=== PATIENT | female | born 1995 | race African-American/Black ===

== ENCOUNTER 2021-08-20 11:41 | Emergency (ER) | payer SELFPAY ==
--- NOTE | 2021-08-20 11:58 | PC.NURSE ---
1143 pt ambulated out of ed with steady gait with friend as soon as she was received.
--- NOTE | 2021-08-20 12:07 | PC.NURSE ---
1207 pt returned to ed,
[2021-08-20 12:12] VITALS: BP 137/68; PULSE 95; RESP 17; TEMP 36.2; O2SAT 100
--- NOTE | 2021-08-20 13:53 | PC.NURSE ---
1310 pt again ambulated out of ed with steady gait. has not returned at 1355
== END 2021-08-20 13:10 | disposition left against medical advice (07) ==
LOC: ANHED 14:18
DX: Z53.21 Procedure and treatment not carried out due to patient leaving prior to being seen by health care provider (principal)
CPT/HCPCS: 99199

== ENCOUNTER 2021-11-13 10:21 | Emergency (ER) | payer OTHER, SELFPAY ==
[2021-11-13 10:25] VITALS: BP 120/92; PULSE 95; RESP 18; TEMP 36.6; O2SAT 100
[2021-11-13 11:24] VITALS: PULSE 85; RESP 15
[2021-11-13 11:30] VITALS: PULSE 78; RESP 11
[2021-11-13 11:30] LABS: Beta HCG Quantitative < 2.39 mIU/ML
[2021-11-13 11:31] VITALS: BP 113/69; PULSE 77; RESP 17
--- NOTE | 2021-11-13 11:33 | ED.GENADULT ---
HPI - General Adult General Chief complaint: Recheck/Abnormal Lab/Rx Stated complaint: Lab Work - Possible Time Seen by Provider: 11/13/21 10:24 Source: RN notes reviewed History of Present Illness HPI narrative: Patient presents emergency department from home for possible . 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 Related Data Allergies Allergy/AdvReac Type Severity Reaction Status Date / Time No Known Allergies Allergy Verified 11/13/21 10:33 Review of Systems Review of Systems: Gen.: Denies fevers or chills ENT: Denies congestion Respiratory: Denies shortness of breath or cough CV: Denies chest pain GI: Denies abdominal pain nausea, emesis d see HPI Musculoskeletal: Denies back pain or muscle pain Neuro: Denies numbness, tingling, weakness or focal weakness Skin: Denies rash Except as documented, all other systems reviewed and negative PMF Past Medical History Medical History (Updated 11/13/21 @ 11:35 by Chente Velásquez DO) Ectopic Social History Social History (Updated 11/13/21 @ 11:34 by Chente Velásquez DO) Smoking status: Never smoker Exam Narrative: APPEARANCE: No acute distress, nontoxic, resting in bed EYES: EOMI HEENT: Normocephalic, atraumatic, OMM RESPIRATORY: No respiratory distress Clear to auscultation bilaterally with no rhonchi wheezing or rales. CARDIOVASCULAR: Regular rate and rhythm without murmurs rubs or gallops. ABDOMINAL: Soft, nontender, nondistended, no rebound or guarding MUSCULOSKELETAl: Moves all extremities. No clubbing, cyanosis or edema. NEURO: Awake and alert. Following commands, speech normal, no focal deficits SKIN:: Warm, dry. No rashes lesions or abrasions PSYCHIATRIC: Normal affect/mood, Course Course Emergency Course: Discussed with patient results of workup and diagnosis. Discussed need for follow-up with primary care, proper use of medication, and reasons to return to the emergency department. Patient understands and agrees to current treatment plan Vital Signs Vital signs: Vital Signs Temperature 97.9 F 11/13/21 10:25 Pulse Rate 95 11/13/21 10:25 Respiratory Rate 18 11/13/21 10:25 Blood Pressure 120/92 H 11/13/21 10:25 Pulse Oximetry 100 11/13/21 10:25 Temperature 97.9 F 11/13/21 10:25 Pulse Rate 77 11/13/21 11:31 Respiratory Rate 17 11/13/21 11:31 Blood Pressure 113/69 11/13/21 11:31 Pulse Oximetry 100 11/13/21 10:25 Medical Decision Making Vital Signs Vital Signs: Vital Signs Temperature 97.9 F 11/13/21 10:25 Pulse Rate 95 11/13/21 10:25 Respiratory Rate 18 11/13/21 10:25 Blood Pressure 120/92 H 11/13/21 10:25 Pulse Oximetry 100 11/13/21 10:25 Temperature 97.9 F 11/13/21 10:25 Pulse Rate 77 11/13/21 11:31 Respiratory Rate 17 11/13/21 11:31 Blood Pressure 113/69 11/13/21 11:31 Pulse Oximetry 100 11/13/21 10:25 Lab Data Labs: Lab Results 11/13/21 Range/Units 10:54 Beta HCG, Quant < 2.39 mIU/ML UCG Bedside Result Negative Reference Range: Negative Discharge Plan Discharge Clinical Impression: DUB (dysfunctional uterine bleeding) Patient Disposition: Home, Self-Care Condition: Stable Instructions: Antibiotic Form Follow-up/Referrals: Chandler Arreola MD [Physician] - (Follow-up in 2 to 3 days for further TRUANT OFFICER treatment and evaluation) PHYSICIAN NOT ON STAFF,NONSTAFF [Primary Care Provider] - T
[2021-11-13 11:44] VITALS: TEMP 36.3
== END 2021-11-13 11:45 | disposition home or self-care (01) ==
PROVIDERS: Emergency Provider Emergency Medicine
DX: N93.8 Other specified abnormal uterine and vaginal bleeding (principal)
CPT/HCPCS: 36415; 81025; 84702; 99283

== ENCOUNTER 2023-08-27 13:12 | Outpatient (CLI) | payer OTHER, SELFPAY ==
[2023-08-27 14:08] LABS: Beta HCG Quantitative < 2.39 mIU/ML
[2023-08-31 16:17] LABS: Progesterone 13.2 ng/mL (***)
== END 2023-08-27 13:13 | disposition home or self-care (01) ==
LOC: ANHLAB 13:15
PROVIDERS: Visit Provider Obstetrics & Gynecology
DX: Z32.01 Encounter for pregnancy test, result positive (principal)
CPT/HCPCS: 36415; 84144; 84702

== ENCOUNTER 2023-08-29 12:20 | Outpatient (CLI) | payer OTHER, SELFPAY ==
[2023-08-29 13:19] LABS: Beta HCG Quantitative 11.96 mIU/ML
[2023-09-02 07:22] LABS: Progesterone 9.3 ng/mL (***)
== END 2023-08-29 13:05 | disposition home or self-care (01) ==
LOC: ANHOBOP 12:28 → ANHLDR 12:29
PROVIDERS: Visit Provider Obstetrics & Gynecology
DX: Z34.90 Encounter for supervision of normal pregnancy, unspecified, unspecified trimester (principal); Z3A.00 Weeks of gestation of pregnancy not specified
CPT/HCPCS: 36415; 84144; 84702; 99199

== ENCOUNTER 2023-08-31 13:14 | Outpatient (CLI) | payer OTHER, SELFPAY ==
[2023-08-31 14:02] LABS: Beta HCG Quantitative 18.75 mIU/ML
== END 2023-08-31 13:15 | disposition home or self-care (01) ==
PROVIDERS: Visit Provider Obstetrics & Gynecology
DX: N91.2 Amenorrhea, unspecified (principal); Z32.01 Encounter for pregnancy test, result positive
CPT/HCPCS: 36415; 84702

== ENCOUNTER 2023-09-02 12:54 | Outpatient (CLI) | payer OTHER, SELFPAY | END 2023-09-02 12:55 | disposition home or self-care (01) | LOC: ANHLAB 12:56 | PROVIDERS: Visit Provider Obstetrics & Gynecology | DX: N91.2 Amenorrhea, unspecified (principal) | CPT/HCPCS: 36415; 84702 ==

== ENCOUNTER 2023-10-22 08:29 | Day surgery (SDC) | payer OTHER, SELFPAY ==
[2023-10-22] VITALS (18 sets, daily range): BP systolic 95–132; BP diastolic 41–79; PULSE 79–142; RESP 9–24; TEMP 36.6–36.9; O2SAT 98–100
--- NOTE | ~2023-10-22 | US_ITS ---
Pelvic ultrasound. Clinical History: Miscarriage, first trimester Technique: Realtime transabdominal and transvaginal scanning of the pelvis was performed. Color flow Doppler and Doppler spectral analysis were performed. Findings: The uterus is anteverted. No well-formed gestational sac seen. Endometrial contents are martín ewhat heterogeneous and thickened. There are focal areas of vascular flow in the endometrial contents on delayed imaging.. The right ovary measures 3.2 x 2.1 x 2.5 cm. No significant right ovarian or adnexal mass is seen. The left ovary measures 2.6 x 2.4 cm. No significant left ovarian or adnexal mass is seen. There is no evidence of free fluid in the cul de sac. Impression: Heterogeneous thickened endometrial stripe with areas of color flow suggests spontaneous wit h retained products of conception. No well-formed gestational sac identified. Reviewed, dictated and finalized at [facility]. EL DRAINER Impression: Heterogeneous thickened endometrial stripe with areas of color flow suggests sp ontaneous with retained products of conception. No well-formed gestati onal sac identified.
[2023-10-22] MEDS: SODIUM CHLORIDE 0.9% IV 2,000 ML 999 ML (08:50)
--- NOTE | 2023-10-22 09:00 | ED.FEMALEGU ---
HPI - Female Genitourinary General Chief complaint: Vaginal Bleeding Stated complaint: abd pain, heavy vag bleed Time Seen by Provider: 10/22/23 08:48 Source: patient and EMS Mode of arrival: EMS History of Present Illness HPI Narrative: 27 YEARS OLD FEMALE, 11 WEEKS , 5, PARA 1, 4 CAME TO THE EMERGENCY ROOM BY AMBULANCE FROM HOME WITH EXCESSIVE VAGINAL BLEEDING, BLOOD CLOTS, SEVERE LOWER ABDOMINAL CRAMPS RADIATING TO LOWER BACK. PATIENT IS TELLING ME THAT SHE HAVE HISTORY OF 2 ECTOPIC . Related Data Allergies Allergy/AdvReac Type Severity Reaction Status Date / Time No Known Allergies Allergy Verified 11/13/21 10:33 Review of Systems Review of Systems: All systems reviewed & are unremarkable except as noted in HPI and below PMFSH Past Medical History Medical History Ectopic Social History Social History Smoking status: Never smoker Exam Narrative: GENERAL APPEARANCE: WELL-DEVELOPED, WELL-NOURISHED, IN PAIN SKIN: NORMAL COLOR HEAD: NORMOCEPHALIC, NONTRAUMATIC EYES: CLEAR CONJUNCTIVA ENT: OROPHARYNX NORMAL, EARS NORMAL, NOSE NORMAL NECK: SUPPLE, NONTENDER CHEST AND RESPIRATORY: AIRWAY PATENT, NO RESPIRATORY DISTRESS, NO ACCESSORY MUSCLE USE HEART: REGULAR RATE/RHYTHM ABDOMEN: SOFT, DIFFUSE LOWER ABDOMINAL TENDERNESS, NO GUARDING OR REBOUND NO ORGANOMEGALY, QUIET BOWEL SOUNDS VASCULAR: NORMAL PERIPHERAL PULSES, NORMAL CAPILLARY REFILL. NEUROLOGIC: ALERT AND ORIENTED ?3, COOK 3 PASTRY IS NORMAL TESTED, NO GROSS MOTOR DEFICIT : Speculum Exam - Vagina: vaginal bleeding (ACTIVE VAGINAL BLEEDING, FRESH RED BRIGHT BLOOD WITH A LOT OF BLOOD CLOTS) Speculum Exam - Cervix: Cervical os closed (OPEN CERVIX) Other: VAGINAL PACKING WAS DONE IN THE ED BECAUSE OF THE SEVERITY OF THE BADGE BLEED Course Consultations Consultation #1: DR. KUO GOING TO THE OR FOR D AND C Date: 10/22/23 Time: 10:50 Vital Signs Vital signs: Vital Signs Temperature 36.9 C 10/22/23 08:29 Pulse Rate 142 H 10/22/23 08:29 Respiratory Rate 24 H 10/22/23 08:29 Blood Pressure 123/79 10/22/23 08:29 Pulse Oximetry 100 10/22/23 08:29 Oxygen Delivery Room Air 10/22/23 08:29 Temperature 36.9 C 10/22/23 08:29 Pulse Rate 104 H 10/22/23 10:31 Respiratory Rate 12 10/22/23 10:31 Blood Pressure 114/79 10/22/23 10:31 Pulse Oximetry 100 10/22/23 10:31 Oxygen Delivery Room Air 10/22/23 08:29 MDM - Female Genitourinary MDM Narrative Medical decision making narrative: PATIENT PRESENTS WITH VAGINAL BLEED AND BLOOD CLOTS, PELVIC EXAM SHOWED MODERATE ACTIVE BLEEDING WITH A LOT OF BLOOD CLOTS, VAGINAL PACKING WAS DONE, HEMOGLOBIN IS 9.6 Lab Data 10/22/23 08:57 Labs: Lab Results 10/22/23 Range/Units 08:57 WBC 6.9 (4.5-10.0) K/mm3 RBC 3.53 L (4.2-5.4) M/mm3 Hgb 9.6 L (12.0-15.0) g/dL Hct 30.1 L (37.0-47.0) % MCV 85.3 (80-100) fl MCH 27.2 (26-34) pg MCHC 31.9 L (32-36) g/dl RDW 15.1 H (11.5-14.5) % Plt Count 324 (150-375) k/mm3 MPV 11.3 H (7.4-10.4) fl Immature Gran % (Auto) 0.4 (0-0.5) % Neut % (Auto) 57.5 (45.5-73.1) % Lymph % (Auto) 33.6 (18.3-44.2) % [place] % (Auto) 7.2 (2.6-8.5) % Eos % (Auto) 0.9 (0-4.4) % Baso % (Auto) 0.4 (0.2-1.2) % Lymph # (Auto) 2.32 (0.9-3.2) K/mm3 [place] # (Auto) 0.5 (0.1-0.6) K/mm3 Eos # (Auto) 0.1 (0-0.3) K/mm3 Baso # (Auto) 0.0 (0.0-0.1) K/mm3 Abs Immat Gran (auto) 0.03 (0.00-0.031) K/mm3 Absolute Neuts (auto) 4.0 (1.3-6.7) K/mm3 Absolute Nucle
[2023-10-22 09:05] LABS: Basophils Percent Auto 0.4 % (0.2-1.2); Eosinophils Absolute Auto 0.1 K/mm3 (0-0.3); Eosinophils Percent Auto 0.9 % (0-4.4); Hematocrit 30.1 % (37.0-47.0); Hemoglobin 9.6 g/dL (12.0-15.0); Immature Granulocyte Absolute 0.03 K/mm3 (0.00-0.031); Immature Granulocyte Percent A 0.4 % (0-0.5); Lymphocytes Absolute Auto 2.32 K/mm3 (0.9-3.2); Lymphocytes Percent Auto 33.6 % (18.3-44.2); Mean Corpuscular HGB Conc 31.9 g/dl (32-36); Mean Corpuscular Hemoglobin 27.2 pg (26-34); Mean Corpuscular Volume 85.3 fl (80-100); Mean Platelet Volume 11.3 fl (7.4-10.4); Monocytes Absolute Auto 0.5 K/mm3 (0.1-0.6); Monocytes Percent Auto 7.2 % (2.6-8.5); Neutrophils Percent Auto 57.5 % (45.5-73.1); Platelet Count Result 324 k/mm3 (150-375); Red Blood Count 3.53 M/mm3 (4.2-5.4); Red Cell Distribution Width 15.1 % (11.5-14.5); White Blood Count 6.9 K/mm3 (4.5-10.0)
[2023-10-22] MEDS: ONDANSETRON INJ 4 MG/2 ML VIAL IV PUSH ×2 (09:23→14:08)
[2023-10-22] MEDS: HYDROmorphone HCL INJ (*CRX) 1 MG/ML SYR 0.5 MG IV PUSH (09:24)
[2023-10-22 09:55] LABS: INR 1.1
[2023-10-22 09:56] LABS: Partial Thromboplastin Time 25.1 SECONDS (22.3-36.8)
--- NOTE | 2023-10-22 11:46 | WPDANESEPPF ---
Anes - Initial Pre Proc Eval Procedure: Operation Date: 10/22/23 11:00 Proposed Procedures p Suction Dilation and Curettage - Joseph Leslie MD Date/Time: 10/22/23 11:46 Surgeon: Joseph Leslie MD Pre Op Diagnosis: abd pain, heavy vag bleed Patient Data Age: 27 Gender: F Height: 1.55 m Weight: 81 kg Last Vital Signs Temp 36.6 C 10/22/23 11:37 Pulse 109 H 10/22/23 11:37 Resp 16 10/22/23 11:10 BP 118/53 L 10/22/23 11:37 Pulse Ox 100 10/22/23 11:37 O2 Del Method Room Air 10/22/23 08:29 Allergies Allergy/AdvReac Type Severity Reaction Status Date / Time No Known Allergies Allergy Verified 11/13/21 10:33 Laboratory Tests 10/22/23 08:57 WBC 6.9 K/mm3 (4.5-10.0) RBC 3.53 L M/mm3 (4.2-5.4) Hgb 9.6 L g/dL (12.0-15.0) Hct 30.1 L % (37.0-47.0) MCV 85.3 fl (80-100) MCH 27.2 pg (26-34) MCHC 31.9 L g/dl (32-36) RDW 15.1 H % (11.5-14.5) Plt Count 324 k/mm3 (150-375) MPV 11.3 H fl (7.4-10.4) Immature Gran % (Auto) 0.4 % (0-0.5) Neut % (Auto) 57.5 % (45.5-73.1) Lymph % (Auto) 33.6 % (18.3-44.2) [place] % (Auto) 7.2 % (2.6-8.5) Eos % (Auto) 0.9 % (0-4.4) Baso % (Auto) 0.4 % (0.2-1.2) Lymph # (Auto) 2.32 K/mm3 (0.9-3.2) [place] # (Auto) 0.5 K/mm3 (0.1-0.6) Eos # (Auto) 0.1 K/mm3 (0-0.3) Baso # (Auto) 0.0 K/mm3 (0.0-0.1) Abs Immat Gran (auto) 0.03 K/mm3 (0.00-0.031) Absolute Neuts (auto) 4.0 K/mm3 (1.3-6.7) Absolute Nucleated RBC 0.0 K/mm3 (0.0-0.012) Nucleated RBC % 0.0 % (0.0-0.2) PT 15.0 H Seconds (11.1-14.7) INR 1.1 APTT 25.1 SECONDS (22.3-36.8) Beta HCG, Quant 9230.60 mIU/ML Blood Type A Positive Antibody Screen Negative Screen Not Reportable Baby's Blood Type Not Reportable Baby's ROGER Not Reportable Doses of RhIg Required 0 Patient hx anesthesia problems: none Family hx anesthesia problems: none Results Review: All pre-operative results and documents have been reviewed as part of the pre-operative evaluation. [facility] Past Medical History Medical History Ectopic Social History Social History Smoking status: Never smoker Anes - Eval Final PreProcedure Day of Procedure 10/22/23 11:46 Patient weight: obese Heart: tachycardia Lungs: clear to auscultation Airway: Mallampati scale class II Neurological: alert and oriented Last oral intake: >/= 8 hours ASA classification: III Emergent: no Anesthetic plan: proceed Anesthesia type and monitoring: general GIVS and standard monitoring Results Review: All pre-operative results and documents have been reviewed as part of the pre-operative evaluation. Informed Consent: The patient's anesthetic plan and its attendant risks and benefits were discussed with the patient/family/POA. Questions were solicited and answers provided to the satisfaction of the patient/family/POA.
[2023-10-22] MEDS: LACTATED RINGERS 1,000 ML 30 ML IV CONT ×2 (11:50→13:45)
--- NOTE | 2023-10-22 12:16 | PM.IMHP ---
H&P: HPI History of Present Illness Date/Time: 10/22/23 12:16 Chief Complaint: vaginal bleeding, incomplete miscarriage Narrative: Patient presents for vaginal bleeding since midnight. Was diagnosed on 10/08 with missed miscarriage; was deciding management options when she started having worsening bleeding. Also reports dizziness and lightheadedness. Abdominal cramping. Denies fevers or chills. Was seen in the ER, had Hgb 9.6 and tachycardic. Review of Systems Review of Systems: All systems reviewed & are unremarkable except as noted in HPI and below PMFSH Past Medical History Medical History Ectopic Social History Social History Smoking status: Never smoker Meds Home Medications and Allergies Allergies Allergy/AdvReac Type Severity Reaction Status Date / Time No Known Allergies Allergy Verified 11/13/21 10:33 Vital Signs Vital Signs - 24 hr 10/22/23 08:29 10/22/23 08:36 10/22/23 08:51 Temperature 98.4 F Pulse Rate 142 H 141 H 120 H Respiratory Rate 24 H 15 16 Blood Pressure 123/79 123/79 123/57 L Pulse Oximetry 100 100 100 Oxygen Delivery Room Air 10/22/23 09:25 10/22/23 09:31 10/22/23 09:46 Temperature Pulse Rate 104 H 112 H 101 H Respiratory Rate 16 9 L 14 Blood Pressure 102/66 114/75 124/70 Pulse Oximetry 100 100 100 Oxygen Delivery 10/22/23 10:01 10/22/23 10:16 10/22/23 10:21 Temperature Pulse Rate 121 H 121 H 96 Respiratory Rate 11 L 12 20 Blood Pressure 132/72 95/69 L 114/58 L Pulse Oximetry 100 100 100 Oxygen Delivery 10/22/23 10:31 10/22/23 11:10 10/22/23 10:46 Temperature Pulse Rate 104 H 96 101 H Respiratory Rate 12 16 9 L Blood Pressure 114/79 108/58 L 110/53 L Pulse Oximetry 100 100 100 Oxygen Delivery 10/22/23 11:37 10/22/23 11:21 Temperature 97.9 F 97.9 F Pulse Rate 109 H 109 H Respiratory Rate Blood Pressure 118/53 L 118/53 L Pulse Oximetry 100 100 Oxygen Delivery Room Air Exam Const: General: comfortable and no acute distress Eyes: General: appearance normal, both eyes and all related structures Resp: Effort & Inspection: normal respiratory effort Cardio: Rate: tachycardic Rhythm: regular rhythm Skin: General skin exam: normal color Extrem: General: normal to inspection Psych: Mental Status: mental status grossly normal H&P: Results Labs Labs: Short CBC 10/22/23 Range/Units 08:57 WBC 6.9 (4.5-10.0) K/mm3 Hgb 9.6 L (12.0-15.0) g/dL Hct 30.1 L (37.0-47.0) % Plt Count 324 (150-375) k/mm3 Assessment and Plan Assessment and plan (1) Incomplete : Code(s): O03.4 - Incomplete spontaneous without complication Status: Acute Assessment and Plan: Vaginal bleeding starting at midnight Tachycardic in ER Pelvic US in ER demonstrates heterogenous contents, no gestational sac or embryo c/w incomplete Ab R/b/a of the procedure discussed with the patient, who agrees to suction D&C Will proceed with suction D&C
--- NOTE | 2023-10-22 12:24 | WPDHPUPDATE1 ---
History and Physical Update Update Date/Time: 10/22/23 12:24 History and Physical has been reviewed, including an updated exam of the patient. There are NO changes in the patient's condition. Risks, benefits, and alternatives have been discussed and questions answered. Patient agrees to proceed with procedure.
[2023-10-22] MEDS: LIDOCAINE HCL 1% LOCAL INJ 10 ML VIAL INFILTRATE (12:46)
[2023-10-22] MEDS: fentaNYL CITRATE INJ (*CRX) 100 MCG/2 ML VIAL 25 MCG IV PUSH ×3 (13:09→13:25)
--- NOTE | 2023-10-22 13:37 | SUR.PHASEII ---
DR. CAMPBELL CALLED RE: PATIENT'S REQUEST FOR PAIN MED PRESCRIPTION.
[2023-10-22] MEDS: oxyCODONE HCL (*CRX) 5 MG TAB IR PO (14:26)
--- NOTE | 2023-10-22 15:04 | W.PM.PROC2 ---
Procedure Note - Detailed Date of Procedure 10/22/23 Pre-op Diagnosis abd pain, heavy vag bleed Post-op Diagnosis Same Procedure Performed suction D&C Surgeon Cleveland Bass MD Anesthesia MAC Findings large amount of blood and clots in vaginal vault, large piece of tissue at external os, uterus well contracted and bleeding minimal at end of procedure Description of Procedure The patient was then taken to the operating room with IVFs running. She was placed in the dorsal supine position where she received MAC anesthesia without any difficulty.?? The patient was placed in the dorsal lithotomy position using selena stirrups. EUA revealed the above findings. She was then prepped and draped in a normal sterile fashion. A time-out procedure was performed and all members of the OR team agreed on the patient and plan. A bivalved speculum was then inserted into the patient's vagina.? The anterior lip of the cervix was grasped with a ring forceps.The suction curette was tested outside the patient and found to be working properly.? The curette was then advanced into the intrauterine cavity and circumferentially removed.? All products of conception were removed until little tissue was seen passing through the tubing.? A sharp curettage was then performed until a gritty texture was noted.? The specimen was sent to pathology.? The ring forceps was removed from the anterior lip of the cervix.? The bivalve speculum was removed.? The patient tolerated the procedure well.? Sponge, lap, needle, and instrument counts were correct X3.? The patient was awakened from anesthesia and taken to the recovery room in stable condition. ? Estimated Blood Loss 50 Pathology Yes (products of conception for genetic testing) Condition Stable Disposition Same day
== END 2023-10-22 14:30 | disposition home or self-care (01) ==
LOC: ANHED 10:52 → ANHSURGERY 11:05
PROVIDERS: Obstetrics & Gynecology; Emergency Provider Emergency Medicine; Visit Provider Obstetrics & Gynecology
PROC: (CPT 59812; principal; 2023-10-22 11:00)
DX: O03.4 Incomplete spontaneous abortion without complication (principal)
CPT/HCPCS: 59812; 36415; 76801; 84702; 85025; 85461; 85610; 85730; 86850; 86900; 86901; 88264; 88305; 96360; 99285; A9270; J1170; J2250; J2405; J2704; J3010; J7030; J7120

== ENCOUNTER 2023-10-27 01:43 | Emergency (ER) | payer OTHER, SELFPAY ==
[2023-10-27 01:49] VITALS: BP 130/66; PULSE 97; RESP 16; TEMP 36.4; O2SAT 100
--- NOTE | 2023-10-27 03:26 | PC.NURSE ---
Patient walked out before being brought back to room.
== END 2023-10-27 03:39 | disposition left against medical advice (07) ==
LOC: ANHED 03:32
DX: R42 Dizziness and giddiness (principal)
CPT/HCPCS: 99199

== ENCOUNTER 2023-10-29 16:08 | Observation (INO) | payer OTHER, SELFPAY ==
[2023-10-29] VITALS (9 sets, daily range): BP systolic 114–148; BP diastolic 65–77; PULSE 83–120; RESP 12–18; TEMP 36.2–37.1; O2SAT 100; BMI 32.8
--- NOTE | 2023-10-29 14:20 | ADMGEN ---
This patient, Marnie Jones, was admitted to 3 Med Surg Room 319-01 @ 1420. Patient/family oriented to hospital policies and general routines including ID bracelet, bed and alarms, visiting hours, pain management, procedures, bathroom and other care routines, personal items, smoking policy, room service/diet, and visiting hours. Information on how to activate the Rapid Response Team has been discussed. Patient/Family are encouraged to report perceived risks to care and to ask questions if they do not understand what they are told or what they should do.
--- NOTE | 2023-10-29 16:10 | PM.IMHP ---
H&P: HPI History of Present Illness Date/Time: 10/29/23 16:15 Chief Complaint: Symptomatic anemia. 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 Bass. [facility] [place] Past Medical History Medical History Ectopic Social History Social History Years smoked: 15 Smoking status: Current every day smoker Tobacco type: cigarettes Alcohol intake: current Drinks per week: 1 Substance use: never Do You Feel Safe in your Home?: Yes Lack of Transportation: No Lack of Food: Never True Current Housing: I Have Housing Concerned About Future Housing: No Difficulty Paying Gas/Electric Bills: No Difficulty Paying for Meds: No Currently Unemployed: No Education: Decline to Answer Difficulty w/ Childcare or Family Care: No Spiritual care concerns: No Meds Home Medications and Allergies Home Medications Medication Instructions Recorded Confirmed Type diphenhydramine HCl 25 mg capsule 25 mg PO DAILY 10/29/23 10/29/23 History (Banophen) metoclopramide HCl 10 mg tablet 10 mg PO DAILY 10/29/23 10/29/23 History sumatriptan succinate 50 mg tablet 50 mg PO BID 10/29/23 10/29/23 History Allergies Allergy/AdvReac Type Severity Reaction Status Date / Time No Known Allergies Allergy Verified 11/13/21 10:33 Vital Signs Vital Signs - 24 hr 10/29/23 14:51 Temperature 97.6 F Pulse Rate 120 H Respiratory Rate 17 Blood Pressure 124/72 Pulse Oximetry 100
[2023-10-29 16:38] LABS: Mean Corpuscular Hemoglobin 26.6 pg (26-34); Mean Corpuscular Volume 88.8 fl (80-100); Mean Platelet Volume 9.8 fl (7.4-10.4); Platelet Count Result 445 k/mm3 (150-375); Red Blood Count 2.33 M/mm3 (4.2-5.4); Red Cell Distribution Width 15.9 % (11.5-14.5); White Blood Count 10.8 K/mm3 (4.5-10.0)
[2023-10-29 16:41] LABS: Hematocrit 20.7 % (37.0-47.0); Hemoglobin 6.2 g/dL (12.0-15.0)
[2023-10-29 16:46] LABS: Iron 24 ug/dL (37-170)
[2023-10-29 16:48] LABS: Anion Gap 6 mmol/L (8-16); Blood Urea Nitrogen 6 mg/dL (7-17); Calcium 8.4 mg/dL (8.4-10.2); Carbon Dioxide 24 mmol/L (22-30); Chloride 108 mmol/L (98-107); Estimated CRCL calculation 99 ml/min; Estimated Glomerular Filt Rate > 60; Glucose 104 mg/dL (65-110); Potassium 3.8 mmol/L (3.4-5.0); Sodium 138 mmol/L (137-145)
[2023-10-29 16:55] LABS: Percent Iron Saturation 6 % (20-50)
[2023-10-29 17:19] LABS: Thyroid Stimulating Hormone Reflex 0.531 uIU/mL (0.465-4.68)
[2023-10-29 17:23] LABS: Ferritin 7.51 ng/mL (6.24-137)
--- NOTE | 2023-10-29 17:35 | PC.NURSE ---
The pt disclosed to this RN that she is very anxious about receiving a blood transfusion and that she has never had one before. This RN attempted to educate pt on blood transfusions and quell pt's anxiety. The pt seemed very distraught and asked this RN if she could step outside 'for some fresh air' and to 'smoke a cigarette to calm her nerves.' This RN explained hospital policies and risk factors/safety precautions about leaving the floor, and told the pt that this RN would reach out to the MD to see if there was anything that could be done to reassure the pt. The pt agreed with this plan of action and expressed understanding of the hospital policies. Not even 10-15 minutes after this conversation, other hospital staff witnessed the pt and pt's go into the elevator. plisse machine operator helper was alerted and charge accounts audit clerk was able to confront the pt and pt's before they exited the building. plisse machine operator helper walked pt and pt's back to their room and re-educated on hospital policy. Pt expressed that she wanted to leave against medical advice due to family obligations. This RN notified .
[2023-10-29 17:53] LABS: Folic Acid 7.4 ng/mL (2.76->20)
[2023-10-29] MEDS: TUBING, BLOOD PLUM PUMP TUBING 1 EACH XX (18:49)
[2023-10-29] MEDS: SODIUM CHLORIDE 0.9% IV 250 ML 30 ML IV CONT (18:49)
[2023-10-29] MEDS: ALPRAZolam (*CRX) 0.25 MG TABLET PO (19:04)
--- NOTE | 2023-10-29 23:06 | PM.SD2 ---
Same Day Admit/Disch: HPI History of Present Illness Chief complaint: Symptomatic Anemia Narrative: This is a pleasant 27-year-old female who was directly admitted at the request of her TRANSFER AND LINE UP WORKER specialist, Dr. Cleveland Bass, for blood transfusion due to symptomatic anemia. She was diagnosed on 10/18/2023 with missed miscarriage and was deciding management options when she started to have significant bleeding with large amounts of clots. She was seen in the emergency department for evaluation on 10/22/2023 at which time she was tachycardic with a hemoglobin of 9.6. She was taken to the OR for suction D&C and she was stable to be discharged home for close follow-up thereafter. Since that time she has noticed progressive fatigue, shortness of breath with exertion, sensations of racing heart, and she has been having headaches. She saw Dr. Bass in follow-up yesterday and lab work done at that time showed that her hemoglobin was below 7 g and she is being directly admitted for blood transfusion. Hemoglobin and hematocrit are currently 6.2 and 20.7% respectively. She has mild spotting but denies significant vaginal bleeding. [facility] Past Medical History Medical History Ectopic Surgical History Surgical History History of dilation and curettage History of surgery on upper extremity Family History Family History Other Family history non-contributory Social History Social History Years smoked: 15 Smoking status: Current every day smoker Tobacco type: cigarettes Alcohol intake: current Drinks per week: 1 Substance use: never Do You Feel Safe in your Home?: Yes Lack of Transportation: No Lack of Food: Never True Current Housing: I Have Housing Concerned About Future Housing: No Difficulty Paying Gas/Electric Bills: No Difficulty Paying for Meds: No Currently Unemployed: No Education: Decline to Answer Difficulty w/ Childcare or Family Care: No Spiritual care concerns: No Same Day Admit/Disch: Med Pre-admit Medications Home Medications Medication Instructions Recorded Confirmed Type ferrous sulfate 325 mg (65 mg 325 mg PO DAILY #30 tabs 10/29/23 Rx iron) tablet sumatriptan succinate 50 mg tablet 50 mg PO BID 10/29/23 10/29/23 History Review of Systems Review of Systems Twelve systems were reviewed. No syncope or near sycope. No fever, chills, or sweats. She denies cold and flu symptoms. No chest or pleuritic pain. No lower extremity edema. No abdomen or pelvic pain. Except as documented, all other systems were reviewed and are negative. Exam Narrative: General: Well-developed, nontoxic-appearing female sitting up in bed in no acute distress. Weight: 78.8 kg. BMI: 32.8. HEENT: PERRL, EOMI. Sclera anicteric. Pale conjunctiva. Moist mucous membranes. Neck: Supple. Respiratory: Lungs are clear to auscultation bilaterally. Cardiovascular: Regular rate and rhythm with S1-S2. Gastrointestinal: Abdomen is soft, nontender, and nondistended with positive bowel sounds. Skin: Warm and dry. Palms are pale. Extremities: No cyanosis, clubbing, or edema. Radial and pedal pulses intact. Neurological: Alert. Cranial nerves 2-12 are grossly intact. No gross focal deficits to casual conversation. Psychiatric: Pleasant and cooperative with normal mood and affect. Judgment and insight intact. DS: Data Data Completed and Pending Labs on day of discharge: Labs from last 24 hours 10/29/23 16:27 WBC 10.8 H RBC 2.33 L Hgb 6.2 L* D Hct 20.7 L* MCV 88.8 MCH 26.6 MCHC 30.0 L RDW 15.9 H Plt Count 445 H MPV 9.8 Sodium 138 Potassium 3.8 Chloride 108 H Carbon Dioxide 24 Anion Gap 6 L BUN 6 L Creatinine 0.70 Estim Creat Clear Kvng
== END 2023-10-29 23:45 | disposition home or self-care (01) ==
PROVIDERS: Physician Assistant; Admitting Provider Internal Medicine; Visit Provider Internal Medicine
DX: D50.9 Iron deficiency anemia, unspecified (principal); Z98.890 Other specified postprocedural states; F17.210 Nicotine dependence, cigarettes, uncomplicated; F10.90 Alcohol use, unspecified, uncomplicated; Z79.899 Other long term (current) drug therapy
CPT/HCPCS: 36415; 36430; 80048; 82607; 82728; 82746; 83540; 83550; 84443; 85027; 86850; 86900; 86901; 86923; 96360; 96361; A9270; G0378; G0379; J7050; P9016

== ENCOUNTER 2023-10-30 12:01 | Outpatient (CLI) | payer OTHER, SELFPAY ==
[2023-10-30 13:14] LABS: Hematocrit 31.4 % (37.0-47.0); Hemoglobin 10.2 g/dL (12.0-15.0); Mean Corpuscular HGB Conc 32.5 g/dl (32-36); Mean Corpuscular Hemoglobin 28.5 pg (26-34); Mean Corpuscular Volume 87.7 fl (80-100); Mean Platelet Volume 9.7 fl (7.4-10.4); Platelet Count Result 490 k/mm3 (150-375); Red Blood Count 3.58 M/mm3 (4.2-5.4); Red Cell Distribution Width 14.9 % (11.5-14.5); White Blood Count 11.6 K/mm3 (4.5-10.0)
== END 2023-10-30 12:02 | disposition home or self-care (01) ==
LOC: ANHLAB 12:02
PROVIDERS: Visit Provider Physician Assistant
DX: E61.1 Iron deficiency (principal); D64.9 Anemia, unspecified
CPT/HCPCS: 36415; 85027

== ENCOUNTER 2024-03-11 13:37 | Outpatient (CLI) | payer OTHER, SELFPAY ==
[2024-03-11 14:41] LABS: Beta HCG Quantitative 33.72 mIU/ML
== END 2024-03-11 13:38 | disposition home or self-care (01) ==
PROVIDERS: Visit Provider Obstetrics & Gynecology
DX: Z32.01 Encounter for pregnancy test, result positive (principal); N91.2 Amenorrhea, unspecified
CPT/HCPCS: 36415; 84702

== ENCOUNTER 2024-03-19 10:35 | Outpatient (RCR) | payer OTHER, SELFPAY ==
--- NOTE | ~2024-03-19 | US_ITS ---
EXAMINATION: US OB <=14 wk fetus w TV DATE: 03/19/2024 11:31 INDICATION: Right-sided cramping during first trimester TECHNIQUE: Real-time pelvic ultrasound utilizing both a transvaginal and transabdominal probe was pe rformed. The interpreting radiologist was not present for the study. COMPARISON: None. FINDINGS: The uterus measures 8.5 x 5.5 x 5.4 cm. There is a possible intrauterine gestational sac with sugges tion of a double decidual sign on the cine imaging and with mean sac diameter of 3.5 mm. No evident y olk sac or pole identified. The right ovary measures 3.6 x 2.3 x 2.5 cm. The left ovary measures 2.6 x 2.0 x 1.8 cm. Vascular eula w identified on color Doppler at both ovaries. There is and minimal amount of anechoic free fluid in the deep pelvis. IMPRESSION: 1. 3.5 mm likely but not definitively intrauterine gestational sac which is without evident yolk sac or pole likely due to early stage of . Differential would include early, failed or les s likely ectopic . 2. Gestational age by ultrasound based upon mean sac diameter of 5 weeks 1 day(s) +/- 3 day(s) with ultrasound estimated date of delivery ([facility]IE) of 11/18/24. Reviewed, dictated and finalized at location A. IMPRESSION: 1. 3.5 mm likely but not definitively intrauterine gestational sac which is wit hout evident yolk sac or pole likely due to early stage of . Dif ferential would include early, failed or less likely ectopic . 2. Gestational age by ultrasound based upon mean sac diameter of 5 weeks 1 day (s) +/- 3 day(s) with ultrasound estimated date of delivery ([facility]ILLIE) of 11/18/24.
--- NOTE | 2024-03-19 11:55 | PC.NURSE ---
Dr. Leslie on unit. Informed of ultrasound report and beta-HCG level. Instruct pt to return in 2 days for repeat beta-HCG and follow up in office this week.
[2024-03-20 21:33] LABS: Progesterone 8.6 ng/mL
== END 2024-06-17 23:59 | disposition home or self-care (01) ==
LOC: ANHOBOP 10:35
PROVIDERS: Obstetrics & Gynecology; Visit Provider Obstetrics & Gynecology
DX: N91.2 Amenorrhea, unspecified (principal)
CPT/HCPCS: 36415; 76801; 76817; 84144; 84702

== ENCOUNTER 2024-04-30 14:21 | Emergency (ER) | payer OTHER, SELFPAY ==
--- NOTE | 2024-04-30 15:10 | PC.NURSE ---
pt ambulated out of ED with sig other, did not want to eait any longer
== END 2024-04-30 15:10 | disposition left against medical advice (07) ==
LOC: ANHED 16:36
DX: O26.851 Spotting complicating pregnancy, first trimester (principal); Z3A.11 11 weeks gestation of pregnancy
CPT/HCPCS: 99199

== ENCOUNTER 2024-09-11 02:13 | Emergency (ER) | payer OTHER, SELFPAY ==
--- NOTE | 2024-09-11 02:05 | ECG_ITS ---
Test Date: 2024-09-11 02:12:26 Measurements Intervals [place] Rate: 89 P: 53 ID: [id number] QRS: 18 QRSD: 89 T: 9 QT: 339 QTc: 414 Interpretive Statements SINUS RHYTHM WITH OCCASIONAL VENTRICULAR PREMATURE COMPLEXES No previous ECG available for comparison Electronically Signed On 09-12-2024 14:50:41 [facility] by Buddy Horner M.D.
[2024-09-11 02:10] VITALS: BP 114/71; PULSE 94; RESP 16; TEMP 36.6; O2SAT 100
[2024-09-11 02:26] LABS: Basophils Percent Auto 0.3 % (0.2-1.2); Eosinophils Absolute Auto 0.2 K/mm3 (0-0.3); Eosinophils Percent Auto 1.5 % (0-4.4); Hematocrit 31.4 % (37.0-47.0); Hemoglobin 10.5 g/dL (12.0-15.0); Immature Granulocyte Absolute 0.09 K/mm3 (0.00-0.031); Immature Granulocyte Percent A 0.9 % (0-0.5); Lymphocytes Absolute Auto 2.15 K/mm3 (0.9-3.2); Lymphocytes Percent Auto 21.5 % (18.3-44.2); Mean Corpuscular HGB Conc 33.4 g/dl (32-36); Mean Corpuscular Volume 83.7 fl (80-100); Mean Platelet Volume 10.4 fl (7.4-10.4); Monocytes Absolute Auto 0.7 K/mm3 (0.1-0.6); Monocytes Percent Auto 6.9 % (2.6-8.5); Neutrophils Absolute Auto 6.9 K/mm3 (1.3-6.7); Neutrophils Percent Auto 68.9 % (45.5-73.1); Platelet Count Result 282 k/mm3 (150-375); Red Blood Count 3.75 M/mm3 (4.2-5.4); Red Cell Distribution Width 13.6 % (11.5-14.5)
[2024-09-11 02:37] LABS: Prothrombin Time 13.6 Seconds (11.1-14.7)
[2024-09-11 02:38] LABS: Alanine Aminotransferase 13 U/L (6-35); Albumin Level 3.6 g/dL (3.5-5.1); Alkaline Phosphatase 100 U/L (38-126); Anion Gap 7 mmol/L (4-12); Aspartate Amino Transferase 16 U/L (14-36); Bilirubin,Total 0.3 mg/dL (0.2-1.3); Blood Urea Nitrogen 4 mg/dL (7-17); Calcium 8.8 mg/dL (8.4-10.2); Carbon Dioxide 17 mmol/L (22-30); Chloride 109 mmol/L (98-107); Estimated CRCL calculation 162 ml/min; Estimated Glomerular Filt Rate > 60; Glucose 94 mg/dL (65-110); Lipase 77 U/L (23-300); Magnesium 1.5 mg/dL (1.6-2.3); Potassium 3.2 mmol/L (3.4-5.0); Sodium 133 mmol/L (137-145)
[2024-09-11] MEDS: SODIUM CHLORIDE 0.9% IV 1,000 ML 999 ML IV CONT (02:43)
--- NOTE | 2024-09-11 03:18 | ED_ITS ---
HPI - Arrhythmia/Palpitations General Chief Complaint: Arrhythmia/Palpitations Stated Complaint: rapid heart rate History of Present Illness HPI narrative: Patient is a 28-year-old female who presents to the emergency department this evening via EMS due to palpitations. Patient admits that she does have a history of SVT and today when her heart started racing she called EMS due to concern for this. Per EMS report, upon their arrival, they did attempt vagal maneuver twice with improvement of patient's symptoms. Patient's initial heart rate was over 150. Upon arrival to the emergency department, patient is back in sinus rhythm. Patient admits that she does have a history of SVT and that this is not her 1st time. Denies any chest pain or shortness of breath, denies any abdominal pain. Patient is approximately 28 weeks . Denies any vaginal bleeding or spotting. No additional symptoms or concerns at this time. Related Data Home Medications ?Medication ?Instructions ?Recorded ?Confirmed ?Last Taken ?Type sumatriptan succinate 50 mg tablet 50 mg PO BID 10/29/23 10/29/23 10/28/23 09:00 History Allergies Allergy/AdvReac Type Severity Reaction Status Date / Time No Known Allergies Allergy Verified 11/13/21 10:33 Review of Systems 2 Review of Systems: All systems are reviewed and are negative unless stated otherwise in the HPI. [facility] Past Medical History Medical History Ectopic Surgical History Surgical History History of surgery on upper extremity History of dilation and curettage Family History Family History Other Family history non-contributory Social History Social History Years smoked: 15 Smoking status: Current every day smoker Tobacco type: cigarettes Alcohol intake: current Drinks per week: 1 Substance use: never Do You Feel Safe in your Home?: Yes Lack of Transportation: No Lack of Food: Never True Current Housing: I Have Housing Concerned About Future Housing: No Difficulty Paying Gas/Electric Bills: No Difficulty Paying for Meds: No Currently Unemployed: No Education: Decline to Answer Difficulty w/ Childcare or Family Care: No Spiritual care concerns: No Exam 2 Narrative: General: Alert, awake, afebrile, in no acute distress. HEENT: PERRL, no rhinorrhea, no post nasal drip, oropharynx clear. Neck: Trachea midline, no JVD, no lymphadenopathy. Cardiovascular: Regular rate and rhythm, no murmurs, rubs or gallops, no peripheral edema. Respiratory: Clear to auscultation bilaterally, no tachypnea, no wheezing, no rhonchi, no rubs, no respiratory distress. Abdomen: Gravid, nontender, no rebound, no guarding, no peritoneal signs. Musculoskeletal: No joint swelling or deformity, normal muscle tone. Skin: No rashes or petechia, no signs of infection. Psychiatric: Alert and oriented, normal behavior and judgment for situation. Neurological: Alert and oriented to person, place, and time. Follows all commands. No focal deficits, speech is clear and fluent. Course Vital Signs Vital signs: Vital Signs Temperature 97.8 F 09/11/24 02:10 Pulse Rate 94 09/11/24 02:10 Respiratory Rate 16 09/11/24 02:10 Blood Pressure 114/71 09/11/24 02:10 Pulse Oximetry 100 09/11/24 02:10 Oxygen Delivery Room Air 09/11/24 02:10 Temperature 97.8 F 09/11/24 02:10 Pulse Rate 76 09/11/24 04:43 Respiratory Rate 15 09/11/24 04:43 Blood Pressure 118/72 09/11/24 04:43 Pulse Oximetry 100 09/11/24 04:43 Oxygen Delivery Room Air 09/11/24 02:10 MDM - Arrhythmia/Palpitations MDM Narrative Medical decision making narrative: The patient was evaluated by myself in the emergency department. History is obtained from patient who is an independent historian and physical exam was performed. External medical records were reviewed at this time. IV was established and pertinent tests were ordered. heart tones 150 bpm. Patient was administered 1 L IV fluid bolus with normal saline. EKG was obtained which revealed sinus rhythm at a rate of 89 beats per minute . No ST changes, T wave inversions or evidence of acute ischemia. EKG was independently interpreted by me and is currently pending official cardiology read. Laboratory results obtained revealing a potassium level of 3.2 and a Mag of 1.5. At this time patient was administered 1 g of IV magnesium sulfate and 20 mEq of oral potassium chloride. Differential diagnosis considerations include dehydration, arrhythmia, electrolyte derangements, infectious process. Comorbidities impacting this visit include history of SVT. I have evaluated and discussed social determinants of health with the patient that could potentially impact subsequent diagnosis and treatment plans. On repeat assessment of the patient, reevaluation revealed that the patient is doing well and is in no acute distress. Patient symptoms have improved since she arrived to our emergency department. Repeat vital signs were all reviewed and noted to be stable. Differential diagnosis and treatment plan were discussed with the patient at bedside. Patient agrees with discussion and after shared medical decision making agrees with discharge. All questions were answered to the patient's satisfaction. Patient will follow up with her OBGYN in 3-5 days. Patient was provided with strict return precautions and instructed to return to the emergency department if any new or worsening symptoms develop. The patient was discharged in stable condition. Lab Data 09/11/24 02:17 09/11/24 02:17 Labs: Lab Results 09/11/24 09/11/24 Range/Units 02:17 02:17 WBC 10.0 (4.5-10.0) K/mm3 RBC 3.75 L (4.2-5.4) M/mm3 Hgb 10.5 L (12.0-15.0) g/dL Hct 31.4 L (37.0-47.0) % MCV 83.7 (80-100) fl MCH 28.0 (26-34) pg MCHC 33.4 (32-36) g/dl RDW 13.6 (11.5-14.5) % Plt Count 282 (150-375) k/mm3 MPV 10.4 (7.4-10.4) fl Immature Gran % (Auto) 0.9 H (0-0.5) % Neut % (Auto) 68.9 (45.5-73.1) % Lymph % (Auto) 21.5 (18.3-44.2) % [place] % (Auto) 6.9 (2.6-8.5) % Eos % (Auto) 1.5 (0-4.4) % Baso % (Auto) 0.3 (0.2-1.2) % Lymph # (Auto) 2.15 (0.9-3.2) K/mm3 [place] # (Auto) 0.7 H (0.1-0.6) K/mm3 Eos # (Auto) 0.2 (0-0.3) K/mm3 Baso # (Auto) 0.0 (0.0-0.1) K/mm3 Abs Immat Gran (auto) 0.09 H (0.00-0.031) K/mm3 Absolute Neuts (auto) 6.9 H (1.3-6.7) K/mm3 Absolute Nucleated RBC 0.000 (0.0-0.012) K/mm3 Nucleated RBC % 0.0 (0.0-0.2) % PT 13.6 (11.1-14.7) Seconds INR 1.0 APTT 28.0 (22.3-36.8) Seconds Sodium 133 L (137-145) mmol/L Potassium 3.2 L (3.4-5.0) mmol/L Chloride 109 H (98-107) mmol/L Carbon Dioxide 17 L (22-30) mmol/L Anion Gap 7 (4-12) mmol/L BUN 4 L (7-17) mg/dL Creatinine 0.40 L (0.7-1.0) mg/dL Estim Creat Clear Calc 162 ml/min Estimated GFR > 60 (59 - ) Glucose 94 (65-110) mg/dL Calcium 8.8 (8.4-10.2) mg/dL Magnesium 1.5 L Cancelled (1.6-2.3) mg/dL Total Bilirubin 0.3 (0.2-1.3) mg/dL AST 16 (14-36) U/L ALT 13 (6-35) U/L Alkaline Phosphatase 100 (38-126) U/L Total Protein 7.0 (6.3-8.2) g/dL Albumin 3.6 (3.5-5.1) g/dL Lipase 77 (23-300) U/L Discharge Plan Discharge Clinical Impression: SVT (supraventricular tachycardia), Acute hypokalemia, Hypomagnesemia Patient Disposition: Home, Self-Care Condition: Improved Instructions: Antibiotic Form, Supraventricular Tachycardia (ED) Patient Language: Belgian Prescriptions: No Action sumatriptan succinate 50 mg tablet 50 mg PO BID ferrous sulfate 325 mg (65 mg iron) tablet 325 mg PO DAILY Qty: 30 0RF Follow-up/Referrals: Cleveland Bass MD [Physician] - 3 Days UNKNOWN,DOCTOR [Primary Care Provider] - Time of Disposition: 03:23
[2024-09-11] MEDS: MAGNESIUM SULF 1 GM/D5W 100 ML 1 GM/100 ML BAG IVPB (03:23)
[2024-09-11] MEDS: POTASSIUM CHLORIDE 20 MEQ PACKET (FOR LIQUID) PO (03:24)
[2024-09-11 04:43] VITALS: BP 118/72; PULSE 76; RESP 15; O2SAT 100
--- OUTSIDE RECORDS SUMMARY | 2024-09-18 05:12 | XMS_ITS | Data Portability ---
Author Organization [facility] Address [address] [place] [address] [place] [address] Care Team Providers Care Orthodontic Technician Assistant Name Role Phone DWIGHT WILKINS Primary Care Provider Assessment No assessment recorded. Plan of Treatment Reminders Order Date Submit Date Provider Last Modified By Organization Details Last Modified Time Details Appointments None recorded. Lab iron + TIBC + ferritin, serum 2023 [facility] (Lab), [address], [place], [address], 11:33:26 Referral None recorded. Procedures None recorded. Surgeries None recorded. Imaging US, obstetric, 2nd or 3rd trimester 2023 024 [address], [address], [place], [address], 14:28:08 US, obstetric, follow-up [address]23 [email or web address], [address], [place], [address], 21:16:39 US, doppler, umbilical artery velocimetry [address]23 [email or web address], [address], [place], [address], 21:16:39 Medication Orders None recorded. Patient TargetsNo targets recorded. Patient InstructionsNo instructions recorded. Reason for Referral None Reported. Results Created Date Observation Date Name Description Value Unit Range Abnormal Flag Note LastModifiedBy Organization Detail LastModifiedTime 08/30/20 24 08/30/2024 HEMOG LOBIN (HGB) HGB 10.0 g/dL (based on docume nted legal sex) 11.6-1 5.4 low Not Available [facility] (Lab) [address] [place], [address], 08/31/2024 11:33:25 08/30/20 24 08/30/2024 HEMAT OCRIT (HCT) HCT 31.7 % (based on docume nted legal sex) 34.0-4 5.0 low Not Available [facility] (Lab) [address] [facility], [place], [address], 08/31/2024 11:33:25 08/30/20 24 08/30/2024 GTT - GESTA AUGUSTINEACE Matthews, ACOG OB glucose, 1 hour screen 90 mg/dL 70-135 Not Available [facility] (Lab) [address] [place], [address], 08/31/2024 11:33:25 08/30/20 24 08/30/2024 LIBIA TIN / IRON / TRANS LIBIA N / TIBC iron 45 ug/dL 40-170 Not Available [facility] (Lab) [address] [place], [address], 08/31/2024 11:33:26 08/30/20 24 08/30/2024 LIBIA TIN / IRON / TRANS LIBIA N / TIBC transferrin 394 mg/dL 200-36 0 high Not Available [facility] (Lab) [address] [place], [address], 08/31/2024 11:33:26 08/30/20 24 08/30/2024 LIBIA TIN / IRON / TRANS LIBIA N / TIBC ferritin 7.9 NG/mL 8.0-25 2.0 low Not Available [facility] (Lab) [address] [place], [address], 08/31/2024 11:33:26 08/30/20 24 08/30/2024 LIBIA TIN / IRON / TRANS LIBIA N / TIBC TIBC 552 ug/dL 250-45 0 high Not Available [facility] (Lab) [address] [facility], [place], [address], 08/31/2024 11:33:26 08/30/20 24 08/30/2024 LIBIA TIN / IRON / TRANS LIBIA N / TIBC iron saturation 8 % 20-55 low Not Available [facility] (Lab) [address] [facility], [place], [address], 08/31/2024 11:33:26 08/30/20 24 08/30/2024 HIV 1/2 ANTIG EN/AN TIBOD Y, REFLE X CONFI RMATI ON HIV antigen/anti body Nonrea ctive nonrea ctive HIV-1 antig en and HIV-1 /HIV- 2 antib odies were not detec roxane. No labor atory evide nce of HIV infec tion. Not Available [facility] (Lab) [address] [facility], [place], [address], 08/31/2024 11:33:26 08/30/20 24 08/30/2024 RPR SCREE N, REFLE X TITER /CONF IRMAT ION RPR screen Nonrea ctive nonrea ctive Not Available [facility] (Lab) [address] [facility], [place], [address], 08/31/2024 11:33:27 07/10/20 24 07/10/2024 US, obste tric, 2nd or 3rd trime ster No observ ation record ed. [facility] [address], [place], [address], 07/10/2024 18:08:14 07/10/20 24 07/10/2024 US, obste tric, follo w-up No observ ation record ed. [email or web address], [place], [address], 07/10/2024 14:30:51 08/09/20 24 08/09/2024 US, obste tric, follo w-up No observ ation record ed. [email or web address] [place] [address], [place], [address], 08/09/2024 18:07:39 08/09/20 24 08/09/2024 US, doppl er, umbil ical arter y veloc imetr y No observ ation record ed. [email or web address] [place] [address], [place], [address], 08/09/2024 18:07:49 08/09/20 24 08/09/2024 US, obste tric, follo w-up No observ ation record ed. [email or web address] [address], [place], [address], 08/10/2024 09:26:35 08/16/20 24 08/16/2024 US, obste tric, follo w-up No observ ation record ed. [address], [address], 08/21/2024 14:35:01 08/16/20 24 08/16/2024 US, obste tric, follo w-up No observ ation record ed. [email or web address] [address], [address], 08/21/2024 18:44:08 08/16/20 24 08/16/2024 US, obste tric, follo w-up No observ ation record ed. [address], [address], 08/21/2024 14:35:41 08/23/20 24 08/23/2024 US, obste tric, follo w-up No observ ation record ed. [email or web address] [facility] [address] [facility], [place], [address], 08/24/2024 12:17:03 08/30/20 24 08/30/2024 US, obste tric, follo w-up No observ ation record ed. [email or web address] [facility] [address], [place], [address], 09/07/2024 15:05:47 08/30/20 24 08/30/2024 US, obste tric, follo w-up No observ ation record ed. [email or web address] [facility] [address], [place], [address], 09/07/2024 14:59:51 Result Notes None recorded. Problems Name Problem SNOMED Code Status Onset Date Resolution Date Notes Provider Name and Address Organization Details Recorded Time Prediabete s 046987146 Active 2023 MARY CAMPBELL MD [address], [place], [address], [facility] 4 17:19:44 05871088 Active 2023 Cyndee Coleman [facility], [facility] 4 19:05:42 Herpes simplex 02137707 Active valtrex at 36wks Lulú Yo nieves, [facility] 4 14:38:56 Herpes simplex 49226396 Active valtrex at 36wks Lulú Ram lizbeth, [facility] 4 14:38:56 Past history of premature delivery 724156790 Active 36wks 3# Lulú Yo nieves, [facility] 4 14:41:25 Past history of premature delivery 727586633 Active 36wks 3# Lulú Yo nieves, [facility] 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 4 14:30:07 Placenta circumvall tereza 8132244 Active 32 week growth us Lulú Ram null, [facility] 4 14:30:07 Problem Notes None recorded. Procedures Surgical History Date Name Laterality Status Provider Name and Address Organization Details Recorded Time 02/22/20 24 SIS completed MARY CAMPBELL MD [address], [place], [address], [place] [facility] 02/22/2024 14:59:37 10/22/19 24 Dilation and Curettage completed Mary Anne Foley [facility] 04/11/2024 16:28:40 06/04/20 23 Date of Last Pap Smear completed Jennifer Gaspar [facility] 01/26/2024 09:35:03 06/20/20 20 arm destructive procedure completed Mary Anne Foley [facility] 04/11/2024 16:29:31 Imaging Results Imaging Date Name Status LastModified by Organiz ation Details LastModified Time 07/10/2024 US, obstetric, 2nd or 3rd trimester completed blanca Hoff [address], [place], [address], 07/10/2024 18:08:14 07/10/2024 US, obstetric, follow-up completed bailee [address], [place], [address], 07/10/2024 14:30:51 08/09/2024 US, obstetric, follow-up completed [email or web address] [place] [address] [address], [place], [address], 08/09/2024 18:07:39 08/09/2024 US, doppler, umbilical artery velocimetry completed melisa [place] [address], [place], [address], 08/09/2024 18:07:49 08/09/2024 US, obstetric, follow-up completed [email or web address], [place], [address], 08/10/2024 09:26:35 08/16/2024 US, obstetric, follow-up completed [address], [address], 08/21/2024 14:35:01 08/16/2024 US, obstetric, follow-up completed [address], [address], 08/21/2024 18:44:08 08/16/2024 US, obstetric, follow-up completed [address], [address], 08/21/2024 14:35:41 08/23/2024 US, obstetric, follow-up completed [address] [facility] [address] [place], [address], 08/24/2024 12:17:03 08/30/2024 US, obstetric, follow-up completed [facility] [address], [place], [address], 09/07/2024 15:05:47 08/30/2024 US, obstetric, follow-up completed [email or web address] [facility] [address] [place], [address], 09/07/2024 14:59:51 Procedure Notes None recorded. Medical Equipment None Reported. Allergies No known drug allergies Medications Name Sig Start Date Stop Date Status Note LastModified by Organization Details LastModified Time azithromyci n 250 mg tablet TAKE 2 TABLETS BY MOUTH FOR 1 DAY THEN TAKE 1 TABLET BY MOUTH DAILY FOR 4 DAYS 07/24 completed Not Available Not Available Not Available fluconazole 200 mg tablet TAKE 1 TABLET BY MOUTH EVERY OTHER DAY FOR 3 DOSES 08/31 completed Not Available Not Available Not Available meloxicam 15 mg tablet TAKE 1/2 TABLET BY MOUTH TWICE DAILY 08/31 completed Not Available Not Available Not Available prednisone 20 mg tablet 07/24 completed Not Available Not Available Not Available clonazepam 0.5 mg tablet TAKE 1 TABLET BY MOUTH EVERY 12 HOURS NEEDED 08/31 completed Not Available Not Available Not Available sumatriptan 50 mg tablet TAKE 1 TABLET BY MOUTH EVERY DAY NEEDED FOR TENSION TYPE HEADACHE 01/25 completed Not Available Not Available Not Available metronidazo le 500 mg tablet TAKE 1 TABLET BY MOUTH TWICE DAILY WITH MEALS FOR 7 DAYS 08/31 completed Not Available Not Available Not Available lidocaine HCl 2 % mucosal jelly APPLY TOPICALLY NEEDED FOR FOR PAIN OR DISCOMFOR T 08/31 completed Not Available Not Available Not Available acetaminoph en 500 mg tablet TAKE 2 TABLETS BY MOUTH EVERY 6 HOURS 08/31 completed Not Available Not Available Not Available famotidine 20 mg tablet Take 1 tablet twice a day by oral route for 30 days. active Not Available Not Available No t Available benzonatate 100 mg capsule TAKE 1 CAPSULE BY MOUTH EVERY 8 HOURS NEEDED 08/31 completed Not Available Not Available Not Available cephalexin 500 mg capsule 07/24 completed Not Available Not Available Not Available progesteron e micronized 200 mg capsule TAKE 1 CAPSULE BY MOUTH EVERY DAY 06/07 completed Not Available Not Available Not Available Valtrex 1 gram tablet Take 1 tablet every day by oral route with meals for 5 days. 06/04 completed Not Available Not Available Not Available gabapentin 300 mg capsule 08/31 completed Not Available Not Available Not Available Banophen 25 mg capsule TAKE ONE CAPSULE BY MOUTH EVERY 4 HOURS FOR HEADACHE 01/25 completed Not Available Not Available Not Available ibuprofen 600 mg tablet 08/31 completed Not Available Not Available Not Available ondansetron 4 mg disintegrat ing tablet TAKE 1 TABLET BY MOUTH EVERY 8 HOURS NEEDED FOR NAUSEA OR VOMITING 06/04 completed Not Available Not Available Not Available metformin ER 500 mg tablet,exte nded release 24 hr TAKE 1 TABLET BY MOUTH EVERY DAY active Not Available Not Available No t Available metoclopram bao 10 mg tablet TAKE 1 TABLET BY MOUTH FOUR TIMES DAILY FOR HEADACHE 01/25 completed Not Available Not Available Not Available hydroxyzine pamoate 25 mg capsule TAKE ONE CAPSULE BY MOUTH THREE TIMES DAILY 08/31 completed Not Available Not Available Not Available active Not Available Not Avai lable Not Available Vitamin 01/25 completed Not Available Not Available Not Available FeroSul 325 mg (65 mg iron) tablet TAKE 1 TABLET BY MOUTH EVERY DAY 01/25 completed Not Available Not Available Not Available Estarylla 0.25 mg-35 mcg tablet TAKE 1 TABLET BY MOUTH DAILY 08/31 completed Not Available Not Available Not Available Slynd 4 mg (28) tablet Take 1 tablet every day by oral route. 10/05 completed Not Available Not Available Not Available Vitals Date Recorded Body height Body mass index (BMI) Body weight Systolic blood pressure Diastolic blood pressure Provider Name and Address Organization Details Last Updated DateTime 07/10/2024 156.21 cm 31.8 kg/m2 08843.29 527 g 114 mm[Hg] 81 mm[Hg] [facility] 4 11:38:54 Date Recorded Body height Body mass index (BMI) Body weight Systolic blood pressure Diastolic blood pressure Provider Name and Address Organization Details Last Updated DateTime 08/09/2024 156.21 cm 32.3 kg/m2 53163.07 238 g 116 mm[Hg] 77 mm[Hg] [facility] 4 14:50:01 Date Recorded Body height Body mass index (BMI) Body weight Systolic blood pressure Diastolic blood pressure Provider Name and Address Organization Details Last Updated DateTime 08/30/2024 156.21 cm 32.5 kg/m2 99210.66 475 g 119 mm[Hg] 82 mm[Hg] [facility] 4 14:10:09 Social History Question Answer Notes LastModified by Organizat ion Details LastModified Time Tobacco Smoking Status Current Every Day Smoker Mary Anne Foley [facility], [facility] 04/11/2024 16:28:24 Do You Have An Advance Directive? No Information not available 07/24/2022 What Is Your Level Of Alcohol Consumption? None [email or web address] Information not available 04/11/2024 If You Are , What Was Your Level Of Alcohol Consumption Prior To ? Occasional [email or web address] Information not available 04/11/2024 How Many Years Have You Consumed Alcohol? 5 Information not available 07/24/2022 Are You Blind Or Do You Have Difficulty Seeing? No Information not available 07/24/2022 What Is Your Level Of Caffeine Consumption? Occasional Information not available 07/24/2022 How Much Tobacco Do You Chew? None Information not available 07/24/2022 In The 14 Days Before Symptom Onset, Have You Had Close Contact With A Laboratory-confir med COVID-19 While That Case Was Ill? No Information not available 07/24/2022 In The 14 Days Before Symptom Onset, Have You Had Close Contact With A Person Who Is Under Investigation For COVID-19 While That Person Was Ill? No Information not available 07/24/2022 Have You Been To An Area Known To Be High Risk For COVID-19? No Information not available 07/24/2022 Are You Deaf Or Do You Have Serious Difficulty Hearing? No Information not available 07/24/2022 What Type Of Diet Are You Following? REGULAR [email or web address] Information not available 08/31/2022 What Is The Highest Grade Or Level Of School You Have Completed Or The Highest Degree You Have Received? [id number] Information not available 07/24/2022 Are There Any Guns Present In Your Home? Yes Information not available 07/24/2022 Do You Use Protection During Sex? No Information not available 07/24/2022 Do You Use Your Seat Belt Or Car Seat Routinely? Yes Information not available 07/24/2022 Do You Have Smoke And Carbon Monoxide Detectors In Your Home? Yes Information not available 07/24/2022 At What Age Did You Start Smoking Tobacco? 21 Information not available 07/24/2022 How Much Tobacco Do You Smoke? No Information not available 07/24/2022 Do You Feel Stressed (tense, Restless, Nervous, Or Anxious, Or Unable To Sleep At Night)? [id number] Information not available 07/24/2022 Do You Use Any Illicit Or Recreational Drugs? No Information not available 07/24/2022 Do You Use Sunscreen Routinely? No Information not available 07/24/2022 How Many Years Have You Smoked Tobacco? 5 Information not available 07/24/2022 Have You Used IV Drugs? No Information not available 07/24/2022 Sex: Unknown Functional Status Question Answer Note LastModified by Organizat ion Details LastModified Time Do you have difficulty walking or climbing stairs? No [email or web address] Information not available 10/05/2023 Are you able to walk? [email or web address] Information not available 07/24/2022 Are you able to care for yourself? Yes [email or web address] Information not available 10/05/2023 Do you have difficulty dressing or bathing? No [email or web address] Information not available 10/05/2023 What is your exercise level? Occasional Information not available 07/24/2022 Mental Status None recorded. Family History Relationship Description Onset Age of this Age Resolved Age Notes LastModified by Organization Details LastModified Time Unspecified Relation Family history unknown Not available 2021 14:35:16 Medical History Condition Response Allergies (Food, seasonal, environmental ) N Other Y Blood Transfusion N Drug/Latex Allergies/Reactions N Breast Cancer N Dermatologic Disorders N Lung Disease N Defects or Inherited Disease N Breast Problem N Gestational Diabetes N Hematologic disorders N Anesthesia Complications N History of STI Y Deep Vein Thrombosis N Polycystic ovary syndrome N Anxiety Disorder Y Autoimmune disease N Arthritis N Infertility N Polyps N Acid Reflux (GERD) N History of abnormal pap N Cancer N Stroke N Varicosities N Neurologic/Epilepsy N Endometriosis N High Cholesterol N Headaches Y Fibromyalgia N Kidney Disease N Heart Problems N Kidney or Bladder Problems N Thyroid Problems N GI Problems N Eating Disorder N Anemia Y Art (IVF or FET) N Psychiatric Illness N Ovarian Cancer N Diabetes Y Pulmonary (TB, Asthma) N Hepatitis/Liver Disease N No Past Medical History Y Eczema N Urinary Tract Infection N Abuse/Domestic Violence N Asthma N Trauma/Violence N Depression/ depression N Heart Disease N Pre-Eclampsia N Hypertension N Osteoporosis N Thrombophilias N Gynecological History Statement/Question Response Abnormal Pap N Date of Last Mammogram Date of LMP 02/16/2024 On BCP's at Conception? N N Was last menstrual period normal Y STIs/STDs Y HPV Vaccine N Duration of Flow (days) 7 Current Control Method Are cycles usually normal Y Frequency of Cycle (Q days) 29 Sexually Active? Y Menses Monthly Y Date of DEXA bone scan Age of first menstrual cycle 10 Date of Last Pap Smear 06/04/2023 Sexual Problems? N LMP Approximate N Obstetrics History GPAL:G 6 P 1 0 4 1 Type Value Full Term 1 Spontaneous 2 Living 1 Ectopics 2 Total 6 Past Encounters Encounter ID Performer Location Encounter Start Date Encounter Closed Date Diagnosis/Indication Diagnosis SNOMED-CT Code Diagnosis ICD10 Code [id number] Karen Queen [facility] [address] [place] [address] 07/24/2022 14:19:51 07/24/2022 14:55:54 Sexually transmitted infectious disease 5444134 A64 Vaginitis 78100513 N76.0 [id number] Karen Queen [facility] [address] [place] [address] 08/31/2022 12:26:39 08/31/2022 13:01:57 Labial cyst 291533509 N90.7 [id number] MARY CAMPBELL MD [place] [address] [place] [address] 06/04/2023 15:59:50 06/07/2023 16:18:19 Gynecologic examination 54989352 Z01.419 Contracept ion care management 269228215 Z30.9 [id number] MARY CAMPBELL MD [place] [address] [place] [address] 07/05/2023 16:24:45 07/06/2023 08:55:12 Pain in pelvis 04224652 R10.2 [id number] Shavonne Downey [place] [address] [place] [address] 09/10/2023 16:26:51 09/12/2023 09:20:20 Past history of ectopic 849210684 Z87.59 Z3A.01 [id number] [facility] [address] [address] 09/21/2023 16:58:04 09/22/2023 09:47:42 Past history of ectopic 053032979 Z87.59 Z3A.01 [id number] MARY CAMPBELL MD [place] [address] [address] 10/05/2023 15:35:25 10/12/2023 08:56:05 Missed miscarriage 46261547 O02.1 Z3A.01 [id number] [facility] [address] [address] 10/05/2023 15:36:12 10/05/2023 16:16:08 Missed miscarriage 21691103 O02.1 Z3A.01 [id number] MARY CAMPBELL MD [place] [address] [address] 01/26/2024 09:28:55 01/27/2024 03:54:53 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 [id number] MARY CAMPBELL MD [place] [address] [address] 02/22/2024 13:56:25 02/22/2024 15:09:28 Recurrent miscarriage 154527101 N96 [id number] [facility] [address] [address] 02/22/2024 13:56:49 02/22/2024 14:57:12 Recurrent miscarriage 347224912 N96 [id number] [facility] [address] [address] 03/24/2024 12:26:47 03/24/2024 13:32:00 History of poor outcome 8600809645 14589 Z87.59 Z3A.01 [id number] [facility] [address] [address] 04/11/2024 15:24:38 04/11/2024 16:03:18 [id number] MARY ACMPBELL MD [place] [address] [address] 04/11/2024 15:25:02 04/11/2024 17:19:15 Amenorrhea 66475673 N91.2 Z32.01 Venereal d isease screening 382137827 Z11.3 screening 2437 18163 Z36.0 Genetic in vestigation procedure 30262101 Z31.430 [id number] Emily Tran [place] [address] [address] 05/09/2024 14:29:23 05/09/2024 15:19:46 screening 153258333 Z36.82 Z3A.11 [id number] MARY CAMPBELL MD [place] [address] [address] 05/09/2024 14:29:45 05/10/2024 09:35:04 Routine care 279131987 Z34.90 Prediabetes 697424894 R7 3.03 Gestation period, 11 weeks 39741913 Z3A.11 [id number] Shakila Maria [facility] [address] [address] 05/17/2024 15:33:20 05/18/2024 09:03:43 [id number] Z33.1 [id number] MARY CAMPBELL MD [place] [address] [address] 06/07/2024 16:27:21 06/07/2024 17:09:26 Routine care 876047778 Z34.90 [id number] [facility] [address] [address] 07/10/2024 10:34:36 07/10/2024 11:41:39 screening for malformation 877839079 Z36.3 Z3A.20 [id number] MARY CAMPBELL MD [place] [address] [address] 07/10/2024 10:34:58 07/10/2024 12:34:00 Placenta circumvallata 9389200 O43.119 Gestation period, 20 weeks 63173324 Z3A.20 [id number] Emily Tran [place] [address] [address] 08/09/2024 14:03:15 08/09/2024 14:50:15 screening 929370021 Z36.2 O43.112 Z3A.25 [id number] MARY CAMPBELL MD [place] [address] [address] 08/09/2024 14:03:37 08/09/2024 15:28:03 growth restriction 05683178 O36.5999 Past pregn karan history of premature delivery 130475347 Z87.51 Placenta circumvallata 5174744 O43.119 Gestation period, 25 weeks 56945926 Z3A.25 [id number] MARY CAMPBELL MD [place] [address],[facility] [address] 08/30/2024 14:01:59 08/30/2024 14:38:08 Gestation period, 28 weeks 91971864 Z3A.28 Past pregn karan history of premature delivery 455250035 Z87.51 Placenta circumvallata 1470540 O43.119 Health Concerns Section Related Observation LastModified by Organization Detai ls LastModified Time None Recorded Concern Status LastModified by Organization Details LastModified Time None Recorded Advance Directives Directive N: Payers Encounter Date Sequence Insurance Name Policy Number Policy Barba Covered Member ID Barba Member ID Guarantor Name 07/10/2024 1 [facility] ON OR AFTER 03/20/21 (MEDICAID REPLACEMENT - HMO) Marnie Jones [id number] Marnie Jones 07/10/2024 1 [facility] ON OR AFTER 03/20/21 (MEDICAID REPLACEMENT - HMO) Marnie Jones [id number] Marnie Jones 08/09/2024 1 [facility] ON OR AFTER 03/20/21 (MEDICAID REPLACEMENT - HMO) Marnie Jones [id number] Marnie Jones 08/09/2024 1 [facility] ON OR AFTER 03/20/21 (MEDICAID REPLACEMENT - HMO) Marnie Jones [id number] Marnie Jones 08/30/2024 1 [facility] - DOS ON OR AFTER 21 (MEDICAID REPLACEMENT - HMO) Marnie Jones [id number] Marnie Jones OBGyn Episode Ob Episode Information Episode Created Date Number of Fetuses Patient Bloodtype Patient rh Status Prepregnancy Weight lbs Domestic Partner Domestic Partner Phone Father Name Hospital Account Liaison Status 07/24/20 22 1 CLOSED Fetus Data First Name Last Name Admitted to NICU Weight (g) Sex Living Outcome Pediatric Complications Fetus ID Race Codes Race Delivery Type 1360.77 6 F Prematur e [id number] Vaginal Delivery Willie Calculation WILLIE Calculation Method Initial Willie Date Initial Exam Date Initial Exam Provider Initial Ultrasound Date Last Menstrual Period Date Ultra Sound Weeks Gestation Conception by IVF Embryo Age at Transfer Date of Transfer 0 Eighteen To Twenty Week Wilile Update Ultra Sound Date Fundal Height At Umbil Quickening Date Ultra Sound Latest Weeks Gestation Final Willie Confirmed By Final Willie Confirmed Date Final Willie Date Ultra Sound Latest Days Gestation 0 0 Menstrual History Last Menstrual Date Menses Monthly On Bcp Conception Prior Menses Frequency Hcg Plus Date Menarche Onset Age Delivery Information Delivery Date Delivery Type Labor Anesthesia Weeks Gestation Incision Type Labor Labor Length Hrs Delivered By Post Complications Tubal Sterilization Discharge Date Comments 7 36 Discharge Information Feeding Method Contraceptive Method Maternal HG B and HCT Levels Ob Episode Information Episode Created Date Number of Fetuses Patient Bloodtype Patient rh Status Prepregnancy Weight lbs Domestic Partner Domestic Partner Phone Father Name Hospital Account Liaison Status 01/26/20 24 1 CLOSED Fetus Data First Name Last Name Admitted to NICU Weight (g) Sex Living Outcome Pediatric Complications Fetus ID Race Codes Race Delivery Type , Spontane ous [id number] Willie Calculation WILLIE Calculation Method Initial Willie Date Initial Exam Date Initial Exam Provider Initial Ultrasound Date Last Menstrual Period Date Ultra Sound Weeks Gestation Conception by IVF Embryo Age at Transfer Date of Transfer 0 Eighteen To Twenty Week Willie Update Ultra Sound Date Fundal Height At Umbil Quickening Date Ultra Sound Latest Weeks Gestation Final Willie Confirmed By Final Willie Confirmed Date Final Willie Date Ultra Sound Latest Days Gestation 0 0 Menstrual History Last Menstrual Date Menses Monthly On Bcp Conception Prior Menses Frequency Hcg Plus Date Menarche Onset Age Delivery Information Delivery Date Delivery Type Labor Anesthesia Weeks Gestation Incision Type Labor Labor Length Hrs Delivered By Post Complications Tubal Sterilization Discharge Date Comments 1 4 Discharge Information Feeding Method Contraceptive Method Maternal HG B and HCT Levels Ob Episode Information Episode Created Date Number of Fetuses Patient Bloodtype Patient rh Status Prepregnancy Weight lbs Domestic Partner Domestic Partner Phone Father Name Hospital Account Liaison Status 05/09/20 24 1 A Positive OPEN Fetus Data First Name Last Name Admitted to NICU Weight (g) Sex Living Outcome Pediatric Complications Fetus ID Race Codes Race Delivery Type [id number] Problems Problem Notes -AC 9% S/D Ratio midly eleva roxane for GA - MFM referral faxed to [facility] 08/09 - pt request to see [facility] referral sent 08/23 & 08/30 US & OV 1030 09/19 0815 NST & US Problem Name Start Date End Date Resolution Snomed Code Not e Placenta circumvallata 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 32 week growth us Past history of premature delivery 091255028 36wks 3# Herpes simplex 17115614 valtr ex at 36wks Willie Calculation WILLIE Calculation Method Initial Willie Date Initial Exam Date Initial Exam Provider Initial Ultrasound Date Last Menstrual Period Date Ultra Sound Weeks Gestation Conception by IVF Embryo Age at Transfer Date of Transfer 11/23/19 25 05/09/20 24 04/11/2024 02/16/2024 7 Eighteen To Twenty Week Willie Update Ultra Sound Date Fundal Height At Umbil Quickening Date Ultra Sound Latest Weeks Gestation Final Willie Confirmed By Final Willie Confirmed Date Final Willie Date Ultra Sound Latest Days Gestation 0 [email or web address] 05/09/2024 11/23/19 25 0 Pre-rosa Flowsheet Flowsheet Date 05/09/2024 Zamora Score Blood Edema Fundus Height Fundus Units Glucose Ketones Leukocytes Nitrite Labor Signs Protein Cervic Dilation Cervic Effacement Cervic Station Type Weight in lbs Pre/Post Dialysis Refused Weight 174.437996981676 BP Diastolic BP Location Tested BP Systolic BP Type 80 127 Fetus Heart Rate Present A 160 Fetus Movement A Yes Comments Patient presents to [facility] care. Doing well, nausea minimal. No cramping or bleeding. Feeling baby move already. NT/NB wnl today. Low risk NIPT, finding gender out soon! Other OB labs wnl. Discussed routine care. RTC 4 weeks. Flowsheet Date 05/17/2024 Zamora Score Blood Edema Fundus Height Fundus Units Glucose Ketones Leukocytes Nitrite Labor Signs Protein Cervic Dilation Cervic Effacement Cervic Station Type Weight in lbs Pre/Post Dialysis Refused BP Diastolic BP Location Tested BP Systolic BP Type 82 116 Fetus Heart Rate Present Fetus Movement Comments Pt here to doppler hea rt tones due to decreased movement. Pt informed irregular movement is normal at 13 weeks gestation but pt reports regular, normal movement and is concerned. heart tones could not be found with doppler due to position. heart tones 155 with U/S and movement noted. Pt reassured. Shakila Heck RN Flowsheet Date 06/07/2024 Zamora Score Blood Edema Fundus Height Fundus Units Glucose Ketones Leukocytes Nitrite Labor Signs Protein Cervic Dilation Cervic Effacement Cervic Station neg 16 cm none trace Type Weight in lbs Pre/Post Dialysis Refused 168.231843972322 BP Diastolic BP Location Tested BP Systolic BP Type 75 L arm 113 sitting Fetus Heart Rate Present A 150 Fetus Movement A No Comments Patient has been experiencin g lower abdomen pain and cramping, tightens up. No bleeding. No nausea. Some fatigue. Discussed anatomy US for next visit. RTC 4 weeks. Flowsheet Date 07/10/2024 Zamora Score Blood Edema Fundus Height Fundus Units Glucose Ketones Leukocytes Nitrite Labor Signs Protein Cervic Dilation Cervic Effacement Cervic Station Type Weight in lbs Pre/Post Dialysis Refused BP Diastolic BP Location Tested BP Systolic BP Type Fetus Heart Rate Present Fetus Movement Comments Flowsheet Date 07/10/2024 Zamora Score Blood Edema Fundus Height Fundus Units Glucose Ketones Leukocytes Nitrite Labor Signs Protein Cervic Dilation Cervic Effacement Cervic Station none Type Weight in lbs Pre/Post Dialysis Refused 171.184488495631 BP Diastolic BP Location Tested BP Systolic BP Type 81 L arm 114 sitting Fetus Heart Rate Present A 138 Fetus Movement A Yes Comments Doing well, good movem ent. No heavy cramping or bleeding. Anatomy US today, EFW 36%, need RVOT and ductal arch views. Repeat in 4 weeks. Circumvallate placenta, repeat growth at 32 weeks. RTC 4 weeks. Flowsheet Date 08/09/2024 Zamora Score Blood Edema Fundus Height Fundus Units Glucose Ketones Leukocytes Nitrite Labor Signs Protein Cervic Dilation Cervic Effacement Cervic Station Type Weight in lbs Pre/Post Dialysis Refused BP Diastolic BP Location Tested BP Systolic BP Type Fetus Heart Rate Present Fetus Movement Comments Flowsheet Date 08/09/2024 Zamora Score Blood Edema Fundus Height Fundus Units Glucose Ketones Leukocytes Nitrite Labor Signs Protein Cervic Dilation Cervic Effacement Cervic Station neg none none neg Type Weight in lbs Pre/Post Dialysis Refused 174.58906143969 BP Diastolic BP Location Tested BP Systolic BP Type 77 L arm 116 sitting Fetus Heart Rate Present A Present Fetus Movement A Yes Comments Patient c/o heartburn, will try tums and pepcid. Anatomy complete and normal today, however AC 9% with mildly elevated SD ratio on UADs. Will send MFM referral for further evaluation. Otherwise, doing well. RTC 3 weeks for GCT and labs. Flowsheet Date 08/30/2024 Zamora Score Blood Edema Fundus Height Fundus Units Glucose Ketones Leukocytes Nitrite Labor Signs Protein Cervic Dilation Cervic Effacement Cervic Station neg none Type Weight in lbs Pre/Post Dialysis Refused 175.076245255199 BP Diastolic BP Location Tested BP Systolic BP Type 82 L arm 119 sitting Fetus Heart Rate Present A Present Fetus Movement A Yes Comments Doing well, good movem ent. No cramping or bleeding. US wnl at [facility] today, AC and EFW 16%. UADs slightly elevated, repeat scan scheduled for 2 weeks. GCT and labs today, added ferritin and Fe panel as well. Discussed tdap vaccine. RTC 2 weeks. Menstrual History Last Menstrual Date Menses Monthly On Bcp Conception Prior Menses Frequency Hcg Plus Date Menarche Onset Age 0502/16/2024 Delivery Information Delivery Date Delivery Type Labor Anesthesia Weeks Gestation Incision Type Labor Labor Length Hrs Delivered By Post Complications Tubal Sterilization Discharge Date Comments Discharge Information Feeding Method Contraceptive Method Maternal HG B and HCT Levels Ob Episode Information Episode Created Date Number of Fetuses Patient Bloodtype Patient rh Status Prepregnancy Weight lbs Domestic Partner Domestic Partner Phone Father Name Hospital Account Liaison Status 01/26/20 24 1 CLOSED Fetus Data First Name Last Name Admitted to NICU Weight (g) Sex Living Outcome Pediatric Complications Fetus ID Race Codes Race Delivery Type , Spontane ous [id number] Willie Calculation WILLIE Calculation Method Initial Willie Date Initial Exam Date Initial Exam Provider Initial Ultrasound Date Last Menstrual Period Date Ultra Sound Weeks Gestation Conception by IVF Embryo Age at Transfer Date of Transfer 0 Eighteen To Twenty Week Willie Update Ultra Sound Date Fundal Height At Umbil Quickening Date Ultra Sound Latest Weeks Gestation Final Willie Confirmed By Final Willie Confirmed Date Final Willie Date Ultra Sound Latest Days Gestation 0 0 Menstrual History Last Menstrual Date Menses Monthly On Bcp Conception Prior Menses Frequency Hcg Plus Date Menarche Onset Age Delivery Information Delivery Date Delivery Type Labor Anesthesia Weeks Gestation Incision Type Labor Labor Length Hrs Delivered By Post Complications Tubal Sterilization Discharge Date Comments 4 Discharge Information Feeding Method Contraceptive Method Maternal HG B and HCT Levels Ob Episode Information Episode Created Date Number of Fetuses Patient Bloodtype Patient rh Status Prepregnancy Weight lbs Domestic Partner Domestic Partner Phone Father Name Hospital Account Liaison Status 10/05/19 24 1 CLOSED Fetus Data First Name Last Name Admitted to NICU Weight (g) Sex Living Outcome Pediatric Complications Fetus ID Race Codes Race Delivery Type Ectopic [id number] Willie Calculation WILLIE Calculation Method Initial Willie Date Initial Exam Date Initial Exam Provider Initial Ultrasound Date Last Menstrual Period Date Ultra Sound Weeks Gestation Conception by IVF Embryo Age at Transfer Date of Transfer 0 Eighteen To Twenty Week Willie Update Ultra Sound Date Fundal Height At Umbil Quickening Date Ultra Sound Latest Weeks Gestation Final Willie Confirmed By Final Willie Confirmed Date Final Willie Date Ultra Sound Latest Days Gestation 0 0 Menstrual History Last Menstrual Date Menses Monthly On Bcp Conception Prior Menses Frequency Hcg Plus Date Menarche Onset Age Delivery Information Delivery Date Delivery Type Labor Anesthesia Weeks Gestation Incision Type Labor Labor Length Hrs Delivered By Post Complications Tubal Sterilization Discharge Date Comments 3 Discharge Information Feeding Method Contraceptive Method Maternal HG B and HCT Levels Ob Episode Information Episode Created Date Number of Fetuses Patient Bloodtype Patient rh Status Prepregnancy Weight lbs Domestic Partner Domestic Partner Phone Father Name Hospital Account Liaison Status 10/05/19 24 1 CLOSED Fetus Data First Name Last Name Admitted to NICU Weight (g) Sex Living Outcome Pediatric Complications Fetus ID Race Codes Race Delivery Type Ectopic [id number] Willie Calculation WILLIE Calculation Method Initial Willie Date Initial Exam Date Initial Exam Provider Initial Ultrasound Date Last Menstrual Period Date Ultra Sound Weeks Gestation Conception by IVF Embryo Age at Transfer Date of Transfer 0 Eighteen To Twenty Week Willie Update Ultra Sound Date Fundal Height At Umbil Quickening Date Ultra Sound Latest Weeks Gestation Final Willie Confirmed By Final Willie Confirmed Date Final Willie Date Ultra Sound Latest Days Gestation 0 0 Menstrual History Last Menstrual Date Menses Monthly On Bcp Conception Prior Menses Frequency Hcg Plus Date Menarche Onset Age Delivery Information Delivery Date Delivery Type Labor Anesthesia Weeks Gestation Incision Type Labor Labor Length Hrs Delivered By Post Complications Tubal Sterilization Discharge Date Comments 2 Discharge Information Feeding Method Contraceptive Method Maternal HG B and HCT Levels
--- OUTSIDE RECORDS SUMMARY | 2024-09-18 05:13 | XMS_ITS | Continuity of Care Document ---
Author Organization [facility] Address [address] [place] [address] Care Team Providers Care Supervisor Travel Information Center Name Role Phone DWIGHT WILKINS Primary Care Provider Assessment No assessment recorded. Plan of Treatment Reminders Order Date Submit Date Provider Last Modified By Organization Details Last Modified Time Details Appointments None record ed. Lab None record ed. Referral None record ed. Procedures None record ed. Surgeries None record ed. Imaging None record ed. Medication Orders None record ed. Patient TargetsNo targets recorded. Patient InstructionsNo instructions recorded. Reason for Referral None Reported. Results Created Date Observation Date Name Description Value Unit Range Abnormal Flag Note LastModifiedBy Organization Detail LastModifiedTime 05/09/20 24 05/09/2024 US, obste tric, nucha l trans lucen cy No observ ation record ed. [email or web address] [place] [address], [place], [address], 05/09/2024 17:41:51 05/09/20 24 05/09/2024 US, obste tric, follo w-up No observ ation record ed. [email or web address] [place] [address], [place], [address], 05/10/2024 15:33:26 07/10/20 24 07/10/2024 US, obste tric, 2nd or 3rd trime ster No observ ation record ed. [email or web address] [address], [place], [address], 07/10/2024 18:08:14 07/10/20 24 07/10/2024 US, obste tric, follo w-up No observ ation record ed. [email or web address] [address] [address], [place], [address], 07/10/2024 14:30:51 08/09/20 24 08/09/2024 US, obste tric, follo w-up No observ ation record ed. [email or web address] [place] [address], [place], [address], 08/09/2024 18:07:39 08/09/20 24 08/09/2024 US, doppl er, umbil ical arter y veloc imetr y No observ ation record ed. [email or web address] [place] [address], [place], [address], 08/09/2024 18:07:49 08/09/20 24 08/09/2024 US, obste tric, follo w-up No observ ation record ed. [email or web address] [address] [address], [place], [address], 08/10/2024 09:26:35 08/16/20 24 08/16/2024 US, obste tric, follo w-up No observ ation record ed. [address], [address], 08/21/2024 14:35:01 08/16/20 24 08/16/2024 US, obste tric, follo w-up No observ ation record ed. [email or web address], [address], 08/21/2024 18:44:08 08/16/20 24 08/16/2024 US, obste tric, follo w-up No observ ation record ed. [address] [place], [address], 08/21/2024 14:35:41 08/23/20 24 08/23/2024 US, obste tric, follo w-up No observ ation record ed. [email or web address] [facility] [address], [place], [address], 08/24/2024 12:17:03 08/30/20 24 08/30/2024 US, obste tric, follo w-up No observ ation record ed. [email or web address] [facility] [address], [place], [address], 09/07/2024 15:05:47 08/30/20 24 08/30/2024 US, obste tric, follo w-up No observ ation record ed. [email or web address] [facility] [address], [place], [address], 09/07/2024 14:59:51 Result Notes None recorded. Problems Name Problem SNOMED Code Status Onset Date Resolution Date Notes Provider Name and Address Organization Details Recorded Time Prediabete s 761736886 Active 2023 MARY CAMPBELL MD [address], [place], [address], [facility] 4 17:19:44 72314234 Active 2023 Cyndee Coleman [facility], [facility] 4 19:05:42 Herpes simplex 92464844 Active valtrex at 36wks Lulú Yo [facility], [facility] 4 14:38:56 Herpes simplex 50957093 Active valtrex at 36wks Lulú Yo nieves, [facility] 4 14:38:56 Past history of premature delivery 992884924 Active 36wks 3# Lulú Yo nieves, [facility] 4 14:41:25 Past history of premature delivery 893464793 Active 36wks 3# Lulú Ram null, [facility] 4 14:41:25 Placenta circumvall tereza 0389339 Active 32 week growth Lulú nieves, [facility] 4 14:30:07 Placenta circumvall tereza 5629556 Active 32 week growth Lulú nieves, [facility] 4 14:30:07 Problem Notes None recorded. Procedures Surgical History Date Name Laterality Status Provider Name and Address Organization Details Recorded Time 02/22/20 24 SIS completed MARY CAMPBELL MD [address], [place], [address], [facility] 02/22/2024 14:59:37 10/22/19 24 Dilation and Curettage completed Mary Anne Foley [facility] 04/11/2024 16:28:40 06/04/20 23 Date of Last Pap Smear completed Jennifer Gaspar [facility] 01/26/2024 09:35:03 06/20/20 20 arm destructive procedure completed Mary Annejasmin Foley [facility] 04/11/2024 16:29:31 Imaging Results None recorded. Procedure Notes None recorded. Medical Equipment None [...] Updated DateTime 08/09/2024 156.21 cm 32.3 kg/m2 02725.07 238 g 116 mm[Hg] 77 mm[Hg] Jennifer Gaspar [facility] 14:50:01 Social History Question Answer Notes LastModified by Organizat ion Details LastModified Time Tobacco Smoking Status Current Every Day Smoker Mary Anne nieves, [facility] 04/11/2024 16:28:24 Do You Have An Advance Directive? No Information not available 07/24/2022 What Is Your Level Of Alcohol Consumption? None [email or web address] Information not available 04/11/2024 If You Are , What Was Your Level Of Alcohol Consumption Prior To ? Occasional Information not available 04/11/2024 How Many Years [...] Or The Highest Degree You Have Received? [id number] Information not available 07/24/2022 Are There Any [...] Anxious, Or Unable To Sleep At Night)? [id number] Information not available 07/24/2022 Do You Use [...] have difficulty walking or climbing stairs? No [email or web address] Information not available 10/05/2023 Are you able to walk? [email or web address] Information not available 07/24/2022 Are you able to care for yourself? Yes [email or web address] Information not available 10/05/2023 Do you have difficulty dressing or bathing? No [email or web address] Information not available 10/05/2023 What is your exercise level? Occasional Information not available 07/24/2022 Mental Status None recorded. Family History Relationship Description Onset Age of this Age Resolved Age Notes LastModified by Organization Details LastModified Time Unspecified Relation Family history unknown Not available 2021 14:35:16 Medical History Condition Response Allergies (Food, seasonal, environmental ) N Other Y Breast Cancer N Drug/Latex Allergies/Reactions N Blood Transfusion N Dermatologic Disorders N Lung Disease N [...] Diagnosis/Indication Diagnosis SNOMED-CT Code Diagnosis ICD10 Code [id number] Shavonne Downey [place] [address] [address] 07/10/2024 10:34:36 07/10/2024 11:41:39 screening for malformation 650878488 Z36.3 Z3A.20 [id number] MARY CAMPBELL MD [place] [address] [address] 07/10/2024 10:34:58 07/10/2024 12:34:00 Placenta circumvallata 3511886 O43.119 Gestation period, 20 weeks 72237391 Z3A.20 [id number] Emily Tran [place] [address] [address] 08/09/2024 14:03:15 08/09/2024 14:50:15 screening 650109847 Z36.2 O43.112 Z3A.25 [id number] MARY CAMPBELL MD [place] [address] [address] 08/09/2024 14:03:37 08/09/2024 15:28:03 growth restriction 40639180 O36.5999 Past pregn karan history of premature delivery 426632075 Z87.51 Placenta circumvallata 9410405 O43.119 Gestation period, 25 weeks 50859105 Z3A.25 Health Concerns Section Related Observation LastModified by Organization Detai ls LastModified Time None Recorded Concern Status LastModified by Organization Details LastModified Time None Recorded Payers Encounter Date Sequence Insurance Name Policy Number Policy Barba Covered Member ID Barba Member ID Guarantor Name 08/09/2024 1 [facility] ON OR AFTER 03/20/21 (MEDICAID REPLACEMENT - HMO) Marnie Jones [id number] Marnie Jones OBGyn Episode Ob Episode Information Episode Created Date Number of Fetuses Patient Bloodtype Patient rh Status Prepregnancy Weight lbs Domestic Partner Domestic Partner Phone Father Name Clutch Rebuilder Status 05/09/20 24 1 A Positive OPEN Fetus Data First Name Last Name Admitted to NICU Weight (g) Sex Living Outcome Pediatric Complications Fetus ID Race Codes Race Delivery Type [id number] Problems Problem Notes -AC 9% S/D Ratio midly eleva roxane for GA - MFM referral faxed to [facility] 08/09 - pt request to see [facility] referral sent 08/23 & 08/30 US & OV 1030 09/19 0815 NST & US Problem Name Start Date End Date Resolution Snomed Code Not e Placenta circumvallata 5527473 32 week growth us Past history of premature delivery 421067836 36wks 3# Herpes simplex 55113996 valtr ex at 36wks Willie Calculation WILLIE [...] Weight in lbs Pre/Post Dialysis Refused Weight 174.899664079163 BP Diastolic BP Location Tested BP Systolic BP Type 80 127 Fetus Heart Rate Present A 160 Fetus Movement A Yes Comments Patient presents to [facility] care. Doing well, nausea minimal. [...] Type Weight in lbs Pre/Post Dialysis Refused 168.835490197667 BP Diastolic BP Location Tested BP Systolic [...] Type Weight in lbs Pre/Post Dialysis Refused 171.275534146059 BP Diastolic BP Location Tested BP Systolic [...] Type Weight in lbs Pre/Post Dialysis Refused 174.45806331541 BP Diastolic BP Location Tested BP Systolic BP Type 77 L arm 116 sitting Fetus Heart Rate Present A Present Fetus Movement A Yes Comments Patient c/o heartburn, will try tums and pepcid. Anatomy complete and normal today, however AC 9% with mildly elevated SD ratio on UADs. Will send M referral for further evaluation. Otherwise, doing well. RTC 3 weeks for GCT and labs. Flowsheet Date 08/30/2024 Zamora Score Blood Edema Fundus Height Fundus Units Glucose Ketones Leukocytes Nitrite Labor Signs Protein Cervic Dilation Cervic Effacement Cervic Station neg none Type Weight in lbs Pre/Post Dialysis Refused 175.964568504427 BP Diastolic BP Location Tested BP Systolic [...]
--- OUTSIDE RECORDS SUMMARY | 2024-09-18 05:13 | XMS_ITS | Continuity of Care Document ---
Author Organization [facility] Address [address] [place] [address] Care Team Providers Care Food Service Steward Name Role Phone DWIGHT WILKINS Primary Care Provider Assessment No assessment recorded. Plan of Treatment Reminders Order Date Submit Date Provider Last Modified By Organization Details Last Modified Time Details Appointments None recorde d. Lab iron + TIBC + ferriti n, serum 024 08/30/20 24 [facility] (Lab), [address], [place], [address], 11:33:26 Referral None recorde d. Procedures None recorde d. Surgeries None recorde d. Imaging None recorde d. Medication Orders None recorde d. Patient TargetsNo targets recorded. Patient InstructionsNo instructions recorded. Reason for Referral None Reported. Results Created Date Observation Date Name Description Value Unit Range Abnormal Flag Note LastModifiedBy Organization Detail LastModifiedTime 05/09/20 24 05/09/2024 US, obste tric, nucha l trans lucen cy No observ ation record ed. [email or web address] [place] [address], [place], [address], 05/09/2024 17:41:51 05/09/2005/09/2024 US, obste tric, follo w-up No observ ation record ed. [email or web address] [address], [place], [address], 05/10/2024 15:33:26 07/10/20 24 07/10/2024 US, obste tric, 2nd or 3rd trime ster No observ ation record ed. [email or web address] [place] [address], [place], [address], 07/10/2024 18:08:14 07/10/20 24 07/10/2024 US, obste tric, follo w-up No observ ation record ed. [email or web address] [address], [place], [address], 07/10/2024 14:30:51 08/09/20 24 08/09/2024 US, obste tric, follo w-up No observ ation record ed. [email or web address] [place] [address], [place], [address], 08/09/2024 18:07:39 08/09/20 24 08/09/2024 US, doppl er, umbil ical arter y veloc imetr y No observ ation record ed. [email or web address] [place] [address], [place], [address], 08/09/2024 18:07:49 08/09/20 24 08/09/2024 US, obste tric, follo w-up No observ ation record ed. [email or web address] [address], [place], [address], 08/10/2024 09:26:35 08/16/20 24 08/16/2024 US, obste tric, follo w-up No observ ation record ed. [email or web address] [place], [address], 08/21/2024 14:35:01 08/16/20 24 08/16/2024 US, obste tric, follo w-up No observ ation record ed. [email or web address] [address] [place], [address], 08/21/2024 18:44:08 08/16/20 24 08/16/2024 US, obste tric, follo w-up No observ ation record ed. [address] [facility], [place], [address], 08/21/2024 14:35:41 08/23/20 24 08/23/2024 US, obste tric, follo w-up No observ ation record ed. [address] [facility] [address] [facility], [place], [address], 08/24/2024 12:17:03 08/30/20 24 08/30/2024 US, obste tric, follo w-up No observ ation record ed. [email or web address] [facility] [address], [place], [address], 09/07/2024 15:05:47 08/30/20 24 08/30/2024 US, obste tric, follo w-up No observ ation record ed. [email or web address] [facility] [address] [place], [address], 09/07/2024 14:59:51 Result Notes None recorded. Problems Name Problem SNOMED Code Status Onset Date Resolution Date Notes Provider Name and Address Organization Details Recorded Time Prediabete s 258464284 Active 2023 MARY CAMPBELL MD [address], [place], [address], [facility] 4 17:19:44 83714715 Active 2023 Cyndee nieves, [facility] 4 19:05:42 Herpes simplex 26770727 Active valtrex at 36wks Lulú Ram [facility], [facility] 14:38:56 Herpes simplex 93616791 Active valtrex at 36wks Lulú nieves, [facility] 4 14:38:56 Past history of premature delivery 940534509 Active 36wks 3Katelin nieves, [facility] 4 14:41:25 Past history of premature delivery 602204325 Active 36wks 3# Lulú nieves, [facility] 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 4 14:30:07 Placenta circumvall tereza 8526356 Active 32 week growth Lulú nieves, [facility] 4 14:30:07 Problem Notes None recorded. Procedures Surgical History Date Name Laterality Status Provider Name and Address Organization Details Recorded Time 02/22/20 24 SIS completed MARY CAMPBELL MD [address], [place], [address], [facility] 02/22/2024 14:59:37 10/22/19 24 Dilation and Curettage completed Mary Anne Foley [facility] 04/11/2024 16:28:40 06/04/20 23 Date of Last Pap Smear completed Jennifer Gaspar [facility] 01/26/2024 09:35:03 06/20/20 20 arm destructive procedure completed Mary Annejasmin Foley [facility] 04/11/2024 16:29:31 Imaging Results None [...] Updated DateTime 08/30/2024 156.21 cm 32.5 kg/m2 38588.66 475 g 119 mm[Hg] 82 mm[Hg] Jennifer Gaspar [facility] 14:10:09 Social History Question Answer Notes LastModified by Organizat ion Details LastModified Time Tobacco Smoking Status Current Every Day Smoker Mary Anne nieves, [facility] 04/11/2024 16:28:24 Do You Have An Advance Directive? No Information not available 07/24/2022 What Is Your Level Of Alcohol Consumption? None [email or web address] Information not available 04/11/2024 If You Are , What Was Your Level Of Alcohol Consumption Prior To ? Occasional [email or web address] Information not available 04/11/2024 How Many Years [...] You Had Close [facility] While [facility] Was Ill? No Information [...] Or The Highest Degree You Have Received? [id number] Information not available 07/24/2022 Are There Any [...] Anxious, Or Unable To Sleep At Night)? [id number] Information not available 07/24/2022 Do You Use [...] have difficulty walking or climbing stairs? No [email or web address] Information not available 10/05/2023 Are you able to walk? YESWOREST Information not available 07/24/2022 Are you able to care for yourself? Yes [email or web address] Information not available 10/05/2023 Do you have difficulty dressing or bathing? No [email or web address] Information not available 10/05/2023 What is your exercise level? Occasional Information not available 07/24/2022 Mental Status None recorded. Family History Relationship Description Onset Age of this Age Resolved Age Notes LastModified by Organization Details LastModified Time Unspecified Relation Family history unknown Not available 2021 14:35:16 Medical History Condition Response Allergies (Food, seasonal, environmental ) N Other Y Drug/Latex Allergies/Reactions N Breast Cancer N Blood Transfusion N Lung Disease N Dermatologic Disorders N Defects or Inherited Disease N Breast Problem N Gestational Diabetes N Hematologic disorders N Anesthesia Complications N History of STI Y Deep Vein Thrombosis N Polycystic ovary syndrome N Anxiety Disorder Y Autoimmune disease N Arthritis N Polyps N Infertility N History of abnormal pap N Acid Reflux (GERD) N Cancer N Varicosities N Stroke N Neurologic/Epilepsy N Endometriosis N High Cholesterol N Headaches Y Fibromyalgia N Kidney Disease N Heart Problems N Thyroid Problems N Kidney or Bladder Problems N GI Problems N Eating Disorder [...] Diagnosis/Indication Diagnosis SNOMED-CT Code Diagnosis ICD10 Code [id number] Emily Tran [place] [address] [address] 08/09/2024 14:03:15 08/09/2024 14:50:15 screening 943392458 Z36.2 O43.112 Z3A.25 [id number] MARY CAMPBELL MD [place] [address] [address] 08/09/2024 14:03:37 08/09/2024 15:28:03 growth restriction 15580081 O36.5999 Past pregn karan history of premature delivery 958560402 Z87.51 Placenta circumvallata 6170444 O43.119 Gestation period, 25 weeks 55211136 Z3A.25 [id number] MARY CAMPBELL MD [place] [address] [address] 08/30/2024 14:01:59 08/30/2024 14:38:08 Gestation period, 28 weeks 75856683 Z3A.28 Past pregn karan history of premature delivery 731761746 Z87.51 Placenta circumvallata 5056319 O43.119 Health Concerns Section Related Observation LastModified by Organization Detai ls LastModified Time None Recorded Concern Status LastModified by Organization Details LastModified Time None Recorded Payers Encounter Date Sequence Insurance Name Policy Number Policy Barba Covered Member ID Barba Member ID Guarantor Name 08/30/2024 1 [facility] ON OR AFTER 03/20/21 (MEDICAID REPLACEMENT - HMO) Marnie Jones [id number] Marnie Jones OBGyn Episode Ob Episode Information Episode Created Date Number of Fetuses Patient Bloodtype Patient rh Status Prepregnancy Weight lbs Domestic Partner Domestic Partner Phone Father Name Hair Stylist Status 05/09/20 24 1 A Positive OPEN Fetus Data First Name Last Name Admitted to NICU Weight (g) Sex Living Outcome Pediatric Complications Fetus ID Race Codes Race Delivery Type [id number] Problems Problem Notes -AC 9% S/D Ratio midly eleva roxane for GA - MFM referral faxed to [facility] 08/09 - pt request to see [facility] STL referral sent 08/23 & 08/30 US & OV 1030 09/19 0815 NST & US Problem Name Start Date End Date Resolution Snomed Code Not e Placenta circumvallata 6900562 32 week growth us Past history of premature delivery 347527321 36wks 3# Herpes simplex 38040621 valtr ex at 36wks Willie Calculation WILLIE [...] Gestation 0 [email or web address] 05/09/2024 11/23/19 25 0 Pre- Flowsheet Flowsheet Date 05/09/2024 Zamora Score Blood Edema Fundus Height Fundus Units Glucose Ketones Leukocytes Nitrite Labor Signs Protein Cervic Dilation Cervic Effacement Cervic Station Type Weight in lbs Pre/Post Dialysis Refused Weight 174.459582755330 BP Diastolic BP Location Tested BP Systolic [...] Type Weight in lbs Pre/Post Dialysis Refused 168.276165373370 BP Diastolic BP Location Tested BP Systolic [...] Type Weight in lbs Pre/Post Dialysis Refused 171.226546947912 BP Diastolic BP Location Tested BP Systolic [...] Type Weight in lbs Pre/Post Dialysis Refused 174.36641531877 BP Diastolic BP Location Tested BP Systolic [...] Type Weight in lbs Pre/Post Dialysis Refused 175.689039451392 BP Diastolic BP Location Tested BP Systolic [...]
--- OUTSIDE RECORDS SUMMARY | 2024-09-18 05:13 | XMS_ITS | Continuity of Care Document ---
Author Organization [facility] Address [address] [place] [address] Care Team Providers Care Porcelain Enameler Name Role Phone DWIGHT WILKINS Primary Care Provider [phone] Assessment No assessment recorded. Plan of Treatment Reminders Order Date Submit Date Provider Last Modified By Organization Details Last Modified Time Details Appointments None recorded. Lab None recorded. Referral None recorded. Procedures None recorded. Surgeries None recorded. Imaging US, obstetric, 2nd or 3rd trimester 2023 024 [email or web address] [address], [place], [address], 14:28:08 Medication Orders None recorded. Patient TargetsNo targets recorded. Patient InstructionsNo instructions recorded. Reason for Referral None Reported. Results Created Date Observation Date Name Description Value Unit Range Abnormal Flag Note LastModifiedBy Organization Detail LastModifiedTime 05/09/20 24 05/09/2024 US, obste tric, nucha l trans lucen cy No observ ation record ed. [email or web address] [place] [address], [place], [address], 05/09/2024 17:41:51 05/09/20 24 05/09/2024 US, obste tric, follo w-up No observ ation record ed. [email or web address] [address], [place], [address], 05/10/2024 15:33:26 07/10/20 24 07/10/2024 US, obste tric, 2nd or 3rd trime ster No observ ation record ed. [email or web address] [place] [address], [place], [address], 07/10/2024 18:08:14 07/10/20 24 07/10/2024 US, obste tric, follo w-up No observ ation record ed. [email or web address] [address], [place], [address], 07/10/2024 14:30:51 08/09/20 24 08/09/2024 US, obste tric, follo w-up No observ ation record ed. [email or web address] [place] [address], [place], [address], 08/09/2024 18:07:39 08/09/20 24 08/09/2024 US, doppl er, umbil ical arter y veloc imetr y No observ ation record ed. [email or web address] [place] [address], [place], [address], 08/09/2024 18:07:49 08/09/20 24 08/09/2024 US, obste tric, follo w-up No observ ation record ed. [address], [place], [address], 08/10/2024 09:26:35 08/16/20 24 08/16/2024 US, obste tric, follo w-up No observ ation record ed. [facility] [address] [place], [address], 08/21/2024 14:35:01 08/16/20 24 08/16/2024 US, obste tric, follo w-up No observ ation record ed. [email or web address] [facility] [address] [place], [address], 08/21/2024 18:44:08 08/16/20 24 08/16/2024 US, obste tric, follo w-up No observ ation record ed. [address] [facility], [place], [address], 08/21/2024 14:35:41 08/23/20 24 08/23/2024 US, obste tric, follo w-up No observ ation record ed. [address] [facility] [address] [facility], [place], [address], 08/24/2024 12:17:03 08/30/20 24 08/30/2024 US, obste tric, follo w-up No observ ation record ed. [email or web address] [facility] [address], [place], [address], 09/07/2024 15:05:47 08/30/20 24 08/30/2024 US, obste tric, follo w-up No observ ation record ed. [email or web address] [facility] [address], [place], [address], 09/07/2024 14:59:51 Result Notes None recorded. Problems Name Problem SNOMED Code Status Onset Date Resolution Date Notes Provider Name and Address Organization Details Recorded Time Prediabete s 056743138 Active 2023 MARY CAMPBELL MD [address], [place], [address], [place] [facility] 4 17:19:44 56313697 Active 2023 Cyndee nieves, [facility] 4 19:05:42 Herpes simplex 05718400 Active valtrex at 36wks Lulú Ram [facility], [facility] 14:38:56 Herpes simplex 06814916 Active valtrex at 36wks Lulú Ram [facility], [facility] 4 14:38:56 Past history of premature delivery 266776616 Active 36wks 3# Lulú nieves, [facility] 4 14:41:25 Past history of premature delivery 837722223 Active 36wks 3# Lulú nieves, [facility] 4 14:41:25 Placenta circumvall tereza 1732203 Active 32 week growth us Lulú nieves, [facility] 4 14:30:07 Placenta circumvall tereza 1835610 Active 32 week growth Lulú nieves, [facility] 4 14:30:07 Problem Notes None recorded. Procedures Surgical History Date Name Laterality Status Provider Name and Address Organization Details Recorded Time 02/22/20 24 SIS completed MARY CAMPBELL MD [address], [place], [address], [facility] 02/22/2024 14:59:37 10/22/19 24 Dilation and Curettage completed Mary Anne Foley [facility] 04/11/2024 16:28:40 06/04/20 23 Date of Last Pap Smear completed Jennifer Gaspar [facility] 01/26/2024 09:35:03 06/20/20 20 arm destructive procedure completed Mary Anne Foley [facility] 04/11/2024 16:29:31 Imaging Results Imaging Date Name Status LastModified by Organiz ation Details LastModified Time 07/10/2024 US, obstetric, 2nd or 3rd trimester completed [email or web address] [address], [place], [address], 07/10/2024 18:08:14 07/10/2024 US, obstetric, follow-up completed [email or web address] [address], [place], [address], 07/10/2024 14:30:51 Procedure Notes None recorded. Medical Equipment None [...] Updated DateTime 07/10/2024 156.21 cm 31.8 kg/m2 53374.29 527 g 114 mm[Hg] 81 mm[Hg] Jennifer Gaspar [facility] 11:38:54 Social History Question Answer Notes LastModified by Organizat ion Details LastModified Time Tobacco Smoking Status Current Every Day Smoker Mary Anne nieves, [facility] 04/11/2024 16:28:24 Do You Have An Advance Directive? No Information not available 07/24/2022 What Is Your Level Of Alcohol Consumption? None [email or web address] Information not available 04/11/2024 If You Are , What Was Your Level Of Alcohol Consumption Prior To ? Occasional [email or web address] Information not available 04/11/2024 How Many Years [...] Or The Highest Degree You Have Received? [id number] Information not available 07/24/2022 Are There Any [...] Anxious, Or Unable To Sleep At Night)? [id number] Information not available 07/24/2022 Do You Use [...] have difficulty walking or climbing stairs? No [email or web address] Information not available 10/05/2023 Are you able to walk? YESWOREST Information not available 07/24/2022 Are you able to care for yourself? Yes [email or web address] Information not available 10/05/2023 Do you have difficulty dressing or bathing? No [email or web address] Information not available 10/05/2023 What is your [...] Diagnosis/Indication Diagnosis SNOMED-CT Code Diagnosis ICD10 Code [id number] Shavonne Downey [place] [address] [address] 07/10/2024 10:34:36 07/10/2024 11:41:39 screening for malformation 426073330 Z36.3 Z3A.20 [id number] MARY CAMPBELL MD [place] [address] [address] 07/10/2024 10:34:58 07/10/2024 12:34:00 Placenta circumvallata 2598681 O43.119 Gestation period, 20 weeks 33300584 Z3A.20 Health Concerns Section Related Observation LastModified by Organization Detai ls LastModified Time None Recorded Concern Status LastModified by Organization Details LastModified Time None Recorded Payers Encounter Date Sequence Insurance Name Policy Number Policy Barba Covered Member ID Barba Member ID Guarantor Name 07/10/2024 1 [facility] ON OR AFTER 03/20/21 (MEDICAID REPLACEMENT - HMO) Marnie Jones [id number] Marnie Jones OBGyn Episode Ob Episode Information Episode Created Date Number of Fetuses Patient Bloodtype Patient rh Status Prepregnancy Weight lbs Domestic Partner Domestic Partner Phone Father Name Any Commodity Buyer Status 05/09/20 24 1 A Positive OPEN Fetus Data First Name Last Name Admitted to NICU Weight (g) Sex Living Outcome Pediatric Complications Fetus ID Race Codes Race Delivery Type [id number] Problems Problem Notes -AC 9% S/D Ratio midly eleva roxane for [place] - MFM referral faxed to [facility] 08/09 - pt request to see [facility] STL referral sent 08/23 & 08/30 US & OV 1030 09/19 0815 NST & US Problem Name Start Date End Date Resolution Snomed Code Not e Placenta circumvallata 7833391 32 week growth us Past history of premature delivery 643398916 36wks 3# Herpes simplex 63122506 valtr ex at 36wks Willie Calculation WILLIE [...] Weight in lbs Pre/Post Dialysis Refused Weight 174.743341235456 BP Diastolic BP Location Tested BP Systolic BP Type 80 127 Fetus Heart Rate Present A 160 Fetus Movement A Yes Comments Patient presents to [facility] care. Doing well, nausea minimal. No cramping or bleeding. Feeling baby move already. NT/NB wnl today. Low risk NIPT, finding gender out soon! Other OB labs wnl. Discussed routine care. RTC 4 weeks. Flowsheet Date 05/17/2024 Zamoar Score Blood Edema Fundus Height Fundus Units [...] Type Weight in lbs Pre/Post Dialysis Refused 168.793413505782 BP Diastolic BP Location Tested BP Systolic [...] Type Weight in lbs Pre/Post Dialysis Refused 171.084733983500 BP Diastolic BP Location Tested BP Systolic [...] Type Weight in lbs Pre/Post Dialysis Refused 174.39924018794 BP Diastolic BP Location Tested BP Systolic [...] Type Weight in lbs Pre/Post Dialysis Refused 175.558968462888 BP Diastolic BP Location Tested BP Systolic [...]
--- OUTSIDE RECORDS SUMMARY | 2024-09-18 05:13 | XMS_ITS | Continuity of Care Document ---
Author Organization [facility] [place] Address [address] [place] [place] [address] Care Team Providers Care Blade Filer Name Role Phone DWIGHT WILKINS Primary Care Provider [phone] Assessment No assessment recorded. Plan of Treatment Reminders Order Date Submit Date Provider Last Modified By Organization Details Last Modified Time Details Appointments None recorded. Lab None recorded. Referral None recorded. Procedures None recorded. Surgeries None recorded. Imaging US, obstetric, follow-up [address], [address], [place], [address], 21:16:39 US, doppler, umbilical artery velocimetry [address] [facility] [address], [place], [address], 21:16:39 Medication Orders None recorded. Patient TargetsNo targets recorded. Patient InstructionsNo instructions recorded. Reason for Referral None Reported. Results Created Date Observation Date Name Description Value Unit Range Abnormal Flag Note LastModifiedBy Organization Detail LastModifiedTime 05/09/20 24 05/09/2024 US, obste tric, nucha l trans lucen cy No observ ation record ed. [email or web address] [place] [address], [place], [address], 05/09/2024 17:41:51 05/09/20 24 05/09/2024 US, obste tric, follo w-up No observ ation record ed. [email or web address] [address] [address], [place], [address], 05/10/2024 15:33:26 07/10/20 24 07/10/2024 US, obste tric, 2nd or 3rd trime ster No observ ation record ed. [facility] [address], [place], [address], 07/10/2024 18:08:14 07/10/20 24 07/10/2024 US, obste tric, follo w-up No observ ation record ed. [email or web address] [address], [place], [address], 07/10/2024 14:30:51 08/09/20 24 08/09/2024 US, obste tric, follo w-up No observ ation record ed. [email or web address] [place] [address], [place], [address], 08/09/2024 18:07:39 08/09/20 24 08/09/2024 US, doppl er, umbil ical arter y veloc imetr y No observ ation record ed. [email or web address] [place] [address], [place], [address], 08/09/2024 18:07:49 08/09/20 24 08/09/2024 US, obste tric, follo w-up No observ ation record ed. [address], [place], [address], 08/10/2024 09:26:35 08/16/20 24 08/16/2024 US, obste tric, follo w-up No observ ation record ed. [facility] [address] [facility], [place], [address], 08/21/2024 14:35:01 08/16/20 08/16/2024 US, obste tric, follo w-up No observ ation record ed. [email or web address] [place], [address], 08/21/2024 18:44:08 08/16/20 24 08/16/2024 US, obste tric, follo w-up No observ ation record ed. [address], [place], [address], 08/21/2024 14:35:41 08/23/20 24 08/23/2024 US, obste tric, follo w-up No observ ation record ed. [address] [facility] [address] [place], [address], 08/24/2024 12:17:03 08/30/20 24 08/30/2024 US, obste tric, follo w-up No observ ation record ed. [facility] [address], [place], [address], 09/07/2024 15:05:47 08/30/20 24 08/30/2024 US, obste tric, follo w-up No observ ation record ed. [email or web address] [facility] [address] [place], [address], 09/07/2024 14:59:51 Result Notes None recorded. Problems Name Problem SNOMED Code Status Onset Date Resolution Date Notes Provider Name and Address Organization Details Recorded Time Prediabete s 196624090 Active 2023 MARY CAMPBELL MD [address], [place], [address], , P.C. 17:19:44 23994813 Active 2023 Cyndee nieves, [facility] 19:05:42 Herpes simplex 28834984 Active valtrex at 36wks Lulú nieves, [facility] 4 14:38:56 Herpes simplex 41440068 Active valtrex at 36wks Lulú nieves, [facility] 4 14:38:56 Past history of premature delivery 192858298 Active 36wks 3# Lulú nieves, [facility] 4 14:41:25 Past history of premature delivery 298387258 Active 36wks 3# Lulú nieves, [facility] 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 4 14:30:07 Placenta circumvall tereza 2839058 Active 32 week growth Lulú nieves, [facility] 4 14:30:07 Problem Notes None recorded. Procedures Surgical History Date Name Laterality Status Provider Name and Address Organization Details Recorded Time 02/22/20 24 SIS completed MARY CAMPBELL MD [address], [place], [address], , P[facility] 02/22/2024 14:59:37 10/22/19 24 Dilation and Curettage completed Mary Anne Foley [facility] 04/11/2024 16:28:40 06/04/20 23 Date of Last Pap Smear completed Jennifer Gaspar [facility] 01/26/2024 09:35:03 06/20/20 20 arm destructive procedure completed Mary Anne Foley [facility] 04/11/2024 16:29:31 Imaging Results Imaging Date Name Status LastModified by Organiz ation Details LastModified Time 08/09/2024 US, obstetric, follow-up completed [email or web address] [place] [address], [place], [address], 08/09/2024 18:07:39 08/09/2024 US, doppler, umbilical artery velocimetry completed [email or web address] [place] [address], [place], [address], 08/09/2024 18:07:49 08/09/2024 US, obstetric, follow-up completed [email or web address] [address], [place], [address], 08/10/2024 09:26:35 Procedure Notes None recorded. Medical Equipment None [...] CAPSULE BY MOUTH EVERY 8 HOURS NEEDED 12/12 /2022 completed Not Available Not Available Not Available [...] Updated DateTime 08/09/2024 156.21 cm 32.3 kg/m2 18851.07 238 g 116 mm[Hg] 77 mm[Hg] Jennifer Gaspar [facility] 14:50:01 Social History Question Answer Notes LastModified by Organizat ion Details LastModified Time Tobacco Smoking Status Current Every Day Smoker Mary Anne Foley [facility] 04/11/2024 16:28:24 Do You Have An Advance Directive? No Information not available 07/24/2022 What Is Your Level Of Alcohol Consumption? None [email or web address] Information not available 04/11/2024 If You Are , What Was Your Level Of Alcohol Consumption Prior To ? Occasional [email or web address] Information not available 04/11/2024 How Many Years [...] Or The Highest Degree You Have Received? [id number] Information not available 07/24/2022 Are There Any [...] Anxious, Or Unable To Sleep At Night)? [id number] Information not available 07/24/2022 Do You Use [...] have difficulty walking or climbing stairs? No [email or web address] Information not available 10/05/2023 Are you able to walk? [email or web address] Information not available 07/24/2022 Are you able to care for yourself? Yes [email or web address] Information not available 10/05/2023 Do you have difficulty dressing or bathing? No [email or web address] Information not available 10/05/2023 What is your [...] Diagnosis/Indication Diagnosis SNOMED-CT Code Diagnosis ICD10 Code [id number] [facility] [address] [address] 07/10/2024 10:34:36 07/10/2024 11:41:39 screening for malformation 636681498 Z36.3 Z3A.20 [id number] MARY CAMPBELL MD [place] [address] [address] 07/10/2024 10:34:58 07/10/2024 12:34:00 Placenta circumvallata 2328880 O43.119 Gestation period, 20 weeks 74533034 Z3A.20 [id number] [facility] [address],[place] [address] 08/09/2024 14:03:15 08/09/2024 14:50:15 screening 702742016 Z36.2 O43.112 Z3A.25 [id number] MARY CAMPBELL MD [place] [address] [address] 08/09/2024 14:03:37 08/09/2024 15:28:03 growth restriction 44912286 O36.5999 Past pregn karan history of premature delivery 458893457 Z87.51 Placenta circumvallata 0579085 O43.119 Gestation period, 25 weeks 98030733 Z3A.25 Health Concerns Section Related Observation LastModified by Organization Detai ls LastModified Time None Recorded Concern Status LastModified by Organization Details LastModified Time None Recorded Payers Encounter Date Sequence Insurance Name Policy Number Policy Barba Covered Member ID Barba Member ID Guarantor Name 08/09/2024 1 [facility] ON OR AFTER 03/20/21 (MEDICAID REPLACEMENT - HMO) Marnie Jones [id number] Marnie Jones OBGyn Episode Ob Episode Information Episode Created Date Number of Fetuses Patient Bloodtype Patient rh Status Prepregnancy Weight lbs Domestic Partner Domestic Partner Phone Father Name Section 8 Property Manager Status 05/09/20 24 1 A Positive OPEN Fetus Data First Name Last Name Admitted to NICU Weight (g) Sex Living Outcome Pediatric Complications Fetus ID Race Codes Race Delivery Type [id number] Problems Problem Notes -AC 9% S/D Ratio midly eleva roxane for GA - MFM referral faxed to Marlene 08/09 - pt request to see [facility] referral sent 08/23 & 08/30 US & OV 1030 09/19 0815 NST & US Problem Name Start Date End Date Resolution Snomed Code Not e Placenta circumvallata 4384193 32 week growth us Past history of premature delivery 432223161 36wks 3# Herpes simplex 73313971 valtr ex at 36wks Willie Calculation WILLIE [...] Weight in lbs Pre/Post Dialysis Refused Weight 174.819486593299 BP Diastolic BP Location Tested BP Systolic BP Type 80 127 Fetus Heart Rate Present A 160 Fetus Movement A Yes Comments Patient presents to [facility] care. Doing well, nausea minimal. No [...] Type Weight in lbs Pre/Post Dialysis Refused 168.090188193967 BP Diastolic BP Location Tested BP Systolic [...] Type Weight in lbs Pre/Post Dialysis Refused 171.906607596363 BP Diastolic BP Location Tested BP Systolic [...] Type Weight in lbs Pre/Post Dialysis Refused 174.60059840347 BP Diastolic BP Location Tested BP Systolic BP Type 77 L arm 116 sitting Fetus Heart Rate Present A Present Fetus Movement A Yes Comments Patient c/o heartburn, will try tums and pepcid. Anatomy complete and normal today, however AC 9% with mildly elevated SD ratio on UADs. Will send [facility] referral for further evaluation. Otherwise, doing well. RTC 3 weeks for GCT and labs. Flowsheet Date 08/30/2024 Zamora Score Blood Edema Fundus Height Fundus Units Glucose Ketones Leukocytes Nitrite Labor Signs Protein Cervic Dilation Cervic Effacement Cervic Station neg none Type Weight in lbs Pre/Post Dialysis Refused 175.273196339147 BP Diastolic BP Location Tested BP Systolic BP Type 82 L arm 119 sitting Fetus Heart Rate Present A Present Fetus Movement A Yes Comments Doing well, good movem ent. No cramping or bleeding. US wnl at [facility] today, AC and EFW 16%. UADs slightly [...]
--- OUTSIDE RECORDS SUMMARY | 2024-09-18 05:13 | XMS_ITS | Continuity of Care Document ---
Author Organization [facility] Address [address] [place] [address] Care Team Providers Care Drawer Upfitter Name Role Phone DWIGHT WILKINS Primary Care [...] cy No observ ation record ed. [email or web address] [place] [address], [place], [address], 05/09/2024 17:41:51 05/09/20 24 05/09/2024 US, obste tric, follo w-up No observ ation record ed. [email or web address] [address], [place], [address], 05/10/2024 15:33:26 07/10/20 24 07/10/2024 US, obste tric, 2nd or 3rd trime ster No observ ation record ed. [facility] [address], [place], [address], 07/10/2024 18:08:14 07/10/20 24 07/10/2024 US, obste tric, follo w-up No observ ation record ed. [email or web address] [address], [place], [address], 07/10/2024 14:30:51 08/09/20 24 08/09/2024 US, obste tric, follo w-up No observ ation record ed. [email or web address] [place] [address], [place], [address], 08/09/2024 18:07:39 08/09/20 24 08/09/2024 US, doppl er, umbil ical arter y veloc imetr y No observ ation record ed. [email or web address] [place] [address], [place], [address], 08/09/2024 18:07:49 08/09/20 24 08/09/2024 US, obste tric, follo w-up No observ ation record ed. [email or web address] [address], [place], [address], 08/10/2024 09:26:35 08/16/20 24 08/16/2024 US, obste tric, follo w-up No observ ation record ed. [address], [address], 08/21/2024 14:35:01 08/16/20 24 08/16/2024 US, obste tric, follo w-up No observ ation record ed. [email or web address], [address], 08/21/2024 18:44:08 08/16/20 24 08/16/2024 US, obste tric, follo w-up No observ ation record ed. [id number] [place], [address], 08/21/2024 14:35:41 08/23/20 24 08/23/2024 US, obste tric, follo w-up No observ ation record ed. [facility] [address], [place], [address], 08/24/2024 12:17:03 08/30/20 24 08/30/2024 US, obste tric, follo w-up No observ ation record ed. [email or web address] [facility] [address], [place], [address], 09/07/2024 15:05:47 08/30/20 24 08/30/2024 US, obste tric, follo w-up No observ ation record ed. [email or web address] [facility] [place] [address], [place], [address], 09/07/2024 14:59:51 Result Notes None recorded. Problems Name Problem SNOMED Code Status Onset Date Resolution Date Notes Provider Name and Address Organization Details Recorded Time Prediabete s 720004315 Active 2023 MARY CAMPBELL MD [address], [place], [address], [facility] 4 17:19:44 36318558 Active 2023 Cyndee [facility], [facility] 4 19:05:42 Herpes simplex 52065044 Active valtrex at 36wks Lulú Yo [facility], [facility] 4 14:38:56 Herpes simplex 30108083 Active valtrex at 36wks Lulú Yo nieves, [facility] 4 14:38:56 Past history of premature delivery 340121926 Active 36wks 3# Lulú Yo nieves, [facility] 4 14:41:25 Past history of premature delivery 750361405 Active 36wks 3# Lulú Ram null, [facility] 4 14:41:25 Placenta circumvall tereza 2787616 Active 32 week growth Lulú nieves, [facility] 4 14:30:07 Placenta circumvall tereza 1779036 Active 32 week growth Lulú nieves, [facility] 4 14:30:07 Problem Notes None recorded. Procedures Surgical History Date Name Laterality Status Provider Name and Address Organization Details Recorded Time 02/22/20 24 SIS completed MARY CAMPBELL MD [address], [place], [address], [facility] 02/22/2024 14:59:37 10/22/19 24 Dilation and Curettage completed Mary Anne Foley [facility] 04/11/2024 16:28:40 06/04/20 23 Date of Last Pap Smear completed Jennifer Gaspar [facility] 01/26/2024 09:35:03 06/20/20 20 arm destructive procedure completed Mary Annejasmin Foley [facility] 04/11/2024 16:29:31 Imaging Results None recorded. [...] Updated DateTime 07/10/2024 156.21 cm 31.8 kg/m2 80587.29 527 g 114 mm[Hg] 81 mm[Hg] Jennifer Gaspar [facility] 11:38:54 Social History Question Answer Notes LastModified by Organizat ion Details LastModified Time Tobacco Smoking Status Current Every Day Smoker Mary Anne nieves, [facility] 04/11/2024 16:28:24 Do You Have An Advance Directive? No Information not available 07/24/2022 What Is Your Level Of Alcohol Consumption? None [email or web address] Information not available 04/11/2024 If You Are , What Was Your Level Of Alcohol Consumption Prior To ? Occasional [email or web address] Information not available 04/11/2024 How Many Years [...] Or The Highest Degree You Have Received? [id number] Information not available 07/24/2022 Are There Any [...] Anxious, Or Unable To Sleep At Night)? [id number] Information not available 07/24/2022 Do You Use [...] have difficulty walking or climbing stairs? No [email or web address] Information not available 10/05/2023 Are you able to walk? [email or web address] Information not available 07/24/2022 Are you able to care for yourself? Yes [email or web address] Information not available 10/05/2023 Do you have difficulty dressing or bathing? No [email or web address] Information not available 10/05/2023 What is your exercise level? Occasional Information not available 07/24/2022 Mental Status None recorded. Family History Relationship Description Onset Age of this Age Resolved Age Notes LastModified by Organization Details LastModified Time Unspecified Relation Family history unknown Not available 2021 14:35:16 Medical History Condition Response Allergies (Food, seasonal, environmental ) N Other Y Drug/Latex Allergies/Reactions N Blood Transfusion N Breast Cancer N Dermatologic Disorders N Lung Disease N Defects or Inherited Disease N Breast Problem N Gestational Diabetes N Hematologic disorders N Anesthesia Complications N History of STI Y Deep Vein Thrombosis N Polycystic ovary syndrome N Anxiety Disorder Y Autoimmune disease N Arthritis N Polyps N Infertility N Acid Reflux (GERD) N History of abnormal pap N Cancer N Varicosities N Stroke N Neurologic/Epilepsy N Endometriosis N High Cholesterol N Fibromyalgia N Headaches Y Kidney Disease N Heart Problems N Thyroid [...] Diagnosis/Indication Diagnosis SNOMED-CT Code Diagnosis ICD10 Code [id number] Shavonne Downey [place] [address] [address] 07/10/2024 10:34:36 07/10/2024 11:41:39 screening for malformation 448369879 Z36.3 Z3A.20 [id number] MAYR CAMPBELL MD [place] [address] [address] 07/10/2024 10:34:58 07/10/2024 12:34:00 Placenta circumvallata 4358026 O43.119 Gestation period, 20 weeks 65751722 Z3A.20 Health Concerns Section Related Observation LastModified by Organization Detai ls LastModified Time None Recorded Concern Status LastModified by Organization Details LastModified Time None Recorded Payers Encounter Date Sequence Insurance Name Policy Number Policy Barba Covered Member ID Barba Member ID Guarantor Name 07/10/2024 1 [facility] ON OR AFTER 03/20/21 (MEDICAID REPLACEMENT - HMO) Marnie Jones [id number] Marnie Jones OBGyn Episode Ob Episode Information Episode Created Date Number of Fetuses Patient Bloodtype Patient rh Status Prepregnancy Weight lbs Domestic Partner Domestic Partner Phone Father Name 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 Riveter Status 05/09/20 24 1 A Positive OPEN Fetus Data First Name Last Name Admitted to NICU Weight (g) Sex Living Outcome Pediatric Complications Fetus ID Race Codes Race Delivery Type [id number] Problems Problem Notes -AC 9% S/D Ratio midly eleva roxane for [place] - MFM referral faxed to Marlene 08/09 - pt request to see [facility] referral sent 08/23 & 08/30 US & OV 1030 09/19 0815 NST & US Problem Name Start Date End Date Resolution Snomed Code Not e Placenta circumvallata 1723577 32 week growth us Past history of premature delivery 705738101 36wks 3# Herpes simplex 59721295 valtr ex at 36wks Willie Calculation WILLIE [...] Weight in lbs Pre/Post Dialysis Refused Weight 174.725102233603 BP Diastolic BP Location Tested BP Systolic BP Type 80 127 Fetus Heart Rate Present A 160 Fetus Movement A Yes Comments Patient presents to [facility] care. Doing well, nausea minimal. No cramping [...] Type Weight in lbs Pre/Post Dialysis Refused 168.068218117696 BP Diastolic BP Location Tested BP Systolic [...] Type Weight in lbs Pre/Post Dialysis Refused 171.658132200880 BP Diastolic BP Location Tested BP Systolic [...] Type Weight in lbs Pre/Post Dialysis Refused 174.97969327844 BP Diastolic BP Location Tested BP Systolic BP Type 77 L arm 116 sitting Fetus Heart Rate Present A Present Fetus Movement A Yes Comments Patient c/o heartburn, will try tums and pepcid. Anatomy complete and normal today, however AC 9% with mildly elevated SD ratio on UADs. Will send [facility] referral for further evaluation. Otherwise, doing well. RTC 3 weeks for GCT and labs. Flowsheet Date 08/30/2024 Zamora Score Blood Edema Fundus Height Fundus Units Glucose Ketones Leukocytes Nitrite Labor Signs Protein Cervic Dilation Cervic Effacement Cervic Station neg none Type Weight in lbs Pre/Post Dialysis Refused 175.755166213531 BP Diastolic BP Location Tested BP Systolic BP Type 82 L arm 119 sitting Fetus Heart Rate Present A Present Fetus Movement A Yes Comments Doing well, good movem ent. No cramping or bleeding. US wnl at [facility] today, AC and EFW 16%. UADs slightly [...]
--- OUTSIDE RECORDS SUMMARY | 2024-09-18 05:14 | XMS_ITS | Encounter Summary ---
Author Organization [facility] Healthcare Address [address] [place] [address] Care Team Providers Care Clam Grader Name Role Phone Brian Velarde Primary Care Provider + Reason for Visit * Auth/Cert Specialty Diagnoses / Procedures Referred By Christina diana Referred To Contact Referral ID Status Reason Start Date Expiration Date Visits Re quested Visits Authorized [id number] 1 1 Encounter Details Date Type Department Care Team (Latest Contact Info) Description 03/17/2024 10:27 AM CDT - 03/17/2024 10:40 AM CDT Hospital Encounter [address] [phone] Luisa Linder MD [address] [address] Discharge Disposition: Discharge to home or self care Social History Tobacco Use Types Packs/Day Years Used Date Smoking Tobacco: Every Day Cigarettes 0.2 17 Started: 2007 Smokeless Tobacco: Never Comments:Pt denies previousl y charted tobacco use-chiku Alcohol Use Standard Drinks/Week Comments Yes 3 (1 standard drink = 0.6 oz pur e alcohol) occasional AUDIT-C Answer Date Recorded Q1: How often do you have a drink containing alcohol? Never 09/30/2022 Q2: How many drinks containi ng alcohol do you have on a typical day when you are drinking? Patient does not drink Q3: How often do you have si x or more drinks on one occasion? Never 09/30/2022 PHQ-2 Answer Date Recorded PHQ-2 Score 2 05/12/2019 Personal Safety Answer Date Recorded Have you ever been in or are you currently in a harmful physical or emotional relationship or is someone making you feel afraid or unsafe? 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 Not on file Not on file Not on file documented as of this encounter Last Filed Vital Signs Vital Sign Reading Time Taken Comments Blood Pressure 126/78 03/17/2024 10:35 AM CDT Pulse 78 03/17/2024 10:35 AM CDT Temperature 37 ??C (98.6 ??F) 03/17/2024 10:35 AM CDT Respiratory Rate 16 03/17/2024 10:35 AM CDT Oxygen Saturation 100% 03/17/2024 10:35 AM CDT Inhaled Oxygen Concentration - - Weight - - Height - - Body Mass Index - - documented in this encounter Medications at Time of Discharge acetaminophen (TYLENOL) 500 mg tablet Take 1 tablet (500 mg total) by mouth every 6 (six) hours as needed for pain 30 tablet 09/24/2022 polyethylene glycol (MIRALAX) 17 gram/dose bulk powder Take 17 g by mouth daily 200 g 3 03/20/2024 lidocaine (GLYDO) 2 % jelly in applicator 09/20/2022 4 ondansetron ODT (ZOFRAN-ODT) 4 mg disintegrating tablet Take 1 tablet (4 mg total) by mouth every 8 (eight) hours as needed for nausea or vomiting 20 tablet 09/09/2022 4 documented as of this encounter Discharge Disposition Disposition Code Departure Means Destination Discharge to home or self care documented in this encounter Progress Notes * Joanne Bautista RN - 03/17/2024 10:35 AM CDT Marnie presented to [facility] for repeat hcg level, no further complaints, some cramping yesterday but none today. 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 VSS, labs drawn and sent to lab, [facility] and will call with follow up info. Stable for d/c home. Parking pass given. documented in this encounter Plan of Treatment Upcoming Encounters Date Type Department Care Team (Late st Contact Info) Description 11/19/2024 Hospital Encounter [facility] [address] [place] [address] Gal Bass MD [address] [phone] [place] [address] documented as of this encounter Procedures Procedure Name Priority Date/Time Associated Diagnosis Comments HCG, BLOOD, QUANTITATIVE Timed 03/17/2024 10:34 AM CDT documented in this encounter Results * (ABNORMAL) hCG, blood, quantitative (03/17/2024 10:34 AM CDT) hCG, quant 470.0(H) 0.0 - 5.0 IUnits/L Comment: Interpretive Data Male: < 5 IU/L Non- premenopausal Female: <5 IU/L The Kirill hCG Beta Quant assay procedure was used. Results from different manufacturers or methods may not be comparable. ??Serial testing should be performed using the same method. Interpretive Data was last revised on 2023 Blood 03/17/2024 10:3 4 AM CDT 03/17/2024 10:51 AM CDT us Luisa Linder MD LAB BLOOD ORDERABLES Final Result [facility] Department [place] [address] documented in this encounter Visit Diagnoses Not on filedocumented in this encounter Care Teams Clam Grader Relationship Specialty Start Date End Date Brian Velarde DO [address] [place] [address] PCP - General Family Practice 07/25/20 documented as of this encounter
--- OUTSIDE RECORDS SUMMARY | 2024-09-18 05:14 | XMS_ITS | Encounter Summary ---
Author Organization [facility] Healthcare Address [address] [place] [address] Care Team Providers Care Glass Laminating Operator Name Role Phone Brian Velarde DO Primary Care Provider + Encounter Details Date Type Department Care Team (Late st Contact Info) Description 09/16/2023 Telephone [facility] [address] [facility] 3rd Floor [address] [place] [address] Ni Bonilla RN Social History Tobacco Use Types Packs/Day Years [...] you feel afraid or unsafe? 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 No answer by pt, generic message left. [employer] documented in this encounter Plan of Treatment Upcoming Encounters Date Type Department Care Team (Late st Contact Info) Description 11/19/2024 Hospital Encounter [facility] 1 [place] [address] Gal Bass MD [address] [phone] [place] [address] documented as of this encounter Visit Diagnoses Not on filedocumented in this encounter Care Teams Glass Laminating Operator Relationship Specialty Start Date End Date Brian Velarde DO [address] [place] [address] PCP - General Family Practice 07/25/20 documented as of this encounter
--- OUTSIDE RECORDS SUMMARY | 2024-09-18 05:14 | XMS_ITS | Encounter Summary ---
Author Organization [facility] Healthcare Address [address] [place] [address] Care Team Providers Care Vehicle Technician Name Role Phone Brian Velarde Primary Care Provider + Encounter Details Date Type Department Care Team (Late st Contact Info) Description 03/30/2024 Telephone [facility] 1 [place] [address] Danielle Manuel MD [address] [facility] [place] [address] [facility] [address] [place], [place] [id number] Social History Tobacco Use Types Packs/Day Years [...] making you feel afraid or unsafe? 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 female with PUL Plan: Problem of Unknown Anatomic Location Telephone Number Shorty Murphy [phone] (home) Home Yes [phone] Self Yes [] PUL Card Given Working Diagnosis: PUL Date presented: 03/27/24 Brief HPI: 28 y.o. at approximately 6w2d presented with abdominal pain on 03/15 and was found to have a PUL. H/o 2 prior medically managed R ectopics. Ultrasound: No GS seen, no IUP on TVUS 03/15: 178.0 03/17: 470; called pt with results left VM 03/20: Called pt to get repeat beta edmund, left VM. 03/21: 1907, 75% increase 03/24: called pt, will present to [facility] edmund 03/27: Left VM 03/30: Left VM Rh Status: A Positive [] Rhogam Given Beta Trend: Lab Results Component Value Date HCG 1,907.0 (H) 03/20/2024 HCG 470.0 (H) 03/17/2024 HCG 178.0 (H) 03/15/2024 HCG 4,558.0 (H) 09/15/2023 HCG 1,426.0 (H) 10/16/2022 HCG 3,308.0 (H) 10/03/2022 HCG 6,661.0 (H) 09/30/2022 HCG 8,468.0 (H) 09/27/2022 HCG 8,401.0 (H) 09/26/2022 HCG 9,609.0 (H) 09/24/2022 HCG 6,961.0 (H) 09/20/2022 HCG 2,554.0 (H) 09/13/2022 HCG 1,649.0 (H) 09/11/2022 HCG 455.1 (H) 09/08/2022 HCG 251.9 (H) 09/05/2021 HCG 1,472.1 (H) 08/31/2021 HCG 5,483.7 (H) 08/28/2021 HCG 6,942.1 (H) 08/27/2021 HCG 7,623.8 (H) 08/24/2021 HCG 5,304.9 (H) 08/21/2021 HCG 3,218.4 (H) 08/19/2021 HCG 6.0 (H) 12/04/2020 HCG 38.0 (H) 11/29/2020 HCG 683497.0 (H) 08/28/2016 PLAN Next beta due: 03/24 overdue, US scheduled for 04/05 Contraception: NA [] Signed out with attending and okay to remove from beta book. Attending Name: documented in this encounter Plan of Treatment Upcoming Encounters Date Type Department Care Team (Late st Contact Info) Description 11/19/2024 Hospital Encounter [facility] 1 [place] [address] Gal Bass MD [address] [facility] [phone] [place] [address] documented as of this encounter Visit Diagnoses Not on filedocumented in this encounter Care Teams Vehicle Technician Relationship Specialty Start Date End Date Brian Velarde DO [address] [place] [address] PCP - General Family Practice 07/25/20 documented as of this encounter
--- OUTSIDE RECORDS SUMMARY | 2024-09-18 05:14 | XMS_ITS | Encounter Summary ---
Author Organization [facility] Address [address] [place] [address] Care Team Providers Care Sales Lead Name Role Phone Brian Velarde Primary Care Provider + Reason for Referral * Diagnostic Imaging (Routine) - Pending Review Specialty Diagnoses / Procedures Referred By Contac t Referred To Contact Diagnoses with inconclusive viability, single or unspecified fetus Procedures US Ob Limited Susana Briceño MD Phone: tel: fax: [facility] (All Locations) Referral ID Status Reason Start Date Expiration Date V isits Requested Visits Authorized [id number] Pending Review 09/30/2023 10/29/2024 1 1 ER DIVER NET * Diagnostic Imaging (Routine) - Closed Specialty Diagnoses / Procedures Referred By Contac t Referred To Contact Diagnoses with inconclusive viability, single or unspecified fetus Procedures US Ob Limited Susana Briceño MD Phone: tel: fax: [address] [phone] Referral ID Status Reason Start Date Expiration Date Visits Re quested Visits Authorized [id number] Closed 09/15/2023 10/14/2024 1 1 ER DIVER NET Reason for Visit * Diagnostic Imaging (Routine) - Closed Specialty Diagnoses / Procedures Referred By Contac t Referred To Contact Diagnoses with inconclusive viability, single or unspecified fetus Procedures US Ob Limited Susana Briceño MD Phone: tel: fax: [address] [phone] Referral ID Status Reason Start Date Expiration Date Visits Re quested Visits Authorized [id number] Closed 09/15/2023 10/14/2024 1 1 Encounter Details Date Type Department Care Team (Latest Contact Info) Description 09/30/2023 1:26 PM FISHER DIVER NET - 09/30/2023 11:59 PM FISHER DIVER NET Hospital Encounter [facility] [address] [facility], 7th Floor, [address] [place] [address] with inconclusive viability, single or unspecified fetus Discharge Disposition: Discharge to home or self [...] on file 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 Gender Identity Not on file Sexual Orientation Not on file 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 Not on file Not on file Not on file documented as of this encounter Medications at Time of Discharge acetaminophen (TYLENOL) 500 mg tablet Take 1 tablet (500 mg total) by mouth every 6 (six) hours as needed for pain 30 tablet 09/24/2022 gabapentin (NEURONTIN) 300 mg capsule Take 1 capsule (300 mg total) by mouth 3 (three) times a day 90 capsule 2 04/01/2022 4 lidocaine (GLYDO) 2 % jelly in applicator 09/20/2022 4 ondansetron ODT (ZOFRAN-ODT) 4 mg disintegrating tablet Take 1 tablet (4 mg total) by mouth every 8 (eight) hours as needed for nausea or vomiting 20 tablet 09/09/2022 4 valACYclovir (VALTREX) 1 gram tablet 08/31/2022 4 documented as of this encounter Discharge Disposition Disposition Code Departure Means Destination Discharge to home or self care documented in this encounter Plan of Treatment Upcoming Encounters Date Type Department Care Team (Late st Contact Info) Description 11/19/2024 Hospital Encounter [facility] 1 [place] [address] Gal Bass MD [address] [facility] [phone] [place] [address] Scheduled Orders Name Type Priority Associated Diagnoses Orde r Schedule US Ob Limited Imaging Schedule Routine , Read Routine (OP Routine) with inconclusive viability, single or unspecified fetus Expected: 10/14/2023, Expires: 09/30/2024 documented as of this encounter Procedures Procedure Name Priority Date/Time Associated Diagnosis Comments US OB LIMITED Schedule Routine, Read Routine (OP Routine) 09/30/2023 1:26 PM FISHER DIVER NET with inconclusive viability, single or unspecified fetus documented in this encounter Results * US Ob Limited (09/30/2023 1:26 PM FISHER DIVER NET) Anatomical Region Laterality Modality Abdomen N/A Ultrasound 09/30/2023 1:26 PM FISHER DIVER NET Impressions 09/30/2023 2:14 PM FISHER DIVER NET Intrauterine gestational sac with embryo with cardiac activity which is 48 bpm today. ??Yolk sac appears enlarged. ??We discussed the scan in detail today and the inconsistency with prior dating. ??There is progression today. however, so we will look again in 10-14 days to assess viability. ?? Narrative Procedure Note Lisa Smith MD - 09/30/2023 IMPRESSION: Intrauterine gestational sac with embryo with cardiac activity which is 48bpm today. Yolk sac appears enlarged. We discussed the scan in detailtoday and the inconsistency with prior dating. There is progressiontoday. however, so we will look again in 10-14 days to assess viability. us Susana Briceño MD IMG OB US PROCEDURES Final Re sult documented in this encounter Visit Diagnoses Diagnosis with inconclusive viability, single or unspecified fetus documented in this encounter Care Teams Sales Lead Relationship Specialty Start Date End Date Brian Velarde DO [address] [place] [address] PCP - General Family Practice 07/25/20 documented as of this encounter
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
--- OUTSIDE RECORDS SUMMARY | 2024-09-18 05:14 | XMS_ITS | Referral Summary ---
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 PM CDT from Last 3 Months Results * (ABNORMAL) POCT urinalysis (Clinitek) (07/05/2024 7:33 PM CDT) Color, ur, POC Yellow Yellow Clarity, UA, POC Cloudy(A) Clear [facility] Glucose, ur, POC Negative Negative [facility] Bilirubin, ur, POC Negative Negative [facility] Ketones, ur, POC Negative Negative [facility] Specific gravity, ur, POC 1.025 1.010 - 1.025 [facility] Blood, ur, POC Negative Negative [facility] BJ pH, ur, POC 7.5 [facility] Comment: Interpretive Data Urine pH is affected by diet, medications, systemic acid-base disturbances, and renal tubular function. pH may affect urinary stone formation. For example, urine pH below 6.0 may help reduce the tendency for calcium phosphate stones and pH greater than 6.0 may reduce the tendency for uric acid stone formation. Source: [employer]. Last Revised Date: 09-30-2017 Protein, ur, POC Negative Negative [facility] Urobilinogen, ur, POC 1.0 mg/dL mg/dL [facility] Nitrites, ur, POC Negative Negative [facility] Leukocyte esterase, ur, POC Negative Negative [facility] Urine 07/05/2024 7:33 PM CDT 07/05/2024 7:33 PM CDT us Nedra Vázquez MD LAB POCT ORDERABLES - DE VICE Final Result [facility] Department [place] [address] from Last 3 Months Insurance [facility] WORKERS COMPENSATION GENERIC Advance Directives For more information, please contact: [phone] * Full Code (Latest Code Status on File) Date Activated Date Inactivated Comments 06/25/2020 8:18 PM 06/26/2020 8:16 PM * Full Code Date Activated Date Inactivated Comments 06/25/2020 8:18 PM 06/25/2020 8:18 PM * Full Code Date Activated Date Inactivated Comments 12/01/2018 6:36 PM 12/02/2018 5:01 PM Care Teams Commodity Industry Analyst Relationship Specialty Start Date End Date Brian Velarde DO [address] [place] [address] PCP - General Family Practice 07/25/20
--- OUTSIDE RECORDS SUMMARY | 2024-09-18 05:14 | XMS_ITS | Encounter Summary ---
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 (DM) 10/21: LM to Schedule.. (DM) SPINNER SPINNER documented in this encounter Plan of Treatment Upcoming Encounters Date Type Department Care Team (Late st Contact Info) Description 11/19/2024 Hospital Encounter [facility] 1 [place] [address] Gal Bass MD [address] [facility] [phone] [place] [address] documented as of this encounter Visit Diagnoses Not on filedocumented in this encounter Care Teams Fisher Diving Relationship Specialty Start Date End Date Brian Velarde DO [address] [place] [address] PCP - General Family Practice 07/25/20 documented as of this encounter
--- OUTSIDE RECORDS SUMMARY | 2024-09-18 05:14 | XMS_ITS | Encounter Summary ---
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 female with PUL. Quant with appropriate rise, will repeat in 1 week. Plan: Problem of Unknown Anatomic Location Telephone Number Relationship maeverton Murphy [phone] (home) Home Yes [phone] Self Yes [] PUL Card Given Working Diagnosis: PUL Date presented: 03/16/24 Brief HPI: 28 y.o. at approximately 6w2d presented with abdominal pain on 03/15 and was found to have a PUL. H/o 2 prior medically managed R ectopics. Ultrasound: No GS seen, no IUP on TVUS 03/15: 178.0 03/17: 470; called pt with results left VM Rh Status: A Positive [] Rhogam Given Beta Trend: Lab Results Component Value Date HCG 178.0 (H) 03/15/2024 HCG 4,558.0 (H) [...] (H) 12/04/2020 HCG 38.0 (H) 11/29/2020 HCG 909520.0 (H) 08/28/2016 PLAN Next beta due: 03/17 Contraception: NA [] Signed out with attending and okay to remove from beta book. Attending Name: documented in this encounter Plan of Treatment Upcoming Encounters Date Type Department Care Team (Late st Contact Info) Description 11/19/2024 Hospital Encounter [address] [address] Gal Bass MD [address] [facility] [phone] [place] [address] documented as of this encounter Visit Diagnoses Not on filedocumented in this encounter Care Teams Career Development Manager Relationship Specialty Start Date End Date Brian Velarde DO [address] [place] [address] PCP - General Family Practice 07/25/20 documented as of this encounter
--- OUTSIDE RECORDS SUMMARY | 2024-09-18 05:14 | XMS_ITS | Encounter Summary ---
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 female with IUP Plan: Problem of Unknown Anatomic Location Telephone Number Shorty Murphy [phone] (home) Home Yes [phone] Self Yes [] PUL Card Given Working [...] increase 03/24: called pt, will present to [facility] 03/27: Left VM 03/30: 22,093, [...] (H) 12/04/2020 HCG 38.0 (H) 11/29/2020 HCG 526844.0 (H) 08/28/2016 PLAN Next beta due: IOB visit taked Contraception: NA [x] Signed out with attending and okay to remove from beta book. Attending Name: Sowmya documented in this encounter Plan of Treatment Upcoming Encounters Date Type Department Care Team (Late st Contact Info) Description 11/19/2024 Hospital Encounter [address] [phone] Gal Bass MD [address] [facility] [phone] [place] [address] documented as of this encounter Visit Diagnoses Not on filedocumented in this encounter Care Teams Ballistics Teacher Relationship Specialty Start Date End Date Brian Velarde DO [address] [place] [address] PCP - General Family Practice 07/25/20 documented as of this encounter
--- OUTSIDE RECORDS SUMMARY | 2024-09-18 05:14 | XMS_ITS | Encounter Summary ---
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 Gender Identity Not on file Sexual Orientation Not on file 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 Not on file Not on file Not on file documented as of this encounter Plan of Treatment Upcoming Encounters Date Type Department Care Team (Late st Contact Info) Description 11/19/2024 Hospital Encounter [facility] 1 [place] [address] Gal Bass MD [address] [facility] [phone] [place] [address] documented as of this encounter Visit Diagnoses Not on filedocumented in this encounter Care Teams Production Internship Relationship Specialty Start Date End Date Brian Velarde DO [address] [place] [address] PCP - General Family Practice 07/25/20 documented as of this encounter
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
--- OUTSIDE RECORDS SUMMARY | 2024-09-18 05:14 | XMS_ITS | Encounter Summary ---
Author Organization [facility] Healthcare Address [address] [place] [address] Care Team Providers Care Timber Trimmer Name Role Phone Brian Velarde Primary Care Provider + Encounter Details Date Type Department Care Team (Late st Contact Info) Description 03/24/2024 Telephone [facility] 1 [place] [address] Danielle Manuel MD [address] 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 female with PUL. Plan: Problem of Unknown Anatomic Location Telephone Number Shorty Murphy [phone] (home) Home Yes [phone] Self Yes [] PUL Card Given Working Diagnosis: PUL Date presented: 03/24/24 Brief HPI: 28 y.o. at approximately 6w2d [...] increase 03/24: called pt, will present to [facility] Rh Status: A Positive [] Rhogam Given [...] (H) 12/04/2020 HCG 38.0 (H) 11/29/2020 HCG 369926.0 (H) 08/28/2016 PLAN Next beta due: 03/24 Contraception: NA [] Signed out with attending and okay to remove from beta book. Attending Name: documented in this encounter Plan of Treatment Upcoming Encounters Date Type Department Care Team (Late st Contact Info) Description 11/19/2024 Hospital Encounter [address] [address] Gal Bass MD [address] [facility] [place] [place] [phone] [place] [address] documented as of this encounter Visit Diagnoses Not on filedocumented in this encounter Care Teams Timber Trimmer Relationship Specialty Start Date End Date Brian Velarde DO [address] [place] [address] PCP - General Family Practice 07/25/20 documented as of this encounter
--- OUTSIDE RECORDS SUMMARY | 2024-09-18 05:14 | XMS_ITS | Encounter Summary ---
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 presented abdominal pain on 03/15 and was found to have a PUL. H/o 2 prior medically managed R ectopics. Plan: Problem of Unknown Anatomic Location Telephone Number Relationship Voicemail Katherine [phone] (home) Home Yes [phone] Self Yes [] PUL Card Given Working Diagnosis: PUL Date presented: 03/20/24 Brief HPI: 28 y.o. at approximately 6w2d presented with abdominal pain on 03/15 and was found to have a PUL. H/o 2 prior medically managed R ectopics. Ultrasound: No GS seen, no IUP on TVUS 03/15: 178.0 03/17: 470; called pt with results left VM 03/20: Called pt to get repeat beta edmund, left VM. Rh Status: A Positive [] Rhogam Given Beta Trend: Lab Results Component Value Date HCG 470.0 (H) 03/17/2024 HCG 178.0 (H) [...] (H) 12/04/2020 HCG 38.0 (H) 11/29/2020 HCG 275423.0 (H) 08/28/2016 PLAN Next beta due: beta edmund Contraception: NA [] Signed out with attending and okay to remove from beta book. Attending Name: documented in this encounter Plan of Treatment Upcoming Encounters Date Type Department Care Team (Late st Contact Info) Description 11/19/2024 Hospital Encounter [facility] 1 [place] [address] Gal Bass MD [address] [facility] [place] [phone] [place] [address] documented as of this encounter Visit Diagnoses Not on filedocumented in this encounter Care Teams Branch General Manager Relationship Specialty Start Date End Date Brian Velarde DO [address] [place] [address] PCP - General Family Practice 07/25/20 documented as of this encounter
--- OUTSIDE RECORDS SUMMARY | 2024-09-18 05:14 | XMS_ITS | Encounter Summary ---
Author Organization [facility] Address [address] [place] [address] Phone Care Team Providers Care Supervisory Air Intercept Controller Name Role Phone Brian Velarde DO Primary Care Provider + Encounter Details Date Type Department Care Team (Late st Contact Info) Description 11/02[facility]20[facility] [address] [facility] Outpatient Health 7th Floor [address] [place] [address] Vivian Joshua, BS Social History Tobacco Use Types Packs/Day Years [...] on file 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 Fragoso that we are unable to contact patient.....cag 10/27: 2nd attempt...LM to schedule.. (DM) 10/21: LM to Schedule.. (DM) with inconclusive viability, single or unspecified fetus LMP: 08/04/2023 WILLIE: 05/10/2024 Time Frame 7-13wks (Limited)(09/22-11/03/2023) PRESSROOM WORKER documented in this encounter Plan of Treatment Upcoming Encounters Date Type Department Care Team (Late st Contact Info) Description 11/19/2024 Hospital Encounter [facility] 1 [place] [address] Gal Bass MD [address] [facility] [phone] [place] [address] documented as of this encounter Visit Diagnoses Not on filedocumented in this encounter Care Teams Supervisory Air Intercept Controller Relationship Specialty Start Date End Date Brian Velarde DO [address] [place] [address] PCP - General Family Practice 07/25/20 documented as of this encounter
--- OUTSIDE RECORDS SUMMARY | 2024-09-18 05:14 | XMS_ITS | Encounter Summary ---
Author Organization [facility] Healthcare Address [address] [place] [address] Care Team Providers Care Senior Inspector Name Role Phone Brian Velarde Primary Care Provider + Encounter Details Date Type Department Care Team (Late st Contact Info) Description 04/03/2024 Telephone [facility] [address] 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 US appointment cancelled per Dr. Gonzalez after pt seen in [facility] confirmed. RN attempted to schedule RN IOB while talking with pt, call was disconnect. RN attempted to call pt back, call went to voicemail and message left. documented in this encounter Plan of Treatment Upcoming Encounters Date Type Department Care Team (Late st Contact Info) Description 11/19/2024 Hospital Encounter [address] [address] Gal Bass MD [address] [facility] [phone] [place] [address] documented as of this encounter Visit Diagnoses Not on filedocumented in this encounter Care Teams Senior Inspector Relationship Specialty Start Date End Date Brian Velarde DO [address] [place] [address] PCP - General Family Practice 07/25/20 documented as of this encounter
--- OUTSIDE RECORDS SUMMARY | 2024-09-18 05:14 | XMS_ITS | Encounter Summary ---
Author Organization [facility] Healthcare Address [address] [place] [address] Care Team Providers Care Executive Community Planning Name Role Phone Brian Velarde DO Primary Care Provider + Encounter Details Date Type Department Care Team (Late st Contact Info) Description 03/21/2024 Telephone [facility] [address] [facility] Health 3rd Floor [address] [place] [address] Ni Bonilla RN Social History [...] Telephone Encounter - Ni Bonilla RN - 03/21/2024 12:53 PM CDT RN attempted to call pt for IOB after seen in [facility]. No answer by pt, generic message left. documented in this encounter Plan of Treatment Upcoming Encounters Date Type Department Care Team (Late st Contact Info) Description 11/19/2024 Hospital Encounter [facility] 1 [place] [address] Gal Bass MD [address] [facility] [phone] [place] [address] documented as of this encounter Visit Diagnoses Not on filedocumented in this encounter Care Teams Executive Community Planning Relationship Specialty Start Date End Date Brian Velarde DO [address] [place] [address] PCP - General Family Practice 07/25/20 documented as of this encounter
--- OUTSIDE RECORDS SUMMARY | 2024-09-18 05:14 | XMS_ITS | Encounter Summary ---
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 No answer by pt, generic message left. ITAL ATTENDANT documented in this encounter Plan of Treatment Upcoming Encounters Date Type Department Care Team (Late st Contact Info) Description 11/19/2024 Hospital Encounter [facility] 1 [place] [address] Gal Bass MD [address] [facility] [phone] [place] [address] documented as of this encounter Visit Diagnoses Not on filedocumented in this encounter Care Teams Cloth Winder Relationship Specialty Start Date End Date Brian Velarde DO [address] [place] [address] PCP - General Family Practice 07/25/20 documented as of this encounter
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
--- OUTSIDE RECORDS SUMMARY | 2024-09-18 05:14 | XMS_ITS | Encounter Summary ---
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 female with PUL Plan: Problem of Unknown Anatomic Location Telephone Number Shorty Murphy [phone] (home) Home Yes [phone] Self Yes [] PUL Card Given Working [...] increase 03/24: called pt, will present to [facility] [place] 03/27: Left VM Rh Status: A Positive [] [...] (H) 12/04/2020 HCG 38.0 (H) 11/29/2020 HCG 997505.0 (H) 08/28/2016 PLAN Next beta due: 03/24 Contraception: NA [] Signed out with attending and okay to remove from beta book. Attending Name: documented in this encounter Plan of Treatment Upcoming Encounters Date Type Department Care Team (Late st Contact Info) Description 11/19/2024 Hospital Encounter [facility] 1 [place] [address] Gal Bass MD [address] [facility] [phone] [place] [address] documented as of this encounter Visit Diagnoses Not on filedocumented in this encounter Care Teams Director Professional Services Relationship Specialty Start Date End Date Brian Velarde DO [address] [place] [address] PCP - General Family Practice 07/25/20 documented as of this encounter
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
--- OUTSIDE RECORDS SUMMARY | 2024-09-18 05:15 | XMS_ITS | Encounter Summary ---
Author Organization [facility] Healthcare Address [address] [place] [address] Care Team Providers Care Track Manager Name Role Phone Brian Velarde Primary Care Provider + Encounter Details Date Type Department Care Team (Late st Contact Info) Description 09/25/2022 Telephone [facility] 1 [place] [phone] Reyna Carlos MD [address] [facility] [address] [facility] [address] [place], [place] [id number] Social History Tobacco Use Types Packs/Day Years Used Date Smoking Tobacco: Every Day Cigarettes 0.2 17 Started: 2007 Smokeless Tobacco: Never Alcohol Use Standard Drinks/Week Comments Yes 3 (1 standard drink = 0.6 oz pur e alcohol) occasional AUDIT-C Answer Date Recorded Q1: How often do you have a drink containing alcohol? 2-4 times a month 09/26/2022 Q2: How many drinks containi ng alcohol do you have on a typical day when you are drinking? Patient does not drink Q3: How often do you have si x or more drinks on one occasion? 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 LVM. Reyna Carlos MD F CREATIVE OFFICER documented in this encounter Plan of Treatment Upcoming Encounters Date Type Department Care Team (Late st Contact Info) Description 11/19/2024 Hospital Encounter 1 [place] [address] Gal Bass MD [address] [facility] [phone] [place] [address] documented as of this encounter Visit Diagnoses Not on filedocumented in this encounter Care Teams Track Manager Relationship Specialty Start Date End Date Brian Velarde DO [address] [place] [address] PCP - General Family Practice 07/25/20 documented as of this encounter
--- OUTSIDE RECORDS SUMMARY | 2024-09-18 05:15 | XMS_ITS | Encounter Summary ---
Author Organization [facility] Healthcare Address [address] [place] [address] Care Team Providers Care Surveyor Mine Name Role Phone Brian Velarde DO Primary Care Provider + Encounter Details Date Type Department Care Team (Late st Contact Info) Description 10/13/2022 Telephone [facility] 1 [place] [address] Izabela Ortiz MD [address] [facility] [address] [address] Social History Tobacco Use Types Packs/Day Years [...] on file Legal Sex Female 11:21 AM PRECISION ASSEMBLY INSPECTOR Gender Identity Not on file Sexual Orientation Not on file 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 Patient reports she will present later tonight for labs.No questions or concerns at this time. Izabela Gonzalez MD ISION ASSEMBLY INSPECTOR documented in this encounter Plan of Treatment Upcoming Encounters Date Type Department Care Team (Late st Contact Info) Description 11/19/[address] [facility] 1 [place] [address] Gal Bass MD [address] [phone] [place] [address] documented as of this encounter Visit Diagnoses Not on filedocumented in this encounter Care Teams Surveyor Mine Relationship Specialty Start Date End Date Brian Velarde DO [address] [place] [address] PCP - General Family Practice 07/25/20 documented as of this encounter
--- OUTSIDE RECORDS SUMMARY | 2024-09-18 05:15 | XMS_ITS | Encounter Summary ---
Author Organization [facility] Healthcare Address [address] [place] [address] Care Team Providers Care Registry Np Name Role Phone Brian Velarde DO Primary Care Provider + Encounter Details Date Type Department Care Team (Late st Contact Info) Description 11/02/2022 Telephone [facility] 1 [place] [address] Izabela Ortiz MD [address] 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 Left voicemail. Izabela Gonzalez MD H LOOM WEAVER documented in this encounter Plan of Treatment Upcoming Encounters Date Type Department Care Team (Late st Contact Info) Description 11/19/2024 Hospital Encounter [facility] 1 [place] [address] Gal Bass MD [address] [facility] [phone] [place] [address] documented as of this encounter Visit Diagnoses Not on filedocumented in this encounter Care Teams Registry Np Relationship Specialty Start Date End Date Brian Velarde DO [address] [place] [address] PCP - General Family Practice 07/25/20 documented as of this encounter
--- OUTSIDE RECORDS SUMMARY | 2024-09-18 05:15 | XMS_ITS | Encounter Summary ---
Author Organization [facility] Medical Group Address [address] [place] [address] Care Team Providers Care Laborer Orchard Name Role Phone Brian Velarde Primary Care Provider + Encounter Details Date Type Department Care Team (Late st Contact Info) Description 04/02/2023 Orders Only [facility] [address] 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 Not on file Not on file Not on file documented as of this encounter Plan of Treatment Upcoming Encounters Date Type Department Care Team (Late st Contact Info) Description 11/19/2024 Hospital Encounter [facility] 1 [place] [address] Gal Bass MD [address] [phone] [place] [address] documented as of this encounter Visit Diagnoses Not on filedocumented in this encounter Care Teams Laborer Orchard Relationship Specialty Start Date End Date Brian Velarde DO [address] [place] [address] PCP - General Family Practice 07/25/20 documented as of this encounter
--- OUTSIDE RECORDS SUMMARY | 2024-09-18 05:15 | XMS_ITS | Encounter Summary ---
Author Organization 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 Not on file Not on file Not on file documented as of this encounter Last Filed Vital Signs Vital Sign Reading Time Taken Comments Blood Pressure 119/64 09/30/2022 8:17 PM SERVICE DEVELOPER Pulse 100 09/30/2022 8:17 PM SERVICE DEVELOPER Temperature 37.4 ??C (99.3 ??F) 09/30/2022 8:17 PM CS T Respiratory Rate 18 09/30/2022 8:17 PM SERVICE DEVELOPER Oxygen Saturation 100% 09/30/2022 8:17 PM SERVICE DEVELOPER Inhaled Oxygen Concentration - - Weight - - Height - - Body Mass Index - - documented in this encounter Medications at Time of Discharge acetaminophen (TYLENOL) 500 mg tablet Take 1 tablet (500 mg total) by mouth every 6 (six) hours as needed for pain 30 tablet 09/24/2022 ibuprofen (ADVIL,MOTRIN) 600 mg tablet Take 1 tablet (600 mg total) by mouth 4 (four) times a day as needed for pain (pain) 90 tablet 09/24/2022 3 lidocaine jelly (XYLOCAINE) 2 % Apply topically as needed for pain (discomfort) Please use prescriber name Gal Bass MD given Tahmina Bergeron cannot prescribe for [place] Medicaid 45 mL 1 09/21/2022 3 21-iron fu-folic acid ( Complete) 14 mg [...] documented in this encounter H&P Notes * Shakila Soot MD - 09/30/2022 9:23 PM CST R3 EVS ATTENDANT Brief Note 26 y.o at 7w0d by LMP with history of prior R sided ectopic , currently being followed in beta book for right sided possibly cornual ectopic who presents for D#11 b-hCG. S/p 2-dose MTX regimen on 09/20 & 09/24. b-hCG trend 9606 (Day4, 09/24) > 8401 (09/26, Day 6) > 8468 (Day 7, 09/27). Received 3rd dose of MTX on 09/27 after plateau in b- hCG drom Day 6 yo 7 and inappropriate decrease b/w day 4 & 7. B-hCG downtrending to 6,661, appropriate decrease (21%). Plan to repeat next b- hCG on day 14 (10/03). Dr. Felix updated and aware Shakila Soto MD PGY-3, Obstetrics & Gynecology ICE DEVELOPER documented in this encounter Nursing Notes * Tammy Davis RN - 09/30/2022 9:25 PM CST Patient presented to [facility] for lab draw. Patient had results given to her. Patient was told to returnS for repeat lab draw around the same time as today. Patient understands AVS and was dc'd home. ICE DEVELOPER documented in this encounter Plan of Treatment Upcoming Encounters Date Type Department Care Team (Late st Contact Info) Description 11/19/2024 Hospital Encounter [facility] 1 [place] [address] Gal Bass MD [address] [facility] [phone] [place] [address] documented as of this encounter Procedures Procedure Name Priority Date/Time Associated Diagnosis Comments HCG, BLOOD, QUANTITATIVE STAT 09/30/2022 8:12 PM SERVICE DEVELOPER documented in this encounter Results * (ABNORMAL) hCG, blood, quantitative (09/30/2022 8:12 PM SERVICE DEVELOPER) hCG, quant 6,661.0(H ) 0.0 - 5.0 IUnits/L [facility] Comment: Interpretive Data: Male: ??<5.0 IUnits/L Non- Female: <5.0 IUnits/L Female: ??3 weeks: ??5.8 - 71.2 ??4 weeks: ??9.5 - 750 ??5 weeks: ??217 - 7138 ??6 weeks: ??158 - 69841 ??7 weeks: ??7777 - 400609 ??8 weeks: ??87272 - 622172 ??9 weeks: ??39504 - 415620 ??10 weeks: 21851 - 248868 ??12 weeks: 74372 - 131626 ??14 weeks: [address] - [address] ??15 weeks: [address]1544 - [address]27[address] ??16 weeks: 0640 - 81994 ??17 weeks: 4765 - 71645 ??18 weeks: 6822 - 88387 All results should be interpreted in context of clinical presentations as rare causes of falsely positive and falsely negative results are known to exist. The Kirill hCG Beta Quant assay procedure was used. Results from different manufacturers or methods may not be comparable. Serial testing should be performed using the same method. Current interpretive data was last revised 22. Blood 09/30/2022 8:12 PM SERVICE DEVELOPER 09/30/2022 8:29 PM SERVICE DEVELOPER us Daysi Felix MD LAB BLOOD ORDERABLES Fi nal Result [facility] Department [place] [address] documented in this encounter Visit Diagnoses Not on filedocumented in this encounter Orders Discharge Count Last Ordered Date First Orde red Date DISCHARGE PATIENT 1 09/30/2022 documented in this encounter Care Teams Sprayer Hand Relationship Specialty Start Date End Date Brian Velarde DO [address] [place] [address] PCP - General Family Practice 07/25/20 documented as of this encounter
--- OUTSIDE RECORDS SUMMARY | 2024-09-18 05:15 | XMS_ITS | Encounter Summary ---
Author Organization [facility] Medical Group Address [address] [place] [address] Care Team Providers Care Intrusion Analyst Name Role Phone Brian Velarde Primary Care Provider + Encounter Details Date Type Department Care Team (Late st Contact Info) Description 03/31/2023 Telephone [facility] [address] [place] [address] Claudio Castano DO [address] [place], [place] [id number] Social History Tobacco Use Types Packs/Day Years [...] you feel afraid or unsafe? 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 Not on file Not on file Not on file documented as of this encounter Plan of Treatment Upcoming Encounters Date Type Department Care Team (Late st Contact Info) Description 11/19/2024 Hospital Encounter [facility] 1 [place] [address] Gal Bass MD [address] [facility] [phone] [place] [address] documented as of this encounter Visit Diagnoses Not on filedocumented in this encounter Care Teams Intrusion Analyst Relationship Specialty Start Date End Date Brian Velarde DO [address] [place] [address] PCP - General Family Practice 07/25/20 documented as of this encounter
--- OUTSIDE RECORDS SUMMARY | 2024-09-18 05:15 | XMS_ITS | Encounter Summary ---
Author Organization [facility] Healthcare Address [address] [place] [address] Care Team Providers Care Court Liaison Name Role Phone Brian Velarde DO Primary Care Provider + Encounter Details Date Type Department Care Team (Latest Contact Info) Description 10/16/2022 3:46 PM SHELL PLATER - 10/16/2022 4:55 PM SHELL PLATER Hospital Encounter [address] [phone] Gal Bass MD [address] [facility] [place] [phone] [place] [address] Discharge Disposition: Discharge to home or self [...] on file Legal Sex Female 11:21 AM SHELL PLATER Gender Identity Not on file Sexual Orientation [...] prescriber name Gal Bass MD given Tahmina Elyssa cannot prescribe for [place] Medicaid 45 mL 1 09/21/2022 3 21-iron [...] or self care documented in this encounter Nursing Notes * Jane Coreas, RN - 10/16/2022 4:48 PM CST Pt came in for beta HCG lab draw, vss, 116/78, 90, 36.9, 100% on RA MD will call her with results. Pt denies pain or bleeding. Pt did express a concern that she thought she may have a UTI. POCT urinedone, results all within normal range. L PLATER documented in this encounter Plan of Treatment Upcoming Encounters Date Type Department Care Team (Late st Contact Info) Description 11/19/2024 Hospital Encounter [facility] [address] [place] [address] Gal Bass MD [address] [phone] [place] [address] documented as of this encounter Procedures Procedure Name Priority Date/Time Associated Diagnosis Comments POCT URINALYSIS DIPSTICK Routine 10/16/2022 4:53 PM SHELL PLATER HCG, BLOOD, QUANTITATIVE STAT 10/16/2022 4:42 PM SHELL PLATER documented in this encounter Results * POCT urinalysis dipstick (10/16/2022 4:53 PM SHELL PLATER) Color, Urine, POC Yellow Clarity, ur, POC Clear Clear Glucose, ur, POC Negative Negative MG/DL Bilirubin, ur, POC Negative Negative, Small, Moderate, Large Ketones, ur, POC Negative Negative Specific [place], POC 1.010 1.005 - 1.030 Blood, ur, POC Negative Negative pH, ur, POC 7.0 5.0 - 8.0 Protein, ur, POC Negative Negative Urobilinogen, urine, POC 0.2 0.2 - 1.0 mg/dL Nitrite, ur, POC Negative Negative Leukocytes, ur, POC Negative Negative Lot Number [id number] Urine 10/16/2022 4:53 PM SHELL PLATER Candida Javier MD POINT OF CARE TEST O JEN Final Result * (ABNORMAL) hCG, blood, quantitative (10/16/2022 4:42 PM SHELL PLATER) hCG, quant 1,426.0(H ) 0.0 - 5.0 IUnits/L JANNY JERONIMO Comment: Interpretive Data: Male: ??<5.0 IUnits/L Non- Female: <5.0 IUnits/L Female: ??3 weeks: ??5.8 - 71.2 ??4 weeks: ??9.5 - 750 ??5 weeks: ??217 - 7138 ??6 weeks: ??158 - 59855 ??7 weeks: ??4027 - 465490 ??8 weeks: ??46376 - 403291 ??9 weeks: ??04974 - 456040 ??10 weeks: 13332 - 842055 ??12 weeks: 41935 - 938342 ??14 weeks: 40390 - 18108 ??15 weeks: 20355 - 66307 ??16 weeks: 9840 - 57872 ??17 weeks: 1652 - 53678 ??18 weeks: 2799 - 10059 All results should be interpreted in context of clinical presentations as rare causes of falsely positive and falsely negative results are known to exist. The Kirill hCG Beta Quant assay procedure was used. Results from different manufacturers or methods may not be comparable. Serial testing should be performed using the same method. Current interpretive data was last revised 22. Blood 10/16/2022 4:42 PM SHELL PLATER 10/16/2022 4:58 PM SHELL PLATER us Hilda Rayo RN DIGESTIVE LAB BLOOD ORDERABLES Fin al Result [facility] Department [place] [address] documented in this encounter Visit Diagnoses Not on filedocumented in this encounter Care Teams Court Liaison Relationship Specialty Start Date End Date Brian Velarde DO [address] [place] [address] PCP - General Family Practice 07/25/20 documented as of this encounter
--- OUTSIDE RECORDS SUMMARY | 2024-09-18 05:15 | XMS_ITS | Encounter Summary ---
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 LVM Reyna Carlos MD H OBSERVATIONS CHIEF SCIENTIST documented in this encounter Plan of Treatment Upcoming Encounters Date Type Department Care Team (Late st Contact Info) Description 11/19/2024 Hospital Encounter [facility] 1 [place] [address] Gal Bass MD [address] [facility] [phone] [place] [address] documented as of this encounter Visit Diagnoses Not on filedocumented in this encounter Care Teams Turkey Cleaner Relationship Specialty Start Date End Date Brian Velarde DO [address] [place] [address] PCP - General Family Practice 07/25/20 documented as of this encounter
--- OUTSIDE RECORDS SUMMARY | 2024-09-18 05:15 | XMS_ITS | Encounter Summary ---
Author Organization [facility] Address [address] [facility] [address] [place] [address] Care Team Providers Care Crusher Foreman Name Role Phone Brian Velarde Primary Care Provider + Encounter Details Date Type Department Care Team (Late st Contact Info) Description 02/03/2023 Telephone [facility] [address] 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 Not on file Not on file Not on file documented as of this encounter Miscellaneous Notes * Telephone Encounter - Claudio Castano DO - 02/04/2023 8:03 AM CDT I sent you a communication * Telephone Encounter - Mallorie Salazar - 02/03/2023 10:39 AM CDT Please see email from [employer] documented in this encounter Plan of Treatment Upcoming Encounters Date Type Department Care Team (Late st Contact Info) Description 11/19/2024 Hospital Encounter [facility] 1 [place] [address] Gal Bass MD [address] [facility] [phone] [place] [address] documented as of this encounter Visit Diagnoses Not on filedocumented in this encounter Care Teams Crusher Foreman Relationship Specialty Start Date End Date Brian Velarde DO [address] [place] [address] PCP - General Family Practice 07/25/20 documented as of this encounter
--- OUTSIDE RECORDS SUMMARY | 2024-09-18 05:15 | XMS_ITS | Encounter Summary ---
Author Organization [facility] Healthcare Address [address] [place] [address] Care Team Providers Care Electronic Development Technician Name Role Phone Brian Velarde DO Primary Care Provider + Encounter Details Date Type Department Care Team (Late Contact Info) Description 09/24/2022 12:30 PM CIGARETTE ROLLER Ancillary Procedure [address] [place] [address] Social History Tobacco Use Types Packs/Day Years Used Date Smoking Tobacco: Every Day Cigarettes 0.2 17 Started: 2007 Smokeless Tobacco: Never Alcohol Use Standard Drinks/Week Comments Yes 3 (1 standard drink = 0.6 oz pur e alcohol) occasional AUDIT-C Answer Date Recorded Q1: How often do you have a drink containing alc ohol? 2-4 times a month 09/24/2022 Q2: How many drinks containi ng alcohol do you have on a typical day when you are drinking? 3 or 4 09/24/2022 Q3: How often do you have si x or more drinks on one occasion? 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 Not on file Not on file Not on file documented as of this encounter Plan of Treatment Upcoming Encounters Date Type Department Care Team (Late st Contact Info) Description 11/19/2024 Hospital Encounter [address] [phone] Gal Bass MD [address] [phone] [place] [address] documented as of this encounter Procedures Procedure Name Priority Date/Time Associated Diagnosis Comments US PELVIS COMPLETE IP Routine 09/24/2022 12 :38 PM CIGARETTE ROLLER documented in this encounter Results * US Pelvis Complete (09/24/2022 12:38 PM CIGARETTE ROLLER) Endometrial Thickness 6.0 mm&millime ters VIEWPOINT Anatomical Region Laterality Modality Pelvis N/A Ultrasound 09/24/2022 12:3 9 PM CIGARETTE ROLLER Impressions 09/24/2022 3:21 PM CIGARETTE ROLLER The uterus is anteverted and normal in size and morphology. ??An intrauterine is not visualized, but there is concern for an ectopic in the right interstitial area. ??Normal sized, and morphologically normal appearing ovaries were found in each adnexa with a corpus luteum cyst noted in the right ovary. There was no evidence of other pelvic masses. ??There is a small amount of free fluid in the posterior cul-de-sac. ??Sonographic findings discussed with Dr. Vance. Narrative Procedure Note Tala Vernon MD - 09/24/2022 IMPRESSION: The uterus is anteverted and normal in size and morphology. Anintrauterine is not visualized, but there is concern for anectopic in the right interstitial area. Normal sized, andmorphologically normal appearing ovaries were found in each adnexa with acorpus luteum cyst noted in the right ovary. There was no evidence ofother pelvic masses. There is a small amount of free fluid in theposterior cul-de-sac. Sonographic findings discussed with Dr. Vance. us Hilda Rayo MICROSOFT DYNAMICS DEVELOPER IMG US PROCEDURES Final Result documented in this encounter Visit Diagnoses Not on filedocumented in this encounter Care Teams Electronic Development Technician Relationship Specialty Start Date End Date Brian Velarde DO [address] [place] [address] PCP - General Family Practice 07/25/20 documented as of this encounter
--- OUTSIDE RECORDS SUMMARY | 2024-09-18 05:15 | XMS_ITS | Encounter Summary ---
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 No pain, bleeding and changing pad around every 6hours. Reyna Carlos MD ER TECH documented in this encounter Plan of Treatment Upcoming Encounters Date Type Department Care Team (Late st Contact Info) Description 11/19/2024 Hospital Encounter [facility] 1 [place] [address] Gal Bass MD [address] [facility] [phone] [place] [address] documented as of this encounter Visit Diagnoses Not on filedocumented in this encounter Care Teams Supply Technician Relationship Specialty Start Date End Date Brian Velarde DO [address] [place] [address] PCP - General Family Practice 07/25/20 documented as of this encounter
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
--- OUTSIDE RECORDS SUMMARY | 2024-09-18 05:15 | XMS_ITS | Encounter Summary ---
Author Organization [facility] Address [address] [place] [address] Phone Care Team Providers Care Naturopathic Oncology Provider Name Role Phone Brian Velarde DO Primary Care Provider + Encounter Details Date Type Department Care Team (Late st Contact Info) Description 11/24/2022 Telephone [facility] Orthopaedic Surgery [address] [place] [address] Mookie Frank MD [address] [place] [address] Social History Tobacco Use Types Packs/Day Years [...] on file 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 Frank is recommending for the patient to return back to work with the following restrictions. No lifting no more than 5 pounds with left hand and no typing with left hand. Recommending assistive device for typing, dication (speech to text). 11/24/22- I left a message for the patient to call to discuss. 11/25/22- I left the patient another message to discuss 11/26/22- I sent a portal message to the patient with the recommendations. ELECTRONICS ENGINEER ELECTRONICS ENGINEER documented in this encounter Plan of Treatment Upcoming Encounters Date Type Department Care Team (Late st Contact Info) Description 11/19/2024 Hospital Encounter [facility] [address] [place] [address] Gal Bass MD [address] [facility] [phone] [place] [address] documented as of this encounter Visit Diagnoses Not on filedocumented in this encounter Care Teams Naturopathic Oncology Provider Relationship Specialty Start Date End Date Brina Velarde DO [address] [place] [address] PCP - General Family Practice 07/25/20 documented as of this encounter
--- OUTSIDE RECORDS SUMMARY | 2024-09-18 05:15 | XMS_ITS | Encounter Summary ---
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 Patient did not pick you, unable to leave voicemail. Patient was sent a certified letter and removed from beta book. Discussed with Dr. Saravanan Gonzalez MD UNTING DIRECTOR documented in this encounter Plan of Treatment Upcoming Encounters Date Type Department Care Team (Late st Contact Info) Description 11/19/2024 Hospital Encounter [facility] 1 [place] [address] Gal Bass MD [address] [facility] [phone] [place] [address] documented as of this encounter Visit Diagnoses Not on filedocumented in this encounter Care Teams Parts Sales Manager Relationship Specialty Start Date End Date Brian Velarde DO [address] [place] [address] PCP - General Family Practice 07/25/20 documented as of this encounter
--- OUTSIDE RECORDS SUMMARY | 2024-09-18 05:15 | XMS_ITS | Encounter Summary ---
Author Organization [facility] Address [address] [place] [address] Care Team Providers Care Dairy Inspector Name Role Phone Brian Velarde Primary Care Provider + Encounter Details Date Type Department Care Team (Late st Contact Info) Description 02/04/2023 Orders Only [facility] [address] [place] [address] Claudio Castano DO [address] [place], [place] [id number] Social History Tobacco Use Types Packs/Day Years [...] on file 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 Gender Identity Not on file Sexual Orientation Not on file 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 Not on file Not on file Not on file documented as of this encounter Plan of Treatment Upcoming Encounters Date Type Department Care Team (Late st Contact Info) Description 11/19/2024 Hospital Encounter [facility] [address] [place] [address] Gal Bass MD [address] [phone] [place] [address] documented as of this encounter Visit Diagnoses Not on filedocumented in this encounter Care Teams Dairy Inspector Relationship Specialty Start Date End Date Brian Velarde DO [address] [place] [address] PCP - General Family Practice 07/25/20 documented as of this encounter
--- OUTSIDE RECORDS SUMMARY | 2024-09-18 05:15 | XMS_ITS | Encounter Summary ---
Author Organization [facility] Healthcare Address [address] [place] [address] Care Team Providers Care Tour Escort Name Role Phone Maggiedeejay Brian Eldridge Primary Care Provider + Reason for Referral * Diagnostic Imaging (Routine) - Closed Specialty Diagnoses / Procedures Referred By Christina diana Referred To Contact Diagnoses with inconclusive viability, single or unspecified fetus Procedures US Ob Limited Susana Briceño MD Phone: tel: fax: [address] [phone] Referral ID Status Reason Start Date Expiration Date Visits Re quested Visits Authorized [id number] Closed 09/15/2023 10/14/2024 1 1 S PROMOTION DIRECTOR Encounter Details Date Type Department Care Team (Latest Contact Info) Description 09/15/2023 3:26 PM SALES PROMOTION DIRECTOR - 09/15/2023 6:17 PM SALES PROMOTION DIRECTOR Hospital Encounter [address] [phone] Daily Rodas MD [address] [facility] [phone] [place] [address] Acute hypokalemia (Primary Dx); with inconclusive viability, single or unspecified fetus [...] on file Legal Sex Female 11:21 AM SALES PROMOTION DIRECTOR Gender Identity Not on file Sexual Orientation Not on file 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 Not on file Not on file Not on file documented as of this encounter Last Filed Vital Signs Vital Sign Reading Time Taken Comments Blood Pressure 119/67 09/15/2023 3:34 PM SALES PROMOTION DIRECTOR Pulse 91 09/15/2023 3:34 PM SALES PROMOTION DIRECTOR Temperature 36.9 ??C (98.4 ??F) 09/15/2023 3:34 PM CS T Respiratory Rate 18 09/15/2023 3:34 PM SALES PROMOTION DIRECTOR Oxygen Saturation 100% 09/15/2023 3:33 PM SALES PROMOTION DIRECTOR Inhaled Oxygen Concentration - - Weight 83.5 kg (184 lb) 09/15/2023 3:34 PM SALES PROMOTION DIRECTOR Height 154.9 cm (5' 1 ) 09/15/2023 3:34 PM SALES PROMOTION DIRECTOR Body Mass Index 34.77 09/15/2023 3:34 PM SALES PROMOTION DIRECTOR documented in this encounter Medications at Time [...] documented in this encounter H&P Notes * Susana Briceño MD - 09/15/2023 5:23 PM CST Images from the original note were not included. Gynecology Consult Note [id number] HPI: 27 y.o. with PMH significant for two prior R ectopic pregnancies treated with methotrexate , nicotine use presents with abdominal cramping. Patient notes the onset of cramping two days ago, has been having more crampiness/sharp pains on the right. No vaginal bleeding. Denies nausea/vomiting. Has an unsure LMP as bleeding has been irregular since her last ectopic (10/2022, interstitial ectopic) but her last bleeding was in July. Her first positive test was last week. This is a desired . Past Medical History: Diagnosis Date Anxiety Depression Past Surgical History: Procedure Laterality Date ARM SURGERY Left 06/2020 [facility] HOME MEDICATIONS : acetaminophen (TYLENOL) 500 mg tablet gabapentin (NEURONTIN) 300 mg capsule lidocaine (GLYDO) 2 % jelly in applicator ondansetron ODT (ZOFRAN-ODT) 4 mg disintegrating tablet valACYclovir (VALTREX) 1 gram tablet OB History Para Term AB Living 6 1 1 0 3 1 SAB IAB Ectopic Multiple Live Births 2 0 1 0 1 SET UP WORKER History: No LMP recorded. Patient is . Menses: irregular since last ectopic Pap History: Normal pap smear STD History: No Contraception: Attempting conception Family History Problem Relation Age of Onset Depression Mother Schizophrenia Neg Hx Bipolar disorder Neg Hx Addiction problem Neg Hx Suicide Attempts Neg Hx Anesthesia problems Neg Hx Stroke Neg Hx Social History Tobacco Use Smoking status: Every Day Packs/day: .15 Types: Cigarettes Start date: 2007 Smokeless tobacco: Never Tobacco comments: Pt denies previously charted tobacco use-chiku Substance and Sexual Activity Drug use: Not Currently Types: Marijuana Comment: edible thc Sexual activity: Yes Alcohol Use: Not At Risk (09/30/2022) AUDIT-C Frequency of Alcohol Consumption: Never Average Number of Drinks: Patient does not drink Frequency of Binge Drinking: Never Recent Concern: Alcohol Use - Alcohol Misuse (09/26/2022) AUDIT-C Frequency of Alcohol Consumption: 2-4 times a month Average Number of Drinks: Patient does not drink Frequency of Binge Drinking: Less than monthly Physical Exam: Temp: [36.9 ??C (98.4 ??F)] 36.9 ??C (98.4 ??F) Pulse: [89-91] 91 Resp: [18] 18 BP: (119)/(67) 119/67 General: NAD, mood appropriate Pulmonary: non-labored Cardiovascular: Regular rate and rhythm Abdomen: soft, non-tender, non-distended, without rebound or guarding Extremities: Warm and well perfused GENITAL EXAM: Deferred Recent Labs Lab Units 09/15/23 1601 WBC K/cumm 7.5 HEMOGLOBIN g/dL 11.2* HEMATOCRIT % 34.6* PLATELETS K/cumm 328 Imaging: BSUS 09/15: Normal uterus with IUP (GS+YS) Left adnexa: Normal L ovary Right adnexa: R ovary with 2cm hemorrhagic cyst versus CL Fluid in Cul-de-sac: none Assessment and Plan 27 y.o. presents with IUP #Early IUP -GS, YS visualized inside the uterus. US otherwise notable for R ovary with 2cm hemorrhagic cyst versus CL -This is a desired -Would recommend starting PNV -Patient plans to received care at [facility], tasked for viability scan and IOB -Gave patient ED precautions and miscarriage precautions. Would recommend patient return if she develops significant vaginal bleeding or abdominal pain. Patient phone number for follow up: [phone] D/w Dr. Macias. Please call SET UP WORKER phone with any questions or concerns, . Susana Briceño MD Motor Vehicle Dispatcher PGY-4 Cosigned by Pennie Macias MD at 09/15/2023 10:20 PM SALES PROMOTION DIRECTOR S PROMOTION DIRECTOR S PROMOTION DIRECTOR Associated attestation - Pennie Macias MD - 09/15/2023 10:20 PM SALES PROMOTION DIRECTOR Resident physician Dr. Briceño saw and examined the patient, we discussed her findings, and I am inagreement with the plan based on our discussion. The patient presented with +UPT given her history of ectopic . She was asymptomatic. BSUS was performed and images were reviewed together. The patient has an early IUP, so the decision was made to discharge her home with follow up in clinic to establish care and have formal US performed. I did not personally examine the patient. Pennie Macias MD documented in this encounter Nursing Notes * Allie Harris RN - 09/15/2023 6:15 PM CST Patient seen in the [facility] with concerns for ectopic . The patient states she recently had HCG quant with unknown results and is now experiencing cramping similar to the pain she had in the past with her ectopic pregnancies. The patient denies VB or LOF. The patient assessed by Green team. Patient with IUP and discharged home with return precautions and instructions to keep OB appointments. The patient reminded of safe medications in . Patient discharged home. Allie Harris RN S PROMOTION DIRECTOR documented in this encounter Plan of Treatment Upcoming Encounters Date Type Department Care Team (Late st Contact Info) Description 11/19/2024 Hospital Encounter [facility] 1 [place] [address] Gal Bass MD [address] [facility] [phone] [place] [address] documented as of this encounter Procedures Procedure Name Priority Date/Time Associated Diagnosis Comments EGFR STAT 09/15/2023 4:01 PM SALES PROMOTION DIRECTOR CBC WITHOUT DIFFERENTIAL STAT 09/15/2023 4:01 PM SALES PROMOTION DIRECTOR TYPE AND SCREEN STAT 09/15/2023 4:01 PM SALES PROMOTION DIRECTOR HCG, BLOOD, QUANTITATIVE STAT 09/15/2023 4:01 PM SALES PROMOTION DIRECTOR COMPREHENSIVE METABOLIC PANEL STAT 09/15/2023 4:01 PM SALES PROMOTION DIRECTOR POCT HCG, URINE Routine 09/15/2023 3:48 PM SALES PROMOTION DIRECTOR documented in this encounter Results * US Ob Limited (09/30/2023 1:26 PM SALES PROMOTION DIRECTOR) Anatomical Region Laterality Modality Abdomen N/A Ultrasound 09/30/2023 1:26 PM SALES PROMOTION DIRECTOR Impressions 09/30/2023 2:14 PM SALES PROMOTION DIRECTOR Intrauterine gestational sac with embryo with cardiac [...] IMG OB US PROCEDURES Final Re sult * eGFR (09/15/2023 4:01 PM SALES PROMOTION DIRECTOR) eGFR >90 >=60 mL/min/1. 73 m2 JANNY JERONIMO Comment: Interpretive Data Reference Interval Normal ?>/= [...] interpretive data was last reviewed 2021. Blood 09/15/2023 4:01 PM SALES PROMOTION DIRECTOR 09/15/2023 4:09 PM SALES PROMOTION DIRECTOR us Daily Rodas MD LAB BLOOD ORDERABLES Final Result [facility] One [facility] Department of Laboratories [place], [place] [id number] * (ABNORMAL) hCG, blood, quantitative (09/15/2023 4:01 PM SALES PROMOTION DIRECTOR) hCG, quant 4,558.0(H ) 0.0 - 5.0 IUnits/L JANNY JERONIMO Comment: Interpretive Data: Male: ??<5.0 IUnits/L Non- Female: <5.0 IUnits/L Female: ??3 weeks: ??5.8 - 71.2 ??4 weeks: ??9.5 - 750 ??5 weeks: ??916 - 4347 ??6 weeks: ??875 - 64668 ??7 weeks: ??0885 - 162537 ??8 weeks: ??20654 - 559441 ??9 weeks: ??22186 - 985460 ??10 weeks: 22076 - 114532 ??12 weeks: 56666 - 085141 ??14 weeks: 06558 - 32926 ??15 weeks: 50913 - 15690 ??16 weeks: 6740 - 95626 ??17 weeks: 5275 - 16268 ??18 weeks: 0623 - 15564 All results should be interpreted in context of clinical presentations as rare causes of falsely positive and falsely negative results are known to exist. The Kirill hCG Beta Quant assay procedure was used. Results from different manufacturers or methods may not be comparable. Serial testing should be performed using the same method. Current interpretive data was last revised 22. Blood 09/15/2023 4:01 PM SALES PROMOTION DIRECTOR 09/15/2023 4:09 PM SALES PROMOTION DIRECTOR Daily Rodas MD LAB BLOOD ORDERABLES Final Result [facility] One [facility] Department [place] [address] * Comprehensive metabolic panel (09/15/2023 4:01 PM SALES PROMOTION DIRECTOR) [facility] Sodium 137 135 - 145 mmol/L [facility] Potassium, pl 3.8 3.3 - 4.9 mmol/L [facility] Chloride 104 97 - 110 mmol/L [facility] CO2 22 22 - 32 mmol/L [facility] Anion gap 11 2 - 15 mmol/L [facility] BUN 8 6 - 25 mg/dL [facility] Creatinine 0.73 0.60 - 1.10 mg/dL [facility] Glucose 96 70 - 199 mg/dL [facility] Comment: Interpretive Data Fasting glucose >/= [...] interpretive data was last revised 2022. Calcium 8.9 8.5 - 10.3 mg/dL [facility] Bilirubin, total 0.2 0.1 - 1.2 mg/dL [facility] Protein, pl 7.2 6.5 - 8.5 g/dL [facility] Albumin 3.9 3.5 - 5.0 g/dL [facility] Alk phos 53 40 - 130 Units/L [facility] ALT 12 7 - 45 Units/L [facility] AST 16 10 - 45 Units/L [facility] Blood 09/15/2023 4:01 PM SALES PROMOTION DIRECTOR 09/15/2023 4:09 PM SALES PROMOTION DIRECTOR Daily Rodas MD LAB BLOOD ORDERABLES Final Result Performing Organization Address City/[facility] [address]/[facility] Co de Phone Number [facility] Department [place] [place] [address] * Type and screen (09/15/2023 4:01 PM SALES PROMOTION DIRECTOR) Pathologist [facility] Ha, indirect Negative ABO Rh A Positive [facility] Blood 09/15/2023 4:01 PM SALES PROMOTION DIRECTOR 09/15/2023 4:09 PM SALES PROMOTION DIRECTOR Daily Rodas MD LAB BLOOD BANK TEST ORDERABLES Final Result [facility] [place] [employer] [address] * (ABNORMAL) CBC without differential (09/15/2023 4:01 PM SALES PROMOTION DIRECTOR) WBC 7.5 3.8 - 9.9 K/cumm [facility] Hgb 11.2(L) 11.9 - 15.5 g/dL [facility] Hct 34.6(L) 35.6 - 45.5 % [facility] Plt 328 150 - 400 K/cumm [facility] MPV 11.0 9.1 - 12.3 fL [facility] RBC 4.20 3.90 - 5.20 M/cumm [facility] MCV 82.4 81.3 - 96.4 fL [facility] MCH 26.7(L) 27.1 - 33.3 pg [facility] MCHC 32.4 32.3 - 35.7 g/dL [facility] RDW CV 15.0(H) 11.1 - 14.9 % [facility] RDW SD 45.1 35.7 - 48.1 fL [facility] NRBC abs 0.00 0.00 - 0.01 K/cumm [facility] Blood 09/15/2023 4:01 PM SALES PROMOTION DIRECTOR 09/15/2023 4:09 PM SALES PROMOTION DIRECTOR Daily Rodas MD LAB BLOOD ORDERABLES Final Result [facility] Department [place] [address] * (ABNORMAL) POCT hCG, urine (09/15/2023 3:48 PM SALES PROMOTION DIRECTOR) HCG, ur, POC Positive(A) Negative Lot Number [id number] QC Backgroud Clear Acceptable QC Control Line Acceptable Urine 09/15/2023 3:48 PM SALES PROMOTION DIRECTOR Daily Rodas MD POINT OF CARE TEST O RDERABLES Final Result documented in this encounter Visit Diagnoses Diagnosis Acute hypokalemia- Primary Hypopotassemia with inconclusive viability, single or unspecified fetus with inconclusive viability, single or unspecified fetus documented in this encounter Orders Nursing Count Last Ordered Date First Orde red Date VITAL SIGNS 1 09/15/2023 Discharge Count Last Ordered Date First Orde red Date DISCHARGE PATIENT 1 09/15/2023 documented in this encounter Care Teams Tour Escort Relationship Specialty Start Date End Date Brian Velarde DO [address] [place] [address] PCP - General Family Practice 07/25/20 documented as of this encounter
--- OUTSIDE RECORDS SUMMARY | 2024-09-18 05:15 | XMS_ITS | Encounter Summary ---
Author Organization [facility] Healthcare Address [address] [place] [address] Care Team Providers Care Surveillance Operator Name Role Phone Brian Velarde Primary Care Provider + Encounter Details Date Type Department Care Team (Late st Contact Info) Description 09/23/2022 Telephone [facility] 1 [place] [phone] Reyna Carlos MD [address] [facility] 3 [facility] [address] [place], [place] [phone] Social History Tobacco Use Types Packs/Day Years [...] on file Legal Sex Female 11:21 AM ARCHIVES SPECIALIST Gender Identity Not on file Sexual Orientation Not on file 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 [facility] Reyna Carlos MD IVES SPECIALIST documented in this encounter Plan of Treatment Upcoming Encounters Date Type Department Care Team (Late st Contact Info) Description 11/19/2024 Hospital Encounter [facility] 1 [place] [address] Gal Bass MD [address] [facility] [phone] [place] [address] documented as of this encounter Visit Diagnoses Not on filedocumented in this encounter Care Teams Surveillance Operator Relationship Specialty Start Date End Date Brian Velarde DO [address] [place] [address] PCP - General Family Practice 07/25/20 documented as of this encounter
--- OUTSIDE RECORDS SUMMARY | 2024-09-18 05:15 | XMS_ITS | Encounter Summary ---
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 female with R cornual ectopic vs interstitial tubal ectopics/p dose #2 methotrexate 09/24. Called patient to check in and assess symptoms. Patient states that overall cramping pain is stable, intermittant 8/10 cramping pain that is worse at night. However, she reports new R sided pelvic pressure when taking deep breaths or with movement. States that it's not overly painful but that sheis worried in light of counseling she received on 09/24 regarding risk of ectopic rupture. States vaginal bleeding is small in volume, not saturating a pad and stable from prior. Denies lightheadedness/dizziness. Also reports persistent nausea and low appetite since receiving methotrexate but has notvomited and is tolerating PO intake. Patient is worried about risk of ectopic rupture and desires inpatient admission for observation. Plan: Problem of Unknown Anatomic Location Telephone Number Relationship maeverton Murphy [phone] (home) Home Yes [phone] [place] Yes [x] PUL Card Given Working Diagnosis: PUL Date presented: 09/21/22 Brief HPI: 26 y.o. at approx 4w5d hx ectopic presents with cramping found to havePUL. 09/20: Presented to [facility] with light vaginal bleeding/continued R-sided cramping. [facility]. Empty uterus on US, possible R-sided adnexal mass. Given 1st dose MTX on 09/21. Plan to give 2nd/ dose 09/24. 09/24: Formal US: Ectopic seen in interstitial area of R adnexa, c/f cornual ectopic versus interstitial tubal ectopic. D#4 [facility] [phone] from 6961. Patient strongly counseled on recommendation for dx lsc and possible wedge resection, patient declined. Dose #2 of methotrexate administered. 09/26: Called to check in. Patient overall feels stable but reporting new R sided pelvic pressure with deep breaths/movement. Ultrasound: 09/11: Normal appearing anteverted uterus with trilaminar stripe, empty Left ovary normal, no masses, normal flow Right adnexa with concerning mass with mixed echogenicity and peripheral flow, unable to definitively separate from adjacent ovary and in some view appears to be contiguous with ovary. Concerning butnot definitive for R ectopic Small amount of [...] R interstitial area. Small amount of free fluidin posterior cul-de-sac. Normal sized, morphologically normal appearing ovaries bilaterally with corpus luteum cyst noted in R ovary. Rh Status: A Positive [] Rhogam Given Beta Trend: Lab Results Component Value Date HCG 6,961.0 (H) 09/20/2022 HCG 2,554.0 (H) 09/13/2022 HCG 1,649.0 (H) 09/11/2022 HCG 455.1 (H) 09/08/2022 HCG 251.9 (H) 09/05/2021 HCG 1,472.1 (H) 08/31/2021 HCG 5,483.7 (H) 08/28/2021 HCG 6,942.1 (H) 08/27/2021 HCG 7,623.8 (H) 08/24/2021 HCG 5,304.9 (H) 08/21/2021 HCG 3,218.4 (H) 08/19/2021 HCG 6.0 (H) 12/04/2020 HCG 38.0 (H) 11/29/2020 HCG 627261.0 (H) 08/28/2016 PLAN Next beta due: 09/27 for D#7 s/p 2 doses of methotrexate Contraception: attempting conception Recommended patient present to [facility] for evaluation given new R sided pelvic pressure. Patient strongly desiring inpatient admission for observation due to risk of ectopic rupture. Will evaluate patient in [facility] and determine plan pending evaluation. [] Signed out with attending and okay to remove from beta book. Attending Name: OLOGY CT TECHNOLOGIST documented in this encounter Plan of Treatment Upcoming Encounters Date Type Department Care Team (Late st Contact Info) Description 11/19/2024 Hospital Encounter [facility] 1 [place] [address] Gal Bass MD [address] [facility] [phone] [place] [address] documented as of this encounter Visit Diagnoses Not on filedocumented in this encounter Care Teams Software Solutions Architect Relationship Specialty Start Date End Date Brain Velarde DO [address] [place] [address] PCP - General Family Practice 07/25/20 documented as of this encounter
--- OUTSIDE RECORDS SUMMARY | 2024-09-18 05:15 | XMS_ITS | Encounter Summary ---
Author Organization [facility] Healthcare Address [address] [place] [address] Care Team Providers Care Sas Administrator Name Role Phone Brian Velarde DO Primary Care Provider + Encounter Details Date Type Department Care Team (Late st Contact Info) Description 10/01/[address] [facility] 1 [place] [address] Reyna Carlos MD [address] 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 LVM. Reyna Carlos MD DRAWING MACHINE OPERATOR documented in this encounter Plan of Treatment Upcoming Encounters Date Type Department Care Team (Late st Contact Info) Description 11/19/2024 Hospital Encounter [facility] 1 [place] [address] Gal Bass MD [address] [facility] [phone] [place] [address] documented as of this encounter Visit Diagnoses Not on filedocumented in this encounter Care Teams Sas Administrator Relationship Specialty Start Date End Date Brian Velarde DO [address] [place] [address] PCP - General Family Practice 07/25/20 documented as of this encounter
--- OUTSIDE RECORDS SUMMARY | 2024-09-18 05:15 | XMS_ITS | Encounter Summary ---
Author Organization [facility] Healthcare Address [address] [place] [address] Care Team Providers Care Geographical Historian Name Role Phone Brian Velarde DO Primary Care Provider + Encounter Details Date Type Department Care Team (Late st Contact Info) Description 10/16/2022 Telephone [facility] 1 [place] [address] Izabela Ortiz MD [address] [facility] [address] [address] Social History Tobacco Use Types Packs/Day Years [...] on file Legal Sex Female 11:21 AM MUSIC EDUCATOR Gender Identity Not on file Sexual Orientation Not on file 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 Izabela Gonzalez MD C EDUCATOR documented in this encounter Plan of Treatment Upcoming Encounters Date Type Department Care Team (Late st Contact Info) Description 11/19/2024 Hospital Encounter [facility] 1 [place] [address] Gal Bass MD [address] [facility] [phone] [place] [address] documented as of this encounter Visit Diagnoses Not on filedocumented in this encounter Care Teams Geographical Historian Relationship Specialty Start Date End Date Brian Velarde DO [address] [place] [address] PCP - General Family Practice 07/25/20 documented as of this encounter
--- OUTSIDE RECORDS SUMMARY | 2024-09-18 05:15 | XMS_ITS | Encounter Summary ---
Author Organization [facility] Medical [facility] Address [address] [place] [address] Care Team Providers Care Lace Roller Name Role Phone Brian Velarde Primary Care Provider + Encounter Details Date Type Department Care Team (Late st Contact Info) Description 03/31/2023 Orders Only [facility] [address] [place] [address] Claudio Castano DO [address] [place], [place] [id number] Social History Tobacco Use Types Packs/Day Years [...] on file Legal Sex Female 11:21 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 Gender Identity Not on file Sexual Orientation Not on file 

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
--- OUTSIDE RECORDS SUMMARY | 2024-09-18 05:15 | XMS_ITS | Encounter Summary ---
Author Organization [facility] Healthcare Address [address] [place] [address] Care Team Providers Care Undertaker Helper Name Role Phone Brian Velarde Primary Care Provider + Reason for Visit * Reason Onset Date Comments Telehealth 09/18/2022 Encounter Details Date Type Department Care Team (Late st Contact Info) Description 09/18/2022 Documentation [facility] 1 [place] [address] Hina Goodson MD [address] [address] Telehealth Social History Tobacco Use Types Packs/Day Years [...] on file Legal Sex Female 11:21 AM E BUSINESS PROJECT MANAGER Gender Identity Not on file Sexual Orientation Not on file 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 Carlos's call. Reports she is doing well today. Denies abdominal pain or vaginal bleeding. Reports vomiting and diarrhea x1 day that has now resolved. Discussed warning signs for ectopic , instructed to presents to ED or WAC if symptoms appear. Confirmed formal US scheduled 09/30. All questions answered. Hina Goodson MD E BUSINESS PROJECT MANAGER documented in this encounter Plan of Treatment Upcoming Encounters Date Type Department Care Team (Late st Contact Info) Description 11/19/2024 Hospital Encounter [facility] 1 [place] [address] Gal Bass MD [address] [facility] [phone] [place] [address] documented as of this encounter Visit Diagnoses Not on filedocumented in this encounter Care Teams Undertaker Helper Relationship Specialty Start Date End Date Brian Velarde DO [address] [place] [address] PCP - General Family Practice 07/25/20 documented as of this encounter
--- OUTSIDE RECORDS SUMMARY | 2024-09-18 05:15 | XMS_ITS | Encounter Summary ---
Author Organization [facility] Healthcare Address [address] [place] [address] Care Team Providers Care Production Lapping Machine Operator Name Role Phone Brian Velarde DO Primary Care Provider + Encounter Details Date Type Department Care Team (Late st Contact Info) Description 10/19/2022 Telephone [facility] 1 [place] [address] Izabela Ortiz MD [address] [facility] [address] [address] Social History Tobacco Use Types Packs/Day Years [...] on file Legal Sex Female 11:21 AM TRANSPORTATION DESIGN ENGINEER Gender Identity Not on file Sexual Orientation Not on file 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 Patient to present for next lab draw on 10/23. No questions or concerns. Izabela Gonzalez MD SPORTATION DESIGN ENGINEER documented in this encounter Plan of Treatment Upcoming Encounters Date Type Department Care Team (Late st Contact Info) Description 11/19/2024 Hospital Encounter [facility] 1 [place] [address] Gal Bass MD [address] [facility] [phone] [place] [address] documented as of this encounter Visit Diagnoses Not on filedocumented in this encounter Care Teams Production Lapping Machine Operator Relationship Specialty Start Date End Date Brian Velarde DO [address] [place] [address] PCP - General Family Practice 07/25/20 documented as of this encounter
--- OUTSIDE RECORDS SUMMARY | 2024-09-18 05:15 | XMS_ITS | Encounter Summary ---
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 Last beta was 1426 on 10/16. Pt answered phone but after introducing myself she hung up before we could discuss lab draw. Will attempt again later. Ana Cristina Fernandez MD PHONE ORDER DISPATCHER documented in this encounter Plan of Treatment Upcoming Encounters Date Type Department Care Team (Late st Contact Info) Description 11/19/2024 Hospital Encounter [facility] 1 [place] [address] Gal Bass MD [address] [facility] [phone] [place] [address] documented as of this encounter Visit Diagnoses Not on filedocumented in this encounter Care Teams Ticket Marker Relationship Specialty Start Date End Date Brian Velarde DO [address] [place] [address] PCP - General Family Practice 07/25/20 documented as of this encounter
--- OUTSIDE RECORDS SUMMARY | 2024-09-18 05:15 | XMS_ITS | Encounter Summary ---
Author Organization [facility] Healthcare Address [address] [place] [address] Care Team Providers Care Merchandise Appraiser Name Role Phone Brian Velarde DO Primary Care Provider + Encounter Details Date Type Department Care Team (Late st Contact Info) Description 10/12/2022 Telephone [facility] 1 [place] [address] Izabela Ortiz MD [address] 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 Patient reports she did not have a ride on Wednesday but will be coming [facility] the [facility] this afternoon. Izabela Gonzalez MD S FLOOR TEAM MEMBER documented in this encounter Plan of Treatment Upcoming Encounters Date Type Department Care Team (Late st Contact Info) Description 11/19/2024 Hospital Encounter [facility] 1 [place] [address] Gal Bass MD [address] [facility] [phone] [place] [address] documented as of this encounter Visit Diagnoses Not on filedocumented in this encounter Care Teams Merchandise Appraiser Relationship Specialty Start Date End Date Brian Velarde DO [address] [place] [address] PCP - General Family Practice 07/25/20 documented as of this encounter
--- OUTSIDE RECORDS SUMMARY | 2024-09-18 05:15 | XMS_ITS | Encounter Summary ---
Author Organization [facility] Medical Group Address [address] [facility] [address] [facility] [address] [place] [address] Care Team Providers Care Knitted Garment Finisher Name Role Phone Brian Velarde Primary Care Provider + Encounter Details Date Type Department Care Team (Late st Contact Info) Description 02/09/2023 Orders Only [facility] [address] [place] [address] Claudio Castano DO [address] [place] [address] Social History Tobacco Use Types Packs/Day Years [...] file Legal Sex Female 11:21 AM HOSPITAL STAFF PHARMACIST Gender Identity Not on file Sexual Orientation Not on file 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 Not on file Not on file Not on file documented as of this encounter Plan of Treatment Upcoming Encounters Date Type Department Care Team (Late st Contact Info) Description 11/19/2024 Hospital Encounter [facility] 1 [place] [address] Gal Bass MD [address] [phone] [place] [address] documented as of this encounter Visit Diagnoses Not on filedocumented in this encounter Care Teams Knitted Garment Finisher Relationship Specialty Start Date End Date Brian Velarde DO [address] [place] [address] PCP - General Family Practice 07/25/20 documented as of this encounter
--- OUTSIDE RECORDS SUMMARY | 2024-09-18 05:15 | XMS_ITS | Encounter Summary ---
Author Organization [facility] Healthcare Address [address] [place] [address] Care Team Providers Care Procurement Cost Coordinator Name Role Phone Brian Velarde DO Primary Care Provider + Encounter Details Date Type Department Care Team (Late st Contact Info) Description 09/13/2022 Orders Only Obstetrics and Gynecology Clinic [address] [facility][1] 3rd Floor [address] [place] [address] Brittany Canales MD [address] [facility] [address] [place] [address] of unknown anatomic location (Primary Dx) Social History Tobacco Use Types Packs/Day Years [...] on file Legal Sex Female 11:21 AM LITHOGRAPHIC PLATE MAKER Gender Identity Not on file Sexual Orientation Not on file 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 Not on file Not on file Not on file documented as of this encounter Plan of Treatment Upcoming Encounters Date Type Department Care Team (Late st Contact Info) Description 11/19/2024 Hospital Encounter [facility] 1 [place] [address] Gal Bass MD [address] [facility] [phone] [place] [address] documented as of this encounter Visit Diagnoses Diagnosis of unknown anatomic location- Primary documented in this encounter Care Teams Procurement Cost Coordinator Relationship Specialty Start Date End Date Brian Velarde DO [address] [place] [address] PCP - General Family Practice 07/25/20 documented as of this encounter
--- OUTSIDE RECORDS SUMMARY | 2024-09-18 05:15 | XMS_ITS | Encounter Summary ---
Author Organization [facility] Healthcare Address [address] [place] [address] Care Team Providers Care Special Delivery Worker Name Role Phone Brian Velarde DO Primary Care Provider + Encounter Details Date Type Department Care Team (Late st Contact Info) Description 10/09/2022 Telephone [facility] 1 [place] [address] Izabela Ortiz MD [address] [facility] [address] [id number] Social History Tobacco Use Types Packs/Day Years [...] on file Legal Sex Female 11:21 AM MANAGER AIR Gender Identity Not on file Sexual Orientation Not on file 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 Patient reports she will present. Izabela Gonzalez MD GER [employer] documented in this encounter Plan of Treatment Upcoming Encounters Date Type Department Care Team (Late st Contact Info) Description 11/19/2024 Hospital Encounter [facility] 1 [place] [address] Gal Bass MD [address] [facility] [phone] [place] [address] documented as of this encounter Visit Diagnoses Not on filedocumented in this encounter Care Teams Special Delivery Worker Relationship Specialty Start Date End Date Brian Velarde DO [address] [place] [address] PCP - General Family Practice 07/25/20 documented as of this encounter
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
--- OUTSIDE RECORDS SUMMARY | 2024-09-18 05:15 | XMS_ITS | Encounter Summary ---
Author Organization [facility] Healthcare Address [address] [place] [address] Care Team Providers Care Credit Verification Clerk Name Role Phone Brian Velarde Primary Care Provider + Encounter Details Date Type Department Care Team (Late st Contact Info) Description 10/03/2022 3:32 PM HEATING AND REFRIGERATION INSPECTOR - 10/03/2022 4:08 PM HEATING AND REFRIGERATION INSPECTOR Hospital Encounter [address] [phone] Nedra Vázquez MD [address] [place] [id number] Discharge Disposition: Discharge to home or self [...] on file Legal Sex Female 11:21 AM HEATING AND REFRIGERATION INSPECTOR Gender Identity Not on file Sexual Orientation Not on file 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 Not on file Not on file Not on file documented as of this encounter Last Filed Vital Signs Vital Sign Reading Time Taken Comments Blood Pressure 115/70 10/03/2022 3:51 PM HEATING AND REFRIGERATION INSPECTOR Pulse 81 10/03/2022 3:51 PM HEATING AND REFRIGERATION INSPECTOR Temperature 36.9 ??C (98.4 ??F) 10/03/2022 3:51 PM CS T Respiratory Rate 16 10/03/2022 3:51 PM HEATING AND REFRIGERATION INSPECTOR Oxygen Saturation 99% 10/03/2022 3:51 PM HEATING AND REFRIGERATION INSPECTOR Inhaled Oxygen Concentration - - Weight - [...] documented in this encounter Progress Notes * Hina Goodson MD - 10/03/2022 4:08 PM CST Update Note 26 y.o at 7w0d by LMP with R sided interstitial ectopic currently being managed with multidose MTX, most recently s/p 3rd dose MTX on 09/27. She presents today for D#14 b-hCG. Doing well today without complaints. She is unable to stay for lab result due to her husbands birthday. Most recent bHCG downtrending from 8,468>6,661. Understanding that pending her bHCG she may need to return. Verbalized understanding. ADDENDUM bHCG downtrending 6,661>3,308 (decrease by 50.3%). Communicated results with patient. For repeatbHCG 10/10. Hina Goodson MD ING AND REFRIGERATION INSPECTOR documented in this encounter Nursing Notes * Jane Coreas, RN - 10/03/2022 3:55 PM CST Pt came into [facility] for beta HCG blood draw. VSS and pt denies any pain. Dr. Kurt Carbajal at the bedsideto assess pt. Labs sent and pt stated she would like to leave, pt and her spouse have birthday plans. Pt would like to be called for results. Dr. Carbajal aware and in agreement. ING AND REFRIGERATION INSPECTOR documented in this encounter Plan of Treatment Upcoming Encounters Date Type Department Care Team (Late st Contact Info) Description 11/19/2024 Hospital Encounter [facility] [address] [place] [address] Gal Bass MD [address] [facility] [phone] [place] [address] documented as of this encounter Procedures Procedure Name Priority Date/Time Associated Diagnosis Comments HCG, BLOOD, QUANTITATIVE Routine 10/03/2022 3:54 PM HEATING AND REFRIGERATION INSPECTOR documented in this encounter Results * (ABNORMAL) hCG, blood, quantitative (10/03/2022 3:54 PM HEATING AND REFRIGERATION INSPECTOR) hCG, quant 3,308.0(H ) 0.0 - 5.0 IUnits/L JANNY AZAR Comment: Interpretive Data: Male: ??<5.0 IUnits/L Non- Female: <5.0 IUnits/L Female: ??3 weeks: ??5.8 - 71.2 ??4 weeks: ??9.5 - 750 ??5 weeks: ??217 - 7138 ??6 weeks: ??158 - 60234 ??7 weeks: ??8437 - 696009 ??8 weeks: ??34776 - 388483 ??9 weeks: ??36315 - 344487 ??10 weeks: 36504 - 161833 ??12 weeks: 47526 - 946574 ??14 weeks: 86000 - 61355 ??15 weeks: 68436 - 32396 ??16 weeks: 7140 - 90060 ??17 weeks: 1937 - 32298 ??18 weeks: 2769 - 06787 All results should be interpreted in context of clinical presentations as rare causes of falsely positive and falsely negative results are known to exist. The Kirill hCG Beta Quant assay procedure was used. Results from different manufacturers or methods may not be comparable. Serial testing should be performed using the same method. Current interpretive data was last revised 22. Blood 10/03/2022 3:54 PM HEATING AND REFRIGERATION INSPECTOR 10/03/2022 4:01 PM HEATING AND REFRIGERATION INSPECTOR us Mona Joseph THERMOMETER MAKER LAB BLOOD ORDERABLES Final R esult JANNY JERONIMO [facility] Department [place] [address] documented in this encounter Visit Diagnoses Not on filedocumented in this encounter Care Teams Credit Verification Clerk Relationship Specialty Start Date End Date Brian Velarde DO [address] [place] [address] PCP - General Family Practice 07/25/20 documented as of this encounter
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
--- OUTSIDE RECORDS SUMMARY | 2024-09-18 05:15 | XMS_ITS | Encounter Summary ---
Author Organization [facility] Healthcare Address [address] [place] [address] Care Team Providers Care Metal Framer Name Role Phone Brian Velarde DO Primary Care Provider + Encounter Details Date Type Department Care Team (Late st Contact Info) Description 09/27/[address] 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 M Reyna Carlos MD 09/27/2022 RVISOR GARMENT MANUFACTURING documented in this encounter Plan of Treatment Upcoming Encounters Date Type Department Care Team (Late st Contact Info) Description 11/19/2024 Hospital Encounter [facility] [address] [place] [address] Gal Bass MD [address] [facility] [phone] [place] [address] documented as of this encounter Visit Diagnoses Not on filedocumented in this encounter Care Teams Metal Framer Relationship Specialty Start Date End Date Brian Velarde DO [address] [place] [address] PCP - General Family Practice 07/25/20 documented as of this encounter
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
--- OUTSIDE RECORDS SUMMARY | 2024-09-18 05:15 | XMS_ITS | Encounter Summary ---
Author Organization [facility] Address [address] [place] [address] Phone Care Team Providers Care Customer Relations Coordinator Name Role Phone Brian Velarde DO Primary Care Provider + Reason for Visit * Reason Comments Follow-up Encounter Details Date Type Department Care Team (Late st Contact Info) Description 11/23/2022 12:30 PM ASSISTANT PROSECUTING ATTORNEY Office Visit [facility] Orthopaedic Surgery [address] [place] [address] Mookie Frank MD [address] 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 She is still struggling to get into hand therapy due to insurance issues. She continues to have stiffness in her ring and small fingers due to clawing and then subsequent contracture. PHYSICAL EXAMINATION GENERAL: This is a well- developed, well nourished age appropriate patient in no acute distress. The patient is alert and oriented x3. Pleasant and cooperative. PSYCHIATRIC: Mood is euthymic. Affect appears appropriate. EYES: Anicteric sclera. Extraocular movements appear intact. EAR, NOSE, THROAT: Hearing is intact to the spoken word. Nares are patent with no drainage. RESPIRATORY: There is equal chest rise on inspection. Breathing is non-labored with no audible wheezing. CARDIOVASCULAR: Radial pulses are 2+ and symmetrical. There is no upper extremity lymphedema. SKIN: No obvious skin lesions or rashes are noted. Skin is warm to touch. NEUROLOGIC: No ataxia. UPPER EXTREMITIES: Left upper extremity: Skin is intact. Surgical scar is well healed, hypertrophic. Dense numbness in the ulnar nerve distribution distal to the distal 3rd of the forearm. 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 fromfull extension but can passively be extended to near extension. Fires FDP to ring finger (5/5), and FDP to small finger (4-5) Atrophy of the 1st dorsal interosseous muscle, 0/5 ADM 2/5 Intact motor and sensory median, radial distributions Warm and well perfused REVIEW OF X-RAYS/STUDIES None today IMPRESSION/DIAGNOSIS/ PLAN She is not had any return of meaningful intrinsic function after the ulnar nerve reconstruction. 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 We discussed the importance of continuing with therapy, and if she plateaus after consistent therapy we would consider capsular releases and subsequent anti claw transfers. Mookie Frank M.D. Mobile Development Manager Hand and Upper Extremity [facility] Orthopedics Dr. Frank is dictating using speech recognition software. Cleaning Attendant variances may occur. STANT PROSECUTING ATTORNEY documented in this encounter Plan of Treatment Upcoming Encounters Date Type Department Care Team (Late st Contact Info) Description 11/19/2024 Hospital Encounter [facility] 1 [place] [address] Gal Bass MD [address] [facility] [phone] [place] [address] documented as of this encounter Visit Diagnoses Diagnosis Injury of ulnar nerve at forearm level, left arm, sequela- Primary documented in this encounter Historical Medications * This list may reflect changes made after this encounter. Medication Sig Dispense Quantity Refills Last Filled Start D ate End Date valACYclovir (VALTREX) 1 gram tablet 08/31/2022 03/15/2024 lidocaine (GLYDO) 2 % jelly in applicator 09/20/202204/30 added in this encounter Care Teams Customer Relations Coordinator Relationship Specialty Start Date End Date Brian Velarde DO [address] [place] [address] PCP - General Family Practice 07/25/20 documented as of this encounter
--- OUTSIDE RECORDS SUMMARY | 2024-09-18 05:15 | XMS_ITS | Encounter Summary ---
Author Organization [facility] Healthcare Address [address] [place] [address] Care Team Providers Care Inspector And Hand Packager Name Role Phone Brian Velarde Primary Care Provider + Reason for Visit * Reason Onset Date Comments Incoming Call 09/12/2022 Ultrasoun d Question Encounter Details Date Type Department Care Team (Late st Contact Info) Description 09/12/2022 Nurse Triage [address] [phone] Sonia Blunt RN Social History Tobacco Use Types Packs/Day [...] on file Legal Sex Female 11:21 AM GRAIN UNLOADER MACHINE Gender Identity Not on file Sexual Orientation Not on file 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 General information question, no triage required and triager able to answer question Answer Assessment - Initial Assessment Questions 1. REASON FOR CALL or QUESTION: What question do you have that I can help answer? Pt states was seen in the [facility] where she had an ultrasound. Pt wanted to know if what was seen on the ultrasound could be a corpus luteum cyst. Explained to patient that the possibility of a cyst was not documented but what was documented in her note was the physicians were concerned for a possible ectopic . This RN recommended pt to return as scheduled for repeat blood work. Encouraged pt to ask about possibility of there being a cyst vs. Ectopic at that time and to discuss with physician plan of care for follow-up. Pt verbalizes understanding and denies any other needs or concerns at this time. Protocols used: Information Only Call - No [id number] N UNLOADER MACHINE * Telephone Encounter - Sonia Blunt RN - 09/12/2022 1:26 AM GRAIN UNLOADER MACHINE ----- Message from Amy Marcos sent at 09/12/2022 1:25 AM GRAIN UNLOADER MACHINE ----- Questions regarding ultrasound that were taken at [facility] yesterday N UNLOADER MACHINE documented in this encounter Plan of Treatment Upcoming Encounters Date Type Department Care Team (Late st Contact Info) Description 11/19/2024 Hospital Encounter [facility] 1 [place] [address] Gal Bass MD [address] [phone] [place] [address] documented as of this encounter Visit Diagnoses Not on filedocumented in this encounter Care Teams Inspector And Hand Packager Relationship Specialty Start Date End Date Brian Velarde DO [address] [place] [address] PCP - General Family Practice 07/25/20 documented as of this encounter
--- OUTSIDE RECORDS SUMMARY | 2024-09-18 05:15 | XMS_ITS | Encounter Summary ---
Author Organization [facility] Healthcare Address [address] [place] [address] Care Team Providers Care Medical Transcription Name Role Phone Brian Velarde DO Primary Care Provider + Encounter Details Date Type Department Care Team (Late st Contact Info) Description 10/19/2022 Orders Only [facility] 1 [place] [address] Izabela Ortiz MD [address] [facility] [address] [address] of unknown anatomic location (Primary Dx) Social [...] on file Legal Sex Female 11:21 AM SEARCH ENGINE OPTIMIZATION MANAGER Gender Identity Not on file Sexual Orientation Not on file 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 1 [place] [address] Gal Bass MD [address] [facility] [phone] [place] [address] documented as of this encounter Visit Diagnoses Diagnosis of unknown anatomic location- Primary documented in this encounter Care Teams Medical Transcription Relationship Specialty Start Date End Date Brian Velarde DO [address] [place] [address] PCP - General Family Practice 07/25/20 documented as of this encounter
--- OUTSIDE RECORDS SUMMARY | 2024-09-18 05:15 | XMS_ITS | Encounter Summary ---
Author Organization [facility] Healthcare Address [address] [place] [address] Care Team Providers Care Manager Field Services Name Role Phone Brian Velarde DO Primary Care Provider + Encounter Details Date Type Department Care Team (Late st Contact Info) Description 10/15/2022 Telephone [facility] 1 [place] [address] Izabela Ortiz MD [address] [facility] [address] [address] Social History Tobacco Use Types Packs/Day Years [...] on file Legal Sex Female 11:21 AM FERRYBOAT TICKET TAKER Gender Identity Not on file Sexual Orientation Not on file 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 Patient reports she is feeling well, denies vaginal bleeding or abdominal pain. Reports she will present today for labs. Izabela Gonzalez MD YBOAT TICKET TAKER documented in this encounter Plan of Treatment Upcoming Encounters Date Type Department Care Team (Late st Contact Info) Description 11/19/2024 Hospital Encounter [facility] 1 [place] [address] Gal Bass MD [address] [facility] [phone] [place] [address] documented as of this encounter Visit Diagnoses Not on filedocumented in this encounter Care Teams Manager Field Services Relationship Specialty Start Date End Date Brian Velarde DO [address] [place] [address] PCP - General Family Practice 07/25/20 documented as of this encounter
--- OUTSIDE RECORDS SUMMARY | 2024-09-18 05:15 | XMS_ITS | Encounter Summary ---
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 Left voicemail. Izabela Gonzalez MD CAL MIXER documented in this encounter Plan of Treatment Upcoming Encounters Date Type Department Care Team (Late st Contact Info) Description 11/19/2024 Hospital Encounter [facility] 1 [place] [address] Gal Bass MD [address] [facility] [phone] [place] [address] documented as of this encounter Visit Diagnoses Not on filedocumented in this encounter Care Teams Hog Cutter Relationship Specialty Start Date End Date Brian Velarde DO [address] [place] [address] PCP - General Family Practice 07/25/20 documented as of this encounter
--- OUTSIDE RECORDS SUMMARY | 2024-09-18 05:15 | XMS_ITS | Encounter Summary ---
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 Not on file Not on file Not on file documented as of this encounter Last Filed Vital Signs Vital Sign Reading Time Taken Comments Blood Pressure 117/75 09/27/2022 6:20 PM GAUGER CHIEF Pulse 96 09/27/2022 6:21 PM GAUGER CHIEF Temperature 36.7 ??C (98 ??F) 09/27/2022 6:20 PM GAUGER CHIEF Respiratory Rate 18 09/27/2022 6:20 PM GAUGER CHIEF Oxygen Saturation 100% 09/27/2022 6:20 PM GAUGER CHIEF Inhaled Oxygen Concentration - - Weight - - Height 154.9 cm (5' 1 ) 09/27/2022 6:20 PM GAUGER CHIEF Body Mass Index - - documented in this encounter Discharge Instructions * Discharge Instructions* Azucena Newell RN - 09/27/2022 8:37 PM GAUGER CHIEF Please arrived to [facility] on Wednesday for a repeat Beta HCG lab draw. ER CHIEF documented in this encounter Medications at Time [...] MD given Tahmina Bergeron cannot prescribe for [place] Medicaid 45 mL 1 09/21/2022 3 21-iron [...] documented in this encounter Progress Notes * Shakila Soto MD - 09/27/2022 8:12 PM CST R3 PASSENGER BARGE MASTER Brief Note 26 y.o at 7w0d by LMP with history of prior R sided ectopic , currently being followed in beta book for right sided possibly cornual ectopic who presents for D#7 b-hCG. Waspreviously evaluated in [facility] yesterday for abd pain. Today, she reports she's doing well. Reports some mild nausea from MTX and light vaginal bleeding. Denies abd pain, vomiting, fever, chills, dizziness, lightheadedness. B-hCG trend 455 (09/08) > 1649 (09/11) > 09/13 2554 > 09/20 6961. fUS on 09/24 notable for concern for ectopic seen in right interstitial c/f cornual ectopic versus interstitial tubal ectopic with small amount of free fluid in posterior cul-de-sac. Had opted for medical management with 2-dose methotrexate regimen. Received MTX on 09/20 and 2nd dose on 09/24 Since 2nd dose, b-hCG trend 9606 (Day4, 09/24) > 8401 (09/26, Day 6) > 8468 (Day 7, 09/27). Percentdecrease ~12% (11.8%) Given plateau in b-hCG and inappropriate decrease in b-hCG as well as right cornual ectopic and patient's continued desire to proceed with medical management, plan to administer another IM MTX dose (50mg/m2). Repeat CBC/CMP wnl. IM MTX given. Reviewed strict return precautions. Plan to repeat b-hCG on Day 11 (due on 09/30). Dr. Coe updated and aware Shakila Soto MD PGY-3, Obstetrics & Gynecology ER CHIEF documented in this encounter Nursing Notes * Azucena Newell RN - 09/27/2022 9:17 PM CST Care assumed at 1900. Labs resulted. Methotrexate given IM. Patient given return precautions and verbalized understanding. Patient to return Wednesday09/30/2022 for repeat bHCG. Azucena Newell RN 09/27/2022 ER CHIEF documented in this encounter Plan of Treatment Upcoming Encounters Date Type Department Care Team (Late st Contact Info) Description 11/19/2024 Hospital Encounter [facility] [address] [place] [address] Gal Bass MD [address] [facility] [phone] [place] [address] documented as of this encounter Procedures Procedure Name Priority Date/Time Associated Diagnosis Comments CBC WITHOUT DIFFERENTIAL STAT 09/27/2022 7:45 PM GAUGER CHIEF EGFR STAT 09/27/2022 6:20 PM GAUGER CHIEF HCG, BLOOD, QUANTITATIVE STAT 09/27/2022 6:20 PM GAUGER CHIEF COMPREHENSIVE METABOLIC PANEL STAT 09/27/2022 6:20 PM GAUGER CHIEF documented in this encounter Results * (ABNORMAL) CBC without differential (09/27/2022 7:45 PM GAUGER CHIEF) WBC 6.7 3.8 - 9.9 K/cumm [facility] Hgb 11.5(L) 11.9 - 15.5 g/dL [facility] Hct 37.2 35.6 - 45.5 % [facility] Plt 307 150 - 400 K/cumm [facility] MPV 11.3 9.1 - 12.3 fL [facility] RBC 4.48 3.90 - 5.20 M/cumm [facility] MCV 83.0 81.3 - 96.4 fL [facility] MCH 25.7(L) 27.1 - 33.3 pg [facility] MCHC 30.9(L) 32.3 - 35.7 g/dL [facility] RDW CV 15.3(H) 11.1 - 14.9 % [facility] RDW SD 46.3 35.7 - 48.1 fL [facility] NRBC abs 0.00 0.00 - 0.01 K/cumm [facility] Blood 09/27/2022 7:45 PM GAUGER CHIEF 09/27/2022 8:01 PM GAUGER CHIEF us Farideh Waite MD LAB BLOOD ORDERABLES Final R esult [facility] Department [place] [address] * eGFR (09/27/2022 6:20 PM GAUGER CHIEF) eGFR >90 90 - 130 mL/min/1. 73 m2 [facility] Comment: Interpretive Data Reference Interval Normal ?>/= [...] interpretive data was last reviewed 2021. Blood 09/27/2022 6:20 PM GAUGER CHIEF 09/27/2022 6:46 PM GAUGER CHIEF us Farideh Waite MD LAB BLOOD ORDERABLES Final R esult [facility] Department [place] [address] * Comprehensive metabolic panel (09/27/2022 6:20 PM GAUGER CHIEF) Sodium 140 135 - 145 mmol/L [facility] Potassium, pl 4.4 3.3 - 4.9 mmol/L [facility] Chloride 106 97 - 110 mmol/L [facility] CO2 25 22 - 32 mmol/L [facility] Anion gap 9 2 - 15 mmol/L [facility] BUN 8 8 - 25 mg/dL [facility] Creatinine 0.70 0.60 - 1.10 mg/dL [facility] Glucose 89 70 - 199 mg/dL [facility] Comment: Interpretive Data Fasting glucose >/= 126 [...] interpretive data was last revised 2017. Calcium 9.4 8.5 - 10.3 mg/dL [facility] Bilirubin, total 0.2 0.1 - 1.2 mg/dL [facility] Protein, pl 7.6 6.5 - 8.5 g/dL [facility] Albumin 4.0 3.5 - 5.0 g/dL [facility] Alk phos 56 40 - 130 Units/L [facility] ALT 29 7 - 45 Units/L [facility] AST 20 10 - 45 Units/L [facility] Blood 09/27/2022 6:20 PM GAUGER CHIEF 09/27/2022 6:46 PM GAUGER CHIEF us Farideh Waite MD LAB BLOOD ORDERABLES Final R esult [facility] Department [place] [address] * (ABNORMAL) hCG, blood, quantitative (09/27/2022 6:20 PM GAUGER CHIEF) hCG, quant 8,468.0(H ) 0.0 - 5.0 IUnits/L [facility] Comment: Interpretive Data: Male: ??<5.0 IUnits/L Non- Female: <5.0 IUnits/L Female: ??3 weeks: ??5.8 - 71.2 ??4 weeks: ??9.5 - 750 ??5 weeks: ??217 - 7138 ??6 weeks: ??158 - 49435 ??7 weeks: ??3757 - 633930 ??8 weeks: ??22630 - 533056 ??9 weeks: ??63276 - 176440 ??10 weeks: 67125 - 561830 ??12 weeks: 25240 - 740773 ??14 weeks: 11064 - 48870 ??15 weeks: 95793 - 06927 ??16 weeks: 9369 - 16072 ??17 weeks: 3566 - 22570 ??18 weeks: 1605 - 29369 All results should be interpreted in context of clinical presentations as rare causes of falsely positive and falsely negative results are known to exist. The Kirill hCG Beta Quant assay procedure was used. Results from different manufacturers or methods may not be comparable. Serial testing should be performed using the same method. Current interpretive data was last revised 22. Blood 09/27/2022 6:20 PM GAUGER CHIEF 09/27/2022 6:34 PM GAUGER CHIEF us Joanne Pedro MD LAB BLOOD ORDERABLES Final Result [facility] Department [place] [address] documented in this encounter Visit Diagnoses Not on filedocumented in this encounter Administered Medications Inactive Administered Medications - up to 3 most recent administrations Medication Order MAR Action Action Date Dose Rate Site lidocaine (GLYDO) 2 % jelly 100 mg 100 mg (5 mL), topical, Once, On 09/27/22 at 2030, For 1 dose Given 09/27/2022 9:12 PM GAUGER CHIEF 100 mg methotrexate intramuscular injection 95 mg 95 mg (50 mg/m2 ? 1.9 m2), intramuscular, Once, On 09/27/22 at 2030, For 1 dose, Indications: Ectopic PregnancyIndications:Ectop ic Given 09/27/2022 9:07 PM GAUGER CHIEF 95 mg Right Dorsogluteal/Butt ock documented in this encounter Active and Recently Administered Medications Times are shown in GAUGER CHIEF. Scheduled Medication Order 09/25/2022 09/26/2022 09/27/2022 lidocaine (GLYDO) 2 % jelly 100 mg (COMPLETED) 100 mg (5 mL), topical, Once, On 09/27/22 at 2030, For 1 dose 2111 (Given - Provid er: Azucena Newell RN) methotrexate intramuscular injection 95 mg (COMPLETED) 95 mg (50 mg/m2 ? 1.9 m2), intramuscular, Once, On 09/27/22 at 2030, For 1 dose, Indications: Ectopic 2106 (Given - Provid er: Azucena Newell, CL - Comment: second injection in left gluteal muscle) documented in this encounter Orders Lab Orders Without Results Count Last Ordered D ate First Ordered Date COMPREHENSIVE METABOLIC PANEL 1 09/27/2022 Discharge Count Last Ordered Date First Orde red Date DISCHARGE PATIENT 1 09/27/2022 documented in this encounter Care Teams Supportability Engineer Relationship Specialty Start Date End Date Brian Velarde DO [address] [place] [address] PCP - General Family Practice 07/25/20 documented as of this encounter
--- OUTSIDE RECORDS SUMMARY | 2024-09-18 05:15 | XMS_ITS | Encounter Summary ---
Author Organization [facility] Healthcare Address [address] [place] [address] Care Team Providers Care Diesel Locomotive Firer/Fireman Name Role Phone Brian Velarde DO Primary Care Provider + Encounter Details Date Type Department Care Team (Late st Contact Info) Description 09/29/2022 Telephone [facility] [address] [place] [address] Reyna Carlos MD [address] [facility] [address] [place], [place] [id number] Social History Tobacco Use Types Packs/Day Years [...] on file Legal Sex Female 11:21 AM CORDUROY CUTTING SUPERVISOR Gender Identity Not on file Sexual Orientation Not on file 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 [facility] Reyna Carlos MD UROY CUTTING SUPERVISOR documented in this encounter Plan of Treatment Upcoming Encounters Date Type Department Care Team (Late st Contact Info) Description 11/19/2024 Hospital Encounter [facility] [address] [place] [address] Gal Bass MD [address] [facility] [phone] [place] [address] documented as of this encounter Visit Diagnoses Not on filedocumented in this encounter Care Teams Diesel Locomotive Firer/Fireman Relationship Specialty Start Date End Date Brian Velarde DO [address] [place] [address] PCP - General Family Practice 07/25/20 documented as of this encounter
--- OUTSIDE RECORDS SUMMARY | 2024-09-18 05:15 | XMS_ITS | Encounter Summary ---
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 Notes from previous visit reviewed and told patient to come back on 10/10/22. Patient verbalized understanding. R ASSEMBLER documented in this encounter Plan of Treatment Upcoming Encounters Date Type Department Care Team (Late st Contact Info) Description 11/19/2024 Hospital Encounter [facility] [address] [place] [address] Gal Bass MD [address] [place] [facility] [phone] [place] [address] documented as of this encounter Visit Diagnoses Not on filedocumented in this encounter Care Teams Licensed Physical Therapist Assistant Relationship Specialty Start Date End Date Brian Velarde DO [address] [place] [address] PCP - General Family Practice 07/25/20 documented as of this encounter
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
--- OUTSIDE RECORDS SUMMARY | 2024-09-18 05:16 | XMS_ITS | Encounter Summary ---
Author Organization [facility] Healthcare Address [address] [place] [address] Care Team Providers Care Endocrinologist Name Role Phone Brian Velarde DO Primary Care Provider + Reason for Visit * Reason Comments Abdominal Cramping Encounter Details Date Type Department Care Team (Latest Contact Info) Description 08/31/2021 12:58 AM DIRECTOR TRANSPORTATION - 08/31/2021 2:58 AM DIRECTOR TRANSPORTATION Hospital Encounter [address] [phone] Ella Strange MD [address] [facility] [phone] [place] [address] Discharge Disposition: Discharge to home or self care Social History Tobacco Use Types Packs/Day Years Used Date Smoking Tobacco: Former Cigarettes 0.2 17 S tarted: 2008 Smokeless Tobacco: Never Alcohol Use Standard Drinks/Week Comments Yes 3 (1 standard drink = 0.6 oz pur e alcohol) occasional AUDIT-C Answer Date Recorded Q1: How often do you have a drink containing alc ohol? Never 08/31/2021 Q2: How many drinks containi ng alcohol do you have on a typical day when you are drinking? 1 or 2 08/31/2021 Q3: How often do you have six or more drinks on one occasion? 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 Not on file Not on file Not on file documented as of this encounter Last Filed Vital Signs Vital Sign Reading Time Taken Comments Blood Pressure 126/60 08/31/2021 12:54 AM DIRECTOR TRANSPORTATION Pulse 99 08/31/2021 12:54 AM DIRECTOR TRANSPORTATION Temperature 37.1 ??C (98.8 ??F) 08/31/2021 12:[address] Respiratory Rate 16 08/31/2021 12:54 AM DIRECTOR TRANSPORTATION Oxygen Saturation 100% 08/31/2021 12:54 AM DIRECTOR TRANSPORTATION Inhaled Oxygen Concentration - - Weight - - Height - - Body Mass Index - - documented in this encounter Discharge Diagnoses Diagnosis Right tubal without intrauterine - RIGHT TUBAL WITHOUT INTRAUTERINE Less than 8 weeks gestation of - LESS THAN 8 WEEKS GESTATION OF Personal history of nicotine dependence - PERSONAL HISTORY OF NICOTINE DEPENDENCE documented in this encounter Discharge Instructions * Discharge Instructions* Calos Hall RN - 08/31/2021 2:55 AM DIRECTOR TRANSPORTATION Make sure to follow up with your blood draw. CTOR TRANSPORTATION documented in this encounter Medications at Time of Discharge acetaminophen (TYLENOL) 500 mg tablet Take 2 tablets (1,000 mg total) by mouth every 6 (six) hours 240 tablet 08/31/2021 09/30/2021 ibuprofen (ADVIL,MOTRIN) 600 mg tablet Take 1 tablet (600 mg total) by mouth every 6 (six) hours 120 tablet 08/31/2021 09/30/2021 documented as of this encounter Ordered Prescriptions Prescription Sig Dispense Quantity Refills Last Filled Start Date End Date ibuprofen (ADVIL,MOTRIN) 600 mg tablet Take 1 tablet (600 mg total) by mouth every 6 (six) hours 120 tablet 08/31/2021 2 acetaminophen (TYLENOL) 500 mg tablet Take 2 tablets (1,000 mg total) by mouth every 6 (six) hours 240 tablet 08/31/2021 2 documented in this encounter Discharge Disposition Disposition Code Departure Means Destination Discharge to home or self care documented in this encounter H&P Notes * Yolie Krause MD - 08/31/2021 2:11 AM CST Images from the original note were not included. [facility] H&P [id number] Pelvic bed: Yes CC: abdominal pain HPI: 25 y.o. pre-menopausal presents with abdominal pain in setting of known ectopic s/p 2 doses of MTX. Patient has known R tubal ectopic s/p MTX x2 on 08/21 and 08/24 with insufficient decrease in beta between D4 and D7 (9%) and D8 decrease by 28% (compared to day 4). Patient was last seen in [facility] on 08/29 with D8 downtrend in quant. No c/f rupture based on exam, vitals or labs. Tonight, patient reports that she was having some cramping and fluttering pain on her right side. Comes and goes and rates a 6/10. No presyncope, vaginal bleeding, LH/dizziness, nausea/vomiting, or vaginal discharge. No CP or SOB. Patient anxious about how her ectopic is doing. Patient isnot taking anything for her pain. Past Medical History: Diagnosis Date Anxiety Depression Past Surgical History: Procedure Laterality Date ARM SURGERY Left 06/2020 [facility] OB History 4 Para 1 Term 1 AB 2 Living SAB 2 IAB Ectopic Multiple Live Births RECOVERY ROOM NURSE History: Patient's last menstrual period was 07/16/2021. LMP unsure Menses: regular, every month, lasting 7 days, painful, heavy Pap History: Last at 21yo, normal . No history of abnormal pap. STD History: none Contraception: Nothing HOME MEDICATIONS : acetaminophen (TYLENOL) 500 mg tablet lidocaine jelly (XYLOCAINE) 2 % miconazole 200 mg suppository norgestimate-ethinyl estradioL (Sprintec, 28,) 0.25-35 mg-mcg per tablet Allergies as of 08/31/2021 (No Known Allergies) Social History Tobacco Use Smoking status: Former Smoker Packs/day: 0.15 Types: Cigarettes Start date: 2007 Smokeless tobacco: Never Used Substance Use Topics Alcohol use: Yes Alcohol/week: 3.0 standard drinks Types: 3 Glasses of wine per week Comment: occasional Physical Exam: Temp: [37.1 ??C (98.8 ??F)] 37.1 ??C (98.8 ??F) Pulse: [99] 99 Resp: [16] 16 BP: (126)/(60) 126/60 General: NAD, mood appropriate Pulmonary: non-labored and clear to ausculation bilaterally Cardiovascular: Regular rate and rhythm Abdomen: soft, non-tender, non-distended, without rebound or guarding Extremities: Warm and well perfused GENITAL EXAM: Deferred Recent Labs Lab Units 08/31/21 0127 08/28/21 1351 WBC K/cumm 8.1 6.2 HEMOGLOBIN g/dL 10.7* 10.9* HEMATOCRIT % 34.4* 35.3* PLATELETS K/cumm 341 346 Lab Results Component Value Date ABORH A Positive 08/19/2021 Laboratory review: Lab results in the last 24 hours: Recent Results (from the past 24 hour(s)) CBC without differential Collection Time: 08/31/21 1:27 AM Result Value Ref Range WBC 8.1 3.8 - 9.9 K/cumm Hgb 10.7 (L) 11.9 - 15.5 g/dL Hct 34.4 (L) 35.6 - 45.5 % Plt 341 150 - 400 K/cumm MPV 10.9 9.1 - 12.3 fL RBC 4.32 3.90 - 5.20 M/cumm MCV 79.6 (L) 81.3 - 96.4 fL MCH 24.8 (L) 27.1 - 33.3 pg MCHC 31.1 (L) 32.3 - 35.7 g/dL RDW CV 17.1 (H) 11.1 - 14.9 % RDW SD 47.3 35.7 - 48.1 fL NRBC abs 0.00 0.00 - 0.01 K/cumm hCG, blood, quantitative Collection Time: 08/31/21 1:27 AM Result Value Ref Range hCG, quant 1,472.1 (H) 0.0 - 5.0 IUnits/L Hgb 10.9 -> 10.7 HCG 5484 -> 1472 Imaging: BSUS: Uterus normal in appearance without free fluid present. Left and right ovary 2 and 3cm respectively. No ectopic seen. No evidence of ectopic rupture Fluid in Cul-de-sac: none PLAN: 25 y.o. presents with ectopic w/ down-trending beta hcg. # Ectopic s/p MTX with downtrending - Ultrasound findings from 08/21 consistent w/ ectopic . Repeat US tonight, w/o free fluid or redemonstration of ectopic - S/p MTX x2 doses, last given on 08/24 - Inappropriate down-trend between D4 and D7, D8 with 28% decrease from initial value, likely consistent with adequate tx - repeat quant 08/31 with significant decrease to 1472. Hgb lateral from 10.9 to 10.7 - No current concern for rupture based on exam, vitals, labs, or US w/o e/o free fluid - Reiterated return precautions, follow up bHCG in 1 week per beta book team To be discussed with Dr. Krause in AM Tre Rivas MD Department of Obstetrics and Gynecology, PGY-3 ATTENDING ATTESTATION I personally reviewed the laboratory/imaging findings and discussed the findings and plan with the resident. I agree with the findings and plan of care as documented above. Yolie Krause MD CTOR TRANSPORTATION CTOR TRANSPORTATION documented in this encounter Nursing Notes * Calos Hall RN - 08/31/2021 2:58 AM CST Patient to [facility] with right lower abdominal cramping 03/29. VSS, IV started and labs drawn. Patient seen by Alix Rivas MD and BSUS completed. Patient given discharge instructions and verbalized understanding. Patient discharged in stable condition. CTOR TRANSPORTATION documented in this encounter Plan of Treatment Upcoming Encounters Date Type Department Care Team (Late st Contact Info) Description 11/19/2024 Hospital Encounter [facility] [address] [place] [address] Gal Bass MD [address] [phone] [place] [address] documented as of this encounter Procedures Procedure Name Priority Date/Time Associated Diagnosis Comments CBC WITHOUT DIFFERENTIAL STAT 08/31/2021 1:27 AM DIRECTOR TRANSPORTATION TYPE AND SCREEN STAT 08/31/2021 1:27 AM DIRECTOR TRANSPORTATION HCG, BLOOD, QUANTITATIVE STAT 08/31/2021 1:27 AM DIRECTOR TRANSPORTATION documented in this encounter Results * (ABNORMAL) hCG, blood, quantitative (08/31/2021 1:27 AM DIRECTOR TRANSPORTATION) hCG, quant 1,472.1(H ) 0.0 - 5.0 IUnits/L JANNY JERONIMO Comment: Interpretive Data Male: <5.0 IUnits/L Non- Female: <5.0 IUnits/L Weeks Post LMP ?Reference Interval ?1-10 ?202-231,000 IUnits/L ?? 11-15 ? 22,536-234,990 IUnits/L ?? 16-22 ?8,007- 50,064 IUnits/L ?? 23-40 ?1,600- 49,413 IUnits/L All results should be interpreted in context of clinical presentations as rare causes of falsely positive and falsely negative results are known to exist. Current interpretive data last revised on 2018. Blood 08/31/2021 1:27 AM DIRECTOR TRANSPORTATION 08/31/2021 1:56 AM DIRECTOR TRANSPORTATION us Dorothy Cordoba [facility] LAB BLOOD ORDERABLES Fi nal Result JANNY JERONIMO [facility] Department [place] [address] * Type and screen (08/31/2021 1:27 AM DIRECTOR TRANSPORTATION) ABO Rh A Positive JANNY JERONIMO Ha, indirect Negative [facility] Blood 08/31/2021 1:27 AM DIRECTOR TRANSPORTATION 08/31/2021 1:42 AM DIRECTOR TRANSPORTATION Narrative [facility] - 08/31/2021 3:35 AM DIRECTOR TRANSPORTATION Has the patient had Daratumumab or Isatuximab in the past 6 months?->Unknown Dorothy Cordoba NP LAB BLOOD BANK TEST ORD ERABLES Final Result Performing Organization Address City/[facility]/ZIP Co de Phone Number [facility] [place] [address] * (ABNORMAL) CBC without differential (08/31/2021 1:27 AM DIRECTOR TRANSPORTATION) Pathologist [facility] WBC 8.1 3.8 - 9.9 K/cumm [facility] Hgb 10.7(L) 11.9 - 15.5 g/dL [facility] Hct 34.4(L) 35.6 - 45.5 % [facility] Plt 341 150 - 400 K/cumm [facility] MPV 10.9 9.1 - 12.3 fL [facility] RBC 4.32 3.90 - 5.20 M/cumm [facility] MCV 79.6(L) 81.3 - 96.4 fL [facility] MCH 24.8(L) 27.1 - 33.3 pg [facility] MCHC 31.1(L) 32.3 - 35.7 g/dL [facility] RDW CV 17.1(H) 11.1 - 14.9 % [facility] RDW SD 47.3 35.7 - 48.1 fL [facility] NRBC abs 0.00 0.00 - 0.01 K/cumm [facility] Blood 08/31/2021 1:27 AM DIRECTOR TRANSPORTATION 08/31/2021 1:56 AM DIRECTOR TRANSPORTATION Dorothy Cordoba NP LAB BLOOD ORDERABLES Fi nal Result Performing Organization Address City/[facility]/ZIP Co de Phone Number [facility] Department [place] [address] documented in this encounter Visit Diagnoses Not on filedocumented in this encounter Administered Medications Inactive Administered Medications - up to 3 most recent administrations Medication Order MAR Action Action Date Dose Rate Site sodium chloride 0.9% flush 0.5-20 mL 0.5-20 mL, intra-catheter, Every 8 hours scheduled, First dose on 08/31/21 at 0145, Flush volume based on line type and size. sodium chloride 0.9% flush 0.5-20 mL 0.5-20 mL, intra-catheter, As needed, line care, Starting on 08/31/21 at 0105, Flush volume based on line type and size. Flush before and after each use. documented in this encounter Discontinued Medications Medication Sig Discontinue Reason Start Date End Da te acetaminophen (TYLENOL) 500 mg tablet Take 1,000 mg by mouth every 6 (six) hours as needed for pain Reorder 08/31/2021 norgestimate-ethinyl estradioL (Sprintec, 28,) 0.25-35 mg-mcg per tablet Take 1 tablet by mouth daily Stop Taking at Discharge 08/21/2021 08/31/2021 miconazole 200 mg suppositoryIndication s:Vulvovaginal Candidiasis Insert 1 suppository (200 mg total) into the vagina daily Stop Taking at Discharge 08/25/2021 08/31/2021 lidocaine jelly (XYLOCAINE) 2 % Apply topically as needed for pain (discomfort) Stop Taking at Discharge 08/28/2021 08/31/2021 documented as of this encounter Active and Recently Administered Medications Times are shown in DIRECTOR TRANSPORTATION. Scheduled Medication Order 08/29/2021 08/30/2021 08/31/2021 sodium chloride 0.9% flush 0.5-20 mL 0.5-20 mL, intra-catheter, Every 8 hours scheduled, First dose on 08/31/21 at 0145, Flush volume based on line type and size. 0145 (Due) PRN Medication Order 08/29/2021 08/30/2021 08/31/2021 sodium chloride 0.9% flush 0.5-20 mL 0.5-20 mL, intra-catheter, As needed, line care, Starting on 08/31/21 at 0105, Flush volume based on line type and size. Flush before and after each use. documented in this encounter Orders Medications Ordered That Dmitry ht Not Have Been Administered Count Last Ordered Date First Ordered Date sodium chloride 0.9% flush 0.5-20 mL 2 08/20 documented in this encounter Care Teams Endocrinologist Relationship Specialty Start Date End Date Brian Velarde DO [address] [place] [address] PCP - General Family Practice 07/25/20 documented as of this encounter
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
--- OUTSIDE RECORDS SUMMARY | 2024-09-18 05:16 | XMS_ITS | Encounter Summary ---
Author Organization [facility] Healthcare Address [address] [place] [address] Care Team Providers Care Payroll Human Resources Assistant Name Role Phone Brian Velarde DO Primary Care Provider + Reason for Visit * Reason Onset Date Comments Outgoing Call 08/31/2021 ectopic Encounter Details Date Type Department Care Team (Late st Contact Info) Description 08/31/2021 Nurse Triage [address] [phone] Maria Antonia Rivas, RN Social History Tobacco Use Types Packs/Day Years Used Date Smoking Tobacco: Former Cigarettes 0.2 17 S tarted: 2007 Smokeless Tobacco: Never Alcohol Use Standard [...] on file Legal Sex 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 She has a confirmed right tubal pregnance which she received MTX for on 08/28. She will be coming to [facility] for evaluation. 'S LEATHER DRESS BELT MAKER * Telephone Encounter - Maria Antonia Rivas RN - 08/31/2021 12:09 AM MEN'S LEATHER DRESS BELT MAKER Regarding: No Dr. Moise has been seen in [place] [facility] for Etopic . Starting to have painful cramps. ----- Message from Dasia Doan sent at 08/31/2021 12:07 AM MEN'S LEATHER DRESS BELT MAKER ----- Phone number: Number verified. 'S LEATHER DRESS BELT MAKER documented in this encounter Plan of Treatment Upcoming Encounters Date Type Department Care Team (Late st Contact Info) Description 11/19/2024 Hospital Encounter [facility] 1 [place] [address] Gal Bass MD [address] [phone] [place] [address] documented as of this encounter Visit Diagnoses Not on filedocumented in this encounter Care Teams Payroll Human Resources Assistant Relationship Specialty Start Date End Date Brian Velarde DO [address] [place] [address] PCP - General Family Practice 07/25/20 documented as of this encounter
--- OUTSIDE RECORDS SUMMARY | 2024-09-18 05:16 | XMS_ITS | Encounter Summary ---
Author Organization [facility] Address [address] [place] [address] Phone Care Team Providers Care Playground Monitor Name Role Phone Brian Velarde DO Primary Care Provider + Encounter Details Date Type Department Care Team (Late st Contact Info) Description 04/01/2022 Telephone [facility] Orthopaedic Surgery [address] [place] [address] Mookie Frank MD [address] [facility] [address] [address] [place] [address] Social History Tobacco Use Types Packs/Day Years [...] file 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 Dr. Frank is recommending Meloxicam 15 mg 1/2 tablet by mouth twice daily and Gabapentin 300 mg three times a day. I spoke with the patient. She is willing to try both medications to see if it will help with her symptoms. She is aware the medications have been sent into her pharmacy. documented in this encounter Plan of Treatment Upcoming Encounters Date Type Department Care Team (Late st Contact Info) Description 11/19/2024 Hospital Encounter [facility] 1 [place] [address] Gal Bass MD [address] [facility] [phone] [place] [address] documented as of this encounter Visit Diagnoses Not on filedocumented in this encounter Care Teams Playground Monitor Relationship Specialty Start Date End Date Brian Velarde DO [address] [place] [address] PCP - General Family Practice 07/25/20 documented as of this encounter
--- OUTSIDE RECORDS SUMMARY | 2024-09-18 05:16 | XMS_ITS | Encounter Summary ---
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 MOTIVE PROFESSIONAL documented in this encounter Plan of Treatment Upcoming Encounters Date Type Department Care Team (Late st Contact Info) Description 11/19/2024 Hospital Encounter [facility] 1 [place] [address] Gal Bass MD [address] [facility] [phone] [place] [address] documented as of this encounter Visit Diagnoses Not on filedocumented in this encounter Care Teams Breast Surgeon Relationship Specialty Start Date End Date Brian Velarde DO [address] [place] [address] PCP - General Family Practice 07/25/20 documented as of this encounter
--- OUTSIDE RECORDS SUMMARY | 2024-09-18 05:16 | XMS_ITS | Encounter Summary ---
Author Organization [facility] Address [address] [place] [address] Phone Care Team Providers Care Cost Manager Name Role Phone Brian Velarde Primary Care Provider + Reason for Visit * Neurology (Routine) - Closed Specialty Diagnoses / Procedures Referred By Christina diana Referred To Contact Diagnoses Injury of ulnar nerve at forearm level, left arm, sequela Procedures EMG/NCV WITH ULTRASOUND -Please select the performing region: [facility] (All Locations); Procedure performed at: [facility] Ortho Physiatry DyMookie MD Phone: tel: fax: [facility] (All Locations) Referral ID Status Reason Start Date Expiration Date Visits Re quested Visits Authorized [id number] Closed 03/25/2022 04/24/2023 1 1 Encounter Details Date Type Department Care Team (Late st Contact Info) Description 05/11/2022 11:00 AM CDT Diagnostic [facility] Orthopaedic Surgery [address] [place] [address] Chidi Crowell MD [address] [facility] [address] [place] [address] 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 Please see EMG and Nerve Conduction report for details. (Located under Procedure and/or Media tab). Chidi Crowell M.D. Book Cleaner Division of Physical Medicine and Rehabilitation Department of Orthopaedic Surgery [facility] Chidi Crowell M.D. dictating using M Modal. Conche Loader And Unloader variances may occur. documented in this encounter Plan of Treatment Upcoming Encounters Date Type Department Care Team (Late st Contact Info) Description 11/19/2024 Hospital Encounter [address] [address] Gal Bass MD [address] [phone] [place] [address] documented as of this encounter Procedures Procedure Name Priority Date/Time Associated Diagnosis Comments EMG/NCV Routine 05/13/2022 11:28 AM CDT Injury of ulnar nerve at forearm level, left arm, sequela documented in this encounter Results * EMG/NCV WITH ULTRASOUND -Please select the performing region: [facility] (All Locations); Procedure performed at: [facility] Physiatry (05/13/2022 11:28 AM CDT) Anatomical Region Laterality Modality Other us Mookie Frank MD NEUROLOGY ORDERABLES Sandy l Result documented in this encounter Visit Diagnoses Diagnosis Injury of ulnar nerve at forearm level, left arm, sequela documented in this encounter Care Teams Cost Manager Relationship Specialty Start Date End Date Brian Velarde DO [address] [place] [address] PCP - General Family Practice 07/25/20 documented as of this encounter
--- OUTSIDE RECORDS SUMMARY | 2024-09-18 05:16 | XMS_ITS | Encounter Summary ---
Author Organization [facility] Healthcare Address [address] [place] [address] Care Team Providers Care Manager Of Software Name Role Phone Brian Velarde Primary Care Provider + Encounter Details Date Type Department Care Team (Late st Contact Info) Description 08/25/2021 Telephone [facility] 1 [place] [address] Shannan Alberto MD [address] [facility] [address] 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 Patient with vaginal burning, itching, and white discharge with vaginafeeling raw. Thinks she has a yeast infection, symptoms are similar but worse than symptoms she hashad with yeast infections in the past. She denies abodominal pain, pelvic pain, cramping, vaginal bleeding. Rx for miconazole suppository sent to pt pharmacy. Reminded to present 08/27 for quant, or sooner if she has abdominal pain, symptoms, or other changes. Ximena Alberto MD ING MACHINE OPERATOR documented in this encounter Plan of Treatment Upcoming Encounters Date Type Department Care Team (Late st Contact Info) Description 11/19/2024 Hospital Encounter [facility] 1 [place] [address] Gal Bass MD [address] [facility] [phone] [place] [address] documented as of this encounter Visit Diagnoses Not on filedocumented in this encounter Care Teams Manager Of Software Relationship Specialty Start Date End Date Brian Velarde DO [address] [place] [address] PCP - General Family Practice 07/25/20 documented as of this encounter
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
--- OUTSIDE RECORDS SUMMARY | 2024-09-18 05:16 | XMS_ITS | Encounter Summary ---
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 Gender Identity Not on file Sexual Orientation Not on file 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 Not on file Not on file Not on file documented as of this encounter Plan of Treatment Upcoming Encounters Date Type Department Care Team (Late st Contact Info) Description 11/19/2024 Hospital Encounter [address] [phone] Gal Bass MD [address] [phone] [place] [address] documented as of this encounter Procedures Procedure Name Priority Date/Time Associated Diagnosis Comments SCAN - RADIOLOGY/IMAGING 09/01/2021 documented in this encounter Results * SCAN - RADIOLOGY/IMAGING (09/01/2021) Anatomical Region Laterality Modality Other us Provider Scanning Final Result documented in this encounter Visit Diagnoses Not on filedocumented in this encounter Care Teams Chemical Plant Manager Relationship Specialty Start Date End Date Brian Velarde DO [address] [place] [address] PCP - General Family Practice 07/25/20 documented as of this encounter
--- OUTSIDE RECORDS SUMMARY | 2024-09-18 05:16 | XMS_ITS | Encounter Summary ---
Author Organization [facility] Healthcare Address [address] [place] [address] Care Team Providers Care Mortgage Banker Name Role Phone Brian Velarde DO Primary Care Provider + Encounter Details Date Type Department Care Team (Late st Contact Info) Description 09/01/2021 Telephone [facility] 1 [place] [phone] Shannan Alberto MD [address] [facility] 3 [facility] [address] [place], [place] [id number] Social History Tobacco Use Types Packs/Day Years [...] on file Legal Sex Female 11:21 AM VISITOR SERVICES INFORMATION ASSISTANT Gender Identity Not on file Sexual Orientation Not on file 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 Not on file Not on file Not on file documented as of this encounter Miscellaneous Notes * Telephone Encounter - Shannan Alberto MD - 09/01/2021 8:25 AM CST Problem Tubal Without Intrauterine Telephone Number Shorty Murphy [phone] (home) Home Yes [x] PUL Card Given [...] 2152 Lab Results Component Value Date HCG 1,472.1 (H) 08/31/2021 HCG 5,483.7 (H) 08/28/2021 HCG 6,942.1 (H) 08/27/2021 HCG 7,623.8 (H) 08/24/2021 HCG 5,304.9 (H) 08/21/2021 HCG 3,218.4 (H) 08/19/2021 HCG 6.0 (H) 12/04/2020 HCG 38.0 (H) 11/29/2020 HCG 068952.0 (H) 08/28/201608/20: Called and left VM about plan for repeat beta tomorrow in [facility] and to wait for result and proceed with management pending result including possible repeat US vs medical vs surgical treatment depending on beta value/imaging. Gave [facility] location information and clinic phone number to call about time pt plans to present tomorrow to [facility]. Reviewed return precautions and s/s ectopic . Lab ordered confirmed. Subsequently spoke to pt who denies abd pain or VB and is agreeable to plan, plansto presents to [facility] at 3pm tomorrow. Reviewed s/s ectopic and return precautions, pt vocalizes understanding. Consult resident updated. 08/21: Pt seen in [facility], R ectopic confirmed on ultrasound. Counseled regarding options, elected for MTX. Will give 2 dose regimen / bHCG >5K. Plans to present to [facility] 08/24 for day 4 beta HCG [...] surgery after counseling on R/B. Came to [facility] for repeat beta and evaluation: Beta 5484, exam benign. Declines OR s/p extensive counseling. Will return for beta 09/04, return precautions reviewed. 08/31: Patient seen in [facility] for cramping. US w/o e/o rupture. Beta 1472. 09/01: Called patient to follow up, feeling well and plans to present 09/04 for repeat Beta PLAN Next beta due: 09/04 Contraception: Attempting conception [] Signed out with attending and okay to remove from beta book. Attending Name: TOR SERVICES INFORMATION ASSISTANT documented in this encounter Plan of Treatment Upcoming Encounters Date Type Department Care Team (Late st Contact Info) Description 11/19/2024 Hospital Encounter [address] [address] Gal Bass MD [address] [phone] [place] [address] documented as of this encounter Visit Diagnoses Not on filedocumented in this encounter Care Teams Mortgage Banker Relationship Specialty Start Date End Date Brian Velarde DO [address] [place] [address] PCP - General Family Practice 07/25/20 documented as of this encounter
--- OUTSIDE RECORDS SUMMARY | 2024-09-18 05:16 | XMS_ITS | Encounter Summary ---
Author Organization [facility] Healthcare Address [address] [place] [address] Care Team Providers Care Supervisor Mails Name Role Phone Brian Velarde DO Primary Care Provider + Encounter Details Date Type Department Care Team (Late st Contact Info) Description 08/27/2021 Documentation [facility] 1 [place] [address] Ana Cristina Fernandez MD [address] [id number] Social History Tobacco Use Types Packs/Day Years Used Date Smoking Tobacco: Former Cigarettes 0.2 17 S tarted: 2008 Smokeless Tobacco: Never Alcohol Use Standard Drinks/Week Comments Yes 3 (1 standard drink = 0.6 oz pur e alcohol) occasional AUDIT-C Answer Date Recorded Q1: How often do you have a drink containing alc ohol? Never 08/28/2021 Q2: How many drinks containi ng alcohol do you have on a typical day when you are drinking? 1 or 2 08/28/2021 Q3: How often do you have six or more drinks on one occasion? 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 female with confirmed R ectopic tubal s/p MTX 2 dose regimen with insufficient decrease in bHCG. Called patient to readdress treatment options and discuss definitive surgical management after discussing with Dr. Coe. Patient did not answer and voice mailbox full. Will call again tomorrow AM 08/28. Plan: Problem Tubal Without Intrauterine Telephone Number Relationship Voicemaeverton Murphy [phone] (home) Home Yes [x] PUL Card Given Working Diagnosis: ectopic Date presented: 08/27/21 Brief HPI: 25 y.o. at unknown gestational [...] 2152 Lab Results Component Value Date HCG 6,942.1 (H) 08/27/2021 HCG 7,623.8 (H) 08/24/2021 HCG 5,304.9 (H) 08/21/2021 HCG 3,218.4 (H) 08/19/2021 HCG 6.0 (H) 12/04/2020 HCG 38.0 (H) 11/29/2020 HCG 106604.0 (H) 08/28/201608/20: Called and left VM about plan for repeat beta tomorrow in [facility] and to wait for result and proceed with management pending result including possible repeat US vs medical vs surgical treatment depending on beta value/imaging. Gave [facility] location information and clinic phone number to call about time pt plans to present tomorrow to [facility]. Reviewed return precautions and s/s ectopic . Lab ordered confirmed. Subsequently spoke to pt who denies abd pain or VB and is agreeable to plan, plansto presents to [facility] at 3pm tomorrow. Reviewed s/s ectopic and return precautions, pt vocalizes understanding. Consult resident updated. 08/21: Pt seen in [facility], R ectopic confirmed on ultrasound. Counseled regarding options, elected for MTX. Will give 2 dose regimen 10/22 bHCG >5K. Plans to present to [facility] 08/24 for day 4 beta HCG draw [...] box is full. Will call again tomorrow. PLAN Next beta due: Contraception: Attempting conception [] Signed out with attending and okay to remove from beta book. Attending Name: GER PRIMARY CARE documented in this encounter Plan of Treatment Upcoming Encounters Date Type Department Care Team (Late st Contact Info) Description 11/19/2024 Hospital Encounter [facility] 1 [place] [address] Gal Bass MD [address] [phone] [place] [address] documented as of this encounter Visit Diagnoses Not on filedocumented in this encounter Care Teams Supervisor Mails Relationship Specialty Start Date End Date Brian Velarde DO [address] [place] [address] PCP - General Family Practice 07/25/20 documented as of this encounter
--- OUTSIDE RECORDS SUMMARY | 2024-09-18 05:16 | XMS_ITS | Encounter Summary ---
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 Patient did not answer, No voicemail left for return phone call. MANAGER * Telephone Encounter - Sonia Blunt RN - 08/21/2021 7:22 PM MRI MANAGER Regarding: missed called and calling back was just seen, is ----- Message from Noreen De Oliveira sent at 08/21/2021 7:15 PM MRI MANAGER ----- Phone number: Number verified. MANAGER documented in this encounter Plan of Treatment Upcoming Encounters Date Type Department Care Team (Late st Contact Info) Description 11/19/2024 Hospital Encounter [facility] 1 [place] [address] Gal Bass MD [address] [facility] [phone] [place] [address] documented as of this encounter Visit Diagnoses Not on filedocumented in this encounter Care Teams Sales Representative Advertising Relationship Specialty Start Date End Date Brian Velarde DO [address] [place] [address] PCP - General Family Practice 07/25/20 documented as of this encounter
--- OUTSIDE RECORDS SUMMARY | 2024-09-18 05:16 | XMS_ITS | Encounter Summary ---
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 female with R tubal ectopic s/p MTX x2 on 08/21 and 08/24 with insufficient decrease in beta between D4 and D7. On the phone we discussed her beta trend, that appropriate decrease would be > 15% and hers was 9%, reviewed that she was at higher risk for failure of MTX given beta > 5k, and her vulvar lesions are concerning for mucositis secondary to MTX. She feels the lesions are stable from yesterday. At this time she denies abdominal pain, N/V, vaginal bleeding, and feels overall well. She strongly de sires to avoid surgery and asks about receiving a third dose of MTX and trending beta. She was counseled on R/B of scheduled surgical management, and that conservative management could result in ruptured tube, hemorrhage, emergent surgery, and possible . She verbalizes understanding of this and reiterates she does not desire surgery, but would be amenable to discussing surgery if a 3rd dose of MTX does not appropriately decrease beta. She agrees to come to [facility] today for repeat beta and evaluation. She last ate at 0200 and was instructed to not eat or drink anything until evaluation. Plan discussed with Dr. Coe. [facility] aware of patient coming in for evaluation. Plan: Problem Tubal Without Intrauterine Telephone Number Shorty Murphy [phone] (home) Home Yes [x] PUL Card Given [...] (H) 12/04/2020 HCG 38.0 (H) 11/29/2020 HCG 025380.0 (H) 08/28/201608/20: Called and left VM about plan for repeat beta tomorrow in [facility] and to wait for result and proceed with management pending result including possible repeat US vs medical vs surgical treatment depending on beta value/imaging. Gave [facility] location information and clinic phone number to call about time pt plans to present tomorrow to [facility]. Reviewed return precautions and s/s ectopic . Lab ordered confirmed. Subsequently spoke to pt who denies abd pain or VB and is agreeable to plan, plansto presents to [facility] at 3pm tomorrow. Reviewed s/s ectopic and return precautions, pt vocalizes understanding. Consult resident updated. 08/21: Pt seen in [facility], R ectopic confirmed on ultrasound. Counseled regarding options, elected for MTX. Will give 2 dose regimen /2 bHCG >5K. Plans to present to [facility] 08/24 for day 4 beta HCG draw [...] desires avoiding surgery after counseling on R/B. Agrees to come to [facility] for repeat beta and evaluation. PLAN Next beta due: Contraception: Attempting conception [] Signed out with attending and okay to remove from beta book. Attending Name: SIE documented in this encounter Plan of Treatment Upcoming Encounters Date Type Department Care Team (Late st Contact Info) Description 11/19/2024 Hospital Encounter [facility] 1 [place] [address] Gal Bass MD [address] [phone] [place] [address] documented as of this encounter Visit Diagnoses Not on filedocumented in this encounter Care Teams Director Nurses' Registry Relationship Specialty Start Date End Date Brian Velarde DO [address] [place] [address] PCP - General Family Practice 07/25/20 documented as of this encounter
--- OUTSIDE RECORDS SUMMARY | 2024-09-18 05:16 | XMS_ITS | Encounter Summary ---
Author Organization [facility] Address [address] [place] [address] Phone Care Team Providers Care Microbiology Soil Scientist Name Role Phone Brian Velarde DO Primary Care Provider + Reason for Visit * Reason Comments Follow-up Encounter Details Date Type Department Care Team (Late st Contact Info) Description 01/09/2022 12:50 PM CDT Office Visit [facility] Orthopaedic Surgery [address] [place] [address] Mookie Frank MD [address] [facility] [address] [place] [address] Injury of ulnar nerve at forearm level, [...] on file Legal Sex Female 11:21 AM PRESS OPERATOR Gender Identity Not on file Sexual Orientation Not on file 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 At the last visit, distribution. We sent her to work on therapy for passive stretching and nighttime splints. In addition, she got an EMGand NCS on September 01. This showed no response of the left ulnar sensory nerve to the 5th digit, and increased latency and decreased amplitude with normal velocity of the left ulnar motor, increasedinsertional and spontaneous activity, decreased motor unit amplitude, and increased motor unit duration of the 1st dorsal interosseous and ADQ. Since that time, she has had less dysesthesia is in theforearm, and actually feels pain relief with palpation and some parts of the forearm. Her hand dysesthesias are unchanged. PHYSICAL EXAMINATION GENERAL: This is a well- [...] to touch. NEUROLOGIC: No ataxia. UPPER EXTREMITIES: On the left side, there is a well-healed surgical incision on the medial arm and forearm spanning from above the elbow until the distal forearm. Median nerve function is intact. DPC 0 all digits. Thehand is held in an ulnar clawing position. There is flexion of the IP joints. The 5th MCP joint is hyperextended by several degrees. Fifth digit held in an abducted position. Positive Wartenberg sign. Eugene test does not demonstrate active PIP extension. Contracture at PIP joint for small finger.There is atrophy of the left 1st dorsal interosseous. REVIEW OF X-RAYS/STUDIES No new radiographs obtained today IMPRESSION/DIAGNOSIS/ PLAN 26-year-old female now 17 months out from the above procedure. Her nerve conduction studies and clinical exam are indicative that there are some nerve fibers that are working. However, these are obviously slow to recover, as she has continued clawing and dysesthesias in the hand. Unfortunately her small finger PIP joint is becoming quite stiff. We had a long discussion about future management. The patient does prefer to wait and see what nerve function returns, which is reasonable given the apparent continuity and function of the nerve on nerve conduction study. We did discuss that if her nerve would stop regenerating, there are tendon transfers that could be performed. We can discuss that at a later point. She wants to continue to monitor her progress. We will see her back in 2 months. Priority is getting her SF PIP joint to be supple. Vasile Bah M.D. Orthopaedic Surgery PGY-2 Please use [email or web address] to find phone number TEACHING ATTESTATION: Please note that I personally saw and examined the patient today and activelyparticipated in the history, physical examination, review of studies, and medical decision making. I agree with the documentation initially composed by Vasile Bah MD and any documentation edits have been included above. Mookie Frank M.D. Rvda Master Certified Rv Technician Hand and Upper Extremity [facility] Orthopedics Dr. Frank is dictating using speech recognition software. Financial Services Specialist variances may occur. 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
--- OUTSIDE RECORDS SUMMARY | 2024-09-18 05:16 | XMS_ITS | Encounter Summary ---
Author Organization [facility] Healthcare Address [address] [place] [address] Care Team Providers Care Facility Manager Name Role Phone Brian Velarde Primary Care Provider + Encounter Details Date Type Department Care Team (Late st Contact Info) Description 09/11/2021 Telephone [facility] 1 [place] [phone] Katie Morse MD [address] [address] Social History Tobacco Use Types Packs/Day Years [...] on file Legal Sex Female 11:21 AM INTELLIGENCE CONSULTANT Gender Identity Not on file Sexual Orientation Not on file 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 Unable to leave voicemail, as number temporarily out of service. Will continue to follow up as clinically appropriate. Katie Morse MD Obstetrics and Gynecology, PGY-2 [email or web address] LLIGENCE CONSULTANT documented in this encounter Plan of Treatment Upcoming Encounters Date Type Department Care Team (Late st Contact Info) Description 11/19/2024 Hospital Encounter [facility] 1 [place] [phone] Gal Bass MD [address] [phone] [place] [address] documented as of this encounter Visit Diagnoses Not on filedocumented in this encounter Care Teams Facility Manager Relationship Specialty Start Date End Date Brian Velarde DO [address] [place] [address] PCP - General Family Practice 07/25/20 documented as of this encounter
--- OUTSIDE RECORDS SUMMARY | 2024-09-18 05:16 | XMS_ITS | Encounter Summary ---
Author Organization [facility] Healthcare Address [address] [place] [address] Care Team Providers Care Wastewater Project Engineer Name Role Phone Brian Velarde DO Primary Care Provider + Reason for Visit * Reason Onset Date Comments Follow-up 08/28/2021 Encounter Details Date Type Department Care Team (Late st Contact Info) Description 08/28/2021 Telephone [facility] [address] 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 Informed pt that her provider will be calling her shortly to discuss the lab values and treatment options. Advised pt to keep her phone near her so she will not miss the call. Pt verbalized understanding ofplan. Called Jim ANSARI to inform her that pt is available now. NT ACQUISITION ASSOCIATE * Telephone Encounter - Vidhi Reyes - 08/28/2021 8:38 AM CST Patient called in today returning call and would like a call back Please and Thanks! NT ACQUISITION ASSOCIATE documented in this encounter Plan of Treatment Upcoming Encounters Date Type Department Care Team (Late st Contact Info) Description 11/19/2024 Hospital Encounter [facility] 1 [place] [address] Gal Bass MD [address] [phone] [place] [address] documented as of this encounter Visit Diagnoses Not on filedocumented in this encounter Care Teams Wastewater Project Engineer Relationship Specialty Start Date End Date Brain Velarde DO [address] [place] [address] PCP - General Family Practice 07/25/20 documented as of this encounter
--- OUTSIDE RECORDS SUMMARY | 2024-09-18 05:16 | XMS_ITS | Encounter Summary ---
Author Organization [facility] Healthcare Address [address] [place] [address] Care Team Providers Care Coal Or Ore Controller Name Role Phone Brian Velarde Primary Care Provider + Encounter Details Date Type Department Care Team (Latest Contact Info) Description 09/05/2021 11:42 AM PASTEURIZER HELPER - 09/05/2021 12:51 PM PASTEURIZER HELPER Hospital Encounter [address] [phone] Daily Rodas MD [address] [facility] [phone] [place] [address] Discharge Disposition: Discharge to home or self [...] Sign Reading Time Taken Comments Blood Pressure 111/59 09/05/2021 11:47 AM PASTEURIZER HELPER Pulse 95 09/05/2021 11:47 AM PASTEURIZER HELPER Temperature 37.1 ??C (98.8 ??F) 09/05/2021 11:[address] Respiratory Rate 18 09/05/2021 11:47 AM PASTEURIZER HELPER Oxygen Saturation 100% 09/05/2021 11:47 AM PASTEURIZER HELPER Inhaled Oxygen Concentration - - Weight - - Height - - Body Mass Index - - documented in this encounter Discharge Diagnoses Diagnosis Personal history of other complications of , childbirth and the puerperium - PERSONAL HISTORY OF OTHER COMPLICATIONS OF , CHILDBIRTH AND THE PUERPERIUM documented in this encounter Medications at Time of Discharge acetaminophen (TYLENOL) 500 mg tablet Take 2 tablets (1,000 mg total) by mouth every 6 (six) hours 240 tablet 08/31/2021 09/30/2021 ibuprofen (ADVIL,MOTRIN) 600 mg tablet Take 1 tablet (600 mg total) by mouth every 6 (six) hours 120 tablet 08/31/2021 09/30/2021 documented as of this encounter Discharge Disposition Disposition Code Departure Means Destination Discharge to home or self care documented in this encounter Progress Notes * Cristela Quintana NP - 09/05/2021 12:03 PM CST Patient is here for follow-up quantitative HCG following 2 rounds of Methotrexate. States that she is still having some bleeding, but it has lightened up significantly. She is not having any pain or discomfort with the bleeding. Quantitative HCG 1,472 previously and is now down to 251.9 today. She is to return in 1 week for another beta HCG. Cristela Quintana ROXI- Cosigned by Daily Rodas MD at 09/05/2021 1:55 PM PASTEURIZER HELPER EURIZER HELPER EURIZER HELPER EURIZER HELPER documented in this encounter Nursing Notes * Hanny David, CL - 09/05/2021 12:51 PM CST The pt is being seen for repeat lab work due to a recent SAB. VSS. She does report vaginal bleedingthat has improved however, she does deny any pain @ this time. A blood specimen was sent to the laband the pt was asked to wait for the results of that testing. The results were WNL's and the pt wasdischarged to home in stable condition. EURIZER HELPER * Dorothy Padilla RN - 09/05/2021 12:50 PM CST Pt given discharge instructions. Ectopic precautions given. Pt instructed to return in 1 week for repeat labs. Pt verbalizes understanding and denies further needs. EURIZER HELPER documented in this encounter Plan of Treatment Upcoming Encounters Date Type Department Care Team (Late st Contact Info) Description 11/19/2024 Hospital Encounter [facility] [address] [place] [address] Gal Bass MD [address] [facility] [phone] [place] [address] documented as of this encounter Procedures Procedure Name Priority Date/Time Associated Diagnosis Comments HCG, BLOOD, QUANTITATIVE STAT 09/05/2021 11:56 AM PASTEURIZER HELPER documented in this encounter Results * (ABNORMAL) hCG, blood, quantitative (09/05/2021 11:56 AM PASTEURIZER HELPER) hCG, quant 251.9(H) 0.0 - 5.0 IUnits/L [facility] Comment: Interpretive Data Male: <5.0 IUnits/L Non- [...] interpretive data last revised on 2018. Blood 09/05/2021 11:5 6 AM PASTEURIZER HELPER 09/05/2021 12:09 PM PASTEURIZER HELPER us Cristela Quintana POWER TRANSMISSION ENGINEER LAB BLOOD ORD ERABLES Final Result Performing Organization Address City/State/[facility] Co de Phone Number [facility] Department [place] [address] documented in this encounter Visit Diagnoses Not on filedocumented in this encounter Care Teams Coal Or Ore Controller Relationship Specialty Start Date End Date Brian Velarde DO [address] [place] [address] PCP - General Family Practice 07/25/20 documented as of this encounter
--- OUTSIDE RECORDS SUMMARY | 2024-09-18 05:16 | XMS_ITS | Encounter Summary ---
Author Organization [facility] Address [address] [place] [address] Phone Care Team Providers Care Assistant Center Director Name Role Phone Brian Velarde DO Primary Care Provider + Encounter Details Date Type Department Care Team (Late st Contact Info) Description 04/01/2022 Orders Only [facility] Orthopaedic Surgery [address] [place] [address] Mookie Frank MD [address] [facility] [address] [place] [address] Social History Tobacco Use Types Packs/Day Years [...] on file Legal Sex Female 11:21 AM MOUNTAIN OR GLACIER GUIDE Gender Identity Not on file Sexual Orientation Not on file 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 Not on file Not on file Not on file documented as of this encounter Ordered Prescriptions Prescription Sig Dispense Quantity Refills Last Filled Start Date End Date gabapentin (NEURONTIN) 300 mg capsule Take 1 capsule (300 mg total) by mouth 3 (three) times a day 90 capsule 2 04/01/2022 4 meloxicam (MOBIC) 15 mg tablet TAKE 1/2 TABLET PO TWICE DAILY 30 tablet 2 04/01/2022 2 documented in this encounter Plan of Treatment Upcoming Encounters Date Type Department Care Team (Late st Contact Info) Description 11/19/2024 Hospital Encounter [facility] 1 [place] [address] Gal Bass MD [address] [facility] [phone] [place] [address] documented as of this encounter Visit Diagnoses Not on filedocumented in this encounter Care Teams Assistant Center Director Relationship Specialty Start Date End Date Brian Velarde DO [address] [place] [address] PCP - General Family Practice 07/25/20 documented as of this encounter
--- OUTSIDE RECORDS SUMMARY | 2024-09-18 05:16 | XMS_ITS | Encounter Summary ---
Author Organization [facility] Address [address] [place] [address] Phone Care Team Providers Care Chrome Cleaner Name Role Phone Brian Velarde DO Primary Care Provider + Encounter Details Date Type Department Care Team (Late st Contact Info) Description 09/09/2021 Telephone [facility] Orthopaedic Surgery [address] [place] [address] Mookie Frank MD [address] [facility] [address] [place] [address] Social History Tobacco Use Types Packs/Day Years [...] on file Legal Sex Female 11:21 AM RADAR TECHNICIAN Gender Identity Not on file Sexual Orientation Not on file 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 Dr. Frank spoke with the patient on 09/08/21 regarding her EMG that was completed on 09/01/21. Nothingto do at this point, should follow-up in 3-4 months for RPV (no studies) R TECHNICIAN R TECHNICIAN documented in this encounter Plan of Treatment Upcoming Encounters Date Type Department Care Team (Late st Contact Info) Description 11/19/2024 Hospital Encounter [facility] 1 [place] [address] Gal Bass MD [address] [facility] [phone] [place] [address] documented as of this encounter Visit Diagnoses Not on filedocumented in this encounter Care Teams Chrome Cleaner Relationship Specialty Start Date End Date Brian Velarde DO [address] [place] [address] PCP - General Family Practice 07/25/20 documented as of this encounter
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
--- OUTSIDE RECORDS SUMMARY | 2024-09-18 05:16 | XMS_ITS | Encounter Summary ---
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 MD notified pt left [facility] without notifying anyone. MD team had stepped out after counseling to sign out patient and then RNs called to notify MDs. MD went to bedside and pt not in room. Per Rns, pt not seen leaving and unsure when she departed. MD team (Thien and Julio César) called patient multiple times (Thien x 3 and Julio César x 1 on phone #s in [employer]) and this MD left for patient encouraging her to return and emphasizing the risk of life threatening bleeding. MD Neumann sent a [employer] message to patient reviewing risk of ectopic including threat to life and potential that she will not be eligible for MTX at follow up. When MD team had left to sign patient out, she expressed uncertainty about proceeding with MTX and she wasn't sure about the location of the in the tube andstrongly desired to avoid surgery and thus MD team had made the following plan: 1 re-address MTX with patient, and if she did not accept, then 2 offer admission for obs overnight and then have formalUS In AM and then re- address management. Approximately 20-30 min after patient left and attempts had been made to call her, she called into the [facility] stating that she was available for return call by this MD. MD called patient and shestated that she thought that she had been told she could go. She didn't think the MD team was coming back. MD reviewed the importance of treatment for ectopic and the risk of intraabdominalbleeding, and threat to life. MD reviewed that is noted in the tube and NOT in the uterus. D/w pt needs treatment for ectopic and that we would recommend MTX especially if she desires to preserve her tube. D/w pt no indication for MVA at this time given we see an ectopic in her tube. Reviewed importance of close follow up due to need to trend Bhcg. Pt expresses understanding and desiresto proceed with MTX. She is able to reiterate to MD the need to see that Bhcg is dropping and that if it is not dropping or is lateral then she might need a second dose or potentially surgery. Pt states she will be able to follow up. Pt states she is turning around and will come back to [facility] for treatment. States she agrees to management of her ectopic . MD notified Dr. Cottrell of the above events and the [facility] was notified the patient is returning for MTX. Sign out given to MD Armstrong. Fabienne Neumann MD ET ANALYSIS DIRECTOR ET ANALYSIS DIRECTOR documented in this encounter Plan of Treatment Upcoming Encounters Date Type Department Care Team (Late st Contact Info) Description 11/19/2024 Hospital Encounter [facility] 1 [place] [address] Gal Bass MD [address] [facility] [place] [phone] [place] [address] documented as of this encounter Visit Diagnoses Not on filedocumented in this encounter Care Teams Internet Architect Relationship Specialty Start Date End Date Brian Velarde DO [address] [place] [address] PCP - General Family Practice 07/25/20 documented as of this encounter
--- OUTSIDE RECORDS SUMMARY | 2024-09-18 05:16 | XMS_ITS | Encounter Summary ---
Author Organization [facility] Address [address] [place] [address] Care Team Providers Care Historic Sites Registrar Name Role Phone EzequielmayeladeejayrBian Chente Primary Care Provider + Reason for Referral * Diagnostic Imaging (Routine) - Closed Specialty Diagnoses / Procedures Referred By Contac t Referred To Contact Diagnoses Abdominal pain Procedures US Ob Transvaginal Marychuy Mckinnon MD [address] [place] [address] [place] [address] Phone: tel: fax: [address] [phone] Referral ID Status Reason Start Date Expiration Date Visits Re quested Visits Authorized [id number] Closed 09/09/2022 10/09/2023 1 1 OWS ARCHITECT Reason for Visit * Diagnostic Imaging (Routine) - Closed Specialty Diagnoses / Procedures Referred By Contac t Referred To Contact Diagnoses Abdominal pain Procedures US Ob Transvaginal Marychuy Mckinnon MD [address] [place] [address] [place] [address] Phone: tel: fax: [address] [phone] Referral ID Status Reason Start Date Expiration Date Visits Re quested Visits Authorized [id number] Closed 09/09/2022 10/09/2023 1 1 Encounter Details Date Type Department Care Team (Latest Contact Info) Description 09/09/2022 3:10 PM WINDOWS ARCHITECT - 09/09/2022 11:59 PM WINDOWS ARCHITECT Hospital Encounter [facility] Ultrasound [address] [place] [address] Abdominal pain Discharge Disposition: Discharge to home or self [...] Date Recorded PHQ-2 Score 2 05/12/2019 Comments No Sex and Gender Information Value Date Recorded Sex Assigned at Not on file Legal Sex Female 11:21 AM WINDOWS ARCHITECT Gender Identity Not on file Sexual Orientation [...] Encounter [facility] 1 [place] [address] Gal Bass MD [address] [facility] [phone] [place] [address] documented as of this encounter Procedures Procedure Name Priority Date/Time Associated Diagnosis Comments US OB TRANSVAGINAL Schedule Routine, Read Routine (OP Routine) 09/09/2022 4:01 PM WINDOWS ARCHITECT Abdominal pain documented in this encounter Results * US Ob Transvaginal (09/09/2022 4:01 PM WINDOWS ARCHITECT) Anatomical Region Laterality Modality Abdomen N/A Ultrasound 09/10/2022 10:0 2 AM WINDOWS ARCHITECT Narrative 09/10/2022 10:04 AM WINDOWS ARCHITECT EXAM DESCRIPTION: ?? US OB TRANSVAGINAL REASON FOR STUDY: ?? Abdominal pain for 3 days. ??History of ectopic . ?? Evaluate for ectopic . Beta-hCG: ?455 TECHNIQUE: Grayscale ultrasound of the pelvic contents was performed with ?? transvaginal ??transducer. ?? COMPARISON: ?? None FINDINGS: UTERUS: ?? The uterus is anteverted. ??The uterus is ?? homogenous ??in echotexture and measures ?? 8.1 x 5.6 x 4.5 ??cm. ENDOMETRIUM: The endometrium measures ?? 1 ??in thickness. RIGHT OVARY: The right ovary measures ?? 4.3 x 1.9 x 2.6 ??cm. ?? There is documentation of color Doppler flow in the right ovary. The right ovary appears unremarkable. ?? 2.1 cm likely corpus luteal cyst. LEFT OVARY: The left ovary measures ?? 3.8 x 2.1 x 2.2 ??cm. ?? There is documentation of color Doppler flow in the left ovary. ??The left ovary appears unremarkable. PELVIC FLUID: ?? There is no evidence of free fluid in the pelvis. OTHER: ?? No other significant findings. Clinical gestational age: ?8.1 x 5.6 x 4.5 IMPRESSION: ?? No acute abnormality. THIS IS AN ELECTRONICALLY VERIFIED FINAL REPORT 09/10/2022 10:04 AM - Electronically signed by ??Brian Jay M.D. JA: IKER D: ??09/10/2022 10:04 AM T: ??09/10/2022 10:04 AM Report ID: [id number] Reading Location: ??[id number] Procedure Note Brian Jay MD - 09/10/2022 EXAM DESCRIPTION: US OB TRANSVAGINAL REASON FOR STUDY: Abdominal pain for 3 days. History of ectopicpregnancy. Evaluate for ectopic . Beta-hC TECHNIQUE: Grayscale ultrasound of the pelvic contents was performed with transvaginal transducer. COMPARISON: None FINDINGS: UTERUS: The uterus is anteverted. The uterus is homogenousin echotexture and measures 8.1 x 5.6 x 4.5 cm. ENDOMETRIUM: The endometrium measures 1 in thickness. RIGHT OVARY: The right ovary measures 4.3 x 1.9 x 2.6 cm. There is documentation of color Doppler flow in the right ovary. The right ovary appears unremarkable. 2.1 cm likely corpus luteal cyst. LEFT OVARY: The left ovary measures 3.8 x 2.1 x 2.2 cm. There is documentation of color Doppler flow in the left ovary. The left ovaryappears unremarkable. PELVIC FLUID: There is no evidence of free fluid in the pelvis. OTHER: No other significant findings. Clinical gestational age: 8.1 x 5.6 x 4.5 IMPRESSION: No acute abnormality. THIS IS AN ELECTRONICALLY VERIFIED FINAL REPORT 09/10/2022 10:04 AM - Electronically signed by Brian Jay M.D. JA: IKER Report ID: [id number] Reading Location: [id number] us Marychuy Mckinnon MD IMG OB US PROCEDURES Sandy l Result documented in this encounter Visit Diagnoses Diagnosis Abdominal pain Abdominal pain, unspecified site documented in this encounter Care Teams Historic Sites Registrar Relationship Specialty Start Date End Date Brian Velarde DO [address] [place] [address] PCP - General Family Practice 07/25/20 documented as of this encounter
--- OUTSIDE RECORDS SUMMARY | 2024-09-18 05:16 | XMS_ITS | Encounter Summary ---
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, left arm, sequela Procedures EMG/NCV WITH ULTRASOUND - Mookie Frank MD Phone: tel: fax: [facility] (All Locations) Referral ID Status Reason Start Date Expiration Date Visits Re quested Visits Authorized [id number] Closed 03/03/2021 04/02/2022 1 1 Encounter Details Date Type Department Care Team (Late st Contact Info) Description 09/01/2021 8:45 AM INSTANT POWDER SUPERVISOR Diagnostic [facility] Orthopaedic Surgery [address] [place] [address] Chidi Crowell MD [address] [facility] [address] [place] [address] Injury of ulnar nerve at forearm level, [...] on file Legal Sex Female 11:21 AM INSTANT POWDER SUPERVISOR Gender Identity Not on file Sexual Orientation Not on file 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 Please see EMG and Nerve Conduction report for details. (Located under Procedure and/or Media tab). Chidi Crowell M.D. Diesel Retrofit Installer Division of Physical Medicine and Rehabilitation Department of Orthopaedic Surgery [facility] Chiid Crowell M.D. dictating using M Modal. Heat Sealing Machine Operator variances may occur. 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
--- OUTSIDE RECORDS SUMMARY | 2024-09-18 05:16 | XMS_ITS | Encounter Summary ---
Author Organization [facility] Healthcare Address [address] [place] [address] Care Team Providers Care Telegraph Installer Name Role Phone Brian Velarde DO Primary Care Provider + Encounter Details Date Type Department Care Team (Late st Contact Info) Description 09/16/2021 Documentation 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 Signed out of beta book at this time. Problem Tubal Without Intrauterine Telephone Number Shorty Murphy [phone] (home) Home Yes [x] PUL Card Given [...] (H) 12/04/2020 HCG 38.0 (H) 11/29/2020 HCG 991396.0 (H) 08/28/201608/20: Called and left VM about plan for repeat beta tomorrow in [facility] and to wait for result and proceed with management pending result including possible repeat US vs medical vs surgical treatment depending on beta value/imaging. Gave [facility] location information and clinic phone number to call about time pt plans to present tomorrow to [facility]. Reviewed return precautions and s/s ectopic . Lab ordered confirmed. Subsequently spoke to pt who denies abd pain or VB and is agreeable to plan, plansto presents to [facility] at 3pm tomorrow. Reviewed s/s ectopic and return precautions, pt vocalizes understanding. Consult resident updated. 08/21: Pt seen in [facility], R ectopic confirmed on ultrasound. Counseled regarding options, elected for MTX. Will give 2 dose regimen 2/2 bHCG >5K. Plans to present to [facility] 08/24 for day 4 beta [...] surgery after counseling on R/B. Came to [facility] for repeat beta and evaluation: Beta 5484, exam benign. Declines OR s/p extensive counseling. Will return for beta 09/04, return precautions reviewed. 08/31: Patient seen in [facility] for cramping. US w/o e/o rupture. Beta 1472. 09/01: Called patient to follow up, feeling well and plans to present 09/04 for repeat Beta 09/04: Called patient to remind about labs, no answer and VM full 09/05: Beta 251 09/11: called, unable to leave VM 09/15: called all numbers listed on [facility], none are in service. checked care everywhere. certified letter sent. PLAN Next beta due: 09/12 (missed, unable to contact) Contraception: Attempting conception [x] Signed out with attending and okay to remove from beta book. Attending Name: Dr. Deng PPER SOFT PLASTIC documented in this encounter Plan of Treatment Upcoming Encounters Date Type Department Care Team (Late st Contact Info) Description 11/19/[address] [facility] 1 [place] [address] Gal Bass MD [address] [phone] [place] [address] documented as of this encounter Visit Diagnoses Not on filedocumented in this encounter Care Teams Telegraph Installer Relationship Specialty Start Date End Date Brian Velarde DO [address] [place] [address] PCP - General Family Practice 07/25/20 documented as of this encounter
--- OUTSIDE RECORDS SUMMARY | 2024-09-18 05:16 | XMS_ITS | Encounter Summary ---
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 SEWER documented in this encounter Plan of Treatment Upcoming Encounters Date Type Department Care Team (Late st Contact Info) Description 11/19/2024 Hospital Encounter [facility] 1 [place] [address] Gal Bass MD [address] [facility] [phone] [place] [address] documented as of this encounter Visit Diagnoses Not on filedocumented in this encounter Care Teams Molder Closed Molds Relationship Specialty Start Date End Date Brian Velarde DO [address] [place] [address] PCP - General Family Practice 07/25/20 documented as of this encounter
--- OUTSIDE RECORDS SUMMARY | 2024-09-18 05:16 | XMS_ITS | Encounter Summary ---
Author Organization [facility] Healthcare Address [address] [place] [address] Care Team Providers Care Echo Vascular Technologist Name Role Phone Brian Velarde DO Primary Care Provider + Reason for Visit * Reason Onset Date Comments ADMINISTRATIVE PROCESSOR Problem 09/01/2021 Follow-up teleph one call to [facility] admit on 08/31/2021 Encounter Details Date Type Department Care Team (Late st Contact Info) Description 09/01/[address] [phone] Susana Martinez LOAN REVIEW OFFICER Problem (Follow-up telephone call to [facility] admit on 08/31/2021) Social History Tobacco Use Types Packs/Day Years [...] on file Legal Sex Female 11:21 AM AIR TRAFFIC SYSTEMS TECHNICIAN Gender Identity Not on file Sexual Orientation Not on file 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 Patient states she is still having the abdominal pain - rating it 6/10. Reports she is taking Ibuprofen and it is helping. Reports vaginal bleeding that is like her normal period. She is eating and drinking fluids without difficulty. Reports she is having more lab work on 09/05/2021 at about 1200. She received her discharge instructions and does not have any questions about them. She received prescriptions for Tylenol and Ibuprofen, and did not have any difficulty getting them filled. TRAFFIC SYSTEMS TECHNICIAN documented in this encounter Plan of Treatment Upcoming Encounters Date Type Department Care Team (Late st Contact Info) Description 11/19/2024 Hospital Encounter [facility] 1 [place] [address] Gal Bass MD [address] [phone] [place] [address] documented as of this encounter Visit Diagnoses Not on filedocumented in this encounter Care Teams Echo Vascular Technologist Relationship Specialty Start Date End Date Brian Velarde DO [address] [place] [address] PCP - General Family Practice 07/25/20 documented as of this encounter
--- OUTSIDE RECORDS SUMMARY | 2024-09-18 05:16 | XMS_ITS | Encounter Summary ---
Author Organization [facility] Address [address] [place] [address] Phone Care Team Providers Care Juvenile Probation Officer Name Role Phone Brian Velarde DO Primary Care Provider + Encounter Details Date Type Department Care Team (Late st Contact Info) Description 03/25/2022 Telephone [facility] Orthopaedic Surgery [address] [place] [address] Mookie Frank MD [address] [facility] [address] [place] [address] Social History Tobacco Use Types Packs/Day Years [...] on file Legal Sex Female 11:21 AM INTEL RECRUITER Gender Identity Not on file Sexual Orientation Not on file 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 Frank afterwards. Did check with Dr. Frank and he was ok to reschedule the test. Dr. Frank wanted the same test as previously ordered. The NCS/EMG was scheduled with the patient at [facility] and then a follow up appt was made for thepatient also to see Dr. Frank right after the test. documented in this encounter Plan of Treatment Upcoming Encounters Date Type Department Care Team (Late st Contact Info) Description 11/19/[address] [facility] 1 [place] [address] Gal Bass MD [address] [facility] [phone] [place] [address] documented as of this encounter Visit Diagnoses Not on filedocumented in this encounter Care Teams Juvenile Probation Officer Relationship Specialty Start Date End Date Brian Velarde DO [address] [place] [address] PCP - General Family Practice 07/25/20 documented as of this encounter
--- OUTSIDE RECORDS SUMMARY | 2024-09-18 05:16 | XMS_ITS | Encounter Summary ---
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 I did set her Up for an EMG on 05/11/22 with a follow up appointment with Dr. Frank. I also sent a message to Dr. Frank to see what he recommends. documented in this encounter Plan of Treatment Upcoming Encounters Date Type Department Care Team (Late st Contact Info) Description 11/19/2024 Hospital Encounter [facility] 1 [place] [address] Gal Bass MD [address] [phone] [place] [address] documented as of this encounter Visit Diagnoses Not on filedocumented in this encounter Care Teams Manager Community Relationship Specialty Start Date End Date Brian Velarde DO [address] [place] [address] PCP - General Family Practice 07/25/20 documented as of this encounter
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
--- OUTSIDE RECORDS SUMMARY | 2024-09-18 05:16 | XMS_ITS | Encounter Summary ---
Author Organization [facility] Healthcare Address [address] [place] [address] Care Team Providers Care Carnival Worker Name Role Phone Brian Velarde DO Primary Care Provider + Encounter Details Date Type Department Care Team (Latest Contact Info) Description 08/21/2021 3:00 PM DESIGN COORDINATOR - 08/21/2021 3:41 PM DESIGN COORDINATOR Hospital Encounter [address] [phone] Daily Rodas MD [address] [facility] [phone] [place] [address] Discharge Disposition: Discharge to home or self [...] file Legal Sex Female 11:21 AM DESIGN COORDINATOR Gender Identity Not on file Sexual Orientation [...] st Contact Info) Description 11/19/2024 Hospital Encounter [facility] 1 [place] [address] Gal Bass MD [address] [phone] [place] [address] documented as of this encounter Visit Diagnoses Not on filedocumented in this encounter Care Teams Carnival Worker Relationship Specialty Start Date End Date Brian Velarde DO [address] [place] [address] PCP - General Family Practice 07/25/20 documented as of this encounter
--- OUTSIDE RECORDS SUMMARY | 2024-09-18 05:16 | XMS_ITS | Encounter Summary ---
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 Not on file Not on file Not on file documented as of this encounter Plan of Treatment Upcoming Encounters Date Type Department Care Team (Late st Contact Info) Description 11/19/2024 Hospital Encounter [address] [phone] Gal Bass MD [address] [phone] [place] [address] documented as of this encounter Procedures Procedure Name Priority Date/Time Associated Diagnosis Comments SCAN - RADIOLOGY/IMAGING 05/11/2022 documented in this encounter Results * SCAN - RADIOLOGY/IMAGING (05/11/2022) Anatomical Region Laterality Modality Other us Provider Scanning Final Result documented in this encounter Visit Diagnoses Not on filedocumented in this encounter Care Teams Low Pressure Boiler Tender Relationship Specialty Start Date End Date Brian Velarde DO [address] [place] [address] PCP - General Family Practice 07/25/20 documented as of this encounter
--- OUTSIDE RECORDS SUMMARY | 2024-09-18 05:16 | XMS_ITS | Encounter Summary ---
Author Organization [facility] Healthcare Address [address] [place] [address] Care Team Providers Care Grinder Set Up Operator Centerless Name Role Phone Brian Velarde DO Primary Care Provider + Encounter Details Date Type Department Care Team (Latest Contact Info) Description 08/24/2021 11:39 AM NETWORK APPLICATIONS SPECIALIST - 08/24/2021 1:37 PM NETWORK APPLICATIONS SPECIALIST Hospital Encounter [address] [phone] Jennifer Bailon MD [address] [facility] [phone] [place] [address] of unknown anatomic location (Primary Dx) Discharge [...] on file Legal Sex Female 11:21 AM NETWORK APPLICATIONS SPECIALIST Gender Identity Not on file Sexual Orientation Not on file 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 Not on file Not on file Not on file documented as of this encounter Last Filed Vital Signs Vital Sign Reading Time Taken Comments Blood Pressure 135/81 08/24/2021 11:49 AM NETWORK APPLICATIONS SPECIALIST Pulse 98 08/24/2021 11:49 AM NETWORK APPLICATIONS SPECIALIST Temperature 37.1 ??C (98.7 ??F) 08/24/2021 1 1:49 AM NETWORK APPLICATIONS SPECIALIST Respiratory Rate 16 08/24/2021 11:4 9 AM NETWORK APPLICATIONS SPECIALIST Oxygen Saturation 100% 08/24/2021 11: 49 AM NETWORK APPLICATIONS SPECIALIST Inhaled Oxygen Concentration - - Weight 81.1 kg (178 lb 14.4 oz) 021 11:49 AM NETWORK APPLICATIONS SPECIALIST Height 154.9 cm (5' 1 ) 08/24/2021 11:4 9 AM NETWORK APPLICATIONS SPECIALIST Body Mass Index 33.8 08/24/2021 11:49 AM NETWORK APPLICATIONS SPECIALIST documented in this encounter Discharge Diagnoses Diagnosis Unspecified ectopic without intrauterine - UNSPECIFIED ECTOPIC WITHOUT INTRAUTERINE Weeks of gestation of not specified - WEEKS OF GESTATION OF NOT SPECIFIED documented in this encounter Discharge Instructions * Discharge Instructions* Dorothy Padilla RN - 08/24/2021 12:13 PM NETWORK APPLICATIONS SPECIALIST Return to [facility] on 08/27/2021 for repeat lab draw. Return to [facility] if having any abdominal pain on one side or the other, or heavy vaginal bleeding that is soaking through a pad in an hour or less. ORK APPLICATIONS SPECIALIST documented in this encounter Medications at Time of Discharge acetaminophen (TYLENOL) 500 mg tablet Take 1,000 mg by mouth every 6 (six) hours as needed for pain 08/31/2021 norgestimate-ethi nyl estradioL (Sprintec, 28,) 0.25-35 mg-mcg per tablet Take 1 tablet by mouth daily 28 tablet 12 08/21/2021 08/31/2021 documented as of this encounter Discharge Disposition Disposition Code Departure Means Destination Discharge to home or self care documented in this encounter Progress Notes * Tre Rivas MD - 08/24/2021 1:27 PM CST Manufacturing Supervisor 2Nd Shift R3 Update Note Patient stable and presenting for planned D4 quant and 2nd dose of MTX. Asx. Received MTX dose. Hcguptrending to 7600 from 5300 possibly c/w treatment response. Reviewed ectopic precautions and ordered for D7 quant on 08/27. Patient will represent for draw at that time. Tre Rivas MD Department of Obstetrics and Gynecology, PGY-3 ORK APPLICATIONS SPECIALIST documented in this encounter Nursing Notes * Dorothy Padilla RN - 08/24/2021 1:37 PM CST Pt presented to [facility] for repeat bHCG and methotrexate injection. Lab obtained and sent. Pt given MTX injection. Lab results reviewed with Alix Rivas MD--verbal orders to dc home. Pt dc home in stable condition. ORK APPLICATIONS SPECIALIST documented in this encounter Plan of Treatment Upcoming Encounters Date Type Department Care Team (Late st Contact Info) Description 11/19/2024 Hospital Encounter [facility] 1 [place] [phone] Gal Bass MD [address] [facility] [phone] [place] [address] documented as of this encounter Procedures Procedure Name Priority Date/Time Associated Diagnosis Comments HCG, BLOOD, QUANTITATIVE STAT 08/24/2021 12:01 PM NETWORK APPLICATIONS SPECIALIST documented in this encounter Results * (ABNORMAL) hCG, blood, quantitative (08/24/2021 12:01 PM NETWORK APPLICATIONS SPECIALIST) hCG, quant 7,623.8(H ) 0.0 - 5.0 IUnits/L [facility] Comment: Interpretive Data Male: <5.0 IUnits/L Non- [...] interpretive data last revised on 2018. Blood 08/24/2021 12:0 1 PM NETWORK APPLICATIONS SPECIALIST 08/24/2021 12:05 PM NETWORK APPLICATIONS SPECIALIST us Jennifer Balion MD LAB BLOOD ORDE JOSE G Final Result [facility] One [facility] Department [place] [address] documented in this encounter Visit Diagnoses Diagnosis of unknown anatomic location- Primary documented in this encounter Administered Medications Inactive Administered Medications - up to 3 most recent administrations Medication Order MAR Action Action Date Dose Rate Site methotrexate intramuscular injection 92.5 mg 92.5 mg (rounded from 93.5 mg = 50 mg/m2 ? 1.87 m2), intramuscular, Once, On 08/24/21 at 1230, For 1 dose, Indications: Ectopic PregnancyIndications:Ectop ic Given 08/24/2021 1:33 PM NETWORK APPLICATIONS SPECIALIST 92.5 mg Left Dorsogluteal/But tock documented in this encounter Active and Recently Administered Medications Times are shown in NETWORK APPLICATIONS SPECIALIST. Scheduled Medication Order 08/22/2021 08/23/2021 08/24/2021 methotrexate intramuscular injection 92.5 mg (COMPLETED) 92.5 mg (rounded from 93.5 mg = 50 mg/m2 ? 1.87 m2), intramuscular, Once, On 08/24/21 at 1230, For 1 dose, Indications: Ectopic 1333 (Given - Provid er: Dorothy Padilla RN) documented in this encounter Orders Medications Ordered That Dmitry ht Not Have Been Administered Count Last Ordered Date First Ordered Date methotrexate intramuscular i njection 92.5 mg 1 08/24/2021 documented in this encounter Care Teams Grinder Set Up Operator Centerless Relationship Specialty Start Date End Date Brian Velarde DO [address] [place] [address] PCP - General Family Practice 07/25/20 documented as of this encounter
--- OUTSIDE RECORDS SUMMARY | 2024-09-18 05:16 | XMS_ITS | Encounter Summary ---
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 Gender Identity Not on file Sexual Orientation Not on file 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 Gave [facility] location information and clinic phone number to call about time pt plans to present tomorrow to [facility]. Reviewed return precautions and s/s ectopic . Lab ordered confirmed. Subsequently spoke to pt who denies abd pain or VB and is agreeable to plan, plansto presents to [facility] at 3pm tomorrow. Reviewed s/s ectopic and return precautions, pt vocalizes understanding. Consult resident updated. 08/21: Pt seen in [facility], R ectopic confirmed on ultrasound. Counseled regarding options, elected for MTX. Will give 2 dose regimen 10/22 bHCG >5K. Plans to present to [facility] 08/24 for day 4 beta [...] surgery after counseling on R/B. Came to [facility] for repeat beta and evaluation: Beta 5484, exam benign. Declines OR s/p extensive counseling. Will return for beta 09/04, return precautions reviewed. 08/31: Patient seen in [facility] for cramping. US w/o e/o rupture. Beta 1472. 09/01: Called patient to follow up, feeling well and plans to present 09/04 for repeat Beta 09/04: Called patient to remind about labs, no answer and VM full PLAN Next beta due: 09/04 Contraception: Attempting conception [] Signed out with attending and okay to remove from beta book. Attending Name: INE SILVER STRIPPER documented in this encounter Plan of Treatment Upcoming Encounters Date Type Department Care Team (Late st Contact Info) Description 11/19/2024 Hospital Encounter [facility] 1 [place] [address] Gal Bass MD [address] [facility] [phone] [place] [address] documented as of this encounter Visit Diagnoses Diagnosis Tubal without intrauterine , unspecified laterality- Primary documented in this encounter Care Teams Chronic Condition Nurse Relationship Specialty Start Date End Date Brian Velarde DO [address] [place] [address] PCP - General Family Practice 07/25/20 documented as of this encounter
--- OUTSIDE RECORDS SUMMARY | 2024-09-18 05:16 | XMS_ITS | Encounter Summary ---
Author Organization [facility] Address [address] [place] [address] Phone Care Team Providers Care Curbstone Setter Name Role Phone Brian Velarde DO Primary Care Provider + Encounter Details Date Type Department Care Team (Late st Contact Info) Description 08/21/2021 Documentation [facility] Obstetrics and Gynecology [address] [facility] 7th Floor [address] [place] [address] Janet Cottrell MD [address] [place] [address] Social History Tobacco Use Types Packs/Day Years [...] on file Legal Sex Female 11:21 AM COOK ROAST Gender Identity Not on file Sexual Orientation Not on file 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 Since then, hcg has risen consistently to 5304. Today, ultrasound with resident physician Dr. Neumann revealed no intrauterine and right ectopic . The patient was offered methotrexate vs surgical management with salpingectomy. The patient reportedly was initially hesitant to proceed with treatment, given highly desired . Dr. Neumann reviewed the patient course and ultrasound images with with me. Together, we developed a plan to offer methotrexate or surgical management today; if patient wished to defer treatment until formal ultrasound could be obtained, recommend inpatient observation given rising hcg. After our discussion, Dr. Neumann was informed by [facility] staff that the patient had left the facility without informing staff. I called the patient and encouraged her to represent for methotrexate or surgical management of ectopic . Patient stated she is on her way back to [facility] Janet Cottrell MD ROAST documented in this encounter Plan of Treatment Upcoming Encounters Date Type Department Care Team (Late st Contact Info) Description 11/19/2024 Hospital Encounter [facility] 1 [place] [address] Gal Bass MD [address] [phone] [place] [address] documented as of this encounter Visit Diagnoses Not on filedocumented in this encounter Care Teams Curbstone Setter Relationship Specialty Start Date End Date Brian Velarde DO [address] [place] [address] PCP - General Family Practice 07/25/20 documented as of this encounter
--- OUTSIDE RECORDS SUMMARY | 2024-09-18 05:16 | XMS_ITS | Encounter Summary ---
Author Organization [facility] Healthcare Address [address] [place] [address] Care Team Providers Care Oil Spot Washer Name Role Phone Brian Velarde Primary Care Provider + Encounter Details Date Type Department Care Team (Late st Contact Info) Description 08/25/2021 Telephone [facility] [address] [facility] [address] Floor [address] [place] [address] Crystal Odonnell Social History Tobacco Use Types Packs/Day Years [...] on file Legal Sex Female 11:21 AM SQL SERVER ARCHITECT Gender Identity Not on file Sexual Orientation Not on file 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 SERVER ARCHITECT documented in this encounter Plan of Treatment Upcoming Encounters Date Type Department Care Team (Late st Contact Info) Description 11/19/2024 Hospital Encounter [facility] [address] [place] [address] Gal Bass MD [address] [place] [facility] [phone] [place] [address] documented as of this encounter Visit Diagnoses Not on filedocumented in this encounter Care Teams Oil Spot Washer Relationship Specialty Start Date End Date Brian Velarde DO [address] [place] [address] PCP - General Family Practice 07/25/20 documented as of this encounter
--- OUTSIDE RECORDS SUMMARY | 2024-09-18 05:16 | XMS_ITS | Encounter Summary ---
Author Organization [facility] Healthcare Address [address] [place] [address] Care Team Providers Care Patient Liaison Name Role Phone Brian Velarde Primary Care Provider + Reason for Visit * Reason Comments Abdominal Pain Encounter Details Date Type Department Care Team (Late st Contact Info) Description 09/08/2022 11:07 PM BLACKING MACHINE OPERATOR - 09/09/2022 12:14 AM [facility] Emergency [facility] Emergency Department [address] [place] [id number] Marychuy Mckinnon MD [facility] [place] [address] Abdominal pain during in first trimester (Primary Dx) Discharge Disposition: Discharge to home [...] on file Legal Sex Female 11:21 AM BLACKING MACHINE OPERATOR Gender Identity Not on file Sexual Orientation Not on file 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 Not on file Not on file Not on file documented as of this encounter Last Filed Vital Signs Vital Sign Reading Time Taken Comments Blood Pressure 124/76 09/08/2022 10:41 PM BLACKING MACHINE OPERATOR Pulse 96 09/08/2022 10:41 PM BLACKING MACHINE OPERATOR Temperature 36.7 ??C (98 ??F) 09/08/2022 10:41 PM BLACKING MACHINE OPERATOR Respiratory Rate 18 09/08/2022 10:41 PM BLACKING MACHINE OPERATOR Oxygen Saturation 100% 09/08/2022 10:41 PM BLACKING MACHINE OPERATOR Inhaled Oxygen Concentration - - Weight 83.7 kg (184 lb 8.4 oz) 09/08/2022 10:41 PM BLACKING MACHINE OPERATOR Height - - Body Mass Index 34.87 08/24/2021 11:49 AM BLACKING MACHINE OPERATOR documented in this encounter Discharge Instructions * Discharge Instructions* Marychuy Mckinnon MD - 09/09/2022 12:00 AM BLACKING MACHINE OPERATOR You will get a call tomorrow to schedule your ultrasound. Call the number listed if he did not hearfrom them. Also call Dr. Galvez's number to schedule an outpatient appointment Return to the emergency department for worsening abdominal pain KING MACHINE OPERATOR documented in this encounter Medications at Time [...] Refills Last Filled Start Date End Date 21-iron fu-folic acid ( Complete) 14 mg iron- 400 mcg tablet Take 1 tablet by mouth daily 60 tablet 09/09/2022 3 ondansetron ODT (ZOFRAN-ODT) 4 mg disintegrating tablet Take 1 tablet (4 mg total) by mouth every 8 (eight) hours as needed for nausea or vomiting 20 tablet 09/09/2022 4 documented in this encounter Discharge Disposition Disposition Code Departure Means Destination Discharge to home or self care documented in this encounter ED Notes * Bri Castellanos RN - 09/09/2022 12:13 AM CST Pt given order for ultrasound to be scheduled tomorrow. Patient aware to call the scheduling department herself if she does not receive a call by noon. Saline lock removed without difficulty and intact. No redness or swelling noted at site. Discharge instructions given to patient and reviewed at bedside. 2 paper prescriptions were given to patient. Patient verbalized understanding of instructions and plan for follow up care. Patient ambulated to ED exit with steady gait. Bri Castellanos RN 09/09/22 0014 KING MACHINE OPERATOR * Power Schuler NP - 09/08/2022 10:42 PM CST HPI Chief Complaint Patient presents with Abdominal Pain HPI 3:47 PM Marnie Jones is a 26 y.o. female presenting to the ED c/o abdominal pain. She states that she is approximately 5 weeks , from last 2 days she is having lower abdominal pain thatradiates to her lower back that is progressively getting worse. She is a history of ectopic early this year and was advised by her OBGYN to come here to rule out ectopic . She denies any vaginal bleeding or spotting. Denies any vomiting or fever or chill, does have some nausea consistent with morning sickness. Denies any UTI like symptoms. Denies any other complaint. Patient History: Past Medical History: Diagnosis Date Anxiety Depression Past Surgical History: Procedure Laterality Date ARM SURGERY Left 06/2020 [facility] Family History Problem Relation Age of Onset Depression Mother Schizophrenia Neg Hx Bipolar disorder Neg Hx Addiction problem Neg Hx Suicide Attempts Neg Hx Anesthesia problems Neg Hx Stroke Neg Hx Social History Tobacco Use Smoking status: Former Packs/day: 0.15 Types: Cigarettes Start date: 2007 Smokeless tobacco: Never Substance and Sexual Activity Drug use: Not Currently Types: Marijuana Comment: edible thc Sexual activity: Yes Alcohol Use: Not on file No current facility-administered medications for this encounter. Current Outpatient Medications: gabapentin (NEURONTIN) 300 mg capsule meloxicam (MOBIC) 15 mg tablet ondansetron ODT (ZOFRAN-ODT) 4 mg disintegrating tablet 21-iron fu-folic acid ( Complete) 14 mg iron- 400 mcg tablet Review of Systems Review of Systems Constitutional: Negative for chills and fever. HENT: Negative for ear pain and sore throat. Eyes: Negative for pain and visual disturbance. Respiratory: Negative for cough and shortness of breath. Cardiovascular: Negative for chest pain and palpitations. Gastrointestinal: Positive for abdominal pain. Negative for vomiting. Genitourinary: Negative for dysuria and hematuria. Musculoskeletal: Positive for back pain. Negative for arthralgias. Skin: Negative for color change and rash. Neurological: Negative for seizures and syncope. All other systems reviewed and are negative. Physical Exam ED Triage Vitals [09/08/22 2241] Temp Pulse Resp BP SpO2 36.7 ??C (98 ??F) 96 18 124/76 100 % Temp src Heart Rate Source Patient Position BP Location FiO2 (%) Oral -- -- -- -- Height Height Method Weight Weight Method -- -- 83.7 kg (184 lb 8.4 oz) Standing scale Physical Exam Vitals and nursing note reviewed. Constitutional: General: She is not in acute distress. Appearance: Normal appearance. She is well-developed. She is not ill-appearing, toxic-appearing or diaphoretic. HENT: Head: Normocephalic and atraumatic. Jaw: There is normal jaw occlusion. Right Ear: Hearing and external ear normal. Left Ear: Hearing and external ear normal. Nose: Nose normal. Eyes: General: Lids are normal. Vision grossly intact. Extraocular Movements: Extraocular movements intact. Conjunctiva/sclera: Conjunctivae normal. Neck: Trachea: Trachea and phonation normal. Cardiovascular: Rate and Rhythm: Normal rate and regular rhythm. Pulses: Normal pulses. Radial pulses are 2+ on the right side and 2+ on the left side. Heart sounds: Normal heart sounds. No murmur heard. Pulmonary: Effort: Pulmonary effort is normal. No respiratory distress. Breath sounds: Normal breath sounds and air entry. Abdominal: General: Bowel sounds are normal. There is no distension. Palpations: Abdomen is soft. Tenderness: There is abdominal tenderness in the right lower quadrant, suprapubic area and left lower quadrant. There is no guarding. Musculoskeletal: Cervical back: Full passive range of motion without pain, normal range of motion and neck supple. Right lower leg: No edema. Left lower leg: No edema. Skin: General: Skin is warm and dry. Capillary Refill: Capillary refill takes less than 2 seconds. Neurological: General: No focal deficit present. Mental Status: She is alert and oriented to person, place, and time. GCS: GCS eye subscore is 4. GCS verbal subscore is 5. GCS motor subscore is 6. Sensory: Sensation is intact. Motor: Motor function is intact. Coordination: Coordination is intact. Gait: Gait is intact. Psychiatric: Attention and Perception: Attention and perception normal. Mood and Affect: Mood and affect normal. Speech: Speech normal. Behavior: Behavior normal. Behavior is cooperative. Procedures [facility] Labs Reviewed URINALYSIS AND REFLEX TO MICROSCOPIC AND CULTURE - Abnormal Result Value Color, ur Yellow Clarity, ur Clear Specific gravity, ur >=1.030 (*) pH, urine 6.0 Protein, ur ql Negative Glucose, ur ql Negative Ketones, ur Negative Bilirubin, ur Negative Blood, ur Negative Urobilinogen, ur 0.2 Nitrite, ur Negative Leukocyte esterase, ur Negative UA reflex comment Value: Reflex conditions for microscopic UA and culture not met. Narrative: Urine pH is affected by diet, medications, systemic acid-base disturbances, and renal tubular function. pH may affect urinary stone formation. For example, urine pH below 6.0 may help reduce the tendency for calcium phosphate stones and pH greater than 6.0 may reduce the tendency for uric acid stone formation. Source: [place] [employer].Last revised 09-30-2017 CBC WITH AUTO DIFFERENTIAL - Abnormal WBC 9.3 Hgb 12.1 Hct 38.3 Plt 347 MPV 10.5 RBC 4.58 MCV 83.6 MCH 26.4 (*) MCHC 31.6 (*) RDW CV 15.9 (*) RDW SD 47.5 NRBC abs 0.00 HCG, BLOOD, QUANTITATIVE - Abnormal hCG, quant 455.1 (*) POCT HCG, URINE - Normal HCG, ur, POC Positive Lot Number [id number] QC Backgroud Clear Acceptable QC Control Line Acceptable COMPREHENSIVE METABOLIC PANEL Sodium 138 Potassium, pl 4.3 Chloride 103 CO2 23 Anion gap 12 BUN 10 Creatinine 0.70 Glucose 94 Calcium 9.6 Bilirubin, total <0.2 Protein, pl 7.6 Albumin 4.2 Alk phos 63 ALT 12 AST 14 DIFFERENTIAL AUTO Neutrophil abs 5.9 Imm gran abs 0.0 Lymphocyte abs 2.5 Monocyte abs 0.8 Eosinophil abs 0.1 Basophil abs 0.0 Neutrophil pct 63.1 Imm gran pct 0.4 Lymphocyte pct 26.7 Monocyte pct 8.1 Eosinophil pct 1.4 Basophil pct 0.3 MANUAL DIFFERENTIAL Differential Auto RBC morphology Consistent with RBC Indicies Platelet estimate Automated Count Confirmed EGFR eGFR 122 No orders to display BP 124/76 Pulse 96 Temp 36.7 ??C (98 ??F) (Oral) Resp 18 Wt 83.7 kg (184 lb 8.4 oz) SpO2 100% BMI 34.87 kg/m?? ED Course: Disposition: This examination was transcribed using the [employer] voice recognition system without human securities attorney. In an effort to expedite patient care, this report has not been adjusted for typographical, grammatical, and syntax by a trained medical technologist blood bank. Clinical Impression: Abdominal pain during in first trimester Power Schuler NP 09/09/22 1547 Cosigned by Marychuy Mckinnon MD at 09/15/2022 6:14 PM BLACKING MACHINE OPERATOR KING MACHINE OPERATOR KING MACHINE OPERATOR * Chaparrita Fleming RN - 09/08/2022 10:40 PM CST Pt arrives with c/o pelvic pain/lower back pain. Pt is approx. 5 weeks with hx of an ectopic. KING MACHINE OPERATOR documented in this encounter Plan of Treatment Upcoming Encounters Date Type Department Care Team (Late st Contact Info) Description 11/19/2024 Hospital Encounter [facility] [address] [place] [address] Gal Bass MD [address] [phone] [place] [address] documented as of this encounter Procedures Procedure Name Priority Date/Time Associated Diagnosis Comments POCT HCG, URINE Routine 09/08/2022 11:02 PM BLACKING MACHINE OPERATOR URINALYSIS AND REFLEX TO MICROSCOPIC AND CULTURE STAT 09/08/2022 10:56 PM BLACKING MACHINE OPERATOR EGFR STAT 09/08/2022 10:45 PM BLACKING MACHINE OPERATOR DIFFERENTIAL AUTO STAT 09/08/2022 10: 45 PM BLACKING MACHINE OPERATOR CBC WITH AUTO DIFFERENTIAL STAT 09/08/2022 10:45 PM BLACKING MACHINE OPERATOR MANUAL DIFFERENTIAL STAT 09/08/2022 1 0:45 PM BLACKING MACHINE OPERATOR HCG, BLOOD, QUANTITATIVE STAT 09/08/2022 10:45 PM BLACKING MACHINE OPERATOR COMPREHENSIVE METABOLIC PANEL STAT 09/08/2022 10:45 PM BLACKING MACHINE OPERATOR documented in this encounter Results * POCT hCG, urine (09/08/2022 11:02 PM BLACKING MACHINE OPERATOR) HCG, ur, POC Positive Lot Number [id number] QC Backgroud Clear Acceptable QC Control Line Acceptable Urine 09/08/2022 11:0 2 PM BLACKING MACHINE OPERATOR Marychuy Mckinnon MD POINT OF CARE TEST ORDERA BLES Final Result * (ABNORMAL) Urinalysis reflex to microscopic and culture Urine, clean voided (09/08/2022 10:56 PM BLACKING MACHINE OPERATOR) Color, ur Yellow Yellow JANNY Comment:Testing performed by : [facility], [address] [place] [address], [place]., [address] Clarity, ur Clear Clear JANNY Comment:Testing performed by : [address], [place]., [address] Specific gravity, ur >=1.030(A) 1.003 - 1.030 JANNY Comment:Testing performed by : [address], [place]., [address] pH, urine 6.0 JANNY Comment:Testing performed by : [address], [place]., [address] Protein, ur ql Negative Negative JANYN Comment:Testing performed by : [address], [place]., [address] Glucose, ur ql Negative Negative JANNY Comment:Testing performed by : [address], [place]., [address] Ketones, ur Negative Negative JANNY Comment:Testing performed by : [address] [address] Bilirubin, ur Negative Negative JANNY Comment:Testing performed by : [address], [place]., [address] Blood, ur Negative Negative JANNY Comment:Testing performed by : [address] [address] Urobilinogen, ur 0.2 <2.0 mg/dL JANNY Comment:Testing performed by : [address] [address] Nitrite, ur Negative Negative JANNY Comment:Testing performed by : [address] [address] Leukocyte esterase, ur Negative Negative JANNY Comment:Testing performed by : [address] [address] UA reflex comment Reflex conditions for microscopic UA and culture not met. JANNY Comment:Testing performed by : [address], [place]., [address] Urine, clean voided 09/08/2022 10:56 PM BLACKING MACHINE OPERATOR 09/08/2022 10:58 PM BLACKING MACHINE OPERATOR Narrative JANNY - 09/08/2022 11:06 PM BLACKING MACHINE OPERATOR ?? Urine pH is affected by diet, medications, systemic acid-base disturbances, and renal tubular function. ??pH may affect urinary stone formation. ??For example, urine pH below 6.0 may help reduce the tendency for calcium phosphate stones and pH greater than 6.0 may reduce the tendency for uric acid stone formation. Source: [facility] [employer]. Last revised 09-30-2017 us Marychuy Mckinnon MD LAB MICROBIOLOGY - GENERA L ORDERABLES Final Result JANNY [address] [facility] [place] [address] * eGFR (09/08/2022 10:45 PM BLACKING MACHINE OPERATOR) eGFR 122 mL/min/1. 73 m2 JANNY Comment: Interpretive Data Reference Interval Normal ?>/= [...] Current interpretive data was last reviewed 2021. Testing performed by: [facility], [address] [place] [address]., [address] Blood 09/08/2022 10:4 5 PM BLACKING MACHINE OPERATOR 09/08/2022 10:52 PM BLACKING MACHINE OPERATOR Marychuy Mckinnon MD LAB BLOOD ORDERABLES Sandy l Result Performing Organization Address [facility] de Phone Number [address] [place] [address] * Manual Differential (09/08/2022 10:45 PM BLACKING MACHINE OPERATOR) Differential Auto JANNY Comment:Testing performed by : [address] [address] RBC morphology Consistent with RBC Indicies JANNY Comment:Testing performed by : [address] [address] Platelet estimate Automated Count Confirmed JANNY Comment:Testing performed by : [address] [address] Blood 09/08/2022 10:4 5 PM BLACKING MACHINE OPERATOR 09/08/2022 10:52 PM BLACKING MACHINE OPERATOR Marychuy Mckinnon MD LAB BLOOD ORDERABLES Sandy l Result Performing Organization Address [facility] de Phone Number [address] [place] [address] * Differential, auto (09/08/2022 10:45 PM BLACKING MACHINE OPERATOR) Neutrophil abs 5.9 1.7 - 6.5 K/cumm JANNY Comment:Testing performed by : [address] [address] Imm gran abs 0.0 0.0 - 0.1 K/cumm JANNY Comment:Testing performed by : [address] [address] Lymphocyte abs 2.5 0.8 - 3.3 K/cumm JANNY Comment:Testing performed by : [address] [address] Monocyte abs 0.8 0.2 - 0.8 K/cumm [facility] Comment:Testing performed by : [address] [address] Eosinophil abs 0.1 0.0 - 0.5 K/cumm [facility] Comment:Testing performed by : [address], [place]., [address] Basophil abs 0.0 0.0 - 0.1 K/cumm [facility] Comment:Testing performed by : [address] [address] Neutrophil pct 63.1 % [facility] Comment: Interpretive Data Percent cell count reference ranges are not reported, since discordance with absolute values may lead to misinterpretation of CBC data. Current Interpretive Data was last revised on 2017. Testing performed by: [address] [address] Imm gran pct 0.4 % [facility] Comment: Interpretive Data Percent cell count reference ranges are not reported, since discordance with absolute values may lead to misinterpretation of CBC data. Current Interpretive Data was last revised on 2017. Testing performed by: [address] [address] Lymphocyte pct 26.7 % [facility] Comment: Interpretive Data Percent cell count reference ranges are not reported, since discordance with absolute values may lead to misinterpretation of CBC data. Current Interpretive Data was last revised on 2017. Testing performed by: [address] [address] Monocyte pct 8.1 % [facility] Comment: Interpretive Data Percent cell count reference ranges are not reported, since discordance with absolute values may lead to misinterpretation of CBC data. Current Interpretive Data was last revised on 2017. Testing performed by: [address] [address] Eosinophil pct 1.4 % [facility] Comment: Interpretive Data Percent cell count reference ranges are not reported, since discordance with absolute values may lead to misinterpretation of CBC data. Current Interpretive Data was last revised on 2017. Testing performed by: [address] [address] Basophil pct 0.3 % JANNY MCKEON Comment: Interpretive Data Percent cell count reference ranges are not reported, since discordance with absolute values may lead to misinterpretation of CBC data. Current Interpretive Data was last revised on 2017. Testing performed by: [facility], [address] [place] [address]., [address] Blood 09/08/2022 10:4 5 PM BLACKING MACHINE OPERATOR 09/08/2022 10:52 PM BLACKING MACHINE OPERATOR us Marychuy Mckinnon MD LAB BLOOD ORDERABLES Sandy l Result JANNY [address] [facility] [place] [address] * (ABNORMAL) hCG, blood, quantitative (09/08/2022 10:45 PM BLACKING MACHINE OPERATOR) hCG, quant 455.1(H) 0.0 - 5.0 IUnits/L JANNY MCKEON Comment: Ref Range High Interpretive Data Non- Female premenopausal: < or = 5.0 IUnits/L Men: < 5.0 IUnits/L Weeks of Gestation ? Reference Interval ?? 3 to 6 ? 5.8-31,795 IUnits/L ?? 7 to 10 ? 3,697-186,977 IUnits/L ??12 to 15 ?27,832- 70,791 IUnits/L ??16 to 18 ? 9,040- 58,179 IUnits/L The Kirill hCG Beta Quant assay procedure was used. Results from different manufacturers or methods may not be comparable. Serial testing should be performed using the same method. Current Interpretive Data was last revised on 2022. Testing performed by: [facility], [address] [place] [address]., [address] Blood 09/08/2022 10:4 5 PM BLACKING MACHINE OPERATOR 09/08/2022 10:52 PM BLACKING MACHINE OPERATOR us Marychuy Mckinnon MD LAB BLOOD ORDERABLES Sandy jose Result JANNY [address] [facility] [place] [address] * Comprehensive metabolic panel (09/08/2022 10:45 PM BLACKING MACHINE OPERATOR) Sodium 138 135 - 145 mmol/L JANNY Comment:Testing performed by : [address] [address] Potassium, pl 4.3 3.3 - 4.9 mmol/L JANNY Comment:Testing performed by : [address] [address] Chloride 103 97 - 110 mmol/L JANNY Comment:Testing performed by : [address] [address] CO2 23 22 - 32 mmol/L JANNY Comment:Testing performed by : [address] [address] Anion gap 12 2 - 15 mmol/L JANNY Comment:Testing performed by : [address] [address] BUN 10 8 - 25 mg/dL JANNY Comment:Testing performed by : [address] [address] Creatinine 0.70 0.60 - 1.10 mg/dL JANNY Comment:Testing performed by : [address] [address] Glucose 94 70 - 199 mg/dL JANNY Comment: Interpretive Data Fasting glucose >/= 126 [...] Current interpretive data was last revised 2017. Testing performed by: [address] [address] Calcium 9.6 8.5 - 10.3 mg/dL JANNY Comment:Testing performed by : [address] [address] Bilirubin, total <0.2 0.1 - 1.2 mg/dL JANNY Comment:Testing performed by : [address] [address] Protein, pl 7.6 6.5 - 8.5 g/dL JANNY Comment:Testing performed by : [address], [address] Albumin 4.2 3.5 - 5.0 g/dL JANNY Comment:Testing performed by : [address], [address] Alk phos 63 40 - 130 Units/L JANNY Comment:Testing performed by : [address], [address] ALT 12 7 - 45 Units/L JANNY Comment:Testing performed by : [address] [address] AST 14 10 - 45 Units/L JANNY Comment:Testing performed by : [address] [address] Blood 09/08/2022 10:4 5 PM BLACKING MACHINE OPERATOR 09/08/2022 10:52 PM BLACKING MACHINE OPERATOR us Marychuy Mckinnon MD LAB BLOOD ORDERABLES Sandy jose Result [facility] [address] [facility] [place] [address] * (ABNORMAL) CBC with auto differential (09/08/2022 10:45 PM BLACKING MACHINE OPERATOR) Pathologist [facility] WBC 9.3 3.8 - 9.9 K/cumm JANNY Comment:Testing performed by : [address] [address] Hgb 12.1 11.9 - 15.5 g/dL CERNER Comment:Testing performed by : [address], [address] Hct 38.3 35.6 - 45.5 % JANNY Comment:Testing performed by : [address] [address] Plt 347 150 - 400 K/cumm JANNY Comment:Testing performed by : [address] [address] MPV 10.5 9.1 - 12.3 fL JANNY Comment:Testing performed by : [address], [address] RBC 4.58 3.90 - 5.20 M/cumm JANNY Comment:Testing performed by : [address], [address] MCV 83.6 81.3 - 96.4 fL JANNY Comment:Testing performed by : [address] [address] MCH 26.4(L) 27.1 - 33.3 pg JANNY Comment:Testing performed by : [address] [address] MCHC 31.6(L) 32.3 - 35.7 g/dL JANNY Comment:Testing performed by : [address], [address] RDW CV 15.9(H) 11.1 - 14.9 % JANNY Comment:Testing performed by : [address], [address] RDW SD 47.5 35.7 - 48.1 fL JANNY Comment:Testing performed by : [address] [address] NRBC abs 0.00 0.00 - 0.01 K/cumm JANNY Comment:Testing performed by : [address] [address] Blood 09/08/2022 10:4 5 PM BLACKING MACHINE OPERATOR 09/08/2022 10:52 PM BLACKING MACHINE OPERATOR Marychuy Mckinnon MD LAB BLOOD ORDERABLES Edit ed Result - Final JANNY [address] [facility] [place] [address] documented in this encounter Visit Diagnoses Diagnosis Abdominal pain during in first trimester- Primary documented in this encounter Care Teams Patient Liaison Relationship Specialty Start Date End Date Brian Velarde DO [address] [place] [address] PCP - General Family Practice 07/25/20 documented as of this encounter
--- OUTSIDE RECORDS SUMMARY | 2024-09-18 05:16 | XMS_ITS | Encounter Summary ---
Author Organization [facility] Address [address] [place] [address] Phone Care Team Providers Care Printed Circuit Boards Router Name Role Phone Brian Velarde Primary Care Provider + Reason for Referral * Neurology (Routine) - Closed Specialty Diagnoses / Procedures Referred By Christina diana Referred To Contact Diagnoses Injury of ulnar nerve at forearm level, left arm, sequela Procedures EMG/NCV WITH ULTRASOUND -Please select the performing region: [facility] (All Locations); Procedure performed at: [facility] Ortho Physiatry Mookie Frank MD Phone: tel: fax: [facility] (All Locations) Referral ID Status Reason Start Date Expiration Date Visits Re quested Visits Authorized [id number] Closed 03/25/2022 04/24/2023 1 1 Encounter Details Date Type Department Care Team (Late st Contact Info) Description 03/25/2022 Orders Only [facility] Orthopaedic Surgery [address] [place] [address] Mookie Frank MD [address] [facility] [address] [place] [address] Injury of ulnar nerve at forearm level, [...] on file Legal Sex Female 11:21 AM CANDY COUNTER CLERK Gender Identity Not on file Sexual Orientation Not on file 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 Not on file Not on file Not on file documented as of this encounter Plan of Treatment Upcoming Encounters Date Type Department Care Team (Late st Contact Info) Description 11/19/2024 Hospital Encounter [facility] 1 [place] [address] Gal Bass MD [address] [phone] [place] [address] documented as of this encounter Results * EMG/NCV WITH ULTRASOUND -Please select the performing region: [facility] (All Locations); Procedure performed at: [facility] Physiatry (05/13/2022 11:28 AM CDT) Anatomical Region Laterality Modality Other Mookie Frank MD NEUROLOGY ORDERABLES Sandy l Result documented in this encounter Visit Diagnoses Diagnosis Injury of ulnar nerve at forearm level, left arm, sequela- Primary documented in this encounter Care Teams Printed Circuit Boards Router Relationship Specialty Start Date End Date Brian Velarde DO [address] [place] [address] PCP - General Family Practice 07/25/20 documented as of this encounter
--- OUTSIDE RECORDS SUMMARY | 2024-09-18 05:16 | XMS_ITS | Encounter Summary ---
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 Pt states that she is currently admitted and unable to make her appointment today at 3. LA OPERATOR * Telephone Encounter - Amy Vidhi - 08/21/2021 3:45 PM CST Patient called in today regarding problems that she is having and would like a call back Please and Thanks! LA OPERATOR documented in this encounter Plan of Treatment Upcoming Encounters Date Type Department Care Team (Late st Contact Info) Description 11/19/2024 Hospital Encounter [facility] 1 [place] [address] Gal Bass MD [address] [facility] [phone] [place] [address] documented as of this encounter Visit Diagnoses Not on filedocumented in this encounter Care Teams Air Bag Curer Relationship Specialty Start Date End Date Brian Velarde DO [address] [place] [address] PCP - General Family Practice 07/25/20 documented as of this encounter
--- OUTSIDE RECORDS SUMMARY | 2024-09-18 05:16 | XMS_ITS | Encounter Summary ---
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 [...] CL cyst noted Fluid in Cul-de-sac: none Rh Status: A Positive Beta Trend: Bhcg 08/18 @PP: 2152 Lab Results Component Value Date HCG 3,218.4 (H) 08/19/2021 HCG 6.0 (H) 12/04/2020 HCG 38.0 (H) 11/29/2020 HCG 638193.0 (H) 08/28/2016 12/2: Called and left VM about plan for repeat beta tomorrow in [facility] and to wait for result and proceed with management pending result including possible repeat US vs medical vs surgical treatment depending on beta value/imaging. Gave [facility] location information and clinic phone number to call about time pt plans to present tomorrow to [facility]. Reviewed return precautions and s/s ectopic . Lab ordered confirmed. Subsequently spoke to pt who denies abd pain or VB and is agreeable to plan, plansto presents to [facility] at 3pm tomorrow. Reviewed s/s ectopic and return precautions, pt vocalizes understanding. Consult resident updated. PLAN Next beta due: 08/21 in [facility] Contraception: Attempting conception [] Signed out with attending and abiola to remove from beta book. Attending Name: E CARE MANAGER documented in this encounter Plan of Treatment Upcoming Encounters Date Type Department Care Team (Late st Contact Info) Description 11/19/2024 Hospital Encounter [address] [address] Gal Bass MD [address] [phone] [place] [address] documented as of this encounter Visit Diagnoses Not on filedocumented in this encounter Care Teams Air Support Operations Operator Relationship Specialty Start Date End Date Brian Velarde DO [address] [place] [address] PCP - General Family Practice 07/25/20 documented as of this encounter
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
--- OUTSIDE RECORDS SUMMARY | 2024-09-18 05:16 | XMS_ITS | Encounter Summary ---
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 Gender Identity Not on file Sexual Orientation Not on file 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 Not on file Not on file Not on file documented as of this encounter Miscellaneous Notes * Telephone Encounter - David Gutierrez MD - 08/20/2021 1:04 PM DIRECTOR OF PEOPLE Problem of Unknown Anatomic Location Telephone Number Relationship maeverton Murphy [phone] (home) Home Yes [x] PUL Card Given [...] (H) 12/04/2020 HCG 38.0 (H) 11/29/2020 HCG 023102.0 (H) 08/28/201608/21: Called and left VM about plan for repeat beta tomorrow in [facility] and to wait for result and proceed with management pending result including possible repeat US vs medical vs surgical treatment depending on beta value/imaging. Gave [facility] location information and clinic phone number to call about time pt plans to present tomorrow to [facility]. Reviewed return precautions and s/s ectopic . Lab ordered confirmed. PLAN Next beta due: 08/21 in [facility] Contraception: Attempting conception [] Signed out with attending and abiola to remove from beta book. Attending Name: CTOR OF PEOPLE documented in this encounter Plan of Treatment Upcoming Encounters Date Type Department Care Team (Late st Contact Info) Description 11/19/2024 Hospital Encounter [address] [address] Gal Bass MD [address] [facility] [phone] [place] [address] documented as of this encounter Visit Diagnoses Not on filedocumented in this encounter Care Teams Wildlife Biology Internship Relationship Specialty Start Date End Date Brian Velarde DO [address] [place] [address] PCP - General Family Practice 07/25/20 documented as of this encounter
--- OUTSIDE RECORDS SUMMARY | 2024-09-18 05:17 | XMS_ITS | Encounter Summary ---
Author Organization [facility] Address [address] [place] [address] Phone Care Team Providers Care Wireworker Supervisor Name Role Phone Brian Velarde Primary Care Provider + Reason for Referral * Neurology (Routine) - Closed Specialty Diagnoses / Procedures Referred By Contlance t Referred To Contact Diagnoses Injury of ulnar nerve at forearm level, left arm, sequela Procedures EMG/NCV WITH ULTRASOUND - Mookie Frank MD Phone: tel: fax: [facility] (All Locations) Referral ID Status Reason Start Date Expiration Date Visits Re quested Visits Authorized [id number] Closed 03/03/2021 04/02/2022 1 1 * Consultation (Routine) - Closed Specialty Diagnoses / Procedures Referred By Contlance diana Referred To Contact Occupational Therapy Diagnoses Injury of ulnar nerve at forearm level, left arm, sequela Mookie Frank MD Phone: tel: fax: [facility] [address] [facility] [place] [address] [place] [address] Phone: tel: fax: Referral ID Status Reason Start Date Expiration Date V isits Requested Visits Authorized [id number] Closed Specialty Services Required 03/03/2021 04/02/2022 20 20 Question Answer PTRFR OT Evaluate and Treat Reason for Visit L ulnar nerve grafting in forearm Therapy options discussed with patient? Yes Location provided for therapy services is: Patient requested/Patient preferred Please select the performing region: External Order [171] To loc/pos [facility] [[id number]] Comments Hand Therapy ?? Evaluate and Treat Frequency/Duration: 2-3x/wk x 4-6 weeks ?? ROM: elbow/fingers no limits - emphasize passive finger ROM and edema control; forearm no limits wrist motion no limits Anti-claw stretching (please emphasize importance) Strengthening: as tolerated Restrictions: as above Orthosis: anti-claw orthosis (please emphasize importance of use) Scar massage Reason for Visit * Reason Comments Follow-up Encounter Details Date Type Department Care Team (Late st Contact Info) Description 03/03/2021 11:10 AM CDT Office Visit [facility] Orthopaedic Surgery [address] [facility] 1st [address] [place] [address] Mookie Frank MD [address] [facility] [address] [place] [address] Injury of ulnar nerve at forearm level, left arm, sequela (Primary Dx) Social History Tobacco Use Types Packs/Day Years Used Date Smoking Tobacco: Every Day Cigarettes 0.2 17 Started: 2007 Smokeless Tobacco: Never Alcohol Use Standard Drinks/Week Comments Yes 3 (1 standard drink = 0.6 oz pur e alcohol) occasional PHQ-2 Answer Date Recorded PHQ-2 Score 2 05/12/2019 Comments Unknown Sex and Gender Information Value Date Recorded Sex Assigned at Not on file Legal Sex Female 11:21 AM DERIVATIVES TRADER Gender Identity Not on file Sexual Orientation Not on file 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 CHIEF COMPLAINT: Follow-up left ulnar nerve reconstruction in the forearm ?? INTERIM HISTORY The patient returns for follow-up after left ulnar nerve reconstruction in the forearm (4.5cm suralcabled autograft + distal SETS), date of surgery August 14, 2020. ?? Nearly 7 months out from surgery. Had a nerve study done today. Does not have her anti claw splint with her, says she has been wearing it, has been working with therapy on her anti claw stretches. . ?? PHYSICAL EXAMINATION GENERAL: This is a well- [...] is warm to touch. NEUROLOGIC: No ataxia. ?? UPPER EXTREMITIES: ?? On the left side, elbow, forearm, wrist and hand motion are full and painless. Incisions are well healed. She has a keloid just proximal to her wrist crease, but this does not affect wrist extension.DPC is 0 for all digits. Ring and small finger have clawing posture, particularly PIP flexion that is a bit difficult to fully passively extend. MPs are not in extension. ?? REVIEW OF X-RAYS/STUDIES Today's nerve study final report is pending. Per Dr. Crowell, no motor units ADM or FDI. No signs of coaptation disruption on ultrasound. ?? IMPRESSION/DIAGNOSIS/ PLAN Nerve study did not show any signs of recovery at, but she is still relatively early from autograftreconstruction in the forearm. We will have her continue with therapy, work on stretching and usingher anti claw splint. Importance of this emphasized. Follow-up in 3 months with a repeat nerve study, discuss results on same day. ?? Mookie Frank M.D. [employer] Supervisor Hand and Upper Extremity [facility] Orthopedics Dr. Frank is dictating using speech recognition software. Tire Fixer variances may occur. documented in this encounter Miscellaneous Notes * Addendum Note - Fátima Brewer CMA - 03/03/2021 11:10 AM CDTAddended by: FÁTIMA BREWER on: 03/03/2021 11:46 AM Modules accepted: Orders documented in this encounter Plan of Treatment Upcoming Encounters Date Type Department Care Team (Late st Contact Info) Description 11/19/2024 Hospital Encounter [facility] 1 [place] [address] Gal Bass MD [address] [phone] [place] [address] Scheduled Referrals Name Type Priority Associated Diagnoses Order Schedule Ambulatory referral order to Occupational Therapy - Outpatient Referral Routine Injury of ulnar nerve at forearm level, left arm, sequela Ordered: 03/03/2021 documented as of this encounter Results * EMG/NCV WITH ULTRASOUND - (09/01/2021 9:08 AM DERIVATIVES TRADER) Anatomical Region Laterality Modality Other us Mookie Frank MD NEUROLOGY ORDERABLES Sandy l Result documented in this encounter Visit Diagnoses Diagnosis Injury of ulnar nerve at forearm level, left arm, sequela- Primary documented in this encounter Care Teams Wireworker Supervisor Relationship Specialty Start Date End Date Brian Velarde DO [address] [place] [address] PCP - General Family Practice 07/25/20 documented as of this encounter
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
--- OUTSIDE RECORDS SUMMARY | 2024-09-18 05:17 | XMS_ITS | Encounter Summary ---
Author Organization [facility] Address [address] [place] [address] Care Team Providers Care Dental Assistant Instructor Name Role Phone Syd Brian Eldridge Primary Care Provider + Encounter Details Date Type Department Care Team (Late st Contact Info) Description 08/07/2020 Telephone [facility] Testing Site - [facility]. 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 Diagnosis: ?? Department: ?? Sched Instruct: ?? Comment: ?? Order Specific Questions Question Answer Comment Testing types: Pre-procedure ?? Date of Px/chemo/treatment/placement/transfer 08/14/2020 ?? Testing site patient will be sent to: [facility], [place] ?? Date testing requested: 08/12/2020 ?? Testing: COVID-RNA ?? Does the patient currently work in a healthcare facility with direct patient contact? No ?? Is the patient a resident of a congregate care or living setting? No ?? Is the patient ? No ?? Please select the performing region: [facility] MOTIVE WARRANTY ADMINISTRATOR documented in this encounter Plan of Treatment Upcoming Encounters Date Type Department Care Team (Late st Contact Info) Description 11/19/2024 Hospital Encounter [facility] [address] [place] [address] Gal Bass MD [address] [facility] [phone] [place] [address] documented as of this encounter Results * COVID-19 Coronavirus RNA Nasopharyngeal (08/12/2020 1:08 PM AUTOMOTIVE WARRANTY ADMINISTRATOR) COVID-19 RNA Not Detected PEEWEE PARIS ([place]) Comment: Testing performed as a component of ??a specimen pool. ??Negative results should be treated as presumptive and, if inconsistent with clinical signs and symptoms or necessary for patient management, pooled samples should be tested individually. Negative results do not preclude SARS-CoV-2 infection and must not be used as the sole basis for patient management decisions. Negative results must be considered in the context of a patient? s recent exposures, history, presence of clinical signs and symptoms consistent with COVID-19. Interpretive Data Testing performed at [facility]. The Novel Coronavirus Assay (COVID-19) Real Time RT-PCR assay is for in vitro diagnostic use under FDA emergency use authorization only. A negative RT-PCR result does not preclude infection with COVID-19 and should not be used as the sole basis for treatment or other patient management decisions. Additional sample types have been validated according to CLIA regulations. ?? Current Interpretive Data was last revised on 2019. First COVID-19 test? No JANNY PARIS ([place]) Comment:Testing performed by : [facility], [address] [place] [address], [phone] Employeed in healthcare? No [facility] ([place]) Comment:Testing performed by : [facility], [address] [place] [address], [id number] status? No CE REBEKAH PARIS ([place]) Comment:Testing performed by : [facility], [address] [facility], [address] Group care resident? No THEODORANER [place] ([place]) Comment:Testing performed by : [facility], [address] [place] [address], [id number] Hospitalized? No [facility] ([place]) Comment:Testing performed by : [facility], [address] [facility], [address] Is patient in ICU? No THEODORANER [place] ([place]) Comment:Testing performed by : [facility], [address] [place] [address], [id number] Symptomatic as defined by CDC? No THEODORANER [place] ([place]) Comment:Testing performed by : [facility], [address] [place] [address], [id number] Nasopharyngeal 08/12/2020 1: 08 PM AUTOMOTIVE WARRANTY ADMINISTRATOR 08/12/2020 9:34 PM AUTOMOTIVE WARRANTY ADMINISTRATOR Narrative JANNY PARIS ([place]) - 08/13/2020 5:19 AM AUTOMOTIVE WARRANTY ADMINISTRATOR What is the reason for testing?->Screening prior to scheduled procedure or surgery us Ailyn Frank MD LAB MICROBIOLOGY - GENERA L ORDERABLES Final Result JANNY PARIS ([place]) [address] [facility] [place] [address] documented in this encounter Visit Diagnoses Diagnosis Pre-procedure lab exam- Primary Pre-procedural laboratory examination Pre-procedure lab exam Pre-procedural laboratory examination documented in this encounter Care Teams Dental Assistant Instructor Relationship Specialty Start Date End Date Brian Velarde DO [address] [place] [address] PCP - General Family Practice 07/25/20 documented as of this encounter
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
--- OUTSIDE RECORDS SUMMARY | 2024-09-18 05:17 | XMS_ITS | Encounter Summary ---
Author Organization [facility] Address [address] [place] [address] Phone Care Team Providers Care Paper Box Maker Name Role Phone Brian Velarde DO Primary Care Provider + Reason for Visit * Reason Comments Follow-up Encounter Details Date Type Department Care Team (Late st Contact Info) Description 08/18/2021 2:00 PM MONUMENT CARVER Office Visit [facility] Orthopaedic Surgery [address]st [address] [place] [address] Mookie Frank MD [address] [facility] [facility] [address] [place] [address] Injury of ulnar nerve at forearm level, [...] on file Legal Sex Female 11:21 AM MONUMENT CARVER Gender Identity Not on file Sexual Orientation Not on file 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 Not on file Not on file Not on file documented as of this encounter Progress Notes * Mookie Frank MD - 08/18/2021 2:00 PM CST RETURN PATIENT VISIT ?? CHIEF COMPLAINT:?Follow-up left ulnar nerve reconstruction in the forearm ?? INTERIM HISTORY The patient returns for??follow-up after left ulnar nerve reconstruction in the forearm??(4.5cm sural cabled autograft + distal SETS), date of surgery August 14, 2020. One year out from surgery. Wewas scheduled to have a nerve study today but had to reschedule it, currently rescheduled for 2 weeks from now. She has noticed some hypersensitivity in the dorsal cutaneous ulnar distribution. She is currently moving and has had a break in her therapy because of this.. ? PHYSICAL EXAMINATION GENERAL: This is a well- [...] side, elbow, forearm, wrist and hand motion are??full and painless. ??Incisions are well healed. ??She has a keloid just proximal to her wrist crease, but this does not affect wrist extension. ?? DPC is??0??for all digits. ??Ring and small finger have clawing posture, particularly PIP flexion that has become more difficult to fully passively extend. MPs are not in extension. Her FDP ring and smaller firing ?? REVIEW OF X-RAYS/STUDIES None today ?? IMPRESSION/DIAGNOSIS/ PLAN Her symptoms of dorsal cutaneous hypersensitivity suggest that there is some reinnervation occurring. I recommended she work diligently with our therapy team on passive stretches and night splinting to improve her extension, as well as a claw splint during the day. They will also instruct her on desensitization. I will call her with the results of the nerve study that is scheduled for 2 weeks from now, and I will see her back in 2 months for repeat clinical assessment.. ?? Mookie Frank M.D. Chemotherapist Hand and Upper Extremity [facility] Orthopedics ?? Dr. Frank is dictating using speech recognition software. Electronic Engineering Draftsperson variances may occur. MENT CARVER documented in this encounter Plan of Treatment Upcoming Encounters Date Type Department Care Team (Late st Contact Info) Description 11/19/2024 Hospital Encounter [facility] 1 [place] [address] Gal Bass MD [address] [facility] [phone] [place] [address] documented as of this encounter Visit Diagnoses Diagnosis Injury of ulnar nerve at forearm level, left arm, sequela- Primary documented in this encounter Care Teams Paper Box Maker Relationship Specialty Start Date End Date Brian Velarde DO [address] [place] [address] PCP - General Family Practice 07/25/20 documented as of this encounter
--- OUTSIDE RECORDS SUMMARY | 2024-09-18 05:17 | XMS_ITS | Encounter Summary ---
Author Organization [facility] Address [address] [place] [address] Phone Care Team Providers Care Circuit Breaker Assembler Name Role Phone Brian Velarde DO Primary Care Provider + Encounter Details Date Type Department Care Team (Late st Contact Info) Description 09/10/[address] [facility] Orthopaedic Surgery [facility] 6th [place] [address] [place] [address] Nedra Cuevas RMA Social History Tobacco Use Types Packs/Day Years [...] on file Legal Sex Female 11:21 AM VETERINARY DENTIST Gender Identity Not on file Sexual Orientation Not on file 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 Not on file Not on file Not on file documented as of this encounter Miscellaneous Notes * Telephone Encounter - Nedra Cuevas RMA - 09/10/2020 9:48 AM VETERINARY DENTIST Disability paperwork completed and sent to rosanna @ [phone] RINARY DENTIST documented in this encounter Plan of Treatment Upcoming Encounters Date Type Department Care Team (Late st Contact Info) Description 11/19/2024 Hospital Encounter [facility] 1 [place] [address] Gal Bass MD [address] [facility] [phone] [place] [address] documented as of this encounter Visit Diagnoses Not on filedocumented in this encounter Care Teams Circuit Breaker Assembler Relationship Specialty Start Date End Date Brian Velarde DO [address] [place] [address] PCP - General Family Practice 07/25/20 documented as of this encounter
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
--- OUTSIDE RECORDS SUMMARY | 2024-09-18 05:17 | XMS_ITS | Encounter Summary ---
Author Organization [facility] Healthcare Address [address] [place] [address] Care Team Providers Care Clinical Trial Data Manager Name Role Phone Brian Velarde Primary Care Provider + Reason for Visit * Reason Comments OT Treatment Encounter Details Date Type Department Care Team (Late st Contact Info) Description 11/25/2020 11:00 AM SQUAD BOSS Therapy [facility] Occupational Therapy [address] [place] [address] Luisa Gil OT Injury of ulnar nerve [...] on file Legal Sex Female 11:21 AM SQUAD BOSS Gender Identity Not on file Sexual Orientation Not on file 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 Pain: 0/10 Objective: No objective measures this session. Treatment Provided: MHP x's 10 minutes to increase tissue extensibility. Passive stretching for left MF, RF, SF digit extension 10 x each Scar massage, using dycem Wrist PRE's- flex/ext with 1# x 20 reps each Flex bar roll on table to facilitate digit extension placing other hand on top to help increase extension. Hammer twist x 20 reps (1/2#) 10x 1# mid shaft x 10 reps Reverse blocking for PIP extension X 20 each RF and SF. Assessment: Marnie demonstrates improved extensibility of MF, RF and SF FDP tendons with increased ease of achieving passive digit extension and also increased ability to perform reverse blocking for PIP extension. This is indicative of improving innervation, activation and strength of intrinsic hand muscles. Patient will Plan: Plan to fabricate forearm based digit extension next session to immobilize wrist during stretching of FDP's. Start Time: 11:00am End Time: 11:45am MURALI Vegas/L, CHT D BOSS documented in this encounter Plan of Treatment Upcoming Encounters Date Type Department Care Team (Late st Contact Info) Description 11/19/2024 Hospital Encounter [facility] 1 [place] [address] Gal Bass MD [address] [facility] [phone] [place] [address] documented as of this encounter Visit Diagnoses Diagnosis Injury of ulnar nerve at forearm level, left arm, sequela- Primary Contracture of finger joint, left documented in this encounter Care Teams Clinical Trial Data Manager Relationship Specialty Start Date End Date Brian Velarde DO [address] [place] [address] PCP - General Family Practice 07/25/20 documented as of this encounter
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
--- OUTSIDE RECORDS SUMMARY | 2024-09-18 05:17 | XMS_ITS | Encounter Summary ---
Author Organization 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 She states it comes out of no where. Patient continues to have a lot of tightness in her left RF/SF and ulnar hand that is uncomfortable. She also reports increased inching sensation. She continues to report a comfortable orthosis fit andfeels it is really helping her hand, she states it makes it easier to sleep. Objective: No objective measurements were taken this date. Treatment Provided: MHP x's 10 minutes to increase tissue extensibility. Passive stretching for left MF, RF, SF digit extension 10 x each Scar massage WB in to pink theraputty for digit extension Flex bar roll on table to facilitate digit extension placing other hand on top to help increase extension. Ball exercise for increased WE/WF 1 set x's 10 reps Hammer twist x 20 reps (1/2#) Reverse blocking for PIP extension X 10 each RF and SF. Assessment: Patient continues to present with decreased ROM of left RF, SF, wrist, and forearm. She has increased tingling in her left RF. She also continues to have increased scar tissue. She continues to report a comfortable orthosis fit. She verbalized understanding of continuation of HEP. She would benefitfrom continued OT services. ST)??10/28/20??Fabrication of PIP/DIP extension orthosis completed to facilitate buddhism full PROM to left digits by 1 [...] of left hand for typing by 12 weeks.?? Plan: Patient to return to therapy to continue plan of care. Will progress as able. She will return to [facility] next therapy visit. Start Time: 11:15 AM End Time: 12:00 PM Steffanie Whiting OTR/L documented in this encounter Plan of Treatment Upcoming Encounters Date Type Department Care Team (Late st Contact Info) Description 11/19/2024 Hospital Encounter [facility] 1 [place] [address] Gal Bass MD [address] [facility] [phone] [place] [address] documented as of this encounter Visit Diagnoses Diagnosis Injury of ulnar nerve at forearm level, left arm, sequela- Primary Contracture of finger joint, left documented in this encounter Care Teams Self Pay Representative Relationship Specialty Start Date End Date Brian Velarde DO [address] [place] [address] PCP - General Family Practice 07/25/20 documented as of this encounter
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
--- OUTSIDE RECORDS SUMMARY | 2024-09-18 05:17 | XMS_ITS | Encounter Summary ---
Author Organization [facility] Address [address] [place] [address] Phone Care Team Providers Care Music Sound Light Technician Name Role Phone Brian Velarde Primary Care Provider + Encounter Details Date Type Department Care Team (Late st Contact Info) Description 02/14/2021 Telephone [facility] Orthopaedic Surgery [address] [place] [address] Mookie Frank MD [address] [facility] [address] [address] [place] [address] Social History Tobacco Use Types Packs/Day Years [...] on file 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 Phone number is [phone]. Ext. [phone]. I left a message informing the disability office that she is unable to type with her left hand and is unable to lift with her left hand. documented in this encounter Plan of Treatment Upcoming Encounters Date Type Department Care Team (Late st Contact Info) Description 11/19/2024 Hospital Encounter [facility] 1 [place] [address] Gal Bass MD [address] [phone] [place] [address] documented as of this encounter Visit Diagnoses Not on filedocumented in this encounter Care Teams Music Sound Light Technician Relationship Specialty Start Date End Date Brian Velarde DO [address] [place] [address] PCP - General Family Practice 07/25/20 documented as of this encounter
--- OUTSIDE RECORDS SUMMARY | 2024-09-18 05:17 | XMS_ITS | Encounter Summary ---
Author Organization [facility] Address [address] [place] [address] Phone Care Team Providers Care Head Scorer Name Role Phone Brian Velarde Primary Care Provider + Reason for Visit * Neurology (Routine) - Closed Specialty Diagnoses / Procedures Referred By Christina diana Referred To Contact Diagnoses Injury of ulnar nerve at forearm level, left arm, sequela Injury of median nerve at left forearm level, subsequent encounter Procedures EMG/NCV -Please select the performing region: [facility] (All Locations); Procedure performed at: [facility] Ortho Physiatry Dy, Mookie Ascencio MD Phone: tel: fax: [facility] (All Locations) Referral ID Status Reason Start Date Expiration Date Visits Re quested Visits Authorized [id number] Closed 08/01/2020 08/31/2021 1 1 Encounter Details Date Type Department Care Team (Late st Contact Info) Description 08/12/2020 4:00 PM TAXI PROPRIETOR Diagnostic [facility] Orthopaedic Surgery [address] [place] [address] Chidi Crowell MD [address] [facility] [address] [place] [address] Injury of ulnar nerve at forearm level, left arm, sequela; Injury of median nerve at left forearm [...] on file Legal Sex Female 11:21 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 Please see EMG and Nerve Conduction report for details. (Located under Procedure and/or Media tab). Chidi Crowell M.D. Convex Grinder Operator Division of Physical Medicine and Rehabilitation Department of Orthopaedic Surgery [facility] [employer] [facility] Chidi Crowell M.D. dictating using M Modal. Telecommunication Equipment Repairer variances may occur. PROPRIETOR documented in this encounter Plan of Treatment Upcoming Encounters Date Type Department Care Team (Late st Contact Info) Description 11/19/2024 Hospital Encounter [facility] 1 [place] [address] Gal Bass MD [address] [facility] [phone] [place] [address] documented as of this encounter Procedures Procedure Name Priority Date/Time Associated Diagnosis Comments EMG/NCV Routine 08/12/2020 Injury of ulnar nerve at forearm level, left arm, sequela Injury of median nerve at left forearm level, subsequent encounter documented in this encounter Results * EMG/NCV -Please select the performing region: [facility] (All Locations); Procedure performed at: [facility] Physiatry (08/12/2020) Anatomical Region Laterality Modality Other us Mookie Frank MD NEUROLOGY ORDERABLES Sandy l Result documented in this encounter Visit Diagnoses Diagnosis Injury of ulnar nerve at forearm level, left arm, sequela Injury of median nerve at left forearm level, subsequent encounter documented in this encounter Care Teams Head Scorer Relationship Specialty Start Date End Date Brian Velarde DO [address] [place] [address] PCP - General Family Practice 07/25/20 documented as of this encounter
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
--- OUTSIDE RECORDS SUMMARY | 2024-09-18 05:17 | XMS_ITS | Encounter Summary ---
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 Yes Location provided for therapy services is: Patient requested/Patient preferred Please select the performing region: External Order [[id number]] To loc/pos Vivienne Alvarenga [[id number]] Comments Ulnar nerve transposition postop protocol Evaluate/treat as needed, include edema control and scar massage MOTION: Phase 1: out of splint for elbow, forearm, and wrist ROM; A/AA/PROM Finger ROM PRECAUTIONS: Nerve transfer precautions (no wrist extension beyond 30', no combination wrist extension/supination ) STRENGTHENING: Phase 1: None ORTHOSIS: Phase 1: long-arm splint (elbow at 70' flexion, wrist and forearm at neutral FREQUENCY/DURATION: 2-3/wk x 4-6 weeks NUE STAMP CLERK Reason for Visit * Reason Comments Post-op Encounter Details Date Type Department Care Team (Late st Contact Info) Description 08/23/2020 8:20 AM REVENUE STAMP CLERK Office Visit 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 Overall doing well, although she has some substantial pain when she tries to move her fingers. She has some stinging sensations at the bottom of her foot when she tries to step on her left side, where we took the sural nerve. PHYSICAL EXAMINATION Wounds are healing well, sutures left in place. No signs of infection. No warmth or drainage. Drain removed. Passive finger motion is limited due to pain. FDP ring and small intact. No change in intrinsic function, as expected. Left lower extremity wound is healing well, subcuticular closure was used. REVIEW OF X-RAYS/STUDIES None today IMPRESSION/DIAGNOSIS/PLAN Progressing as expected. We will have her go to therapy, particularly to work on unrestricted finger range of motion. We will also have her go into a long-arm splint, but she can come out for elbow forearm and wrist motion. Follow-up in 1 week for suture removal. TEACHING ATTESTATION: Please note that I personally saw and examined the patient today and activelyparticipated in the history, physical examination, review of studies, and medical decision making. I agree with the documentation initially composed by Annabella Darling MD and any documentation editshave been included above. Mookie Frank M.D. Public Health Nurse Hand and Upper Extremity [facility] Orthopedics Dr. Frank is dictating using speech recognition software. Emergency Medical Service Manager variances may occur. 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
--- OUTSIDE RECORDS SUMMARY | 2024-09-18 05:17 | XMS_ITS | Encounter Summary ---
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 to be cared for in the hospital overnight. Instructions For Your Medications: Pre-Surgery Instructions: Medication Instructions ??? acetaminophen (TYLENOL) 500 mg tablet Take on day of surgery if needed ??? acetaminophen-codeine (TYLENOL with CODEINE #3) 300-30 mg per tablet Take on day of surgery if needed General Instructions For Medications: ?? For medications that you are instructed to take on the morning of surgery, take the medications with a few sips of water. ?? Stop all of these medications 7-14 days prior to your surgery: Vitamin E, Herbal medicines, DietPills ?? If you have pain, you may take tylenol (acetaminophen). Do not take more than 6 tablets or 3000 mg (3 g) within a 24 period. Call your surgeon and the CPAP clinic if any of the following happens before surgery: ?? Any changes in your health ?? You have a fever ?? You have any signs of an infection (chest, urinary tract or tooth) ?? You have been to the Emergency Room or were in the hospital ?? You have started taking any new medications ?? You have questions about a bowel prep or special diet before surgery [facility] * Perioperative Nursing Note - Elma Whitmore RN - 08/07/2020 3:13 PM [facility] Perioperative Nursing Note Telephone Preoperative Evaluation ([facility]) - TELEPHONE ONLY, NO PHYSICAL EXAM Date: 08/07/20 Vitals: 08/07/20 1505 Weight: 86.2 kg (190 lb) Height: 177.8 cm (5' 10 ) CHEST CIRCUMFERENCE: Social History Tobacco Use Smoking Status Current Every Day Smoker ??? Packs/day: 0.15 ??? Types: Cigarettes ??? Start date: 2007 Smokeless Tobacco Never Used Substance and Sexual Activity Alcohol Use Yes ??? Alcohol/week: 3.0 standard drinks ??? Types: 3 Glasses of wine per week Comment: occasional Substance and Sexual Activity Drug Use Not Currently ??? Types: Marijuana Comment: edible thc Outpatient Medications Marked as Taking for the 08/14/20 encounter (Hospital Encounter) Medication Sig Dispense Refill ??? acetaminophen (TYLENOL) 500 mg tablet Take 1,000 mg by mouth every 6 (six) hours as needed for pain ??? acetaminophen-codeine (TYLENOL with CODEINE #3) 300-30 mg per tablet Take 1 tablet by mouth every 6 (six) hours as needed for pain (Patient taking differently: Take 1 tablet by mouth every 6 (six) hours as needed for pain ) 28 tablet 0 Implants Implant [employer] [id number] Evos Mini 121mm 20 Hole Flex Low Profile Variable Angle Small - [id number] - Implanted (Left) Ulna Inventory item: [employer] [id number] EVOS MINI 121MM 20 HOLE FLEX LOW PROFILE VARIABLE ANGLE SMALL Model/Cat number: [id number] Customer Program Manager: [employer] As of 06/25/2020 Status: Implanted [employer] [id number] Evos Mini 2.4mm 3.8mm 12mm Self Tap Accredited Pharmacy Technician Long Bone SmallBone - [id number] - Implanted (Left) Ulna Inventory item: [employer] [id number] Evos Mini 2.4mm 3.8mm 12mm Self Tap DriverLong Bone Small Bone Model/Cat number: [id number] Customer Program Manager: [employer] As of 06/25/2020 Status: Implanted [employer] [id number] Evos Mini 2.4mm 3.8mm 11mm Self Tap Accredited Pharmacy Technician Long Bone SmallBone - [id number] - Implanted (Left) Ulna Inventory item: [employer] [id number] Evos Mini 2.4mm 3.8mm 11mm Self Tap DriverLong Bone Small Bone Model/Cat number: [id number] Customer Program Manager: [employer] As of 06/25/2020 Status: Implanted [employer] [id number] 2.4mm 3.8mm 15mm Self Retaining Screwdriver Self Tap Flat Head - [id number] - Implanted (Left) Ulna Inventory item: [employer] [id number] 2.4mm 3.8mm 15mm Self Retaining Screwdriver Self Tap Flat Head Model/Cat number: [id number] Customer Program Manager: [employer] As of 06/25/2020 Status: Implanted [employer] [id number] Evos 2.4mm 14mm Self Tap Self Retaining Drive Small Bone Long - [id number] - Implanted (Left) Ulna Inventory item: [employer] [id number] Evos 2.4mm 14mm Self Tap Self Retaining Drive Small Bone Long Model/Cat number: [id number] Customer Program Manager: [employer] As of 06/25/2020 Status: Implanted [employer] [id number] Evos Mini 2.4mm 3.8mm 18mm Self Tap Accredited Pharmacy Technician Long Bone SmallBone - [id number] - Implanted (Left) Ulna Inventory item: [employer] [id number] EVOS MINI 2.4MM 3.8MM 18MM SELF TAP DRIVERLONG BONE SMALL BONE Model/Cat number: [id number] Customer Program Manager: [employer] As of 06/25/2020 Status: Implanted [employer] [id number] Evos 3.5mm 12mm Self Tap Cortex Screw Bone Sterile - [id number] - Implanted (Left) Ulna Inventory item: [employer] [id number] Evos 3.5mm 12mm Self Tap Cortex Screw Bone Sterile Model/Cat number: [id number] Customer Program Manager: [employer] As of 06/25/2020 Status: Implanted [employer] [id number] Evos 3.5mm 18mm Self Tap Cortex Screw Bone Sterile - [id number] - Implanted (Left) Ulna Inventory item: [employer] [id number] Evos 3.5mm 18mm Self Tap Cortex Screw Bone Sterile Model/Cat number: [id number] Customer Program Manager: [employer] As of 06/25/2020 Status: Implanted [employer] [id number] Evos 3.5mm 14mm Self Tap Lock Screw Bone Sterile - [id number] - Implanted (Left) Ulna Inventory item: [employer] [id number] Evos 3.5mm 14mm Self Tap Lock Screw Bone Sterile Model/Cat number: [id number] Customer Program Manager: [employer] As of 06/25/2020 Status: Implanted Plate [employer] [id number] Evos 208mm 18 Hole Lock Compression Plate Bone Sterile 3.5mm- [id number] - Implanted (Left) Ulna Inventory item: [employer] [id number] Evos 208mm 18 Hole Lock Compression Plate Bone Sterile 3.5mm Model/Cat number: [id number] Customer Program Manager: [employer] Lot number: [id number] Size: 3.5 mm,18 holes As of 06/25/2020 Status: Implanted SKIN Piercings Remaining: Yes SCREENINGS Elmer index score: 95 NUTRITION PATIENT CARE PLANNING Advance Directives (For Healthcare) Advance Directive: Patient does not have advance directive Communication/Dietitian Teacher Needs Communication Needs: None Patient's Preferred Language: Peruvian Is an loading unit operator powder charging needed? : No Assistive Devices/DME: None Discharge Planning Type of Residence: Apartment Living Arrangements: Spouse/significant other Support Systems: Spouse/significant other Patient expects to be discharged to:: Private residence COVID Screening Covid-19 Screening In the last 10 days have you had any new or worsening cough, SOB, fever (>=100F), body aches, loss of taste or smell, diarrhea or vomiting, or sore throat?: No Have you had close contact with anyone with confirmed or suspected COVID-19 in the past 3 weeks?: No Do you live in or work in a congregate living facility (ex. assisted living/[place] [facility] facility, fdc, long term)?: No Have you tested positive for COVID-19 within the last 14 days?: No Have you previously tested positive for COVID-19? No Have you had a COVID -19 exposure within the past 14 days? No Were both or all people exposed wearing masks (cloth, isolation, surgical or N95)? N/A TESTING PLAN-See Instructions for plan We recommend you Self-Isolate after COVID Testing: Stay at home, if possible until your surgery date. Maintain a 6 foot distance from other people (social distancing). Avoid touching your eyes, nose and mouth with unwashed hands. Wash your hands often with soap and water for at least 20 seconds. Use an alcohol- based hand head track coach that contains at least 60% alcohol if soap and water are not available. ADDITIONAL COMMENTS/ FOLLOW UP [facility] * Pre-Procedure Instructions - Elma Whitmore RN - 08/07/2020 3:07 PM [facility] [employer] PRE-SURGICAL INSTRUCTIONS ??? General Information ?? Surgery location provided to patient. ?? Arrival time and surgical time will be provided by your surgeon. ?? Wear something clean, loose, comfortable and easy to get in and out of. ?? Leave your valuables and any jewelry at home (No metal or piercings are allowed in the operatingroom) ?? Bring your insurance card, a photo ID (like a Accredited Pharmacy Technician's license) and a method of payment for any insurance copay, deductible, or copay for discharge medications. ?? Bring a complete, up to date list of all of your medications including any over the counter medications or supplements you may take. ? How To Prepare Your Skin For Surgery Antiseptic/antibacterial soap will decrease the amount of germs on your skin. It is important to minimize the risk of getting an infection by doing the following: ?? Change all the linens on the bed the night before surgery so you are sleeping on clean fresh sheets and pillowcases. ?? Shower the evening before and the morning of surgery with an antibacterial soap such as Dial or a surgical soap known as chlorhexidine (Hibiclens). You can purchase this soap at any pharmacy or department store or come by our CPAP clinic and we will give it to you free of charge. Do not use thissoap on your face or hair. ?? Wash your hair and face with your regular shampoo (no conditioners) and facial cleanser. ?? Take a shower using ?? cup (2 oz.) of antiseptic soap applied to a clean fresh washcloth. Scrub your entire body from the neck down. If you can't reach the surgical site, such as your back, have someone help you with your shower. Step out of the water and leave soap on your skin for 2 minutes prior to rinsing off. Rinse thoroughly and dry yourself off with a clean fresh dry towel. ?? Wear clean clothes or pajamas to sleep in and on morning of surgery. ?? Nothing extra on the skin or hair such as deodorant, makeup, hair products, lotions, powders, Vaseline, creams, or perfumes the evening before and the morning of surgery. ?? The morning of the surgery repeat the shower process with the remaining ?? cup (2 oz.) of surgical scrub using another fresh wash cloth and towel. ?? Do not shave the morning of surgery. ?? REMEMBER no deodorant, make-up, lotions, powders, creams, Vaseline, oils, conditioners or hair products the morning of the surgery. . COVID TESTING PLAN COVID Test Request Placed in Epic to [facility]. Test to be performed on 08/12/20 If you have COVID testing or should have COVID testing for your surgery/procedure, please read below section: If you need to reschedule your COVID test to a different location or if your surgery gets rescheduled, you MUST call [phone] Wednesday-Wednesday 8am-4:30pm to get your COVID testing rescheduled or your lab order will not be available at Testing Sites. COVID Testing is only valid for up to 96 hours prior to surgery date, unless otherwise specified. If you are unable to reach staff at the above phone number, please call the CPAP Staff at [phone]. This number cannot order a lab test, but can attempt to contact the above number/staff to assist you. We are available Wednesday-Wednesday 8am-4:30pm . We recommend you Self-Isolate after COVID Testing: Stay at home, if possible until your surgery date. Maintain a 6 foot distance from other people (social distancing). Avoid touching your eyes, nose and mouth with unwashed hands. Wash your hands often with soap and water for at least 20 seconds. Use an alcohol- based hand head track coach that contains at least 60% alcohol if soap and water are not available. ALL Patients should read below section: All visitors/patients are being asked to wear a clean mask when entering the hospital. COVID 19 Updates & Visitor Policy: Please access [email or web address] for the most updated information. Surgery Times: ??? For patients having surgery @ [facility], [facility], if your surgeon's office has not notified you of your surgery time by NOON THE BUSINESS DAY BEFORE your surgery, please call [phone] and ask for your surgeon's office [facility] [employer] documented in this encounter Plan of Treatment Upcoming Encounters Date Type Department Care Team (Late st Contact Info) Description 11/19/2024 Hospital Encounter [facility] [address] [place] [address] Gal Bass MD [address] [facility] [phone] [place] [address] documented as of this encounter Procedures Procedure Name Priority Date/Time Associated Diagnosis Comments NERVE GRAFT 08/14/2020 12:59 PM [facility] [employer] Injury of left ulnar nerve, unspecified injury location, initial encounter Injury of left median nerve, unspecified injury location, initial encounter Special Needs MICROSCOPE, PREP LEFT LEG NEUROLYSIS PERIPHERAL NERVE 08/14/2020 12:59 PM [employer] [employer] Injury of left ulnar nerve, unspecified injury location, initial encounter Injury of left median nerve, unspecified injury location, initial encounter Special Needs MICROSCOPE, PREP LEFT LEG EXPLORATION NERVE - ARM 08/14/2020 12:59 PM SUPER[employer] PROCESSING Injury of left ulnar nerve, unspecified injury location, initial encounter Injury of left median nerve, unspecified injury location, initial encounter Special Needs MICROSCOPE, PREP LEFT LEG documented in this encounter Visit Diagnoses Diagnosis Injury of left ulnar nerve Injury of left median nerve Injury of left ulnar nerve, unspecified injury location, initial encounter Injury of left median nerve, unspecified injury location, initial encounter documented in this encounter Admitting Diagnoses Diagnosis Injury of left ulnar nerve Injury of left median nerve documented in this encounter Administered Medications Inactive Administered Medications - up to 3 most recent administrations Medication Order MAR Action Action Date Dose Rate Site bupivacaine (MARCAINE) 0.25 % (2.5 mg/mL) preservative free injection As needed, Starting on Wed08/14/20 at 1605, Intra-Op Given 08/14/2020 4:09 PM [employer] 10 mL Surgical Site Given 08/14/2020 4:06 PM SUPER[employer]ESSING 20 mL Alvarado rgical Site Given 08/14/2020 4:05 PM SUPER[employer]ESSING 15 mL Alvarado rgical Site HYDROcodone-acetaminophen (NORCO) 5-325 mg per tablet 1 tablet 1 tablet, oral, Once, On Wed08/14/20 at 1845, For 1 dose, Phase I, Indications: PainIndications:Pain Given 08/14/2020 6:11 PM [employer] 1 tablet HYDROmorphone (DILAUDID) injection 0.2 mg 0.2 mg, intravenous, Administer over 2 Minutes, Every 10 min PRN, 1st line for pain, Starting on Wed08/14/20 at 1646, Phase I, Notify Anesthesiologist if total PACU dose reaches 2 mg and pain score 5/10 or more., Indications: PainIndications:Pain Given 08/14/2020 6:[address] 0.2 mg Given 08/14/2020 5:42 PM [employer] 0.2 mg Given 08/14/2020 5:29 PM [employer]PER[employer]ESSING 0.2 mg Lactated Ringer's (LR) infusion 30 mL/hr, intravenous, Continuous, Starting on Wed08/14/20 at 1145, Pre-Op New Bag 08/14/2020 4:37 PM [employer] New Bag 08/14/2020 2:34 PM SUPER[employer]ESSING New Bag 08/14/2020 12:38 PM SUPER[employer] PROCESSING sodium chloride 0.9 % irrigation As needed, Starting on Wed08/14/20 at 1329, Intra-Op Given 08/14/2020 1:29 PM [employer]ESSING 2,000 mL thrombin-recombinant 5,000 unit solution As needed, Starting on Wed08/14/20 at 1452, Intra-Op Given 08/14/2020 2:52 PM [employer]PER[employer]ESS[employer] 5,000 Units documented in this encounter Discontinued Medications Medication Sig Discontinue Reason Start Date End Da te ARIPiprazole (ABILIFY) 5 mg tabletIndications:Bipola r Disorder in Remission Take 5 mg by mouth nightly Error 08/11/2019 08/07/2020 clonazePAM (KlonoPIN) 2 mg tablet Take 2 mg by mouth 3 times daily as needed Error 07/11/2019 08/07/2020 escitalopram (LEXAPRO) 20 mg tabletIndications:Anxiet y with Depression Take 20 mg by mouth every morning Error 05/30/2019 08/07/2020 metoprolol tartrate (LOPRESSOR) 50 mg immediate release tablet Take 50 mg by mouth 2 times daily Error 04/14/2019 08/07/2020 norgestimate-ethinyl estradioL (Estarylla) 0.25-35 mg-mcg per tablet TK 1 T PO D Error 04/14/2019 08/07/2020 senna-docusate (PERICOLACE) 8.6-50 mgIndications:constipati on Take 2 tablets by mouth 2 (two) times a day Error 06/26/2020 08/07/2020 sertraline (ZOLOFT) 50 mg tabletIndications:anxiet y Take 50 mg by mouth daily Error 11/28/2018 08/07/2020 documented as of this encounter Historical Medications * This list may reflect changes made after this encounter. acetaminophen (TYLENOL) 500 mg tablet Take 1,000 mg by mouth every 6 (six) hours as needed for pain 08/31/2021 added in this encounter Active and Recently Administered Medications Times are shown in [facility] [employer]. Scheduled Medication Order 08/12/2020 08/13/2020 08/14/2020 HYDROcodone-acetaminophen (NORCO) 5-325 mg per tablet 1 tablet (COMPLETED) 1 tablet, oral, Once, On Wed08/14/20 at 1845, For 1 dose, Phase I, Indications: Pain 1810 (Given - Provid er: Danitza Pandey RN) Continuous Medication Order 08/12/2020 08/13/2020 08/14/2020 Lactated Ringer's (LR) infusion 30 mL/hr, intravenous, Continuous, Starting on Wed08/14/20 at 1145, Pre-Op 1238 (New Bag - Prov ider: Cristina Everett CRNA)1434 (New Bag - Provider: Cristina Everett CRNA)1637 (New Bag - Provider: Binh De La Fuente CRNA)1653 (Stopped - Provider: Binh De La Fuente CRNA) Lactated Ringer's (LR) infusion 125 mL/hr, intravenous, Continuous, Starting on Wed08/14/20 at 1730, Phase I 1730 (Due) PRN Medication Order 08/12/2020 08/13/2020 08/14/2020 bupivacaine (MARCAINE) 0.25 % (2.5 mg/mL) preservative free injection (CANCELED) As needed, Starting on Wed08/14/20 at 1605, Intra-Op 1605 (Given - Provid er: Mookie Frank MD)1606 (Given - Provider: Mookie Frank MD)1609 (Given - Provider: Mookie Frank MD) diphenhydrAMINE (BENADRYL) injection 12.5 mg 12.5 mg, intravenous, Every 15 min PRN, itching, Starting on Wed08/14/20 at 1646, For 2 doses, Phase I, Max cumulative dose 50 mg., Indications: Itching fentaNYL (SUBLIMAZE) preservative free injection 50 mcg 50 mcg, intravenous, Once as needed, uncontrolled pain on PACU admission, Starting on Wed08/14/20 at 1646, For 1 dose, Phase I, Then proceed to PACU 1st line analgesic., Indications: Pain HYDROmorphone (DILAUDID) injection 0.2 mg 0.2 mg, intravenous, Administer over 2 Minutes, Every 10 min PRN, 1st line for pain, Starting on Wed08/14/20 at 1646, Phase I, Notify Anesthesiologist if total PACU dose reaches 2 mg and pain score 5/10 or more., Indications: Pain 1729 (Given - Provid er: Danitza Pandey RN)1742 (Given - Provider: Danitza Pandey RN)1818 (Given - Provider: Danitza Pandey RN) meperidine (DEMEROL) preservative free injection 12.5 mg 12.5 mg, intravenous, Every 10 min PRN, shivering, Starting on Wed08/14/20 at 1646, For 2 doses, Phase I, Max cumulative dose 25 mg., Indications: Shivering naloxone (NARCAN) 0.4 mg/mL injection 0.04-0.4 mg 0.04-0.4 mg, intravenous, Once as needed, other, excessive sedation/respiratory depression, Starting on Wed08/14/20 at 1646, For 1 dose, Phase I, Dilute 0.4 mg with 9 mL NS (final concentration 0.04 mg/mL). For respiratory depression (respiratory rate less than 6), administer 0.4 mg IVP over 30 seconds. For excessive sedation administer 0.04 mg (1 mL) every 1 minute until desired level of alertness. For IV, administer over 30 seconds., Indications: Opioid Toxicity ondansetron (ZOFRAN) injection 4 mg 4 mg, intravenous, Administer over 2 Minutes, Once as needed, nausea, vomiting, Starting on Wed08/14/20 at 1646, For 1 dose, Phase I, Proceed to prochlorperazine if ondansetron has been given within the last 6 hours. prochlorperazine (COMPAZINE) injection 10 mg 10 mg, intravenous, Administer over 2 Minutes, Once as needed, nausea, vomiting, Starting on Wed08/14/20 at 1646, For 1 dose, Phase I, If nausea/vomiting not relieved by ondansetron within 30 minutes or if ondansetron has been given within the last 6 hours. sodium chloride 0.9 % irrigation (CANCELED) As needed, Starting on Wed08/14/20 at 1329, Intra-Op 1329 (Given - Provid er: Mookie Frank MD) thrombin-recombinant 5,000 unit solution (CANCELED) As needed, Starting on Wed08/14/20 at 1452, Intra-Op 1452 (Given - Provid er: Mookie Frank MD - Comment: gelfoam soaked in thrombin) documented in this encounter Orders Medications Ordered That Dmitry ht Not Have Been Administered Count Last Ordered Date First Ordered Date bupivacaine (MARCAINE) 0.5 % (5 mg/mL) preservative free injection 1 08/14/2020 diphenhydrAMINE (BENADRYL) i njection 12.5 mg 1 08/14/2020 fentaNYL (SUBLIMAZE) preserv ative free injection 50 mcg 1 08/14/2020 Lactated Ringer's (LR) infusion 2 0 lidocaine (XYLOCAINE) 10 mg/ mL (1 %) injection 2-10 mg 1 08/14/2020 meperidine (DEMEROL) preserv ative free injection 12.5 mg 1 08/14/2020 naloxone (NARCAN) 0.4 mg/mL injection 0.04-0.4 mg 1 08/14/2020 ondansetron (ZOFRAN) injection 4 mg 1 08/14 prochlorperazine (COMPAZINE) injection 10 mg 1 08/14/2020 sodium chloride 0.9% flush 0.5-20 mL 1 07/22 documented in this encounter Care Teams Senior Executive Compensation Analyst Relationship Specialty Start Date End Date Brian Velarde DO [address] [place] [address] PCP - General Family Practice 07/25/20 documented as of this encounter
--- OUTSIDE RECORDS SUMMARY | 2024-09-18 05:17 | XMS_ITS | Encounter Summary ---
Author Organization [facility] Healthcare Address [address] [place] [address] Care Team Providers Care Grain Oilseed Or Pasture Farm Worker Name Role Phone Brian Velarde DO Primary Care Provider + Encounter Details Date Type Department Care Team (Late st Contact Info) Description 08/12/2020 1:05 PM CANNON CREWMEMBER Lab [address] [phone] Mookie Frank MD [address] [facility] [address] [place] [address] Pre-procedure lab exam Discharge Disposition: Discharge to home or self [...] on file Legal Sex Female 11:21 AM CANNON CREWMEMBER Gender Identity Not on file Sexual Orientation Not on file 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 Not on file Not on file Not on file documented as of this encounter Discharge Disposition Disposition Code Departure Means Destination Discharge to home or self care documented in this encounter Plan of Treatment Upcoming Encounters Date Type Department Care Team (Late st Contact Info) Description 11/19/2024 Hospital Encounter [address] [address] Gal Bass MD [address] [facility] [phone] [place] [address] documented as of this encounter Procedures Procedure Name Priority Date/Time Associated Diagnosis Comments COVID-19 CORONAVIRUS RNA Routine 08/12/2020 1:08 PM CANNON CREWMEMBER Pre-procedure lab exam documented in this encounter Results * COVID-19 Coronavirus RNA Nasopharyngeal (08/12/2020 1:08 PM CANNON CREWMEMBER) COVID-19 RNA Not Detected PEEWEE PARIS (YUNIER) Comment: Testing performed as a component of [...] with COVID-19. Interpretive Data Testing performed at [facility] Molecular Infectious Disease Laboratory. The 2019-Novel Coronavirus Assay (COVID-19) Real Time RT-PCR assay [...] revised on 2019. First COVID-19 test? No [facility] (YUNIER) Comment:Testing performed by : [facility], [address] [place] [address], [place] [address] Employeed in healthcare? No [facility] (YUNIER) Comment:Testing performed by : [facility], [address] [place] [address]., [address] status? No CE REBEKAH [facility] (YUNIER) Comment:Testing performed by : [facility], [address] [place] [address]., [address] Group care resident? No [facility] (YUNIER) Comment:Testing performed by : [facility], [address] [place]., [address] Hospitalized? No JANNY PARIS (YUNIER) Comment:Testing performed by : [facility], [address] [place]., [address] Is patient in ICU? No JANNY PARIS (YUNIER) Comment:Testing performed by : [facility], [address] [place]., [address] Symptomatic as defined by CDC? No JANNY PARIS (YUNIER) Comment:Testing performed by : [facility], [address] [place]., [address] Nasopharyngeal 08/12/2020 1: 08 PM CANNON CREWMEMBER 08/12/2020 9:34 PM CANNON CREWMEMBER Narrative JANNY PARIS (YUNIER) - 08/13/2020 5:19 AM CANNON CREWMEMBER What is the reason for testing?->Screening prior to scheduled procedure or surgery Mookie Frank MD LAB MICROBIOLOGY - GENERA L ORDERABLES Final Result JANNY PARIS (YUNIER) 1 [facility] Department [place] [address] documented in this encounter Visit Diagnoses Diagnosis Pre-procedure lab exam Pre-procedural laboratory examination documented in this encounter Care Teams Grain Oilseed Or Pasture Farm Worker Relationship Specialty Start Date End Date Brian Velarde DO [address] [place] [address] PCP - General Family Practice 07/25/20 documented as of this encounter
--- OUTSIDE RECORDS SUMMARY | 2024-09-18 05:17 | XMS_ITS | Encounter Summary ---
Author Organization [facility] Address [address] [place] [address] Phone Care Team Providers Care Student Success Advisor Name Role Phone Brian Velarde DO Primary Care Provider + Reason for Visit * Reason Onset Date Comments Med Refill 08/02/2020 Encounter Details Date Type Department Care Team (Late st Contact Info) Description 08/02/2020 Telephone [facility]opaedic Surgery [address] [facility] [address] [place] [address] Mookie Frank MD [address] 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 I attempted to contact the patient to let her know that she would need to reach out to Dr. Waddell group for pain meds prior to her surgery with Dr. Frank. None of the numbers listed for the patient are in service. NCIAL PLANNER documented in this encounter Plan of Treatment Upcoming Encounters Date Type Department Care Team (Late st Contact Info) Description 11/19/2024 Hospital Encounter [facility] [address] [place] [address] Gal Bass MD [address] [facility] [phone] [place] [address] documented as of this encounter Visit Diagnoses Not on filedocumented in this encounter Care Teams Student Success Advisor Relationship Specialty Start Date End Date Brian Velarde DO [address] [place] [address] PCP - General Family Practice 07/25/20 documented as of this encounter
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
--- OUTSIDE RECORDS SUMMARY | 2024-09-18 05:17 | XMS_ITS | Encounter Summary ---
Author Organization [facility] Address [address] [place] [address] Phone Care Team Providers Care Inspector Insulation Name Role Phone Miscellaneous, Not In File Primary Care Provider Unavailable Encounter Details Date Type Department Care Team (Late st Contact Info) Description 07/16/2020 Telephone [facility] Orthopaedic Surgery [address] [facility] Advanced Medicine 6th [place] [address] [place] [phone] Nedra Cuevas RMA Social History Tobacco Use [...] on file Legal Sex Female 11:21 AM SWITCH ADJUSTER Gender Identity Not on file Sexual Orientation Not on file documented as of this encounter Miscellaneous Notes * Telephone Encounter - Nedra Cuevas RMA - 07/16/2020 11:51 AM CDT Andreia paperwork completed and faxed with OP note. Sent to [phone] documented in this encounter Plan of Treatment Upcoming Encounters Date Type Department Care Team (Late st Contact Info) Description 11/19/2024 Hospital Encounter [facility] [address] [place] [address] Gal Bass MD [address] [facility] [phone] [place] [address] documented as of this encounter Visit Diagnoses Not on filedocumented in this encounter Care Teams Inspector Insulation Relationship Specialty Start Date End Date Miscellaneous, Not In File PCP - General 06/26/20 documented as of this encounter
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
--- OUTSIDE RECORDS SUMMARY | 2024-09-18 05:17 | XMS_ITS | Encounter Summary ---
Author Organization [facility] Address [address] [facility] [address] [place] [address] Phone Care Team Providers Care Professor Of Historical Theology Name Role Phone Brian Velarde DO Primary Care Provider + Encounter Details Date Type Department Care Team (Late st Contact Info) Description 08/12/2020 Orders Only [facility] [phone] Scanning, Provider Social History Tobacco Use Types [...] on file Legal Sex Female 11:21 AM FACILITIES SUPERVISOR Gender Identity Not on file Sexual Orientation Not on file 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 Not on file Not on file Not on file documented as of this encounter Plan of Treatment Upcoming Encounters Date Type Department Care Team (Late st Contact Info) Description 11/19/2024 Hospital Encounter [facility] [address] [place] [address] Gal Bass MD [address] [facility] [place] [phone] [place] [address] documented as of this encounter Procedures Procedure Name Priority Date/Time Associated Diagnosis Comments SCAN - RADIOLOGY/IMAGING 08/12/2020 documented in this encounter Results * SCAN - RADIOLOGY/IMAGING (08/12/2020) Anatomical Region Laterality Modality Other us Provider Scanning Final Result documented in this encounter Visit Diagnoses Not on filedocumented in this encounter Care Teams Professor Of Historical Theology Relationship Specialty Start Date End Date Brian Velarde DO [address] [place] [address] PCP - General Family Practice 07/25/20 documented as of this encounter
--- OUTSIDE RECORDS SUMMARY | 2024-09-18 05:17 | XMS_ITS | Encounter Summary ---
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 Gender Identity Not on file Sexual Orientation Not on file 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 Not on file Not on file Not on file documented as of this encounter Plan of Treatment Upcoming Encounters Date Type Department Care Team (Late st Contact Info) Description 11/19/2024 Hospital Encounter [facility] 1 [place] [address] Gal Bass MD [address] [facility] [place] [phone] [place] [id number] documented as of this encounter Procedures Procedure Name Priority Date/Time Associated Diagnosis Comments SCAN - RADIOLOGY/IMAGING 03/03/2021 documented in this encounter Results * SCAN - RADIOLOGY/IMAGING (03/03/2021) Anatomical Region Laterality Modality Other us Provider Scanning Final Result documented in this encounter Visit Diagnoses Not on filedocumented in this encounter Care Teams Proposal Development Manager Relationship Specialty Start Date End Date Brian Velarde DO [address] [place] [address] PCP - General Family Practice 07/25/20 documented as of this encounter
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
--- OUTSIDE RECORDS SUMMARY | 2024-09-18 05:17 | XMS_ITS | Encounter Summary ---
Author Organization [facility] Address [address] [place] [address] Phone Care Team Providers Care Extrusion Manager Name Role Phone Brian Velarde Primary Care Provider + Reason for Visit * Neurology (Routine) - Closed Specialty Diagnoses / Procedures Referred By Christina diana Referred To Contact Diagnoses Injury of ulnar nerve at forearm level, left arm, sequela Injury of median nerve at left forearm level, subsequent encounter Procedures EMG/NCV WITH ULTRASOUND -Please select the performing region: [facility] (All Locations); Procedure performed at: [facility] Ortho Physiatry Dy, Mookie Ascencio MD Phone: tel: fax: [facility] (All Locations) Referral ID Status Reason Start Date Expiration Date Visits Re quested Visits Authorized [id number] Closed 12/16/2020 01/15/2022 1 1 Encounter Details Date Type Department Care Team (Late st Contact Info) Description 03/03/2021 10:15 AM CDT Diagnostic [facility] Orthopaedic Surgery [address] [place] [address] Chidi Crowell MD [address] 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 Please see EMG and Nerve Conduction report for details. (Located under Procedure and/or Media tab). Chidi Crowell M.D. Polygraph Operator Division of Physical Medicine and Rehabilitation Department of Orthopaedic Surgery [facility] Chidi Crowell M.D. dictating using M Modal. Export Coordinator variances may occur. documented in this encounter Plan of Treatment Upcoming Encounters Date Type Department Care Team (Late st Contact Info) Description 11/19/2024 Hospital Encounter [address] [phone] Gal Bass MD [address] [facility] [place] [phone] [place] [address] documented as of this encounter Procedures Procedure Name Priority Date/Time Associated Diagnosis Comments EMG/NCV Routine 03/06/2021 8:52 AM CDT Injury of ulnar nerve at forearm level, left arm, sequela Injury of median nerve at left forearm level, subsequent encounter documented in this encounter Results * EMG/NCV WITH ULTRASOUND -Please select the performing region: [facility] (All Locations); Procedure performed at: [facility] Physiatry (03/06/2021 8:52 AM CDT) Anatomical Region Laterality Modality Other us Mookie Frank MD NEUROLOGY ORDERABLES Sandy l Result documented in this encounter Visit Diagnoses Diagnosis Injury of ulnar nerve at forearm level, left arm, sequela Injury of median nerve at left forearm level, subsequent encounter documented in this encounter Care Teams Extrusion Manager Relationship Specialty Start Date End Date Brian Velarde DO [address] [place] [address] PCP - General Family Practice 07/25/20 documented as of this encounter
--- OUTSIDE RECORDS SUMMARY | 2024-09-18 05:17 | XMS_ITS | Encounter Summary ---
Author Organization [facility] Address [address] [place] [address] Phone Care Team Providers Care Steel Layout Worker Name Role Phone Brian Velarde Primary Care Provider + Reason for Referral * Neurology (Routine) - Closed Specialty Diagnoses / Procedures Referred By Christina diana Referred To Contact Diagnoses Injury of ulnar nerve at forearm level, left arm, sequela Injury of median nerve at left forearm level, subsequent encounter Procedures EMG/NCV -Please select the performing region: [facility] (All Locations); Procedure performed at: [facility] Ortho Physiatry Mookie Frank MD Phone: tel: fax: [facility] (All Locations) Referral ID Status Reason Start Date Expiration Date Visits Re quested Visits Authorized [id number] Closed 08/01/2020 08/31/2021 1 1 Encounter Details Date Type Department Care Team (Late st Contact Info) Description 08/01/[address] 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 [phone] [place] [address] documented as of this encounter Results * EMG/NCV -Please select the performing region: [facility] (All Locations); Procedure performed at: [facility] Physiatry (08/12/2020) Anatomical Region Laterality Modality Other Mookie Frank MD NEUROLOGY ORDERABLES Sandy l Result documented in this encounter Visit Diagnoses Diagnosis Injury of ulnar nerve at forearm level, left arm, sequela- Primary Injury of median nerve at left forearm level, subsequent encounter documented in this encounter Care Teams Steel Layout Worker Relationship Specialty Start Date End Date Brian Velarde DO [address] [place] [address] PCP - General Family Practice 07/25/20 documented as of this encounter
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
--- OUTSIDE RECORDS SUMMARY | 2024-09-18 05:17 | XMS_ITS | Encounter Summary ---
Author Organization [facility] Address [address] [place] [address] Phone Care Team Providers Care Mammal Keeper Name Role Phone Brian Velarde Primary Care Provider + Reason for Referral * Consultation (Routine) - Closed Specialty Diagnoses / Procedures Referred By Christina diana Referred To Contact Occupational Therapy Diagnoses Injury of ulnar nerve at forearm level, left arm, sequela Dy, Mookie Ascencio MD Phone: tel: fax: Vivienne Alvarenga [address] [place] [address] [place] [address] Phone: tel: fax: Referral ID Status Reason Start Date Expiration Date V isits Requested Visits Authorized [id number] Closed Specialty Services Required 08/30/2020 09/29/2021 20 20 Question Answer PTRFR OT Evaluate and Treat Reason for Visit L ulnar nerve grafting in forearm, UNT, SETS performed on 08/14/2020. Therapy options discussed with patient? Yes Location provided for therapy services is: Patient requested/Patient preferred Please select the performing region: External Order [171] To loc/pos Vivienne Alvarenga [[id number]] Comments Hand Therapy Evaluate and Treat Frequency/Duration: 2-3x/wk x 4-6 weeks ROM: elbow/fingers no limits - emphasize passive finger ROM and edema control; forearm no limits except avoid combined end range pronation and wrist extension; wrist motion no limits except no extension beyond 50 Strengthening: as tolerated Restrictions: as above Orthosis: cock-up wrist brace vs custom volar resting (whichever is more comfortable) Scar massage EMIC PROGRAM SPECIALIST Reason for Visit * Reason Comments Post-op Encounter Details Date Type Department Care Team (Late st Contact Info) Description 08/30/2020 8:30 AM ACADEMIC PROGRAM SPECIALIST Office Visit [facility] Orthopaedic Surgery [address] [place] [address] Mookie Frank MD [address] [facility] [address] [place] [address] Injury of ulnar nerve at forearm level, [...] on file Legal Sex Female 11:21 AM ACADEMIC PROGRAM SPECIALIST Gender Identity Not on file Sexual Orientation Not on file 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 Left ulnar nerve exploration and [...] forearm 9. Use of floor mounted microscope POSTOPERATIVE VISIT INTERIM HISTORY The patient is now status post the above procedure performed on 08/14/2020. She has been doing well overall without any fevers or chills. She is still quite painful and has quite a bit of pain to the touch. She is very sensitive. No other issues. PHYSICAL EXAMINATION Wounds are healing well, sutures removed. No signs of infection. No warmth or drainage. No drainage. Range of motion of the elbow is excellent. She continues to have numbness subjectivelyin the ulnar nerve distribution. There is some ulnar nerve clawing. The fingers are somewhat stiff today. REVIEW OF X-RAYS/STUDIES None today IMPRESSION/DIAGNOSIS/PLAN 24-year-old woman who returns for her postoperative visit status post the above procedure on 08/14/2020. She is quite painful today and sensitive to touch. She otherwise is doing quite well. We encouraged her to work on scar massage as well as desensitization of the entire extremity. She may begin to work on gentle range of motion of the fingers. We will plan to see her back in 4-6 weeks for a repeat examination. TEACHING ATTESTATION: Please note that I personally saw and examined the patient today and activelyparticipated in the history, physical examination, review of studies, and medical decision making. I agree with the documentation initially composed by Annabella Darling MD and any documentation editshave been included above. Mookie Frank M.D. Manager Telemetry Hand and Upper Extremity [facility] Orthopedics Dr. Frank is dictating using speech recognition software. Director Perioperative variances may occur. EMIC PROGRAM SPECIALIST documented in this encounter Plan of Treatment Upcoming Encounters Date Type Department Care Team (Late st Contact Info) Description 11/19/2024 Hospital Encounter [facility] [address] [place] [address] Gal Bass MD [phone] [place] [address] Scheduled Referrals Name Type Priority Associated Diagnoses Order Schedule Ambulatory referral order to Occupational Therapy - Outpatient Referral Routine Injury of ulnar nerve at forearm level, left arm, sequela Ordered: 08/30/2020 documented as of this encounter Visit Diagnoses Diagnosis Injury of ulnar nerve at forearm level, left arm, sequela- Primary documented in this encounter Care Teams Mammal Keeper Relationship Specialty Start Date End Date Brian Velarde DO [address] [place] [address] PCP - General Family Practice 07/25/20 documented as of this encounter
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
--- OUTSIDE RECORDS SUMMARY | 2024-09-18 05:18 | XMS_ITS | Encounter Summary ---
Author Organization [facility] Address [address] [facility] [facility] [address] [place] [id number] Care Team Providers Care Front Of House Manager Name Role Phone No, Physician Unavailable Miscellaneous, Not In File Primary Care Provider Unavailable Encounter Details Date Type Department Care Team (Late st Contact Info) Description 04/22/2020 Orders Only [facility] [address] [facility] [address] [place] [place] [address] [place] [phone] Ursula Sands, ROXI [address] [place] [address] Bacterial vaginosis (Primary Dx) Social History Tobacco Use Types Packs/Day Years Used Date Smoking Tobacco: Every Day Cigarettes Smokeless Tobacco: Never Alcohol Use Standard Drinks/Week Comments Yes 3 (1 standard drink = 0.6 oz pur e alcohol) PHQ-2 Answer Date Recorded PHQ-2 Score 2 05/12/2019 Comments No Sex and Gender Information Value Date Recorded Sex Assigned at Not on file 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 14 tablet 04/22/2020 0 documented in this encounter Plan of Treatment Upcoming Encounters Date Type Department Care Team (Late st Contact Info) Description 11/19/2024 Hospital Encounter [facility] 1 [place] [address] Gal Bass MD [address] [facility] [phone] [place] [address] documented as of this encounter Visit Diagnoses Diagnosis Bacterial vaginosis- Primary Unspecified vaginitis and vulvovaginitis documented in this encounter Care Teams Front Of House Manager Relationship Specialty Start Date End Date Miscellaneous, Not In File PCP - General 09/04/19 No, Physician 11/28/18 06/25/20 documented as of this encounter
--- OUTSIDE RECORDS SUMMARY | 2024-09-18 05:18 | XMS_ITS | Encounter Summary ---
Author Organization [facility] Healthcare Address [address] [place] [address] Care Team Providers Care Superintendent Transportation Name Role Phone No, Physician Unavailable Miscellaneous, Not In File Primary Care Provider Unavailable Encounter Details Date Type Department Care Team (Late st Contact Info) Description 04/20/2020 6:45 PM CDT Lab [address] [address] Social History Tobacco Use Types Packs/Day Years Used Date Smoking Tobacco: Every Day Cigarettes Smokeless Tobacco: Never Alcohol Use Standard Drinks/Week Comments Yes 3 (1 standard drink = 0.6 oz pur e alcohol) PHQ-2 Answer Date Recorded PHQ-2 Score 2 05/12/2019 Comments No Sex and Gender Information Value Date Recorded Sex Assigned at Not on file 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 documented in this encounter Plan of Treatment Upcoming Encounters Date Type Department Care Team (Late st Contact Info) Description 11/19/2024 Hospital Encounter [facility] 1 [place] [address] Gal Bass MD [address] [facility] [phone] [place] [address] documented as of this encounter Procedures Procedure Name Priority Date/Time Associated Diagnosis Comments TRICHOMONAS VAGINALIS RNA (FEMALE) Routine 04/20/2020 5:59 PM CDT documented in this encounter Results * Trichomonas vaginalis RNA (female) Urine (04/20/2020 5:59 PM CDT) Trichomonas vaginalis Negative Negative [facility] Comment: Test Performed by: [place] [address] Chemical Worker: Andres Barboza M.D. Ph.D.; CLIA# [id number] Urine 04/20/2020 5:59 PM CDT 04/22/2020 7:12 AM CDT Asmita Briones NP LAB MICROBIOLOGY - NERAL ORDERABLES Final Result [facility] [address] Department [place] [address] documented in this encounter Visit Diagnoses Not on filedocumented in this encounter Care Teams Superintendent Transportation Relationship Specialty Start Date End Date Miscellaneous, Not In File PCP - General 09/04/19 No, Physician 11/28/18 06/25/20 documented as of this encounter
--- OUTSIDE RECORDS SUMMARY | 2024-09-18 05:18 | XMS_ITS | Encounter Summary ---
Author Organization [facility] Care Team Providers Care Samples And Repairs Preparer Name Role Phone No, Physician Unavailable Miscellaneous, Not In File Primary Care Provider Unavailable Encounter Details Date Type Department Care Team (Latest Contact Info) Description 09/04/2019 Travel Social History Tobacco Use Types Packs/Day Years Used Date Smoking Tobacco: Every Day Cigarettes Smokeless Tobacco: Never Alcohol Use Standard Drinks/Week Comments Yes 3 (1 standard drink = 0.6 oz pur e alcohol) PHQ-2 Answer Date Recorded PHQ-2 Score 2 05/12/2019 Comments Unknown Sex and Gender Information Value Date Recorded Sex Assigned at Not on file 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 Gender Identity Not on file Sexual Orientation Not on file documented as of this encounter Plan of Treatment Upcoming Encounters Date Type Department Care Team (Late st Contact Info) Description 11/19/2024 Hospital Encounter [address] [address] Gal Bass MD [address] [facility] [phone] [place] [address] documented as of this encounter Visit Diagnoses Not on filedocumented in this encounter Care Teams Samples And Repairs Preparer Relationship Specialty Start Date End Date Miscellaneous, Not In File PCP - General 09/04/19 No, Physician 11/28/18 06/25/20 documented as of this encounter
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
--- OUTSIDE RECORDS SUMMARY | 2024-09-18 05:18 | XMS_ITS | Encounter Summary ---
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 Gender Identity Not on file Sexual Orientation Not on file documented as of this encounter Miscellaneous Notes * Telephone Encounter - Nedra Cuevas RMA - 07/11/2020 3:57 PM CDT Error documented in this encounter Plan of Treatment Upcoming Encounters Date Type Department Care Team (Late st Contact Info) Description 11/19/2024 Hospital Encounter [facility] 1 [place] [id number] Gal Bass MD [address] [facility] [phone] [place] [address] documented as of this encounter Visit Diagnoses Not on filedocumented in this encounter Care Teams Vice President Of Human Resources Relationship Specialty Start Date End Date Miscellaneous, Not In File PCP - General 06/26/20 documented as of this encounter
--- OUTSIDE RECORDS SUMMARY | 2024-09-18 05:18 | XMS_ITS | Encounter Summary ---
Author Organization [facility] Healthcare Address [address] [place] [address] Care Team Providers Care Pathology Collector Name Role Phone No, Physician Unavailable Miscellaneous, Not In File Primary Care Provider Unavailable Encounter Details Date Type Department Care Team (Late st Contact Info) Description 04/20/2020 6:30 PM CDT Lab [address] [address] Social History Tobacco Use Types Packs/Day Years Used Date Smoking Tobacco: Every Day Cigarettes Smokeless Tobacco: Never Alcohol Use Standard Drinks/Week Comments Yes 3 (1 standard drink = 0.6 oz pur e alcohol) PHQ-2 Answer Date Recorded PHQ-2 Score 2 05/12/2019 Comments No Sex and Gender Information Value Date Recorded Sex Assigned at Not on file 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 Gender Identity Not on file Sexual Orientation Not on file documented as of this encounter Plan of Treatment Upcoming Encounters Date Type Department Care Team (Late Contact Info) Description 11/19/2024 Hospital Encounter [facility] [address] [place] [address] Gal Bass MD [address] [facility] [phone] [place] [address] documented as of this encounter Visit Diagnoses Not on filedocumented in this encounter Care Teams Pathology Collector Relationship Specialty Start Date End Date Miscellaneous, Not In File PCP - General 09/04/19 No, Physician 11/28/18 06/25/20 documented as of this encounter
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
--- OUTSIDE RECORDS SUMMARY | 2024-09-18 05:18 | XMS_ITS | Encounter Summary ---
Author Organization [facility] Address [address] [facility] [address] [place] [id number] Care Team Providers Care Interventional Tech Name Role Phone No, Physician Unavailable Miscellaneous, Not In File Primary Care Provider Unavailable Reason for Visit * Reason Comments STI Screening Pt c/o having a enco unter and wants to check if she got anything Onset last week Encounter Details Date Type Department Care Team (Late st Contact Info) Description 04/20/2020 12:15 PM CDT Office Visit [facility] [address] [place] [address] Asmita Briones, ROXI [address] [place] [address] Screening examination for STD (sexually transmitted disease) (Primary Dx); Foul smelling urine Social History Tobacco Use Types Packs/Day Years Used Date Smoking Tobacco: Every Day Cigarettes Smokeless Tobacco: Never Alcohol Use Standard Drinks/Week Comments Yes 3 (1 standard drink = 0.6 oz pur e alcohol) PHQ-2 Answer Date Recorded PHQ-2 Score 2 05/12/2019 Comments No Sex and Gender Information Value Date Recorded Sex Assigned at Not on file Legal Sex Female 11:21 AM [employer] Gender Identity Not on file Sexual Orientation Not on file documented as of this encounter Last Filed Vital Signs Vital Sign Reading Time Taken Comments Blood Pressure 126/84 04/20/2020 12:19 PM CDT Pulse 96 04/20/2020 12:19 PM CDT Temperature 37.1 ??C (98.7 ??F) 04/20/2020 12:19 PM C DT Respiratory Rate 18 04/20/2020 12:19 PM CDT Oxygen Saturation 99% 04/20/2020 12:19 PM CDT Inhaled Oxygen Concentration - - Weight 83.9 kg (185 lb) 04/20/2020 12:19 PM CDT Height 154.9 cm (5' 1 ) 04/20/2020 12:19 PM CDT Body Mass Index 34.96 04/20/2020 12:19 PM CDT documented in this encounter Patient Instructions * Patient Instructions* Asmita Briones NP - 04/20/2020 12:15 PM CDT Screened for certain sexually transmitted infections Complete any medications prescribed Instructed they will be called with the test results Instructed NOT to have sex for one week following treatment Instructed to have sexual partners checked and treated before engaging in sexual activity, so that the infection is not passed back and forth Discussed safe sex practices including properly using condoms or abstaining from sex Any further STI testing ie: HIV/AIDS, HEP B or C, Syph[facility] or with your PCP Complete antibiotic Wipe front to back Drink plenty of water If symptoms persist or worsen- call PCP or go to ER Will treat for UTI today documented in this encounter Ordered Prescriptions Prescription Sig Dispense Quantity Refills Last Filled Start Date End Date nitrofurantoin monohydrate (Macrobid) 100 mg capsuleIndications :Foul smelling urine Take 1 capsule (100 mg total) by mouth 2 (two) times a day for 5 days 10 capsule 04/20/2020 0 documented in this encounter Progress Notes * Asmita Briones NP - 04/20/2020 12:15 PM CDT Images from the original note were not included. Subjective/Objective Patient ID: Marnie Jones is a 24 y.o. female. Chief Complaint STI Screening (Pt c/o having a encounter and wants to check if she got anything Onset last week) Presents to clinic for foul smelling urine, itchiness for the past few days. She slept with someoneabout a week ago & would like to be sure she does not have an STD. Exposure to STD The patient's primary symptoms include dysuria and genital itching. The patient's pertinent negatives include no discharge. This is a new problem. The current episode started in the past 7 days. The problem has been unchanged. The vaginal discharge was normal. Pertinent negatives include no fever, genital odor, rectal pain, sore throat or urinary frequency. Associated symptoms comments: Urine odor. She has tried nothing for the symptoms. The treatment provided no relief. Risk factors: unprotected sex. Review of Systems Constitutional: Negative for chills and fever. HENT: Negative for sore throat. Respiratory: Negative for cough and shortness of breath. Gastrointestinal: Negative for nausea, rectal pain and vomiting. Genitourinary: Positive for dysuria and vaginal discharge. Negative for flank pain and frequency. Physical Exam Vitals signs reviewed. Constitutional: Appearance: She is well-developed. HENT: Head: Normocephalic. Neck: Musculoskeletal: Normal range of motion. Cardiovascular: Rate and Rhythm: Normal rate and regular rhythm. Pulmonary: Effort: Pulmonary effort is normal. Breath sounds: Normal breath sounds. Musculoskeletal: Normal range of motion. Skin: General: Skin is warm and dry. Neurological: Mental Status: She is alert and oriented to person, place, and time. GCS: GCS eye subscore is 4. GCS verbal subscore is 5. GCS motor subscore is 6. Psychiatric: Speech: Speech normal. Behavior: Behavior normal. Vitals: 04/20/20 1219 BP: 126/84 Pulse: 96 Resp: 18 Temp: 37.1 ??C (98.7 ??F) SpO2: 99% Weight: 83.9 kg (185 lb) Height: 154.9 cm (5' 1 ) Assessment/Plan Screened for certain sexually transmitted infections Complete any medications prescribed Instructed they will be called with the test results Instructed NOT to have sex for one week following treatment Instructed to have sexual partners checked and treated before engaging in sexual activity, so that the infection is not passed back and forth Discussed safe sex practices including properly using condoms or abstaining from sex Any further STI testing ie: HIV/AIDS, HEP B or C, Syphilis [facility] or with your PCP Complete antibiotic Wipe front to back Drink plenty of water If symptoms persist or worsen- call PCP or go to ER Will treat for UTI today Diagnoses and all orders for this visit: Screening examination for STD (sexually transmitted disease) (Primary) - N. gonorrhoeae/C. trachomatis Amplification Urine; Future - TRICHOMANS - Miscellaneous Test; Future Foul smelling urine - POCT urinalysis dipstick - Urine culture Urine, bladder; Future - nitrofurantoin monohydrate (Macrobid) 100 mg capsule; Take 1 capsule (100 mg total) by mouth 2 (two) times a day for 5 days - Bacterial vaginitis panel; Future Results for orders placed or performed in visit on 04/20/20 POCT urinalysis dipstick Result Value Ref Range Glucose, ur, POC Negative Negative mg/dL Bilirubin, ur, POC Small Negative, Small, Moderate, Large Ketones, ur, POC Trace (A) Negative Specific [place], POC 1.030 1.005 - 1.030 Blood, ur, POC Negative Negative pH, ur, POC 6.5 5.0 - 8.0 Protein, ur, POC 3+ (A) Negative Urobilinogen, urine, POC 0.2 0.2 - 1.0 mg/dL Nitrite, ur, POC Negative Negative Leukocytes, ur, POC Negative Negative Lot Number [id number] Disposition- Discussed medications dosages, usage & potential side effects. Risks and interactions reviewed with patient. Indications for testing reviewed. Patient has been instructed to follow up w PCP or go to ER for any signs or symptoms that are of concern or worsening. Patient verbalizes understanding. The patient was given the opportunity to ask all questions and to have all questions answered. Patient is in agreement with the plan of care Asmita Briones NP documented in this encounter Plan of Treatment Upcoming Encounters Date Type Department Care Team (Late st Contact Info) Description 11/19/2024 Hospital Encounter [address] [id number] Gal Bass MD [address] [facility] [phone] [place] [address] documented as of this encounter Procedures Procedure Name Priority Date/Time Associated Diagnosis Comments POCT URINALYSIS DIPSTICK Routine 04/20/2020 12:43 PM CDT Foul smelling urine documented in this encounter Results * (ABNORMAL) Bacterial vaginitis panel (04/20/2020 6:15 PM CDT) Yeimi albicans IgE Not Detected Not Detected JANNY CARRERA Comment:Testing performed by : [facility], [address] [place] [address]., [id number] Gardnerella DNA probe Detected(A) Not Detected JANNY CARRERA Comment:Testing performed by : [facility], [address] [place] [address]., [id number] Trichomonas Parasite Not Detected Not Detected JANNY CARRERA Comment:Testing performed by : [facility], [address] [place] [address]., [id number] Vaginal 04/20/2020 6:15 PM CDT 04/22/2020 12:51 PM CDT Asmita Briones NP LAB MICROBIOLOGY - GE NERAL ORDERABLES Final Result JANNY [address] [facility] [place] [address] * Urine culture Urine, bladder (04/20/2020 6:15 PM CDT) Report Final Report: Less than 100,000 colonies/mL (clinically insignificant growth based on current clinical standards) JANNY CARRERA Comment:Testing performed by : [facility], [address] [place]., [address] Organism (CLINICALLY INSIGNIFICANT GROWTH JANNY Urine, bladder 04/20/2020 6: 15 PM CDT 04/20/2020 10:41 PM CDT Narrative JANNY CARRERA - 04/22/2020 7:21 AM CDT Testing performed by [facility] Microbiology Laboratory ([phone]) Asmita Briones NP LAB MICROBIOLOGY - GE NERAL ORDERABLES Final Result Performing Organization Address [facility] [place] [address] [address] [facility] [place] [address] * N. gonorrhoeae/C. trachomatis Amplification Urine (04/20/2020 6:15 PM CDT) C. trachomatis Not detected Not detected [facility] N. gonorrhoeae Not detected Not detected JANNY Comment: Testing performed by the [facility]. This assay detects Chlamydia trachomatis and Neisseria gonorrhoeae by nucleic acid amplification testing (NAAT). This test is approved by the [facility] Food and Drug Administration and the performance characteristics have been verified by the laboratory. The performance characteristics of this test have not been evaluated in women or individuals less than 16 years of age. Urine (None) 04/20/2020 6:15 PM CDT 04/20/2020 6:15 PM CDT Asmita Briones NP LAB MICROBIOLOGY - GE NERAL ORDERABLES Final Result Performing Organization Address [facility] de Phone Number JANNY CARRERA [address] [place] [address] * (ABNORMAL) POCT urinalysis dipstick (04/20/2020 12:43 PM CDT) Glucose, ur, POC Negative Negative mg/dL Bilirubin, ur, POC Small Negative, Small, Moderate, Large Ketones, ur, POC Trace(A) Negative Specific [place], POC 1.030 1.005 - 1.030 Blood, ur, POC Negative Negative pH, ur, POC 6.5 5.0 - 8.0 Protein, ur, POC 3+(A) Negative Urobilinogen, urine, POC 0.2 0.2 - 1.0 mg/dL Nitrite, ur, POC Negative Negative Leukocytes, ur, POC Negative Negative Lot Number [id number] Urine 04/20/2020 12:4 3 PM CDT Asmita Briones NP POINT OF CARE TEST OR DERABLES Final Result documented in this encounter Visit Diagnoses Diagnosis Screening examination for STD (sexually transmitted disease)- Primary Foul smelling urine Foul smelling urine Screening examination for STD (sexually transmitted disease) documented in this encounter Historical Medications * This list may reflect changes made after this encounter. baclofen (LIORESAL) 10 mg tablet Take 10 mg by mouth 3 times daily as needed 08/11/2019 06/26/2020 clonazePAM (KlonoPIN) 2 mg tablet Take [...] TK 1 T PO D 04/14/2019 08/07/2020 ARIPiprazole (ABILIFY) 5 mg tabletIndications :Bipolar Disorder in Remission Take 5 mg by mouth nightly 08/11/2019 08/07/2020 added in this encounter Care Teams Interventional Tech Relationship Specialty Start Date End Date Miscellaneous, Not In File PCP - General 09/04/19 No, Physician 11/28/18 06/25/20 documented as of this encounter
--- OUTSIDE RECORDS SUMMARY | 2024-09-18 05:18 | XMS_ITS | Encounter Summary ---
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 Prophylaxis, Surgical 2224 (New Bag - Provider: Corey Diana RN) 0610 (New Bag - Provider: Corey Dinaa RN) cyclobenzaprine (FLEXERIL) tablet 10 mg 10 mg, oral, 3 times daily, First dose on Wed06/25/20 at 2345 2356 (Given - Provider: Corey Diana RN) 0851 (Given - Provider: Roxanne Amin, CL)1552 (Given - Provider: Roxanne Amin RN) fentaNYL (SUBLIMAZE) preservative free injection 50 mcg (COMPLETED) 50 mcg, intravenous, Once, On Wed06/24/20 at 2355, For 1 dose 2345 (Given - Provider: Dolores Smith RN) ketorolac (TORADOL) injection 30 mg (COMPLETED) 30 mg, intravenous, Once, On Wed06/26/20 at 1015, For 1 dose, For Adult IV push, administer over 15 seconds 1018 (Given - Provider: Roxanne Amin RN) morphine injection 4 mg (COMPLETED) 4 mg, intravenous, Administer over 4 Minutes, Once, On Wed06/25/20 at 0330, For 1 dose 0410 (Given - Provider: Janet Gill NP) morphine injection 4 mg (COMPLETED) 4 mg, intravenous, Administer over 4 Minutes, Once, On Wed06/25/20 at 0825, For 1 dose 0848 (Given - Provider: Marychuy Phillips, CL) ondansetron (ZOFRAN) injection 4 mg (COMPLETED) 4 mg, intravenous, Administer over 2 Minutes, Once, On Wed06/25/20 at 0825, For 1 dose, Indications: Nausea and Vomiting 0847 (Given - Provider: Marychuy Phillips, CL) senna-docusate (PERICOLACE) 8.6-50 mg per tablet 2 tablet 2 tablet, oral, 2 times daily, First dose on Wed06/25/20 at 2100, Hold for diarrhea., Indications: constipation 2054 (Given - Provider: Corey Diana RN) 0900 (Not Given - Provider: Roxanne Amin, CL - Reason: Patient/family refused) sodium chloride 0.9% flush 0.5-20 mL 0.5-20 mL, intra-catheter, Every 8 hours scheduled, First dose on Wed06/25/20 at 2200, Flush volume based on line type and size. 2225 (Given - Provider: Corey Diana RN) 0610 (Given - Provider: Corey Diana RN)1455 (Not Given - Provider: Roxanne Amin RN - Reason: Loss of IV access - Comment: discharge) Continuous Medication Order 06/24/2020 06/25/2020 06/26/2020 dextrose 5% and sodium chloride 0.9% infusion (premix) 75 mL/hr, intravenous, Continuous, Starting on Wed06/25/20 at 1915, Phase I & Post-op Floor 1848 (New Bag - Provider: Mary Anne Olmedo RN) Lactated Ringer's (LR) infusion (CANCELED) 30 mL/hr, intravenous, Continuous, Starting on Wed06/25/20 at 1015 1033 (New Bag - Provider: Bronson Navarro CRNA)1229 (New Bag - Provider: Cece Navarro CRNA)1308 (Anesthesia Volume Adjustment - Provider: Cece Navarro CRNA) sodium chloride 0.9% infusion 100 mL/hr, intravenous, Continuous, Starting on Wed06/25/20 at 2100 2225 (New Bag - Provider: Corey Diana RN)2357 (Canceled Entry - Provider: Corey Diana RN) PRN Medication Order 06/24/2020 06/25/2020 06/26/2020 HYDROcodone-acetaminophen (NORCO) 5-325 mg per tablet 1 tablet (CANCELED) 1 tablet, oral, Every 4 hours PRN, 1st line for pain, Starting on Wed06/25/20 at 1836, Phase I & Post-op Floor, May repeat in 1 hour if pain is uncontrolled or increasing. Max 2 doses within 1 dosing interval., Indications: Pain 1849 (Given - Provider: Mary Anne Olmedo RN)2224 (Given - Provider: Corey Diana RN)2315 (Given - Provider: Corey Diana RN) 0213 (Given - Provider: Corey Diana RN)0606 (Given - Provider: Corey Diana RN) HYDROcodone-acetaminophen (NORCO) 5-325 mg per tablet 2 tablet 2 tablet, oral, Every 4 hours PRN, 1st line for pain, Starting on Wed06/26/20 at 0941, Phase I & Post-op Floor, Indications: Pain 1017 (Given - Provider: Roxanne Amin, CL)1454 (Given - Provider: Roxanne Amin RN) HYDROmorphone (DILAUDID) injection 0.2 mg (CANCELED) 0.2 mg, intravenous, Administer over 2 Minutes, Every 4 hours PRN, 2nd line for pain, Starting on Wed06/25/20 at 2018, May administer 1 hour after second dose of 1st line analgesic agent for uncontrolled or increasing pain., Indications: Pain 2054 (Given - Provider: Corey Diana RN) HYDROmorphone (DILAUDID) injection 0.2 mg (CANCELED) 0.2 mg, intravenous, Administer over 2 Minutes, Every 10 min PRN, 1st line for pain, Starting on Wed06/25/20 at 1312, Phase I, Notify PACU Anesthesiologist or Resident if total PACU dose reaches 2 mg and pain score 5/10 or more., Indications: Pain 1355 (Given - Provider: Mary Anne Olmedo, CL)1544 (Given - Provider: Linda Sousa RN)1858 (Given - Provider: Mary Anne Olmedo RN) morphine injection 6 mg (COMPLETED) 6 mg, intravenous, Administer over 4 Minutes, Every 2 hours PRN, 1st line for pain, Starting on Wed06/24/20 at 2354, For 3 doses 0005 (Given - Provider: Janet Juliette Bridget, INVESTMENT BANKING ANALYST)0142 (Given - Provider: Janet Gill NP)0530 (Given - Provider: Dolores Smith RN) ondansetron (ZOFRAN) injection 4 mg(Linked Group 1) 4 mg, intravenous, Administer over 2 Minutes, Every 6 hours PRN, nausea, vomiting, if not tolerating PO, Starting on Wed06/25/20 at 2017, Indications: nausea and vomiting 2237 (Given - Provider: Corey Diana RN) ondansetron ODT (ZOFRAN-ODT) disintegrating tablet 4 mg(Linked Group 1) 4 mg, oral, Every 6 hours PRN, nausea, vomiting, Starting on Wed06/25/20 at 2017, Indications: nausea and vomiting 2237 (See Alternative - Provider: Corey Diana RN) oxyCODONE (ROXICODONE) tablet 5 mg (COMPLETED) 5 mg, oral, Once as needed, pain when tolerating po, Starting on Wed06/25/20 at 1335, For 1 dose, Phase I, Indications: Pain 1638 (Given - Provider: Mary Anne Olmedo RN) polyethylene glycol (MIRALAX) packet 17 g 17 g, oral, Daily PRN, constipation, Starting on Wed06/25/20 at 2017, Indications: constipation sodium chloride 0.9 % irrigation (CANCELED) As needed, Starting on Wed06/25/20 at 1129, Intra-Op 1129 (Given - Provider: Jorge Waddell MD) sodium chloride 0.9 % irrigation (CANCELED) As needed, Starting on Wed06/25/20 at 1129, Intra-Op 1129 (Given - Provider: Jorge Waddell MD - Comment: giving on the field) sodium chloride 0.9% flush 0.5-20 mL 0.5-20 mL, intra-catheter, As needed, line care, Starting on Wed06/25/20 at 2017, Flush volume based on line type and size. Flush before and after each use. 2055 (Given - Provider: Corey Diana RN) Linked Groups Order Group 1: ondansetron ODT (ZOFRAN-ODT) disintegrating tablet 4 mgJump to med 4 mg, oral, Every 6 hours PRN, nausea, vomiting, Starting on Wed06/25/20 at 2018, Indications: nausea and vomiting Or ondansetron (ZOFRAN) injection 4 mgJump to med 4 mg, intravenous, Administer over 2 Minutes, Every 6 hours PRN, nausea, vomiting, if not tolerating PO, Starting on Wed06/25/20 at 2018, Indications: nausea and vomiting documented in this encounter Orders Medications Ordered That Dmitry ht Not Have Been Administered Count Last Ordered Date First Ordered Date HYDROcodone-acetaminophen (N ORCO) 5-325 mg per tablet 2 tablet 1 06/26/2020 ketorolac (TORADOL) injection 30 mg 1 06/26 acetaminophen (TYLENOL) tablet 1,000 mg 1 1 ceFAZolin (ANCEF) 2,000 mg/2 0 mL in sterile water (premix) 2,000 mg 3 06/25/2020 06/24/20 20 cyclobenzaprine (FLEXERIL) tablet 10 mg 1 1 dextrose 5% and sodium chlor bao 0.9% infusion (premix) 1 06/25/2020 HYDROcodone-acetaminophen (N ORCO) 5-325 mg per tablet 1 tablet 1 06/25/2020 HYDROmorphone (DILAUDID) injection 0.2 mg 2 06/25/2020 Lactated Ringer's (LR) infusion 2 0 morphine injection 4 mg 2 06/25/2020 naloxone (NARCAN) 0.4 mg/mL injection 0.04-0.4 mg 1 06/25/2020 ondansetron (ZOFRAN) injection 4 mg 3 06/25 ondansetron ODT (ZOFRAN-ODT) disintegrating tablet 4 mg 1 06/25/2020 oxyCODONE (ROXICODONE) tablet 5 mg 1 2019 polyethylene glycol (MIRALAX) packet 17 g 1 06/25/2020 senna-docusate (PERICOLACE) 8.6-50 mg per tablet 2 tablet 1 06/25/2020 sodium chloride 0.9% flush 0.5-20 mL 2 02/2020 sodium chloride 0.9% infusion 1 06/25/2020 fentaNYL (SUBLIMAZE) preserv ative free injection 50 mcg 1 06/24/2020 morphine injection 6 mg 1 06/24/2020 Diet Count Last Ordered Date First Orde red Date ADULT DISCHARGE DIET 1 06/26/2020 Nursing Count Last Ordered Date First Orde red Date DISCHARGE ACTIVITY 1 06/26/2020 DISCHARGE CALL PROVIDER 8 06/26/2020 DISCHARGE DRESSING 2 06/26/2020 DISCHARGE INSTRUCTIONS 9 06/26/2020 WEIGHT BEARING STATUS 1 06/26/2020 Consult Count Last Ordered Date First Orde red Date CONSULT TO ORTHO-HAND 1 06/25/2020 IP CONSULT TO ORTHOPEDIC SURGERY 1 06/25/20 20 CORE MEASURES Count Last Ordered Date First Ord ered Date REASON FOR NO VTE PROPHYLAXI S - HOSPITAL ADMISSION - MEDICATIONS 1 06/25/2020 REASON FOR NO VTE PROPHYLAXIS AT ADMISSION 1 06/25/2020 Case Request Count Last Ordered Date First Orde red Date CASE REQUEST OPERATING ROOM 1 06/25/2020 ADT Patient Update Count Last Ordered Date Firs t Ordered Date ED IP DECISION TO ADMIT 1 06/25/2020 documented in this encounter Care Teams It Application Architect Relationship Specialty Start Date End Date Miscellaneous, Not In File PCP - General 06/25/20 No, Physician 11/28/18 06/25/20 documented as of this encounter
--- OUTSIDE RECORDS SUMMARY | 2024-09-18 05:18 | XMS_ITS | Encounter Summary ---
Author Organization [facility] Address [address] [place] [address] Phone Care Team Providers Care Heat Treat Operator Name Role Phone Miscellaneous, Not In File Primary Care Provider Unavailable Encounter Details Date Type Department Care Team (Late st Contact Info) Description 07/02/2020 Orders Only [facility] [address] [facility] 6[address] [place] [address] [place] [address] Jorge Waddell MD [address] [facility] 6A[address]6B[address]A [place] [address] Social History Tobacco Use Types Packs/Day Years Used Date Smoking Tobacco: Every Day Cigarettes Smokeless Tobacco: Never Alcohol Use Standard Drinks/Week Comments Yes 3 (1 standard drink = 0.6 oz pur e alcohol) PHQ-2 Answer Date Recorded PHQ-2 Score 2 05/12/2019 Comments No Sex and Gender Information Value Date Recorded Sex Assigned at Not on file 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 Gender Identity Not on file Sexual Orientation Not on file documented as of this encounter Progress Notes * Yovani Koroma CMA - 07/02/2020 3:37 PM CDT Completed Ameren form fax to [phone] documented in this encounter Plan of Treatment Upcoming Encounters Date Type Department Care Team (Late st Contact Info) Description 11/19/2024 Hospital Encounter [facility] 1 [place] [address] Gal Bass MD [address] [facility] [phone] [place] [address] documented as of this encounter Visit Diagnoses Not on filedocumented in this encounter Care Teams Heat Treat Operator Relationship Specialty Start Date End Date Miscellaneous, Not In File PCP - General 06/26/20 documented as of this encounter
--- OUTSIDE RECORDS SUMMARY | 2024-09-18 05:18 | XMS_ITS | Encounter Summary ---
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 Gender Identity Not on file Sexual [...] for muscle spasms 20 tablet 09/04/2019 06/26/2020 cyclobenzaprine (FLEXERIL) 10 mg [...] to 42 doses 42 tablet 06/25/2020 07/04/2020 ibuprofen (ADVIL,MOTRIN) 600 mg tablet Take 1 tablet (600 mg total) by mouth every 6 (six) hours as needed for pain 30 tablet 09/04/2019 06/26/2020 metoprolol tartrate (LOPRESSOR) 50 mg immediate release [...] Encounter [facility] 1 [place] [address] Gal Bass MD [address] [facility] [phone] [place] [address] documented as of this encounter Visit Diagnoses Not on filedocumented in this encounter Care Teams Kindergarten Teacher Assistant Relationship Specialty Start Date End Date Miscellaneous, Not In File PCP - General 09/04/19 No, Physician 11/28/18 06/25/20 documented as of this encounter
--- OUTSIDE RECORDS SUMMARY | 2024-09-18 05:18 | XMS_ITS | Encounter Summary ---
Author Organization [facility] Address [address] [place] [address] Phone Care Team Providers Care Towerman Name Role Phone Miscellaneous, Not In File Primary Care Provider Unavailable Brian Velarde DO Primary Care Provider + Encounter Details Date Type Department Care Team (Late st Contact Info) Description 07/04/2020 Orders Only [facility] Orthopaedic Surgery [address] [facility] 6th [place] [address] Jorge Waddell MD [address] [facility] 6A[address]6B[address] [place] [address] Social History Tobacco Use Types Packs/Day Years Used Date Smoking Tobacco: Every Day Cigarettes Smokeless Tobacco: Never Alcohol Use Standard Drinks/Week Comments Yes 3 (1 standard drink = 0.6 oz pur e alcohol) AUDIT-C Answer Date Recorded Q1: How often [...] on file 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 Gender Identity Not on file Sexual Orientation Not on file documented as of this encounter Plan of Treatment Upcoming Encounters Date Type Department Care Team (Late st Contact Info) Description 11/19/2024 Hospital Encounter [facility] 1 [place] [address] Gal Bass MD [address] [facility] [phone] [place] [address] documented as of this encounter Visit Diagnoses Not on filedocumented in this encounter Care Teams Towerman Relationship Specialty Start Date End Date Miscellaneous, Not In File PCP - General 06/26/20 Brian Velarde DO [address] [place] [address] PCP - General Family Practice 07/25/20 documented as of this encounter
--- OUTSIDE RECORDS SUMMARY | 2024-09-18 05:18 | XMS_ITS | Encounter Summary ---
Author Organization [facility] Healthcare Address [address] [place] [address] Care Team Providers Care House Steward/Stewardess Name Role Phone No, Physician Unavailable Miscellaneous, Not In File Primary Care Provider Unavailable Encounter Details Date Type Department Care Team (Late st Contact Info) Description 04/20/2020 6:00 PM CDT Lab [address] [address] Foul smelling urine; Screening examination for STD (sexually transmitted disease) Social History Tobacco Use Types Packs/Day Years Used Date Smoking Tobacco: Every Day Cigarettes Smokeless Tobacco: Never Alcohol Use Standard Drinks/Week Comments Yes 3 (1 standard drink = 0.6 oz pur e alcohol) PHQ-2 Answer Date Recorded PHQ-2 Score 2 05/12/2019 Comments No Sex and Gender Information Value Date Recorded Sex Assigned at Not on file 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 * Result Encounter Note - Ursula Sands NP - 04/22/2020 2:30 PM CDT Please call the patient regarding her abnormal result. yl has been submitted to pharmacy on file. She should not drink alcohol while taking medication and for 7 days after medication course has completed. * Result Encounter Note - Ursula Sands NP - 04/22/2020 8:37 AM CDT Please alert patient that urine culture was negative. If s/s persist, she should follow up with PCP. documented in this encounter Plan of Treatment Upcoming Encounters Date Type Department Care Team (Late st Contact Info) Description 11/19/2024 Hospital Encounter [facility] 1 [place] [address] Gal Bass MD [address] [facility] [phone] [place] [address] documented as of this encounter Procedures Procedure Name Priority Date/Time Associated Diagnosis Comments N. GONORRHOEAE/C. TRACHOMATIS AMPLIFICATION Routine 04/20/2020 6:15 PM CDT Screening examination for STD (sexually transmitted disease) VAGINITIS PANEL Routine 04/20/2020 6:15 PM CDT Foul smelling urine URINE CULTURE Routine 04/20/2020 6:15 PM CDT Foul smelling urine documented in this encounter Results * N. gonorrhoeae/C. trachomatis Amplification Urine (04/20/2020 6:15 PM CDT) C. trachomatis Not detected Not detected JANNY CH N. gonorrhoeae Not detected Not detected JANNY CARRERA Comment: Testing performed by the [facility]. This assay detects Chlamydia trachomatis and Neisseria gonorrhoeae by nucleic acid amplification testing (NAAT). This test is approved by the [place] Food and Drug Administration and the performance characteristics have been verified by the laboratory. The performance characteristics of this test have not been evaluated in women or individuals less than 16 years of age. Urine (None) 04/20/2020 6:15 PM CDT 04/20/2020 6:15 PM CDT Asmita Briones CMM OPERATOR LAB MICROBIOLOGY - GE NERAL ORDERABLES Final Result Performing Organization Address [facility] Co de Phone Number JANNY CARRERA [phone] Department [place] [address] * Urine culture Urine, bladder (04/20/2020 6:15 PM CDT) Report Final Report: Less than 100,000 colonies/mL (clinically insignificant growth based on current clinical standards) JANNY CARRERA Comment:Testing performed by : [facility], [address] [place] [address]., [id number] Organism (CLINICALLY INSIGNIFICANT GROWTH JANNY Urine, bladder 04/20/2020 6: 15 PM CDT 04/20/2020 10:41 PM CDT Narrative JANNY - 04/22/2020 7:21 AM CDT Testing performed by [facility] ([phone]) Asmita Briones CMM OPERATOR LAB MICROBIOLOGY - GE NERAL ORDERABLES Final Result Performing Organization Address [facility] Co de Phone Number THEODORAMUSA CARRERA [address] [place] [address] * (ABNORMAL) Bacterial vaginitis panel (04/20/2020 6:15 PM CDT) Yeimi albicans IgE Not Detected Not Detected JANNY Comment:Testing performed by : [facility], [address] [place] [address]., [id number] Gardnerella DNA probe Detected(A) Not Detected JANNY Comment:Testing performed by : [facility], [address] [place] [address]., [id number] Trichomonas Parasite Not Detected Not Detected JANNY Comment:Testing performed by : [facility], [address] [place] [address]., [id number] Vaginal 04/20/2020 6:15 PM CDT 04/22/2020 12:51 PM CDT Asmita Briones NP LAB MICROBIOLOGY - MUS[place] ORDERABLES Final Result JANNY CARRERA [address] Department [place] [address] documented in this encounter Visit Diagnoses Diagnosis Foul smelling urine Screening examination for STD (sexually transmitted disease) documented in this encounter Care Teams House Steward/Stewardess Relationship Specialty Start Date End Date Miscellaneous, Not In File PCP - General 09/04/19 No, Physician 11/28/18 06/25/20 documented as of this encounter
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
--- OUTSIDE RECORDS SUMMARY | 2024-09-18 05:18 | XMS_ITS | Encounter Summary ---
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 for you?? -Similarities: Patient stated that a watch and ruler are alike in that they: ???numbers?? Insight - fair in that she recognizes benefits of work and therapy Judgment - fair in that she plans on getting a counselor and following up with her PCP RISK ASSESSMENT: The patient: -Has the following suicide risk factors: access to firearms, recent loss and recent use of addictive medication (prescribed by a physician) -Lacks the following suicide risk factors: male sex, living alone, hopelessness, communication of suicidal intent, family history of suicide and psychosis -Has the following suicide protective factors: future planning (to take care of her child, to go towork, to follow up with PCP, to find a therapist), accessible and good relationship with outpatientP, employment and housing -Has the following violence risk factors: weapons (access to guns, training, history of use, preparation) -Lacks the following violence risk factors: homicidal ideation, male sex, recently laid off and noncompliant -Overall, the patient presents a moderate risk of harm. LABORATORY/DIAGNOSTIC DATA REVIEW: Laboratory review: Lab results in the last 24 hours: No results found for this or any previous visit (from the past 24 hour(s)). PRIMARY DIAGNOSIS/ REASON FOR INPATIENT ADMISSION: Benzodiazepine withdrawal with delirium (CMS/HCC) * Plan of Care - Anitha Banks RN - 12/02/2018 9:12 AM CDT Goals: Summary: * Plan of Care - Estevan Gates RN - 12/01/2018 10:46 PM CDT Goals: Summary: new admission * Plan of Care - Nunu Wiseman RN - 12/01/2018 6:07 PM CDT Goals: no goals stated; patient states this was all a misunderstanding Problem: Activity: Goal: Interest or engagement in leisure activities will improve Outcome: Not Progressing Goal: Sleeping patterns will improve Outcome: Not Progressing Problem: Cognitive: Goal: Mental status will improve Outcome: Not Progressing Problem: Lack of Knowledge: Goal: Verbalization of understanding the information provided will improve Outcome: Not Progressing Problem: Coping: Goal: Ability to verbalize frustrations and anger appropriately will improve Outcome: Not Progressing Goal: Ability to demonstrate self-control will improve Outcome: Not Progressing Problem: Health Behavior: Goal: Identification of resources available to assist in meeting health care needs will improve Outcome: Not Progressing Goal: Compliance with treatment plan for underlying cause of condition will improve Outcome: Not Progressing Problem: Physical Regulation: Goal: Ability to maintain clinical measurements within normal limits will improve Outcome: Not Progressing Problem: Safety: Goal: Ability to contract for his/her safety will improve Outcome: Not Progressing Goal: Periods of time without injury will increase Outcome: Not Progressing Problem: Self-Concept: Goal: Verbalizations of decreased anxiety will increase Outcome: Not Progressing Summary: care plan initiated at this time. documented in this encounter Plan of Treatment Upcoming Encounters Date Type Department Care Team (Late st Contact Info) Description 11/19/2024 Hospital Encounter [address] [phone] Gal Bass MD [address] [facility] [phone] [place] [address] documented as of this encounter Visit Diagnoses Not on filedocumented in this encounter Administered Medications Inactive Administered Medications - up to 3 most recent administrations Medication Order MAR Action Action Date Dose Rate Site acetaminophen (TYLENOL) tablet 650 mg 650 mg, oral, Every 4 hours PRN, 1st line for pain, Starting on Ruby 12/01/18 at 1829, Indications: PainIndications:Pain chlordiazePOXIDE (LIBRIUM) capsule 25 mg 25 mg, oral, Every 4 hours PRN, other, Score between 3 and 5 on Alcohol Withdrawl Assessment, Starting on Wed12/02/18 at 1015, For 6 days, HOLD for any status indicating over sedation including the following: drifts off to sleep during conversation, minimal or no response to verbal or physical stimulation, or respiratory rate less than 10 breaths per minute. Re-assess in 4 hours., Indications: Alcohol Withdrawal SyndromeIndications:Alcohol Withdrawal Syndrome chlordiazePOXIDE (LIBRIUM) capsule 25 mg 25 mg, oral, Every 2 hours PRN, other, Score between 6 and 12 on Alcohol Withdrawl Assessment, Starting on Wed12/02/18 at 1015, For 6 days, HOLD for any status indicating over sedation including the following: drifts off to sleep during conversation, minimal or no response to verbal or physical stimulation, or respiratory rate less than 10 breaths per minute. Re-assess in 2 hours., Indications: Alcohol Withdrawal SyndromeIndications:Alcohol Withdrawal Syndrome haloperidol (HALDOL) 2 mg/mL CONCENTRATED oral solution 5 mg 5 mg, oral, Every 6 hours PRN, agitation, Starting on Ruby 12/01/18 at 1829, Indications: AgitationIndications:Agitation haloperidol (HALDOL) injection 5 mg 5 mg, intramuscular, Administer over 5 Minutes, Every 6 hours PRN, other, clinically emergent severe agitation, Starting on Ruby 12/01/18 at 1836, Indications: AgitationIndications:Agitation hydrOXYzine (ATARAX) tablet 10 mg 10 mg, oral, Every 4 hours PRN, anxiety, Starting on Ruby 12/01/18 at 1834 LORazepam (ATIVAN) injection 1 mg 1 mg, intravenous, Every 1 hour PRN, other, Score between 13 and 18 on Alcohol Withdrawl Assessment, Starting on Wed12/02/18 at 1015, For 6 days, HOLD for any status indicating over sedation including the following: drifts off to sleep during conversation, minimal or no response to verbal or physical stimulation, or respiratory rate less than 10 breaths per minute. For IV administration, do not exceed a rate of 2 mg/minute, Indications: Alcohol Withdrawal SyndromeIndications:Alcohol Withdrawal Syndrome LORazepam (ATIVAN) injection 1 mg 1 mg, intramuscular, Every 1 hour PRN, other, Score between 13 and 18 on Alcohol Withdrawl Assessment, Starting on Wed12/02/18 at 1015, For 6 days, Administer IM if unable to provide IV Push. HOLD for any status indicating over sedation including the following: drifts off to sleep during conversation, minimal or no response to verbal or physical stimulation, or respiratory rate less than 10 breaths per minute. For IV administration, do not exceed a rate of 2 mg/minute, Indications: Alcohol Withdrawal SyndromeIndications:Alcohol Withdrawal Syndrome LORazepam (ATIVAN) injection 2 mg 2 mg, intramuscular, Every 6 hours PRN, other, clinically emergent severe agitation, Starting on Ruby 12/01/18 at 1836, For IV administration, do not exceed a rate of 2 mg/minute, Indications: AgitationIndications:Agitation LORazepam (ATIVAN) injection 2 mg 2 mg, intravenous, Every 1 hour PRN, other, Score greater than 18 on Alcohol Withdrawl Assessment, Starting on Wed12/02/18 at 1015, For 6 days, HOLD for any status indicating over sedation including the following: drifts off to sleep during conversation, minimal or no response to verbal or physical stimulation, or respiratory rate less than 10 breaths per minute. For IV administration, do not exceed a rate of 2 mg/minute, Indications: Alcohol Withdrawal SyndromeIndications:Alcohol Withdrawal Syndrome LORazepam (ATIVAN) injection 2 mg 2 mg, intramuscular, Every 1 hour PRN, other, Score greater than 18 on Alcohol Withdrawl Assessment, Starting on Wed12/02/18 at 1015, For 6 days, Administer IM if unable to provide IV Push. HOLD for any status indicating over sedation including the following: drifts off to sleep during conversation, minimal or no response to verbal or physical stimulation, or respiratory rate less than 10 breaths per minute. For IV administration, do not exceed a rate of 2 mg/minute, Indications: Alcohol Withdrawal SyndromeIndications:Alcohol Withdrawal Syndrome traZODone (DESYREL) tablet 100 mg 100 mg, oral, Nightly PRN, sleep, Starting on Ruby 12/01/18 at 1834 documented in this encounter Discontinued Medications Medication Sig Discontinue Reason Start Date End Da te clonazePAM (KlonoPIN) 2 mg tablet Take 2 mg by mouth 2 (two) times a day Stop Taking at Discharge 11/28/2018 12/02/2018 documented as of this encounter Historical Medications * This list may reflect changes made after this encounter. sertraline (ZOLOFT) 50 mg tabletIndications :anxiety Take 50 mg by mouth daily 0 11/28/2018 08/07/2020 clonazePAM (KlonoPIN) 2 mg tablet Take 2 mg by mouth 2 (two) times a day 0 11/28/2018 12/02/2018 added in this encounter Active and Recently Administered Medications Times are shown in CDT. PRN Medication Order 11/30/2018 12/01/2018 12/02/2018 acetaminophen (TYLENOL) tablet 650 mg 650 mg, oral, Every 4 hours PRN, 1st line for pain, Starting on Ruby 12/01/18 at 1829, Indications: Pain chlordiazePOXIDE (LIBRIUM) capsule 25 mg(Linked Group 1) 25 mg, oral, Every 4 hours PRN, other, Score between 3 and 5 on Alcohol Withdrawl Assessment, Starting on Wed12/02/18 at 1015, For 6 days, HOLD for any status indicating over sedation including the following: drifts off to sleep during conversation, minimal or no response to verbal or physical stimulation, or respiratory rate less than 10 breaths per minute. Re-assess in 4 hours., Indications: Alcohol Withdrawal Syndrome chlordiazePOXIDE (LIBRIUM) capsule 25 mg(Linked Group 1) 25 mg, oral, Every 2 hours PRN, other, Score between 6 and 12 on Alcohol Withdrawl Assessment, Starting on Wed12/02/18 at 1015, For 6 days, HOLD for any status indicating over sedation including the following: drifts off to sleep during conversation, minimal or no response to verbal or physical stimulation, or respiratory rate less than 10 breaths per minute. Re-assess in 2 hours., Indications: Alcohol Withdrawal Syndrome haloperidol (HALDOL) 2 mg/mL CONCENTRATED oral solution 5 mg 5 mg, oral, Every 6 hours PRN, agitation, Starting on Ruby 12/01/18 at 1829, Indications: Agitation haloperidol (HALDOL) injection 5 mg(Linked Group 2) 5 mg, intramuscular, Administer over 5 Minutes, Every 6 hours PRN, other, clinically emergent severe agitation, Starting on Ruby 12/01/18 at 1836, Indications: Agitation hydrOXYzine (ATARAX) tablet 10 mg 10 mg, oral, Every 4 hours PRN, anxiety, Starting on Ruby 12/01/18 at 1834 LORazepam (ATIVAN) injection 1 mg(Linked Group 1) 1 mg, intravenous, Every 1 hour PRN, other, Score between 13 and 18 on Alcohol Withdrawl Assessment, Starting on Wed12/02/18 at 1015, For 6 days, HOLD for any status indicating over sedation including the following: drifts off to sleep during conversation, minimal or no response to verbal or physical stimulation, or respiratory rate less than 10 breaths per minute. For IV administration, do not exceed a rate of 2 mg/minute, Indications: Alcohol Withdrawal Syndrome LORazepam (ATIVAN) injection 1 mg(Linked Group 1) 1 mg, intramuscular, Every 1 hour PRN, other, Score between 13 and 18 on Alcohol Withdrawl Assessment, Starting on Wed12/02/18 at 1015, For 6 days, Administer IM if unable to provide IV Push. HOLD for any status indicating over sedation including the following: drifts off to sleep during conversation, minimal or no response to verbal or physical stimulation, or respiratory rate less than 10 breaths per minute. For IV administration, do not exceed a rate of 2 mg/minute, Indications: Alcohol Withdrawal Syndrome LORazepam (ATIVAN) injection 2 mg(Linked Group 2) 2 mg, intramuscular, Every 6 hours PRN, other, clinically emergent severe agitation, Starting on Ruby 12/01/18 at 1836, For IV administration, do not exceed a rate of 2 mg/minute, Indications: Agitation LORazepam (ATIVAN) injection 2 mg(Linked Group 1) 2 mg, intravenous, Every 1 hour PRN, other, Score greater than 18 on Alcohol Withdrawl Assessment, Starting on Wed12/02/18 at 1015, For 6 days, HOLD for any status indicating over sedation including the following: drifts off to sleep during conversation, minimal or no response to verbal or physical stimulation, or respiratory rate less than 10 breaths per minute. For IV administration, do not exceed a rate of 2 mg/minute, Indications: Alcohol Withdrawal Syndrome LORazepam (ATIVAN) injection 2 mg(Linked Group 1) 2 mg, intramuscular, Every 1 hour PRN, other, Score greater than 18 on Alcohol Withdrawl Assessment, Starting on Wed12/02/18 at 1015, For 6 days, Administer IM if unable to provide IV Push. HOLD for any status indicating over sedation including the following: drifts off to sleep during conversation, minimal or no response to verbal or physical stimulation, or respiratory rate less than 10 breaths per minute. For IV administration, do not exceed a rate of 2 mg/minute, Indications: Alcohol Withdrawal Syndrome traZODone (DESYREL) tablet 100 mg 100 mg, oral, Nightly PRN, sleep, Starting on Wed12/01/18 at 1834 Linked Groups Order Group 1: chlordiazePOXIDE (LIBRIUM) capsule 25 mgJump to med 25 mg, oral, Every 4 hours PRN, other, Score between 3 and 5 on Alcohol Withdrawl Assessment, Starting on Wed12/02/18 at 1015, For 6 days, HOLD for any status indicating over sedation including the following: drifts off to sleep during conversation, minimal or no response to verbal or physical stimulation, or respiratory rate less than 10 breaths per minute. Re-assess in 4 hours., Indications: Alcohol Withdrawal Syndrome Or chlordiazePOXIDE (LIBRIUM) capsule 25 mgJump to med 25 mg, oral, Every 2 hours PRN, other, Score between 6 and 12 on Alcohol Withdrawl Assessment, Starting on Wed12/02/18 at 1015, For 6 days, HOLD for any status indicating over sedation including the following: drifts off to sleep during conversation, minimal or no response to verbal or physical stimulation, or respiratory rate less than 10 breaths per minute. Re-assess in 2 hours., Indications: Alcohol Withdrawal Syndrome Or LORazepam (ATIVAN) injection 1 mgJump to med 1 mg, intravenous, Every 1 hour PRN, other, Score between 13 and 18 on Alcohol Withdrawl Assessment, Starting on Wed12/02/18 at 1015, For 6 days, HOLD for any status indicating over sedation including the following: drifts off to sleep during conversation, minimal or no response to verbal or physical stimulation, or respiratory rate less than 10 breaths per minute. For IV administration, do not exceed a rate of 2 mg/minute, Indications: Alcohol Withdrawal Syndrome Or LORazepam (ATIVAN) injection 1 mgJump to med 1 mg, intramuscular, Every 1 hour PRN, other, Score between 13 and 18 on Alcohol Withdrawl Assessment, Starting on Wed12/02/18 at 1015, For 6 days, Administer IM if unable to provide IV Push. HOLD for any status indicating over sedation including the following: drifts off to sleep during conversation, minimal or no response to verbal or physical stimulation, or respiratory rate less than 10 breaths per minute. For IV administration, do not exceed a rate of 2 mg/minute, Indications: Alcohol Withdrawal Syndrome Or LORazepam (ATIVAN) injection 2 mgJump to med 2 mg, intravenous, Every 1 hour PRN, other, Score greater than 18 on Alcohol Withdrawl Assessment, Starting on Wed12/02/18 at 1015, For 6 days, HOLD for any status indicating over sedation including the following: drifts off to sleep during conversation, minimal or no response to verbal or physical stimulation, or respiratory rate less than 10 breaths per minute. For IV administration, do not exceed a rate of 2 mg/minute, Indications: Alcohol Withdrawal Syndrome Or LORazepam (ATIVAN) injection 2 mgJump to med 2 mg, intramuscular, Every 1 hour PRN, other, Score greater than 18 on Alcohol Withdrawl Assessment, Starting on Wed12/02/18 at 1015, For 6 days, Administer IM if unable to provide IV Push. HOLD for any status indicating over sedation including the following: drifts off to sleep during conversation, minimal or no response to verbal or physical stimulation, or respiratory rate less than 10 breaths per minute. For IV administration, do not exceed a rate of 2 mg/minute, Indications: Alcohol Withdrawal Syndrome Group 2: haloperidol (HALDOL) injection 5 mgJump to med 5 mg, intramuscular, Administer over 5 Minutes, Every 6 hours PRN, other, clinically emergent severe agitation, Starting on Ruby 12/01/18 at 1836, Indications: Agitation And LORazepam (ATIVAN) injection 2 mgJump to med 2 mg, intramuscular, Every 6 hours PRN, other, clinically emergent severe agitation, Starting on Ruby 12/01/18 at 1836, For IV administration, do not exceed a rate of 2 mg/minute, Indications: Agitation documented in this encounter Orders Medications Ordered That Dmitry ht Not Have Been Administered Count Last Ordered Date First Ordered Date chlordiazePOXIDE (LIBRIUM) capsule 25 mg 2 12/02/2018 LORazepam (ATIVAN) injection 1 mg 2 019 LORazepam (ATIVAN) injection 2 mg 3 019 12/01/2018 acetaminophen (TYLENOL) tablet 650 mg 1 haloperidol (HALDOL) 2 mg/mL CONCENTRATED oral solution 5 mg 1 12/01/2018 haloperidol (HALDOL) injection 5 mg 1 12/01 hydrOXYzine (ATARAX) tablet 10 mg 1 019 traZODone (DESYREL) tablet 100 mg 1 019 Admission Count Last Ordered Date First Orde red Date ASSIGN PATIENT STATUS 2 12/02/2018 CORE MEASURES Count Last Ordered Date First Ord ered Date REASON FOR NO VTE PROPHYLAXIS AT ADMISSION 1 12/01/2018 documented in this encounter Care Teams Farm Assistant Relationship Specialty Start Date End Date Radha High MD [address] [place] [address] PCP - General 12/01/18 09/03/19 No, Physician 11/28/18 06/25/20 documented as of this encounter
--- OUTSIDE RECORDS SUMMARY | 2024-09-18 05:19 | XMS_ITS | Encounter Summary ---
Author Organization [facility] Facility Care Team Providers Care Oil Well Perforator Operator Name Role Phone Radha High MD Primary Care Provi zhen No, Physician Unavailable Encounter Details Date Type Department Care Team (Latest Contact Info) Description 12/01/2018 Travel Social History Tobacco Use Types Packs/Day Years Used Date Smoking Tobacco: Every Day Smokeless Tobacco: Never Alcohol Use Standard Drinks/Week Comments Yes 3 (1 standard drink = 0.6 oz pur e alcohol) Comments Unknown Sex and Gender Information Value Date Recorded Sex Assigned at Not on file 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 [address] [place] [address] Gal Bass MD [address] [facility] [phone] [place] [address] documented as of this encounter Visit Diagnoses Not on filedocumented in this encounter Care Teams Oil Well Perforator Operator Relationship Specialty Start Date End Date Radha High MD [address] [place] [address] PCP - General 12/01/18 09/03/19 No, Physician 11/28/18 06/25/20 documented as of this encounter
--- OUTSIDE RECORDS SUMMARY | 2024-09-18 05:19 | XMS_ITS | Encounter Summary ---
Author Organization [facility] Healthcare Address [address] [place] [address] Care Team Providers Care Appeals Analyst Name Role Phone Radha High MD Primary Care Provi zhen No, Physician Unavailable Encounter Details Date Type Department Care Team (Latest Contact Info) Description 12/01/2018 3:47 PM CDT - 12/01/2018 4:59 PM CDT Hospital Encounter [facility] [address] [place] [address] Discharge Disposition: Discharge to home or self care Social History Tobacco Use Types Packs/Day Years Used Date Smoking Tobacco: Every Day Smokeless Tobacco: Never Alcohol Use Standard Drinks/Week Comments Yes 3 (1 standard drink = 0.6 oz pur e alcohol) Comments Unknown Sex and Gender Information Value Date Recorded Sex Assigned at Not on file 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 Gender Identity Not on file Sexual [...] (two) times a day 0 11/28/2018 12/02/2018 sertraline (ZOLOFT) 50 mg tabletIndications :anxiety Take 50 mg by mouth daily 0 11/28/2018 08/07/2020 documented as of this encounter Discharge Disposition Disposition Code Departure Means Destination Discharge to home or self care documented in this encounter Plan of Treatment Upcoming Encounters Date Type Department Care Team (Late st Contact Info) Description 11/19/2024 Hospital Encounter [facility] [address] [place] [address] Gal Bass MD [address] [facility] [phone] [place] [address] documented as of this encounter Visit Diagnoses Not on filedocumented in this encounter Care Teams Appeals Analyst Relationship Specialty Start Date End Date Radha High MD [address] [place] [address] PCP - General 12/01/18 09/03/19 No, Physician 11/28/18 06/25/20 documented as of this encounter
--- OUTSIDE RECORDS SUMMARY | 2024-09-18 05:19 | XMS_ITS | Encounter Summary ---
Author Organization [facility] Healthcare Address [address] [place] [address] Care Team Providers Care Senior Java Software Engineer Name Role Phone Unavailable Primary Care Provider Unavailabl e Encounter Details Date Type Department Care Team (Latest Contact Info) Description 10/29/2016 4:57 PM STEEL LOADER - 10/29/2016 8:50 PM STEEL LOADER Hospital Encounter Gail Heller MD [address] [place], [place] [id number] Other specified related conditions, second trimester; Abdominal pain; 17 weeks gestation of ; Nicotine dependence, uncomplicated Social History Tobacco Use Types Packs/Day Years Used Date Smoking Tobacco: Never Assessed Comments Unknown Sex and Gender Information Value Date Recorded Sex Assigned at Not on file 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 Gender Identity Not on file Sexual Orientation Not on file documented as of this encounter Plan of Treatment Upcoming Encounters Date Type Department Care Team (Late st Contact Info) Description 11/19/2024 Hospital Encounter [facility] [address] [place] [address] Gal Bass MD [address] [facility] [phone] [place] [address] documented as of this encounter Procedures Procedure Name Priority Date/Time Associated Diagnosis Comments URINALYSIS Routine 10/29/2016 7:50 PM STEEL LOADER DISCHARGE LABORATORY CUMULATIVE REPORT 10/29/2016 documented in this encounter Results * (ABNORMAL) Urinalysis (10/29/2016 7:50 PM STEEL LOADER) Color, ur Yellow CDR HISTOR ICAL RESULTS Comment:Testing performed by : [facility], [address] [place] [address] Clarity, ur Clear CDR HIST ORICAL RESULTS Comment:Testing performed by : [facility], [address], [place] [address] Specific gravity, ur 1.017 1.001 - 1.033 CDR HISTORICAL RESULTS Comment:Testing performed by : [facility], [address], [place] [address] pH, ur 6.0 5.0 - 8.0 CDR HISTOR ICAL RESULTS Comment:Testing performed by : [facility], [address], [place] [address] Protein, ur Negative Negative CDR HIST ORICAL RESULTS Comment:Testing performed by : [facility], [address] [place] [address] Glucose, ur Negative Negative CDR HIST ORICAL RESULTS Comment:Testing performed by : [facility], [address] [place] [address] Ketones, ur 2+(A) Negative CDR HIST ORICAL RESULTS Comment:Testing performed by : [facility], [address], [place] [address] Bilirubin, ur Negative Negative CDR HI STORICAL RESULTS Comment:Testing performed by : [facility], [address], [place] [address] U Blood Negative Negative CDR HISTOR ICAL RESULTS Comment:Testing performed by : [facility], [address], [place] [address] Urobilinogen, quant, ur Normal CDR HISTORICAL RESULTS Comment:Testing performed by : [facility], [address] [place] [address] Nitrites, ur Negative Negative CDR HIS TORICAL RESULTS Comment:Testing performed by : [facility], [address], [place] [address] Leukocyte esterase, ur Negative Negative CDR HISTORICAL RESULTS Comment:Testing performed by : [facility], [address] [place] [address] Urine 10/29/2016 7:50 PM STEEL LOADER Gail Brush MD LAB BLOOD ORDERABLES Fi nal Result CDR HISTORICAL RESULTS * DISCHARGE LABORATORY CUMULATIVE REPORT (10/29/2016) Narrative 10/29/2016 Ordered by an unspecified provider. Historical Provider LAB BLOOD ORDERABLES Sandy l Result documented in this encounter Visit Diagnoses Diagnosis Other specified related conditions, second trimester Abdominal pain Abdominal pain, unspecified site 17 weeks gestation of Nicotine dependence, uncomplicated documented in this encounter
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
--- OUTSIDE RECORDS SUMMARY | 2024-09-18 05:19 | XMS_ITS | Encounter Summary ---
Author Organization [facility] Healthcare Address [address] [place] [address] Care Team Providers Care Optical Instrument Assembly Supervisor Name Role Phone Unavailable Primary Care Provider Unavailabl e Encounter Details Date Type Department Care Team (Late st Contact Info) Description 07/24/2016 5:19 PM CDT - 07/24/2016 8:17 PM CDT Hospital [place] [address] [facility] [address] [place] [address] Other specified related conditions, first trimester; Weeks of gestation of not specified; Nausea Social History Tobacco Use Types Packs/Day Years Used Date Smoking Tobacco: Never Assessed Comments Unknown Sex and Gender Information Value Date Recorded Sex Assigned at Not on file Legal Sex Female 11:21 AM TOWER ERECTOR Gender Identity Not on file Sexual Orientation Not on file documented as of this encounter Plan of Treatment Upcoming Encounters Date Type Department Care Team (Late st Contact Info) Description 11/19/2024 Hospital Encounter [facility] [address] [place] [address] Gal Bass MD [address] [facility] [place] [phone] [place] [address] documented as of this encounter Visit Diagnoses Diagnosis Other specified related conditions, first trimester Weeks of gestation of not specified Nausea Nausea alone documented in this encounter
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
--- OUTSIDE RECORDS SUMMARY | 2024-09-18 05:19 | XMS_ITS | Encounter Summary ---
Author Organization [facility] Healthcare Address [address] [place] [address] Care Team Providers Care Tour Consultant Name Role Phone Radha High MD Primary Care Provi zhen No, Physician Unavailable Encounter Details Date Type Department Care Team (Latest Contact Info) Description 11/30/2018 9:55 PM CDT - 11/30/2018 10:31 PM CDT Hospital Encounter [facility] [address] [place] [address] Discharge Disposition: Discharge to home or self care Social History Tobacco Use Types Packs/Day Years Used Date Smoking Tobacco: Never Assessed Comments Unknown Sex and Gender Information Value Date Recorded Sex Assigned at Not on file Legal Sex Female 11:21 AM TOURS CAPTAIN Gender Identity Not on file Sexual Orientation Not on file documented as of this encounter Medications at Time of Discharge clonazePAM (KlonoPIN) 2 mg tablet Take 2 [...] st Contact Info) Description 11/19/2024 Hospital Encounter [address] [phone] Gal Bass MD [address] [facility] [phone] [place] [address] documented as of this encounter Visit Diagnoses Not on filedocumented in this encounter Care Teams Tour Consultant Relationship Specialty Start Date End Date Radha High MD [address] [place] [address] PCP - General 11/30/18 11/30/18 No, Physician 11/28/18 06/25/20 documented as of this encounter
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
--- OUTSIDE RECORDS SUMMARY | 2024-09-18 05:19 | XMS_ITS | Encounter Summary ---
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 Gender Identity Not on file Sexual Orientation Not on file documented as of this encounter Plan of Treatment Upcoming Encounters Date Type Department Care Team (Late st Contact Info) Description 11/19/2024 Hospital Encounter [address] [phone] Gal Bass MD [address] [facility] [phone] [place] [address] documented as of this encounter Visit Diagnoses Not on filedocumented in this encounter Care Teams Bakelite Molder Relationship Specialty Start Date End Date Radha High MD [address] [place] [address] PCP - General 12/01/18 09/03/19 No, Physician 11/28/18 06/25/20 documented as of this encounter
--- OUTSIDE RECORDS SUMMARY | 2024-09-18 05:19 | XMS_ITS | Encounter Summary ---
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 Gender Identity Not on file Sexual Orientation Not on file documented as of this encounter Plan of Treatment Upcoming Encounters Date Type Department Care Team (Late st Contact Info) Description 11/19/2024 Hospital Encounter [address] [phone] Gal Bass MD [address] [facility] [phone] [place] [address] documented as of this encounter Procedures Procedure Name Priority Date/Time Associated Diagnosis Comments PLASMA CHORIONIC GONADOTROPIN (HCG), QUANTITATIVE Routine 08/28/2016 1:25 PM MANAGER LINUX PLASMA BASIC METABOLIC PANEL Routine 08/28/2016 1:25 PM MANAGER LINUX BLOOD CELL COUNT (CBC), MORPHOLOGIC EXAM Routine 08/28/2016 1:25 PM MANAGER LINUX DISCHARGE LABORATORY CUMULATIVE REPORT 08/28/2016 documented in this encounter Results * (ABNORMAL) Blood cell count (CBC), morphologic exam (08/28/2016 1:25 PM MANAGER LINUX) WBC 11.5(H) 3.8 - 9.8 K/cumm CDR HISTORICAL RESULTS RBC 4.90 4.20 - 5.20 M/cumm CDR HISTORICAL RESULTS Hgb 13.1 12.0 - 15.0 g/dl CDR HISTORICAL RESULTS Hct 39.8 37.0 - 47.0 % CDR HISTORICAL RESULTS MCV 81.2(L) 82.0 - 96.0 fl CDR HISTORICAL RESULTS MCH 26.7(L) 27.0 - 32.0 pg CDR HISTORICAL RESULTS MCHC 32.9 29.0 - 35.0 g/dl CDR HISTORICAL RESULTS Platelets 281 150 - 450 K/cumm CDR HISTORICAL RESULTS RDW 46.3 36.4 - 46.3 fl CDR HISTORICAL RESULTS Rdw 15.7(H) 11.5 - 14.5 % CDR HISTORICAL RESULTS MPV 11.0 8.6 - 12.6 fl CDR HISTORICAL RESULTS Neutrophils 91.4(H) 42.0 - 85.0 % CDR HISTORICAL RESULTS Neutrophils, abs 10.5(H) 2.1 - 8.5 K/cumm CDR HISTORICAL RESULTS Lymphocytes 3.7(L) 16.0 - 52.0 % CDR HISTORICAL RESULTS Lymphocytes, abs 0.4(L) 0.8 - 5.2 K/cumm CDR HISTORICAL RESULTS Monos 4.4 1.0 - 13.0 % CDR HISTORICAL RESULTS Monocytes, absolute 0.5 0.0 - 1.3 K/cumm CDR HISTORICAL RESULTS Eosinophils 0.1 0.0 - 7.0 % CDR HISTORICAL RESULTS Eosinophils, abs 0.0 0.0 - 0.7 K/cumm CDR HISTORICAL RESULTS Basophils 0.1 0.0 - 4.0 % CDR HISTORICAL RESULTS Basophils, abs 0.0 0.0 - 0.4 K/cumm CDR HISTORICAL RESULTS Young granulocytes, % 0.3 0.0 - 1.0 % CDR HISTORICAL RESULTS Young granulocyte 0.03 0.00 - 0.10 K/cumm CDR HISTORICAL RESULTS NRBC 0.0 0.0 - 0.2 #/100 WBC CDR HISTORICAL RESULTS NRBC, abs 0.00 0.00 - 0.01 K/cumm CDR HISTORICAL RESULTS Blood specimen (specimen) 08/28/2016 1:25 PM MANAGER LINUX Chandler Lomas MD LAB BLOOD ORDERABLES Final [facility] Performing Organization Address [facility] de Phone Number [facility] HISTORICAL RESULTS * (ABNORMAL) Plasma chorionic gonadotropin (HCG), quantitative (08/28/2016 1:25 PM MANAGER LINUX) HCG, quant [id number]( H) 0.0 - 5.0 IUnits/L CDR HISTORICAL RESULTS Comment: HCG, Quantitative Reference Ranges: Negative: ?<6 IU/L Indeterminate: 6-20 IU/L Positive: ? >20 IU/L HCG levels in should double every 3 days for the first 6 weeks. Laine- and postmenopausal women may have higher hCG concentrations (6-15 IU/L) due to pituitary production of hCG. Plasma 08/28/2016 1:25 PM MANAGER LINUX Chandler Lomas MD LAB BLOOD ORDERABLES Final [facility] Performing Organization Address [facility] de Phone Number [facility] HISTORICAL RESULTS * (ABNORMAL) Plasma basic metabolic panel (08/28/2016 1:25 PM MANAGER LINUX) Sodium 133(L) 135 - 145 mmol/L CDR HISTORICAL RESULTS K, pl 4.1 3.5 - 5.1 mmol/L CDR HISTORICAL RESULTS Chloride 103 100 - 114 mmol/L CDR HISTORICAL RESULTS CO2 22 22 - 32 mmol/L CDR HISTORICAL RESULTS BUN 11 10 - 26 mg/dl CDR HISTORICAL RESULTS Glucose 111 70 - 199 mg/dl CDR HISTORICAL RESULTS A. gap 12 8 - 16 mmol/L CDR HISTORICAL RESULTS Creatinine 0.61 0.60 - 1.30 mg/dl CDR HISTORICAL RESULTS Calcium 9.0 8.4 - 10.5 mg/dl CDR HISTORICAL RESULTS eGFR >90 90 - 200 ml/min/1.7 3 m2 CDR HISTORICAL RESULTS Comment: If this individual is -[place], multiply result by 1.21 Repeated results of less than 60 is indicative of chronic kidney disease. MDRD formula has not been validated on individuals greater than 70 years old. Plasma 08/28/2016 1:25 PM MANAGER LINUX us Chandler Lomas MD LAB BLOOD ORDERABLES Final Re sult CDR HISTORICAL RESULTS * DISCHARGE LABORATORY CUMULATIVE REPORT (08/28/2016) Narrative 08/28/2016 Ordered by an unspecified provider. Historical Provider LAB BLOOD ORDERABLES Sandy l Result documented in this encounter Visit Diagnoses Not on filedocumented in this encounter
--- OUTSIDE RECORDS SUMMARY | 2024-09-18 05:19 | XMS_ITS | Encounter Summary ---
Author Organization [facility] Healthcare Address [address] [place] [address] Care Team Providers Care Rotary Veneer Machine Operator Name Role Phone Unavailable Primary Care Provider Unavailabl e Encounter Details Date Type Department Care Team (Late st Contact Info) Description 11/14/2015 6:44 PM MIDDLEWARE ENGINEER - 11/14/2015 10:26 PM MIDDLEWARE ENGINEER [place] [address] [place] [address] Encounter for test with result negative; Amenorrhea Social History Tobacco Use Types Packs/Day Years Used Date Smoking Tobacco: Never Assessed Comments Unknown Sex and Gender Information Value Date Recorded Sex Assigned at Not on file 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 Gender Identity Not on file Sexual Orientation Not on file documented as of this encounter Plan of Treatment Upcoming Encounters Date Type Department Care Team (Late st Contact Info) Description 11/19/2024 Hospital Encounter [address] [phone] Gal Bass MD [address] [facility] [phone] [place] [address] documented as of this encounter Procedures Procedure Name Priority Date/Time Associated Diagnosis Comments DISCHARGE LABORATORY CUMULATIVE REPORT 11/14/2015 documented in this encounter Results * DISCHARGE LABORATORY CUMULATIVE REPORT (11/14/2015) Narrative 11/14/2015 Ordered by an unspecified provider. us Historical Provider LAB BLOOD ORDERABLES Sandy l Result documented in this encounter Visit Diagnoses Diagnosis Encounter for test with result negative Amenorrhea Absence of menstruation documented in this encounter
--- OUTSIDE RECORDS SUMMARY | 2024-09-18 05:19 | XMS_ITS | Encounter Summary ---
Author Organization [facility] Healthcare Address [address] [place] [address] Care Team Providers Care Functional Architect Name Role Phone No, Physician Primary Care Provider [phone] Encounter Details Date Type Department Care Team (Late st Contact Info) Description 01/31/2017 1:01 AM CDT - 01/31/2017 11:59 PM CDT Emergency [facility] Emergency Department [address] [place] [address] Discharge Disposition: Discharge to home or self care Social History Tobacco Use Types Packs/Day Years Used Date Smoking Tobacco: Never Assessed Comments Unknown Sex and Gender Information Value Date Recorded Sex Assigned at Not on file 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 Gender Identity Not on file Sexual Orientation Not on file documented as of this encounter Discharge Disposition Disposition Code Departure Means Destination Discharge to home or self care documented in this encounter Plan of Treatment Upcoming Encounters Date Type Department Care Team (Late st Contact Info) Description 11/19/2024 Hospital Encounter [facility] [address] [place] [address] Gal Bass MD [address] [facility] [phone] [place] [address] documented as of this encounter Visit Diagnoses Not on filedocumented in this encounter Care Teams Functional Architect Relationship Specialty Start Date End Date Joy Physician PCP - General 01/31/17 11/27/18 documented as of this encounter
--- OUTSIDE RECORDS SUMMARY | 2024-09-18 05:19 | XMS_ITS | Encounter Summary ---
Author Organization [facility] Healthcare Address [address] [place] [address] Care Team Providers Care Java Manager Name Role Phone Unavailable Primary Care Provider Unavailabl e Encounter Details Date Type Department Care Team (Late st Contact Info) Description 08/24/2016 11:51 PM AIR ANTISUBMARINE OFFICER - 08/25/2016 2:22 AM AIR ANTISUBMARINE OFFICER Hospital Encounter [facility] Chente Landon MD [address] [facility] [address] [place] [address] Constipation; Procedure and treatment not carried out due to patient leaving prior to being seen by health care provider Social History Tobacco Use Types Packs/Day Years Used Date Smoking Tobacco: Never Assessed Comments Unknown Sex and Gender Information Value Date Recorded Sex Assigned at Not on file Legal Sex Female 11:21 AM AIR ANTISUBMARINE OFFICER Gender Identity Not on file Sexual Orientation Not on file documented as of this encounter Plan of Treatment Upcoming Encounters Date Type Department Care Team (Late st Contact Info) Description 11/19/2024 Hospital Encounter [facility] [address] [place] [address] Gal Bass MD [address] [facility] [phone] [place] [address] documented as of this encounter Visit Diagnoses Diagnosis Constipation Unspecified constipation Procedure and treatment not carried out due to patient leaving prior to being seen by health care provider documented in this encounter
--- OUTSIDE RECORDS SUMMARY | 2024-09-18 05:19 | XMS_ITS | Encounter Summary ---
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 [address] Department [place] [address] * (ABNORMAL) Drug Screen, Urine (11/30/2018 10:55 PM CDT) Amphetamine, ur Not Detected CutOff 500ng/mL [facility] Barbiturates, ur Not Detected CutOff 200ng/mL [facility] Benzodiazepines, ur Not Detected CutOff 100ng/mL [facility] Cannabinoids, ur Detected-Con firmation not performed(A) CutOff 50 ng/mL [facility] Comment: Interpretive Data - Cannabinoids: ??Samples containing greater than 50 ng/mL delta-9 THC -COOH or other cross-reacting compounds are reported as positive. ??False positive and false negative results are possible. ??Presumptive positive specimens will not be subject to confirmatory analysis by mass spectrometry. ??Current Interpretive Data was last reviewed 2018. Cocaine, ur Not Detected CutOff 150ng/mL [facility] Methadone, ur Not Detected CutOff 300ng/mL [facility] Opiates, ur Not Detected CutOff 300ng/mL [facility] Oxycodone, ur Not Detected CutOff 100ng/mL [facility] Phencyclidine, ur Not Detected CutOff 25 ng/mL [facility] Concentration, urine Normal [facility] Urine 11/30/2018 10:5 5 PM CDT 11/30/2018 11:06 PM CDT Narrative [facility] - 11/30/2018 11:45 PM CDT Drug of Abuse screening is performed by immunoassay for medical purposes only. ??This is not to be used for Pain Management purposes. ??Drug of Abuse screening is performed by immunoassay for medical purposes only. ??This is not to be used for Pain Management purposes. Anirudh Ortiz MD LAB URINE ORDERABLES F inal Result [facility] [address] [place] [address] * (ABNORMAL) Urinalysis reflex to microscopic and culture Urine, clean voided (11/30/2018 10:55 PM CDT) Color, ur Straw Yellow [facility] Clarity, ur Clear Clear [facility] Specific gravity, ur 1.006(L) 1.010 - 1.025 [facility] pH, urine 6.0 [facility] Protein, ur ql Negative Negative [facility] Glucose, ur ql Negative Negative [facility] Ketones, ur Negative Negative [facility] Bilirubin, ur Negative Negative [facility] Blood, ur 2+(A) Negative [facility] Urobilinogen, ur <2.0 <2.0 mg/dL [facility] Nitrite, ur Negative Negative [facility] Leukocyte esterase, ur Negative Negative [facility] Urine, clean voided 11/30/2018 10:55 PM CDT 11/30/2018 11:06 PM CDT Narrative [facility] - 11/30/2018 11:21 PM CDT ?? Urine pH is affected by diet, medications, systemic acid-base disturbances, and renal tubular function. ??pH may affect urinary stone formation. ??For example, urine pH below 6.0 may help reduce the tendency for calcium phosphate stones and pH greater than 6.0 may reduce the tendency for uric acid stone formation. Source: [facility]. Last revised 09-30-2017 Anirudh Ortiz MD LAB MICROBIOLOGY - GEN ERAL ORDERABLES Final Result [facility] [address] [place] [address] * eGFR (11/30/2018 10:52 PM CDT) eGFR 127 mL/min/1.7 3 m2 [facility] Comment: Interpretive Data Reference Interval Normal ?>/= 90 mL/min/1.73m2 Mildly decreased* ? 60 - 89 mL/min/1.73m2 Mildly to moderately decreased ?45 - 59 mL/min/1.73m2 Moderately to severely decreased ??30 - 44 mL/min/1.73m2 Severely decreased ?15 - 29 mL/min/1.73m2 Kidney Failure ?< 15 ??mL/min/1.73m2 *Relative to young adult level If -[place] multiply value by 1.16. Estimated glomerular filtration rate is determined by [...] 70. Current interpretive data was last reviewed 2016. Blood specimen (specimen) 11/30/2018 10:52 PM CDT 11/30/2018 10:58 PM CDT Narrative [facility] - 11/30/2018 11:18 PM CDT us Anirudh Ortiz MD LAB BLOOD ORDERABLES F inal Result [facility] [address] Department [place] [address] * Differential, auto (11/30/2018 10:52 PM CDT) Neutrophil abs 5.8 1.7 - 6.5 K/cumm [facility] Imm gran abs 0.0 0.0 - 0.1 K/cumm [facility] Lymphocyte abs 3.3 0.8 - 3.3 K/cumm [facility] Monocyte abs 0.7 0.2 - 0.8 K/cumm [facility] Eosinophil abs 0.2 0.0 - 0.5 K/cumm [facility] Basophil abs 0.0 0.0 - 0.1 K/cumm [facility] Neutrophil pct 57.2 % [facility] Comment: Interpretive Data Percent cell count reference ranges are not reported, since discordance with absolute values may lead to misinterpretation of CBC data. Current Interpretive Data was last revised on 2017. Imm gran pct 0.4 % [facility] Comment: Interpretive Data Percent cell count reference ranges are not reported, since discordance with absolute values may lead to misinterpretation of CBC data. Current Interpretive Data was last revised on 2017. Lymphocyte pct 33.2 % [facility] Comment: Interpretive Data Percent cell count reference ranges are not reported, since discordance with absolute values may lead to misinterpretation of CBC data. Current Interpretive Data was last revised on 2017. Monocyte pct 7.0 % [facility] Comment: Interpretive Data Percent cell count reference ranges are not reported, since discordance with absolute values may lead to misinterpretation of CBC data. Current Interpretive Data was last revised on 2017. Eosinophil pct 1.8 % [facility] Comment: Interpretive Data Percent cell count reference ranges are not reported, since discordance with absolute values may lead to misinterpretation of CBC data. Current Interpretive Data was last revised on 2017. Basophil pct 0.4 % [facility] Comment: Interpretive Data Percent cell count reference ranges are not reported, since discordance with absolute values may lead to misinterpretation of CBC data. Current Interpretive Data was last revised on 2017. Blood specimen (specimen) 11/30/2018 10:52 PM CDT 11/30/2018 10:58 PM CDT Narrative [facility] - 11/30/2018 11:01 PM CDT Anirudh Ortiz MD LAB BLOOD ORDERABLES F inal Result Performing Organization Address [facility] Co de Phone Number JAN[facility] [address] [place] [address] * (ABNORMAL) Acetaminophen level (11/30/2018 10:52 PM CDT) Acetaminophen <5.0(L) 10.0 - 20.0 mcg/mL [facility] Blood specimen (specimen) 11/30/2018 10:52 PM CDT 11/30/2018 10:58 PM CDT Narrative [facility] - 11/30/2018 11:18 PM CDT Anirudh Ortiz MD LAB BLOOD ORDERABLES F inal Result [facility] [address] Department of [employer] [place], [place] [id number] * (ABNORMAL) Ethanol (11/30/2018 10:52 PM CDT) Ethanol 43(H) <=10 mg/dL [facility] Comment: Interpretive Data Legal limit of intoxication > or = 80 mg/dL Levels > or = 400 mg/dL are potentially TOXIC. Current interpretive data was last revised on 2018. Blood specimen (specimen) 11/30/2018 10:52 PM CDT 11/30/2018 10:58 PM CDT Narrative [facility] - 11/30/2018 11:18 PM CDT Anirudh Ortiz MD LAB BLOOD ORDERABLES F inal Result [facility] [address] [place] [address] * (ABNORMAL) CBC with auto differential (11/30/2018 10:52 PM CDT) WBC 10.1(H) 3.8 - 9.9 K/cumm [facility] Hgb 12.2 11.9 - 15.5 g/dL [facility] Hct 40.6 35.6 - 45.5 % [facility] Plt 373 150 - 400 K/cumm [facility] MPV 11.1 9.1 - 12.3 fL [facility] RBC 4.74 3.90 - 5.20 M/cumm [facility] MCV 85.7 81.3 - 96.4 fL [facility] MCH 25.7(L) 27.1 - 33.3 pg [facility] MCHC 30.0(L) 32.3 - 35.7 g/dL [facility] RDW CV 14.7 11.1 - 14.9 % [facility] RDW SD 46.0 35.7 - 48.1 fL [facility] NRBC abs 0.00 0.00 - 0.01 K/cumm [facility] Blood specimen (specimen) 11/30/2018 10:52 PM CDT 11/30/2018 10:58 PM CDT Narrative [facility] - 11/30/2018 11:01 PM CDT us Anirudh Ortiz MD LAB BLOOD ORDERABLES F inal Result [facility] [address] [place] [address] * (ABNORMAL) Comprehensive metabolic panel (11/30/2018 10:52 PM CDT) Sodium 141 135 - 145 mmol/L [facility] Potassium, pl 3.8 3.3 - 4.9 mmol/L [facility] Chloride 103 97 - 110 mmol/L [facility] CO2 22 22 - 32 mmol/L [facility] Anion gap 16(H) 2 - 15 mmol/L [facility] BUN 9 8 - 25 mg/dL [facility] Creatinine 0.64 0.60 - 1.10 mg/dL [facility] Glucose 84 70 - 199 mg/dL [facility] Comment: Interpretive Data Fasting glucose >/= 126 [...] 2017. Calcium 9.1 8.5 - 10.3 mg/dL [facility] Bilirubin, total <0.2 0.1 - 1.2 mg/dL [facility] Protein, pl 7.9 6.5 - 8.5 g/dL [facility] Albumin 4.1 3.5 - 5.0 g/dL [facility] Alk phos 78 40 - 130 Units/L [facility] ALT 23 7 - 45 Units/L [facility] AST 23 10 - 45 Units/L [facility] Blood specimen (specimen) 11/30/2018 10:52 PM CDT 11/30/2018 10:58 PM CDT Narrative [facility] - 11/30/2018 11:18 PM CDT us Anirudh Ortiz MD LAB BLOOD ORDERABLES F inal Result [facility] [address] [facility] [place] [address] documented in this encounter Visit Diagnoses Diagnosis Depression, unspecified depression type- Primary Suicidal ideation documented in this encounter Administered Medications Inactive Administered Medications - up to 3 most recent administrations Medication Order MAR Action Action Date Dose Rate Site haloperidol (HALDOL) injection 5 mg 5 mg, intramuscular, Administer over 5 Minutes, Once, On Ruby 12/01/18 at 0834, For 1 dose Given 12/01/2018 8:40 AM CDT 5 mg Right Deltoid LORazepam (ATIVAN) injection 2 mg 2 mg, intramuscular, Once, On Ruby 12/01/18 at 0820, For 1 dose, For IV administration, do not exceed a rate of 2 mg/minute Given 12/01/2018 8:40 AM CDT 2 mg Left Deltoid nicotine (NICODERM CQ) 21 mg patch 24 hour 1 patch 1 patch, transdermal, Administer over 24 Hours, Daily, First dose on Ruby 12/01/18 at 0900 Medication Applied 12/01/2018 3:05 AM CDT 1 patch Left Shoulder documented in this encounter Active and Recently Administered Medications Times are shown in CDT. Scheduled Medication Order 11/29/2018 11/30/2018 12/01/2018 haloperidol (HALDOL) injection 5 mg (COMPLETED) 5 mg, intramuscular, Administer over 5 Minutes, Once, On Ruby 12/01/18 at 0834, For 1 dose 0840 (Given - Provid er: Jeovanny Pyle RN) LORazepam (ATIVAN) injection 2 mg (COMPLETED) 2 mg, intramuscular, Once, On Ruby 12/01/18 at 0820, For 1 dose, For IV administration, do not exceed a rate of 2 mg/minute 0840 (Given - Provid er: Jeovanny Pyle RN) nicotine (NICODERM CQ) 21 mg patch 24 hour 1 patch 1 patch, transdermal, Administer over 24 Hours, Daily, First dose on Ruby 12/01/18 at 0900 0305 (Medication Sylvia lied - Provider: Marnie Landrum RN)1559 (Due: Medication Removed - Provider: Automatic Discharge Provider - Comment: Time automatically adjusted from order being discontinued) sodium chloride 0.9% bolus 1,000 mL 1,000 mL, intravenous, at 1,000 mL/hr, Administer over 1 Hours, Once, On Ruby 12/01/18 at 0309, For 1 dose 0309 (Due) documented in this encounter Orders Medications Ordered That Dmitry ht Not Have Been Administered Count Last Ordered Date First Ordered Date haloperidol (HALDOL) injection 5 mg 2 12/01 LORazepam (ATIVAN) injection 2 mg 2 019 sodium chloride 0.9% bolus 1,000 mL 1 12/01 documented in this encounter Care Teams Supervisor Erection Shop Relationship Specialty Start Date End Date Radha High MD [address] [place] [address] PCP - General 11/30/18 11/30/18 Radha High MD [address] [place] [address] PCP - General 12/01/18 09/03/19 No, Physician 11/28/18 06/25/20 documented as of this encounter
--- OUTSIDE RECORDS SUMMARY | 2024-09-18 05:29 | XMS_ITS | Encounter Summary ---
Author Organization [facility] Address [address] [facility] [place] [address] Care Team Providers Care Marketing Sales Consultant Name Role Phone Brian Velarde DO Primary Care Provider [phone] Andres Angela MD Unavailable [phone] Brian Velarde DO Unavailable [phone] Reason for Visit * Reason Onset Date Comments Forms 08/25/2019 Encounter Details Date Type Department Care Team (Late st Contact Info) Description 08/25/2019 Telephone [facility] Medical [facility] - Family Medicine [address] [place] [address] Brian Velarde, DO [address] [place] [phone] Forms Social History Tobacco Use Types Packs/Day Years Used Date Smoking Tobacco: Some Days Cigarettes 0.3 2 Smokeless Tobacco: Never Alcohol Use Standard Drinks/Week Comments No 0 (1 standard drink = 0.6 oz pur e alcohol) Sex and Gender Information Value Date Recorded Sex Assigned at Not on file Gender Identity Not on file Sexual Orientation Not on file documented as of this encounter Functional Status Functional Status Response Date of Assess ment Is person deaf or have serious hearing difficult y? No 03/09/2019 Is person blind or have serious difficulty seein g? No 03/09/2019 Does person have serious dif ficulty walking/climbing stairs? No 03/09/2019 Does person have difficulty dressing/bathing? No 03/09/2019 Does person have difficulty doing errands alone? No 03/09/2019 Cognitive Status Response Date of Assessm ent Does person have difficulty concentrating/remembering/making decisions? No 03/09/2019 documented as of this encounter Miscellaneous Notes * Telephone Encounter - Yamilex Kaur - 08/28/2019 11:55 AM CST Provider Recommendation for Medical Accommodation form has been completed and signed by the doctor.Patient is aware of same. 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 Patient also needs to pay the $20 fee for the FMLA form as well. Scanned document into the patient's chart. TENDER * Telephone Encounter - Yamilex Kaur - 08/25/2019 12:52 PM CST Filled out Provider Recommendation for Medical Accommodation form and placed in doctors pod to be signed. TENDER * Telephone Encounter - Yamilex Kaur - 08/25/2019 11:14 AM CST Patient faxed over a Provider Recommendation for Medical Accommodation form and was calling to [facility] that we received it. Told patient that I have received the form. 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 Told patient that I would fill the form out and then call her once it is completed. Patient is aware of the $20 fee. Will fill the form out. TENDER documented in this encounter Plan of Treatment Upcoming Encounters Date Type Department Care Team (Late st Contact Info) Description 09/19/2024 8:15 AM CAGE TENDER Hospital Encounter [facility] M[facility] & Care [address] [place], [place] [id number] documented as of this encounter Visit Diagnoses Not on filedocumented in this encounter Care Teams Marketing Sales Consultant Relationship Specialty Start Date End Date Brian Velarde DO PCP - General Family Medicine 11/28/18 04/15/23 Brian Velarde DO [address] [place] [facility] [place] [phone] PCP - Attributed-[facility] Commercial 07/21/19 03/07/20 Andres Angela MD Psychiatry 12/16/18 documented as of this encounter
--- OUTSIDE RECORDS SUMMARY | 2024-09-18 05:29 | XMS_ITS | Encounter Summary ---
Author Organization [facility] Address [address] [facility] [place] [address] Care Team Providers Care Log Hauler Name Role Phone Brian Velarde DO Primary Care Provider Andres Angela MD Unavailable [phone] Brian Velarde DO Unavailable [phone] Reason for Visit * Reason Onset Date Comments Erroneous encounter-disregard 09/06/2019 Encounter Details Date Type Department Care Team (Late st Contact Info) Description 09/06/2019 Telephone [facility] - Family Medicine [address] [place] [address] Brian Velarde, DO [address] [facility] [phone] Erroneous encounter-disregard Social History Tobacco Use Types Packs/Day Years [...] No 03/09/2019 documented as of this encounter Plan of Treatment Upcoming Encounters Date Type Department Care Team (Late st Contact Info) Description 09/19/2024 8:15 AM VICE PRESIDENT DIGITAL STRATEGIST Hospital Encounter [facility] Maternal & Care [address] [place] [address] documented as of this encounter Visit Diagnoses Not on filedocumented in this encounter Care Teams Log Hauler Relationship Specialty Start Date End Date Brian Velarde DO PCP - General Family Medicine 11/28/18 04/15/23 Brian Velarde DO [address] [place] [phone] PCP - Attributed-[facility] Commercial 07/21/19 03/07/20 Andres Angela MD Psychiatry 12/16/18 documented as of this encounter
--- OUTSIDE RECORDS SUMMARY | 2024-09-18 05:29 | XMS_ITS | Encounter Summary ---
Author Organization [facility] Address [address] [facility] [place] [address] Care Team Providers Care Slot Host Name Role Phone Brian Velarde DO Primary Care Provider [phone] Andres Angela MD Unavailable [phone] EzequielBrian tapia DO Unavailable [phone] Andres Angela MD Unavailable [phone] Encounter Details Date Type Department Care Team (Latest Contact Info) Description 12/11/2019 Travel Social History Tobacco Use Types Packs/Day [...] st Contact Info) Description 09/19/2024 8:15 AM PARAPROFESSIONAL INTERPRETER Hospital Encounter [facility] Maternal & Care [facility] [place] [address] documented as of this encounter Visit Diagnoses Not on filedocumented in this encounter Care Teams Slot Host Relationship Specialty Start Date End Date Brian Velarde DO PCP - General Family Medicine 11/28/18 04/15/23 Brian Velarde DO [address] [place] [place] [phone] PCP - Attributed-[facility] Commercial 07/21/19 03/07/20 Andres Angela MD Psychiatry 12/16/18 Andres Angela MD Psychiatry 11/16/19 documented as of this encounter
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
--- OUTSIDE RECORDS SUMMARY | 2024-09-18 05:29 | XMS_ITS | Encounter Summary ---
Author Organization [facility] Address [address] [place] [address] Care Team Providers Care Six Sigma Project Manager Name Role Phone Brian Velarde DO Primary Care Provider [phone] Andres Angela MD Unavailable [phone] Brian Velarde DO Unavailable [phone] Andres Angela MD Unavailable [phone] Encounter Details Date Type Department Care Team (Latest Contact Info) Description 01/05/2020 Travel Social History Tobacco Use Types Packs/Day [...] have Coronavirus / COVID-19? No / Unsure 01/05/2020 8:57 AM CDT documented as of this encounter [...] st Contact Info) Description 09/19/2024 8:15 AM MARKING STITCHER Hospital Encounter [facility] Maternal & Care [address] [place], [place] [phone] documented as of this encounter Visit Diagnoses Not on filedocumented in this encounter Care Teams Six Sigma Project Manager Relationship Specialty Start Date End Date Brian Velarde DO PCP - General Family Medicine 11/28/18 04/15/23 Brian Velarde DO [address] [place] [phone] PCP - [facility] Commercial 07/21/19 03/07/20 Andres Angela MD Psychiatry 12/16/18 Andres Angela MD Psychiatry 11/16/19 documented as of this encounter
--- OUTSIDE RECORDS SUMMARY | 2024-09-18 05:29 | XMS_ITS | Encounter Summary ---
Author Organization [facility] Address [address] [place] [address] Care Team Providers Care Detail Assembler Name Role Phone Brian Velarde DO Primary Care Provider [phone] Andres Angela MD Unavailable [phone] Brian Velarde DO Unavailable [phone] Reason for Visit * Reason Onset Date Comments MEDICATION REFILL 11/09/2019 Encounter Details Date Type Department Care Team (Late st Contact Info) Description 11/09/2019 Refill [facility] - Family Medicine [address] [place] [address] Brian Velarde, DO [address] [place] [phone] MEDICATION REFILL Social History Tobacco Use Types [...] encounter Miscellaneous Notes * Telephone Encounter - Jonathan Bailey - 11/14/2019 8:14 AM CST Unable to leave message - mailbox full NT SERVICES ANALYST * Telephone Encounter - Brian Velarde DO - 11/14/2019 7:32 AM CST Overdue for f/u NT SERVICES ANALYST * Telephone Encounter - Jonathan Bailey - 11/09/2019 2:00 PM CST Marnie Jones Requested Prescriptions Pending Prescriptions Disp Refills ??? ARIPiprazole (ABILIFY) 5 MG tablet 30 tablet Sig: Take 1 tablet by mouth at bedtime ??? baclofen (LIORESAL) 10 MG tablet 30 tablet Sig: Take 1 tablet by mouth 3 times daily as needed for Muscle Spasms May cause drowsiness. ??? clonazePAM (KLONOPIN) 2 MG tablet 90 tablet Sig: Take 1 tablet by mouth 3 times daily as needed ??? dicyclomine (BENTYL) 10 MG capsule 120 capsule Sig: Take 1 capsule by mouth 4 times daily ??? escitalopram (LEXAPRO) 20 MG tablet 90 tablet Sig: Take 1 tablet by mouth once daily No Known Allergies Last refill- Aripiprazole = 08/11/19 Baclofen = 08/11/19 Clonazepam = 09/15/19 Dicyclomine = 07/11/19 Escitalopram = 05/30/19 Last OV-08/11/19 Future OV none NT SERVICES ANALYST documented in this encounter Plan of Treatment Upcoming Encounters Date Type Department Care Team (Late st Contact Info) Description 09/19/2024 8:15 AM CLIENT SERVICES ANALYST Hospital Encounter [facility]'s [facility] [address] [place] [id number] documented as of this encounter Visit Diagnoses Not on filedocumented in this encounter Care Teams Detail Assembler Relationship Specialty Start Date End Date [place], Brian R, DO PCP - General Family Medicine 11/28/18 04/15/23 Brian Velarde DO [address] [place] [phone] PCP - Attributed-[facility] Commercial 07/21/19 03/07/20 Andres Angela MD Psychiatry 12/16/18 documented as of this encounter
--- OUTSIDE RECORDS SUMMARY | 2024-09-18 05:29 | XMS_ITS | Encounter Summary ---
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 Hospital Encounter [facility]'s Health Maternal & Care [facility] [place] [address] documented as of this encounter Visit Diagnoses Not on filedocumented in this encounter Care Teams Web Consultant Relationship Specialty Start Date End Date Brian Velarde DO PCP - General Family Medicine 11/28/18 04/15/23 Brian Velarde DO [address] [place] [place] [phone] PCP - Attributed-[facility] Commercial 07/21/19 03/07/20 Andres Angela MD Psychiatry 12/16/18 Andres Angela MD Psychiatry 11/16/19 documented as of this encounter
--- OUTSIDE RECORDS SUMMARY | 2024-09-18 05:29 | XMS_ITS | Encounter Summary ---
Author Organization [facility] Address [facility] [facility] [place] [address] Care Team Providers Care Tool Or Die Drawing Checker Name Role Phone Brian Velarde DO Primary Care Provider [phone] Andres Angela MD Unavailable [phone] Brian Velarde DO Unavailable [phone] Andres Angela MD Unavailable [phone] Reason for Visit * Reason Onset Date Comments Medication Prior Auth Request 11/21/2019 Encounter Details Date Type Department Care Team (Late st Contact Info) Description 11/21/2019 Telephone [facility] - Family Medicine [address] [place] [address] Brian Velarde, DO [address] [place] [phone] Medication Prior Auth Request Social History Tobacco Use Types Packs/Day Years [...] * Telephone Encounter - Yamilex Kaur - 11/21/2019 4:30 PM CST Received a letter from [employer] stating that there is already a prior authorization request on file for Aripiprazole 5 mg until 08/16/20. Informed Adina at the pharmacy of [facility] and she was able to successfully submit the request. MANAGER RN * Telephone Encounter - Vincent Yamilex L - 11/21/2019 3:39 PM CST Received prior authorization request from the pharmacy for Aripiprazole 5 mg. Filled out form electronically and sent to the plan via Covermymeds. Waiting on determination. MANAGER RN documented in this encounter Plan of Treatment Upcoming Encounters Date Type Department Care Team (Late st Contact Info) Description 09/19/2024 8:15 AM UNIT MANAGER RN Hospital Encounter [facility] Maternal & Care [address] [place] [address] documented as of this encounter Visit Diagnoses Not on filedocumented in this encounter Care Teams Tool Or Die Drawing Checker Relationship Specialty Start Date End Date Brian Velarde DO PCP - General Family Medicine 11/28/18 04/15/23 Brian Velarde DO [address] [place] [facility] [place] [facility] [place] [phone] PCP - [facility] Commercial 07/21/19 03/07/20 Andres Angela MD Psychiatry 12/16/18 Andres Angela MD Psychiatry 11/16/19 documented as of this encounter
--- OUTSIDE RECORDS SUMMARY | 2024-09-18 05:29 | XMS_ITS | Encounter Summary ---
Author Organization [facility] Address [address] [facility] [place] [address] Care Team Providers Care Windows Consultant Name Role Phone Brian Velarde DO Primary Care Provider [phone] Andres Angela MD Unavailable [phone] Brian Velarde DO Unavailable [phone] Reason for Visit * Reason Onset Date Comments Forms 09/06/2019 FMLA Encounter Details Date Type Department Care Team (Late st Contact Info) Description 09/06/2019 Telephone [facility] Medical [facility] - Family Medicine [address] [place] [address] Brian Velarde, DO [address] [place] [phone] Forms (FMLA) Social History Tobacco Use Types Packs/Day Years [...] * Telephone Encounter - Yamilex Kaur - 09/21/2019 9:02 AM CST Updated FMLA form and faxed it to along with a cover sheet. Scanned updated form into the patient's chart. Informed patient of same. L STENOGRAPHER * Telephone Encounter - Brian Velarde DO - 09/21/2019 7:25 AM CST Yes can update forms L STENOGRAPHER * Telephone Encounter - Yamilex Kaur - 09/19/2019 9:55 AM CST The patient needs these dates added to her FMLA form and not her Accommodation form. States that her working from home doesn't start until 10/16/18. Patient states that she missed work on the daybecause of her anxiety and ptsd as well as not having her medication. Can we update the form with the dates from the previous message? Please advise. L STENOGRAPHER * Telephone Encounter - Brian Velarde DO - 09/15/2019 5:55 PM CST Yamilex I'm confused why she needs FMLA for a snow day? I understand that driving envokes her anxiety but was she supposed to go and couldn't because of the snow and that was somehow different than anormal day she misses? 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 L STENOGRAPHER * Telephone Encounter - Yamilex Kaur - 09/06/2019 3:35 PM CST Patient called stating that she needs more days added to her FMLA form that was only for the days she missed in July. Claims that she missed work on 08/28/19, 08/30/19 and 09/05/19. States that she missed work yesterday 09/05/19 due to the snow, the fact that she doesn't have her Clonazepam, heranxiety and PTSD. Patient also needs a refill on her Clonazepam. Can you send a new script and alsodo you want me to add those dates to the FMLA form? Or would you like her to come in for an appointment? Please advise. L STENOGRAPHER documented in this encounter Plan of Treatment Upcoming Encounters Date Type Department Care Team (Late st Contact Info) Description 09/19/2024 8:15 AM LEGAL STENOGRAPHER Hospital Encounter [facility] Maternal & Care [address] [place] [address] documented as of this encounter Visit Diagnoses Not on filedocumented in this encounter Care Teams Windows Consultant Relationship Specialty Start Date End Date Brian Velarde DO PCP - General Family Medicine 11/28/18 04/15/23 Brian Velarde DO [address] [place] [phone] PCP - Attributed-[facility] Commercial 07/21/19 03/07/20 Andres Angela MD Psychiatry 12/16/18 documented as of this encounter
--- OUTSIDE RECORDS SUMMARY | 2024-09-18 05:29 | XMS_ITS | Encounter Summary ---
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 Hospital Encounter [facility]'s Health Maternal & Care [facility] [place] [address] documented as of this encounter Visit Diagnoses Not on filedocumented in this encounter Care Teams Environmental Advisor Relationship Specialty Start Date End Date Brian Velarde DO PCP - General Family Medicine 11/28/18 04/15/23 Brian Velarde DO [address] [place] [phone] PCP - Attributed-[facility] Commercial 07/21/19 03/07/20 Andres Angela MD Psychiatry 12/16/18 Andres Angela MD Psychiatry 11/16/19 documented as of this encounter
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
--- OUTSIDE RECORDS SUMMARY | 2024-09-18 05:29 | XMS_ITS | Encounter Summary ---
Author Organization [facility] Address [facility] [place] [address] Care Team Providers Care Director Of Spa And Guest Experience Name Role Phone Brian Velarde DO Primary Care Provider [phone] Andres Angela MD Unavailable [phone] Brian Velarde DO Unavailable [phone] Andres Anegla MD Unavailable [phone] Reason for Visit * Reason Onset Date Comments MEDICATION REFILL 02/20/2020 Encounter Details Date Type Department Care Team (Late st Contact Info) Description 02/20/2020 Refill [facility] - Family Medicine [address] [place] [address] Brian Velarde, DO [address] [place] [id number] MEDICATION REFILL Social History Tobacco Use Types [...] encounter Miscellaneous Notes * Telephone Encounter - Talat Rodriguez - 02/20/2020 9:59 AM CDT Requested Prescriptions Pending Prescriptions Disp Refills ??? clonazePAM (KLONOPIN) 2 MG tablet 90 tablet Sig: Take 1 tablet by mouth 3 times daily as needed Last refill- 11/14/19 Last OV-08/11/19 Future OV-none documented in this encounter Plan of Treatment Upcoming Encounters Date Type Department Care Team (Late st Contact Info) Description 09/19/2024 8:15 AM [facility] Hospital Encounter [facility] [address] [place], [place] [id number] documented as of this encounter Visit Diagnoses Not on filedocumented in this encounter Care Teams Director Of Spa And Guest Experience Relationship Specialty Start Date End Date Brian Velarde DO PCP - General Family Medicine 11/28/18 04/15/23 Brian Velarde DO [address] [place] [address] PCP - Attributed-[facility] Commercial 07/21/19 03/07/20 Andres Angela MD Psychiatry 12/16/18 Andres Angela MD Psychiatry 11/16/19 documented as of this encounter
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
--- OUTSIDE RECORDS SUMMARY | 2024-09-18 05:29 | XMS_ITS | Encounter Summary ---
Author Organization [facility] Address [address] [facility] [place] [address] Care Team Providers Care Client Services Manager Name Role Phone Brian Velarde DO Primary Care Provider [phone] Andres Angela MD Unavailable [phone] Brian Velarde DO Unavailable Andres Angela MD Unavailable [phone] Encounter Details Date Type Department Care Team (Latest Contact Info) Description 12/27/2019 Travel Social History Tobacco Use Types Packs/Day [...] have Coronavirus / COVID-19? No / Unsure 12/27/2019 9:04 AM CDT documented as of this encounter [...] st Contact Info) Description 09/19/2024 8:15 AM EMBEDDED FIRMWARE DEVELOPER Hospital Encounter [facility] Maternal & Care [address] [place], [place] [id number] documented as of this encounter Visit Diagnoses Not on filedocumented in this encounter Care Teams Client Services Manager Relationship Specialty Start Date End Date Brian Velarde DO PCP - General Family Medicine 11/28/18 04/15/23 Brian Velarde DO [address] [place] [address] PCP - [facility] Commercial 07/21/19 03/07/20 Andrse Angela MD Psychiatry 12/16/18 Andres Angela MD Psychiatry 11/16/19 documented as of this encounter
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
--- OUTSIDE RECORDS SUMMARY | 2024-09-18 05:29 | XMS_ITS | Encounter Summary ---
Author Organization [facility] Address [address] [place] [address] Care Team Providers Care Allied Health Professional Name Role Phone MaggiedeejayBrian DO Primary Care Provider [phone] Andres Angela MD Unavailable [phone] Andres Angela MD Unavailable [phone] Reason for Visit * Reason Comments Test pt just seen at [facility], pt wants a 2nd opinion on recent dx of ectopic Encounter Details Date Type Department Care Team (Late st Contact Info) Description 08/21/2021 7:21 PM MUFFLE OPERATOR - 08/21/2021 7:36 PM MUFFLE OPERATOR Emergency ER at [address] [id number] Discharge Disposition: Left Against Medical Advice/Discontinued Care Social History Tobacco Use Types Packs/Day Years Used Date Smoking Tobacco: Some Days Cigarettes 0.3 2 Smokeless Tobacco: Never Alcohol Use Standard Drinks/Week Comments No 0 (1 standard drink = 0.6 oz pur e alcohol) Comments Yes Sex and Gender Information Value [...] No 03/09/2019 documented as of this encounter Medications at Time of Discharge Medication Sig Dispensed Refills Start Date End Date baclofen (LIORESAL) 10 MG tablet Take 1 tablet by mouth 3 times daily as needed for Muscle Spasms May cause drowsiness. 30 tablet 11/14/2019 09/11/2021 clonazePAM (KLONOPIN) 2 MG tablet Take 1 tablet by mouth 3 times daily as needed 90 tablet 11/14/2019 09/11/2021 dicyclomine (BENTYL) 10 MG capsule Take 1 capsule by mouth 4 times daily 120 capsule 11/14/2019 09/11/2021 escitalopram (LEXAPRO) 20 MG tablet Take 1 tablet by mouth once daily 90 tablet 11/14/2019 09/11/2021 ESTARYLLA 0.25-35 MG-MCG tablet TK 1 T PO D 1 packet 11 04/14/2019 09/11/2021 metoprolol tartrate (LOPRESSOR) 50 MG tablet Take 1 tablet by mouth 2 times daily 60 tablet 1 04/14/2019 09/11/2021 QUEtiapine (SEROQUEL) 300 MG tabletIndications:Mood Disorder Take 1 tablet by mouth at bedtime Reasons: Mood Disorder 30 tablet 1 01/18/2020 09/11/2021 documented as of this encounter Plan of Treatment Upcoming Encounters Date Type Department Care Team (Late st Contact Info) Description 09/19/2024 8:15 AM [facility] Hospital Encounter [facility] Maternal & Care [address] [place], [place] [id number] documented as of this encounter Visit Diagnoses Not on filedocumented in this encounter Care Teams Allied Health Professional Relationship Specialty Start Date End Date Brian Velarde DO PCP - General Family Medicine 11/28/18 04/15/23 Andres Angela MD Psychiatry 12/16/18 Andres Angela MD Psychiatry 11/16/19 documented as of this encounter
--- OUTSIDE RECORDS SUMMARY | 2024-09-18 05:29 | XMS_ITS | Encounter Summary ---
Author Organization [facility] Address [address] [place] [address] Care Team Providers Care Colorer Hides And Skins Name Role Phone Brian Velarde DO Primary Care Provider [phone] Andres Angela MD Unavailable [phone] EzequielBrian tapia DO Unavailable [phone] Andres Angela MD Unavailable [phone] Encounter Details Date Type Department Care Team (Latest Contact Info) Description 11/27/2019 Travel Social History Tobacco Use Types Packs/Day [...] st Contact Info) Description 09/19/2024 8:15 AM FLYER REPAIRER Hospital Encounter [facility] Maternal & Care [facility] [place] [address] documented as of this encounter Visit Diagnoses Not on filedocumented in this encounter Care Teams Colorer Hides And Skins Relationship Specialty Start Date End Date Brian Velarde DO PCP - General Family Medicine 11/28/18 04/15/23 Brian Velarde DO [address] [place] [phone] PCP - Attributed-[facility] Commercial 07/21/19 03/07/20 Andres Angela MD Psychiatry 12/16/18 Andres Angela MD Psychiatry 11/16/19 documented as of this encounter
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
--- OUTSIDE RECORDS SUMMARY | 2024-09-18 05:29 | XMS_ITS | Encounter Summary ---
Author Organization [facility] Address [address] [place] [address] Care Team Providers Care Hand Cutter Name Role Phone Brian Velarde DO Primary Care Provider [phone] Andres Angela MD Unavailable [phone] Reason for Visit * Reason Onset Date Comments Referral 06/09/2019 Encounter Details Date Type Department Care Team (Late st Contact Info) Description 06/09/2019 Telephone [facility] Medical [facility] - Family Medicine [address] [place] [address] Brian Velarde DO [address] [place] [address] Referral Social History Tobacco Use Types Packs/Day Years [...] Miscellaneous Notes * Telephone Encounter - Danielle Cardoso - 06/12/2019 11:20 AM CDT Attempted to contact pt, mailbox is full. * Telephone Encounter - Brian Velarde DO - 06/12/2019 10:49 AM CDT Ref placed. * Telephone Encounter - Talat Rodriguez - 06/09/2019 10:10 AM CDT Pt requesting referral for a psychiatrist, pt states her anxiety is up and she feels scared. Pt wascrying during the call, she denied having any thoughts of harming herself or others. documented in this encounter Plan of Treatment Upcoming Encounters Date Type Department Care Team (Late st Contact Info) Description 09/19/2024 8:15 AM [facility] Hospital Encounter [facility] Maternal & Care [address] [place] [address] documented as of this encounter Visit Diagnoses Diagnosis VANDANA (generalized anxiety disorder)- Primary Generalized anxiety disorder Encounter for maternal care for suspected poor growth in roman in third trimester (HCC)- Primary Aversion to food: limiting protein intake Feeding difficulties and mismanagement Abnormal ultrasound: dopplers elevated S/d ratio Abnormal findings on screening High-risk in third trimester (HCC) Previous baby with growth restriction Encounter for screening (HCC) documented in this encounter Care Teams Hand Cutter Relationship Specialty Start Date End Date Brian Velarde DO PCP - General Family Medicine 11/28/18 04/15/23 Andres Angela MD Psychiatry 12/16/18 documented as of this encounter
--- OUTSIDE RECORDS SUMMARY | 2024-09-18 05:29 | XMS_ITS | Encounter Summary ---
Author Organization [facility] Address [address] [facility] [place] [address] Care Team Providers Care Labor Employment Associate Name Role Phone Brian Velarde DO Primary Care Provider [phone] Andres Angela MD Unavailable [phone] Brian Velarde DO Unavailable Reason for Visit * Reason Onset Date Comments Question 09/15/2019 Encounter Details Date Type Department Care Team (Late st Contact Info) Description 09/15/2019 Telephone [facility] Medical [facility] - Family Medicine [address] [place] [address] Brian Velarde, DO [address] [place] [address] Question Social History Tobacco Use Types Packs/Day Years [...] encounter Miscellaneous Notes * Telephone Encounter - Vincent Yamilex Melton - 09/19/2019 9:54 AM CST Duplicate encounter. Spoke to the patient. MACY PICKING TECH * Telephone Encounter - Vincent Yamilex Melton - 09/15/2019 4:26 PM CST Per Danielle the patient called requesting to speak with me and would like for me to call her back. MACY PICKING TECH documented in this encounter Plan of Treatment Upcoming Encounters Date Type Department Care Team (Late st Contact Info) Description 09/19/2024 8:15 AM PHARMACY PICKING TECH Hospital Encounter [facility] Maternal & Care [address] [place] [address] documented as of this encounter Visit Diagnoses Not on filedocumented in this encounter Care Teams Labor Employment Associate Relationship Specialty Start Date End Date Brian Velarde DO PCP - General Family Medicine 11/28/18 04/15/23 Brian Velarde DO [address] [place] [address] PCP - Attributed-[facility] Commercial 07/21/19 03/07/20 Andres Angela MD Psychiatry 12/16/18 documented as of this encounter
--- OUTSIDE RECORDS SUMMARY | 2024-09-18 05:29 | XMS_ITS | Encounter Summary ---
Author Organization [facility] Address [address] [place] [address] Care Team Providers Care Gritting Machine Operator Name Role Phone Brian Velarde DO Primary Care Provider [phone] Andres Angela MD Unavailable [phone] Brian Velarde DO Unavailable [phone] Reason for Visit * Reason Onset Date Comments Patient Requested Call 08/24/2019 Encounter Details Date Type Department Care Team (Late st Contact Info) Description 08/24/2019 Telephone [facility] - Family Medicine [address] [place] [address] Brian Velarde, DO [address] [place] [address] Patient Requested Call Social History Tobacco Use Types Packs/Day Years [...] * Telephone Encounter - Talat Rodriguez - 08/24/2019 12:37 PM CST Pt requesting to speak with Dr. 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 Velarde SORTER documented in this encounter Plan of Treatment Upcoming Encounters Date Type Department Care Team (Late st Contact Info) Description 09/19/2024 8:15 AM PLUG SORTER Hospital Encounter [facility] Maternal & Care [address] [place] [address] documented as of this encounter Visit Diagnoses Not on filedocumented in this encounter Care Teams Gritting Machine Operator Relationship Specialty Start Date End Date Brian Velarde DO PCP - General Family Medicine 11/28/18 04/15/23 Brian Velarde DO [address] [place] [facility] [place] [place] [phone] PCP - Attributed-[facility] Commercial 07/21/19 03/07/20 Andres Angela MD Psychiatry 12/16/18 documented as of this encounter
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
--- OUTSIDE RECORDS SUMMARY | 2024-09-18 05:29 | XMS_ITS | Encounter Summary ---
Author Organization [facility] Address [address] [place] [address] Care Team Providers Care Customer Service Operator Name Role Phone Brian Velarde Primary Care Provider [phone] Andres Angela MD Unavailable [phone] Andres Angela MD Unavailable [phone] Reason for Visit * Reason Comments PROBLEM Client reports being pregnanat, LMP Sep? 2020 reports having lower back and abdominal pain since yesterday Vaginal Bleeding Vaginal bleeding wit h clots since ysterday. Encounter Details Date Type Department Care Team (Late st Contact Info) Description 12/04/2020 10:20 AM CDT - 12/04/2020 2:06 PM CDT Emergency ER at [address] [address] Threatened miscarriage (HCC) (Primary Dx); Vaginal bleeding in , first trimester (HCC) Discharge Disposition: Left Against Medical Advice/Discontinued Care [...] have Coronavirus / COVID-19? No / Unsure 11/22/2020 12:58 PM HVAC DESIGN MECHANICAL ENGINEER documented as of this encounter Last Filed Vital Signs Vital Sign Reading Time Taken Comments Blood Pressure 120/77 12/04/2020 10:16 AM CDT Pulse 94 12/04/2020 10:16 AM CDT Temperature 37 ??C (98.6 ??F) 12/04/2020 10:16 AM CDT Respiratory Rate 18 12/04/2020 10:16 AM CDT Oxygen Saturation 100% 12/04/2020 10:16 AM CDT Inhaled Oxygen Concentration - - Weight 86.2 kg (190 lb) 12/04/2020 10:16 AM CDT Height 154.9 cm (5' 1 ) 12/04/2020 10:16 AM CDT Body Mass Index 35.9 12/04/2020 10:16 AM CDT documented in this encounter Functional Status Functional [...] No 03/09/2019 documented as of this encounter Discharge Instructions * Attachments The following attachments cannot be sent through Care Everywhere. * Threatened Miscarriage (AfterCare(R) Instructions(ER/ED)) (Fijian) documented in this encounter Medications at Time [...] 01/18/2020 09/11/2021 documented as of this encounter ED Notes * Madison Charles, XIOMY-SCANNING CLERK - 12/04/2020 10:33 AM CDT CC: PROBLEM (Client reports being pregnanat, LMP Sep? 2020 reports having lower back and abdominal pain since yesterday) and Vaginal Bleeding (Vaginal bleeding with clots since ysterday.) Provider in Triage HPI: Marnie Jones is a 24 year old female who presents with vaginal spotting that started yesterday along with increased bleeding with clots present today and suprapubic discomfort. Patient reports she knows that she is due to home test but is still in process of waiting for an appointment at [facility]. Reports history of irregular periods but last menstrual cycle is estimated to be of mid September. This would be 2nd with 1 living child. Denies any other associated symptoms. Review of Systems: Primary System Noted in HPI Constitutional: No fevers or chills Psychiatric: No mood changes Limited Chart History: Past Medical History: Diagnosis Date ??? Anxiety ??? Chlamydia contact, treated 07/29/2013 reports repeat infection 2014 ??? History of asthma as a child Past Surgical History: Procedure Laterality Date ??? NEGATIVE SURGICAL HISTORY No current facility-administered medications for this encounter. Current Outpatient Medications Medication Sig Dispense Refill ??? baclofen (LIORESAL) 10 MG tablet Take 1 tablet by mouth 3 times daily as needed for Muscle Spasms May cause drowsiness. (Patient not taking: Reported on 11/16/2019) 30 tablet 0 ??? clonazePAM (KLONOPIN) 2 MG tablet Take 1 tablet by mouth 3 times daily as needed 90 tablet 0 ??? dicyclomine (BENTYL) 10 MG capsule Take 1 capsule by mouth 4 times daily 120 capsule 0 ??? escitalopram (LEXAPRO) 20 MG tablet Take 1 tablet by mouth once daily 90 tablet 0 ??? ESTARYLLA 0.25-35 MG-MCG tablet TK 1 T PO D (Patient not taking: Reported on 11/16/2019) 1 packet 11 ??? metoprolol tartrate (LOPRESSOR) 50 MG tablet Take 1 tablet by mouth 2 times daily 60 tablet 1 ??? QUEtiapine (SEROQUEL) 300 MG tablet Take 1 tablet by mouth at bedtime Reasons: Mood Disorder 30tablet 1 No Known Allergies PCP: Brian Velarde, (Above may be pending completion) VS: BP 120/77 Pulse 94 Temp 98.6 ??F (37 ??C) (Oral) Resp 18 Ht 1.549 m (5' 1 ) Wt 86.2 kg (190 lb) SpO2 100% BMI 35.9 kg/m2 Pertinent Physical Findings: Constitutional: vitals wnl, WDWN Head: Head normocephalic, atraumatic Eyes: conjunctiva clear ENT: no rhinorrhea Neck: neck supple, no nuchal rigidity Resp: respirations even and unlabored, lungs clear bilaterally CV: Heart RRR, no m/c/r/g Abd: nondistended Skin: warm, dry; no obvious rash Psych: Pt is alert and oriented x3 w good recall and normal affect MDM: I have reviewed all lab and imaging resulted ordered during this visit and available at the time ofthis note. Triage notes and available nursing notes reviewed. Previous medical record reviewed whenavailable. Management options include but not limited to: physical exam, laboratory testing, discussion with other providers. Plan: labs done for quant HCG prior to US order 11:50 - called patient to room to discuss that ultrasound will now be ordered since her hCG quantitative level is back. Patient not answering call several times. RN reports patient did state she was leaving since she was not getting quicker care. Patient left AMA 12:06 - patient now came back into the ER asking if she was called yet. Chart reestablished Ultrasound does not show any evidence of intrauterine and states it appears to be a spontaneous . Referral to OBGYN given for follow-up Diagnosis: Threatened miscarriage; vaginal bleeding in , 1st trimester Pt is medically stable for discharge at this time. ?? I have given the patient instructions regarding her diagnosis, expectations, follow up, and return precautions. I explained to the patient that emergent conditions may arise and to return to the ER for new, worsening, or any persistent conditions. I've explained the importance of following up with her Primary Care Physician-(or the referral physician listed below) as instructed. The patient verbalized understanding of the discharge instructions. documented in this encounter Plan of Treatment Upcoming Encounters Date Type Department Care Team (Late st Contact Info) Description 09/19/2024 8:15 AM HVAC DESIGN MECHANICAL ENGINEER Hospital Encounter [facility] [address] [place] [id number] documented as of this encounter Procedures Procedure Name Priority Date/Time Associated Diagnosis Comments US OB LESS 14 WKS W TRANSV W DOPP STAT 12/04/2020 1:17 PM CDT Threatened miscarriage (HCC) Vaginal bleeding in , first trimester (HCC) URINE MICROSCOPIC ONLY REFLEX TO CULTURE STAT 12/04/2020 11:00 AM CDT URINALYSIS REFLEX MICROSCOPIC REFLEX CULTURE STAT 12/04/2020 11:00 AM CDT TYPE + SCREEN PANEL STAT 12/04/2020 1 1:00 AM CDT CBC W AUTO DIFFERENTIAL STAT 12/04/2020 11:00 AM CDT COMPREHENSIVE METABOLIC PANEL STAT 12/04/2020 11:00 AM CDT HCG BETA BLOOD QUANTITATIVE STAT 12/04/2020 11:00 AM CDT documented in this encounter Results * US OB LESS14 WK TRANS/TRNSAB/DOP (12/04/2020 1:17 PM CDT) Anatomical Region Laterality Modality Pelvis Ultrasound 12/04/2020 1:37 PM CDT Impressions 12/04/2020 1:41 PM CDT No intrauterine evident. Given history, this spontaneous is preferred. Mild endometrial hyperplasia with trace amount of fluid in the endometrial canal. No dominant soft tissue residual process to support a large volume of retained products of conception. *Reading Radiologist: Sonu Whitley on 12/04/2020 at 1:41 PM Narrative 12/04/2020 1:41 PM CDT OB ultrasound less than 14 weeks HISTORY: Threatened , vaginal bleeding, TECHNIQUE: Transabdominal transvaginal sonography was performed. Grayscale color and postoperative sonography performed. FINDINGS: Beta-hCG 6.56 Last measure. October 04, 2020. Gestational age by last measure. A weeks 5 days. The uterus measures 8.3 x 4.0 x 4.6 cm. The right ovary measures 3.5 x 1.8 x 1.6 cm. Left ovary measures 3.6 x 1.7 x 2.0 cm. No endometrial canal fluid pocket to denote gestational sac. The endometrial stripe measures about 5 mm with trace amount of fluid in the endometrial canal. No hyperemia contents of the endometrial canal. Tiny right follicular cysts. Normal low resistance flow right ovary. The left ovary also shows tiny follicular cysts also with normal low resistance flow. No adnexal mass lesion evident. Procedure Note Sonu Wihtley MD - 12/04/2020 OB ultrasound less than 14 weeks HISTORY: Threatened , vaginal bleeding, TECHNIQUE: Transabdominal transvaginal sonography was performed. Grayscale color and postoperative sonography performed. FINDINGS: Beta-hCG 6.56 Last measure. October 04, 2020. Gestational age by last measure. A weeks 5 days. The uterus measures 8.3 x 4.0 x 4.6 cm. The right ovary measures 3.5 x 1.8 x 1.6 cm. Left ovary measures 3.6 x 1.7 x 2.0 cm. No endometrial canal fluid pocket to denote gestational sac. The endometrial stripe measures about 5 mm with trace amount of fluid in the endometrial canal. No hyperemia contents of the endometrial canal. Tiny right follicular cysts. Normal low resistance flow right ovary. The left ovary also shows tiny follicular cysts also with normal low resistance flow. No adnexal mass lesion evident. IMPRESSION No intrauterine evident. Given history, this spontaneous is preferred. Mild endometrial hyperplasia with trace amount of fluid in the endometrial canal. No dominant soft tissue residual process to support a large volume of retained products of conception. *Reading Radiologist: Sonu Whitley on 12/04/2020 at 1:41 PM Madison R Charles RAW MATERIAL PLANNER-SCANNING CLERK US ORDERABLES * (ABNORMAL) URINE MICROSCOPIC ONLY REFLEX TO CULTURE (12/04/2020 11:00 AM CDT) Reflex Status Culture not indicated 12/04/2020 11:30 AM CDT [facility] RBC UA 3-5 None Seen, 0-2, 3-5 # /hpf 12/04/2020 11:30 AM CDT [facility] WBC UA 0-5 None Seen, 0-5 # /hpf 12/04/2020 11:30 AM CDT [facility] Bacteria UA Trace(A) None Seen 12/04/2020 11:30 AM CDT [facility] Squamous Epithelial Cells 3-5 None Seen, 0-2, 3-5 /hpf 12/04/2020 11:30 AM CDT [facility] Mucus UA 1+ /LPF 12/04/2020 11:30 AM CDT [facility] Urine URINE SPECIMEN OBTAINED BY CLEAN CATCH PROCEDURE / Unknown Collection / Unknown 12/04/2020 11:00 AM CDT 12/04/2020 11:13 AM CDT Narrative [facility] - 12/04/2020 11:30 AM CDT Madison Charles APRN-SCANNING CLERK LAB - URINALYSIS ORDERABLES Performing Organization Address City/[facility]/ZIP Co de Phone Number [facility] [address] [place] [address] * TYPE + SCREEN PANEL (12/04/2020 11:00 AM CDT) ABO Rh A POS 12/04/2020 11:55 AM CDT [facility] Comment:History checked. Antibody Screen NEG 11:55 AM CDT [facility] Blood Bank BLOOD SPECIMEN / Unknown Venipuncture / Unknown 12/04/2020 11:00 AM CDT 12/04/2020 11:14 AM CDT Madison Charles APRN-SCANNING CLERK LAB - BLOOD BANK ORDERABLES [facility] [address] [id number] [phone] * (ABNORMAL) URINALYSIS REFLEX MICROSCOPIC REFLEX CULTURE (12/04/2020 11:00 AM CDT) Color UA Yellow Straw, Yellow 12/04/2020 11:22 AM CDT [facility] Clarity UA Cloudy(A) Clear 12/04/2020 11:22 AM CDT [facility] Glucose UA Negative Negative 12/04/2020 11:22 AM CDT [facility] Bilirubin UA Negative Negative 12/04/2020 11:22 AM CDT [facility] Ketone UA Negative Negative 12/04/2020 11:22 AM CDT [facility] Specific Skippers UA 1.012 1.005 - 1.030 12/04/2020 11:22 AM CDT [facility] Blood UA 3+(A) Negative 12/04/2020 11:22 AM CDT [facility] pH UA 7.0 5.0 - 8.0 pH 12/04/2020 11:22 AM CDT [facility] Protein UA Negative Negative 12/04/2020 11:22 AM CDT [facility] Urobilinogen UA Negative Negative mg/dL 12/04/2020 11:22 AM CDT [facility] Nitrite UA Negative Negative 12/04/2020 11:22 AM CDT [facility] Leukocyte UA Negative Negative 12/04/2020 11:22 AM CDT [facility] Urine Microscopy Urine microscopy to follow 12/04/2020 11:22 AM CDT [facility] Reflex Status Culture not indicated 12/04/2020 11:22 AM CDT [facility] Urine URINE SPECIMEN OBTAINED BY CLEAN CATCH PROCEDURE / Unknown Collection / Unknown 12/04/2020 11:00 AM CDT 12/04/2020 11:13 AM CDT Narrative [facility] - 12/04/2020 11:22 AM CDT Madison Charles APRN-SCANNING CLERK LAB - URINALYSIS ORDERABLES [facility] [address] [id number] * HCG BETA BLOOD QUANTITATIVE (12/04/2020 11:00 AM CDT) hCG Quantitative 6.56 mIU/mL 12/05/19 11:41 AM CDT [facility] Blood BLOOD SPECIMEN / Unknown Venipuncture / Unknown 12/04/2020 11:00 AM CDT 12/04/2020 11:14 AM CDT Narrative [facility] - 12/04/2020 11:41 AM CDT ? hCG Reference Range, mIU/mL: ? Males ? 0-2.0 ? Non Females ? 0-6.0 ? Perimenopausal Females ages 41-55* ?0-7.7 ? Postmenopausal Females age >55* ? 0-14 ? Females, Weeks after Last Menstrual Period ?0.2-1 week ? 5-50 ?1 - 2 weeks ?50-500 ?2 - 3 weeks ?100-5000 ?3 - 4 weeks ?500-10,000 ?4 - 5 weeks ?1000-50,000 ?5 - 6 weeks ?10,000-100,000 ?6 - 8 weeks ?15,000-200,000 ?2 - 3 months ? 10,000-100,000 ?Trophoblastic Disease ?>100,000 *In higher than expected hCG in females > age 40, a serum FSH >20 IU/L makes unlikely. Madison Charles RAW MATERIAL PLANNER-SCANNING CLERK LAB - CHEMISTRY O RDERABLES [facility] [address] [place] [address] * (ABNORMAL) CBC W AUTO DIFFERENTIAL (12/04/2020 11:00 AM CDT) WBC 7.6 4.4 - 10.7 x10E9/L 12/04/2020 11:24 AM CDT [facility] WBC Corrected 12/04/2020 11:24 AM CDT [facility] RBC 4.58 3.80 - 5.20 x10E12/L 12/04/2020 11:24 AM CDT [facility] Hemoglobin 10.0(L) 12.0 - 15.6 gm/dL 12/04/2020 11:24 AM CDT [facility] Hematocrit 33.3(L) 35.9 - 45.5 % 12/04/2020 11:24 AM CDT [facility] MCV 72.7(L) 80.7 - 98.3 fl 12/04/2020 11:24 AM CDT [facility] MCH 21.8(L) 26.7 - 34.0 pg 12/04/2020 11:24 AM CDT [facility] MCHC 30.0(L) 30.8 - 35.9 gm/dL 12/04/2020 11:24 AM CDT [facility] Platelet Count 431(H) 153 - 416 x10E9/L 12/04/2020 11:24 AM CDT [facility] RDW-CV 18.9(H) 12.1 - 14.9 % 12/04/2020 11:24 AM CDT [facility] MPV 10.3 9.4 - 12.9 fl 12/04/2020 11:24 AM CDT [facility] Neutrophils % 54.7 44.0 - 73.0 % 12/04/2020 11:24 AM CDT [facility] Lymphocytes % 36.8 20.0 - 43.0 % 12/04/2020 11:24 AM CDT [facility] Monocytes % 6.1 5.0 - 13.0 % 12/04/2020 11:24 AM CDT [facility] Eosinophils % 1.7 0.0 - 6.0 % 12/04/2020 11:24 AM CDT [facility] Basophils % 0.4 0.0 - 2.0 % 12/04/2020 11:24 AM CDT [facility] Immature Granulocytes 0.3 0 - 1 % 12/04/2020 11:24 AM CDT [facility] Neutrophil Absolute 4.14 2.01 - 7.14 x10E9/L 12/04/2020 11:24 AM CDT [facility] Lymphocytes Absolute 2.78 1.07 - 3.94 x10E9/L 12/04/2020 11:24 AM CDT [facility] Monocytes Absolute 0.46 0.26 - 1.07 x10E9/L 12/04/2020 11:24 AM CDT [facility] Eosinophils Absolute 0.13 0 - 0.47 x10E9/L 12/04/2020 11:24 AM CDT [facility] Basophils Absolute 0.03 0 - 0.08 x10E9/L 12/04/2020 11:24 AM CDT [facility] Immature Granulocytes Absolute 0.02 0.00 - 0.06 x10E9/L 12/04/2020 11:24 AM CDT [facility] nRBC Auto 0 /100 WBC 12/04/2020 11:24 AM CDT [facility] Blood BLOOD SPECIMEN / Unknown Venipuncture / Unknown 12/04/2020 11:00 AM CDT 12/04/2020 11:14 AM CDT Madison Charles RAW MATERIAL PLANNER-SCANNING CLERK LAB - HEMATOLOGY ORDERABLES [facility] [address] [place] [address] * (ABNORMAL) COMPREHENSIVE METABOLIC PANEL (12/04/2020 11:00 AM CDT) [facility] Glucose 91 70 - 105 mg/dL 12/04/2020 11:34 AM CDT [facility] Sodium 138 136 - 145 mmol/L 12/04/2020 11:34 AM CDT [facility] Potassium 4.0 3.5 - 5.1 mmol/L 12/04/2020 11:34 AM CDT [facility] Chloride 107 98 - 107 mmol/L 12/04/2020 11:34 AM CDT [facility] CO2 22(L) 23 - 31 mmol/L 12/04/2020 11:34 AM CDT [facility] Calcium 8.7 8.4 - 10.4 mg/dL 12/04/2020 11:34 AM CDT [facility] Anion Gap 9 8 - 18 mmol/L 12/04/2020 11:34 AM CDT [facility] Comment:Attention clinician: ??Reference Range change. BUN 10 7 - 18.7 mg/dL 12/04/2020 11:34 AM CDT [facility] Creatinine 0.79 0.57 - 1.11 mg/dL 12/04/2020 11:34 AM CDT [facility] Alkaline Phosphatase 72 40 - 150 U/L 12/04/2020 11:34 AM CDT [facility] Comment:Attention clinician: ??Reference Range change. ALT 14 0 - 61 U/L 12/04/2020 11:34 AM CDT [facility] AST 12 5 - 34 U/L 12/04/2020 11:34 AM CDT [facility] Protein Total 7.8 6.4 - 8.3 gm/dL 12/04/2020 11:34 AM CDT [facility] Albumin 4.1 3.5 - 5.2 gm/dL 12/04/2020 11:34 AM CDT [facility] Bilirubin Total 0.3 0.2 - 1.2 mg/dL 12/04/2020 11:34 AM CDT [facility] Comment:Attention clinician: ??Reference Range change. eGFR by MDRD >60 >60 mL/min/1.7 3m2 12/04/2020 11:34 AM CDT [facility] eGFR by MDRD >60 >60 mL/min/1.7 3m2 12/04/2020 11:34 AM CDT [facility] Blood BLOOD SPECIMEN / Unknown Venipuncture / Unknown 12/04/2020 11:00 AM CDT 12/04/2020 11:14 AM CDT Madison Charles RAW MATERIAL PLANNER-SCANNING CLERK LAB - CHEMISTRY O RDERABLES [facility] [address] [place] [address] documented in this encounter Visit Diagnoses Diagnosis Threatened miscarriage (HCC)- Primary Threatened , unspecified as to episode of care Vaginal bleeding in , first trimester (HCC) Encounter for maternal care for suspected poor growth in roman in third trimester (HCC)- Primary Aversion to food: limiting protein intake Feeding difficulties and mismanagement Abnormal ultrasound: dopplers elevated S/d ratio Abnormal findings on screening High-risk in third trimester (HCC) Previous baby with growth restriction Encounter for screening ([facility]) documented in this encounter Care Teams Customer Service Operator Relationship Specialty Start Date End Date Brian Velarde DO PCP - General Family Medicine 11/28/18 04/15/23 Andres Angela MD Psychiatry 12/16/18 Andres Angela MD Psychiatry 11/16/19 documented as of this encounter
--- OUTSIDE RECORDS SUMMARY | 2024-09-18 05:29 | XMS_ITS | Encounter Summary ---
Author Organization [facility] Address [address] [place] [address] Care Team Providers Care Float Nurse Name Role Phone Brian Velarde DO Primary Care Provider [phone] Andres Angela MD Unavailable [phone] Brian Velarde DO Unavailable [phone] Andres Angela MD Unavailable [phone] Encounter Details Date Type Department Care Team (Latest Contact Info) Description 12/19/2019 Travel Social History Tobacco Use Types Packs/Day [...] have Coronavirus / COVID-19? No / Unsure 12/19/2019 9:48 AM CDT documented as of this encounter [...] st Contact Info) Description 09/19/2024 8:15 AM DIRECTOR OF CARDIAC CATH LAB Hospital Encounter [facility] Care [address] [place], [place] [id number] documented as of this encounter Visit Diagnoses Not on filedocumented in this encounter Care Teams Float Nurse Relationship Specialty Start Date End Date Brian Velarde DO PCP - General Family Medicine 11/28/18 04/15/23 Brian Velarde DO [address] [place] [place] [address] PCP - [facility] Commercial 07/21/19 03/07/20 Andres Angela MD Psychiatry 12/16/18 Andres Angela MD Psychiatry 11/16/19 documented as of this encounter
--- OUTSIDE RECORDS SUMMARY | 2024-09-18 05:29 | XMS_ITS | Encounter Summary ---
Author Organization [facility] Address [address] [place] [address] Care Team Providers Care Mold Carpenter Name Role Phone Brian Velarde DO Primary Care Provider [phone] Andres Angela MD Unavailable [phone] Brian Velarde DO Unavailable [phone] Andres Angela MD Unavailable [phone] Encounter Details Date Type Department Care Team (Latest Contact Info) Description 12/14/2019 Travel Social History Tobacco Use Types Packs/Day [...] have Coronavirus / COVID-19? No / Unsure 12/14/2019 11:10 AM CDT documented as of this encounter [...] st Contact Info) Description 09/19/2024 8:15 AM METALLURGICAL LAB TECHNICIAN Hospital Encounter [facility] [address] [place], [place] [id number] documented as of this encounter Visit Diagnoses Not on filedocumented in this encounter Care Teams Mold Carpenter Relationship Specialty Start Date End Date Brian Velarde DO PCP - General Family Medicine 11/28/18 04/15/23 Brian Velarde DO [address] [place] [address] PCP - [facility] Commercial 07/21/19 03/07/20 Andres Angela MD Psychiatry 12/16/18 Andres Angela MD Psychiatry 11/16/19 documented as of this encounter
--- OUTSIDE RECORDS SUMMARY | 2024-09-18 05:29 | XMS_ITS | Encounter Summary ---
Author Organization [facility] Address [address] [place] [address] Care Team Providers Care Choir Teacher Name Role Phone Brian Velarde DO Primary Care Provider [phone] Andres Angela MD Unavailable [phone] EzequielBrian tapia DO Unavailable [phone] Reason for Visit * Reason Onset Date Comments Transitional Care 08/08/2019 Encounter Details Date Type Department Care Team (Late st Contact Info) Description 08/08/2019 Patient Outreach [facility] - Care Coordination [address] [id number] Yuridia Harris Transitional Care Social History Tobacco Use Types Packs/Day [...] encounter Miscellaneous Notes * Telephone Encounter - Yuridia Harris - 08/08/2019 10:23 AM CST This encounter was an Active engagement with the patient. Low Risk Discharge: Follow Up Phone Call Reason For Call: ER Discharge [facility]: [place], [place] Most recent hospital / facility discharge date: 08/07/19 General Clinical / Health Status General Clinical Did you call your PCP prior to going to the ED?: No Overall, how would you say you were feeling since discharge?: About the same Are you able to get around and do your routine activities?: No Any new medical concerns since you were discharged?: No Do you remember what the doctor said your DX was?: Yes Pt is able to correctly state D/C Instructions, including S/S to watch for and who to contact for worsening symptoms?: Yes Have you had to go to the ER/UC since most recent hospitalization for any reason? : No Medication Reconciliation Discharge Medication list was reviewed and compared with Current Medications. Pt is able to correctly state how to take medications?: Yes Have you filled all your prescriptions?: Yes Marnie was given an opportunity to ask questions about medications. Answers were provided. Clarification of Physician Appointments and Lab Tests Have you made a follow up physician appointment within the recommended days of DC?: Yes Were you told you needed an appointment with a specialist, tests or other service provider?: No Do you have transportation to get to your appointment?: Yes Coordination of Home Services / Social History Do you currently have Home Health care?: No Have Help at Home?: No help at home now What to do if a problem arises : Actions / Interventions Discussed options for recieving care and symptom management, such as calling the PCP or utilizing an Urgent Care center before symptoms become acute. Education / Assistance need identified: None at this time Marnie was provided the opportunity to ask questions, and instructed to call Dr. Brian Velarde,DO should any concerns arise. SETTER documented in this encounter Plan of Treatment Upcoming Encounters Date Type Department Care Team (Late st Contact Info) Description 09/19/2024 8:15 AM TIRE SETTER Hospital Encounter [facility] [address] [place] [id number] documented as of this encounter Visit Diagnoses Not on filedocumented in this encounter Care Teams Choir Teacher Relationship Specialty Start Date End Date Brian Velarde DO PCP - General Family Medicine 11/28/18 04/15/23 Brian Velarde DO [address] [place] [id number] PCP - Attributed-[facility] 07/21/19 03/07/20 Andres Angela MD Psychiatry 12/16/18 documented as of this encounter
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
--- OUTSIDE RECORDS SUMMARY | 2024-09-18 05:29 | XMS_ITS | Encounter Summary ---
Author Organization [facility] Address [address] [place] [address] Care Team Providers Care School Traffic Supervisor Name Role Phone Brian Velarde Primary Care Provider [phone] Andres Angela MD Unavailable [phone] Andres Angela MD Unavailable [phone] Encounter Details Date Type Department Care Team (Latest Contact Info) Description 11/22/2020 Travel Social History Tobacco Use Types Packs/Day [...] COVID-19? No / Unsure 11/22/2020 12:58 PM DIAMOND MOUNTER documented as of this encounter Functional Status [...] st Contact Info) Description 09/19/2024 8:15 AM DIAMOND MOUNTER Hospital Encounter [facility] [address] [place], [place] [id number] documented as of this encounter Visit Diagnoses Not on filedocumented in this encounter Care Teams School Traffic Supervisor Relationship Specialty Start Date End Date Brian Velarde DO PCP - General Family Medicine 11/28/18 04/15/23 Andres Angela MD Psychiatry 12/16/18 Andres Angela MD Psychiatry 11/16/19 documented as of this encounter
--- OUTSIDE RECORDS SUMMARY | 2024-09-18 05:29 | XMS_ITS | Encounter Summary ---
Author Organization [facility] Address [address] [facility] [place] [address] Care Team Providers Care Air Conditioning Supervisor Name Role Phone Brian Velarde DO Primary Care Provider [phone] Andres Angela MD Unavailable [phone] Brian Velarde DO Unavailable [phone] Andres Angela MD Unavailable Encounter Details Date Type Department Care Team (Latest Contact Info) Description 01/01/2020 Travel Social History Tobacco Use Types Packs/Day [...] have Coronavirus / COVID-19? 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 Hospital Encounter [facility] [address] [place], [place] [id number] documented as of this encounter Visit Diagnoses Not on filedocumented in this encounter Care Teams Air Conditioning Supervisor Relationship Specialty Start Date End Date Brian Velarde DO PCP - General Family Medicine 11/28/18 04/15/23 Brian Velarde DO [address] [place] [id number] PCP - [facility] Commercial 07/21/19 03/07/20 Andres Angela MD Psychiatry 12/16/18 Andres Angela MD Psychiatry 11/16/19 documented as of this encounter
--- OUTSIDE RECORDS SUMMARY | 2024-09-18 05:29 | XMS_ITS | Patient Health Summary ---
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 Madison Charles APRN-MASCARA MOLDER LAB - CHEMISTRY O RDERABLES [facility] [address] [place] [address] * HCG BETA BLOOD QUANTITATIVE (12/04/2020 11:00 AM CDT) Only the most recent of2 resultswithin the time period is included. Pathologist [facility] [place] hCG Quantitative 6.56 mIU/mL 12/05/19 11:41 AM [...] FSH >20 IU/L makes unlikely. Madison Charles POLISHING MACHINE TENDER-MASCARA MOLDER LAB - CHEMISTRY O RDERABLES [facility] [address] [place] [address] * CARDIAC EKG ORDER (08/09/2019 8:11 PM [facility] ELECTROLYTIC) Only the most recent of2 resultswithin the time period is included. Narrative 08/09/2019 8:11 PM [facility] ELECTROLYTIC Ordered by an unspecified provider. Scanned Document CARDIAC SERVICES ORD ERABLES * CT THORAX ABDOMEN PELVIS W CONT (08/07/2019 8:18 PM [facility] ELECTROLYTIC) Anatomical Region Laterality Modality Chest, Abdomen, Pelvis Computed Tomography 08/07/2019 8:30 PM [facility] ELECTROLYTIC Impressions 08/07/2019 8:37 PM [facility] ELECTROLYTIC No acute findings in the chest and abdomen. A trace of free fluid is visible in the pelvis in association with a 1.2 cm left adnexal cyst. Please see above for other findings. Reading Radiologist: Vincent Brooks MD on 08/07/2019 at 8:37 PM Narrative 08/07/2019 8:[address] CHEST, ABDOMEN AND PELVIS INDICATION: Back [...] 08/07/2019 at 8:37 PM Cortez Thuc Hang POLISHING MACHINE TENDER-MASCARA MOLDER CT ORDERABLES * CT CERVICAL SPINE NON CONTRAST (08/07/2019 7:54 PM ET[facility]ER ELECTROLYTIC) Anatomical Region Laterality Modality Spine Computed Tomogra phy 08/07/2019 8:42 PM [facility]ER ELECTROLYTIC Impressions 08/07/2019 8:43 PM ETCHER ELECTROLYTIC No fracture can be identified. ??Please see above. Reading Radiologist: Vinecnt Brooks MD on 08/07/2019 at 8:43 PM Narrative 08/07/2019 8:43 PM [facility] ELECTROLYTIC Examination: CT Cervical Spine, without contrast. Information [...] grammatical or syntax problems by a trained medical care evaluation specialist. For questions about the report, please contact [...] grammatical or syntax problems by a trained medical care evaluation specialist. For questions about the report, please contact the Radiology Department. IMPRESSION No fracture can be identified. Please see above. Reading Radiologist: Vincent Brooks MD on 08/07/2019 at 8:43 PM Diego Valdez POLISHING MACHINE TENDER-MASCARA MOLDER CT ORDERABLES * CT HEAD NON CONTRAST (08/07/2019 7:53 PM ETCHER ELECTROLYTIC) Only the most recent of2 resultswithin the time period is included. Anatomical Region Laterality Modality Head Computed Tomogra phy 08/07/2019 8:23 PM [facility]CHER ELECTROLYTIC Impressions 08/07/2019 8:24 PM ETCHER ELECTROLYTIC No acute findings in the brain. ??Noncontrast brain CT. Please see above. Reading Radiologist: Vincent Brooks MD on 08/07/2019 at 8:24 PM Narrative 08/07/2019 8:24 PM [facility]ER ELECTROLYTIC EXAMINATION: CT BRAIN WITHOUT CONTRAST. Information from [...] grammatical or syntax problems by a trained medical care evaluation specialist. Findings: There is no intracranial mass-effect or [...] grammatical or syntax problems by a trained medical care evaluation specialist. Findings: There is no intracranial mass-effect or [...] MD on 08/07/2019 at 8:[address] ORDERABLES * EKG 12-LEAD (08/07/2019 6:37 PM ETCHER ELECTROLYTIC) Only the most recent of6 resultswithin the time period is included. Ventricular Rate 83 BPM [facility] Atrial Rate 83 BPM [facility] P-R Interval 150 ms [facility] QRS Duration ms 82 ms [facility] Q-T Interval ms 366 ms [facility] QTC Calculation (Bezet) 430 ms [facility] Calculated P [place] 58 degrees [facility] Calculated R [place] 14 degrees [facility] Calculated T [place] 3 degrees [facility] Interpretation EKG Sinus rhythm with Premature atrial complexes with Aberrant conduction Otherwise normal ECG No previous ECGs available Confirmed by RADHA SAAVEDRA MD ([id number]) on 08/10/2019 9:02:54 AM [facility] 08/07/2019 6:37 PM [facility] ELECTROLYTIC 08/10/2019 9:02 AM [facility] ELECTROLYTIC Reed Eng MD ECG ORDERABLES [facility] * (ABNORMAL) DRUG SCREEN TOX LIMITED BLD PNL 3 INHOUSE (08/07/2019 6:08 PM [facility] ELECTROLYTIC) Only the most recent of2 resultswithin the time period is included. Acetaminophen <3.0(L) 10.0 - 30.0 ug/mL 08/07/2019 7:21 PM [facility] ELECTROLYTIC [facility] Ethanol <10.0 <10 mg/dL 08/07/2019 7:21 PM [facility]ER ELECTROLYTIC [facility] Salicylate <5.0(L) 15.0-<30.0 mg/dL 08/07/2019 7:21 PM ETCHER ELECTROLYTIC [facility] Blood BLOOD SPECIMEN / Unknown Venipuncture / Unknown 08/07/2019 6:08 PM [facility] ELECTROLYTIC 08/07/2019 6:11 PM [facility] ELECTROLYTIC Narrative [facility] - 08/07/2019 7:21 PM ETCHER ELECTROLYTIC [facility] ACETAMINOPHEN COMMENT Critical values: 4 Hours [...] may alter the peak level. Contact the [facility] at or reserved for healthcare professionals to assist you in evaluating potentially toxic acetaminophen levels. Reed Eng MD LAB - CHEMISTRY SANGITA ARAIZA Performing Organization Address City/[facility]/ZIP Co de Phone Number [facility] [address] [place] [phone] * PTT (08/07/2019 6:08 PM ETCHER ELECTROLYTIC) PTT 29.3 23.0 - 38.4 sec 08/07/2019 6:29 PM [facility]ER ELECTROLYTIC [facility] Blood BLOOD SPECIMEN / Unknown Venipuncture / Unknown 08/07/2019 6:08 PM ET[facility]ER ELECTROLYTIC 08/07/2019 6:11 PM [facility] ELECTROLYTIC Narrative [facility] - 08/07/2019 6:29 PM [facility]ER ELECTROLYTIC Heparin Therapeutic Range for PTT: ??71.0 - 109.0 seconds. Diego Valdez APRN-KULWINDER LAB - COAGULATIO N ORDERABLES [facility] [address] [place] [address] * (ABNORMAL) PT-INR (08/07/2019 6:08 PM ET[facility]ER ELECTROLYTIC) PT 14.3 12.1 - 14.8 sec 08/07/2019 6:29 PM ETCHER ELECTROLYTIC [facility] INR 1.2(H) 0.9 - 1.1 08/07/2019 6:29 PM ETCHER ELECTROLYTIC [facility] Blood BLOOD SPECIMEN / Unknown Venipuncture / Unknown 08/07/2019 6:08 PM ETCHER ELECTROLYTIC 08/07/2019 6:11 PM ETCHER ELECTROLYTIC Narrative [facility] - 08/07/2019 6:29 PM ETCHER ELECTROLYTIC Conventional Warfarin Anticoagulant Therapy: INR Reference Range: ??2.0-3.0 Intensive Warfarin Anticoagulant Therapy: INR Reference Range: ? 2.5-3.5 Diego BRANDT LAB - COAGULATIO N ORDERABLES Performing Organization Address [facility] Co de Phone Number [address] [address] * LIPASE BLOOD (08/07/2019 6:08 PM ETCHER ELECTROLYTIC) Only the most recent of3 resultswithin the time period is included. Pathologist [facility] [place] Lipase 26 8 - 78 U/L 08/07/2019 6:32 PM ETCHER ELECTROLYTIC [facility] Blood BLOOD SPECIMEN / Unknown Venipuncture / Unknown 08/07/2019 6:08 PM ETCHER ELECTROLYTIC 08/07/2019 6:11 PM ETCHER ELECTROLYTIC Diego BRANDT LAB - CHEMISTRY ORDERABLES Performing Organization Address [facility] Co de Phone Number [facility] [address] [place] [phone] * XR CERVICAL SPINE 2 OR 3 VWS (08/07/2019 1:24 PM ETCHER ELECTROLYTIC) Anatomical Region Laterality Modality Spine Radiographic Karen ging 08/07/2019 1:30 PM ETCHER ELECTROLYTIC Narrative 08/07/2019 1:30 PM [facility]CHER ELECTROLYTIC Cervical spine Indication for examination: Trauma with [...] SPINE 2 OR 3VW (08/07/2019 1:23 PM ETCHER ELECTROLYTIC) Anatomical Region Laterality Modality Spine Radiographic Karen ging 08/07/2019 1:30 PM ETCHER ELECTROLYTIC Narrative 08/07/2019 1:31 PM ETCHER ELECTROLYTIC Lumbar spine Indication for examination: Trauma with [...] Mccurdy MD DIAGNOSTIC IMAGING O RDERABLES * HCG URINE QUALITATIVE (08/07/2019 11:56 AM ETCHER ELECTROLYTIC) Pathologist [facility] [place] hCG Qualitative Urine Negative Negative 08/07/2019 12:[address] [facility] Urine URINE / Unknown Collection / Unknown 08/07/2019 11:56 AM ETCHER ELECTROLYTIC 08/07/2019 12:02 PM [facility] Reed Eng MD LAB - URINALYSIS ORD ERABLES [facility] [address] [place] [address] * (ABNORMAL) DRUG SCREEN TOX URINE PANEL (08/07/2019 11:56 AM ETCHER ELECTROLYTIC) Only the most recent of4 resultswithin the time period is included. [facility] Amphetamines Screen Urine Not detected Not detected 08/07/2019 7:[address] [facility] Barbiturates Screen Urine Not detected Not detected 08/07/2019 7:[address] [facility] Benzodiazepines Screen Urine Not detected Not detected 08/07/2019 7:[address] [facility] Cannabinoids Screen Urine Detected(A) Not detected 08/07/2019 7:[address] [facility] Cocaine Screen Urine Not detected Not detected 08/07/2019 7:[address] [facility] Fentanyl Urine Not detected Not detected 08/07/2019 7:[address] [facility] Methadone Screen Urine Not detected Not detected 08/07/2019 7:[address] [facility] Opiate Screen Urine Not detected Not detected 08/07/2019 7:[address] [facility] Phencyclidine Screen Urine Not detected Not detected 08/07/2019 7:[address] [facility] Urine URINE / Unknown Collection / Unknown 08/07/2019 11:56 AM ETCHER ELECTROLYTIC 08/07/2019 12:02 PM [facility] Narrative [facility] - 08/07/2019 7:22 PM [facility] This drug screen is designed for [...] MD LAB - URINE CHEMISTR Y ORDERABLES [facility] [address] [place] [address] * HCG URINE QUALITATIVE - POINT OF CARE (AMB) (05/10/2019) HCG Qual Urine Negative Negative QC Verified Yes Yes Urine URINE / Unknown 05/10/2019 Brian Velarde DO LAB - POINT OF CARE ORDERABLES * (ABNORMAL) URINALYSIS AUTO - POINT OF CARE (05/10/2019) Clarity UA POCT cloudy Color UA POCT malinda Leukocyte UA neg Negative Nitrite UA POCT neg Negative Urobilinogen UA 3.5(A) 0.1 - 1.0 Protein UA POCT 1+ Negative pH UA 6.0 5.0 - 8.0 pH units Blood UA neg Negative Specific Hoffman UA POCT 1.025 1.002 - 1.030 Ketone UA neg Negative Bilirubin UA POCT neg Negative Glucose UA neg Negative Urine URINE / Unknown 05/10/2019 Brian Velarde DO LAB - POINT OF CARE ORDERABLES * CARDIAC RHYTHM STRIP ORDER (03/10/2019 12:16 PM CDT) Narrative 03/10/2019 12:16 PM CDT Ordered by an unspecified provider. Scanned Document CARDIAC SERVICES ORD ERABLES * ECHOCARDIOGRAM 2D WITH DOPPLER (03/09/2019 11:44 AM CDT) 03/09/2019 11:4 4 AM CDT Narrative [facility] - 03/09/2019 5:[address] PM [address]T [address] [address] Transthoracic Echocardiogram 2D, M-mode, Doppler, and Color Doppler Patient: MARNIE MURPHY MR number: [id number] Height: 61 in Weight: 184.6 lb BSA: 1.83 m?? Study date: 09-Mar-2019 : 1995 Age: 23 years Gender: Female Race: Black Platinum Smith: ??Veronika Valladares RDCS Referring Physician: ??Nate Nelson MD Reading Physician: ??Dontrell Clifford MD Summary: - ??Clinical question: - ??Chest pain, SVT - ??Left ventricle: - ??Systolic function was normal. Ejection fraction was estimated to be 75 %. - ??There were no regional wall motion abnormalities. - ??Wall thickness was normal. Indications: Chest pain, SVT Procedure: The procedure was performed in the echo lab. This was a routine study. The transthoracic approach was used. The study included complete 2D imaging, M-mode, complete spectral Doppler, and color Doppler. Systolic blood pressure was 117 mmHg. Diastolic blood pressure was 85 mmHg. Left ventricle: Size was normal. Systolic function was normal. Ejection fraction was estimated to be 75 %. There were no regional wall motion abnormalities. Wall thickness was normal. Doppler: Left ventricular diastolic function parameters were normal. Aortic valve: The valve was trileaflet. Leaflets exhibited normal thickness and normal cuspal separation. Doppler: There was no stenosis. There was no regurgitation. Aorta: The root exhibited normal size. Mitral valve: Valve structure was normal. There was normal leaflet separation. Doppler: The transmitral velocity was within the normal range. There was no evidence for stenosis. There was trivial regurgitation. Left atrium: Size was normal. Right ventricle: The size was normal. Systolic function was normal. Wall thickness was normal. Doppler: The tricuspid jet envelope definition was inadequate for estimation of RV systolic pressure. There are no indirect findings (abnormal RV volume or geometry, altered pulmonary flow velocity profile, or leftward septal displacement) which would suggest moderate or severe pulmonary hypertension. Pulmonic valve: Not well visualized. Doppler: There was no regurgitation. Pulmonary artery: The size was normal. Doppler: The tricuspid jet envelope definition was inadequate for estimation of RV systolic pressure. There are no indirect findings (abnormal RV volume or geometry, altered pulmonary flow velocity profile, or leftward septal displacement) which would suggest moderate or severe pulmonary hypertension. Tricuspid valve: The valve structure was normal. There was normal leaflet separation. Doppler: The transtricuspid velocity was within the normal range. There was no evidence for tricuspid stenosis. There was no regurgitation. Right atrium: Size was normal. Systemic veins: IVC: The inferior vena cava was not well visualized. Pericardium: The pericardium was normal in appearance. System measurement tables 2D mode LA Dimension (2D): 28 mm LA Dimension; Mean (2D): 28 mm LVIDd (2D): 45.1 mm LVIDs (2D): 25.5 mm LVPWd (2D): 7.5 mm Unspecified Scan Mode LVOT Diam: 20 mm LVOT Peak Grad; Mean: 4 mm[Hg] LVOT Vmax: 1020 mm/s MV E/A: 1.7 Prepared and signed by Dontrell Clifford MD Signed 09-Mar-2019 17:13:56 Procedure Note Dontrell Clifford MD - 03/16/[address] [address] Transthoracic Echocardiogram 2D, M-mode, Doppler, and Color Doppler Patient: MARNIE MURPHY MR number: [id number] Height: 61 in Weight: 184.6 lb BSA: 1.83 m?? Study date: 09-Mar-2019 : 1995 Age: 23 years Gender: Female Race: Black Platinum Smith: Veronika Valladares RDCS Referring Physician: Nate Nelson MD Reading Physician: Dontrell Clifford MD Summary: - Clinical question: - Chest pain, SVT - Left ventricle: - Systolic function was normal. Ejection fraction was estimated to be 75 %. - There were no regional wall motion abnormalities. - Wall thickness was normal. Indications: Chest pain, SVT Procedure: The procedure was performed in the echo lab. This was a routine study. The transthoracic approach was used. The study included complete 2D imaging, M-mode, complete spectral Doppler, and color Doppler. Systolic blood pressure was 117 mmHg. Diastolic blood pressure was 85 mmHg. Left ventricle: Size was normal. Systolic function was normal. Ejection fraction was estimated to be 75 %. There were no regional wall motion abnormalities. Wall thickness was normal. Doppler: Left ventricular diastolic function parameters were normal. Aortic valve: The valve was trileaflet. Leaflets exhibited normal thickness and normal cuspal separation. Doppler: There was no stenosis. There was no regurgitation. Aorta: The root exhibited normal size. Mitral valve: Valve structure was normal. There was normal leaflet separation. Doppler: The transmitral velocity was within the normal range. There was no evidence for stenosis. There was trivial regurgitation. Left atrium: Size was normal. Right ventricle: The size was normal. Systolic function was normal. Wall thickness was normal. Doppler: The tricuspid jet envelope definition was inadequate for estimation of RV systolic pressure. There are no indirect findings (abnormal RV volume or geometry, altered pulmonary flow velocity profile, or leftward septal displacement) which would suggest moderate or severe pulmonary hypertension. Pulmonic valve: Not well visualized. Doppler: There was no regurgitation. Pulmonary artery: The size was normal. Doppler: The tricuspid jet envelope definition was inadequate for estimation of RV systolic pressure. There are no indirect findings (abnormal RV volume or geometry, altered pulmonary flow velocity profile, or leftward septal displacement) which would suggest moderate or severe pulmonary hypertension. Tricuspid valve: The valve structure was normal. There was normal leaflet separation. Doppler: The transtricuspid velocity was within the normal range. There was no evidence for tricuspid stenosis. There was no regurgitation. Right atrium: Size was normal. Systemic veins: IVC: The inferior vena cava was not well visualized. Pericardium: The pericardium was normal in appearance. System measurement tables 2D mode LA Dimension (2D): 28 mm LA Dimension; Mean (2D): 28 mm LVIDd (2D): 45.1 mm LVIDs (2D): 25.5 mm LVPWd (2D): 7.5 mm Unspecified Scan Mode LVOT Diam: 20 mm LVOT Peak Grad; Mean: 4 mm[Hg] LVOT Vmax: 1020 mm/s MV E/A: 1.7 Prepared and signed by Dontrell Clifford MD Signed 09-Mar-2019 17:13:56 Nate Nelson MD ECHO ORDERABLES [facility] [address] [place] [id number] * (ABNORMAL) TROPONIN I (03/09/2019 3:42 AM CDT) Only the most recent of4 resultswithin the time period is included. Troponin I 0.068(HH) <0.038 ng/mL 03/09/2019 4:25 AM CDT [facility] Blood BLOOD SPECIMEN / Unknown Lab Venipuncture / Unknown 03/09/2019 3:42 AM CDT 03/09/2019 3:46 AM CDT Narrative [facility] - 03/09/2019 4:25 AM CDT Note: Diagnosis of myocardial infarction requires symptoms of ischemia or EKG changes of ischemia and Troponin I >99th of normal (0.038 ng/mL). Troponin should be drawn on initial assessment and 3-6 hours later as clinically indicated. Any condition resulting in myocardial cell damage can increase cardiac troponin levels. In addition to myocardial infarction, these include but are not limited to congestive heart failure (CHF), arrhythmia, myocarditis, and non-cardiac related causes such as pulmonary embolism, renal failure and sepsis. Attention Clinician - Reference Range has changed Danish Sullivan DO LAB - CHEMISTRY OR DERABLES Performing Organization Address [facility] de Phone Number [facility] [address] [place] [address] * MAGNESIUM BLOOD (03/09/2019 3:42 AM CDT) Only the most recent of2 resultswithin the time period is included. Pathologist [facility] [place] Magnesium 2.2 1.6 - 2.6 mg/dL 03/09/2019 4:14 AM CDT [facility] Blood BLOOD SPECIMEN / Unknown Lab Venipuncture / Unknown 03/09/2019 3:42 AM CDT 03/09/2019 3:46 AM CDT Nate Nelson MD LAB - CHEMISTRY SANGITA ARAIZA Performing Organization Address [facility] Co de Phone Number [facility] [address] [place] [phone] * ED CRITICAL CARE (03/09/2019 1:46 AM CDT) Narrative Danish Sullivan, DO - 03/09/2019 1:46 AM CDT Danish Sullivan, DO ? 03/09/2019 ??1:46 AM Critical Care Performed by: DANISH SULLIVAN Authorized by: DANISH SULLIVAN Critical care provider statement: ??Critical care time (minutes): ??42 ??Critical care time was exclusive of: ??Separately billable procedures and treating other patients ??Critical care was necessary to treat or prevent imminent or life-threatening deterioration of the following conditions: SVT. ??Critical care was time spent personally by me on the following activities: ??Development of treatment plan with patient or surrogate, evaluation of patient's response to treatment, examination of patient, obtaining history from patient or surrogate, ordering and performing treatments and interventions, ordering and review of radiographic studies, ordering and review of laboratory studies, pulse oximetry, re-evaluation of patient's condition, review of old charts and discussions with consultants Danish Sullivan DO PROCEDURE/MINOR HERRERA RGICAL ORDERABLES * HCG URINE QUAL POCT NOTIFICATION (03/09/2019 12:36 AM CDT) Comment Notification Label Only - See Separate Report 03/09/2019 2:00 AM CDT [facility] Urine URINE / Unknown 03/09/2019 1 2:36 AM CDT 03/09/2019 12:36 AM CDT Danish Sullivan DO LAB - URINALYSIS O RDERABLES [facility] [address] [place] [address] * RENAL FUNCTION PANEL (03/09/2019 12:09 AM CDT) Glucose 98 74 - 106 mg/dL 03/09/2019 12:46 AM CDT [facility] Sodium 138 136 - 145 mmol/L 03/09/2019 12:46 AM CDT [facility] Potassium 4.1 3.5 - 5.1 mmol/L 03/09/2019 12:46 AM CDT [facility] Chloride 105 98 - 107 mmol/L 03/09/2019 12:46 AM CDT [facility] CO2 25 23 - 31 mmol/L 03/09/2019 12:46 AM CDT [facility] Calcium 9.5 8.4 - 10.2 mg/dL 03/09/2019 12:46 AM CDT [facility] Anion Gap 8 8 - 16 mmol/L 03/09/2019 12:46 AM CDT [facility] BUN 7 7 - 18.7 mg/dL 03/09/2019 12:46 AM CDT [facility] Creatinine 0.68 0.55 - 1.02 mg/dL 03/09/2019 12:46 AM CDT [facility] Albumin 3.9 3.5 - 5.2 gm/dL 03/09/2019 12:46 AM CDT [facility] Phosphorus 3.3 2.3 - 4.7 mg/dL 03/09/2019 12:46 AM CDT [facility] eGFR by MDRD >60 >60 mL/min/1.7 3m2 03/09/2019 12:46 AM CDT [facility] eGFR by MDRD >60 >60 mL/min/1.7 3m2 03/09/2019 12:46 AM CDT [facility] Blood BLOOD SPECIMEN / Unknown Lab Venipuncture / Unknown 03/09/2019 12:09 AM CDT 03/09/2019 12:12 AM CDT [facility] - 03/09/2019 12:46 AM CDT Attention clinician: BUN Reference Range has changed. Nate Nelson MD [facility] Organization Address City/State/ZIP Co de Phone Number [facility] [address] [place] [address] * TSH (03/09/2019 12:09 AM CDT) Only the most recent of2 resultswithin the time period is included. TSH 0.6880 0.358 - 3.74 uIU/mL 03/09/2019 1:01 AM CDT [facility] Blood BLOOD SPECIMEN / Unknown Lab Venipuncture / Unknown 03/09/2019 12:09 AM CDT 03/09/2019 12:12 AM CDT Nate Nelson MD LAB - CHEMISTRY SANGITA ARAIZA [facility] Organization Address City/State/ZIP Co de Phone Number [facility] [address] [place] [address] * XR CHEST PA AND LATERAL (03/08/2019 10:31 PM CDT) Only the most recent of2 resultswithin the time period is included. Anatomical Region Laterality Modality Chest Radiographic Karen ging 03/09/2019 9:17 AM CDT Impressions 03/09/2019 9:19 AM CDT Normal. Reading Radiologist: Adal Darnell MD on 03/09/2019 at 9:19 AM Narrative 03/09/2019 9:19 AM CDT Chest, 2 views DATE: 03/08/2019 INDICATION: Shortness of breath, chest and shoulder pain, dizziness FINDINGS: The lungs are clear and free of effusion. The heart, mediastinum and bony thorax are normal. ??No change since 03/24/2018. Procedure Note Adal Darnell MD - 03/09/2019 Chest, 2 views DATE: 03/08/2019 INDICATION: Shortness of breath, chest and shoulder pain, dizziness FINDINGS: The lungs are clear and free of effusion. The heart, mediastinum and bony thorax are normal. No change since 03/24/2018. IMPRESSION Normal. Reading Radiologist: Adal Darnell MD on 03/09/2019 at 9:19 AM Danish Sullivan DO DIAGNOSTIC IMAGING ORDERABLES * CULTURE URINE (03/24/2018 1:01 PM CDT) Only the most recent of7 resultswithin the time period is included. Culture Urine 10,000-50,000 CFU/mL urogenital anjelica CHELA 03/25/2018 3:29 PM CDT [facility] Urine URINE SPECIMEN OBTAINED BY CLEAN CATCH PROCEDURE / Unknown Collection / Unknown 03/24/2018 1:01 PM CDT 03/24/2018 1:11 PM CDT Venice Hernández MD LAB - MICROBIOLOGY O RDERABLES [facility] [address] [place] [phone] * XR CHEST 1VW PORTABLE (03/24/2018 11:58 AM CDT) Anatomical Region Laterality Modality Chest Radiographic Karen ging 03/24/2018 12:0 3 PM CDT Impressions 03/24/2018 12:03 PM CDT No acute pulmonary disease Reading Radiologist: Efren Rosas MD on 03/24/2018 at 12:03 PM Narrative 03/24/2018 12:03 PM CDT Chest AP portable INDICATION: Shortness of breath and heart palpitations FINDINGS: Frontal view of the chest compared to January 26, 2017 shows no consolidation, pleural effusion or pneumothorax. The heart size is normal. Procedure Note Efren Rosas MD - 03/24/2018 Chest AP portable INDICATION: Shortness of breath and heart palpitations FINDINGS: Frontal view of the chest compared to January 26, 2017 shows no consolidation, pleural effusion or pneumothorax. The heart size is normal. IMPRESSION No acute pulmonary disease Reading Radiologist: Efren Rosas MD on 03/24/2018 at 12:03 PM Venice Hernández MD DIAGNOSTIC IMAGING O RDERABLES * HCG BLOOD QUALITATIVE (03/24/2018 11:38 AM CDT) HCG Qual Serum Negative Negative 03/24/2018 11:59 AM CDT [facility] Blood BLOOD SPECIMEN / Unknown Venipuncture / Unknown 03/24/2018 11:38 AM CDT 03/24/2018 11:38 AM CDT Venice Hernández MD LAB - CHEMISTRY SANGITA ARAIZA [facility] [address] [place] [address] * TSH REFLEX FREE T4 (03/24/2018 11:35 AM CDT) TSH 2.75 0.358 - 3.740 ulU/mL 03/24/2018 12:08 PM CDT [facility] Blood BLOOD SPECIMEN / Unknown Venipuncture / Unknown 03/24/2018 11:35 AM CDT 03/24/2018 11:37 AM CDT Venice Hernández MD LAB - CHEMISTRY SANGITA ARAIZA [facility] [address] [place] [address] * HIV-1 HIV-2 ANTIBODY + HIV P24 AG PANEL (08/06/2017 4:02 PM ETCHER ELECTROLYTIC) Only the most recent of2 resultswithin the time period is included. Pathologist [facility] [place] HIV1/2 Ab + P24 Ag Non Reactive Non Reactive 08/06/2017 11:20 PM ETCHER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 of the molecular genetics of this condition. MUTATIONS ANALYZED: G85E ?V520F ?Y1825H ? 2183AA to G R117H ? G542X ?X5726Y ? 2184delA R334W ? S549N ?394delTT ? 2789+5G to A R347H ? S549R ?621+1G to T ?3120+1G to A R347P ? G551D ?711+1G to T ?3659delC A455E ? R553X ?1078delT ? 3849+10kbC to T ApcqxV273 ?? R560T ?1717-1G to A ?? 3876delA SomizL591 ?? C2234V ?? 1898+1G to A ?? 3905insT METHODS/LIMITATIONS: DNA is isolated from the sample and tested for the 32 CF mutations on the [place] Array Platform ([employer]). Regions of the CFTR gene are amplified enzymatically and subjected to a solution-phase multiplex allele-specific primer extension with subsequent hybridization to a bead array and fluorescence detection. ??Polymorphisms F508C, I506V and I507V are included in this panel to rule out false positive ceytlW606 homozygotes. ??Reflex testing of 5T is included in the panel for R117H interpretation. False positive or negative results may occur for reasons that include genetic variants, blood transfusions, bone marrow transplantation, erroneous representation of family relationships or contamination of a sample with maternal cells. REFERENCES: 1. Updates on Carrier Screening for Cystic Fibrosis. (2011) ?? Am J Ob Gynecol 117(4):3170-9634 2. Errol, et al. (2004) Shanthi Med 6:387-91 3. Chalo, et al. (2002) Shanthi Med 4:379-391 4. Preconception and carrier screening for cystic ?? fibrosis: (2001)ACOG.ACMG publication Results Released By: Vasile Pedersen, Ph.D., Pattern Vault Clerk Released By: Vasile Pedersen, Ph.D., Director Comment Comment 09/15/2016 1:08 PM [facility] ([facility]) Comment: The assay provides information intended to be used for carrier screening in adults of reproductive age, as an aid in screening, and as a confirmatory test for another medically established diagnosis in newborns and children. The test is not indicated for use in diagnostic testing, pre-implantation screening, or for any stand-alone diagnostic purposes without confirmation by another medically established diagnostic product or procedure. Blood BLOOD SPECIMEN / Unknown Venipuncture / Unknown 09/04/2016 11:20 AM ETCHER ELECTROLYTIC 09/04/2016 11:43 AM ETCHER ELECTROLYTIC Narrative [facility] ([facility]) - 09/15/2016 1:08 PM ETCHER ELECTROLYTIC Performed at: ??01 - [facility] [address] ??[id number] Logistics And Planning Manager: Adeola Granados MD, Phone: ??[phone] Ignacia Roca MD LAB - HEMATOLOGY ORDERABLES [facility] ([facility]) [address] [place] [address] * LAB RESULTS ORDER (08/03/2013 3:05 AM ETCHER ELECTROLYTIC) Narrative 08/03/2013 3:05 AM ETCHER ELECTROLYTIC Ordered by an unspecified provider. Transcriptions Document, Scanned - 08/03/2013 3:05 AM CST Scanned Document LAB - THERAPEUTIC DR CARTAGENA MONITORING ORDERABLES * HCG URINE QUALITATIVE - POCT (IP) BEAKER (12/04/2012 4:24 PM CDT) HCG Qual Urine Negative Negative [facility] QC Verified Yes Yes [facility] PO CT TESTING Urine specimen (specimen) URINE / Unknown 12/04/2012 4:24 PM CDT Emmy BRANDT LAB - POINT OF CAR E ORDERABLES [facility] [address] [facility] [address] * (ABNORMAL) URINALYSIS MICROSCOPIC ONLY (12/04/2012 4:19 PM CDT) RBC UA >100(A) 0-2, 2-5 # /hpf 12/04/2012 4:51 PM CDT [facility] WBC UA 5-10(A) 0-2, 2-5 # /hpf 12/04/2012 4:51 PM CDT [facility] Bacteria UA Trace None Seen, Trace 12/04/2012 4:51 PM CDT [facility] Epithelial Cell UA 2-5 0-2, 2-5 12/04/2012 4:51 PM CDT [facility] Mucus UA 1+ (none) 12/04/2012 4:51 PM CDT [facility] Urine specimen (specimen) URINE SPECIMEN OBTAINED BY CLEAN CATCH PROCEDURE / Unknown 12/04/2012 4:19 PM CDT 12/04/2012 4:28 PM CDT Emmy Mccoy POLISHING MACHINE TENDER-MASCARA MOLDER LAB - URINALYSIS O RDERABLES Performing Organization Address City/State/[facility] Co de Phone Number [facility] [address] [place] [address] Care Teams Container Maker Relationship Specialty Start Date End Date PcpCarolina PCP - General 04/16/23 Andres Angela MD Psychiatry 12/16/18 Andres Angela MD Psychiatry 11/16/19
--- OUTSIDE RECORDS SUMMARY | 2024-09-18 05:29 | XMS_ITS | Encounter Summary ---
Author Organization [facility] Address [facility] [facility] [place] [address] Care Team Providers Care Client Advisor Name Role Phone Brian Velarde DO Primary Care Provider [phone] Andres Angela MD Unavailable [phone] Brian Velarde DO Unavailable [phone] Andres Angela MD Unavailable [phone] Reason for Visit * Reason Onset Date Comments Medication Prior Auth Request 11/21/2019 Encounter Details Date Type Department Care Team (Late st Contact Info) Description 11/21/2019 Telephone [facility] - Family Medicine [address] [place] [address] Brian Velarde, DO [address] [place] [id number] Medication Prior Auth Request Social History Tobacco [...] Telephone Encounter - Yamilex Kaur - 11/21/2019 3:51 PM CST Received prior authorization request for Clonazepam 2 mg from the pharmacy. Attempted to do the request on CoverMyMeds however it rejected stating that the medication is covered and no prior authorization is needed. [facility] at [facility] verified that the medication is covered and that no prior authorization is needed. States that the request is a refill too soon. ITORY MANAGER documented in this encounter Plan of Treatment Upcoming Encounters Date Type Department Care Team (Late st Contact Info) Description 09/19/2024 8:15 AM TERRITORY MANAGER Hospital Encounter [facility] Maternal & Care [address] [place], [place] [id number] documented as of this encounter Visit Diagnoses Not on filedocumented in this encounter Care Teams Client Advisor Relationship Specialty Start Date End Date Brian Velarde DO PCP - General Family Medicine 11/28/18 04/15/23 Brian Velarde DO [address] [place] [address] PCP - Attributed-[facility] Commercial 07/21/19 03/07/20 Andres Angela MD Psychiatry 12/16/18 Andres Angela MD Psychiatry 11/16/19 documented as of this encounter
--- OUTSIDE RECORDS SUMMARY | 2024-09-18 05:29 | XMS_ITS | Encounter Summary ---
Author Organization [facility] Address [address] [facility] [place] [address] Care Team Providers Care Screen Printing Supervisor Name Role Phone Brian Velarde DO Primary Care Provider [phone] Andres Angela MD Unavailable [phone] Brian Velarde DO Unavailable [phone] Andres Angela MD Unavailable [phone] Encounter Details Date Type Department Care Team (Latest Contact Info) Description 01/11/2020 Travel Social History Tobacco Use Types Packs/Day [...] st Contact Info) Description 09/19/2024 8:15 AM BAR ASSISTANT Hospital Encounter [facility] Maternal & Care [address] [place], [place] [phone] documented as of this encounter Visit Diagnoses Not on filedocumented in this encounter Care Teams Screen Printing Supervisor Relationship Specialty Start Date End Date Brian Velarde DO PCP - General Family Medicine 11/28/18 04/15/23 Brian Velarde DO [address] [place] [address] PCP - [facility] Commercial 07/21/19 03/07/20 Andres Angela MD Psychiatry 12/16/18 Andres Angela MD Psychiatry 11/16/19 documented as of this encounter
--- OUTSIDE RECORDS SUMMARY | 2024-09-18 05:29 | XMS_ITS | Encounter Summary ---
Author Organization [facility] Address [address] [place] [address] Care Team Providers Care Milk Pickup Driver Name Role Phone Brian Velarde DO Primary Care Provider [phone] Andres Angela MD Unavailable [phone] Brian Velarde DO Unavailable [phone] Reason for Visit * Reason Onset Date Comments Medication Prior Auth Request 08/16/2019 Encounter Details Date Type Department Care Team (Late st Contact Info) Description 08/16/2019 Telephone [facility] - Family Medicine [address] [place] [address] Brian Velarde, DO [address] [facility] [place] [phone] Medication Prior Auth Request Social History Tobacco [...] * Telephone Encounter - Yamilex Kaur - 08/16/2019 3:11 PM CST Prior authorization request for Aripiprazole 5 mg has been approved and is valid until 08/16/20 [id number]. Left detailed message for pharmacy of same. NDITIONING ASSOCIATE documented in this encounter Plan of Treatment Upcoming Encounters Date Type Department Care Team (Late st Contact Info) Description 09/19/2024 8:15 AM RECONDITIONING ASSOCIATE Hospital Encounter [facility] [address] [place], [place] [phone] documented as of this encounter Visit Diagnoses Not on filedocumented in this encounter Care Teams Milk Pickup Driver Relationship Specialty Start Date End Date Brian Velarde DO PCP - General Family Medicine 11/28/18 04/15/23 Brian Velarde DO [address] [place] [facility] [place] [facility] [place] [phone] PCP - Attributed-[facility] Commercial 07/21/19 03/07/20 Andres Angela MD Psychiatry 12/16/18 documented as of this encounter
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
--- OUTSIDE RECORDS SUMMARY | 2024-09-18 05:29 | XMS_ITS | Encounter Summary ---
Author Organization [facility] Address [address] [facility] [place] [place] [address] Care Team Providers Care Turbine Blade Assembler Name Role Phone Brian Velarde DO Primary Care Provider [phone] Andres Angela MD Unavailable [phone] EzequielBrian tapia DO Unavailable [phone] Andres Angela MD Unavailable [phone] Encounter Details Date Type Department Care Team (Latest Contact Info) Description 12/06/2019 Travel Social History Tobacco Use Types Packs/Day [...] st Contact Info) Description 09/19/2024 8:15 AM ACUTE COORDINATOR Hospital Encounter [facility] Maternal & Care [facility] [place] [address] documented as of this encounter Visit Diagnoses Not on filedocumented in this encounter Care Teams Turbine Blade Assembler Relationship Specialty Start Date End Date Brian Velarde DO PCP - General Family Medicine 11/28/18 04/15/23 Brian Velarde DO [address] [place] [phone] PCP - Attributed-[facility] Commercial 07/21/19 03/07/20 Andres Angela MD Psychiatry 12/16/18 Andres Angela MD Psychiatry 11/16/19 documented as of this encounter
--- OUTSIDE RECORDS SUMMARY | 2024-09-18 05:29 | XMS_ITS | Encounter Summary ---
Author Organization [facility] Address [address] [place] [address] Care Team Providers Care Networking Engineer Name Role Phone Brian Velarde DO Primary Care Provider [phone] Andres Angela MD Unavailable [phone] Brian Velarde DO Unavailable [phone] Andres Angela MD Unavailable [phone] Encounter Details Date Type Department Care Team (Latest Contact Info) Description 01/03/2020 Travel Social History Tobacco Use Types Packs/Day [...] have Coronavirus / COVID-19? No / Unsure 01/03/2020 9:59 AM CDT documented as of this encounter [...] st Contact Info) Description 09/19/2024 8:15 AM SENIOR ORACLE DATABASE DEVELOPER Hospital Encounter [facility] Maternal & Care [address] [place], [place] [phone] documented as of this encounter Visit Diagnoses Not on filedocumented in this encounter Care Teams Networking Engineer Relationship Specialty Start Date End Date Brian Velarde DO PCP - General Family Medicine 11/28/18 04/15/23 Brian Velarde DO [address] [place] [address] PCP - [facility] Commercial 07/21/19 03/07/20 Andres Angela MD Psychiatry 12/16/18 Andres Angela MD Psychiatry 11/16/19 documented as of this encounter
--- OUTSIDE RECORDS SUMMARY | 2024-09-18 05:29 | XMS_ITS | Encounter Summary ---
Author Organization [facility] Address [facility] [place] [address] Care Team Providers Care Health Care Assistant Name Role Phone Brian Velarde DO Primary Care Provider [phone] Andres Angela MD Unavailable [phone] Brian Velarde DO Unavailable [phone] Andres Angela MD Unavailable [phone] Reason for Visit * Reason Onset Date Comments MEDICATION REFILL 07/10/2019 Encounter Details Date Type Department Care Team (Late st Contact Info) Description 07/10/2019 Refill [facility] - Family Medicine [address] [place] [address] Brian Velarde, DO [address] [place] [phone] MEDICATION REFILL Social History Tobacco Use Types [...] encounter Miscellaneous Notes * Telephone Encounter - Mookie Vences - 07/10/2019 2:49 PM CDT Marnie Jones is in need of Her Requested Prescriptions Pending Prescriptions Disp Refills ??? clonazePAM (KLONOPIN) 2 MG tablet 90 tablet 0 Sig: Take 1 tablet by mouth 3 times daily as needed Take 1 tab PO BID PRN anxiety ??? dicyclomine (BENTYL) 10 MG capsule 120 capsule 1 Sig: Take 1 capsule by mouth 4 times daily ??? gabapentin (NEURONTIN) 300 MG capsule 30 capsule 0 Sig: Take 1 capsule by mouth 3 times daily Take 1 po QHS for 3-5 days, 1 PO BID for 3-5 days, then 1 PO TID thereafter Person calling for the refill: self Last office visit 05/10/19 Next Appointment scheduled: Visit date not found Last Refill for this medication 05/30/19 Does patient have any new allergies since last office visit? No Was the pharmacy verified? Yes If this is a controlled substance was the Last 4 of SSN verified? YES (If unable to verify last 4 of SSN transfer to the clinic for further review) documented in this encounter Plan of Treatment Upcoming Encounters Date Type Department Care Team (Late st Contact Info) Description 09/19/2024 8:15 AM [facility] Hospital Encounter [facility] Maternal & Care [address] [place], [place] [phone] documented as of this encounter Visit Diagnoses Not on filedocumented in this encounter Care Teams Health Care Assistant Relationship Specialty Start Date End Date Brian Velarde DO PCP - General Family Medicine 11/28/18 04/15/23 Brian Velarde DO [address] [facility] [place] [phone] PCP - Attributed-[facility] Commercial 07/21/19 03/07/20 Andres Angela MD Psychiatry 12/16/18 Andres Angela MD Psychiatry 11/16/19 documented as of this encounter
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
--- OUTSIDE RECORDS SUMMARY | 2024-09-18 05:29 | XMS_ITS | Encounter Summary ---
Author Organization [facility] Address [address] [place] [address] Care Team Providers Care Chief Controller Name Role Phone Brian Velarde DO Primary Care Provider [phone] Andres Angela MD Unavailable [phone] Brian Velarde DO Unavailable [phone] Andres Angela MD Unavailable [phone] Encounter Details Date Type Department Care Team (Latest Contact Info) Description 01/09/2020 Travel Social History Tobacco Use Types Packs/Day [...] have Coronavirus / COVID-19? No / Unsure 01/09/2020 11:08 AM CDT documented as of this encounter [...] st Contact Info) Description 09/19/2024 8:15 AM SPEECH THERAPY ASSISTANT Hospital Encounter [facility] Maternal & Care [address] [place], [place] [id number] documented as of this encounter Visit Diagnoses Not on filedocumented in this encounter Care Teams Chief Controller Relationship Specialty Start Date End Date Brian Velarde DO PCP - General Family Medicine 11/28/18 04/15/23 Brian Velarde DO [address] [place] [address] PCP - [facility] Commercial 07/21/19 03/07/20 Andres Angela MD Psychiatry 12/16/18 Andres Angela MD Psychiatry 11/16/19 documented as of this encounter
--- OUTSIDE RECORDS SUMMARY | 2024-09-18 05:29 | XMS_ITS | Encounter Summary ---
Author Organization [facility] Address [address] [facility] [place] [address] Care Team Providers Care Police Officer Name Role Phone Andres Angela MD Unavailable [phone] Andres Angela MD Unavailable [phone] Pcp[place]ina Primary Care Provider Unav ailable Reason for Referral * (Routine) - Open Specialty Diagnoses / Procedures Referred By Christina frazier Referred To Contact Diagnoses SGA (small for gestational age) (HCC) Encounter for anatomic survey (HCC) Procedures SONOGRAM - COMPLETE Yoselin Leslie MD [address] [place] [address] Referral ID Status Reason Start Date Expiration Date Visits Re quested Visits Authorized [id number] Open 08/29/2024 08/29/2025 3 3 S PERSON Encounter Details Date Type Department Care Team (Latest Contact Info) Description 08/30/2024 10:30 AM PARTS PERSON - 08/30/2024 10:41 AM [facility] Hospital Encounter [facility] Maternal & Care [address] [place] [address] Roxanne Samaniego MD [address] [facility] [address] [place] [address] Discharge Disposition: Home or Self Care Social [...] st Contact Info) Description 09/19/2024 8:15 AM PARTS PERSON Hospital Encounter [facility] Maternal & Care [address] [place], [place] [phone] documented as of this encounter Procedures Procedure Name Priority Date/Time Associated Diagnosis Comments SONOGRAM - COMPLETE Routine 08/30/2024 1 0:39 AM PARTS PERSON SGA (small for gestational age) ([facility]) Encounter for anatomic survey ([facility]) documented in this encounter Results * SONOGRAM - COMPLETE (08/30/2024 10:39 AM PARTS PERSON) Linked Results Indication ======== SGA and Mildly Elevated UA Doppler on Outside Scan Ectopic x2 History ====== OB History ? 6. Para 1 ? [id number] Lab Tests Test ? Date ? Result [...] lb 5 ??oz EFW by ? [facility] ([id number]) Head / Face / Neck Biometry: Cephalic [...] adequately visualized: Heart / Thorax RVOT view. 4-effjiz-kjwdtpe view. Aortic arch view. Ductal arch view. [...] weeks, with NST if indicated. See separate MFM visit note. Coding ====== Procedures ? [id number]: US Preg Uterus Detailed ? [id number]: Umbilical Doppler [facility] [place] book PACS Anatomical Region Laterality Modality Other 08/30/2024 10:3 9 AM PARTS PERSON R Reed Leslie MD [facility] ORDERABLES documented in this encounter Visit Diagnoses Diagnosis Encounter for maternal care for suspected poor growth in roman in third trimester ([facility])- Primary SGA (small for gestational age) ([facility]) Cblkh-rac-ptiwb without mention of malnutrition, unspecified (weight) Encounter for anatomic survey ([facility]) Encounter for anatomic survey 28 weeks gestation of ([facility]) state, incidental Encounter for maternal care for suspected poor growth in roman in third trimester ([facility])- Primary Aversion to food: limiting protein intake Feeding difficulties and mismanagement Abnormal ultrasound: dopplers elevated S/d ratio Abnormal findings on screening High-risk in third trimester ([facility]) Previous baby with growth restriction Encounter for screening ([facility]) documented in this encounter Care Teams Police Officer Relationship Specialty Start Date End Date Pcp, Carolina Mann PCP - General 04/16/23 Andres Angela MD Psychiatry 12/16/18 Andres Angela MD Psychiatry 11/16/19 documented as of this encounter
--- OUTSIDE RECORDS SUMMARY | 2024-09-18 05:29 | XMS_ITS | Encounter Summary ---
Author Organization [facility] Address [address] [place] [address] Care Team Providers Care Onyx Chip Terrazzo Worker Name Role Phone Brian Velarde DO Primary Care Provider [phone] Andres Angela MD Unavailable [phone] EzequielBrian tapia DO Unavailable [phone] Andres Angela MD Unavailable [phone] Encounter Details Date Type Department Care Team (Latest Contact Info) Description 11/29/2019 Travel Social History Tobacco Use Types Packs/Day [...] st Contact Info) Description 09/19/2024 8:15 AM SKETCH MAKER Hospital Encounter [facility] [place] [address] documented as of this encounter Visit Diagnoses Not on filedocumented in this encounter Care Teams Onyx Chip Terrazzo Worker Relationship Specialty Start Date End Date Brian Velarde DO PCP - General Family Medicine 11/28/18 04/15/23 Brian Velarde DO [address] [place] [phone] PCP - Attributed-[facility] Commercial 07/21/19 03/07/20 Andres Angela MD Psychiatry 12/16/18 Andres Angela MD Psychiatry 11/16/19 documented as of this encounter
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
--- OUTSIDE RECORDS SUMMARY | 2024-09-18 05:30 | XMS_ITS | Encounter Summary ---
Author Organization [facility] Address [address] [place] [address] Care Team Providers Care Supervisor Gear Repair Name Role Phone Unavailable Primary Care Provider Unavailabl e Reason for Visit * Reason Comments FAD NST Encounter Details Date Type Department Care Team (Latest Contact Info) Description 02/26/2017 1:00 PM CDT - 02/26/2017 1:01 PM CDT Hospital Encounter [facility] MATERNAL/ EVALUATION UNIT [address] [place] [address] Jessica Fajardo MD [address] [facility] [address] [place] [address] Discharge Disposition: Home or Self Care Social History Tobacco Use Types Packs/Day Years Used Date Smoking Tobacco: Former Cigarettes Q uit: 07/24/2016 Smokeless Tobacco: Never Comments:advised not to resu me Alcohol Use Standard Drinks/Week Comments No 0 [...] or have serious hearing difficult y? No 02/03/2017 Is person blind or have serious difficulty seein g? No 02/03/2017 Does person have serious dif ficulty walking/climbing stairs? No 02/03/2017 Does person have difficulty dressing/bathing? No 02/03/2017 Does person have difficulty doing errands alone? No 02/03/2017 Cognitive Status Response Date of Assessm ent Does person have difficulty concentrating/remembering/making decisions? No 02/03/2017 documented as of this encounter Medications at Time of Discharge Medication Sig Dispensed Refills Start Date End Date docusate sodium (COLACE) 100 MG capsule Take 1 Cap by mouth 2 times daily 60 Cap 2 03/12/2017 11/28/2018 docusate sodium (COLACE) 100 MG capsule Take 1 Cap by mouth once daily 60 Cap 1 02/17/2017 08/06/2017 famotidine (PEPCID) 20 MG tablet Take 1 Tab by mouth once daily as needed for Heartburn (Indigestion) 30 Tab 2 11/25/2016 11/28/2018 ferrous sulfate 325 (65 FE) MG tablet Take 1 Tab by mouth 2 times daily with morning and evening meal 60 Tab 2 03/12/2017 11/28/2018 fluconazole (DIFLUCAN) 150 MG tablet Take one tab po, if symptoms persist may take another tab on day 3. 2 Tab 02/24/2017 11/28/2018 ibuprofen (MOTRIN) 600 MG tablet Take 1 Tab by mouth every 6 hours as needed for Pain 60 Tab 2 03/12/2017 11/28/2018 Vit-Fe Fumarate-FA ( VITAMIN) 28-0.8 MG tablet Take 1 Tab by mouth once daily 30 Tab 5 02/17/2017 11/28/2018 documented as of this encounter Progress Notes * Chelsea Harmon RN - 02/26/2017 2:14 PM CDT Pt here for nst and ultrasound. Pt reports decreased FM since 02/24/17. Pt denies ctx/LOF/VB. NST strip reviewed by Dr Hall. BPP to follow. documented in this encounter Plan of Treatment Upcoming Encounters Date Type Department Care Team (Late st Contact Info) Description 09/19/2024 8:15 AM MANUFACTURING MACHINE OPERATOR Hospital Encounter [facility] Maternal & Care [address] [place] [phone] documented as of this encounter Visit Diagnoses Not on filedocumented in this encounter
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
--- OUTSIDE RECORDS SUMMARY | 2024-09-18 05:30 | XMS_ITS | Encounter Summary ---
Author Organization [facility] Address [address] [place] [address] Care Team Providers Care Pattern And Chain Maker Name Role Phone Unavailable Primary Care Provider Unavailabl e Reason for Visit * Reason Comments Establish Care Anxiety Pain Back Encounter Details Date Type Department Care Team (Late st Contact Info) Description 10/04/2017 1:20 PM COMMODITY BROKER Office Visit [facility] - [address] [phone] Madison Mathis, DO [address] [address] Low back pain, unspecified back pain laterality, unspecified chronicity, with sciatica presence unspecified (Primary Dx); Anxiety Social History Tobacco Use Types Packs/Day Years [...] Sign Reading Time Taken Comments Blood Pressure 123/78 10/04/2017 1:40 PM COMMODITY BROKER Pulse 94 10/04/2017 1:40 PM COMMODITY BROKER Temperature - - Respiratory Rate 16 10/04/2017 1:40 PM COMMODITY BROKER Oxygen Saturation 100% 10/04/2017 1:40 PM COMMODITY BROKER Inhaled Oxygen Concentration - - Weight 72.6 kg (160 lb) 10/04/2017 1:40 PM COMMODITY BROKER Height 154.9 cm (5' 1 ) 10/04/2017 1:40 PM COMMODITY BROKER Body Mass Index 30.23 10/04/2017 1:40 PM COMMODITY BROKER documented in this encounter Functional Status Functional [...] No 03/07/2017 documented as of this encounter Patient Instructions * Patient Instructions* Madison Mathis, DO - 10/04/2017 2:02 PM COMMODITY BROKER Images from the original note were not included. Acute Low Back Pain WHAT YOU NEED TO KNOW: Acute low back pain is sudden discomfort in your lower back area that lasts for up to 6 weeks. The discomfort makes it difficult to tolerate activity. DISCHARGE INSTRUCTIONS: Return to the emergency department if: ?? You have severe pain. ?? You have sudden stiffness and heaviness on both buttocks down to both legs. ?? You have numbness or weakness in one leg, or pain in both legs. ?? You have numbness in your genital area or across your lower back. ?? You cannot control your urine or bowel movements. Contact your healthcare provider if: ?? You have a fever. ?? You have pain at night or when you rest. ?? Your pain does not get better with treatment. ?? You have pain that worsens when you cough or sneeze. ?? You suddenly feel something pop or snap in your back. ?? You have questions or concerns about your condition or care. Medicines: You may need any of the following: ?? NSAIDs help decrease swelling and pain. This medicine is available with or without a doctor's order. NSAIDs can cause stomach bleeding or kidney problems in certain people. If you take blood thinner medicine, always ask your healthcare provider if NSAIDs are safe for you. Always read the medicine label and follow directions. ?? Acetaminophen decreases pain and fever. It is available without a doctor's order. Ask how much to take and how often to take it. Follow directions. Read the labels of all other medicines you are using to see if they also contain acetaminophen, or ask your doctor or pharmacist. Acetaminophen can cause liver damage if not taken correctly. Do not use more than 4 grams (4,000 milligrams) total of acetaminophen in one day. ?? Muscle relaxers decrease pain by relaxing the muscles in your lower spine. ?? Prescription pain medicine may be given. Ask your healthcare provider how to take this medicinesafely. Some prescription pain medicines contain acetaminophen. Do not take other medicines that contain acetaminophen without talking to your healthcare provider. Too much acetaminophen may cause liver damage. Prescription pain medicine may cause constipation. Ask your healthcare provider how to prevent or treat constipation. Self-care: ?? Stay active as much as you can without causing more pain. Bed rest could make your back pain worse. Start with some light exercises, such as walking. Avoid heavy lifting until your pain is gone. Ask for more information about the activities or exercises that are right for you. ?? Apply ice on your back for 15 to 20 minutes every hour or as directed. Use an ice pack, or put crushed ice in a plastic bag. Cover it with a towel before you apply it to your skin. Ice helps prevent tissue damage and decreases swelling and pain. ?? Apply heat on your back for 20 to 30 minutes every 2 hours for as many days as directed. Heat helps decrease pain and muscle spasms. Alternate heat and ice. Prevent acute low back pain: ?? Use proper body mechanics. ?? Bend at the hips and knees when you sheepskin pickler objects. Do not bend from the waist. Use your leg muscles as you lift the load. Do not use your back. Keep the object close to your chest as you lift it. Try not to twist or lift anything above your waist. ?? Change your position often when you stand for long periods of time. Rest one foot on a small boxor footrest, and then switch to the other foot often. ?? Try not to sit for long periods of time. When you do, sit in a straight- backed chair with your feet flat on the floor. Never reach, pull, or push while you are sitting. ?? Do exercises that strengthen your back muscles. Warm up before you exercise. Ask your healthcareprovider the best exercises for you. ?? Maintain a healthy weight. Ask your healthcare provider how much you should weigh. Ask him or her to help you create a weight loss plan if you are overweight. Follow up with your healthcare provider as directed: Return for a follow-up visit if you still havepain after 1 to 3 weeks of treatment. You may need to visit an orthopedist if your back pain lasts longer than 12 weeks. Write down your questions so you remember to ask them during your visits. ?? 2017 [employer] Information is for End User's use only and may not be sold, redistributed or otherwise used for commercial purposes. All illustrations and images included in CareNotes?? are the copyrighted property of [employer]. or [employer]. The above information is an hotel maid only. It is not intended as medical advice for individual conditions or treatments. Talk to your doctor, nurse or pharmacist before following any medical regimen to see if it is safe and effective for you. ODITY BROKER documented in this encounter Progress Notes * Madison Mathis DO - 10/04/2017 1:55 PM CST New Patient Visit HPI: Marnie Jones is a 21 y.o. female is here today to establish care. 1. LBP Started after epidural with delivery 6 mo ago. She discussed the issue with her OB but referred herto PCP. When lying down has shooting pain down the back into the leg She feels pain with squatting, bending down, raising hands up too high, and with turning to put beatris coat. OB gave her some medicine for pain- but can't recall what kind Not taking anything currently. It has become quite devastating to her daily life. 2. Anxiety depression Anxiety started during . It is bad and getting worse. Stays up all night, can't turn brainoff. Her sleeping is not good. She has a bad sleep pattern. doesn't wake up anymore but the pt still does. Can't concentrate at work. Feels sad sometimes. Depression feeling. Down/crying spells often. Feeling excessively worried. Review of Systems: Review of Systems Constitutional: Negative for chills and weight loss. HENT: Negative for congestion, ear discharge and nosebleeds. Eyes: Negative for double vision and photophobia. Respiratory: Negative for cough. Cardiovascular: Negative for palpitations and orthopnea. Gastrointestinal: Negative for abdominal pain, nausea and vomiting. Genitourinary: Negative for frequency and urgency. Musculoskeletal: Positive for back pain. Negative for myalgias and neck pain. Skin: Negative for rash. Neurological: Negative for tremors, sensory change and headaches. Psychiatric/Behavioral: Positive for depression. The patient is nervous/anxious. Past Medical History: Diagnosis Date ??? Chlamydia contact, treated 07/29/2013 reports repeat infection 2014 ??? History of asthma as a child ??? History of sexually transmitted disease Past Surgical History: Procedure Laterality Date ??? NEGATIVE SURGICAL HISTORY No family history on file. Social History Social History ??? Marital status: Single Spouse name: N/A ??? Number of children: N/A ??? Years of education: N/A Occupational History ??? Not on file. Social History Main Topics ??? Smoking status: Former Smoker Types: Cigarettes Quit date: 07/24/2016 ??? Smokeless tobacco: Never Used Comment: advised not to resume ??? Alcohol use No ??? Drug use: No ??? Sexual activity: Yes Partners: Male control/ protection: Injection Comment: Depo Other Topics Concern ??? Not on file Social History Narrative Current Medications: ??? metoclopramide (REGLAN) 10 MG tablet ??? ibuprofen (MOTRIN) 600 MG tablet ??? docusate sodium (COLACE) 100 MG capsule ??? ferrous sulfate 325 (65 FE) MG tablet ??? fluconazole (DIFLUCAN) 150 MG tablet ??? Vit-Fe Fumarate-FA ( VITAMIN) 28-0.8 MG tablet ??? famotidine (PEPCID) 20 MG tablet No Known Allergies Exam: BP 123/78 (BP SITE: RIGHT ARM, BP POSITION: SITTING, BP CUFF SIZE: Large Adult) Pulse 94 Resp 16 Ht1.549 m (5' 1 ) Wt 72.6 kg (160 lb) SpO2 100% BMI 30.23 kg/m2 Wt Readings from Last 3 Encounters: 10/04/17 72.6 kg (160 lb) 08/06/17 70.3 kg (155 lb) 08/09/17 65.8 kg (145 lb) Physical Exam Constitutional: She is oriented to person, place, and time and well-developed, well-nourished, and in no distress. HENT: Head: Normocephalic and atraumatic. Mouth/Throat: No oropharyngeal exudate. Eyes: Pupils are equal, round, and reactive to light. Neck: Normal range of motion. Cardiovascular: Normal rate and regular rhythm. Pulmonary/Chest: Effort normal. Abdominal: Soft. She exhibits no distension. There is no tenderness. Musculoskeletal: Back Exam: Location: midline low back, with tenderness to palpation of paraspinal muscles Radiation: to sacral area Straight leg test: unable to be performed due to pt inability to lie flat without pain Sensory defects: intact and equal sensation to lower extremities bilaterally Strength: 5/5 muscle strength to lower extremities b/l ROM: unable to try flexion, extension or side bending due to pain Neurological: She is alert and oriented to person, place, and time. No cranial nerve deficit. Skin: Skin is warm. Psychiatric: Affect normal. Data: No results found for this visit on 10/04/17. Assessment & Plan: (M54.5) Low back pain, unspecified back pain laterality, unspecified chronicity, with sciatica presence unspecified (primary encounter diagnosis) Plan: AMB REFERRAL TO PHYSICAL THERAPY, diclofenac sodium EC (VOLTAREN) 50 MG tablet, cyclobenzaprine (FLEXERIL) 5 MG tablet (F41.9) Anxiety Plan: AMB REFERRAL TO BEHAVIORAL HEALTH, escitalopram (LEXAPRO) 5 MG tablet Follow up in 4-6 weeks. If symptoms do not start to improve in 48 hours or if they worsen, patient has been instructed to call or make an appointment or go to ER if necessary. Madison Mathis DO 10/04/2017 1:09 PM ODITY BROKER * Maria Antonia Ledezma - 10/04/2017 1:44 PM CST Patient is here to establish primary care. Complaints: Back pain Depression (has six month old ) ODITY BROKER documented in this encounter Plan of Treatment Upcoming Encounters Date Type Department Care Team (Late st Contact Info) Description 09/19/2024 8:15 AM COMMODITY BROKER Hospital Encounter [facility] Maternal & [facility] [address] [place] [phone] documented as of this encounter Visit Diagnoses Diagnosis Low back pain, unspecified back pain laterality, unspecified chronicity, with sciatica presence unspecified- Primary Anxiety Anxiety state, unspecified Encounter for maternal care for suspected poor growth in roman in third trimester (HCC)- Primary Aversion to food: limiting protein intake Feeding difficulties and mismanagement Abnormal ultrasound: dopplers elevated S/d ratio Abnormal findings on screening High-risk in third trimester (HCC) Previous baby with growth restriction Encounter for screening ([facility]) documented in this encounter
--- OUTSIDE RECORDS SUMMARY | 2024-09-18 05:30 | XMS_ITS | Encounter Summary ---
Author Organization [facility] Address [address] [facility] [place] [address] Care Team Providers Care Tube Turner Name Role Phone Unavailable Primary Care Provider Unavailabl e Reason for Visit * Reason Onset Date Comments Scheduling 03/12/2017 Spoke with eri maradiaga regarding follow up appointment scheduled on 04/23/17 at 11:00 am Encounter Details Date Type Department Care Team (Late st Contact Info) Description 03/12/2017 Telephone [facility] MATERNAL/ EVALUATION UNIT [facility] [facility] [place] [address] ZachLarissa Scheduling (Spoke with patient regarding follow up appointment scheduled on 04/23/17 at 11:00 am) Social History Tobacco Use Types Packs/Day Years [...] No 03/07/2017 documented as of this encounter Miscellaneous Notes * Telephone Encounter - Larissa Serrano - 03/12/2017 8:46 AM CDT Spoke with patient regarding follow up appointment scheduled on 04/23/17 at 11:00 am documented in this encounter Plan of Treatment Upcoming Encounters Date Type Department Care Team (Late st Contact Info) Description 09/19/2024 8:15 AM CURB SUPERVISOR Hospital Encounter [facility] Maternal & Care [address] [place] [phone] documented as of this encounter Visit Diagnoses Not on filedocumented in this encounter
--- OUTSIDE RECORDS SUMMARY | 2024-09-18 05:30 | XMS_ITS | Encounter Summary ---
Author Organization [facility] Address [address] [facility] [place] [address] Care Team Providers Care Television Parts Tester Name Role Phone Brian Velarde DO Primary Care Provider [phone] Andres Angela MD Unavailable [phone] Reason for Visit * Reason Onset Date Comments Question 05/10/2019 Encounter Details Date Type Department Care Team (Late st Contact Info) Description 05/10/2019 Telephone [facility] Medical [facility] - Family Medicine [address] [place] [address] Brian Velarde, DO [address] [place] [address] Question Social History Tobacco Use [...] * Telephone Encounter - Danielle Cardoso - 05/15/2019 9:47 AM CDT Called pt, vm full. Will need to try again later. * Telephone Encounter - Brian Velarde DO - 05/15/2019 9:41 AM CDT An infection from BV would not cause such systemic symptoms. Its only going to cause local systems.If she thinks that's the case, she should have a pelvic exam done and subsequent testing to figure out whats going on. I would assume her feeling bad is from the accident, not the vaginal concern. * Telephone Encounter - Danielle Cardoso - 05/11/2019 9:30 AM CDT When it comes to the possible BV pt says it started out with just some strong vaginal odor and mildabdominal pain (no discharge) but since yesterday pt says her body has been aching really bad all over. Pt states she does not have a temperature but finds it hard to concentrate at work and is wondering if she should just go home? * Telephone Encounter - Brian Velarde DO - 05/11/2019 7:50 AM CDT I dont know what this means? What bacterial infection? Where? * Telephone Encounter - Ramona Hooper - 05/10/2019 3:09 PM CDT Patient says she believes after visiting with that she may need a test for bacteria infection. Patient wants to know if will put in an order for the test to the lab. documented in this encounter Plan of Treatment Upcoming Encounters Date Type Department Care Team (Late st Contact Info) Description 09/19/2024 8:15 AM ROADMASTER Hospital Encounter [facility] Maternal & Care [address] [place], [place] [phone] documented as of this encounter Visit Diagnoses Not on filedocumented in this encounter Care Teams Television Parts Tester Relationship Specialty Start Date End Date Brian Velarde DO PCP - General Family Medicine 11/28/18 04/15/23 Andres Angela MD Psychiatry 12/16/18 documented as of this encounter
--- OUTSIDE RECORDS SUMMARY | 2024-09-18 05:30 | XMS_ITS | Encounter Summary ---
Author Organization [facility] Address [address] [facility] [address] Care Team Providers Care Finish Grinder Name Role Phone Brian Velarde DO Primary Care Provider [phone] Andres Angela MD Unavailable [phone] Reason for Visit * Reason Onset Date Comments Pre Authorization 05/15/2019 Encounter Details Date Type Department Care Team (Late st Contact Info) Description 05/15/2019 Telephone [facility] - Family Medicine [address] [place] [address] Brian Velarde, DO [address] [place] [phone] Pre Authorization Social History Tobacco Use Types Packs/Day Years [...] encounter Miscellaneous Notes * Telephone Encounter - Vincenzo Carter - 05/15/2019 2:21 PM CDT Patient aware that precert is pending and that I'll let her know when auth has been received. Appt canceled for today. ----- Message from Adelita Manley sent at 05/15/2019 11:54 AM CDT ----- Regarding: Authorization is Pending- Dr. Velarde Authorization is Pending Patient Name: .Jamar Jones : ..1995 Exam ordered: CT THORACIC SPINE WO CONTRAST Ordering Physician: Dr. Velarde Phone number for Insurance: [phone] Case, Tracking number to use: [id number] Appt date: 05/15/2019 Reason exam is not approved: review Per [facility] Direct protocol we are now sending pending notifications two business days prior to a scheduled exam. The Financial Clearance team will continue to follow the authorization status up to the date of service and will provide an updated status the day before the scheduled exam. If you choose to contact the insurance company to provide additional clinical information, please reply with an updated authorization status. documented in this encounter Plan of Treatment Upcoming Encounters Date Type Department Care Team (Late st Contact Info) Description 09/19/2024 8:15 AM [facility] Hospital Encounter [facility] Maternal & Care [address] [place], [place] [phone] documented as of this encounter Visit Diagnoses Not on filedocumented in this encounter Care Teams Finish Grinder Relationship Specialty Start Date End Date Brian Velarde DO PCP - General Family Medicine 11/28/18 04/15/23 Andres Angela MD Psychiatry 12/16/18 documented as of this encounter
--- OUTSIDE RECORDS SUMMARY | 2024-09-18 05:30 | XMS_ITS | Encounter Summary ---
Author Organization [facility] Address [address] [facility] [place] [address] Care Team Providers Care Plug Cutter Name Role Phone Unavailable Primary Care Provider Unavailabl e Reason for Visit * Reason Onset Date Comments Results 08/16/2017 Encounter Details Date Type Department Care Team (Late Contact Info) Description 08/16/2017 Telephone [facility] MATERNAL/ EVALUATION UNIT [address] [facility] [place] [address] Carol Ann Jules, DO [address] [place] [phone] Results Social History Tobacco Use Types Packs/Day Years [...] No 03/07/2017 documented as of this encounter Plan of Treatment Upcoming Encounters Date Type Department Care Team (Late Contact Info) Description 09/19/2024 8:15 AM SAFE EXPERT Hospital Encounter [facility] Maternal & Care [address] [place] [phone] documented as of this encounter Visit Diagnoses Not on filedocumented in this encounter
--- OUTSIDE RECORDS SUMMARY | 2024-09-18 05:30 | XMS_ITS | Encounter Summary ---
Author Organization [facility] Address [facility] [place] [address] Care Team Providers Care Change Management Manager Name Role Phone Brian Velarde DO Primary Care Provider [phone] Andres Angela MD Unavailable [phone] Reason for Visit * Reason Onset Date Comments Forms 03/06/2019 FMLA Encounter Details Date Type Department Care Team (Late st Contact Info) Description 03/06/2019 Telephone [facility] Medical [facility] - Family Medicine [address] [place] [address] Brian Velarde, DO [address] [place] [phone] Forms (FMLA) Social History Tobacco Use Types Packs/Day Years Used Date Smoking Tobacco: Every Day Cigarettes 0.3 2 Started: 07/24/2014; Last attempted to quit: 07/24/2016 Smokeless Tobacco: Never Alcohol Use Standard Drinks/Week [...] * Telephone Encounter - Yamilex Sena - 03/10/2019 2:07 PM CDT Patient paid the $20 fee over the phone. Faxed FMLA form to . Patient is aware. * Telephone Encounter - Yamilex Sena - 03/09/2019 4:28 PM CDT Scanned FMLA form into the patient's chart and placed up front for pickle cutter. * Telephone Encounter - Yamilex Sena - 03/09/2019 3:22 PM CDT Spoke to Marnie and told her the FMLA form was completed. She states that the dates she gave me were incorrect. Claims that she missed work on 03/03/19 and not on 02/28/19. States that she will call me right back to pay the $20 fee. Updated the FMLA form to include the correct dates. Waiting for the patient to call back. * Telephone Encounter - Yamilex Sena - 03/09/2019 12:12 PM CDT Filled out FMLA form and placed in doctors pod to be signed. * Telephone Encounter - Yamilex Sena - 03/09/2019 12:10 PM CDT Spoke to patient and she states that she is currently at [place] because her heart rate was 236. States that she missed work on 02/23/19, 02/24/19, 02/27/19, and 02/28/19. * Telephone Encounter - Yamilex Sena - 03/06/2019 9:50 AM CDT Patient dropped off FMLA form on 03/03/19. States that this leave is for a reaction to a medication that she took and that she will have to call me back with the dates she missed work. documented in this encounter Plan of Treatment Upcoming Encounters Date Type Department Care Team (Late st Contact Info) Description 09/19/2024 8:15 AM [facility] Hospital Encounter [facility] Maternal & Care [address] [place], [place] [phone] documented as of this encounter Visit Diagnoses Not on filedocumented in this encounter Care Teams Change Management Manager Relationship Specialty Start Date End Date Brian Velarde DO PCP - General Family Medicine 11/28/18 04/15/23 Andres Angela MD Psychiatry 12/16/18 documented as of this encounter
--- OUTSIDE RECORDS SUMMARY | 2024-09-18 05:30 | XMS_ITS | Encounter Summary ---
Author Organization [facility] Address [facility] [place] [address] Care Team Providers Care Pulp Grinder And Blender Name Role Phone Brian Velarde DO Primary Care Provider [phone] Andres Angela MD Unavailable [phone] Reason for Visit * Reason Onset Date Comments MEDICATION REFILL 02/22/2019 Encounter Details Date Type Department Care Team (Late st Contact Info) Description 02/22/2019 Refill [facility] - Family Medicine [address] [place] [address] Brian Velarde, DO [address] [place] [phone] MEDICATION REFILL Social History Tobacco Use Types [...] * Telephone Encounter - Talat Rodriguez - 02/27/2019 11:20 AM CDT Pt notified 2 prescriptions sent to pharmacy. * Telephone Encounter - Ramona Hooper - 02/24/2019 11:59 AM CDT Patient called back says she is completely out of medication - due to not having her medications patient had a panic attack. Patient may have to go to ED - until then she would like a call back when medication is filled. Patient will also drop off [employer] paper work to office for [employer] to fill out when he is back in office next week. . * Telephone Encounter - Aure Mejia - 02/22/2019 3:07 PM CDT Marnie Jones is in need of Her Requested Prescriptions Pending Prescriptions Disp Refills ??? clonazePAM (KLONOPIN) 2 MG tablet 60 tablet 0 Sig: Take 1 tab PO BID PRN anxiety ??? escitalopram (LEXAPRO) 10 MG tablet 30 tablet 1 Sig: Take 1 tablet by mouth once daily ??? norgestimate-ethinyl estradiol (ORTHO-CYCLEN; MONONESSA; PREVIFEM; SPRINTEC) 0.25-35 MG-MCG tablet 1 packet 0 Sig: Take 3 tabs on day 1, 2 tabs on day 2, and 1 tab daily thereafter. ??? omeprazole (PRILOSEC) 40 MG capsule 30 capsule 1 Sig: Take 1 capsule by mouth once daily Person calling for the refill: patient Last office visit 01/23/19 Next Appointment scheduled: Visit date not found Last Refill for this medication 01/23/19 Does patient have any new allergies since last office visit? No Was the pharmacy verified? Yes If this is a controlled substance was the Last 4 of SSN verified? YES Pt is requesting a 90 day supply on her RX's if possible please. documented in this encounter Plan of Treatment Upcoming Encounters Date Type Department Care Team (Late st Contact Info) Description 09/19/2024 8:15 AM INDUSTRIAL CONVEYOR BELT REPAIRER Hospital Encounter [facility] Maternal & Care [address] [place], [place] [id number] documented as of this encounter Visit Diagnoses Not on filedocumented in this encounter Care Teams Pulp Grinder And Blender Relationship Specialty Start Date End Date Brian Velarde DO PCP - General Family Medicine 11/28/18 04/15/23 Andres Angela MD Psychiatry 12/16/18 documented as of this encounter
--- OUTSIDE RECORDS SUMMARY | 2024-09-18 05:30 | XMS_ITS | Encounter Summary ---
Author Organization [facility] Address [address] [place] [address] Care Team Providers Care Sewing Machine Operator Paper Bags Name Role Phone Brian Velarde DO Primary Care Provider [phone] Andres Angela MD Unavailable [phone] Reason for Visit * Reason Onset Date Comments Forms 01/02/2019 Encounter Details Date Type Department Care Team (Late st Contact Info) Description 01/02/2019 Telephone [facility] - Family Medicine [address] [place] [address] Brian Velarde, DO [address] [place] [address] Forms Social History Tobacco Use Types Packs/Day [...] encounter Miscellaneous Notes * Telephone Encounter - Jaida Yamilex Melton - 01/02/2019 1:03 PM CDT Called patient back and informed her of same. Patient states that she really needs Dr. Velarde to fill out this form and that he doesn't need to fill the whole thing out but just what he is comfortable with. Told the patient that I have already asked the doctor twice about this form and asked if we could just fill out parts of it and he has said no both times. Patient insists that I ask again. Told the patient that this is the final time that I will ask the doctor. Spoke to Dr. Velarde and explained the situation and what the patient is requesting and he says no he will not fill out the form. Informed patient of same. * Telephone Encounter - Kendra Wilson - 01/02/2019 12:44 PM CDT Pt called and asked if we received her paperwork to filled out for her disability. Pt was informed that we have received the paperwork but once paperwork was reviewed we seem that it could not be filled out because it was a physician statement for behavioral health. Pt will need to take those formsto a psychiatrist to be filled out. Tried calling pt back to inform her but pt voicemail was full documented in this encounter Plan of Treatment Upcoming Encounters Date Type Department Care Team (Late st Contact Info) Description 09/19/2024 8:15 AM WIRE WEAVER CLOTH Hospital Encounter [facility] Maternal & Care [address] [place], [place] [phone] documented as of this encounter Visit Diagnoses Not on filedocumented in this encounter Care Teams Sewing Machine Operator Paper Bags Relationship Specialty Start Date End Date Brian Velarde DO PCP - General Family Medicine 11/28/18 04/15/23 Andres Angela MD Psychiatry 12/16/18 documented as of this encounter
--- OUTSIDE RECORDS SUMMARY | 2024-09-18 05:30 | XMS_ITS | Encounter Summary ---
Author Organization [facility] Address [facility] [place] [address] Care Team Providers Care Senior Tax Accountant Name Role Phone Unavailable Primary Care Provider Unavailabl e Reason for Visit * Reason Onset Date Comments Medication Request 06/10/2017 Wants OCP as previously discussed with A Ann Marie ESPINOSA, VO received Encounter Details Date Type Department Care Team (Late Contact Info) Description 06/10/2017 Telephone [facility]ER[facility]/ EVALUATION UNIT [address] [facility] [place] [address] Tammy Jesus, TRAFFIC RATE COMPUTER-TELEMARKETING FUNDRAISER [address] [place] [address] Medication Request (Wants OCP as previously discussed with A Ann Marie ESPINOSA, VO received) Social History Tobacco Use Types Packs/Day Years [...] Contact Info) Description 09/19/2024 8:15 AM PAPER SALES MANAGER Hospital Encounter [facility] Maternal & Care [address] [place] [phone] documented as of this encounter Visit Diagnoses Not on filedocumented in this encounter
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
--- OUTSIDE RECORDS SUMMARY | 2024-09-18 05:30 | XMS_ITS | Encounter Summary ---
Author Organization [facility] Address [facility] [place] [address] Care Team Providers Care Cook Helper Dessert Name Role Phone Unavailable Primary Care Provider Unavailabl e Reason for Visit * Auth/Cert Specialty Diagnoses / Procedures Referred By Christina diana Referred To Contact Referral ID Status Reason Start Date Expiration Date Visits Re quested Visits Authorized [id number] 1 1 Encounter Details Date Type Department Care Team (Late st Contact Info) Description 03/10/2017 5:29 AM CDT Anesthesia Event [facility] [address] [place] [address] Julio Rico MD [address] [facility] [place] [address] Cynthia Enrique, INDUSTRIAL MAINTENANCE MANAGER-APPLIANCE REPAIRER [address] [place] [address] Anesthesia Record Procedure Summary Procedure Name Responsible Anesthesiologist Anesthesia Start Time Anesthesia Stop Time EPIDURAL BLOCK Julio Rico MD 03/10/17 0529 0926 Events Date Time Event Comment 03/10/2017 0525 0529 An Start 0529 PT Reassessment 0529 Time Out Anesthesia part icipated in timeout at the time documented in the record by nursing 0535 Test Dose 0538 Bolus Dose 0546 Electnc Sig 0632 Face Time 0657 Quick Note Opted to replac e epidural 0700 Test Dose 0702 Bolus Dose 0926 An Stop Meds Name Total lidocaine 2% - epinephrine (PF) 1:200,00 0 injection 5 mL fentanyl 2 mcg/ml / ropivicaine 0.2% (reji марина no charge) 10 mL fentaNYL 2 mcg/ml and ropivicaine 0.2% i n nacl 0 mL * Agents No agents on file. * Blood No blood administrations on file. Lines, Drains, and Airways Type Details Placement Removal Peripheral IV Date: 03/07/17; Time : 1720; Orientation: Right; Tolerance: Well 03/07/17 1720 by Dorothy Mares RN 03/11/17 0720 by Jane Harmon RN Epidural Date: 03/10/17; Time : 0530; Placed By: [email or web address] 03/10/17 0530 by Cynthia Enrique, INDUSTRIAL MAINTENANCE MANAGER-APPLIANCE REPAIRER 03/10/17 0657 by Donita Mcnally INDUSTRIAL MAINTENANCE MANAGER-APPLIANCE REPAIRER Epidural Date: 03/10/17; Time : 0700; Placed By: Uli BARROS 03/10/17 0700 by Donita Mcnally, INDUSTRIAL MAINTENANCE MANAGER-APPLIANCE REPAIRER 03/10/17 1000 by Sheila Borjas RN Urethral Catheter 03/10/17; 0735; yanet borjas rn; 16; Moderate; 03/10/17; 0905; yanet borjas rn 03/10/17 0735 by Sheila Borjas RN 03/10/17 0905 by Sheila Borjas, RN documented in this encounter Social History [...] as of this encounter Progress Notes * David Fink APRN-CRNA - 03/11/2017 7:47 AM CDT ANESTHESIA POSTPROCEDURE EVALUATION Marnie Jones is a 21 y.o. female Temp: 98.4 ??F Pulse: 58 Resp: 16 BP: 112/63 SpO2: 100 % Pain Rating Score #1: 0 Anesthesia Type: epidural Mental status: sufficiently recovered from acute administration of anesthesia to participate in theevaluation and neurologic status has returned to preoperative level. Level of consciousness: awake No numbness, tingling or visual disturbances present. General appearance: well-appearing Respiratory function: natural airway. Cardiac: stable Pain: comfortable/acceptable PONV: None Postop hydration: adequate. Patient may be released from anesthesia care. Perioperative Complications: No value filed. ASA/AQI Tracking Events: No value filed. documented in this encounter Procedure Notes * Donita Mcnally APRN-CRNA - 03/10/2017 7:05 AM CDTAssociated Order(s): NEURAXIAL BLOCK NEURAXIAL BLOCK Patient Location: OB Pre Procedure Indication: labor analgesia Anticoagulation /Antithrombosis Status Confirmed: Yes Preanesthetic Checklist: patient identified, IV checked, site marked, risks and benefits discussed,surgical consent verified, monitors and equipment checked, pre-op evaluation done, timeout performed, informed consent obtained and questions answered / anesthesia plan accepted Monitors: BP and Pulse Ox Patient Condition: awake Patient Position: sitting Procedure Block Performed: epidural Prep: Betadine Sterile Field: mask, cap/hat, sterile field established and sterile gloves Approach: midline Skin Numbed with: lidocaine 1% Epidural Needle Type: Tuohy Needle Gauge: 18 Needle Length: 3.5 in Placement Site: L3-L4 Number of Attempts: 1 Loss of ResistanceTechnique: air Loss of Resistance: 6 cm Catheter Length at Skin: 10 cm CSF Aspirated from Catheter: negative Blood Aspirated from Catheter: negative Test Dose: lidocaine 1.5% with 1 200 k epinephrine 3 ml at 03/10/2017 7:00 AM Test Dose Response: negative Local Anesthetic: ropivacaine 0.2% 10 ml Epidural additive: fentanyl Events CSF return negative injection not painful no paresthesia Degree of Difficulty: none Position Post Procedure: left uterine displacement and head of bed elevated 30 degrees Vital signs monitored and stable throughout. See Anesthesia Intraop record for details. Block Performed by: uli BARROS Notes: Replaced x 1 attempt * Cynthia Enrique APRN-CRNA - 03/10/2017 5:46 AM CDTAssociated Order(s): NEURAXIAL BLOCK NEURAXIAL BLOCK Patient Location: OB Pre Procedure Indication: labor analgesia Anticoagulation /Antithrombosis Status Confirmed: Yes Preanesthetic Checklist: patient identified, IV checked, site marked, risks and benefits discussed,surgical consent verified, monitors and equipment checked, pre-op evaluation done, timeout performed, informed consent obtained and questions answered / anesthesia plan accepted Monitors: BP and Pulse Ox Patient Condition: awake Patient Position: sitting Procedure Block Performed: epidural Prep: Betadine Sterile Field: mask, cap/hat, sterile field established and sterile gloves Approach: midline Skin Numbed with: lidocaine 1% Epidural Needle Type: Tuohy Needle Gauge: 18 Needle Length: 3.5 in Placement Site: L3-L4 Number of Attempts: 1 Loss of ResistanceTechnique: air Loss of Resistance: 8 cm Catheter Threaded to: 5 cm Catheter Length at Skin: 13 cm CSF Aspirated from Catheter: negative Blood Aspirated from Catheter: negative Test Dose: lidocaine 1.5% with 1 200 k epinephrine 3 ml at 03/10/2017 5:35 AM Test Dose Response: negative Local Anesthetic: ropivacaine 0.2% Events CSF return negative injection not painful no paresthesia Degree of Difficulty: none Position Post Procedure: left uterine displacement Vital signs monitored and stable throughout. See Anesthesia Intraop record for details. Block Start Time: 03/10/2017 5:30 AM Block End Time: 03/10/2017 5:35 AM Block Performed by: torrey documented in this encounter Consult Notes * Cynthia Enrique APRN-CRNA - 03/10/2017 5:25 AM CDT Pre-anesthesia Evaluation Procedure(s): EPIDURAL BLOCK Diagnosis: There are no admission diagnoses documented for this encoun* Vital Signs: Temp: 98.3 ??F (03/10 307) Pulse: 123 (03/09 1510) Resp: 18 (03/10 307) BP: 129/75 (03/10 030) SpO2: 100 % (03/09 194) BMI: Estimated body mass index is 28.72 kg/(m^2) as calculated from the following: Height as of this encounter: 1.549 m (5' 1 ). Weight as of this encounter: 68.9 kg (152 lb). History: Past Medical History: Diagnosis Date ??? Chlamydia contact, treated 07/29/2013 reports repeat infection 2014 ??? History of asthma as a child ??? History of sexually transmitted disease Past Surgical History: Procedure Laterality Date ??? NEGATIVE SURGICAL HISTORY reports that she quit smoking about 7 months ago. She has never used smokeless tobacco. She reportsthat she does not drink alcohol or use illicit drugs. Allergies: has No Known Allergies. Medications: Home Medications for Outpatients: No current outpatient prescriptions on file. Home Medications for Inpatients: Prescriptions Prior to Admission Medication Sig Dispense Refill ??? Vit-Fe Fumarate-FA ( VITAMIN) 28-0.8 MG tablet Take 1 Tab by mouth once daily 30 Tab 5 ??? fluconazole (DIFLUCAN) 150 MG tablet Take one tab po, if symptoms persist may take another tab on day 3. (Patient not taking: Reported on 03/07/2017) 2 Tab 0 ??? docusate sodium (COLACE) 100 MG capsule Take 1 Cap by mouth once daily (Patient not taking: Reported on 03/07/2017) 60 Cap 1 ??? famotidine (PEPCID) 20 MG tablet Take 1 Tab by mouth once daily as needed for Heartburn (Indigestion) (Patient not taking: Reported on 03/07/2017) 30 Tab 2 Inpatient Medications: Current Facility-Administered Medications Medication Dose Route Frequency Provider Last Rate Last Dose ??? miSOPROStol (CYTOTEC) tablet 25 mcg 25 mcg Buccal Once Sayra Cerda MD ??? lactated ringers infusion ADS Med ??? fentaNYL 2 mcg/ml and ropivicaine 0.2% in nacl ADS Med ??? famotidine (PEPCID) tablet 20 mg 20 mg Oral BID Elma Obrien MD 20 mg at 03/09/17 0534 ??? lactated ringers infusion Intravenous Continuous Jerome Dick MD 125 mL/hr at 03/09/17 1940 ??? penicillin G pot in dextrose IVPB 3 Million Units 50 mL 3 Million Units Intravenous q4h Jerome Dick MD 3 Million Units at 03/10/17 0307 ??? terbutaline (BRETHINE) injection 0.25 mg 0.25 mg Intravenous PRN Jerome Dick MD ??? oxytocin (PITOCIN) 30 units in 500 ml normal saline IV solution 125-1,000 lilibeth-units/min Intravenous CONTINUOUS PRN Jerome Dick MD ??? lidocaine (XYLOCAINE MPF) 1 % injection Infiltration PRN Jerome Dick MD ??? ondansetron (ZOFRAN) injection 4 mg 4 mg Intravenous q6h PRN Jerome Dick MD ??? meclizine (ANTIVERT) tablet 25 mg 25 mg Oral TID PRN Yolette Peters MD 25 mg at 03/08/17 1132 Recent Labs Component Name 03/07/17 1733 03/05/17 1104 02/03/17 1617 WBC 11.5* 11.1* 16.7* HGB 10.4* 9.8* 10.3* HCT 31.1* 30.1* 31.8* PLTCOUNT 267 246 306 306 Physical Exam: NPO status: continuous clear liquids Oriented to person, place and time Airway: II Neck ROM: full Dental exam findings: normal/ok Pulmonary exam: breath sounds CTA Heart sounds: S1 S2 Review of Systems: Reviewed labs Plan for Anesthesia: Reviewed allergies, history and medications ASA Score: 2. Anesthesia plan: epidural Planned postop destination: OB Anesthesia plan, risks and benefits discussed with patient Anesthesia consent: obtained Plan accepted yes Discussed anesthesia plan with: anesthesiologist. documented in this encounter Plan of Treatment Upcoming Encounters Date Type Department Care Team (Late st Contact Info) Description 09/19/2024 8:15 AM DIORAMA MODEL MAKER Hospital Encounter [facility] Maternal & Care [address] [place], [place] [id number] documented as of this encounter Procedures Procedure Name Priority Date/Time Associated Diagnosis Comments NEURAXIAL BLOCK Routine 03/10/2017 7:06 AM CDT Procedure Note - Donita Mcnally APRN-CRNA - 03/10/2017 7:05 AM CDTThis note is in progress. NEURAXIAL BLOCK Patient Location: OB Pre Procedure Indication: labor analgesia Anticoagulation /Antithrombosis Status Confirmed: Yes Preanesthetic Checklist: patient identified, IV checked, site marked,risks and benefits discussed, surgical consent verified, monitors andequipment checked, pre-op evaluation done, timeout performed, informedconsent obtained and questions answered / anesthesia plan accepted Monitors: BP and Pulse Ox Patient Condition: awake Patient Position: sitting Procedure Block Performed: epidural Prep: Betadine Sterile Field: mask, cap/hat, sterile field established and sterilegloves Approach: midline Skin Numbed with: lidocaine 1% Epidural Needle Type: Tuohy Needle Gauge: 18 Needle Length: 3.5 in Placement Site: L3-L4 Number of Attempts: 1 Loss of ResistanceTechnique: air Loss of Resistance: 6 cm Catheter Length at Skin: 10 cm CSF Aspirated from Catheter: negative Blood Aspirated from Catheter: negative Test Dose: lidocaine 1.5% with 1 200 k epinephrine 3 ml at 03/10/20177:00 AM Test Dose Response: negative Local Anesthetic: ropivacaine 0.2% 10 ml Epidural additive: fentanyl Events CSF return negative injection not painful no paresthesia Degree of Difficulty: none Position Post Procedure: left uterine displacement and head of bedelevated 30 degrees Vital signs monitored and stable throughout. See Anesthesia Intraoprecord for details. Block Performed by: uli BARROS Notes: Replaced x 1 attempt NEURAXIAL BLOCK Routine 03/10/2017 5:47 AM CDT Procedure Note - Cynthia Enrique APRN-CRNA - 03/10/2017 5:46 AM CDTThis note is in progress. NEURAXIAL BLOCK Patient Location: OB Pre Procedure Indication: labor analgesia Anticoagulation /Antithrombosis Status Confirmed: Yes Preanesthetic Checklist: patient identified, IV checked, site marked,risks and benefits discussed, surgical consent verified, monitors andequipment checked, pre-op evaluation done, timeout performed, informedconsent obtained and questions answered / anesthesia plan accepted Monitors: BP and Pulse Ox Patient Condition: awake Patient Position: sitting Procedure Block Performed: epidural Prep: Betadine Sterile Field: mask, cap/hat, sterile field established and sterilegloves Approach: midline Skin Numbed with: lidocaine 1% Epidural Needle Type: Tuohy Needle Gauge: 18 Needle Length: 3.5 in Placement Site: L3-L4 Number of Attempts: 1 Loss of ResistanceTechnique: air Loss of Resistance: 8 cm Catheter Threaded to: 5 cm Catheter Length at Skin: 13 cm CSF Aspirated from Catheter: negative Blood Aspirated from Catheter: negative Test Dose: lidocaine 1.5% with 1 200 k epinephrine 3 ml at 03/10/20175:35 AM Test Dose Response: negative Local Anesthetic: ropivacaine 0.2% Events CSF return negative injection not painful no paresthesia Degree of Difficulty: none Position Post Procedure: left uterine displacement Vital signs monitored and stable throughout. See Anesthesia Intraoprecord for details. Block Start Time: 03/10/2017 5:30 AM Block End Time: 03/10/2017 5:35 AM Block Performed by: torrey documented in this encounter Visit Diagnoses Not on filedocumented in this encounter Administered Medications Inactive Administered Medications - up to 3 most recent administrations Medication Order MAR Action Action Date Dose Rate Site fentaNYL 2 mcg/ml and ropivicaine 0.2% in 0.9% nacl Epidural CONTINUOUS PRN, Starting on Wed03/10/17 at 0540, Until Wed03/10/17 at 1113, Anesthesia Intra-op $ New Bag/Syringe 03/10/2017 5:40 AM CDT 12 mL/hr fentaNYL 2 mcg/ml/ropivicaine 0.2% (bolus no charge) Epidural Epidural, PRN, Starting on Wed03/10/17 at 0703, Until Wed03/10/17 at 1113, Anesthesia Intra-op $ Given 03/10/2017 7:03 AM CDT 10 mL lidocaine 2% - EPINEPHrine 1:200,000 injection PRN, Starting on Wed03/10/17 at 0632, Until Wed03/10/17 at 1113, Anesthesia Intra-op $ Given 03/10/2017 6:32 AM CDT 5 mL documented in this encounter
--- OUTSIDE RECORDS SUMMARY | 2024-09-18 05:30 | XMS_ITS | Encounter Summary ---
Author Organization [facility] Address [facility]3 [place] [address] Care Team Providers Care Seasonal Clerk Name Role Phone Brian Velarde DO Primary Care Provider [phone] Andres Angela MD Unavailable [phone] Reason for Visit * Reason Onset Date Comments Forms 12/21/2018 Behavioral Healt h Encounter Details Date Type Department Care Team (Late st Contact Info) Description 12/21/2018 Telephone [facility] Medical [facility] - Family Medicine [address] [place] [address] Brian Velarde, DO [address] [phone] Forms (Behavioral Health) Social History Tobacco Use Types Packs/Day Years [...] Miscellaneous Notes * Telephone Encounter - Sonia Schwartz - 12/27/2018 2:11 PM CDT Records printed and faxed to [employer] at [phone]. Faxed confirmation received. Claim #[id number]. * Telephone Encounter - Vincenzo Carter - 12/26/2018 2:17 PM CDT Records release has been completed by patient and is on Sonia's desk. * Telephone Encounter - Sonia Schwartz - 12/22/2018 12:02 PM CDT Received Medical Record request from [employer] needing Office treatment notes for 12/05/2018 to present. Unable to process because no signed release on file. Tried to notify the patient but no voice mail set up. Contacted [employer] and was transferred to jet [place] that is over her case. Left Connor mail to contact me on the back line to see if they have a signed release they can send over. Placing release in blue folder waiting to here back from [employer]. If patient comes in to sign our release she will need to sign in both spots because they are requesting medical records that have to do with Mental Health. * Telephone Encounter - Yamilex Sena - 12/21/2018 12:10 PM CDT Received a Behavioral Health form from [employer] for the patient. Spoke to Dr. Velarde and he states that we do not fill out Behavioral Health forms. Informed patient of same and told her that she should have her Behavioral Health Specialist fill this out instead. Patient claims that she already asked them and that she was told her PCP would fill it out. Told patient that if she can get a regularFMLA form then we could fill that out. Patient will call her HR and see if she can get us that form. Scanned blank Behavioral Health form into the patient's chart. documented in this encounter Plan of Treatment Upcoming Encounters Date Type Department Care Team (Late st Contact Info) Description 09/19/2024 8:15 AM CHILD CARE LEAD TEACHER Hospital Encounter [facility] Maternal & Care [address] [place], [place] [phone] documented as of this encounter Visit Diagnoses Not on filedocumented in this encounter Care Teams Seasonal Clerk Relationship Specialty Start Date End Date Brian Velarde DO PCP - General Family Medicine 11/28/18 04/15/23 Andres Angela MD Psychiatry 12/16/18 documented as of this encounter
--- OUTSIDE RECORDS SUMMARY | 2024-09-18 05:30 | XMS_ITS | Encounter Summary ---
Author Organization [facility] Address [address] [facility] [place] [address] Care Team Providers Care Chief Privacy Officer Name Role Phone Unavailable Primary Care Provider Unavailabl e Reason for Visit * Reason Onset Date Comments Update 10/14/2017 Encounter Details Date Type Department Care Team (Late st Contact Info) Description 10/14/2017 Telephone [facility] - [address] [phone] Madison Mathis, DO [address] [address] Update Social History Tobacco Use Types Packs/Day [...] encounter Miscellaneous Notes * Telephone Encounter - Danii Navarro - 10/14/2017 1:47 PM CST Who is calling? Patient What is the reason for call? Patient called today to cancel her appointment for this afternoon - she states that her injury happened at work and her employer sent her to the workman's comp doctor. Expected Response from the Clinic? ( ex. Call back, etc..) FYI PTIONIST CLERK documented in this encounter Plan of Treatment Upcoming Encounters Date Type Department Care Team (Late st Contact Info) Description 09/19/2024 8:15 AM RECEPTIONIST CLERK Hospital Encounter [facility] Maternal & Care [address] [place] [phone] documented as of this encounter Visit Diagnoses Not on filedocumented in this encounter
--- OUTSIDE RECORDS SUMMARY | 2024-09-18 05:30 | XMS_ITS | Encounter Summary ---
Author Organization [facility] Address [address] [facility] [place] [address] Care Team Providers Care Director Strategic Planning Name Role Phone Brian Velarde DO Primary Care Provider Andres Angela MD Unavailable [phone] Reason for Visit * Reason Onset Date Comments Letter 01/31/2019 Encounter Details Date Type Department Care Team (Late st Contact Info) Description 01/31/2019 Telephone [facility] - Family Medicine [address] [place] [address] Brian Velarde, DO [address] [place] [address] Letter Social History Tobacco Use Types Packs/Day Years [...] * Telephone Encounter - Sonia Schwartz - 02/01/2019 12:52 PM CDT Letter mailed certified to [employer] and also faxed to [phone]. Faxed confirmation received. Claim#[id number]. This claim is currently appealed. * Telephone Encounter - Brian Velarde DO - 02/01/2019 10:56 AM CDT Letter composed given to Tamika Lundberg * Telephone Encounter - Sonia Schwartz - 01/31/2019 1:07 PM CDT Pt contacted the office and states [facility] is needing more information. Pt works off a point system at work and this will go against her because they will not approve her from being out of work from12/08/2018-12/15/2018 until she was able to get in for outpatient therapy on 12/16/2018. [facility] has already received all her medical records but is recommending us to write a letter thatstates: diagnosis, reason she was unable to work during these dates, treatment plan, medications given, and her next scheduled appointment. After [facility] receives letter they will review dates to possibly approve. If approved, I will be happy to fax. documented in this encounter Plan of Treatment Upcoming Encounters Date Type Department Care Team (Late st Contact Info) Description 09/19/2024 8:15 AM [facility] Hospital Encounter [facility] Maternal & Care [address] [place] [phone] documented as of this encounter Visit Diagnoses Not on filedocumented in this encounter Care Teams Director Strategic Planning Relationship Specialty Start Date End Date Brian Velarde DO PCP - General Family Medicine 3/11/19 7/27/23 Andres Angela MD Psychiatry 12/16/18 documented as of this encounter
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
--- OUTSIDE RECORDS SUMMARY | 2024-09-18 05:30 | XMS_ITS | Encounter Summary ---
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 Albumin 2.5 (L) 3.5 - 5.2 gm/dL Bilirubin Total 0.1 (L) 0.2 - 1.0 mg/dL eGFR by MDRD >60 >60 mL/min/1.73m2 eGFR by MDRD >60 >60 mL/min/1.73m2 MAGNESIUM BLOOD Result Value Ref Range Magnesium 1.0 (LL) 1.6 - 2.6 mg/dL TSH Result Value Ref Range TSH 0.6880 0.358 - 3.74 uIU/mL RENAL FUNCTION PANEL Result Value Ref Range Glucose 98 74 - 106 mg/dL Sodium 138 136 - 145 mmol/L Potassium 4.1 3.5 - 5.1 mmol/L Chloride 105 98 - 107 mmol/L CO2 25 23 - 31 mmol/L Calcium 9.5 8.4 - 10.2 mg/dL Anion Gap 8 8 - 16 mmol/L BUN 7 7 - 18.7 mg/dL Creatinine 0.68 0.55 - 1.02 mg/dL Albumin 3.9 3.5 - 5.2 gm/dL Phosphorus 3.3 2.3 - 4.7 mg/dL eGFR by MDRD >60 >60 mL/min/1.73m2 eGFR by MDRD >60 >60 mL/min/1.73m2 XR CHEST PA AND LATERAL 10:40 PM Preliminary view and read by me: Dr. Sullivan No acute process. Progress Notes 9:35 PM: Patient presents with heart rate between 240-260bpm. 6mg Adenosine given to break SVT. Patient is now in sinus tachycardia and feeling much better. 10:16 PM: Call placed to Lori. 10:39 PM: I discussed with Dr. Nelson (LORI) all pertinent aspects of the case including HPI details, physical exam findings, testing completed, medications given, the pt's current condition, my clinical impression, and the need for admission for further evaluation and treatment. Dr. Nelson agreesto accept the patient at this time. The patient/family understand and agree with the plan. Vitals prior to admission: Blood pressure 124/70, pulse 93, temperature 97.6 ??F (36.4 ??C), resp. rate 19, height 1.549 m (5' 1 ), weight 84.1 kg (185 lb 6.4 oz), SpO2 100 %, not currently . ED Course ED Course Medical Decision Making I have reviewed the: Previous Chart, Nursing Notes, Vitals. I have interpreted the following results: Labs, 12 Lead EKG, X-Ray, Oxygen Saturation. I have discussed the case with Hospitalist (Dr. Nelson (LORI)). Orders Placed This Encounter ??? ED CRITICAL CARE ??? XR CHEST PA AND LATERAL ??? TROPONIN I ??? TROPONIN I ??? CBC W AUTO DIFFERENTIAL ??? COMPREHENSIVE METABOLIC PANEL ??? HCG URINE QUAL POCT NOTIFICATION ??? MAGNESIUM BLOOD ??? TSH ??? RENAL FUNCTION PANEL ??? URINALYSIS REFLEX MICROSCOPIC REFLEX CULTURE ??? DRUG SCREEN TOX URINE PANEL ??? MAGNESIUM BLOOD ??? EKG 12-LEAD ??? ECHOCARDIOGRAM 2D WITH DOPPLER ??? AND Linked Order Group ??? 0.9% NaCl injection 3 mL ??? 0.9% NaCl injection 1-10 mL ??? DISCONTD: albuterol-ipratropium (DUO-NEB) nebulizer solution 3 mL ??? adenosine (ADENOCARD) injection ADS Med ??? 0.9% NaCl IV Bolus ??? DISCONTD: potassium chloride 40 mEq in 0.9% NaCl 270 mL bolus ??? DISCONTD: potassium chloride oral solution 20 mEq ??? calcium gluconate 10 % injection 1 g ??? DISCONTD: potassium chloride 20 mEq in 100 mL SW bolus ??? potassium chloride 20 mEq in 100 mL SW bolus ??? magnesium sulfate 2 g in 50 mL bolus ??? escitalopram (LEXAPRO) tablet 20 mg ??? DISCONTD: clonazePAM (KlonoPIN) tablet 2 mg ??? enoxaparin (LOVENOX) injection 40 mg ??? metoprolol tartrate IR (LOPRESSOR) tablet 12.5 mg ??? acetaminophen (TYLENOL) tablet 650 mg ??? clonazePAM (KlonoPIN) tablet 1 mg Clinical Impression Final diagnoses: Chest pain, unspecified type SVT (supraventricular tachycardia) Acute hypokalemia Hypocalcemia Hypomagnesemia Disposition: Admit to Medical Tele under Dr. Nelson By signing my name below, I, Evelia Springer, attest that this documentation has been prepared under the direction and in the presence of Dr. Sullivan Electronically Signed: Nohemi Samaniego. 03/09/2019 1:46 AM I, Dr. Sullivan, personally performed the services described in this documentation. All medical record entries made by the scribe were at my direction and in my presence. I have reviewed the chart and discharge instructions and agree that the record reflects my personal performance and is accurate and complete. Dr. 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 [facility] [address] [place], [place] [id number] documented as of this encounter Procedures Procedure Name Priority Date/Time Associated Diagnosis Comments CARDIAC EKG ORDER 03/10/2019 12: 16 PM CDT CARDIAC RHYTHM STRIP ORDER 03/10/2019 12:16 PM CDT ECHOCARDIOGRAM 2D WITH DOPPLER Routine 03/09/2019 11:44 AM CDT Chest pain, unspecified type SVT (supraventricular tachycardia) URINALYSIS REFLEX MICROSCOPIC REFLEX CULTURE Routine 03/09/2019 4:55 AM CDT URINE DRUG SCREEN IMMUNOASSAY Routine 03/09/2019 4:55 AM CDT TROPONIN I Timed 03/09/2019 3:42 AM CDT MAGNESIUM BLOOD Routine 03/09/2019 3:42 AM CDT ED CRITICAL CARE Routine 03/09/2019 1:46 AM CDT SVT (supraventricular tachycardia) Acute hypokalemia Hypocalcemia Hypomagnesemia HCG URINE QUAL POCT NOTIFICATION STAT 03/09/2019 12:36 AM CDT TROPONIN I Timed 03/09/2019 12:09 AM CDT RENAL FUNCTION PANEL STAT 03/09/2019 12:09 AM CDT TSH STAT 03/09/2019 12:09 AM CDT XR CHEST 2VW STAT 03/08/2019 10:31 PM CDT Chest pain, unspecified type TROPONIN I STAT 03/08/2019 9:42 PM CDT CBC W AUTO DIFFERENTIAL STAT 03/08/2019 9:42 PM CDT COMPREHENSIVE METABOLIC PANEL STAT 03/08/2019 9:42 PM CDT MAGNESIUM BLOOD Add on 03/08/2019 9:42 PM CDT EKG 12-LEAD STAT 03/08/2019 9:40 PM CDT Chest pain, unspecified type documented in this encounter Results * CARDIAC EKG ORDER (03/10/2019 12:16 PM CDT) Narrative 03/10/2019 12:16 PM CDT Ordered by an unspecified provider. Scanned Document CARDIAC SERVICES ORD ERABLES * CARDIAC RHYTHM STRIP ORDER (03/10/2019 12:16 PM CDT) Narrative 03/10/2019 12:16 PM CDT Ordered by an unspecified provider. Scanned Document CARDIAC SERVICES ORD ERABLES * ECHOCARDIOGRAM 2D WITH DOPPLER (03/09/2019 11:44 AM CDT) 03/09/2019 11:4 4 AM CDT Narrative [facility] - 03/09/2019 5:14 PM CDT [address] [address] Transthoracic Echocardiogram 2D, M-mode, Doppler, and Color Doppler Patient: MARNIE MURPHY MR number: [id number] Height: 61 in Weight: 184.6 lb BSA: 1.83 m?? 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 Study date: 09-Mar-2019 : 1995 Age: 23 years Gender: Female Race: Black General Maintenance Engineer: Veronika Valladares RDCS Referring Physician: Nate Nelson [...] 09-Mar-2019 17:13:56 Nate Nelson MD ECHO ORDERABLES [facility] [address] [place] [address] * (ABNORMAL) DRUG SCREEN TOX URINE PANEL (03/09/2019 4:55 AM CDT) Amphetamines Screen Urine Not Detected Not Detected 03/09/2019 5:23 AM CDT [facility] Barbiturates Screen Urine Not Detected Not Detected 03/09/2019 5:23 AM CDT [facility] Benzodiazepines Screen Urine Not Detected Not Detected 03/09/2019 5:23 AM CDT [facility] Cannabinoids Screen Urine Detected(A) Not Detected 03/09/2019 5:23 AM CDT [facility] Cocaine Screen Urine Not Detected Not Detected 03/09/2019 5:23 AM CDT [facility] Methadone Screen Urine Not Detected Not Detected 03/09/2019 5:23 AM CDT [facility] Opiate Screen Urine Not Detected Not Detected 03/09/2019 5:23 AM CDT [facility] Phencyclidine Screen Urine Not Detected Not Detected 03/09/2019 5:23 AM CDT [facility] Urine URINE / Unknown Collection / Unknown 03/09/2019 4:55 AM CDT 03/09/2019 5:03 AM CDT Narrative [facility] - 03/09/2019 5:23 AM CDT This drug screen is designed for MEDICAL [...] ?1000 ng/mL BARBITURATES ? 200 ng/mL BENZODIAZEPINES ??200 ng/mL CANNABINOIDS(THC) 50 ng/mL COCAINE ?300 ng/mL METHADONE ?300 ng/mL OPIATES ?300 ng/mL PHENCYCLIDINE(PCP)25 ng/mL Nate Nelson MD LAB - URINE CHEMISTR Y ORDERABLES Performing Organization Address City/[facility]/ZIP Co de Phone Number [facility] [address] [place], [place] [phone] * (ABNORMAL) URINALYSIS REFLEX MICROSCOPIC REFLEX CULTURE (03/09/2019 4:55 AM CDT) Color UA Yellow Straw, Yellow 03/09/2019 5:10 AM CDT [facility] Clarity UA Slt Cloudy(A) Clear 03/09/2019 5:10 AM CDT [facility] Glucose UA Negative Negative 03/09/2019 5:10 AM CDT [facility] Bilirubin UA Negative Negative 03/09/2019 5:10 AM CDT [facility] Ketone UA Negative Negative 03/09/2019 5:10 AM CDT [facility] Specific [place] UA 1.017 1.005 - 1.030 03/09/2019 5:10 AM CDT [facility] Blood UA Negative Negative 03/09/2019 5:10 AM CDT [facility] pH UA 6.0 5.0 - 8.0 pH 03/09/2019 5:10 AM CDT [facility] Protein UA Negative Negative 03/09/2019 5:10 AM CDT [facility] Urobilinogen UA Negative Negative mg/dL 03/09/2019 5:10 AM CDT [facility] Nitrite UA Negative Negative 03/09/2019 5:10 AM CDT [facility] Leukocyte UA Negative Negative 03/09/2019 5:10 AM CDT [facility] Urine Microscopy Urine microscopy not indicated 03/09/2019 5:10 AM CDT [facility] Reflex Status Culture not indicated 03/09/2019 5:10 AM CDT [facility] Urine URINE SPECIMEN OBTAINED BY CLEAN CATCH PROCEDURE / Unknown Collection / Unknown 03/09/2019 4:55 AM CDT 03/09/2019 5:03 AM CDT Narrative [facility] - 03/09/2019 5:10 AM CDT Nate Nelson MD LAB - URINALYSIS ORD ERABLES Performing Organization Address City/[facility]/ZIP Co de Phone Number [facility] [address] [place], [place] [phone] * MAGNESIUM BLOOD (03/09/2019 3:42 AM CDT) Magnesium 2.2 1.6 - 2.6 mg/dL 03/09/2019 4:14 AM CDT [facility] Blood BLOOD SPECIMEN / Unknown Lab Venipuncture / Unknown 03/09/2019 3:42 AM CDT 03/09/2019 3:46 AM CDT Nate Nelson MD LAB - CHEMISTRY SANGITA ARAIZA Performing Organization Address [facility] Co de Phone Number [facility] [address] [place] [phone] * (ABNORMAL) TROPONIN I (03/09/2019 3:42 AM CDT) Pathologist [facility] Troponin I 0.068(HH) <0.038 ng/mL 03/09/2019 4:25 AM CDT [facility] Blood BLOOD SPECIMEN / Unknown Lab Venipuncture / Unknown 03/09/2019 3:42 AM CDT 03/09/2019 3:46 AM CDT Narrative [facility] - 03/09/2019 4:25 AM CDT [...] - CHEMISTRY OR DERABLES Performing Organization Address [facility]/ZIP Co de Phone Number [facility] [address] [place] [phone] * ED CRITICAL CARE (03/09/2019 1:46 AM CDT) Narrative Danish Sullivan DO - 03/09/2019 1:46 AM CDT Danish [...] See Separate Report 03/09/2019 2:00 AM CDT [facility] Urine URINE / Unknown 03/09/2019 1 2:36 AM CDT 03/09/2019 12:36 AM CDT Danish Sullivan DO LAB - URINALYSIS O RDERABLES [facility] [address] [place], [place] [phone] * RENAL FUNCTION PANEL (03/09/2019 12:09 AM CDT) Glucose 98 74 - 106 mg/dL 03/09/2019 12:46 AM CDT [facility] Sodium 138 136 - 145 mmol/L 03/09/2019 12:46 AM CDT [facility] Potassium 4.1 3.5 - 5.1 mmol/L 03/09/2019 12:46 AM CDT [facility] Chloride 105 98 - 107 mmol/L 03/09/2019 12:46 AM CDT [facility] CO2 25 23 - 31 mmol/L 03/09/2019 12:46 AM CDT [facility] Calcium 9.5 8.4 - 10.2 mg/dL 03/09/2019 12:46 AM CDT [facility] Anion Gap 8 8 - 16 mmol/L 03/09/2019 12:46 AM CDT [facility] BUN 7 7 - 18.7 mg/dL 03/09/2019 12:46 AM CDT [facility] Creatinine 0.68 0.55 - 1.02 mg/dL 03/09/2019 12:46 AM CDT [facility] Albumin 3.9 3.5 - 5.2 gm/dL 03/09/2019 12:46 AM CDT [facility] Phosphorus 3.3 2.3 - 4.7 mg/dL 03/09/2019 12:46 AM CDT [facility] eGFR by MDRD >60 >60 mL/min/1.7 3m2 03/09/2019 12:46 AM CDT [facility] eGFR by MDRD >60 >60 mL/min/1.7 3m2 03/09/2019 12:46 AM CDT [facility] Blood BLOOD SPECIMEN / Unknown Lab Venipuncture / Unknown 03/09/2019 12:09 AM CDT 03/09/2019 12:12 AM CDT Narrative [facility] - 03/09/2019 12:46 AM CDT Attention clinician: BUN Reference Range has changed. Nate Nelson MD LAB - CHEMISTRY SANGITA ARAIZA [facility] [address] [place] [phone] * TSH (03/09/2019 12:09 AM CDT) TSH 0.6880 0.358 - 3.74 uIU/mL 03/09/2019 1:01 AM CDT [facility] Blood BLOOD SPECIMEN / Unknown Lab Venipuncture / Unknown 03/09/2019 12:09 AM CDT 03/09/2019 12:12 AM CDT Nate Nelson MD LAB - CHEMISTRY SANGITA ARAIZA [facility] [address] [place] [phone] * TROPONIN I (03/09/2019 12:09 AM CDT) Troponin I 0.018 <0.038 ng/mL 03/09/2019 12:46 AM CDT [facility] Blood BLOOD SPECIMEN / Unknown Lab Venipuncture / Unknown 03/09/2019 12:09 AM CDT 03/09/2019 12:12 AM CDT Narrative [facility] - 03/09/2019 12:46 AM CDT Note: Diagnosis of myocardial infarction [...] Sullivan DO LAB - CHEMISTRY OR DERABLES [facility] [address] [place] [address] * XR CHEST PA AND LATERAL (03/08/2019 10:31 PM CDT) Anatomical Region Laterality Modality Chest Radiographic [...] Danish Sullivan DO DIAGNOSTIC IMAGING ORDERABLES * (ABNORMAL) MAGNESIUM BLOOD (03/08/2019 9:42 PM CDT) Magnesium 1.0(LL) 1.6 - 2.6 mg/dL 03/08/2019 10:27 PM CDT [facility] Blood BLOOD SPECIMEN / Unknown Venipuncture / Unknown 03/08/2019 9:42 PM CDT 03/08/2019 9:53 PM CDT Danish Sullivan DO LAB - CHEMISTRY OR DERABLES Performing Organization Address City/State/[facility] Co de Phone Number [facility] [address] [place] [address] * (ABNORMAL) COMPREHENSIVE METABOLIC PANEL (03/08/2019 9:42 PM CDT) Glucose 80 74 - 106 mg/dL 03/08/2019 10:08 PM CDT [facility] Sodium 141 136 - 145 mmol/L 03/08/2019 10:08 PM CDT [facility] Potassium 2.4(LL) 3.5 - 5.1 mmol/L 03/08/2019 10:08 PM T [facility] Chloride 121(H) 98 - 107 mmol/L 03/08/2019 10:08 PM CDT [facility] CO2 12(L) 23 - 31 mmol/L 03/08/2019 10:08 PM CDT [facility] Calcium 5.6(LL) 8.4 - 10.2 mg/dL 03/08/2019 10:08 PM T [facility] Anion Gap 8 8 - 16 mmol/L 03/08/2019 10:08 PM CDT [facility] BUN 5(L) 7 - 18.7 mg/dL 03/08/2019 10:08 PM CDT [facility] Creatinine 0.40(L) 0.55 - 1.02 mg/dL 03/08/2019 10:08 PM CDT [facility] Alkaline Phosphatase 43 40 - 150 U/L 03/08/2019 10:08 PM CDT [facility] ALT 10(L) 13 - 61 U/L 03/08/2019 10:08 PM CDT [facility] AST 13 5 - 34 U/L 03/08/2019 10:08 PM CDT [facility] Protein Total 4.7(L) 6.4 - 8.3 gm/dL 03/08/2019 10:08 PM CDT [facility] Albumin 2.5(L) 3.5 - 5.2 gm/dL 03/08/2019 10:08 PM CDT [facility] Bilirubin Total 0.1(L) 0.2 - 1.0 mg/dL 03/08/2019 10:08 PM CDT [facility] eGFR by MDRD >60 >60 mL/min/1.7 3m2 03/08/2019 10:08 PM CDT [facility] eGFR by MDRD >60 >60 mL/min/1.7 3m2 03/08/2019 10:08 PM CDT [facility] Blood BLOOD SPECIMEN / Unknown Venipuncture / Unknown 03/08/2019 9:42 PM CDT 03/08/2019 9:53 PM CDT Narrative [facility] - 03/08/2019 10:08 PM CDT Attention clinician: BUN Reference Range has changed. Danish Sullivan DO LAB - CHEMISTRY OR DERABLES [facility] [address] [place] [address] * (ABNORMAL) CBC W AUTO DIFFERENTIAL (03/08/2019 9:42 PM CDT) WBC 11.5(H) 4.4 - 10.7 x10E9/L 03/08/2019 9:50 PM CDT [facility] WBC Corrected x10E9/L 03/08/2019 9:50 PM CDT [facility] RBC 4.71 3.80 - 5.20 x10E12/L 03/08/2019 9:50 PM CDT [facility] Hemoglobin 11.7(L) 12.0 - 15.6 gm/dL 03/08/2019 9:50 PM CDT [facility] Hematocrit 38.2 35.9 - 45.5 % 03/08/2019 9:50 PM CDT [facility] MCV 81.1 80.7 - 98.3 fl 03/08/2019 9:50 PM CDT [facility] MCH 24.8(L) 26.7 - 34.0 pg 03/08/2019 9:50 PM CDT [facility] MCHC 30.6(L) 30.8 - 35.9 gm/dL 03/08/2019 9:50 PM CDT [facility] Platelet Count 383 153 - 416 x10E9/L 03/08/2019 9:50 PM CDT [facility] RDW-CV 14.4 12.1 - 14.9 % 03/08/2019 9:50 PM CDT [facility] MPV 11.0 9.4 - 12.9 fl 03/08/2019 9:50 PM [facility] Neutrophils % 42.2(L) 44.0 - 73.0 % 03/08/2019 9:50 PM [facility] Lymphocytes % 46.0(H) 20.0 - 43.0 % 03/08/2019 9:50 PM CDT [facility] Monocytes % 6.4 5.0 - 13.0 % 03/08/2019 9:50 PM CDT [facility] Eosinophils % 4.6 0.0 - 6.0 % 03/08/2019 9:50 PM CDT [facility] Basophils % 0.5 0.0 - 2.0 % 03/08/2019 9:50 PM [facility] Immature Granulocytes 0.3 0 - 1 % 03/08/2019 9:50 PM CDT [facility] Neutrophil Absolute 4.84 2.01 - 7.14 x10E9/L 03/08/2019 9:50 PM CDT [facility] Lymphocytes Absolute 5.30(H) 1.07 - 3.94 x10E9/L 03/08/2019 9:50 PM CDT [facility] Monocytes Absolute 0.74 0.26 - 1.07 x10E9/L 03/08/2019 9:50 PM CDT [facility] Eosinophils Absolute 0.53(H) 0 - 0.47 x10E9/L 03/08/2019 9:50 PM CDT [facility] Basophils Absolute 0.06 0 - 0.08 x10E9/L 03/08/2019 9:50 PM CDT [facility] Immature Granulocytes Absolute 0.04 0.00 - 0.06 x10E9/L 03/08/2019 9:50 PM CDT [facility] nRBC Auto 0 /100 WBC 03/08/2019 9:50 PM CDT [facility] Blood BLOOD SPECIMEN / Unknown Venipuncture / Unknown 03/08/2019 9:42 PM CDT 03/08/2019 9:47 PM CDT Danish Sullivan DO LAB - HEMATOLOGY O RDERABLES Performing Organization Address [facility] Co de Phone Number [facility] [address] [place] [phone] * TROPONIN I (03/08/2019 9:42 PM CDT) Pathologist [facility] Troponin I <0.010 <0.038 ng/mL 03/08/2019 10:11 PM CDT [facility] Blood BLOOD SPECIMEN / Unknown Venipuncture / Unknown 03/08/2019 9:42 PM CDT 03/08/2019 9:53 PM CDT Narrative [facility] - 03/08/2019 10:11 PM CDT Note: Diagnosis of myocardial infarction requires [...] - CHEMISTRY OR DERABLES Performing Organization Address [facility]/ZIP Co de Phone Number [facility] [address] [place] [phone] * EKG 12-LEAD (03/08/2019 9:40 PM CDT) Ventricular Rate 117 BPM [facility] Atrial Rate 117 BPM [facility] P-R Interval 158 ms [facility] QRS Duration ms 74 ms [facility] Q-T Interval ms 318 ms [facility] QTC Calculation (Bezet) 443 ms [facility] Calculated P [place] 65 degrees [facility] Calculated R [place] 26 degrees [facility] Calculated T [place] 25 degrees [facility] Interpretation EKG SINUS TACHYCARDIA WITH FREQUENT and consecutive PREMATURE VENTRICULAR COMPLEXES ABNORMAL ECG WHEN COMPARED WITH ECG OF 05-MAR-2017 11:37, PREMATURE VENTRICULAR COMPLEXES ARE NOW PRESENT NONSPECIFIC T WAVE ABNORMALITY NO LONGER EVIDENT IN ANTERIOR LEADS Confirmed by DO Fry Stephanie ([id number]) on 03/09/2019 10:08:27 AM [facility] 03/08/2019 9:40 PM CDT 03/09/2019 10:08 AM CDT Danish Chente Sullivan DO ECG ORDERABLES [facility] documented in this encounter Visit Diagnoses Diagnosis Chest pain, unspecified type SVT (supraventricular tachycardia) ([facility]) Other specified cardiac dysrhythmias Acute hypokalemia Hypopotassemia Hypocalcemia Hypomagnesemia Disorders of magnesium metabolism Hypocalcemia Acute hypokalemia Hypopotassemia Hypomagnesemia Disorders of magnesium metabolism SVT (supraventricular tachycardia) ([facility]) Other specified cardiac dysrhythmias Encounter for maternal care for suspected poor growth in roman in third trimester ([facility])- Primary Aversion to food: limiting protein intake Feeding difficulties and mismanagement Abnormal ultrasound: dopplers elevated S/d ratio Abnormal findings on screening High-risk in third trimester ([facility]) Previous baby with growth restriction Encounter for screening ([facility]) documented in this encounter Administered Medications Inactive Administered Medications - up to 3 most recent administrations Medication Order MAR Action Action Date Dose Rate Site 0.9% NaCl injection 1-10 mL 1-10 mL, Intracatheter, PRN, Other, peripheral line flush, Starting on Wed03/08/19 at 2119, Until Ruby 03/09/19 at 2217, Flush peripheral IV catheter with 1-10 mL of normal saline before and after medications and prn to clear blood from the line or to verify patency. 0.9% NaCl injection 3 mL 3 mL, Intracatheter, EVERY 8 HOURS, 1095 doses, First dose on Wed03/08/19 at 2200, Last dose on Wed03/07/20 at 1400, Flush peripheral IV catheter with 3 mL of normal saline every 8 hours. $ Given 03/09/2019 3:44 AM CDT 3 mL $ Given 03/09/2019 12:20 AM CDT 3 mL 0.9% NaCl IV Bolus 1,000 mL, at 1,935.48 mL/hr, Administer over 31 Minutes, ONCE, 1 dose, On Wed03/08/19 at 2200 $ New Bag/Syringe 03/08/2019 9:51 PM CDT 1,000 mL 1935.48 mL/hr acetaminophen (TYLENOL) tablet 650 mg 650 mg, Oral, EVERY 6 HOURS PRN, Mild Pain, Starting on Wed03/08/19 at 2355, Until Wed03/09/19 at 2217 adenosine (ADENOCARD) injection ADS Med 1 dose, Starting on Wed03/08/19 at 2133, Until Wed03/08/19 at 2139, Created by [employer] $ Given 03/08/2019 9:39 PM CDT albuterol-ipratropium (DUO-NEB) nebulizer solution 3 mL 3 mL, Inhalation, NOW, 1 dose, On Wed03/08/19 at 2130 $ Given 03/08/2019 9:47 PM CDT 3 mL calcium gluconate 10 % injection 1 g 1 g, Intravenous, NOW, 1 dose, On Wed03/08/19 at 2215 $ Given 03/08/2019 10:54 PM CDT 1 g clonazePAM (KlonoPIN) tablet 1 mg 1 mg, Oral, 3 TIMES DAILY PRN, Anxiety, Starting on Wed03/09/19 at 0014, Until Wed03/09/19 at 2217 enoxaparin (LOVENOX) injection 40 mg 40 mg, Subcutaneous, DAILY, First dose on Wed03/09/19 at 0900, Until Discontinued, (for prefilled syringes) do not expel air bubble from the syringe prior to the injection Remind Patient to not rub injection site. Could cause hematoma. escitalopram (LEXAPRO) tablet 20 mg 20 mg, Oral, DAILY, 365 doses, First dose on Wed03/09/19 at 0900, Last dose on Wed03/07/20 at 0900 $ Given 03/09/2019 10:07 AM CDT 20 mg magnesium sulfate 2 g in 50 mL bolus 2 g, at 25 mL/hr, Administer over 120 Minutes, Intravenous, NOW, 1 dose, On Wed03/08/19 at 2245, Infuse at 1 gm/hr Current Rate 03/09/2019 12:35 AM CDT 25 mL/hr Current Rate 03/08/2019 11:18 PM CDT 25 mL/hr Current Rate 03/08/2019 11:06 PM CDT 25 mL/hr metoprolol tartrate IR (LOPRESSOR) tablet 12.5 mg 12.5 mg, Oral, 2 TIMES DAILY, 730 doses, First dose on Wed03/09/19 at 0030, Last dose on Wed03/07/20 at 0900 $ Given 03/09/2019 10:07 AM CDT 12.5 mg $ Given 03/09/2019 12:27 AM CDT 12.5 mg potassium chloride oral solution 20 mEq 20 mEq, Oral, DAILY WITH BREAKFAST, 365 doses, First dose on Wed03/08/19 at 2230, Last dose on Wed03/06/20 at 0800, Nurse to dilute prior to administration $ Given 03/08/2019 11:06 PM CDT 20 mEq documented in this encounter Active and Recently Administered Medications Times are shown in CDT. Scheduled Medication Order 03/07/2019 03/08/2019 03/09/2019 0.9% NaCl injection 3 mL(Linked Group 1) 3 mL, Intracatheter, EVERY 8 HOURS, 1095 doses, First dose on Wed03/08/19 at 2200, Last dose on Wed03/07/20 at 1400, Flush peripheral IV catheter with 3 mL of normal saline every 8 hours. 0020 ($ Given - Provider: Marychuy Danielson RN)0344 ($ Given - Provider: Marychuy Danielson RN)1400 (Not Administered - Provider: Vinicius Weeks RN - Reason: Patient sleeping) 0.9% NaCl IV Bolus (COMPLETED) 1,000 mL, at 1,935.48 mL/hr, Administer over 31 Minutes, ONCE, 1 dose, On Wed03/08/19 at 2200 2151 ($ New Bag/Syringe - Provider: Deidra Choudhury RN)2227 (Stopped - Provider: Marissa Murillo RN) albuterol-ipratropium (DUO-NEB) nebulizer solution 3 mL (CANCELED) 3 mL, Inhalation, NOW, 1 dose, On Wed03/08/19 at 2130 2147 ($ Given - Provider: Kendell Price RCP) calcium gluconate 10 % injection 1 g (COMPLETED) 1 g, Intravenous, NOW, 1 dose, On Wed03/08/19 at 2215 2254 ($ Given - Provider: Marissa Murillo RN) enoxaparin (LOVENOX) injection 40 mg 40 mg, Subcutaneous, DAILY, First dose on Wed03/09/19 at 0900, Until Discontinued, (for prefilled syringes) do not expel air bubble from the syringe prior to the injection Remind Patient to not rub injection site. Could cause hematoma. 1006 (Not Administer ed - Provider: Vinicius Weeks RN - Reason: Refused-Patient) escitalopram (LEXAPRO) tablet 20 mg 20 mg, Oral, DAILY, 365 doses, First dose on Wed03/09/19 at 0900, Last dose on Wed03/07/20 at 0900 1007 ($ Given - Provider: Vinicius Weeks RN) magnesium sulfate 2 g in 50 mL bolus (COMPLETED) 2 g, at 25 mL/hr, Administer over 120 Minutes, Intravenous, NOW, 1 dose, On Wed03/08/19 at 2245, Infuse at 1 gm/hr 2258 ($ New Bag/Syringe - Provider: Marissa Murillo RN)2305 (Current Rate - Provider: Marychuy Danielson RN)2305 (Current Rate - Provider: Marychuy Danielson RN)2306 (Current Rate - Provider: Marychuy Danielson RN)2318 (Current Rate - Provider: Marychuy Danielson RN) 0035 (Current Rate - Provider: Marychuy Danielson, RN)0101 (Stopped - Provider: Marychuy Danielson RN) metoprolol tartrate IR (LOPRESSOR) tablet 12.5 mg 12.5 mg, Oral, 2 TIMES DAILY, 730 doses, First dose on Wed03/09/19 at 0030, Last dose on Wed03/07/20 at 0900 0027 ($ Given - Provider: Marychuy Danielson RN)1007 ($ Given - Provider: Vinicius Weeks RN)2100 (Due) potassium chloride oral solution 20 mEq (CANCELED) 20 mEq, Oral, DAILY WITH BREAKFAST, 365 doses, First dose on Wed03/08/19 at 2230, Last dose on Wed03/06/20 at 0800, Nurse to dilute prior to administration 2306 ($ Given - Provider: Marissa Murillo RN) PRN Medication Order 03/07/2019 03/08/2019 03/09/2019 0.9% NaCl injection 1-10 mL(Linked Group 1) 1-10 mL, Intracatheter, PRN, Other, peripheral line flush, Starting on Wed03/08/19 at 2119, Until Wed03/09/19 at 2217, Flush peripheral IV catheter with 1-10 mL of normal saline before and after medications and prn to clear blood from the line or to verify patency. acetaminophen (TYLENOL) tablet 650 mg 650 mg, Oral, EVERY 6 HOURS PRN, Mild Pain, Starting on Wed03/08/19 at 2355, Until Wed03/09/19 at 2217 clonazePAM (KlonoPIN) tablet 1 mg 1 mg, Oral, 3 TIMES DAILY PRN, Anxiety, Starting on Wed03/09/19 at 0014, Until Wed03/09/19 at 2217 No Frequency Medication Order 03/07/2019 03/08/2019 03/09/2019 adenosine (ADENOCARD) injection ADS Med (COMPLETED) 1 dose, Starting on Wed03/08/19 at 2133, Until Wed03/08/19 at 2139, Created by cabinet override 2138 ($ Given - Provider: Vince Choudhury RN) Linked Groups Order Group 1: SALINE LOCK, INSERT AND MAINTAIN (CANCELED) Routine, CONTINUOUS, Starting on Wed03/08/19 at 2130, Until Specified, New collection And 0.9% NaCl injection 3 mLJump to med 3 mL, Intracatheter, EVERY 8 HOURS, 1095 doses, First dose on Wed03/08/19 at 2200, Last dose on Wed03/07/20 at 1400, Flush peripheral IV catheter with 3 mL of normal saline every 8 hours. And 0.9% NaCl injection 1-10 mLJump to med 1-10 mL, Intracatheter, PRN, Other, peripheral line flush, Starting on 03/08/19 at 2119, Until Ruby 03/09/19 at 2217, Flush peripheral IV catheter with 1-10 mL of normal saline before and after medications and prn to clear blood from the line or to verify patency. documented in this encounter Care Teams Senior Account Representative Relationship Specialty Start Date End Date Brian Velarde DO PCP - General Family Medicine 11/28/18 04/15/23 Andres Angela MD Psychiatry 12/16/18 documented as of this encounter
--- OUTSIDE RECORDS SUMMARY | 2024-09-18 05:30 | XMS_ITS | Encounter Summary ---
Author Organization [facility] Address [facility] [facility] [place] [address] Care Team Providers Care Wood Patternmaker Apprentice Name Role Phone Brian Velarde DO Primary Care Provider [phone] Andres Angela MD Unavailable [phone] Reason for Visit * Reason Onset Date Comments Patient Requested Call 01/19/2019 Encounter Details Date Type Department Care Team (Late st Contact Info) Description 01/19/2019 Telephone [facility] - Family Medicine [address] [place] [address] Brian Velarde, DO [address] [place] [phone] Patient Requested Call Social History Tobacco Use [...] * Telephone Encounter - Sonia Schwartz - 01/24/2019 2:45 PM CDT After speaking with patient in length and also doing a 3 way call with [employer] I believe we came to and understanding that FMLA Paperwork was not needed at this time. Printed off completed 01/23/2019 ovnotes and faxed to [employer]. Left message with patient to contact me back at the office to discuss the FMLA Paperwork to see what they figured out after I got off the call. FMLA paperwork placed in blue folder to hold and went ahead and removed $20.00 charge. If pt decides she does need paperwork we will reload charge at that time and she can pay 01/23/2019 ov notes faxed to [phone] per patient request. Faxed confirmation received. * Telephone Encounter - Yamilex Sena - 01/24/2019 2:26 PM CDT Per Sonia she talked to her yesterday. Routed to Sonia. * Telephone Encounter - Kendra Wilson - 01/19/2019 4:30 PM CDT Pt called and stated that she is waiting for her FMLA paperwork to be faxed. Pt informed that she has to make the payment before we can do anything with her paperwork. Pt states that she would like to speak with Yamilex regarding this issue documented in this encounter Plan of Treatment Upcoming Encounters Date Type Department Care Team (Late st Contact Info) Description 09/19/2024 8:15 AM SCRAP PICKER Hospital Encounter [facility] Maternal & Care [address] [place] [id number] documented as of this encounter Visit Diagnoses Not on filedocumented in this encounter Care Teams Wood Patternmaker Apprentice Relationship Specialty Start Date End Date Brian Velarde DO PCP - General Family Medicine 11/28/18 04/15/23 Andres Angela MD Psychiatry 12/16/18 documented as of this encounter
--- OUTSIDE RECORDS SUMMARY | 2024-09-18 05:30 | XMS_ITS | Encounter Summary ---
Author Organization [facility] Address [facility] [place] [address] Care Team Providers Care Welding Machine Operator Thermit Name Role Phone Unavailable Primary Care Provider Unavailabl e Reason for Visit * Reason Comments FAD NST Encounter Details Date Type Department Care Team (Latest Contact Info) Description 03/03/2017 10:15 AM CDT Hospital Encounter [facility]/ EVALUATION UNIT [address] [facility] [place] [address] Tammy Jesus, COUNTY AGRICULTURAL AGENT[facility] [address] [place] [address] Discharge Disposition: Home or Self Care Social [...] 02/17/2017 11/28/2018 documented as of this encounter Plan of Treatment Upcoming Encounters Date Type Department Care Team (Late st Contact Info) Description 09/19/2024 8:15 AM [facility] Hospital Encounter [facility] Maternal & Care [address] [place] [address] documented as of this encounter Visit Diagnoses Not on filedocumented in this encounter
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
--- OUTSIDE RECORDS SUMMARY | 2024-09-18 05:30 | XMS_ITS | Encounter Summary ---
Author Organization [facility] Address [facility]3 [facility] [place] [address] Care Team Providers Care Business [employer] Dean Name Role Phone Unavailable Primary Care Provider Unavailabl e Reason for Referral * Procedure (Routine) - Closed Specialty Diagnoses / Procedures Referred By Christina diana Referred To Contact Cardiology Diagnoses Tachycardia Procedures EKG 12-LEAD Yessenia Gonzales APRN-CNP [address] [place] [address] [address] [place] [address] Referral ID Status Reason Start Date Expiration Date Visits Re quested Visits Authorized [id number] Closed 03/05/2017 09/01/2017 1 1 Reason for Visit * Reason Comments FAD NST Encounter Details Date Type Department Care Team (Late st Contact Info) Description 03/05/2017 10:01 AM CDT Hospital Encounter [facility] MATERNAL/ EVALUATION UNIT [address] [facility] [address] [place] [address] Ignacia Roca MD [address] [facility] [address] [place] [address] Discharge Disposition: Home or Self Care Social [...] st Contact Info) Description 09/19/2024 8:15 AM FLOW COORDINATOR Hospital Encounter [facility] Women's [facility] Maternal & Care [address] [place] [address] documented as of this encounter Procedures Procedure Name Priority Date/Time Associated Diagnosis Comments CBC W AUTO DIFFERENTIAL Routine 03/05/2017 11:04 AM CDT IUGR (intrauterine growth restriction) affecting care of mother, third trimester, not applicable or unspecified fetus (HCC) COMPREHENSIVE METABOLIC PANEL Routine 03/05/2017 11:04 AM CDT IUGR (intrauterine growth restriction) affecting care of mother, third trimester, not applicable or unspecified fetus (HCC) TSH Routine 03/05/2017 11:04 AM CDT IUGR (intrauterine growth restriction) affecting care of mother, third trimester, not applicable or unspecified fetus (HCC) documented in this encounter Results * EKG 12-LEAD (03/05/2017 11:37 AM CDT) Ventricular Rate 95 BPM [facility] Atrial Rate 95 BPM [facility] P-R Interval 130 ms [facility] QRS Duration ms 74 ms [facility] Q-T Interval ms 330 ms [facility] QTC Calculation (Bezet) 414 ms [facility] Calculated P [place] 50 degrees [facility] Calculated R [place] 29 degrees [facility] Calculated T [place] 8 degrees [facility] Interpretation EKG NORMAL SINUS RHYTHM NORMAL ECG WHEN COMPARED WITH ECG OF 26-JAN-2017 15:37, NO SIGNIFICANT CHANGE WAS FOUND Confirmed by MD KELSEY, HOLLAND Cash (3) on 03/05/2017 6:51:34 PM [facility] 03/05/2017 11:3 7 AM CDT 03/05/2017 6:51 PM CDT Yessenia Gonzales APRN-SUPERVISOR COLOR MAKING ECG ORDERABLES [facility] * TSH (03/05/2017 11:04 AM CDT) TSH 1.01 0.358 - 3.740 uIU/mL 03/05/2017 11:53 AM CDT [facility] Blood BLOOD SPECIMEN / Unknown Venipuncture / Unknown 03/05/2017 11:04 AM CDT 03/05/2017 11:23 AM CDT Yessenia Gonzales BUSINESS CONTINUITY CONSULTANT-SUPERVISOR COLOR MAKING LAB - CHEMISTR Y ORDERABLES [facility] [address] [place] [address] * (ABNORMAL) COMPREHENSIVE METABOLIC PANEL (03/05/2017 11:04 AM CDT) Glucose 92 74 - 106 mg/dL 03/05/2017 11:53 AM CDT [facility] Sodium 138 136 - 145 mmol/L 03/05/2017 11:53 AM CDT [facility] Potassium 3.5 3.5 - 5.1 mmol/L 03/05/2017 11:53 AM CDT [facility] Chloride 106 98 - 107 mmol/L 03/05/2017 11:53 AM CDT [facility] CO2 21(L) 22 - 31 mmol/L 03/05/2017 11:53 AM CDT [facility] Calcium 8.1(L) 8.5 - 10.1 mg/dL 03/05/2017 11:53 AM CDT [facility] Anion Gap 11 8 - 16 mmol/L 03/05/2017 11:53 AM CDT [facility] BUN 4(L) 7 - 21 mg/dL 03/05/2017 11:53 AM CDT [facility] Creatinine 0.59 0.50 - 1.30 mg/dL 03/05/2017 11:53 AM CDT [facility] Alkaline Phosphatase 158(H) 38 - 126 U/L 03/05/2017 11:53 AM CDT [facility] ALT 10(L) 13 - 61 U/L 03/05/2017 11:53 AM CDT [facility] AST 10 5 - 40 U/L 03/05/2017 11:53 AM CDT [facility] Protein Total 6.9 6.4 - 8.2 gm/dL 03/05/2017 11:53 AM CDT [facility] Albumin 2.8(L) 3.4 - 5.0 gm/dL 03/05/2017 11:53 AM CDT [facility] Bilirubin Total 0.2 0.2 - 1.0 mg/dL 03/05/2017 11:53 AM CDT [facility] eGFR by MDRD >60 >60 mL/min/1.7 3m2 03/05/2017 11:53 AM CDT [facility] eGFR by MDRD >60 >60 mL/min/1.7 3m2 03/05/2017 11:53 AM CDT [facility] Blood BLOOD SPECIMEN / Unknown Venipuncture / Unknown 03/05/2017 11:04 AM CDT 03/05/2017 11:23 AM CDT Yessenia Gonzaels BUSINESS CONTINUITY CONSULTANT-SUPERVISOR COLOR MAKING LAB - CHEMISTR Y ORDERABLES Performing Organization Address City/State/[facility] Co de Phone Number [facility] [address] [place] [address] * (ABNORMAL) CBC W AUTO DIFFERENTIAL (03/05/2017 11:04 AM CDT) WBC 11.1(H) 4.4 - 10.7 x10E9/L 03/05/2017 11:29 AM CDT [facility] WBC Corrected x10E9/L 03/05/2017 11:29 AM CDT [facility] RBC 3.53(L) 3.80 - 5.20 x10E12/L 03/05/2017 11:29 AM CDT [facility] Hemoglobin 9.8(L) 12.0 - 15.6 gm/dL 03/05/2017 11:29 AM CDT [facility] Hematocrit 30.1(L) 35.9 - 45.5 % 03/05/2017 11:29 AM CDT [facility] MCV 85.3 80.7 - 98.3 fl 03/05/2017 11:29 AM CDT [facility] MCH 27.8 26.7 - 34.0 pg 03/05/2017 11:29 AM CDT [facility] MCHC 32.6 30.8 - 35.9 gm/dL 03/05/2017 11:29 AM CDT [facility] Platelet Count 246 153 - 416 x10E9/L 03/05/2017 11:29 AM CDT [facility] RDW-CV 13.5 12.1 - 14.9 % 03/05/2017 11:29 AM CDT [facility] MPV 10.6 9.4 - 12.9 fl 03/05/2017 11:29 AM CDT [facility] Neutrophils % 75.0(H) 44.0 - 73.0 % 03/05/2017 11:29 AM CDT [facility] Lymphocytes % 16.5(L) 20.0 - 43.0 % 03/05/2017 11:29 AM CDT [facility] Monocytes % 6.1 5.0 - 13.0 % 03/05/2017 11:29 AM CDT [facility] Eosinophils % 0.5 0.0 - 6.0 % 03/05/2017 11:29 AM CDT [facility] Basophils % 0.3 0.0 - 2.0 % 03/05/2017 11:29 AM CDT [facility] Immature Granulocytes 1.6(H) 0 - 1 % 03/05/2017 11:29 AM CDT [facility] Neutrophil Absolute 8.33(H) 2.01 - 7.14 x10E9/L 03/05/2017 11:29 AM CDT [facility] Lymphocytes Absolute 1.83 1.07 - 3.94 x10E9/L 03/05/2017 11:29 AM CDT [facility] Monocytes Absolute 0.68 0.26 - 1.07 x10E9/L 03/05/2017 11:29 AM CDT [facility] Eosinophils Absolute 0.06 0 - 0.47 x10E9/L 03/05/2017 11:29 AM CDT [facility] Basophils Absolute 0.03 0 - 0.08 x10E9/L 03/05/2017 11:29 AM CDT [facility] Immature Granulocytes Absolute 0.18(H) 0.00 - 0.06 x10E9/L 03/05/2017 11:29 AM CDT [facility] nRBC Auto 0 /100 WBC 03/05/2017 11:29 AM CDT [facility] Blood BLOOD SPECIMEN / Unknown Collection / Unknown 03/05/2017 11:04 AM CDT 03/05/2017 11:23 AM CDT Yessenia Gonzales APRN-SUPERVISOR COLOR MAKING LAB - HEMATOLO GY ORDERABLES [facility] [address] [place] [address] documented in this encounter Visit Diagnoses Diagnosis IUGR (intrauterine growth restriction) affecting care of mother, third trimester, not applicable or unspecified fetus (HCC)- Primary Encounter for supervision of normal first in first trimester ([facility]) Supervision of normal first Gastroesophageal reflux disease without esophagitis Esophageal reflux Tachycardia Tachycardia, unspecified Encounter for maternal care for suspected poor growth in roman in third trimester ([facility])- Primary Aversion to food: limiting protein intake Feeding difficulties and mismanagement Abnormal ultrasound: dopplers elevated S/d ratio Abnormal findings on screening High-risk in third trimester ([facility]) Previous baby with growth restriction Encounter for screening ([facility]) documented in this encounter
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
--- OUTSIDE RECORDS SUMMARY | 2024-09-18 05:30 | XMS_ITS | Encounter Summary ---
Author Organization [facility] Address [facility]3 [facility] [place] [address] Care Team Providers Care Poured Concrete Wall Technician Name Role Phone Brian Velarde DO Primary Care Provider [phone] Andres Angela MD Unavailable [phone] Reason for Visit * Reason Onset Date Comments Opened In Error 03/02/2019 Encounter Details Date Type Department Care Team (Late st Contact Info) Description 03/02/2019 Telephone [facility] - Family Medicine [address] [place] [address] Brian Velarde, DO [address] [place] [phone] Opened In Error Social History Tobacco Use Types Packs/Day Years [...] st Contact Info) Description 09/19/2024 8:15 AM PULPER TENDER Hospital Encounter [facility] Maternal & Care [address] [place], [place] [id number] documented as of this encounter Visit Diagnoses Not on filedocumented in this encounter Care Teams Poured Concrete Wall Technician Relationship Specialty Start Date End Date Brian Velarde DO PCP - General Family Medicine 11/28/18 04/15/23 Andres Angela MD Psychiatry 12/16/18 documented as of this encounter
--- OUTSIDE RECORDS SUMMARY | 2024-09-18 05:30 | XMS_ITS | Encounter Summary ---
Author Organization [facility] Address [address] [place] [address] Care Team Providers Care [employer] Librarian Name Role Phone Unavailable Primary Care Provider Unavailabl e Reason for Referral * Procedure (Routine) - Closed Specialty Diagnoses / Procedures Referred By Christina t Referred To Contact Cardiology Diagnoses Tachycardia Procedures EKG 12-LEAD Yessenia Gonzales APRN-KULWINDER [address] [place] [phone] Referral ID Status Reason Start Date Expiration Date Visits Re quested Visits Authorized [id number] Closed 03/05/2017 09/01/2017 1 1 Reason for Visit * Procedure (Routine) - Closed Specialty Diagnoses / Procedures Referred By Contac adalgisa Referred To Contact Cardiology Diagnoses Tachycardia Procedures EKG 12-LEAD Yessenia Gonzales APRN-KULWINDER [address] [phone] Referral ID Status Reason Start Date Expiration Date Visits Re quested Visits Authorized [id number] Closed 03/05/2017 09/01/2017 1 1 Encounter Details Date Type Department Care Team (Latest Contact Info) Description 03/05/2017 11:25 AM CDT - 03/05/2017 11:59 PM CDT Hospital Encounter [facility] & Vascular Care [address] [place] [address] Yessenia Gonzales APRN-MANAGER INPATIENT [address] [place] [phone] Discharge Disposition: Home or Self Care Social [...] st Contact Info) Description 09/19/2024 8:15 AM [facility] Hospital Encounter [facility] Maternal & Care [address] [place] [id number] documented as of this encounter Procedures Procedure Name Priority Date/Time Associated Diagnosis Comments EKG 12-LEAD Routine 03/05/2017 11:37 AM CDT Tachycardia documented in this encounter Results * EKG 12-LEAD (03/05/2017 11:37 AM CDT) Ventricular Rate 95 BPM [facility] Atrial Rate 95 BPM [facility] P-R Interval 130 ms [facility] QRS Duration ms 74 ms [facility] Q-T Interval ms 330 ms [facility] QTC Calculation (Bezet) 414 ms [facility] Calculated P [place] 50 degrees [facility] Calculated R [place] 29 degrees [facility] Calculated T [place] 8 degrees [facility] Interpretation EKG NORMAL SINUS RHYTHM NORMAL ECG WHEN COMPARED WITH ECG OF 26-JAN-2017 15:37, NO SIGNIFICANT CHANGE WAS FOUND Confirmed by MD KELSEY, HOLLAND Cash (3) on 03/05/2017 6:51:34 PM [facility] 03/05/2017 11:3 7 AM CDT 03/05/2017 6:51 PM CDT Yessenia Gonzales BLACK TOPPER-MANAGER INPATIENT ECG ORDERABLES [facility] M[facility] documented in this encounter Visit Diagnoses Diagnosis Tachycardia Tachycardia, unspecified Encounter for maternal care for suspected poor growth in roman in third trimester ([facility])- Primary Aversion to food: limiting protein intake Feeding difficulties and mismanagement Abnormal ultrasound: dopplers elevated S/d ratio Abnormal findings on screening High-risk in third trimester (HCC) Previous baby with growth restriction Encounter for screening ([facility]) documented in this encounter
--- OUTSIDE RECORDS SUMMARY | 2024-09-18 05:30 | XMS_ITS | Encounter Summary ---
Author Organization [facility] Address [address] [place] [address] Care Team Providers Care Receiving Associate Name Role Phone Brian Velarde DO Primary Care Provider [phone] Andres Angela MD Unavailable [phone] Reason for Visit * Reason Comments Follow-up Pt here for 4 week f /u for VANDANA Encounter Details Date Type Department Care Team (Late st Contact Info) Description 12/26/2018 2:00 PM CDT Office Visit [facility] - Family Medicine [address] [place] [address] Brian Velarde DO [address] [place] [phone] Panic disorder (Primary Dx); Major depressive disorder, recurrent, moderate (HCC); Metrorrhagia Social History Tobacco Use Types Packs/Day Years [...] Sign Reading Time Taken Comments Blood Pressure 120/72 12/26/2018 1:59 PM CDT Pulse 82 12/26/2018 1:59 PM CDT Temperature - - Respiratory Rate - - Oxygen Saturation - - Inhaled Oxygen Concentration - - Weight 86.6 kg (191 lb) 12/26/2018 1:59 PM CDT Height 154.9 cm (5' 1 ) 12/26/2018 1:59 PM CDT Body Mass Index 36.09 12/26/2018 1:59 PM CDT documented in this encounter Functional [...] encounter Progress Notes * Brian Velarde, - 12/26/2018 2:03 PM CDT Office Visit, Established Patient, [id number] HISTORY: YAYA Marnie Jones is a 22 year old female patient, here for: Chief Complaint Patient presents with ??? Follow-up Pt here for 4 week f/u for VANDANA HPI: Anxiety follow-up Lots of bad dreams lately. Started about 1 week ago. Done group therapy x2, another session tomorrow. Taking zoloft as prescribed. Thinks it is helping to a certain degree but not completely Klonopin BID, never looked into alternative therapies as she wanted to previously Walking some but no other real exercise. Weight is unchanged Not sleeping well. No SI or HI She also complains of being on her period for the last 2 months. She has not been sexually active for 2-3 months. She denies any chance that she could be . She has never had anything like this before. No abdominal pain. Patient Active Problem List Diagnosis Date Noted ??? Major depressive disorder, recurrent, moderate Priority: Not Prioritized ??? Panic disorder 12/16/2018 Priority: Not Prioritized ??? Major depressive disorder, recurrent 12/16/2018 Priority: Not Prioritized ??? GBS (group B streptococcus) infection 03/07/2017 [...] and results: 09/04/16 A+/RI/ND/-/- GCT: 24-28 weeks (12/23) 110 Tdap: offer at 28 wks HIV: [...] Outpatient Prescriptions Medication Sig Dispense Refill ??? chlordiazePOXIDE (LIBRIUM) 25 MG capsule Take 25 mg by mouth ??? clonazePAM (KLONOPIN) 2 MG tablet Take [...] Date ??? NEGATIVE SURGICAL HISTORY EXAM BP 120/72 Pulse 82 Wt 86.6 kg (191 lb) BMI 36.09 kg/m2 FiO2: GEN - A&O, NAD, obese HEAD - Atraumatic, normocephalic ENMT - EOMI NECK - No anterior cervical LA HEART - RRR, no M/R/G LUNGS - No dyspnea, normal exertion, CTA B ABD - Soft, NT, ND, Normal Bowel sounds EXT - no edema SKIN - no lesions on exposed skin PSYCH - Anxious ASSESSMENT: ICD-10-CM 1. Panic disorder F41.0 2. Major depressive disorder, recurrent, moderate F33.1 3. Metrorrhagia N92.1 PLAN: Orders Placed This Encounter ??? sertraline (ZOLOFT) 100 MG tablet Sig: Take 1 tablet by mouth once daily Dispense: 30 tablet Refill: 1 ??? clonazePAM (KLONOPIN) 2 MG tablet Sig: Take 1 tab PO BID PRN anxiety Dispense: 60 tablet Refill: 0 ??? norgestimate-ethinyl estradiol (ORTHO-CYCLEN; MONONESSA; PREVIFEM; SPRINTEC) 0.25-35 MG-MCG tablet Sig: Take 3 tabs on day 1, 2 tabs on day 2, and 1 tab daily thereafter. Dispense: 1 packet Refill: 0 1. Panic disorder with major depressive disorder-will increase Zoloft to 100 mg daily in refill Klonopin. Encouraged her to try to take as little as possible. Encouraged her to begin a good exercise regimen Continue IOP and therapy sessions Follow-up in 4-6 weeks or sooner as needed 2. Metrorrhagia - will send in OCP packet. She doesn't want to be on this buttermaker. Will burst andtake for approximately 1 month to re-regulate cycles. If this is not helpful consider higher dose estrogen vs referral back to her OB. Goals None There are no discontinued medications. Return to office in 4-6 weeks. Patient instructed to call with any concerns or problems. documented in this encounter Plan of Treatment Upcoming Encounters Date Type Department Care Team (Late st Contact Info) Description 09/19/2024 8:15 AM [facility] Hospital Encounter [facility] Maternal & Care [address] [place] [id number] documented as of this encounter Visit Diagnoses Diagnosis Panic disorder- Primary Panic disorder without agoraphobia Major depressive disorder, recurrent, moderate ([facility]) Major depressive disorder, recurrent episode, moderate Metrorrhagia Encounter for maternal care for suspected poor growth in roman in third trimester ([facility])- Primary Aversion to food: limiting protein intake Feeding difficulties and mismanagement Abnormal ultrasound: dopplers elevated S/d ratio Abnormal findings on screening High-risk in third trimester ([facility]) Previous baby with growth restriction Encounter for screening ([facility]) documented in this encounter Care Teams Receiving Associate Relationship Specialty Start Date End Date Brian Velarde DO PCP - General Family Medicine 11/28/18 04/15/23 Andres Angela MD Psychiatry 12/16/18 documented as of this encounter
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
--- OUTSIDE RECORDS SUMMARY | 2024-09-18 05:30 | XMS_ITS | Encounter Summary ---
Author Organization [facility] Address [address] [facility] [place] [address] Care Team Providers Care Tire Center Manager Name Role Phone Brian Velarde DO Primary Care Provider Andres Angela MD Unavailable [phone] Reason for Visit * Reason Comments Follow-up pt is here for a fol low up. she states she has been having abdominal cramps and vaginal soreness for about a week. Medication Check pharmacy verified Encounter Details Date Type Department Care Team (Late st Contact Info) Description 04/14/2019 3:30 PM CDT Office Visit [facility] - Family Medicine [address] [place] [address] Brian Velarde, DO [address] [place] [address] Heart palpitations (Primary Dx); VANDANA (generalized anxiety disorder); Irritable bowel syndrome with constipation Social History Tobacco Use Types Packs/Day Years [...] Sign Reading Time Taken Comments Blood Pressure 124/70 04/14/2019 3:30 PM CDT Pulse 105 04/14/2019 3:30 PM CDT Temperature 35.6 ??C (96.1 ??F) 04/14/2019 3:30 PM CD T Respiratory Rate - - Oxygen Saturation 100% 04/14/2019 3:30 PM CDT Inhaled Oxygen Concentration - - Weight 83 kg (183 lb) 04/14/2019 3:30 PM CDT Height 154.9 cm (5' 1 ) 04/14/2019 3:30 PM CDT Body Mass Index 34.58 04/14/2019 3:30 PM CDT documented in this encounter Functional [...] encounter Progress Notes * Brian Velarde, - 04/20/2019 2:59 PM CDT Office Visit, Established Patient, [id number] HISTORY: CC Marnie Jones is a 23 year old female patient, here for: Chief Complaint Patient presents with ??? Follow-up pt is here for a follow up. she states she has been having abdominal cramps and vaginal soreness for about a week. ??? Medication Check pharmacy verified HPI: Mood follow up-she states she is still having problems with panic attacks. She is taking Klonopin 3times a day which is keeping things mostly under control. No SI or HI. She is still getting palpitations But she did not like the propranolol she did not feel like it was helpful and it did not help with her anxiety. She did not like the way it made her feel. She was still getting breakthrough sympt oms. She is also complaining of lower abdominal pain and constipation. She states that her mood affects her bowels. She will get some diarrhea but has mostly constipation. Patient Active Problem List Diagnosis Date Noted [...] Date ??? NEGATIVE SURGICAL HISTORY EXAM BP 124/70 Pulse 105 Temp 96.1 ??F (35.6 ??C) Wt 83 kg (183 lb) SpO2 100% BMI 34.58 kg/m2 FiO2: GEN - A&O, NAD HEAD - Atraumatic, normocephalic ENMT - EOMI NECK - No LA HEART - Borderline tachycardia but regular, no M/R/G LUNGS - No dyspnea, normal exertion, CTA B ABD - Soft, Mild tenderness which is distractible, non distended, hypoactive bowel sounds EXT - no edema SKIN - no lesions on exposed skin PSYCH - Appropriate mood and affect ASSESSMENT: ICD-10-CM 1. Heart palpitations R00.2 2. VANDANA (generalized anxiety disorder) F41.1 3. Irritable bowel syndrome with constipation K58.1 PLAN: Orders Placed This Encounter ??? escitalopram (LEXAPRO) 20 MG tablet Sig: Take 1 tablet by mouth once daily Dispense: 90 tablet Refill: 1 ??? ESTARYLLA 0.25-35 MG-MCG tablet Sig: TK 1 T PO D Dispense: 1 packet Refill: 11 ??? clonazePAM (KLONOPIN) 2 MG tablet Sig: Take 1 tablet by mouth 3 times daily as needed Take 1 tab PO BID PRN anxiety Dispense: 90 tablet Refill: 0 ??? dicyclomine (BENTYL) 10 MG capsule Sig: Take 1 capsule by mouth 4 times daily Dispense: 120 capsule Refill: 1 ??? metoprolol tartrate (LOPRESSOR) 50 MG tablet Sig: Take 1 tablet by mouth 2 times daily Dispense: 60 tablet Refill: 1 1. Heart palpitations- will stop propranolol and start her on metoprolol 50 mg twice a day. If thisis not helpful we may need to send her to Cardiology 2. Generalized anxiety disorder - she is stable right now I do not think she is optimized. Will refill her Klonopin but I do not like that she is having to take it 3 times a day currently. Adding Bentyl may help also with some of her anxiety. Will see how she responds. If she makes no changes then we may consider sending to Psychiatry 3. IBS C - will start with Bentyl as the sedating properties may be helpful. Encouraged good fiber intake, regular activity, stress management. If this is not helpful could consider Linzess Goals None Medications Discontinued During This Encounter Medication Reason ??? omeprazole (PRILOSEC) 40 MG capsule Discontinued previously ??? propranolol CR 24hr (INDERAL LA) 80 MG capsule Discontinued today ??? escitalopram (LEXAPRO) 20 MG tablet Reorder ??? ESTARYLLA 0.25-35 MG-MCG tablet Reorder ??? clonazePAM (KLONOPIN) 2 MG tablet Reorder Return to office in 3 months. Patient instructed to call with any concerns or problems. documented in this encounter Plan of Treatment Upcoming Encounters Date Type Department Care Team (Late st Contact Info) Description 09/19/2024 8:15 AM [email or web address] Hospital Encounter [facility] Maternal & Care [address] [place], [place] [id number] documented as of this encounter Visit Diagnoses Diagnosis Heart palpitations- Primary Palpitations VANDANA (generalized anxiety disorder) Generalized anxiety disorder Irritable bowel syndrome with constipation Irritable bowel syndrome Encounter for maternal care for suspected poor growth in roman in third trimester (HCC)- Primary Aversion to food: limiting protein intake Feeding difficulties and mismanagement Abnormal ultrasound: dopplers elevated S/d ratio Abnormal findings on screening High-risk in third trimester (HCC) Previous baby with growth restriction Encounter for screening ([facility]) documented in this encounter Care Teams Tire Center Manager Relationship Specialty Start Date End Date Brian Velarde DO PCP - General Family Medicine 11/28/18 04/15/23 Andres Angela MD Psychiatry 12/16/18 documented as of this encounter
--- OUTSIDE RECORDS SUMMARY | 2024-09-18 05:30 | XMS_ITS | Encounter Summary ---
Author Organization [facility] Address [facility] [place] [address] Care Team Providers Care Retail Cashier Associate Name Role Phone Brian Velarde DO Primary Care Provider [phone] Reason for Visit * Reason Onset Date Comments Med Question 11/30/2018 Encounter Details Date Type Department Care Team (Late st Contact Info) Description 11/30/2018 Telephone [facility] - Family Medicine [address] [place] [address] Brian Velarde, DO [address] [place] [facility] [place] [facility] [place] [id number] Med Question Social History Tobacco Use Types Packs/Day Years Used Date Smoking Tobacco: Former Cigarettes 0.1 2 1 09/23/2013 - 07/24/2016 Smokeless Tobacco: Never Alcohol Use Standard [...] encounter Miscellaneous Notes * Telephone Encounter - Lillian Lambert - 12/05/2018 5:11 PM CDT Pt informed. * Telephone Encounter - Brian Velarde DO - 12/05/2018 1:08 PM CDT Yes I will approve an additional 7 days as requested. * Telephone Encounter - Ramona Hooper - 12/05/2018 12:39 PM CDT Patient called says she has been off on leave for some time now and want to know if she can take time out again and seek counseling or psychiatrist. * Telephone Encounter - Franc Lee - 12/05/2018 10:45 AM CDT Who is calling? self What is the reason for call? Requesting physician response on whether he will approve for her to beoff of work for 7 days to receive social assistance. Expected Response from the Clinic? Call back * Telephone Encounter - Lawanda Park - 12/02/2018 10:35 AM CDT Called pt LVM for her to call the office back Dr Santos need the exat dates when she going to beoff and when she is returning to work * Telephone Encounter - Michelle Wilson - 12/01/2018 1:58 PM CDT Left message for pt to call office back for response per PCP. * Telephone Encounter - Michelle Wilson - 12/01/2018 1:34 PM CDT Attempted to call given number twice. Each time was a busy tone. Unable to leave message. * Telephone Encounter - Brian Velarde DO - 12/01/2018 1:01 PM CDT I am ok with her being on leave until that time. I just need to know the exact date she will do that and when she would then return to work. As I told her in the office, I don't give xanax chronically. We can try a different medication called ativan if klonopin doesn't work but she would need to bring the remaining klonopin to the office to be disposed of (sharps container). * Telephone Encounter - Ramona Hooper - 11/30/2018 2:35 PM CDT Patient called says she don't like the way the clonazePAM (KLONOPIN) 2 MG tablet - makes her feel at work- she really drowsy. Patient wanted to go back on generic XANAX. Also patient's employer asked patient if PCP wants her to go back out on LEAVE until she sees EAPcounselor/psychiatrist for anxiety. documented in this encounter Plan of Treatment Upcoming Encounters Date Type Department Care Team (Late st Contact Info) Description 09/19/2024 8:15 AM REAL ESTATE INVESTMENT ANALYST Hospital Encounter [facility] Maternal & Care [address] [place], [place] [id number] documented as of this encounter Visit Diagnoses Not on filedocumented in this encounter Care Teams Retail Cashier Associate Relationship Specialty Start Date End Date Brian Velarde DO PCP - General Family Medicine 11/28/18 04/15/23 documented as of this encounter
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
--- OUTSIDE RECORDS SUMMARY | 2024-09-18 05:30 | XMS_ITS | Encounter Summary ---
Author Organization [facility] Address [address] [place] [address] Care Team Providers Care Electronic Components Assembler Name Role Phone Unavailable Primary Care Provider Unavailabl e Reason for Visit * Reason Comments Ultrasound Encounter Details Date Type Department Care Team (Late st Contact Info) Description 03/05/2017 10:02 AM CDT - 03/05/2017 11:24 AM CDT Hospital Encounter [facility]/ EVALUATION UNIT [address] [address] [place] [address] Ignacia Roca MD [address] [facility] [address] [address] [place] [address] Discharge Disposition: Home or Self Care Social [...] st Contact Info) Description 09/19/2024 8:15 AM [facility] Hospital Encounter [facility] Maternal & Care [address] [place], [place] [id number] Scheduled Orders Name Type Priority Associated Diagnoses Orde r Schedule MFM BIOPHYSICAL PROFILE W NST MATRNL MED Routine Uterine size date discrepancy , third trimester (HCC) 1 Occurrences starting 03/05/2017 until 03/05/2017 documented as of this encounter Visit Diagnoses Diagnosis Uterine size date discrepancy , third trimester (HCC) Encounter for maternal care for suspected poor growth in roman in third trimester ([facility])- Primary Aversion to food: limiting protein intake Feeding difficulties and mismanagement Abnormal ultrasound: dopplers elevated S/d ratio Abnormal findings on screening High-risk in third trimester ([facility]) Previous baby with growth restriction Encounter for screening ([facility]) documented in this encounter
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
--- OUTSIDE RECORDS SUMMARY | 2024-09-18 05:30 | XMS_ITS | Encounter Summary ---
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 2.01 - 7.14 x10E9/L 03/11/2017 6:[address] [facility] Lymphocytes Absolute 2.51 1.07 - 3.94 x10E9/L 03/11/2017 6:[address] [facility] Monocytes Absolute 1.40(H) 0.26 - 1.07 x10E9/L 03/11/2017 6:[address] [facility] Eosinophils Absolute 0.01 0 - 0.47 x10E9/L 03/11/2017 6:[address] [facility] Basophils Absolute 0.04 0 - 0.08 x10E9/L 03/11/2017 6:[address] [facility] Immature Granulocytes Absolute 0.32(H) 0.00 - 0.06 x10E9/L 03/11/2017 6:[address] [facility] nRBC Auto 0 /100 WBC 03/11/2017 6:[address] [facility] Blood BLOOD SPECIMEN / Unknown Lab Venipuncture / Unknown 03/11/2017 5:38 AM CDT 03/11/2017 6:10 AM CDT Aguilar Adhikari MD LAB - HEMATOLOGY ORD ERABLES Performing Organization Address [facility] Co de Phone Number [facility] [address] [phone] * (ABNORMAL) BLOOD GASES CORD LYDIA (ISTAT) (03/10/2017 9:37 AM CDT) pH Cord Venous POCT 7.27(L) 7.28 - 7.40 pH 03/10/2017 9:57 AM CDT [facility] pCO2 Cord Venous POCT 49(H) 35 - 45 mmHg 03/10/2017 9:57 AM CDT [facility] pO2 Cord Venous POCT 17(L) 22 - 33 mmHg 03/10/2017 9:57 AM CDT [facility] HCO3 Cord Arterial POCT 23 22 - 24 mmol/L 03/10/2017 9:57 AM CDT [facility] BE Cord Venous POCT Calc -5 -6.4 - 1.6 mmol/L 03/10/2017 9:57 AM CDT [facility] TCO2 Cord Venous POCT 24 22 - 30 mmol/L 03/10/2017 9:57 AM CDT [facility] O2 Saturation % Cord Venous Calc POCT 20 % 03/10/2017 9:57 AM CDT [facility] Site CORD LYDIA 03/10/2017 9:57 AM CDT [facility] Sample iSTAT CORD V 03/10/2017 9:57 AM CDT [facility] Blood CORD BLOOD SPECIMEN / Unknown 03/10/2017 9:37 AM CDT 03/10/2017 9:57 AM CDT Osorio Hall MD LAB - POINT OF CARE ORDERABLES Performing Organization Address [facility]/ZIP Co de Phone Number [facility] [address] [place] [address] * GROSS + MICRO EXAM (STL) (03/10/2017 9:35 AM CDT) Case Report Surgical Pathology Report ? Case: [id number] ? Authorizing Provider: ??Meenakshi Willett MD ?Collected: ? 03/10/2017 09:35 AM ? Ordering Location: ? [facility] 5 LD ? Received: ?03/11/2017 07:29 AM ? Pathologist: ? Mc Roa MD ? Specimen: ?Placenta ? 03/12/2017 1:[address] [facility] Final Diagnosis 1. Placenta: -- Third trimester placenta, 550 grams -- Three-vessel umbilical cord with no pathologic changes -- Chorioamniotic membranes with no pathologic diagnosis /MC/ns 03/12/2017 1:[address] [facility] Gross Description The specimen is fixed in formalin in one container labeled Hanny Murphy and placenta consists of 550 gram, [...] parenchyma with no thrombi, necrosis or infarction. Audio Visual Design Engineer sections are submitted as follows: A1 - umbilical cord and membranes A2/A3 - placental parenchyma /bijan 03/12/2017 1:37 PM CDT [facility] Microscopic Description Microscopic examination reveals a three-vessel umbilical cord showing no evidence of funisitis or thrombosis. The chorioamniotic membranes show no evidence of inflammation and meconium is not identified. The chorionic villi are small, mature, and well vascularized with no evidence of villitis or infarction. The decidua basalis and chorionic plate show no pathologic changes. FLORENTIN/REYNA/lisbet 03/12/2017 1:37 PM CDT [facility] Disclaimer All histochemical and/or immunohistochemical results are interpreted with controls that demonstrate appropriate staining reactions before reporting results. Note on use of immunocytochemistry reagents: This test was developed and its performance characteristic determined by [facility], Department of Laboratory Medicine. It has not been cleared or approved by the U.S. Food and Drug Administration (FDA). The FDA has determined that such clearance or approval is not necessary. The test is used for clinical purpose. It should not be regarded as investigational or for research. This laboratory is certified to perform high complexity testing. 03/12/2017 1:37 PM CDT [facility] Embedded Images 03/12/2017 1:37 PM CDT [facility] Pathology/Cytolo gy ENTIRE PLACENTA / Unknown 03/10/2017 9:35 AM CDT 03/11/2017 7:29 AM CDT Meenakshi Willett MD LAB - PATHOLOGY/CYTO LOGY ORDERABLES [facility] [address] [place] [address] * (ABNORMAL) BLOOD GASES CORD ART (ISTAT) (03/10/2017 9:33 AM CDT) pH Cord Arterial POCT 7.25 7.20 - 7.34 pH 03/10/2017 9:57 AM CDT [facility] pCO2 Cord Arterial POCT 53.3 45 - 55 mmHg 03/10/2017 9:57 AM CDT [facility] pO2 Cord Arterial POCT 19 12 - 25 mmHg 03/10/2017 9:57 AM CDT [facility] HCO3 Cord Arterial POCT 23.6 22 - 24 mmol/L 03/10/2017 9:57 AM CDT [facility] BE Cord Arterial POCT -4(L) -2.9 - 8.3 mmol/L 03/10/2017 9:57 AM CDT [facility] TCO2 Cord Arterial POCT 25 mmol/L 03/10/2017 9:57 AM CDT [facility] O2 Saturation Cord Art % Calc POCT 23 % 03/10/2017 9:57 AM CDT [facility] Site CORD ART 03/10/2017 9:57 AM CDT [facility] Sample iSTAT CORD A 03/10/2017 9:57 AM CDT [facility] Blood CORD BLOOD SPECIMEN / Unknown 03/10/2017 9:33 AM CDT 03/10/2017 9:57 AM CDT Osorio Hall MD LAB - POINT OF CARE ORDERABLES Performing Organization Address City/State/[facility] Co de Phone Number [facility] [address] [place] [address] * SONOGRAM - COMPLETE (03/08/2017 10:17 AM CDT) Anatomical Region Laterality Modality Other 03/08/2017 10:1 7 AM CDT Narrative 03/08/2017 4:40 PM CDT ?[facility] [place] [facility] ?PHONE: ??FAX: Pat. Name: ?JEFFREYMEHULLinnea Moffett. No: ?[id number] Study Date: ?? 03/08/2017 ??10:17am , Age: ? 1995, 21 Pregnancies: ?? 1 Height: ? 61 in Weight: ? 140 lb LMP: ?06/26/2016 GA by LMP: ?36w3d GA by 1st: ?36w3d GA Selected: ??36w3d (From First S) WILLIE: ?04/02/2017 Referring MD: Eliazar, , [facility] Wastewater Project Manager: ??Ortiz Gonzalez, RDMS CPT4: ? 77043, [id number] Hist/Ind: ? IUGR, Abnormal Dopplers Previously ?Previous Trama on 02/17/2017 ?Placental Evaluation for pain Heart Rate: 148 bpm Amniotic Fluid Index: 15.7cm (07.6-24.7) Q1: 5.2cm ??Q2: 4.6cm ??Q3: 4.1cm ??Q4: 1.8cm ?? Biophysical Profile: 04/27 Breathin ?? Tone: 2 ?? Movement: ??2 ?? AFV: ??2 CLINICAL SUMMARY Study Number: 11 A single fetus is identified in vertex presentation. ??The placenta is anterior. ??The amniotic fluid volume is within normal limits. The amniotic fluid index is 15.69 cm TESTING The Biophysical profile score is 8/8. IMPRESSION: Single, live vertex IUP, at 36w3d Normal amniotic fluid volume Grade 2-3 placenta without any sonographic evidence of placental abnormality RECOMMEND: Follow up ultrasound as clinically indicated. Thanks for allowing us the opportunity to care for your patient. cc: ??Inpatient at time of study ? Jonh Ventura MD ?<Electronic Signature> ??03/08/2017 04:40pm Emili Wells MD [facility] ORDERABLES * DRUG SCREEN TOX URINE PANEL (03/07/2017 5:33 PM CDT) Pathologist [facility] Amphetamines Screen Urine Not Detected Not Detected 03/07/2017 6:13 PM CDT [facility] Barbiturates Screen Urine Not Detected Not Detected 03/07/2017 6:13 PM CDT [facility] Benzodiazepines Screen Urine Not Detected Not Detected 03/07/2017 6:13 PM CDT [facility] Cannabinoids Screen Urine Not Detected Not Detected 03/07/2017 6:13 PM CDT [facility] Cocaine Screen Urine Not Detected Not Detected 03/07/2017 6:13 PM CDT [facility] Methadone Screen Urine Not Detected Not Detected 03/07/2017 6:13 PM CDT [facility] Opiate Screen Urine Not Detected Not Detected 03/07/2017 6:13 PM CDT [facility] Phencyclidine Screen Urine Not Detected Not Detected 03/07/2017 6:13 PM CDT [facility] Urine URINE / Unknown 03/07/2017 5 :33 PM CDT 03/07/2017 5:59 PM CDT Narrative [facility] - 03/07/2017 6:13 PM CDT This drug screen is designed for [...] ?300 ng/mL OPIATES ?300 ng/mL PHENCYCLIDINE(PCP)25 ng/mL Jesse Reeder MD LAB - URINE CHEMISTR Y ORDERABLES Performing Organization Address [facility]/State/[facility] Co de Phone Number [facility] [address] [place] [address] * (ABNORMAL) URINALYSIS ROUTINE AUTO (03/07/2017 5:33 PM CDT) Color UA Yellow Straw, Yellow, Dark Yellow 03/07/2017 5:51 PM CDT [facility] Clarity UA Clear 03/07/2017 5:51 PM CDT [facility] Specific Singer UA 1.010 1.005 - 1.030 03/07/2017 5:51 PM CDT [facility] pH UA 7.0 5.0 - 8.0 pH 03/07/2017 5:51 PM CDT [facility] Protein UA Negative Negative 03/07/2017 5:51 PM CDT [facility] Blood UA Negative Negative 03/07/2017 5:51 PM CDT [facility] Leukocyte UA 2+(A) Negative 03/07/2017 5:51 PM CDT [facility] Nitrite UA Negative Negative 03/07/2017 5:51 PM CDT [facility] Glucose UA Negative Negative 03/07/2017 5:51 PM CDT [facility] Ketone UA Negative Negative 03/07/2017 5:51 PM CDT [facility] Bilirubin UA Negative Negative 03/07/2017 5:51 PM CDT [facility] Urobilinogen UA 0.2 0.1 - 1.0 EU/dL 03/07/2017 5:51 PM CDT [facility] WBC UA Auto 2-5 0-2, 2-5 # /hpf 03/07/2017 5:51 PM CDT [facility] RBC UA Auto 2-5 0-2, 2-5 # /hpf 03/07/2017 5:51 PM CDT [facility] Epithelial Cell UA Auto 5-10(A) 0-2, 2-5 # /hpf 03/07/2017 5:51 PM CDT [facility] Bacteria UA Auto 1+(A) None seen 03/07/20 17 5:51 PM CDT [facility] Urine URINE SPECIMEN OBTAINED BY CLEAN CATCH PROCEDURE / Unknown Collection / Unknown 03/07/2017 5:33 PM CDT 03/07/2017 5:38 PM CDT Yolette Peters MD LAB - URINALYSIS OR DERABLES Performing Organization Address City/[facility]/ZIP Co de Phone Number [facility] [address] [place] [address] * CULTURE URINE (03/07/2017 5:33 PM CDT) Culture 10,000-50,000 CFU/mL urogenital anjelica CHELA 03/09/2017 3:03 PM CDT [facility] Urine URINE SPECIMEN OBTAINED BY CLEAN CATCH PROCEDURE / Unknown Collection / Unknown 03/07/2017 5:33 PM CDT 03/07/2017 5:38 PM CDT Yolette Peters MD LAB - MICROBIOLOGY ORDERABLES [facility] [address] [place] [phone] * (ABNORMAL) FIBRINOGEN ACTIVITY (03/07/2017 5:33 PM CDT) Fibrinogen 500(H) 200 - 400 mg/dL 03/07/2017 5:57 PM CDT [facility] Blood BLOOD SPECIMEN / Unknown Venipuncture / Unknown 03/07/2017 5:33 PM CDT 03/07/2017 5:38 PM CDT Yolette Peters MD LAB - COAGULATION O JEN Performing Organization Address [facility] Co de Phone Number [facility] [address], [place] [phone] * PT PTT PANEL (03/07/2017 5:33 PM CDT) PT 9.6 9.5 - 11.6 sec 03/07/2017 5:57 PM CDT [facility] INR 0.9 0.9 - 1.1 03/07/2017 5:57 PM CDT [facility] PTT 22.4 21.0 - 32.0 sec 03/07/2017 5:57 PM CDT [facility] Blood BLOOD SPECIMEN / Unknown Venipuncture / Unknown 03/07/2017 5:33 PM CDT 03/07/2017 5:38 PM CDT Narrative [facility] - 03/07/2017 5:57 PM CDT Conventional Warfarin Anticoagulant Therapy: INR Reference Range: ??2.0-3.0 Intensive Warfarin Anticoagulant Therapy: INR Reference Range: ? 2.5-3.5 Heparin Therapeutic Range for PTT: 47.7 - 68.6 seconds. Yolette Peters MD LAB - COAGULATION Kiel LI Performing Organization Address [facility] Co de Phone Number [facility] [address] [place] [phone] * (ABNORMAL) COMPREHENSIVE METABOLIC PANEL (03/07/2017 5:33 PM CDT) Glucose 96 74 - 106 mg/dL 03/07/2017 6:05 PM CDT [facility] Sodium 139 136 - 145 mmol/L 03/07/2017 6:05 PM CDT [facility] Potassium 3.4(L) 3.5 - 5.1 mmol/L 03/07/2017 6:05 PM CDT [facility] Chloride 109(H) 98 - 107 mmol/L 03/07/2017 6:05 PM CDT [facility] CO2 23 22 - 31 mmol/L 03/07/2017 6:05 PM CDT [facility] Calcium 8.5 8.5 - 10.1 mg/dL 03/07/2017 6:05 PM CDT [facility] Anion Gap 7(L) 8 - 16 mmol/L 03/07/2017 6:05 PM CDT [facility] BUN 4(L) 7 - 21 mg/dL 03/07/2017 6:05 PM CDT [facility] Creatinine 0.54 0.50 - 1.30 mg/dL 03/07/2017 6:05 PM CDT [facility] Alkaline Phosphatase 160(H) 38 - 126 U/L 03/07/2017 6:05 PM CDT [facility] ALT 10(L) 13 - 61 U/L 03/07/2017 6:05 PM CDT [facility] AST 8 5 - 40 U/L 03/07/2017 6:05 PM CDT [facility] Protein Total 6.9 6.4 - 8.2 gm/dL 03/07/2017 6:05 PM CDT [facility] Albumin 2.7(L) 3.4 - 5.0 gm/dL 03/07/2017 6:05 PM CDT [facility] Bilirubin Total 0.2 0.2 - 1.0 mg/dL 03/07/2017 6:05 PM CDT [facility] eGFR by MDRD >60 >60 mL/min/1.7 3m2 03/07/2017 6:05 PM CDT [facility] eGFR by MDRD >60 >60 mL/min/1.7 3m2 03/07/2017 6:05 PM CDT [facility] Blood BLOOD SPECIMEN / Unknown Venipuncture / Unknown 03/07/2017 5:33 PM CDT 03/07/2017 5:38 PM CDT Yolette Peters MD LAB - CHEMISTRY ORD ERABLES [facility] [address] [place] [address] * (ABNORMAL) CBC W AUTO DIFFERENTIAL (03/07/2017 5:33 PM CDT) WBC 11.5(H) 4.4 - 10.7 x10E9/L 03/07/2017 5:46 PM CDT [facility] WBC Corrected x10E9/L 03/07/2017 5:46 PM CDT [facility] RBC 3.68(L) 3.80 - 5.20 x10E12/L 03/07/2017 5:46 PM CDT [facility] Hemoglobin 10.4(L) 12.0 - 15.6 gm/dL 03/07/2017 5:46 PM CDT [facility] Hematocrit 31.1(L) 35.9 - 45.5 % 03/07/2017 5:46 PM CDT [facility] MCV 84.5 80.7 - 98.3 fl 03/07/2017 5:46 PM CDT [facility] MCH 28.3 26.7 - 34.0 pg 03/07/2017 5:46 PM CDT [facility] MCHC 33.4 30.8 - 35.9 gm/dL 03/07/2017 5:[address] [facility] Platelet Count 267 153 - 416 x10E9/L 03/07/2017 [facility] RDW-CV 13.5 12.1 - 14.9 % 03/07/2017 5:46 PM CDT [facility] MPV 10.4 9.4 - 12.9 fl 03/07/2017 5:46 PM CDT [facility] Neutrophils % 72.3 44.0 - 73.0 % 03/07/2017 5:46 PM CDT [facility] Lymphocytes % 17.5(L) 20.0 - 43.0 % 03/07/2017 5:46 PM CDT [facility] Monocytes % 6.7 5.0 - 13.0 % 03/07/2017 5:46 PM CDT [facility] Eosinophils % 1.9 0.0 - 6.0 % 03/07/2017 5:46 PM CDT [facility] Basophils % 0.3 0.0 - 2.0 % 03/07/2017 5:46 PM CDT [facility] Immature Granulocytes 1.3(H) 0 - 1 % 03/07/2017 5:46 PM CDT [facility] Neutrophil Absolute 8.32(H) 2.01 - 7.14 x10E9/L 03/07/2017 5:46 PM CDT [facility] Lymphocytes Absolute 2.01 1.07 - 3.94 x10E9/L 03/07/2017 5:46 PM CDT [facility] Monocytes Absolute 0.77 0.26 - 1.07 x10E9/L 03/07/2017 5:46 PM CDT [facility] Eosinophils Absolute 0.22 0 - 0.47 x10E9/L 03/07/2017 5:46 PM CDT [facility] Basophils Absolute 0.03 0 - 0.08 x10E9/L 03/07/2017 5:46 PM CDT [facility] Immature Granulocytes Absolute 0.15(H) 0.00 - 0.06 x10E9/L 03/07/2017 5:46 PM CDT [facility] nRBC Auto 0 /100 WBC 03/07/2017 5:46 PM CDT [facility] Blood BLOOD SPECIMEN / Unknown Venipuncture / Unknown 03/07/2017 5:33 PM CDT 03/07/2017 5:38 PM CDT Yolette Peters MD LAB - HEMATOLOGY OR DERABLES Performing Organization Address City/[facility] Co de Phone Number [facility] [address] [place] [address] * TYPE + SCREEN PANEL (03/07/2017 5:33 PM CDT) ABO A 03/07/2017 6:45 PM CDT [facility] Rh Type Positive 03/07/2017 6:45 PM CDT [facility] Comment:History check perfor med. No retype required. Antibody Screen Negative 03/07/2017 6:45 PM CDT [facility] Blood Bank BLOOD SPECIMEN / Unknown Venipuncture / Unknown 03/07/2017 5:33 PM CDT 03/07/2017 5:39 PM CDT Yolette Peters MD LAB - BLOOD BANK OR DERABLES Performing Organization Address City/[facility] Co de Phone Number [facility] [address] documented in this encounter Visit Diagnoses Diagnosis IUGR (intrauterine growth restriction) affecting care of mother, third trimester, not applicable or unspecified fetus (HCC)- Primary Encounter for supervision of normal first in first trimester ([facility]) Supervision of normal first Encounter for maternal care for suspected poor growth in roman in third trimester ([facility])- Primary Aversion to food: limiting protein intake Feeding difficulties and mismanagement Abnormal ultrasound: dopplers elevated S/d ratio Abnormal findings on screening High-risk in third trimester ([facility]) Previous baby with growth restriction Encounter for screening ([facility]) documented in this encounter Administered Medications Inactive Administered Medications - up to 3 most recent administrations Medication Order MAR Action Action Date Dose Rate Site 0.9% NaCl injection 10 mL 10 mL, Intracatheter, EVERY 8 HOURS, First dose on Wed03/08/17 at 0600, Until Discontinued $ Given 03/09/2017 2:53 PM CDT 10 mL $ Given 03/09/2017 5:21 AM CDT 10 mL $ Given 03/08/2017 8:26 PM CDT 10 mL 0.9% NaCl injection 3 mL 3 mL, Intracatheter, EVERY 8 HOURS, First dose on Wed03/10/17 at 1400, Until Discontinued, $ Given 03/11/2017 5:36 AM CDT 3 mL $ Given 03/10/2017 10:08 PM CDT 3 mL $ Given 03/10/2017 1:57 PM CDT 3 mL acetaminophen (TYLENOL) tablet 650 mg 650 mg, Oral, EVERY 6 HOURS PRN, Mild Pain, Starting on Wed03/07/17 at 1719, Until Wed03/09/17 at 1900 $ Given 03/08/2017 11:32 AM CDT 650 mg $ Given 03/07/2017 8:27 PM CDT 650 mg betamethasone acet & sod phos (CELESTONE) injection 12 mg 12 mg, Intramuscular, EVERY 24 HOURS, 2 doses, First dose on Wed03/08/17 at 1645, Last dose on Wed03/09/17 at 1645, Protect from light. $ Given 03/09/2017 4:45 PM CDT 12 mg Abdominal Tissue $ Given 03/08/2017 4:40 PM CDT 12 mg Le ft Ventrogluteal butorphanol (STADOL) injection 2 mg 2 mg, Intravenous, ONCE, 1 dose, On Wed03/10/17 at 0215 $ Given 03/10/2017 2:08 AM CDT 2 mg cyclobenzaprine (FLEXERIL) tablet 10 mg 10 mg, Oral, ONCE, 1 dose, On Wed03/07/17 at 2345 $ Given 03/07/2017 11:38 PM CDT 10 mg docusate sodium (COLACE) capsule 100 mg 100 mg, Oral, 2 TIMES DAILY, First dose on Wed03/07/17 at 2100, Until Discontinued $ Given 03/09/2017 10:29 AM CDT 100 mg $ Given 03/08/2017 8:25 PM CDT 100 mg $ Given 03/08/2017 8:41 AM CDT 100 mg docusate sodium (COLACE) capsule 100 mg 100 mg, Oral, 2 TIMES DAILY, First dose on Wed03/10/17 at 1230, Until Discontinued, $ Given 03/12/2017 12:35 PM CDT 100 mg $ Given 03/11/2017 7:38 PM CDT 100 mg $ Given 03/11/2017 11:33 AM CDT 100 mg famotidine (PEPCID) tablet 20 mg 20 mg, Oral, 2 TIMES DAILY, First dose on Wed03/09/17 at 0530, Until Discontinued $ Given 03/11/2017 7:38 PM CDT 20 m g $ Given 03/11/2017 11:33 AM CDT 20 mg $ Given 03/10/2017 9:22 PM CDT 20 mg fentaNYL (PF) (SUBLIMAZE) injection 100 mcg 100 mcg, Intravenous, ONCE, 1 dose, On Wed03/10/17 at 0100 $ Given 03/10/2017 12:50 AM CDT 100 mcg GI Cocktail 40 mL, Oral, ONCE, 1 dose, On Wed03/08/17 at 0800 $ Given 03/08/2017 8:39 AM CDT 40 mL ibuprofen (MOTRIN) tablet 600 mg 600 mg, Oral, EVERY 6 HOURS, First dose on Wed03/10/17 at 1100, Until Discontinued, Maximum allowable amount = 3200 mg / 24 hours., $ Given 03/12/2017 12:35 PM CDT 600 mg $ Given 03/12/2017 6:16 AM CDT 600 mg $ Given 03/11/2017 11:09 PM CDT 600 mg iron polysaccharides (NIFEREX 150) capsule 150 mg 150 mg, Oral, DAILY, First dose on Wed03/07/17 at 1800, Until Discontinued $ Given 03/09/2017 10:29 AM CDT 150 mg $ Given 03/08/2017 8:41 AM CDT 150 mg $ Given 03/07/2017 8:33 PM CDT 150 mg iron polysaccharides (NIFEREX 150) capsule 150 mg 150 mg, Oral, 2 times daily ( and 1999), First dose (after last modification) on Ruby 03/11/17 at 0900, Until Discontinued, $ Given 03/12/2017 12:35 PM CDT 150 mg $ Given 03/11/2017 7:38 PM CDT 150 mg $ Given 03/11/2017 11:33 AM CDT 150 mg lactated ringers infusion at 125 mL/hr, Intravenous, CONTINUOUS, Starting on Wed03/09/17 at 1930, Until Wed03/10/17 at 1215, Start IV with 18 gauge angiocath. $ Bolus New Bag 03/10/2017 5:42 AM CDT 125 mL/h r Bolus Current Bag/Med 03/10/2017 4:30 AM CDT 12 5 mL/hr $ New Bag/Syringe 03/09/2017 7:40 PM CDT 125 mL /hr lanolin (LANOLIN) ointment Topical, PRN, Sore or cracked nipples., Starting on Wed03/10/17 at 1215, Until Wed03/12/17 at 1636, Apply purified Lanolin to sore or cracked nipples, if needed. May keep at bedside., $ Given 03/12/2017 12:35 PM CDT $ Given 03/11/2017 7:34 PM CDT meclizine (ANTIVERT) tablet 25 mg 25 mg, Oral, 3 TIMES DAILY PRN, Dizziness, Starting on Wed03/07/17 at 1722, Until Wed03/12/17 at 1636 $ Given 03/08/2017 11:32 AM CDT 25 mg $ Given 03/07/2017 6:36 PM CDT 25 mg miSOPROStol (CYTOTEC) tablet 25 mcg 25 mcg, Vaginal, ONCE, 1 dose, On Wed03/09/17 at 1945 $ Given 03/09/2017 7:37 PM CDT 25 mcg ondansetron (ZOFRAN) injection 4 mg 4 mg, Intravenous, EVERY 6 HOURS PRN, Nausea/Vomiting, Starting on Wed03/09/17 at 1900, Until Wed03/10/17 at 1215 $ Given 03/10/2017 11:50 AM CDT 4 mg oxytocin (PITOCIN) 30 units in 500 ml normal saline IV solution 125-1,000 lilibeth-units/min (125-1,000 mL/hr), Intravenous, CONTINUOUS PRN, , Starting on Wed03/09/17 at 1900, Until Wed03/10/17 at 1215, Infuse first bag POST-DELIVERY at 1,000 lilibeth-units/min, then decrease rate to 125 lilibeth-units/min until discontinued. ADMINISTER AFTER THE ANTERIOR SHOULDER OR WITH DELIVERY OF THE PLACENTA. $ New Bag/Syringe 03/10/2017 10:15 AM CDT 125 lilibeth-units/min 125 mL/hr $ Bolus New Bag 03/10/2017 9:35 AM CDT 1,000 lilibeth-units/m in 1000 mL/hr penicillin G pot in dextrose IVPB 3 Million Units 50 mL 3 Million Units, at 100 mL/hr, Intravenous, EVERY 4 HOURS, First dose on Wed03/09/17 at 2315, Until Discontinued $ Given 03/10/2017 7:19 AM CDT 3 Million Units 100 mL/hr $ Given 03/10/2017 3:07 AM CDT 3 Million Units 100 mL/h r $ Given 03/09/2017 11:45 PM CDT 3 Million Units 100 mL/ hr penicillin G potassium 5 Million Units in 0.9% NaCl 100 mL IVPB 5 Million Units, at 200 mL/hr, Intravenous, ONCE, 1 dose, On Wed03/09/17 at 1915 $ Given 03/09/2017 7:39 PM CDT 5 Million Units 200 mL/hr vitamin with iron tablet 1 Tab 1 tablet, Oral, DAILY, First dose on Wed03/07/17 at 1800, Until Discontinued $ Given 03/09/2017 10:30 AM CDT 1 tablet $ Given 03/08/2017 8:41 AM CDT 1 tablet $ Given 03/07/2017 8:33 PM CDT 1 tablet vitamin with iron tablet 1 Tab 1 tablet, Oral, DAILY, First dose on Wed03/10/17 at 1230, Until Discontinued, $ Given 03/12/2017 12:35 PM CDT 1 tablet $ Given 03/11/2017 11:33 AM CDT 1 tablet simethicone (MYLICON) chew tablet 160 mg 160 mg, Oral, QID PRN (after meals and at bedtime), Gas Pain, Starting on Wed03/07/17 at 1720, Until Wed03/09/17 at 1900 $ Given 03/08/2017 8:35 PM CDT 160 mg documented in this encounter Active and Recently Administered Medications Times are shown in CDT. Scheduled Medication Order 03/10/2017 03/11/2017 03/12/2017 0.9% NaCl injection 3 mL (CANCELED) 3 mL, Intracatheter, EVERY 8 HOURS, First dose on Wed03/10/17 at 1400, Until Discontinued, 1357 ($ Given - Provider: Elma Sanz RN)2208 ($ Given - Provider: Rut Chapman LPN) 0536 ($ Given - Provider: Rut Chapman LPN) butorphanol (STADOL) injection 2 mg (COMPLETED) 2 mg, Intravenous, ONCE, 1 dose, On Wed03/10/17 at 0215 0208 ($ Given - Provider: Renetta Montero RN) docusate sodium (COLACE) capsule 100 mg 100 mg, Oral, 2 TIMES DAILY, First dose on Wed03/10/17 at 1230, Until Discontinued, 1230 (Not Administered - Provider: Elma Sanz RN - Reason: Patient Condition)2121 ($ Given - Provider: Rut Chapman LPN) 1133 ($ Given - Provider: Sheila Schwab RN - Comment: Pt eating breakfast late)1937 ($ Given - Provider: Rut Chapman LPN) 1235 ($ Given - Provider: Rut Walls RN) famotidine (PEPCID) tablet 20 mg 20 mg, Oral, 2 TIMES DAILY, First dose on Wed03/09/17 at 0530, Until Discontinued 0900 (Not Administered - Provider: Sheila Borjas RN - Reason: Patient Condition)2121 ($ Given - Provider: Rut Chapman LPN) 1133 ($ Given - Provider: Sheila Schwab RN - Comment: Pt eating breakfast late)193 ($ Given - Provider: Rut Chapman LPN) 0900 (Not Administered - Provider: Rut Walls RN - Reason: Refused-Patient) fentaNYL (PF) (SUBLIMAZE) injection 100 mcg (COMPLETED) 100 mcg, Intravenous, ONCE, 1 dose, On Wed03/10/17 at 0100 0050 ($ Given - Provider: Renetta Montero RN) ibuprofen (MOTRIN) tablet 600 mg 600 mg, Oral, EVERY 6 HOURS, First dose on Wed03/10/17 at 1100, Until Discontinued, Maximum allowable amount = 3200 mg / 24 hours., 1100 (Not Administered - Provider: Sheila Borjas RN - Reason: Refused-Patient)1618 ($ Given - Provider: Elma Sanz RN)2208 ($ Given - Provider: Rut Chapman LPN) 0348 ($ Given - Provider: Rut Chapman LPN)1139 ($ Given - Provider: Sheila Schwab RN)1704 ($ Given - Provider: Jane Harmon RN)2309 ($ Given - Provider: Rut Chapman LPN) 0616 ($ Given - Provider: Rut Chapman LPN)1235 ($ Given - Provider: Rut Walls RN) iron polysaccharides (NIFEREX 150) capsule 150 mg 150 mg, Oral, 2 times daily ( and 1999), First dose (after last modification) on Wed03/11/17 at 0900, Until Discontinued, 1133 ($ Given - Provider: Sheila Schwab RN - Comment: Pt eating breakfast late)1938 ($ Given - Provider: Rut Chapman LPN) 1235 ($ Given - Provider: Rut Walls RN) penicillin G pot in dextrose IVPB 3 Million Units 50 mL (CANCELED)(Linked Group 1) 3 Million Units, at 100 mL/hr, Intravenous, EVERY 4 HOURS, First dose on Wed03/09/17 at 2315, Until Discontinued 0020 (Rx Stopped - Provider: Renetta Montero RN)0307 ($ Given - Provider: Renetta Montero RN)0337 (Rx Stopped - Provider: Renetta Montero RN)0719 ($ Given - Provider: Sheila Borjas, RN)0749 (Rx Stopped - Provider: Sheila Borjas, CL)1115 (Not Administered - Provider: Sheila Borjas RN - Reason: Discontinued by physician) vitamin with iron tablet 1 Tab 1 tablet, Oral, DAILY, First dose on Wed03/10/17 at 1230, Until Discontinued, 1230 (Not Administered - Provider: Elma Sanz RN - Reason: Patient Condition) 1133 ($ Given - Provider: Sheila Schwab RN - Comment: Pt eating breakfast late) 1235 ($ Given - Provider: Rut Walls RN) Continuous Medication Order 03/10/2017 03/11/2017 03/12/2017 lactated ringers infusion (CANCELED) at 125 mL/hr, Intravenous, CONTINUOUS, Starting on Wed03/09/17 at 1930, Until Wed03/10/17 at 1215, Start IV with 18 gauge angiocath. 0430 (Bolus Current Bag/Med - Provider: Renetta Montero RN)0542 ($ Bolus New Bag - Provider: Renetta Montero RN) PRN Medication Order 03/10/2017 03/11/2017 03/12/2017 benzocaine-menthol (DERMOPLAST) spray Topical, 3 TIMES DAILY PRN, perianal pain, Starting on Wed03/10/17 at 1215, Until Wed03/12/17 at 1636, . WASTE DISPOSAL INSTRUCTION: Send to Pharmacy for Disposal. . , lanolin (LANOLIN) ointment Topical, PRN, Sore or cracked nipples., Starting on Wed03/10/17 at 1215, Until Wed03/12/17 at 1636, Apply purified Lanolin to sore or cracked nipples, if needed. May keep at bedside., 1934 ($ Given - Provider: Rut Chapman LPN) 1235 ($ Given - Provider: Rut Walls, CL) meclizine (ANTIVERT) tablet 25 mg 25 mg, Oral, 3 TIMES DAILY PRN, Dizziness, Starting on Wed03/07/17 at 1722, Until Wed03/12/17 at 1636 ondansetron (ZOFRAN) injection 4 mg (CANCELED) 4 mg, Intravenous, EVERY 6 HOURS PRN, Nausea/Vomiting, Starting on Wed03/09/17 at 1900, Until Wed03/10/17 at 1215 1150 ($ Given - Provider: Sheila Borjas RN) oxyCODONE-acetaminophe n (PERCOCET) 10-325 MG tablet 1 Tab 1 tablet, Oral, EVERY 4 HOURS PRN, Severe Pain, Starting on Wed03/10/17 at 1008, Until Wed03/12/17 at 1636, oxyCODONE-acetaminophe n (PERCOCET) 5-325 MG tablet 1 Tab 1 tablet, Oral, EVERY 4 HOURS PRN, Moderate Pain, Starting on Wed03/10/17 at 1008, Until Wed03/12/17 at 1636, oxytocin (PITOCIN) 30 units in 500 ml normal saline IV solution (CANCELED) 125-1,000 lilibeth-units/min (125-1,000 mL/hr), Intravenous, CONTINUOUS PRN, , Starting on Wed03/09/17 at 1900, Until Wed03/10/17 at 1215, Infuse first bag POST-DELIVERY at 1,000 lilibeth-units/min, then decrease rate to 125 lilibeth-units/min until discontinued. ADMINISTER AFTER THE ANTERIOR SHOULDER OR WITH DELIVERY OF THE PLACENTA. 0935 ($ Bolus New Bag - Provider: Sheila Borjas RN)1015 ($ New Bag/Syringe - Provider: Sheila Borjas RN) phenylephrine-mineral Oil-pet (HEMORRHOIDAL) ointment Rectal, 4 TIMES DAILY PRN, Hemorrhoids, Starting on Wed03/10/17 at 1215, Until Wed03/12/17 at 1636, simethicone (MYLICON) chew tablet 160 mg 160 mg, Oral, QID PRN (after meals and at bedtime), Gas Pain, Starting on Wed03/10/17 at 1215, Until Wed03/12/17 at 1636, Linked Groups Order Group 1: penicillin G potassium 5 Million Units in 0.9% NaCl 100 mL IVPB (COMPLETED) 5 Million Units, at 200 mL/hr, Intravenous, ONCE, 1 dose, On Wed03/09/17 at 1915 Followed by penicillin G pot in dextrose IVPB 3 Million Units 50 mL (CANCELED)Jump to med 3 Million Units, at 100 mL/hr, Intravenous, EVERY 4 HOURS, First dose on Wed03/09/17 at 2315, Until Discontinued documented in this encounter
--- OUTSIDE RECORDS SUMMARY | 2024-09-18 05:30 | XMS_ITS | Encounter Summary ---
Author Organization [facility] Address [facility] [facility] [place] [address] Care Team Providers Care Substance Abuse Nurse Name Role Phone Unavailable Primary Care Provider Unavailabl e Reason for Visit * Reason Comments Imm Inj depo Encounter Details Date Type Department Care Team (Late st Contact Info) Description 10/22/2017 9:00 AM RAIL OPERATIONS CONTROLLER - 10/22/2017 11:59 PM RAIL OPERATIONS CONTROLLER Hospital Encounter [facility] MATERNAL/ EVALUATION UNIT [address] [place] [address] Ignacia Roca MD [address] [facility] [address] [place] [address] Discharge Disposition: Home or Self Care Social [...] Sign Reading Time Taken Comments Blood Pressure 131/77 10/22/2017 9:25 AM RAIL OPERATIONS CONTROLLER Pulse 100 10/22/2017 9:25 AM RAIL OPERATIONS CONTROLLER Temperature - - Respiratory Rate - - Oxygen Saturation - - Inhaled Oxygen Concentration - - Weight 74.4 kg (164 lb) 10/22/2017 9:25 AM RAIL OPERATIONS CONTROLLER Height 154.9 cm (5' 1 ) 10/22/2017 9:25 AM RAIL OPERATIONS CONTROLLER Body Mass Index 30.99 10/22/2017 9:25 AM RAIL OPERATIONS CONTROLLER documented in this encounter Functional Status Functional [...] Sig Dispensed Refills Start Date End Date cyclobenzaprine (FLEXERIL) 5 MG tabletIndications:Low back pain, unspecified back pain laterality, unspecified chronicity, with sciatica presence unspecified Take 1 tablet by mouth at bedtime 20 tablet 10/04/2017 11/28/2018 diclofenac sodium EC (VOLTAREN) 50 MG tabletIndications:Low back pain, unspecified back pain laterality, unspecified chronicity, with sciatica presence unspecified Take 1 tablet by mouth 2 times daily 30 tablet 10/04/2017 11/28/2018 docusate sodium (COLACE) 100 MG capsule Take 1 Cap by mouth 2 times daily 60 Cap 2 03/12/2017 11/28/2018 escitalopram (LEXAPRO) 5 MG tabletIndications:Anxie ty Take 1 tablet by mouth once daily 30 tablet 5 10/04/2017 11/28/2018 famotidine (PEPCID) 20 MG tablet Take [...] as of this encounter Progress Notes * Seble Gutierrez RN - 10/22/2017 10:28 AM CST Pt presents for Depo injection. BP WNL. No complaints at this time. OPERATIONS CONTROLLER documented in this encounter Plan of Treatment Upcoming Encounters Date Type Department Care Team (Late st Contact Info) Description 09/19/2024 8:15 AM RAIL OPERATIONS CONTROLLER Hospital Encounter [facility] Maternal & Care [address] [place], [place] [id number] documented as of this encounter Visit Diagnoses Diagnosis Encounter for supervision of normal first in first trimester ([facility]) Supervision of normal first Encounter for maternal care for suspected poor growth in roman in third trimester ([facility])- Primary Aversion to food: limiting protein intake Feeding difficulties and mismanagement Abnormal ultrasound: dopplers elevated S/d ratio Abnormal findings on screening High-risk in third trimester ([facility]) Previous baby with growth restriction Encounter for screening ([facility]) documented in this encounter Administered Medications Inactive Administered Medications - up to 3 most recent administrations Medication Order MAR Action Action Date Dose Rate Site medroxyPROGESTERone (DEPO-PROVERA) injection 150 mg 150 mg, Intramuscular, ONCE, 1 dose, On Wed10/22/17 at 1000, Shake well before using. $ Given 10/22/2017 9:36 AM RAIL OPERATIONS CONTROLLER 150 mg Left Hip documented in this encounter
--- OUTSIDE RECORDS SUMMARY | 2024-09-18 05:30 | XMS_ITS | Encounter Summary ---
Author Organization [facility] Address [address] [facility] [place] [address] Care Team Providers Care Swing Driver Name Role Phone Brian Velarde DO Primary Care Provider [phone] Andres Angela MD Unavailable [phone] Reason for Visit * Reason Onset Date Comments Update 03/10/2019 Encounter Details Date Type Department Care Team (Late st Contact Info) Description 03/10/2019 Telephone [facility] - Family Medicine [address] [place] [address] Brian Velarde, DO [address] [place] [address] Update Social History Tobacco Use [...] encounter Miscellaneous Notes * Telephone Encounter - Ramona Hooper - 03/10/2019 2:05 PM CDT Patient completed CC payment form for FMLA -given to Yamilex documented in this encounter Plan of Treatment Upcoming Encounters Date Type Department Care Team (Late st Contact Info) Description 09/19/2024 8:15 AM TRUCK DRIVER INSTRUCTOR Hospital Encounter [facility] Maternal & Care [address] [place], [place] [id number] documented as of this encounter Visit Diagnoses Not on filedocumented in this encounter Care Teams Swing Driver Relationship Specialty Start Date End Date Brian Velarde DO PCP - General Family Medicine 11/28/18 04/15/23 Andres Angela MD Psychiatry 12/16/18 documented as of this encounter
--- OUTSIDE RECORDS SUMMARY | 2024-09-18 05:30 | XMS_ITS | Encounter Summary ---
Author Organization [facility] Address [address] [facility] [place] [address] Care Team Providers Care Cattle Care Worker Name Role Phone Brian Velarde DO Primary Care Provider [phone] Andres Angela MD Unavailable [phone] Reason for Visit * Reason Onset Date Comments Appointment 03/02/2019 Encounter Details Date Type Department Care Team (Late st Contact Info) Description 03/02/2019 Telephone [facility] - Family Medicine [address] [place] [address] Brian Velarde, DO [address] [place] [address] Appointment Social History Tobacco Use Types Packs/Day Years [...] * Telephone Encounter - Kendra Wilson - 03/02/2019 3:09 PM CDT Tried calling pt whoever answered did not want to say who was speaking * Telephone Encounter - Brian Velarde DO - 03/02/2019 3:04 PM CDT Tomorrow at 3? * Telephone Encounter - Sonia Schwartz - 03/02/2019 10:29 AM CDT Pt contacted the office wanting to get in edmund too see you regarding getting FMLA for her anxiety disorder. Pt states her medicine is working great but it's making her very tired and hard to wake up in the morning for work. Scheduled patient for 03/09/2019 at 11:30 which was first available. Pt requesting and earlier date if you are able to work her in? documented in this encounter Plan of Treatment Upcoming Encounters Date Type Department Care Team (Late st Contact Info) Description 09/19/2024 8:15 AM [facility] Hospital Encounter [facility] Maternal & Care [address] [place] [address] documented as of this encounter Visit Diagnoses Not on filedocumented in this encounter Care Teams Cattle Care Worker Relationship Specialty Start Date End Date Brian Velarde DO PCP - General Family Medicine 11/28/18 04/15/23 Andres Angela MD Psychiatry 12/16/18 documented as of this encounter
--- OUTSIDE RECORDS SUMMARY | 2024-09-18 05:30 | XMS_ITS | Encounter Summary ---
Author Organization [facility] Address [address] [facility] [place] [address] Care Team Providers Care Drum Cleaner Name Role Phone Brian Velarde DO Primary Care Provider [phone] Andres Angela MD Unavailable [phone] Reason for Visit * Reason Onset Date Comments Forms 12/29/2018 [facility] Encounter Details Date Type Department Care Team (Late st Contact Info) Description 12/29/2018 Telephone [facility] - Family Medicine [address] [place] [address] Brian Velarde, DO [address] [place] [id number] Forms [facility] Social History Tobacco Use Types Packs/Day [...] * Telephone Encounter - Yamilex Sena - 12/29/2018 9:01 AM CDT Patient called back and was informed of same. Patient states that she will take the form to her IOP. Sonia also informed the patient that she faxed over the requested office notes to Andreia. Scanned blank form into the patient's chart. * Telephone Encounter - Yamilex Sena - 12/29/2018 9:[address] Velarde of same and he states that he is not able to fill out this form. Claims that only a mental health specialist can fill it out. Suggests that the patient have her IOP Dr. Angela fill the form out instead. Attempted to contact the patient but her mailbox is full. Will try to call the patient again at a later time. * Telephone Encounter - Yamilex Sena - 12/29/2018 8:50 AM CDT Patient called asking if we received and completed her FMLA form from [employer] that is due today. Told her that the only form we received for her was the Behavioral Health form which we are not able to fill out. Requested that she bring the form into the office or have it faxed again. Patient requests that she email the form to us. Informed the patient that we are not able to email due to HIPAA but that we can allow it for this one time. Gave patient my M email and the patient emailed me the form. Patient states that this leave is for anxiety and that she is in group therapy. States that itis for continuous leave starting on 12/14/18 and that she will go back to work once she is released from therapy. Received the form from [employer] but it is the same Behavioral Health form that we cannot complete. Informed patient of same and asked if she has a different form to fill out. Patient states that this is an FMLA form and that the Behavioral Health part is attached to it. Told patient that I would ask the doctor if he is okay with filling this form out and will call her back. documented in this encounter Plan of Treatment Upcoming Encounters Date Type Department Care Team (Late st Contact Info) Description 09/19/2024 8:15 AM LEAD ANDROID DEVELOPER Hospital Encounter [facility] Maternal & Care [address] [place], [place] [id number] documented as of this encounter Visit Diagnoses Not on filedocumented in this encounter Care Teams Drum Cleaner Relationship Specialty Start Date End Date Brian Velarde DO PCP - General Family Medicine 11/28/18 04/15/23 Andres Angela MD Psychiatry 12/16/18 documented as of this encounter
--- OUTSIDE RECORDS SUMMARY | 2024-09-18 05:30 | XMS_ITS | Encounter Summary ---
Author Organization [facility] Address [facility] [facility] [place] [address] Care Team Providers Care Nail Professional Name Role Phone Brian Velarde DO Primary Care Provider [phone] Andres Angela MD Unavailable [phone] Reason for Visit * Reason Onset Date Comments Forms 03/14/2019 FMLA Encounter Details Date Type Department Care Team (Late st Contact Info) Description 03/14/2019 Telephone [facility] - Family Medicine [address] [place] [address] Brian Velarde, DO [address] [place] [address] Forms (FMLA) Social History Tobacco Use Types [...] * Telephone Encounter - Yamilex Sena - 03/15/2019 10:12 AM CDT Updated FMLA form and faxed it to along with a cover sheet. Informed patient of same. Scanned updated FMLA form into the patient's chart. * Telephone Encounter - Brian Velarde DO - 03/14/2019 4:26 PM CDT Yes ok to add. * Telephone Encounter - Yamilex Sena - 03/14/2019 3:28 PM CDT Patient came into the office today and states that she needs 03/13/19 and 03/14/19 added to her previous FMLA form. Can we update her previous form with those dates? Please advise. documented in this encounter Plan of Treatment Upcoming Encounters Date Type Department Care Team (Late st Contact Info) Description 09/19/2024 8:15 AM [facility] Hospital Encounter [facility] Maternal & Care [address] [place], [place] [phone] documented as of this encounter Visit Diagnoses Not on filedocumented in this encounter Care Teams Nail Professional Relationship Specialty Start Date End Date Brian Velarde DO PCP - General Family Medicine 11/28/18 04/15/23 Andres Angela MD Psychiatry 12/16/18 documented as of this encounter
--- OUTSIDE RECORDS SUMMARY | 2024-09-18 05:30 | XMS_ITS | Encounter Summary ---
Author Organization [facility] Address [address] [place] [address] Care Team Providers Care Biosecurity Officer Name Role Phone Unavailable Primary Care Provider Unavailabl e Reason for Visit * Reason Onset Date Comments Opened In Error 07/12/2017 Encounter Details Date Type Department Care Team (Late Contact Info) Description 07/12/2017 Telephone [facility] MATERNAL/ EVALUATION UNIT [facility] [facility] [place] [address] Dorothy Randall, CL Opened In Error Social History Tobacco Use [...] (Late Contact Info) Description 09/19/2024 8:15 AM BELLMAN CAPTAIN Hospital Encounter [facility] Maternal & Care [address] [place] [address] documented as of this encounter Visit Diagnoses Not on filedocumented in this encounter
--- OUTSIDE RECORDS SUMMARY | 2024-09-18 05:30 | XMS_ITS | Encounter Summary ---
Author Organization [facility] Address [address] [place] [address] Care Team Providers Care R Programmer Name Role Phone Unavailable Primary Care Provider Unavailabl e Reason for Visit * Reason Onset Date Comments Patient Requested Call 03/26/2017 Encounter Details Date Type Department Care Team (Late st Contact Info) Description 03/26/2017 Telephone [facility] MATERNAL/ EVALUATION UNIT [facility] [facility] [place] [address] Frederic Tavarez, RN Patient Requested Call Social History Tobacco Use [...] encounter Miscellaneous Notes * Telephone Encounter - Frederic Tavarez RN - 03/26/2017 11:52 AM CDT Pt called in with c/o severe back, leg and abdominal pain not relieved with prescribed Ibuprofen every 6 hours. Pt moaning on the phone. S/p on 03/10/17. Advised pt that if she is in that severe of pain she needs to be evaluated in the [facility]. Pt voiced understanding. documented in this encounter Plan of Treatment Upcoming Encounters Date Type Department Care Team (Late st Contact Info) Description 09/19/2024 8:15 AM AUTOMATIC WINDER OPERATOR Hospital Encounter [facility] Maternal & Care [address] [place] [id number] documented as of this encounter Visit Diagnoses Not on filedocumented in this encounter
--- OUTSIDE RECORDS SUMMARY | 2024-09-18 05:30 | XMS_ITS | Encounter Summary ---
Author Organization [facility] Address [address] [place] [address] Care Team Providers Care Dye House Helper Name Role Phone Brian Velarde DO Primary Care Provider [phone] Andres Angela MD Unavailable [phone] Reason for Visit * Reason Onset Date Comments Question 12/26/2018 Encounter Details Date Type Department Care Team (Late st Contact Info) Description 12/26/2018 Telephone [facility] - Family Medicine [address] [place] [address] Brian Velarde, DO [address] [place] [address] Question Social History Tobacco Use [...] * Telephone Encounter - Danielle Cardoso - 12/27/2018 9:14 AM CDT lvm for pt to call office. No details in message per HIPAA. * Telephone Encounter - Brian Velarde DO - 12/27/2018 8:03 AM CDT Does she think she's ready to go back to work? How much longer are they advising her to do the program? She didn't sound like she was quite ready to go back but if shes ready, I'm ok with it. I would sayotherwise she should go back at the latest, in 2 weeks. * Telephone Encounter - Argenis Sotelo - 12/26/2018 4:38 PM CDT Who is calling? self If other than self is caller listed on the HIPAA? yes What is the reason for call? Patient w Ants to know when she needs to go back to work ? She states she is still in therapy and that Is during work hours, she doesn't know when that will end , What would you like her to do? And Return to work? Expected Response from the Clinic? Call to advise the patient , and she will need an excuse to return to work when she goes back, the patient is not going to work again tomorrow documented in this encounter Plan of Treatment Upcoming Encounters Date Type Department Care Team (Late st Contact Info) Description 09/19/2024 8:15 AM [facility] Encounter [facility] [address] [place] [id number] documented as of this encounter Visit Diagnoses Not on filedocumented in this encounter Care Teams Dye House Helper Relationship Specialty Start Date End Date Brian Velarde DO PCP - General Family Medicine 11/28/18 04/15/23 Andres Angela MD Psychiatry 12/16/18 documented as of this encounter
--- OUTSIDE RECORDS SUMMARY | 2024-09-18 05:30 | XMS_ITS | Encounter Summary ---
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 Pt mouthing words because she is too anxious to get words out. Encounter Details Date Type Department Care Team (Late st Contact Info) Description 03/24/2018 11:10 AM CDT - 03/24/2018 2:39 PM CDT Emergency ER at [address] [address] Venice Hernández MD [address] [place] [id number] Panic attack (Primary Dx); Palpitations; Anxiety states Discharge Disposition: Home or Self Care Social [...] Sign Reading Time Taken Comments Blood Pressure 130/91 03/24/2018 12:45 PM CDT Pulse 113 03/24/2018 12:45 PM CDT Temperature 36.9 ??C (98.4 ??F) 03/24/2018 11:03 AM C DT Respiratory Rate 27 03/24/2018 12:45 PM CDT Oxygen Saturation 81% 03/24/2018 12:45 PM CDT Inhaled Oxygen Concentration - - Weight 77.1 kg (170 lb) 03/24/2018 11:03 AM CDT Height 154.9 cm (5' 1 ) 03/24/2018 11:03 AM CDT Body Mass Index 32.12 03/24/2018 11:03 AM CDT documented in this encounter Functional [...] 03/07/2017 documented as of this encounter Discharge Instructions * Discharge Instructions* Venice Hernández MD - 03/24/2018 1:50 PM CDT Generalized Anxiety Disorder WHAT YOU NEED TO KNOW: General anxiety disorder (VANDANA) is a condition that causes you to worry more than normal. It also causes you to feel fear in most situations. You are worried or afraid even without a cause. You may worry about your health, job, money, and relationships. It is hard for you to control your worry and feel calm. VANDANA prevents you from doing daily activities. It may also prevent you from spending time with family and friends. Without treatment, your anxiety may get worse. DISCHARGE INSTRUCTIONS: Call 911 for any of the following: ?? You have chest pain, tightness, or heaviness that may spread to your shoulders, arms, jaw, neck,or back. ?? You feel like hurting yourself or someone else. Contact your healthcare provider if: ?? Your symptoms get worse or do not get better with treatment. ?? You have new symptoms since your last visit. ?? You have questions or concerns about your condition or care. Medicines: ?? Medicines help you feel more calm and relaxed, and decrease your symptoms. ?? Take your medicine as directed. Contact your healthcare provider if you think your medicine is not helping or if you have side effects. Tell him of her if you are allergic to any medicine. Keep a list of the medicines, vitamins, and herbs you take. Include the amounts, and when and why you take them. Bring the list or the pill bottles to follow-up visits. Carry your medicine list with you in case of an emergency. Manage anxiety: ?? Talk to someone about your anxiety. Your healthcare provider may suggest counseling. Cognitive behavioral therapy can help you understand and change how you react to events. It can also help you understand what triggers your symptoms. You might feel more comfortable talking with a friend or family member about your anxiety. Choose someone you know will be supportive and encouraging. ?? Keep a journal of your symptoms. Write down what you were doing before your symptoms started. Also write down what made the anxiety better or worse. Bring this journal with you to your follow-up appointments. ?? Find ways to relax. Activities such as yoga, meditation, or listening to music can help you relax. Spend time with friends, or do things you enjoy. ?? Practice deep breathing. Deep breathing can help you relax when you feel anxious. Focus on taking slow, deep breaths several times a day, or during an anxiety attack. Slowly breathe in through your nose. Pause, then slowly breathe out through your mouth. Try to breathe out longer than you breathed in. ?? Create a regular sleep routine. Regular sleep can help you feel calmer during the day. Go to sleep and wake up at the same times every day. Do not watch television or use the computer right beforebed. Your room should be comfortable, dark, and quiet. ?? Eat a variety of healthy foods. Healthy foods include fruits, vegetables, low-fat dairy products, lean meats, fish, whole-grain breads, and cooked beans. Healthy foods can help you feel less anxious and have more energy. ?? Exercise regularly. Exercise can increase your energy level. Exercise may also lift your mood and help you sleep better. Your healthcare provider can help you create an exercise plan. ?? Do not smoke. Nicotine and other chemicals in cigarettes and cigars can increase anxiety. Ask your healthcare provider for information if you currently smoke and need help to quit. E-cigarettes orsmokeless tobacco still contain nicotine. Talk to your healthcare provider before you use these products. ?? Do not have caffeine. Caffeine can make your symptoms worse. Do not have foods or drinks that are meant to increase your energy level. ?? Limit or do not drink alcohol. Ask your healthcare provider if alcohol is safe for you. Also askhow much is safe. You may not be able to drink alcohol if you take certain anxiety or depression medicines. ?? Do not use drugs. Drugs can make your anxiety worse. It can also make anxiety hard to manage. Talk to your healthcare provider if you use drugs and want help to quit. Follow up with your healthcare provider as directed: Write down your questions so you remember to ask them during your visits. ?? 2017 [employer] Information is for End User's use only and may not be sold, redistributed or otherwise used for commercial purposes. All illustrations and images included in CareNotes?? are the copyrighted property of [employer]. or [employer]. The above information is an student financial aid manager only. It is not intended as medical advice for individual conditions or treatments. Talk to your doctor, nurse or pharmacist before following any medical regimen to see if it is safe and effective for you. Panic Attack WHAT YOU NEED TO KNOW: A panic attack is a sudden, strong feeling of fear even though you are not in danger. You also havephysical symptoms such as rapid breathing or heavy sweating. Symptoms are usually worst about 10 minutes after they start and can last up to 20 minutes. You may feel like you are having a heart attack. You may have a panic attack before an event, such as a public speech you have to give. A panic attack can also happen for no clear reason. Frequent panic attacks may be a sign of a panic disorder that needs long-term treatment. DISCHARGE INSTRUCTIONS: Return to the emergency department if: ?? You have severe chest pain, shortness of breath, or irregular heartbeats. ?? You have thoughts of harming yourself or another person. Contact your healthcare provider if: ?? You have new or worsening panic attacks after treatment. ?? You have questions or concerns about your condition or care. Medicines: ?? Medicines may be given to make you feel more relaxed or to reduce anxiety that causes a panic attack. Some medicines are taken only when you are having a panic attack. Other medicines can be takento prevent panic attacks. ?? Take your medicine as directed. Contact your healthcare provider if you think your medicine is not helping or if you have side effects. Tell him of her if you are allergic to any medicine. Keep a list of the medicines, vitamins, and herbs you take. Include the amounts, and when and why you take them. Bring the list or the pill bottles to follow-up visits. Carry your medicine list with you in case of an emergency. Follow up with your healthcare provider as directed: Write down your questions so you remember to ask them during your visits. Manage or prevent a panic attack: ?? Manage stress. Stress can trigger a panic attack. Yoga and meditation are good ways to help manage stress. It might be helpful to talk to someone about the stress in your life. ?? Exercise as directed. Exercise can reduce stress and help you sleep better. Your healthcare provider can help you create an exercise plan. ?? Set a sleep schedule. Too little sleep can increase anxiety. Go to bed at the same time each night and wake up at the same time each morning. Keep your room quiet and free from distractions, such as a television or computer. ?? Limit alcohol and caffeine. Alcohol and caffeine can both increase anxiety and make it difficultfor you to sleep well. A drink of alcohol is 12 ounces of beer, 5 ounces of wine, or 1?? ounces of liquor. ?? Eat a variety of healthy foods. Healthy foods include fruits, vegetables, low-fat dairy products, lean meats, fish, and beans. Limit sugar. Sugar can increase your symptoms. ?? Do not smoke. Nicotine and other chemicals in cigarettes and cigars can increase anxiety and also cause lung damage. Ask your healthcare provider for information if you currently smoke and need help to quit. E-cigarettes or smokeless tobacco still contain nicotine. Talk to your healthcare provider before you use these products. ?? 2017 [employer] Information is for End User's use only and may not be sold, redistributed or otherwise used for commercial purposes. All illustrations and images included in CareNotes?? are the copyrighted property of [employer] or [employer]. The above information is an student financial aid manager only. It is not intended as medical advice for individual conditions or treatments. Talk to your doctor, nurse or pharmacist before following any medical regimen to see if it is safe and effective for you. documented in this encounter Medications at Time of Discharge Medication Sig Dispensed Refills Start Date End Date ALPRAZolam (XANAX) 1 MG tablet Take 1 tablet by mouth 3 times daily as needed for Anxiety 15 tablet 03/24/2018 11/28/2018 cyclobenzaprine (FLEXERIL) 5 MG tabletIndications:Low back pain, [...] on day 3. 2 Tab 02/24/2017 11/28/2018 hydrOXYzine hcl (ATARAX) 25 MG tablet Take 1 tablet by mouth 3 times daily as needed for Itching 30 tablet 03/24/2018 11/28/2018 ibuprofen (MOTRIN) 600 MG tablet Take [...] 02/17/2017 11/28/2018 documented as of this encounter ED Notes * Margarette Hall RN - 03/24/2018 1:[address] Hernández at the bedside. * Charli Hall RN - 03/24/2018 11:51 AM CDT Bed: TRIAGE2 Expected date: 03/24/18 Expected time: 10:47 AM Means of arrival: Comments: [age] y/o Anxiety * Margarette Hall RN - 03/24/2018 11:37 AM CDT Xray at the bedside. * Margarette Hall RN - 03/24/2018 11:27 AM CDT Pt placed on athletic monitor. HR 140. Pt mouthing words barely making any sounds. Pt crying. Pt prompted several times to explain what is wrong but pt unable to answer at this time. Dr. Hernández present at bedside. * Venice Hernández MD - 03/24/2018 11:19 AM CDT Provider contact with the patient: 03/24/2018 11:19 Marnie Jones [id number] [facility] History Chief Complaint Patient presents with ??? PANIC ATTACK Pt presents to the ED with c/o panic attack while at work. Pt mouthing words because she is too anxious to get words out. Chief complaint narrative was entered by triage nurse, not by physician. HPI Comments: 11:20 AM Marnie Jones, a 22 y.o. female with a past medical history that includes--asthma, chlamydia, STD--presents to the ER c/o headache and subsequent panic attack that startedwhile at work this morning, per RN. Patient appears anxious and signals chest feels tight and SOB but is unable to speak at this time and has mild hyperventilation. BP 84/60 Pulse (!) 112 Temp 98.4 ??F (36.9 ??C) Resp 16 . HPI and ROS limited as patient is nonverbal. PCP: Madison Mathis, DO Past Medical History: Diagnosis Date ??? Chlamydia contact, treated 07/29/2013 reports repeat infection 2014 ??? History of asthma as a child ??? History of sexually transmitted disease Past Surgical History: Procedure Laterality Date ??? NEGATIVE SURGICAL HISTORY Family History Problem Relation Age of Onset ??? Hypertension Mother Social History Social History ??? Marital status: [...] ??? Not on file Social History Narrative No Known Allergies Review of Systems Review of Systems Unable to perform ROS: Patient nonverbal Respiratory: Positive for shortness of breath. Cardiovascular: Signals chest tightness. Neurological: Positive for headaches. Psychiatric/Behavioral: The patient is nervous/anxious. Physical Exam BP 84/60 Pulse (!) 112 Temp 98.4 ??F (36.9 ??C) Resp 16 Ht 1.549 m (5' 1 ) Wt 77.1 kg (170 lb) SpO2 100% BMI 32.12 kg/m2 Physical Exam Constitutional: She is oriented to person, place, and time. She appears distressed. Pt appears very anxious, refusing to speak. Having generalized tremors and acute distress. HENT: Head: Atraumatic. Mouth/Throat: Oropharynx is clear and moist. Moist mucous membranes Eyes: EOM are normal. Pupils are equal, round, and reactive to light. Neck: Neck supple. Cardiovascular: Regular rhythm and normal heart sounds. Tachycardia present. Tachycardic. Pulmonary/Chest: Breath sounds normal. No respiratory distress. She has no wheezes. She has no rales. Lungs clear to auscultation bilaterally Abdominal: Soft. There is no tenderness. There is no rebound and no guarding. Abd Soft, non tender No CVA tenderness Musculoskeletal: Normal range of motion. She exhibits no edema or tenderness. No pedal edema NO calf swelling or tenderness Neurological: She is alert and oriented to person, place, and time. AO X 3 No facial droop CN intact Nl Motor and sensation Skin: Skin is warm and dry. Psychiatric: Her mood appears anxious. She is hyperactive. She is noncommunicative. Nursing note and vitals reviewed. Medications Current Outpatient Prescriptions Medication Sig Dispense Refill ??? hydrOXYzine hcl (ATARAX) 25 MG tablet Take 1 tablet by mouth 3 times daily as needed for Itching 30 tablet 0 ??? ALPRAZolam (XANAX) 1 MG tablet Take 1 tablet by mouth 3 times daily as needed for Anxiety 15 tablet 0 ??? diclofenac sodium EC (VOLTAREN) 50 MG tablet Take 1 tablet by mouth 2 times daily 30 tablet 0 ??? cyclobenzaprine (FLEXERIL) 5 MG tablet Take 1 tablet by mouth at bedtime 20 tablet 0 ??? escitalopram (LEXAPRO) 5 MG tablet Take 1 tablet by mouth once daily 30 tablet 5 ??? metoclopramide (REGLAN) 10 MG tablet Take [...] 2 times daily 60 Cap 2 ??? ferrous sulfate 325 (65 FE) MG tablet Take 1 Tab by mouth 2 times daily with morning and evening meal 60 Tab 2 ??? fluconazole (DIFLUCAN) 150 MG tablet [...] taking: Reported on 03/07/2017) 30 Tab 2 Procedures Procedures ECG Interpretation Date/Time: 03/24/2018 11:55 AM Interpreted by ED provider Comparison: compared with previous ECG from 03/05/2017 Similar to previous ECG Rhythm: sinus tachycardia Ectopy: none Rate: tachycardic BPM: 138 QRS axis: normal Conduction: conduction normal T Waves: T waves normal Other: no other findings Clinical impression: non-specific ECG Comments: Baseline artifact. ECG Rhythm Interpretation ECG Rhythm: sinus tachycardia. ECG Rate: tachycardic. ECG Heart Rate: 138. ECG Ectopy: none. ECG Blocks: none. Lab Interpretation Oxygen Saturation Interpretation The oxygen saturation level is: 100%. The patient was on Room Air for the saturation measurement. Measurement frequency: Spot Check. Oxygen saturation interpretation is Normal. Intervention(s) used: None. Hospital Encounter on 03/24/18 CBC W AUTO DIFFERENTIAL Result Value Ref Range WBC 9.1 4.4 - 10.7 x10E9/L WBC Corrected x10E9/L RBC 5.00 3.80 - 5.20 x10E12/L Hemoglobin 13.0 12.0 - 15.6 gm/dL Hematocrit 40.8 35.9 - 45.5 % MCV 81.6 80.7 - 98.3 fl MCH 26.0 (L) 26.7 - 34.0 pg MCHC 31.9 30.8 - 35.9 gm/dL Plt Ct 352 153 - 416 x10E9/L RDW-CV 14.0 12.1 - 14.9 % MPV 10.4 9.4 - 12.9 fl Neutro 57.7 44.0 - 73.0 % Lymph 31.6 20.0 - 43.0 % [place] 7.3 5.0 - 13.0 % Eos 3.0 0.0 - 6.0 % Baso 0.1 0.0 - 2.0 % Immature Grans 0.3 0 - 1 % Neutro Abs 5.24 2.01 - 7.14 x10E9/L Lymph Abs 2.87 1.07 - 3.94 x10E9/L [place] Abs 0.66 0.26 - 1.07 x10E9/L Eosin Abs 0.27 0 - 0.47 x10E9/L Baso Abs 0.01 0 - 0.08 x10E9/L Immature Grans (Abs) 0.03 0.00 - 0.06 x10E9/L NRBC Auto 0 /100 WBC COMPREHENSIVE METABOLIC PANEL Result Value Ref Range Glucose 89 74 - 106 mg/dL Sodium 140 136 - 145 mmol/L Potassium 3.5 3.5 - 5.1 mmol/L Chloride 109 (H) 98 - 107 mmol/L CO2 18 (L) 22 - 31 mmol/L Calcium 9.3 8.5 - 10.1 mg/dL Anion Gap 13 8 - 16 mmol/L BUN 9 7 - 21 mg/dL Creatinine 0.83 0.50 - 1.30 mg/dL Alkaline Phosphatase 67 38 - 126 U/L ALT/SGPT 15 13 - 61 U/L AST/SGOT 12 5 - 40 U/L Protein Total 8.3 (H) 6.4 - 8.2 gm/dL Albumin 3.8 3.4 - 5.0 gm/dL Bili Total 0.1 (L) 0.2 - 1.0 mg/dL eGFR MDRD >60 >60 mL/min/1.73m2 eGFR MDRD AFR AMR >60 >60 mL/min/1.73m2 TSH REFLEX FREE T4 Result Value Ref Range TSH 2.75 0.358 - 3.740 ulU/mL DRUG SCREEN TOX LIMITED BLD PNL 3 INHOUSE Result Value Ref Range Acetaminophen <2.0 (L) 10.0 - 30.0 ug/mL Ethanol 40 (H) <10 mg/dL Salicylate Serum 2.0 <20.0 mg/dL DRUG SCREEN TOX URINE PANEL Result Value Ref Range Amphetamines Screen Urine Detected (Abnormal) Not Detected Barbiturates Screen Urine Not Detected Not Detected Benzodiazepines Screen Urine Not Detected Not Detected Cannabinoids Screen Urine Not Detected Not Detected Cocaine Screen Urine Not Detected Not Detected Methadone Screen Urine Not Detected Not Detected Opiates Screen Urine Not Detected Not Detected Phencyclidine Screen Urine Not Detected Not Detected URINALYSIS REFLEX MICROSCOPIC REFLEX CULTURE Result Value Ref Range Color UA Yellow Straw, Yellow Clarity UA Slt Cloudy (Abnormal) Clear Glucose UA Negative Negative Bili UA Negative Negative Ketone UA Trace (Abnormal) Negative Specific [place] UA 1.013 1.005 - 1.030 Blood UA 1+ (Abnormal) Negative pH UA 6.0 5.0 - 8.0 pH Protein UA Negative Negative Urobilinogen UA Negative Negative mg/dL Nitrite UA Negative Negative Leukocyte UA 3+ (Abnormal) Negative Urine Microscopy Urine microscopy to follow Reflex Status Culture to follow HCG BLOOD QUALITATIVE Result Value Ref Range HCG Qual Serum Negative Negative TROPONIN I Result Value Ref Range Troponin I <0.015 0.000 - 0.049 ng/mL URINE MICROSCOPIC ONLY REFLEX TO CULTURE Result Value Ref Range Reflex Status Culture to follow RBC UA 0-5 0-5, None Seen # /hpf WBC UA 0-5 0-5, None Seen # /hpf Bacteria UA 1+ (Abnormal) None Seen Squamous epithelial cells 6-10 (Abnormal) None Seen, 0-2, 3-5 /hpf Mucus 3+ /LPF XR CHEST 1VW PORTABLE Final Result Chest AP portable INDICATION: Shortness of breath and heart palpitations FINDINGS: Frontal view of the chest compared to January 26, 2017 shows no consolidation, pleural effusion or pneumothorax. The heart size is normal. IMPRESSION No acute pulmonary disease Reading Radiologist: Efren Rosas MD on 03/24/2018 at 12:03 PM Progress Notes Assessment and Plan: Marnie Jones, a 22 y.o. female with a past medical history that includes--anxiety and panic attack and asthma--presents to the ER with tachycardia and evidence of anxiety. Patient appears to be having a panic attack. Will obtain basic labs, EKG, chest x-ray, will give Ativan and Reassess. 11:24 AM: Ordered 1 mg Ativan. 11:25 AM: Patient is pulling away and refusing IV placement from RN. I discussed the need for an IV. I ordered 2mg Ativan as IM. 11:54 AM: Labs unremarkable and negative troponin, normal TSH, chest x-ray negative. 1:07 PM I re-evaluated the patient???s medical condition, comfort, and provided a care update. Patient is now able to talk and states she has a history of anxiety. She states she is compliant with Xanax daily and ran out a few days ago and follows-up with counselor. She states last dose of Xanax was yesterday and did not have any to take in the morning. She also notes she is on the search for a new counselor to give her a refill for her prescription. Patient is smoker. Denies marijuana. I discussed that I would be able to provide some Xanax for the next few days and the need to follow-up withpsychiatrist/counselor for continuing prescription. 1:12 PM: I discussed with ROXI Dasilva () all pertinent aspects of the case including HPI details, physical exam findings, testing completed, medications given, the pt's current condition, and my clinical impression. ROXI Dasilva agrees with plan to follow-up with patient. 2:19 PM: I discussed the results of diagnostic studies and my clinical impression with the patient.I discussed the plan for discharge with the patient, including the need for follow-up with psychiatrist/counselor. Patient expresses understanding and agrees with plan, all questions addressed. Pt is medically stable for d/c home at this time. I have given the patient instructions regarding her diagnosis, expectations, follow up, and return precautions. I explained to the patient that emergent conditions may arise and to return to the ER for new, worsening, or any persistent conditions. I've explained the importance of following up with her doctor --[facility]--and psychiatry/counseling, as instructed. The patient verbalized understanding of the discharge instructions. ED Course ED Course Medical Decision Making I have reviewed the: Previous Chart, Nursing Notes, Vitals. I have interpreted the following results: Labs, 12 Lead EKG, Rhythm Strip, X- Ray, Oxygen Saturation. I have discussed the case with Psychiatry (ROXI Dasilva). Orders Placed This Encounter ??? CULTURE URINE ??? XR CHEST 1VW PORTABLE ??? CBC W AUTO DIFFERENTIAL ??? COMPREHENSIVE METABOLIC PANEL ??? TSH REFLEX FREE T4 ??? DRUG SCREEN TOX LIMITED BLD PNL 3 INHOUSE ??? DRUG SCREEN TOX URINE PANEL ??? URINALYSIS REFLEX MICROSCOPIC REFLEX CULTURE ??? HCG BLOOD QUALITATIVE ??? TROPONIN I ??? URINE MICROSCOPIC ONLY REFLEX TO CULTURE ??? EKG 12-LEAD ??? DISCONTD: LORazepam (ATIVAN) injection 1 mg ??? lactated ringers IV bolus ??? DISCONTD: LORazepam (ATIVAN) injection 2 mg ??? DISCONTD: LORazepam (ATIVAN) injection ADS Med ??? LORazepam (ATIVAN) injection 1 mg ??? diphenhydrAMINE (BENADRYL) injection 25 mg ??? DISCONTD: hydrOXYzine hcl (ATARAX) 25 MG tablet ??? DISCONTD: ALPRAZolam (XANAX) 0.25 MG tablet ??? hydrOXYzine hcl (ATARAX) 25 MG tablet ??? ALPRAZolam (XANAX) 1 MG tablet Clinical Impression Final diagnoses: Palpitations Anxiety states Panic attack New Medications: Discharge Medication List as of 03/24/2018 2:23 PM START taking these medications Details hydrOXYzine hcl (ATARAX) 25 MG tablet Disp-30 tablet, R-0, Take 1 tablet by mouth 3 times daily as needed for Itching, Print ALPRAZolam (XANAX) 1 MG tablet Disp-15 tablet, R-0, Take 1 tablet by mouth 3 times daily as needed for Anxiety, Print I have advised the patient to follow-up with: [address] [address] Call in 1 day [facility] Emergency Department [id number] [facility] [id number] If symptoms worsen Disposition: Discharged Scribe Signature and Attestation By signing my name below, ITorrie, attest that this documentation has been prepared under the direction and in the presence of Venice Hernández MD Electronically Signed: Nohemi Barillas. 03/24/2018. Time 11:20 AM Provider Signature and Attestation IVenice MD, personally performed the services described in this documentation. All medicalrecord entries made by the scribe were at my direction and in my presence. I have reviewed the chart and agree that the record reflects my personal performance and is accurate and complete. Electronically Signed: Venice Hernández MD 03/24/2018. Time 10:55 PM documented in this encounter Plan of Treatment Upcoming Encounters Date Type Department Care Team (Late st Contact Info) Description 09/19/2024 8:15 AM SIGN MAKER Hospital Encounter [facility] [address] [place] [address] documented as of this encounter Procedures Procedure Name Priority Date/Time Associated Diagnosis Comments URINE MICROSCOPIC ONLY REFLEX TO CULTURE STAT 03/24/2018 1:01 PM CDT URINALYSIS REFLEX MICROSCOPIC REFLEX CULTURE STAT 03/24/2018 1:01 PM CDT CULTURE URINE STAT 03/24/2018 1:01 PM CDT URINE DRUG SCREEN IMMUNOASSAY STAT 03/24/2018 1:01 PM CDT XR CHEST 1VW PORTABLE STAT 03/24/2018 11:58 AM CDT Palpitations EKG 12-LEAD STAT 03/24/2018 11:55 AM CDT Panic attack EKG 12-LEAD STAT 03/24/2018 11:55 AM CDT Palpitations HCG BLOOD QUALITATIVE Add on 03/24/2018 11:38 AM CDT DRUG SCREEN TOX LIMITED BLD PNL 3 INHOUSE STAT 03/24/2018 11:35 AM CDT TSH REFLEX FREE T4 STAT 03/24/2018 11 :35 AM CDT TROPONIN I Add on 03/24/2018 11:35 AM CDT CBC W AUTO DIFFERENTIAL STAT 03/24/2018 11:35 AM CDT COMPREHENSIVE METABOLIC PANEL STAT 03/24/2018 11:35 AM CDT documented in this encounter Results * CULTURE URINE (03/24/2018 1:01 PM CDT) Culture Urine 10,000-50,000 CFU/mL urogenital anjelica CHELA 03/25/2018 3:29 PM CDT [facility] MICROBIOLOGY Urine URINE SPECIMEN OBTAINED BY CLEAN CATCH PROCEDURE / Unknown Collection / Unknown 03/24/2018 1:01 PM CDT 03/24/2018 1:11 PM CDT Venice Hernández MD LAB - MICROBIOLOGY O RDERABLES [facility] MICROBIOLOGY [address] [place] [address], [facility] [phone] * (ABNORMAL) URINE MICROSCOPIC ONLY REFLEX TO CULTURE (03/24/2018 1:01 PM CDT) Reflex Status Culture to follow 03/24/2018 1:24 PM CDT [facility] RBC UA 0-5 0-5, None Seen # /hpf 03/24/2018 1:24 PM CDT [facility] WBC UA 0-5 0-5, None Seen # /hpf 03/24/2018 1:24 PM CDT [facility] Bacteria UA 1+(A) None Seen 03/24/2018 1:24 PM CDT [facility] Squamous Epithelial Cells 6-10(A) None Seen, 0-2, 3-5 /hpf 03/24/2018 1:24 PM CDT [facility] Mucus UA 3+ /LPF 03/24/2018 1:24 PM CDT [facility] Urine URINE SPECIMEN OBTAINED BY CLEAN CATCH PROCEDURE / Unknown Collection / Unknown 03/24/2018 1:01 PM CDT 03/24/2018 1:11 PM CDT Narrative [facility] - 03/24/2018 1:24 PM CDT Venice Hernández MD LAB - URINALYSIS ORD ERABLES [facility] [address] [place] [address] * (ABNORMAL) URINALYSIS REFLEX MICROSCOPIC REFLEX CULTURE (03/24/2018 1:01 PM CDT) Color UA Yellow Straw, Yellow 03/24/2018 1:19 PM CDT [facility] Clarity UA Slt Cloudy(A) Clear 03/24/2018 1:19 PM CDT [facility] Glucose UA Negative Negative 03/24/2018 1:19 PM CDT [facility] Bilirubin UA Negative Negative 03/24/2018 1:19 PM CDT [facility] Ketone UA Trace(A) Negative 03/24/2018 1:19 PM CDT [facility] Specific [place] UA 1.013 1.005 - 1.030 03/24/2018 1:19 PM CDT [facility] Blood UA 1+(A) Negative 03/24/2018 1:19 PM CDT [facility] pH UA 6.0 5.0 - 8.0 pH 03/24/2018 1:19 PM CDT [facility] Protein UA Negative Negative 03/24/2018 1:19 PM CDT [facility] Urobilinogen UA Negative Negative mg/dL 03/24/2018 1:19 PM CDT [facility] Nitrite UA Negative Negative 03/24/2018 1:19 PM CDT [facility] Leukocyte UA 3+(A) Negative 03/24/2018 1:19 PM CDT [facility] Urine Microscopy Urine microscopy to follow 03/24/2018 1:19 PM CDT [facility] Reflex Status Culture to follow 03/24/2018 1:19 PM CDT [facility] Urine URINE SPECIMEN OBTAINED BY CLEAN CATCH PROCEDURE / Unknown Collection / Unknown 03/24/2018 1:01 PM CDT 03/24/2018 1:11 PM CDT Narrative [facility] - 03/24/2018 1:19 PM CDT Venice Hernández MD LAB - URINALYSIS ORD ERABLES [facility] [address] [place] [address] * (ABNORMAL) DRUG SCREEN TOX URINE PANEL (03/24/2018 1:01 PM CDT) Amphetamines Screen Urine Detected(A) Not Detected 03/24/2018 1:27 PM CDT [facility] Barbiturates Screen Urine Not Detected Not Detected 03/24/2018 1:27 PM CDT [facility] Benzodiazepines Screen Urine Not Detected Not Detected 03/24/2018 1:27 PM CDT [facility] Cannabinoids Screen Urine Not Detected Not Detected 03/24/2018 1:27 PM CDT [facility] Cocaine Screen Urine Not Detected Not Detected 03/24/2018 1:27 PM CDT [facility] Methadone Screen Urine Not Detected Not Detected 03/24/2018 1:27 PM CDT [facility] Opiate Screen Urine Not Detected Not Detected 03/24/2018 1:27 PM CDT [facility] Phencyclidine Screen Urine Not Detected Not Detected 03/24/2018 1:27 PM CDT [facility] Urine URINE / Unknown Collection / Unknown 03/24/2018 1:01 PM CDT 03/24/2018 1:10 PM CDT Narrative [facility] - 03/24/2018 1:27 PM CDT This drug screen is designed [...] ?300 ng/mL OPIATES ?300 ng/mL PHENCYCLIDINE(PCP)25 ng/mL Venice Hernández MD LAB - URINE CHEMISTR Y ORDERABLES [facility] [address] [place] [address] * XR CHEST 1VW PORTABLE (03/24/2018 11:58 [...] Hernández MD DIAGNOSTIC IMAGING O RDERABLES * EKG 12-LEAD (03/24/2018 11:55 AM CDT) Ventricular Rate 138 BPM [facility] Atrial Rate 138 BPM [facility] QRS Duration ms 70 ms [facility] Q-T Interval ms 364 ms [facility] QTC Calculation (Bezet) 551 ms [facility] Calculated R [place] 24 degrees [facility] Calculated T [place] 58 degrees [facility] Interpretation EKG Sinus tachycardia Nonspecific T wave abnormality Otherwise normal ECG Confirmed by ELIZABETH MARRERO MD ([id number]) on 04/12/2018 10:52:38 PM [facility] 03/24/2018 11:5 5 AM CDT 04/12/2018 10:52 PM CDT Venice Hernández MD ECG ORDERABLES [facility] * EKG 12-LEAD (03/24/2018 11:55 AM CDT) Ventricular Rate 131 BPM [facility] Atrial Rate 375 BPM [facility] QRS Duration ms 68 ms [facility] Q-T Interval ms 394 ms [facility] QTC Calculation (Bezet) 581 ms [facility] Calculated R [place] 31 degrees [facility] Calculated T [place] 36 degrees [facility] Interpretation EKG Sinus tachycardia Nonspecific ST and T wave abnormality , probably digitalis effect Abnormal ECG No previous ECGs available Confirmed by NAVEED GROVES MD ([id number]) on 03/25/2018 3:17:12 PM [facility] M[facility] 03/24/2018 11:5 5 AM CDT 03/25/2018 3:17 PM CDT Venice Hernández MD ECG ORDERABLES Performing Organization Address [facility] Co de Phone Number [facility] * HCG BLOOD QUALITATIVE (03/24/2018 11:38 AM CDT) HCG Qual Serum Negative Negative 03/24/2018 11:59 AM CDT [facility] Blood BLOOD SPECIMEN / Unknown Venipuncture / Unknown 03/24/2018 11:38 AM CDT 03/24/2018 11:38 AM CDT Venice Hernández MD LAB - CHEMISTRY SANGITA ARAIZA Performing Organization Address [email or web address]] de Phone Number [facility] [address] [phone] * TROPONIN I (03/24/2018 11:35 AM CDT) Troponin I <0.015 0.000 - 0.049 ng/mL 03/24/2018 12:34 PM CDT [facility] Blood BLOOD SPECIMEN / Unknown Venipuncture / Unknown 03/24/2018 11:35 AM CDT 03/24/2018 11:37 AM CDT Narrative [facility] - 03/24/2018 12:34 PM CDT Note: Diagnosis of myocardial infarction requires symptoms of ischemia or EKG changes of ischemia and Troponin I >99th of normal (0.05 ng/mL). Troponin should be drawn on initial assessment and 3-6 hours later as clinically indicated. Any condition resulting in myocardial cell damage can increase cardiac troponin levels. In addition to myocardial infarction, these include but are not limited to congestive heart failure (CHF), arrhythmia, myocarditis, and non-cardiac related causes such as pulmonary embolism, renal failure and sepsis. Venice Hernández MD LAB - CHEMISTRY SANGITA ARAIZA [facility] [address] [place] [address] * (ABNORMAL) DRUG SCREEN TOX LIMITED BLD PNL 3 INHOUSE (03/24/2018 11:35 AM CDT) Acetaminophen <2.0(L) 10.0 - 30.0 ug/mL 03/24/2018 11:57 AM CDT [facility] Ethanol 40(H) <10 mg/dL 03/24/2018 11:57 AM CDT [facility] Salicylate 2.0 <20.0 mg/dL 03/24/2018 11:57 AM CDT [facility] Blood BLOOD SPECIMEN / Unknown Venipuncture / Unknown 03/24/2018 11:35 AM CDT 03/24/2018 11:37 AM CDT Narrative [facility] - 03/24/2018 11:57 AM CDT [facility] COM[facility] Critical values: 4 Hours [...] may alter the peak level. Contact the [facility] at or reserved for healthcare professionals to assist you in evaluating potentially toxic acetaminophen levels. Venice Hernández MD LAB - CHEMISTRY SANGITA ARAIZA [facility] [address] [place] [address] * TSH REFLEX FREE T4 (03/24/2018 11:35 AM CDT) TSH 2.75 0.358 - 3.740 ulU/mL 03/24/2018 12:08 PM CDT [facility] Blood BLOOD SPECIMEN / Unknown Venipuncture / Unknown 03/24/2018 11:35 AM CDT 03/24/2018 11:37 AM CDT Venice Hernández MD LAB - CHEMISTRY SANGITA ARAIZA [facility] Organization Address City/State/ZIP Co de Phone Number [facility] [address] [place] [address] * (ABNORMAL) COMPREHENSIVE METABOLIC PANEL (03/24/2018 11:35 AM CDT) [facility] Glucose 89 74 - 106 mg/dL 03/24/2018 12:01 PM CDT [facility] Sodium 140 136 - 145 mmol/L 03/24/2018 12:01 PM CDT [facility] Potassium 3.5 3.5 - 5.1 mmol/L 03/24/2018 12:01 PM CDT [facility] Chloride 109(H) 98 - 107 mmol/L 03/24/2018 12:01 PM CDT [facility] CO2 18(L) 22 - 31 mmol/L 03/24/2018 12:01 PM CDT [facility] Calcium 9.3 8.5 - 10.1 mg/dL 03/24/2018 12:01 PM T [facility] Anion Gap 13 8 - 16 mmol/L 03/24/2018 12:01 PM CDT [facility] BUN 9 7 - 21 mg/dL 03/24/2018 12:01 PM CDT [facility] Creatinine 0.83 0.50 - 1.30 mg/dL 03/24/2018 12:01 PM [facility] Alkaline Phosphatase 67 38 - 126 U/L 03/24/2018 12:01 PM CDT [facility] ALT 15 13 - 61 U/L 03/24/2018 12:01 PM T [facility] AST 12 5 - 40 U/L 03/24/2018 12:01 PM CDT [facility] Protein Total 8.3(H) 6.4 - 8.2 gm/dL 03/24/2018 12:01 PM CDT [facility] Albumin 3.8 3.4 - 5.0 gm/dL 03/24/2018 12:01 PM T [facility] Bilirubin Total 0.1(L) 0.2 - 1.0 mg/dL 03/24/2018 12:01 PM CDT [facility] eGFR by MDRD >60 >60 mL/min/1.7 3m2 03/24/2018 12:01 PM CDT [facility] eGFR by MDRD >60 >60 mL/min/1.7 3m2 03/24/2018 12:01 PM CDT [facility] Blood BLOOD SPECIMEN / Unknown Venipuncture / Unknown 03/24/2018 11:35 AM CDT 03/24/2018 11:37 AM CDT Venice Hernández MD LAB - CHEMISTRY SANGITA ARAIZA [facility] [address] [place] [address] * (ABNORMAL) CBC W AUTO DIFFERENTIAL (03/24/2018 11:35 AM CDT) WBC 9.1 4.4 - 10.7 x10E9/L 03/24/2018 11:43 AM CDT [facility] WBC Corrected x10E9/L 03/24/2018 11:43 AM CDT [facility] RBC 5.00 3.80 - 5.20 x10E12/L 03/24/2018 11:43 AM CDT [facility] Hemoglobin 13.0 12.0 - 15.6 gm/dL 03/24/2018 11:43 AM CDT [facility] Hematocrit 40.8 35.9 - 45.5 % 03/24/2018 11:43 AM CDT [facility] MCV 81.6 80.7 - 98.3 fl 03/24/2018 11:43 AM CDT [facility] MCH 26.0(L) 26.7 - 34.0 pg 03/24/2018 11:43 AM CDT [facility] MCHC 31.9 30.8 - 35.9 gm/dL 03/24/2018 11:43 AM CDT [facility] Platelet Count 352 153 - 416 x10E9/L 03/24/2018 11:43 AM CDT [facility] RDW-CV 14.0 12.1 - 14.9 % 03/24/2018 11:43 AM CDT [facility] MPV 10.4 9.4 - 12.9 fl 03/24/2018 11:43 AM CDT [facility] Neutrophils % 57.7 44.0 - 73.0 % 03/24/2018 11:43 AM CDT [facility] Lymphocytes % 31.6 20.0 - 43.0 % 03/24/2018 11:43 AM CDT [facility] Monocytes % 7.3 5.0 - 13.0 % 03/24/2018 11:43 AM CDT [facility] Eosinophils % 3.0 0.0 - 6.0 % 03/24/2018 11:43 AM CDT [facility] Basophils % 0.1 0.0 - 2.0 % 03/24/2018 11:43 AM CDT [facility] Immature Granulocytes 0.3 0 - 1 % 03/24/2018 11:43 AM CDT [facility] Neutrophil Absolute 5.24 2.01 - 7.14 x10E9/L 03/24/2018 11:43 AM CDT [facility] Lymphocytes Absolute 2.87 1.07 - 3.94 x10E9/L 03/24/2018 11:43 AM CDT [facility] Monocytes Absolute 0.66 0.26 - 1.07 x10E9/L 03/24/2018 11:43 AM CDT [facility] Eosinophils Absolute 0.27 0 - 0.47 x10E9/L 03/24/2018 11:43 AM CDT [facility] Basophils Absolute 0.01 0 - 0.08 x10E9/L 03/24/2018 11:43 AM CDT [facility] Immature Granulocytes Absolute 0.03 0.00 - 0.06 x10E9/L 03/24/2018 11:43 AM CDT [facility] nRBC Auto 0 /100 WBC 03/24/2018 11:43 AM CDT [facility] Blood BLOOD SPECIMEN / Unknown Venipuncture / Unknown 03/24/2018 11:35 AM CDT 03/24/2018 11:37 AM CDT Venice Hernández MD LAB - HEMATOLOGY ORD ERABLES [facility] Organization Address City/State/ZIP Co de Phone Number [facility] [address] [place] [address] documented in this encounter Visit Diagnoses Diagnosis Panic attack- Primary Panic disorder without agoraphobia Palpitations Anxiety states Encounter for maternal care for suspected poor growth in roman in third trimester ([facility])- Primary Aversion to food: limiting protein intake Feeding difficulties and mismanagement Abnormal ultrasound: dopplers elevated S/d ratio Abnormal findings on screening High-risk in third trimester ([facility]) Previous baby with growth restriction Encounter for screening ([facility]) documented in this encounter Administered Medications Inactive Administered Medications - up to 3 most recent administrations Medication Order MAR Action Action Date Dose Rate Site diphenhydrAMINE (BENADRYL) injection 25 mg 25 mg, Intravenous, NOW, 1 dose, On Ruby 03/24/18 at 1215, Max intravenous rate = 25 mg/min $ Given 03/24/2018 12:20 PM CDT 25 mg lactated ringers IV bolus 1,000 mL, at 2,000 mL/hr, Administer over 30 Minutes, ONCE, 1 dose, On Ruby 03/24/18 at 1145 $ New Bag/Syringe 03/24/2018 12:05 PM CDT 1,000 mL 2000 mL/hr LORazepam (ATIVAN) injection 1 mg 1 mg, Intravenous, NOW, 1 dose, On Ruby 03/24/18 at 1145 $ Given 03/24/2018 11:39 AM CDT 1 mg documented in this encounter Active and Recently Administered Medications Times are shown in CDT. Scheduled Medication Order 03/22/2018 03/23/2018 03/24/2018 diphenhydrAMINE (BENADRYL) injection 25 mg (COMPLETED) 25 mg, Intravenous, NOW, 1 dose, On Ruby 03/24/18 at 1215, Max intravenous rate = 25 mg/min 1220 ($ Given - Prov ider: Margarette Hall RN) lactated ringers IV bolus (COMPLETED) 1,000 mL, at 2,000 mL/hr, Administer over 30 Minutes, ONCE, 1 dose, On Ruby 03/24/18 at 1145 1205 ($ New Bag/Syri nge - Provider: Margarette Hall RN)[id number] (Stopped - Provider: Margarette Hall RN) LORazepam (ATIVAN) injection 1 mg (COMPLETED) 1 mg, Intravenous, NOW, 1 dose, On Ruby 03/24/18 at 1145 1139 ($ Given - Prov ider: Asmita Moffett, EMT-P) documented in this encounter Care Teams Finishing Supervisor Plastic Sheets Relationship Specialty Start Date End Date EliazarBetty ferraro [facility] [address] [place] [address] PCP - General Manager Landscape 03/24/18 11/27/18 documented as of this encounter
--- OUTSIDE RECORDS SUMMARY | 2024-09-18 05:30 | XMS_ITS | Encounter Summary ---
Author Organization [facility] Address [address] [place] [address] Care Team Providers Care Operator Lights Name Role Phone Unavailable Primary Care Provider Unavailabl e Encounter Details Date Type Department Care Team (Latest Contact Info) Description 02/26/2017 1:02 PM CDT - 02/26/2017 11:59 PM CDT Hospital Encounter [facility] MATERNAL/ EVALUATION UNIT [address] [facility] [address] [facility] [place] [address] Jessica Fajardo MD [address] [facility] [place] [address] Discharge Disposition: Home or Self [...] st Contact Info) Description 09/19/2024 8:15 AM CLOCK MAKER Hospital Encounter [facility]aternal & Care [address] [place], [place] [id number] documented as of this encounter Procedures Procedure Name Priority Date/Time Associated Diagnosis Comments BIOPHYSICAL PROFILE W NST Routine 02/26/2017 2:51 PM CDT Uterine size date discrepancy , third trimester (HCC) documented in this encounter Results * [facility] BIOPHYSICAL PROFILE W NST (02/26/2017 2:51 PM CDT) Anatomical Region Laterality Modality Other 02/26/2017 2:51 PM CDT Narrative 02/26/2017 3:32 PM CDT ?[facility] ?PHONE: ??FAX: Pat. Name: ?MARNIE JONES Pat. No: ?[id number] Study Date: ?? 02/26/2017 ??2:51pm , Age: ? 1995, 21 Pregnancies: ?? 1 Height: ? 61 in Weight: ? 140 lb LMP: ?06/26/2016 GA by LMP: ?35w0d GA by 1st: ?35w0d GA Selected: ??35w0d (From First S) WILLIE: ?04/02/2017 Referring MD: Eliazar, , [facility] Supervisor Special Education: ??Sofia Asher RDMS BMI: ?26.45 Hist/Ind: ? [...] limits. TESTING: The biophysical profile score is 10/10 DOPPLER STUDIES: The umbilical artery Doppler S/D [...] MD <Electronic Signature> ??02/26/2017 03:32pm Dorothy Enrique HEEL SEAT SANDER-SUPERVISOR PAINTING SHIPYARD M ORDERABLES documented in this encounter Visit Diagnoses Diagnosis Uterine size date discrepancy , third trimester ([facility]) Encounter for maternal care for suspected poor [...]
--- OUTSIDE RECORDS SUMMARY | 2024-09-18 05:30 | XMS_ITS | Encounter Summary ---
Author Organization [facility] Address [facility] [facility] [place] [address] Care Team Providers Care Job Developer Name Role Phone Brian Velarde DO Primary Care Provider Andres Angela MD Unavailable [phone] Reason for Visit * Reason Onset Date Comments Forms 01/04/2019 FMLA Encounter Details Date Type Department Care Team (Late st Contact Info) Description 01/04/2019 Telephone [facility] - Family Medicine [address] [place] [address] Brian Velarde, DO [address] [place] [phone] Forms (FMLA) Social History Tobacco Use Types [...] * Telephone Encounter - Yamilex Sena - 01/05/2019 2:56 PM CDT FMLA & Physician's Statement forms have been completed and signed by the doctor. Patient made aware of same. Form placed up front for filler picker and $20 fee needs to be collected. Scanned document into the patient's chart. * Telephone Encounter - Yamilex Sena - 01/05/2019 12:14 PM CDT Filled out FMLA & Physician's Statement forms and placed in doctors pod to be signed. * Telephone Encounter - Yamilex Sena - 01/05/2019 12:11 PM CDT Received FMLA & Physician's Statement forms from [employer] for the patient. Patient states that she has been out of work since 12/08/18 and is returning to work on 01/18/19. * Telephone Encounter - Yamilex Sena - 01/04/2019 2:42 PM CDT Andreia called stating that the patient's Short Term Disability was denied and that now they are trying to get her approved for FMLA. Requesting the following information: date commenced and if the duration of the condition is from 12/08/18 - 12/15/18. Told the lady from [employer] that I was not surewhat dates the patient missed because we do not have any return to work letters on file. Claims that they will be sending over a FMLA form instead. Waiting on the FMLA form. documented in this encounter Plan of Treatment Upcoming Encounters Date Type Department Care Team (Late st Contact Info) Description 09/19/2024 8:15 AM ENGINEERING INTERN Hospital Encounter [facility] M[facility] & Care [address] [phone] documented as of this encounter Visit Diagnoses Not on filedocumented in this encounter Care Teams Job Developer Relationship Specialty Start Date End Date Brian Velarde DO PCP - General Family Medicine 11/28/18 04/15/23 Andres Angela MD Psychiatry 12/16/18 documented as of this encounter
--- OUTSIDE RECORDS SUMMARY | 2024-09-18 05:31 | XMS_ITS | Encounter Summary ---
Author Organization [facility] Address [address] [place] [address] Care Team Providers Care Machining Technician Name Role Phone None, Pcp Primary Care Provider Unavailabl e Reason for Visit * Reason Comments Pain Abdominal pain to upper abdome n that began last night, some mucous emesis. stooled 2 days ago. denies fever or diarrhea. Encounter Details Date Type Department Care Team (Late st Contact Info) Description 12/04/2012 3:12 PM CDT - 12/04/2012 5:43 PM CDT Emergency ER at [address] [address] Emmy Mccoy APRN-KULWINDER Abdominal pain, epigastric Discharge Disposition: Home or Self Care Social History Tobacco Use Types Packs/Day Years Used Date Smoking Tobacco: Never Assessed Sex and Gender Information Value Date Recorded Sex Assigned at Not on file Gender Identity Not on file Sexual Orientation Not on file documented as of this encounter Last Filed Vital Signs Vital Sign Reading Time Taken Comments Blood Pressure 114/60 12/04/2012 5:35 PM CDT Pulse 68 12/04/2012 5:35 PM CDT Temperature 36 ??C (96.8 ??F) 12/04/2012 3:16 PM CDT Respiratory Rate 16 12/04/2012 5:35 PM CDT Oxygen Saturation - - Inhaled Oxygen Concentration - - Weight 49.4 kg (108 lb 14.5 oz) 12/04/2012 3:16 PM CDT Height - - Body Mass Index - - documented in this encounter Discharge Instructions * Discharge Instructions* Emmy Mccoy RN,CPNP - 12/04/2012 5:35 PM CDT Images from the original note were not included. Abdominal Pain (Nonspecific) Your exam might not show the exact reason you have abdominal pain. Since there are many different causes of abdominal pain, another checkup and more tests may be needed. It is very important to follow up for lasting (persistent) or worsening symptoms. A possible cause of abdominal pain in any person who still has his or her appendix is acute appendicitis. Appendicitis is often hard to diagnose. Normal blood tests, urine tests, ultrasound, and CT scans do not completely rule out early appendicitis or other causes of abdominal pain. Sometimes, only the changes that happen over time will allow appendicitis and other causes of abdominal pain to be determined. Other potential problems that may require surgery may also take time to become more apparent. Because of this, it is important that youfollow all of the instructions below. HOME CARE INSTRUCTIONS ?? Rest as much as possible. ?? Do not eat solid food until your pain is gone. ?? While adults or children have pain: A diet of water, weak decaffeinated tea, broth or bouillon, gelatin, oral rehydration solutions (ORS), frozen ice pops, or ice chips may be helpful. ?? When pain is gone in adults or children: Start a light diet (dry toast, crackers, applesauce, orwhite rice). Increase the diet slowly as long as it does not bother you. Eat no dairy products (including cheese and eggs) and no spicy, fatty, fried, or high-fiber foods. ?? Use no alcohol, caffeine, or cigarettes. ?? Take your regular medicines unless your caregiver told you not to. ?? Take any prescribed medicine as directed. ?? Only take [id number] or prescription medicines for pain, discomfort, or fever as directed by your caregiver. Do not give aspirin to children. If your caregiver has given you a follow-up appointment, it is very important to keep that appointment. Not keeping the appointment could result in a permanent injury and/or lasting (chronic) pain and/or disability. If there is any problem keeping the appointment, you must call to reschedule. SEEK IMMEDIATE MEDICAL CARE IF: ?? Your pain is not gone in 24 hours. ?? Your pain becomes worse, changes location, or feels different. ?? You or your child has an oral temperature above 102?? F (38.9?? C), not controlled by medicine. ?? Your baby is older than 3 months with a rectal temperature of 102?? F (38.9?? C) or higher. ?? Your baby is 3 months old or younger with a rectal temperature of 100.4?? F (38?? C) or higher. ?? You have shaking chills. ?? You keep throwing up (vomiting) or cannot drink liquids. ?? There is blood in your vomit or you see blood in your bowel movements. ?? Your bowel movements become dark or black. ?? You have frequent bowel movements. ?? Your bowel movements stop (become blocked) or you cannot pass gas. ?? You have bloody, frequent, or painful urination. ?? You have yellow discoloration in the skin or whites of the eyes. ?? Your stomach becomes bloated or bigger. ?? You have dizziness or fainting. ?? You have chest or back pain. MAKE SURE YOU: ?? Understand these instructions. ?? Will watch your condition. ?? Will get help right away if you are not doing well or get worse. Document Released: 09/06/2006 Document Revised: 05/18/2012 Document Reviewed: 08/04/2010 ExitCare?? Patient Information ??2012 [employer]. * Discharge Instructions* Document, Scanned - 12/28/2012 8:57 PM CDT documented in this encounter ED Notes * Emmy Mccoy RN,VEDA - 12/04/2012 3:23 PM CDT Images from the original note were not included. EMERGENCY DEPARTMENT 12/04/2012 Dear Doctor, We had the pleasure of caring for your patient, Marnie Jones in our emergency department on 12/04/2012. A note from the provider(s) who cared for your patient is attached. Should you wish to access any laboratory results, please call . Should you wish to access any radiology results, please call , option 3. In addition, you can access patient information 24 hours a day, from any computer, through [employer], the online version of our electronic medical record. If you would like to use this service, please call Mita Palomares, Connectivity Coordinator, at . We appreciate the opportunity to care for your patients. If you would like additional information, please call the emergency department directly at . Sincerely, Emmy Mccoy RN,CPNP Division of Emergency Medicine [facility], ME [facility] [place] I DESIGNATED EMERGENCY DEPARTMENT Provider contact with the patient: 12/04/2012 15:23 Marnie Jones [id number] [facility] EMERGENCY DEPT History Chief Complaint Patient presents with ??? Pain Abdominal pain to upper abdomen that began last night, some mucous emesis. stooled 2 days ago. denies fever or diarrhea. HPI Comments: Pain across top of abdomen pain since last night that is intermittent. Currently not in any pain but feels it coming on. No interventions at home. Pain is worse with eating. Decreased appetite. No solids or fluid intake today thus far, time is 1530. [place] nausea last night in the evening and small amount of clear mucus came up. Last poop was normal on Wednesday. Urinated this morning none since Last period was: Oct 28, 2012. Normal menses each month that last 5 days. Sexually active with one male partner currently with no consistent condom use. No std or pregnancies in past ever. Denies every being tested for stds. Mother aware of sexually activity. Past Medical History Diagnosis Date ??? NEGATIVE PAST MEDICAL HISTORY - SEE PROBLEM LIST Past Surgical History Procedure Date ??? Negative surgical history Medications No current outpatient prescriptions on file. Review of Systems Review of Systems Constitutional: Positive for activity change and appetite change. Negative for fever. HENT: Negative for congestion, sore throat and rhinorrhea. Respiratory: Negative for cough. Gastrointestinal: Positive for vomiting and abdominal pain. Negative for diarrhea, constipation andblood in stool. Genitourinary: Positive for decreased urine volume. Negative for dysuria, urgency, frequency, flankpain, vaginal bleeding, vaginal discharge, difficulty urinating, vaginal pain and pelvic pain. Neurological: Positive for dizziness (currently). All other systems reviewed and are negative. BP 117/79 Pulse 104 Temp 96.8 ??F Resp 24 Wt 49.4 kg (108 lb 14.5 oz) Physical Exam Physical Exam Nursing note and vitals reviewed. Constitutional: She is oriented to person, place, and time. She appears well- developed and well-nourished. No distress. AA female thin with multiple piercings including tongue and navel and tattoos HENT: Head: Normocephalic. Right Ear: Tympanic membrane and external ear normal. Left Ear: Tympanic membrane and external ear normal. Nose: Nose normal. Mouth/Throat: Oropharynx is clear and moist. Eyes: Pupils are equal, round, and reactive to light. Right eye exhibits no discharge. Left eye exhibits no discharge. Neck: Normal range of motion. Neck supple. Cardiovascular: Normal rate, regular rhythm, normal heart sounds and intact distal pulses. Pulmonary/Chest: Effort normal and breath sounds normal. No respiratory distress. She has no wheezes. She has no rales. She exhibits no tenderness. Abdominal: Soft. Bowel sounds are normal. She exhibits no distension and no mass. There is tenderness (to upper abdomen near xiphoid process in center). There is no rebound and no guarding. Musculoskeletal: Normal range of motion. Lymphadenopathy: She has no cervical adenopathy. Neurological: She is alert and oriented to person, place, and time. Skin: Skin is warm and dry. Procedures Procedures Lab/SPO2 Interpretation Progress Notes ED Course po zofran given, resolves nausea, drinks small amount of water and eats candy with no difficulty. Urinates. States she is no longer in pain, I talked myself out of it. Given sandwich, chips and 6 oz juice and takes in with no difficulty. Denies dizziness, feeling well with no pain. Results for orders placed during the hospital encounter of 12/04/12 HCG URINE QUALITATIVE - POCT (IP) BEAKER Component Value Range HCG Qual Urine Negative Negative QC Verified Yes Yes URINALYSIS ROUTINE AUTO Component Value Range Color UA Maryellen (*) Straw, Yellow, Dark Yellow Clarity UA Slt Cloudy (none) Specific Perkins UA >=1.030 1.005-1.030 pH UA 6.0 5.0-8.0 Protein UA 1+ (*) Negative Blood UA 3+ (*) Negative Leukocyte UA Negative Negative Nitrite UA Negative Negative Glucose UA Negative Negative Ketone UA Negative Negative Bili UA 1+ (*) Negative Urobilinogen UA 1.0 0.1-1.0 EU/dL URINALYSIS MICROSCOPIC ONLY Component Value Range RBC UA >100 (*) 0-2, 2-5 # /hpf WBC UA 5-10 (*) 0-2, 2-5 # /hpf Bacteria UA Trace None Seen, Trace Epithelial Cell UA 2-5 0-2, 2-5 Mucus 1+ (none) Medical Decision Making I have reviewed the: Nursing Notes and Vitals. I have interpreted the following results: Labs. I have discussed the case with Family/Caregiver. Plan: Abdominal pain most likely due to poor food intake. hcg neg, urine most likely on menses given no leuk, nitrites, high wbc's Std screening pending. If positive, may call mother or pt or sister, all aware of sexual activity. Encourage 3 meals and 3 snacks per day, no more than 4 hours between meals and snacks. Monitor bowel movements. Return with abdominal pain, fever, vomiting or diarrhea, or any other concerns. Pt and sister verbalizes understanding to plan of care. Patient discharged alert, active, and in nodistress. Orders Placed This Encounter ??? CHLAMYDIA + GC AMPLIFIED PROBE Standing Status: Standing Number of Occurrences: 1 Standing Expiration Date: ??? CULTURE URINE Standing Status: Standing Number of Occurrences: 1 Standing Expiration Date: ??? URINALYSIS ROUTINE AUTO Standing Status: Standing Number of Occurrences: 1 Standing Expiration Date: ??? URINALYSIS MICROSCOPIC ONLY Standing Status: Standing Number of Occurrences: 1 Standing Expiration Date: ??? HCG URINE QUALITATIVE - POCT (IP) BEAKER Standing Status: Standing Number of Occurrences: 1 Standing Expiration Date: ??? HCG URINE QUALITATIVE - POCT (IP) BEAKER Standing Status: Standing Number of Occurrences: 1 Standing Expiration Date: ??? ondansetron (disintegrating) (ZOFRAN ODT) tablet 4 mg Sig: Clinical Impression Final diagnoses: Abdominal pain, epigastric documented in this encounter Miscellaneous Notes * Miscellaneous Scans - Document, Scanned - 12/24/2012 7:59 AM CDT documented in this encounter Plan of Treatment Upcoming Encounters Date Type Department Care Team (Late st Contact Info) Description 09/19/2024 8:15 AM DATAPOWER CONSULTANT Hospital Encounter [facility] [address] [place], [place] [id number] Scheduled Orders Name Type Priority Associated Diagnoses Order Schedule HCG URINE QUALITATIVE - POCT (IP) BEAKER Point of Care Testing Routine ONCE for 1 Occurrences starting 12/04/2012 until 12/04/2012 documented as of this encounter Procedures Procedure Name Priority Date/Time Associated Diagnosis Comments HCG URINE QUALITATIVE - POCT (IP) BEAKER STAT 12/04/2012 4:24 PM CDT CHLAMYDIA + GC AMPLIFIED PROBE STAT 12/04/2012 4:21 PM CDT URINALYSIS REFLEX TO MICROSCOPIC NO CULTURE STAT 12/04/2012 4:19 PM CDT CULTURE URINE STAT 12/04/2012 4:19 PM CDT URINE MICROSCOPIC ONLY STAT 12/04/2012 4:19 PM CDT documented in this encounter Results * HCG URINE QUALITATIVE - POCT (IP) BEAKER (12/04/2012 4:24 PM CDT) HCG Qual Urine Negative Negative [facility] POCT TESTING QC Verified Yes Yes [facility] PO CT TESTING Urine specimen (specimen) URINE / Unknown 12/04/2012 4:24 PM CDT Emmy Mccoy APRN-KULWINDER LAB - POINT OF CAR E ORDERABLES [facility] POCT TESTING [address] [place] [place] [address] * CHLAMYDIA + GC AMPLIFIED PROBE (12/04/2012 4:21 PM CDT) Chlamydia Amplified Probe Negative Negative 12/05/2012 2:12 PM CDT [facility] GC Amplified Probe Negative Negative 12/05/2012 2:12 PM CDT [facility] Urine specimen (specimen) URINE / Unknown 12/04/2012 4:21 PM CDT 12/04/2012 4:28 PM CDT Emmy Frediskrunal [facility] LAB - MICROBIOLOGY ORDERABLES Performing Organization Address [facility] de Phone Number [facility] [address] [place] [address] * (ABNORMAL) CULTURE URINE (12/04/2012 4:19 PM CDT) Culture 10,000-50,000 CFU/mL Streptococcus agalactiae (Group B)(A) 12/06/2012 12:00 PM CDT [facility]CRO[facility] Urine specimen (specimen) URINE SPECIMEN OBTAINED BY CLEAN CATCH PROCEDURE / Unknown 12/04/2012 4:19 PM CDT 12/04/2012 4:28 PM CDT Narrative [facility] MICRO[facility] - 12/06/2012 12:00 PM CDT Susceptibility testing of penicillin, other beta-lactam antibiotics, and vancomycin is not necessary for beta-hemolytic streptococci groups A,B,C and G because resistant strains have not been recognized. Susceptibility testing of penicillin, other beta-lactam antibiotics, and vancomycin is not necessary for beta-hemolytic streptococci groups A,B,C and G because resistant strains have not been recognized. Emmy Mccoy LIFT OPER[facility] LAB - MICROBIOLOGY ORDERABLES Performing Organization Address [facility] de Phone Number [facility] MICROBI[facility] [address] * (ABNORMAL) URINALYSIS ROUTINE AUTO (12/04/2012 4:19 PM CDT) Color UA Maryellen(A) Straw, Yellow, Dark Yellow 12/04/2012 4:41 PM CDT [facility] Clarity UA Slt Cloudy (none) 12/04/2012 4:41 PM CDT [facility] Specific Perkins UA >=1.030 1.005 - 1.030 12/04/2012 4:41 PM CDT [facility] pH UA 6.0 5.0 - 8.0 12/04/2012 4:41 PM CDT [facility] Protein UA 1+(A) Negative 12/04/2012 4:41 PM CDT [facility] Blood UA 3+(A) Negative 12/04/2012 4:41 PM CDT [facility] Leukocyte UA Negative Negative 12/04/2012 4:41 PM CDT [facility] Nitrite UA Negative Negative 12/04/2012 4:41 PM CDT [facility] Glucose UA Negative Negative 12/04/2012 4:41 PM CDT [facility] Ketone UA Negative Negative 12/04/2012 4:41 PM CDT [facility] Bilirubin UA 1+(A) Negative 12/04/2012 4:41 PM T [facility] Urobilinogen UA 1.0 0.1 - 1.0 EU/dL 12/04/2012 4:41 PM T [facility] Urine specimen (specimen) URINE SPECIMEN OBTAINED BY CLEAN CATCH PROCEDURE / Unknown 12/04/2012 4:19 PM CDT 12/04/2012 4:28 PM CDT Emmy Mccoy LIFT OPERATOR-CASE FINISHING MACHINE ADJUSTER LAB - URINALYSIS O RDERABLES Performing Organization Address City/State/[facility] Co de Phone Number [facility] [address] [place] [address] * (ABNORMAL) URINALYSIS MICROSCOPIC ONLY (12/04/2012 4:19 PM CDT) RBC UA >100(A) 0-2, 2-5 # /hpf 12/04/2012 4:51 PM T [facility] WBC UA 5-10(A) 0-2, 2-5 # /hpf 12/04/2012 4:51 PM T [facility] Bacteria UA Trace None Seen, Trace 12/04/2012 4:51 PM CDT [facility] Epithelial Cell UA 2-5 0-2, 2-5 12/04/2012 4:51 PM CDT [facility] Mucus UA 1+ (none) 12/04/2012 4:51 PM T [facility] Urine specimen (specimen) URINE SPECIMEN OBTAINED BY CLEAN CATCH PROCEDURE / Unknown 12/04/2012 4:19 PM CDT 12/04/2012 4:28 PM CDT Emmy Mccoy LIFT OPERATOR-CASE FINISHING MACHINE ADJUSTER LAB - URINALYSIS O RDERABLES [facility] [address] [place] [address] documented in this encounter Visit Diagnoses Diagnosis Abdominal pain, epigastric Encounter for maternal care for suspected poor growth in roman in third trimester ([facility])- Primary Aversion to food: limiting protein intake Feeding difficulties and mismanagement Abnormal ultrasound: dopplers elevated S/d ratio Abnormal findings on screening High-risk in third trimester (HCC) Previous baby with growth restriction Encounter for screening ([facility]) documented in this encounter Administered Medications Inactive Administered Medications - up to 3 most recent administrations Medication Order MAR Action Action Date Dose Rate Site ondansetron (disintegrating) (ZOFRAN ODT) tablet 4 mg 4 mg (0.081 mg/kg), Sublingual, ONCE, 1 dose, On 12/04/12 at 1600 $ Given 12/04/2012 3:45 PM CDT 4 mg documented in this encounter Active and Recently Administered Medications Times are shown in CDT. Scheduled Medication Order 12/02/2012 12/03/2012 12/04/2012 ondansetron (disintegrating) (ZOFRAN ODT) tablet 4 mg (COMPLETED) 4 mg (0.081 mg/kg), Sublingual, ONCE, 1 dose, On 12/04/12 at 1600 1545 ($ Given - Prov ider: Renu Mercedes RN) documented in this encounter Care Teams Machining Technician Relationship Specialty Start Date End Date None, Pcp [place] [address] PCP - General Nurse Practitioner 12/04/12 documented as of this encounter
--- OUTSIDE RECORDS SUMMARY | 2024-09-18 05:31 | XMS_ITS | Encounter Summary ---
Author Organization [facility] Address [address] [place] [address] Care Team Providers Care Stress Engineer Name Role Phone Unavailable Primary Care Provider Unavailabl e Reason for Visit * Reason Comments Appetite Suppression Pt here with poor a ppetite x 3 days. Pt reports 7 weeks . reports nausea with minimal vomting x 2 days. denies other complaints. Encounter Details Date Type Department Care Team (Late st Contact Info) Description 08/18/2016 8:27 PM DELIVERER FOOD - 08/18/2016 10:22 PM DELIVERER FOOD Emergency ER at [place] [id number] Nausea/vomiting in (HCC) Discharge Disposition: Home or Self Care Social History Tobacco Use Types Packs/Day Years Used Date Smoking Tobacco: Never Alcohol Use Standard Drinks/Week Comments No 0 (1 standard drink = 0.6 oz pur e alcohol) Sex and Gender Information Value Date Recorded Sex Assigned at Not on file Gender Identity Not on file Sexual Orientation Not on file documented as of this encounter Last Filed Vital Signs Vital Sign Reading Time Taken Comments Blood Pressure 115/62 08/18/2016 10:19 PM DELIVERER FOOD Pulse 64 08/18/2016 10:19 PM DELIVERER FOOD Temperature 36.6 ??C (97.8 ??F) 08/18/2016 10:[address] Respiratory Rate 18 08/18/2016 7:31 PM DELIVERER FOOD Oxygen Saturation 99% 08/18/2016 10:19 PM DELIVERER FOOD Inhaled Oxygen Concentration - - Weight 67.6 kg (149 lb) 08/18/2016 7:31 PM DELIVERER FOOD Height 154.9 cm (5' 1 ) 08/18/2016 7:31 PM DELIVERER FOOD Body Mass Index 28.15 08/18/2016 7:31 PM DELIVERER FOOD documented in this encounter Discharge Instructions * Discharge Instructions* Terry García PA-C - 08/18/2016 10:11 PM DELIVERER FOOD Hyperemesis Gravidarum Hyperemesis gravidarum is a severe form of nausea and vomiting that happens during . Hyperemesis is worse than morning sickness. It may cause you to have nausea or vomiting all day for many days. It may keep you from eating and drinking enough food and liquids. Hyperemesis usually occurs during the first half (the first 20 weeks) of . It often goes away once a woman is in her second half of . However, sometimes hyperemesis continues through an entire . CAUSES The cause of this condition is not completely known but is thought to be related to changes in the body's hormones when . It could be from the high level of the hormone or an increase in estrogen in the body. SIGNS AND SYMPTOMS ?? Severe nausea and vomiting. ?? Nausea that does not go away. ?? Vomiting that does not allow you to keep any food down. ?? Weight loss and body fluid loss (dehydration). ?? Having no desire to eat or not liking food you have previously enjoyed. DIAGNOSIS Your health care provider will do a physical exam and ask you about your symptoms. He or she may also order blood tests and urine tests to make sure something else is not causing the problem. TREATMENT You may only need medicine to control the problem. If medicines do not control the nausea and vomiting, you will be treated in the hospital to prevent dehydration, increased acid in the blood (acidosis), weight loss, and changes in the electrolytes in your body that may harm the unborn baby (fetus). You may need IV fluids. HOME CARE INSTRUCTIONS ?? Only take [id number] or prescription medicines as directed by your health care provider. ?? Try eating a couple of dry crackers or toast in the morning before getting out of bed. ?? Avoid foods and smells that upset your stomach. ?? Avoid fatty and spicy foods. ?? Eat 5-6 small meals a day. ?? Do not drink when eating meals. Drink between meals. ?? For snacks, eat high-protein foods, such as cheese. ?? Eat or suck on things that have rosemary in them. Rosemary helps nausea. ?? Avoid food preparation. The smell of food can spoil your appetite. ?? Avoid iron pills and iron in your multivitamins until after 3-4 months of being . However, consult with your health care provider before stopping any prescribed iron pills. SEEK MEDICAL CARE IF: ?? Your abdominal pain increases. ?? You have a severe headache. ?? You have vision problems. ?? You are losing weight. SEEK IMMEDIATE MEDICAL CARE IF: ?? You are unable to keep fluids down. ?? You vomit blood. ?? You have constant nausea and vomiting. ?? You have excessive weakness. ?? You have extreme thirst. ?? You have dizziness or fainting. ?? You have a fever or persistent symptoms for more than 2-3 days. ?? You have a fever and your symptoms suddenly get worse. MAKE SURE YOU: ?? Understand these instructions. ?? Will watch your condition. ?? Will get help right away if you are not doing well or get worse. Document Released: 09/06/2006 Document Revised: 06/27/2014 Document Reviewed: 04/18/2014 ExitCare?? Patient Information ??2015 [employer]. This information is not intended to replace advice given to you by your health care provider. Make sure you discuss any questions you have with your health care provider. VERER FOOD documented in this encounter Medications at Time of Discharge Medication Sig Dispensed Refills Start Date End Date famotidine (PEPCID) 20 MG tablet Take 1 Tab by mouth once daily as needed for Heartburn (Indigestion) 30 Tab 08/18/2016 11/25/2016 metoclopramide, disintegrating, (METOZOLV ODT) 5 MG tablet Take 1 Tab by mouth every 6 hours as needed for Nausea/Vomiting 20 Tab 08/18/2016 10/06/2016 naproxen sodium (ANAPROX DS) 550 MG tablet Take 1 Tab by mouth 2 times daily as needed for Pain. 20 Tab 0 01/19/2015 09/04/2016 documented as of this encounter ED Notes * Terry García PA-C - 08/18/2016 8:40 PM CST Provider contact with the patient: 08/18/2016 20:40 Marnie Jones [id number] [facility] EMERGENCY DEPARTMENT History Chief Complaint Patient presents with ??? Appetite Suppression Pt here with poor appetite x 3 days. Pt reports 7 weeks . reports nausea with minimal vomting x 2 days. denies other complaints. Chief complaint narrative was entered by triage nurse, not by physician. HPI 8:40 PM Marnie Jones, a 20 y.o. female who is approximately 7 weeks with no pertinent past medical hx presents to the ER c/o nausea and a decreased appetite x 4 days with associated epigastric pain. She has been unable to tolerate food, but has been drinking water and Gatorade daily.She denies any episode of vomiting. The abdominal pain is non-radiating and rated 7/10 and located the epigastric region. She has taken Tums without relief. Denies any diarrhea or constipation. Her last BM was 2 days ago and was normal. No blood in stool. Braxton any SALINAS, lightheadedness or dizziness,fever, or chills. This is the pt's first . Pt has an appointment to see an OBGYN next month No other complaints or modifying factors at this time. PCP: No primary care provider on file. Past Medical History Diagnosis Date ??? Chlamydia contact, treated 07/29/13 ??? NEGATIVE PAST MEDICAL HISTORY - SEE PROBLEM LIST Past Surgical History Procedure Laterality Date ??? Negative surgical history No family history on file. History Social History ??? Marital status: Single Spouse name: N/A ??? Number of children: N/A ??? Years of education: N/A Occupational History ??? Not on file. Social History Main Topics ??? Smoking status: Never Smoker ??? Smokeless tobacco: Not on file ??? Alcohol use: No ??? Drug use: No ??? Sexual activity: Not on file Other Topics Concern ??? Not on file Social History Narrative Review of Systems Review of Systems Constitutional: Negative for chills and fever. Decreased appetite HENT: Negative for ear pain and sore throat. Eyes: Negative for blurred vision and double vision. Respiratory: Negative for shortness of breath and wheezing. Cardiovascular: Negative for chest pain and palpitations. Gastrointestinal: Positive for abdominal pain and nausea. Negative for blood in stool, constipation, diarrhea, melena and vomiting. Genitourinary: Negative for dysuria and hematuria. Musculoskeletal: Negative for back pain and neck pain. Skin: Negative for itching and rash. Neurological: Negative for dizziness, sensory change, speech change, focal weakness and headaches. Endo/Heme/Allergies: Does not bruise/bleed easily. Psychiatric/Behavioral: Negative for depression, memory loss and suicidal ideas. All other systems reviewed and are negative. Physical Exam BP 139/76 Pulse 81 Temp 98.1 ??F Resp 18 Ht 1.549 m (5' 1 ) Wt 67.6 kg (149 lb) LMP (LMP Unknown) SpO2 98% BMI 28.15 kg/m2 Physical Exam Constitutional: She is oriented to person, place, and time. She appears well- developed and well-nourished. HENT: Head: Normocephalic and atraumatic. Eyes: Conjunctivae and EOM are normal. Pupils are equal, round, and reactive to light. Neck: No JVD present. Cardiovascular: Normal rate, regular rhythm and normal heart sounds. Pulmonary/Chest: Effort normal and breath sounds normal. No stridor. No respiratory distress. Abdominal: Soft. She exhibits no distension. There is tenderness (epigastric). Musculoskeletal: Normal range of motion. She exhibits no tenderness or deformity. Neurological: She is alert and oriented to person, place, and time. Skin: Skin is warm and dry. Psychiatric: She has a normal mood and affect. Her behavior is normal. Nursing note and vitals reviewed. Medications Current Outpatient Prescriptions Medication Sig Dispense Refill ??? famotidine (PEPCID) 20 MG tablet Take 1 Tab by mouth once daily as needed for Heartburn (Indigestion) 30 Tab 0 ??? metoclopramide, disintegrating, (METOZOLV ODT) 5 MG tablet Take 1 Tab by mouth every 6 hours asneeded for Nausea/Vomiting 20 Tab 0 ??? naproxen sodium (ANAPROX DS) 550 MG tablet Take 1 Tab by mouth 2 times daily as needed for Pain. 20 Tab 0 Procedures Procedures ECG Interpretation ECG Interpretation Lab Interpretation Oxygen Saturation Interpretation The oxygen saturation level is: 100%. The patient was on Room Air for the saturation measurement. Measurement frequency: Spot Check. Oxygen saturation interpretation is Normal. Intervention(s) used: None. Hospital Encounter on 08/18/16 COMPREHENSIVE METABOLIC PANEL Result Value Ref Range Glucose 76 74 - 106 mg/dL Sodium 137 136 - 145 mmol/L Potassium 4.4 3.5 - 5.1 mmol/L Chloride 104 98 - 107 mmol/L CO2 26 22 - 31 mmol/L Calcium 9.3 8.5 - 10.1 mg/dL Anion Gap 7 5 - 20 mmol/L BUN 6 (L) 7 - 21 mg/dL Creatinine 0.64 0.50 - 1.30 mg/dL Alk Phos 52 38 - 126 U/L ALT/SGPT 29 13 - 61 U/L AST/SGOT 15 5 - 40 U/L Protein Total 7.8 6.4 - 8.2 gm/dL Albumin 3.5 3.4 - 5.0 gm/dL Bili Total 0.2 0.2 - 1.0 mg/dL eGFR MDRD >60 >60 mL/min/1.73m2 eGFR MDRD AFR AMR >60 >60 mL/min/1.73m2 LIPASE BLOOD Result Value Ref Range Lipase 122 10 - 220 U/L CBC W AUTO DIFFERENTIAL Result Value Ref Range WBC 11.8 (H) 4.4 - 10.7 x10E9/L WBC Corrected x10E9/L RBC 4.37 3.80 - 5.20 x10E12/L Hgb 11.9 (L) 12.0 - 15.6 gm/dL HCT 36.6 35.9 - 45.5 % MCV 83.8 80.7 - 98.3 fl MCH 27.2 26.7 - 34.0 pg MCHC 32.5 30.8 - 35.9 gm/dL Plt Ct 294 153 - 416 x10E9/L RDW-CV 15.9 (H) 12.1 - 14.9 % MPV 11.5 9.4 - 12.9 fl Neutro 65.1 44.0 - 73.0 % Lymph 22.9 20.0 - 43.0 % Clayton 9.6 5.0 - 13.0 % Eos 1.7 0.0 - 6.0 % Baso 0.3 0.0 - 2.0 % Immature Grans 0.4 0 - 1 % Neutro Abs 7.69 (H) 2.01 - 7.14 x10E9/L Lymph Abs 2.71 1.07 - 3.94 x10E9/L Clayton Abs 1.14 (H) 0.26 - 1.07 x10E9/L Eosin Abs 0.20 0 - 0.47 x10E9/L Baso Abs 0.03 0 - 0.08 x10E9/L Immature Grans (Abs) 0.05 0.00 - 0.06 x10E9/L NRBC Auto 0 /100 WBC URINALYSIS ROUTINE W/REFLEX TO CULTURE Result Value Ref Range Color UA Yellow Straw, Yellow, Dark Yellow Clarity UA Cloudy Specific Baker UA 1.014 1.005 - 1.030 pH UA 6.5 5.0 - 8.0 pH Protein UA Negative Negative Blood UA Negative Negative Leukocyte UA Negative Negative Nitrite UA Negative Negative Glucose UA Negative Negative Ketone UA Negative Negative Bili UA Negative Negative Urobilinogen UA 1.0 0.1 - 1.0 EU/dL Reflex Status Culture not indicated No orders to display Progress Notes Initial plan: CBC, CMP, UA, lipase, Reglan, Pepcid, and fluids 10:10 PM Rechecked pt -patient resting comfortably and feeling better. Tolerating p.o. water and crackers well. I discussed the results of diagnostic studies, my clinical impression, and the plan forfurther treatment with the patient. Patient agrees with plan and discharge at this time, all questions addressed. Instructed the pt to follow up with her OBGYN on her scheduled appointment next month. Pt is medically stable for discharge at this time. I have given the [...] the discharge instructions. ED Course ED Course There is no data filed. Medical Decision Making I have reviewed the: Previous Chart, Nursing Notes, Vitals. I have interpreted the following results: Labs, Oxygen Saturation. Orders Placed This Encounter ??? COMPREHENSIVE METABOLIC PANEL ??? LIPASE BLOOD ??? CBC W AUTO DIFFERENTIAL ??? URINALYSIS ROUTINE W/REFLEX TO CULTURE ??? metoclopramide (REGLAN) injection 10 mg ??? famotidine (PEPCID) injection 20 mg ??? 0.9% NaCl IV Bolus ??? famotidine (PEPCID) 20 MG tablet ??? metoclopramide, disintegrating, (METOZOLV ODT) 5 MG tablet Clinical Impression Final diagnoses: Nausea/vomiting in New Medications: Discharge Medication List as of 08/18/2016 10:11 PM START taking these medications Details famotidine (PEPCID) 20 MG tablet Disp-30 Tab, R-0, Take 1 Tab by mouth once daily as needed for Heartburn (Indigestion), Print metoclopramide, disintegrating, (METOZOLV ODT) 5 MG tablet Disp-20 Tab, R-0, Take 1 Tab by mouth every 6 hours as needed for Nausea/Vomiting, Print I have advised the patient to follow-up with: OBGYN Go to Keep your scheduled appointment with your OBGYN next month. Disposition: Discharged By signing my name below, Binh Kramer, attest that this documentation has been prepared under the direction and in the presence of MARGIE Gibson Electronically Signed: Nohemi Wolfe. 08/18/2016. Time 10:10 PM Provider Signature and Attestation Terry Kramer PA, personally performed the services described in this documentation. All medical record entries made by the scribe were at my direction and in my presence. I have reviewed the chart and agree that the record reflects my personal performance and is accurate and complete. MARGIE Gibson. 08/18/2016. Time 11:31 PM VERER [employer] documented in this encounter Plan of Treatment Upcoming Encounters Date Type Department Care Team (Late st Contact Info) Description 09/19/2024 8:15 AM DELIVERER FOOD Hospital Encounter [facility] [address] [place] [address] documented as of this encounter Procedures Procedure Name Priority Date/Time Associated Diagnosis Comments URINALYSIS REFLEX MICROSCOPIC REFLEX CULTURE STAT 08/18/2016 9:14 PM DELIVERER FOOD CBC W AUTO DIFFERENTIAL STAT 08/18/2016 9:13 PM DELIVERER FOOD COMPREHENSIVE METABOLIC PANEL STAT 08/18/2016 9:13 PM DELIVERER FOOD LIPASE BLOOD STAT 08/18/2016 9:13 PM DELIVERER FOOD documented in this encounter Results * URINALYSIS ROUTINE W/REFLEX TO CULTURE (08/18/2016 9:14 PM DELIVERER FOOD) Color UA Yellow Straw, Yellow, Dark Yellow 08/18/2016 9:31 PM DELIVERER FOOD [facility] Clarity UA Cloudy 08/18/2016 9:31 PM DELIVERER FOOD [facility] Specific Baker UA 1.014 1.005 - 1.030 08/18/2016 9:31 PM DELIVERER FOOD [facility] pH UA 6.5 5.0 - 8.0 pH 08/18/2016 9:31 PM DELIVERER FOOD [facility] Protein UA Negative Negative 08/18/2016 9:31 PM DELIVERER FOOD [facility] Blood UA Negative Negative 08/18/2016 9:31 PM DELIVERER FOOD [facility] Leukocyte UA Negative Negative 08/18/2016 9:31 PM DELIVERER FOOD [facility] Nitrite UA Negative Negative 08/18/2016 9:31 PM DELIVERER FOOD [facility] Glucose UA Negative Negative 08/18/2016 9:31 PM DELIVERER FOOD [facility] Ketone UA Negative Negative 08/18/2016 9:31 PM DELIVERER FOOD [facility] Bilirubin UA Negative Negative 08/18/2016 9:31 PM DELIVERER FOOD [facility] Urobilinogen UA 1.0 0.1 - 1.0 EU/dL 08/18/2016 9:31 PM DELIVERER FOOD [facility] Reflex Status Culture not indicated 08/18/2016 9:31 PM DELIVERER FOOD [facility] Urine URINE SPECIMEN OBTAINED BY CLEAN CATCH PROCEDURE / Unknown 08/18/2016 9:14 PM DELIVERER FOOD 08/18/2016 9:23 PM DELIVERER FOOD Terry García PA-C LAB - URIN ALYSIS ORDERABLES [facility] [id number] [place] [address] * (ABNORMAL) CBC W AUTO DIFFERENTIAL (08/18/2016 9:13 PM DELIVERER FOOD) WBC 11.8(H) 4.4 - 10.7 x10E9/L 08/18/2016 9:27 PM DELIVERER FOOD [facility] WBC Corrected x10E9/L 08/18/2016 9:27 PM [facility] RBC 4.37 3.80 - 5.20 x10E12/L 08/18/2016 9:27 PM [facility] Hemoglobin 11.9(L) 12.0 - 15.6 gm/dL 08/18/2016 9:27 PM [facility] Hematocrit 36.6 35.9 - 45.5 % 08/18/2016 9:27 PM [facility] MCV 83.8 80.7 - 98.3 fl 08/18/2016 9:27 PM [facility] MCH 27.2 26.7 - 34.0 pg 08/18/2016 9:27 PM [facility] MCHC 32.5 30.8 - 35.9 gm/dL 08/18/2016 9:27 PM [facility] Platelet Count 294 153 - 416 x10E9/L 08/18/2016 9:27 PM [facility] RDW-CV 15.9(H) 12.1 - 14.9 % 08/18/2016 9:27 PM [facility] MPV 11.5 9.4 - 12.9 fl 08/18/2016 9:27 PM [facility] Neutrophils % 65.1 44.0 - 73.0 % 08/18/2016 9:27 PM [facility] Lymphocytes % 22.9 20.0 - 43.0 % 08/18/2016 9:27 PM [facility] Monocytes % 9.6 5.0 - 13.0 % 08/18/2016 9:27 PM [facility] Eosinophils % 1.7 0.0 - 6.0 % 08/18/2016 9:27 PM [facility] Basophils % 0.3 0.0 - 2.0 % 08/18/2016 9:27 PM [facility] Immature Granulocytes 0.4 0 - 1 % 08/18/2016 9:27 PM [facility] Neutrophil Absolute 7.69(H) 2.01 - 7.14 x10E9/L 08/18/2016 9:27 PM [facility] Lymphocytes Absolute 2.71 1.07 - 3.94 x10E9/L 08/18/2016 9:27 PM [facility] Monocytes Absolute 1.14(H) 0.26 - 1.07 x10E9/L 08/18/2016 9:27 PM DELIVERER FOOD [facility] Eosinophils Absolute 0.20 0 - 0.47 x10E9/L 08/18/2016 9:27 PM [facility] Basophils Absolute 0.03 0 - 0.08 x10E9/L 08/18/2016 9:27 PM [facility] Immature Granulocytes Absolute 0.05 0.00 - 0.06 x10E9/L 08/18/2016 9:27 PM [facility] nRBC Auto 0 /100 WBC 08/18/2016 9:27 PM [facility] Blood BLOOD SPECIMEN / Unknown 08/18/2016 9:13 PM DELIVERER FOOD 08/18/2016 9:23 PM DELIVERER FOOD Terry CARLOSC LAB - SCOOBY TOLOGY ORDERABLES [facility] [id number] [place] [address] * LIPASE BLOOD (08/18/2016 9:13 PM DELIVERER FOOD) Lipase 122 10 - 220 U/L 08/18/2016 9:43 PM [facility] Blood BLOOD SPECIMEN / Unknown 08/18/2016 9:13 PM DELIVERER FOOD 08/18/2016 9:23 PM DELIVERER FOOD Terry CARLOSC LAB - CHEM ISTRY ORDERABLES Performing Organization Address City/[facility]/ZIP Co de Phone Number [facility] [address] [place] [address] * (ABNORMAL) COMPREHENSIVE METABOLIC PANEL (08/18/2016 9:13 PM DELIVERER FOOD) Glucose 76 74 - 106 mg/dL 08/18/2016 9:43 PM [facility] Sodium 137 136 - 145 mmol/L 08/18/2016 9:43 PM [facility] Potassium 4.4 3.5 - 5.1 mmol/L 08/18/2016 9:43 PM [facility] Chloride 104 98 - 107 mmol/L 08/18/2016 9:43 PM [facility] CO2 26 22 - 31 mmol/L 08/18/2016 9:43 PM [facility] Calcium 9.3 8.5 - 10.1 mg/dL 08/18/2016 9:43 PM DELIVERER FOOD [facility] Anion Gap 7 5 - 20 mmol/L 08/18/2016 9:43 PM DELIVERER FOOD [facility] BUN 6(L) 7 - 21 mg/dL 08/18/2016 9:43 PM [facility] Creatinine 0.64 0.50 - 1.30 mg/dL 08/18/2016 9:43 PM [facility] Alkaline Phosphatase 52 38 - 126 U/L 08/18/2016 9:43 PM DELIVERER FOOD [facility] ALT 29 13 - 61 U/L 08/18/2016 9:43 PM DELIVERER FOOD [facility] AST 15 5 - 40 U/L 08/18/2016 9:43 PM [facility] Protein Total 7.8 6.4 - 8.2 gm/dL 08/18/2016 9:43 PM [facility] Albumin 3.5 3.4 - 5.0 gm/dL 08/18/2016 9:43 PM [facility] Bilirubin Total 0.2 0.2 - 1.0 mg/dL 08/18/2016 9:43 PM [facility] eGFR by MDRD >60 >60 mL/min/1.7 3m2 08/18/2016 9:43 PM DELIVERER FOOD [facility] eGFR by MDRD >60 >60 mL/min/1.7 3m2 08/18/2016 9:43 PM [facility] Blood BLOOD SPECIMEN / Unknown 08/18/2016 9:13 PM DELIVERER FOOD 08/18/2016 9:23 PM DELIVERER FOOD Terry García PA-C LAB - CHEM ISTRY ORDERABLES [facility] [id number] [place] [address] documented in this encounter Visit Diagnoses Diagnosis Nausea/vomiting in (HCC) Unspecified vomiting of , unspecified as to episode of care Encounter for maternal care for suspected poor growth in roman in third trimester (HCC)- Primary Aversion to food: limiting protein intake Feeding difficulties and mismanagement Abnormal ultrasound: dopplers elevated S/d ratio Abnormal findings on screening High-risk in third trimester (HCC) Previous baby with growth restriction Encounter for screening (HCC) documented in this encounter Administered Medications Inactive Administered Medications - up to 3 most recent administrations Medication Order MAR Action Action Date Dose Rate Site 0.9% NaCl IV Bolus 1,000 mL, Administer over 30 Minutes, NOW, 1 dose, On Wed08/18/16 at 2100 $ Given 08/18/2016 9:08 PM DELIVERER FOOD 1,000 mL famotidine (PEPCID) injection 20 mg 20 mg, Intravenous, NOW, 1 dose, On Wed08/18/16 at 2099, Dilute 2 mL of injection with 0.9% NaCl or D5W solution to a volume of 5 to 10 ml. Push over a period of at least 2 minutes. $ Given 08/18/2016 9:08 PM DELIVERER FOOD 20 mg metoclopramide (REGLAN) injection 10 mg 10 mg, Intravenous, NOW, 1 dose, On Wed08/18/16 at 2100 $ Given 08/18/2016 9:08 PM DELIVERER FOOD 10 mg documented in this encounter Active and Recently Administered Medications Times are shown in DELIVERER FOOD. Scheduled Medication Order 08/16/2016 08/17/2016 08/18/2016 0.9% NaCl IV Bolus (COMPLETED) 1,000 mL, Administer over 30 Minutes, NOW, 1 dose, On Wed08/18/16 at 2099 2107 ($ Given - Prov ider: Arianna Sin RN)2137 (Due: Rx Stopped - Provider: Arianna Sin RN) famotidine (PEPCID) injection 20 mg (COMPLETED) 20 mg, Intravenous, NOW, 1 dose, On Wed08/18/16 at 2099, Dilute 2 mL of injection with 0.9% NaCl or D5W solution to a volume of 5 to 10 ml. Push over a period of at least 2 minutes. 2107 ($ Given - Prov ider: Arianna Sin RN) metoclopramide (REGLAN) injection 10 mg (COMPLETED) 10 mg, Intravenous, NOW, 1 dose, On Wed08/18/16 at 2099 2107 ($ Given - Prov ider: Arianna Sin RN) documented in this encounter
--- OUTSIDE RECORDS SUMMARY | 2024-09-18 05:31 | XMS_ITS | Encounter Summary ---
Author Organization [facility] Address [address] [place] [address] Care Team Providers Care Hardwood Floor Installation Helper Name Role Phone Unavailable Primary Care Provider Unavailabl e Reason for Visit * Reason Onset Date Comments LABS ONLY 09/07/2016 Encounter Details Date Type Department Care Team (Late st Contact Info) Description 09/07/2016 Telephone [facility] MATERNAL/ EVALUATION UNIT [address] [place] [address] Aguilar Adhikari MD [address] [facility] [place] [address] LABS ONLY Social History Tobacco Use Types Packs/Day Years Used Date Smoking Tobacco: Former Cigarettes Q uit: 07/24/2016 Comments:advised not to resu me Alcohol Use Standard Drinks/Week Comments No 0 (1 standard drink = 0.6 oz pur e alcohol) Comments Yes Sex and Gender Information Value Date Recorded Sex Assigned at Not on file Gender Identity Not on file Sexual Orientation Not on file documented as of this encounter Miscellaneous Notes * Telephone Encounter - Aguilar Adhikari MD - 09/07/2016 1:25 PM CST Called pt and informed of UTI. Macrobid sent to pharmacy. IS INTERVENTION COUNSELOR documented in this encounter Plan of Treatment Upcoming Encounters Date Type Department Care Team (Late st Contact Info) Description 09/19/2024 8:15 AM CRISIS INTERVENTION COUNSELOR Hospital Encounter [facility] Maternal & Care [address] [place] [id number] documented as of this encounter Visit Diagnoses Not on filedocumented in this encounter
--- OUTSIDE RECORDS SUMMARY | 2024-09-18 05:31 | XMS_ITS | Encounter Summary ---
Author Organization [facility] Address [address] [place] [address] Care Team Providers Care Car Seat Coverer Name Role Phone None, Pcp Primary Care Provider Unavailabl e Reason for Visit * Reason Comments Vaginal Bleeding Pt c/o pelvic crampi ng . States she has had vaginal spotting since yesterday. Pt also reports vaginal discharge. States she thinks she has a yeast infection. Encounter Details Date Type Department Care Team (Late st Contact Info) Description 07/29/2013 12:31 PM CENTERLESS GRINDER SET UP OPERATOR - 07/29/2013 2:33 PM CENTERLESS GRINDER SET UP OPERATOR Emergency ER at [address] [address] Bacterial vaginosis (Primary Dx) Discharge Disposition: Home or Self Care Social [...] Sign Reading Time Taken Comments Blood Pressure 133/80 07/29/2013 2:33 PM CENTERLESS GRINDER SET UP OPERATOR Pulse 90 07/29/2013 2:33 PM CENTERLESS GRINDER SET UP OPERATOR Temperature 36.6 ??C (97.9 ??F) 07/29/2013 12:[address] Respiratory Rate 15 07/29/2013 2:33 PM CENTERLESS GRINDER SET UP OPERATOR Oxygen Saturation 100% 07/29/2013 2:33 PM CENTERLESS GRINDER SET UP OPERATOR Inhaled Oxygen Concentration - - Weight 49.9 kg (110 lb) 07/29/2013 12:29 PM CENTERLESS GRINDER SET UP OPERATOR Height 154.9 cm (5' 1 ) 07/29/2013 12:29 PM CENTERLESS GRINDER SET UP OPERATOR Body Mass Index 20.78 07/29/2013 12:29 PM CENTERLESS GRINDER SET UP OPERATOR Body Mass Index Percentile 45.60% 07/29/2013 12: 29 PM CENTERLESS GRINDER SET UP OPERATOR Growth Chart: CDC (Girls, 2- 20 Years) documented in this encounter Discharge Instructions * Discharge Instructions* Milla Monique PA-C - 07/29/2013 2:04 PM CENTERLESS GRINDER SET UP OPERATOR Images from the original note were not included. Bacterial Vaginosis Bacterial vaginosis (BV) is a vaginal infection where the normal balance of bacteria in the vagina is disrupted. The normal balance is then replaced by an overgrowth of certain bacteria. There are several different kinds of bacteria that can cause BV. BV is the most common vaginal infection in women of childbearing age. CAUSES ?? The cause of BV is not fully understood. BV develops when there is an increase or imbalance of harmful bacteria. ?? Some activities or behaviors can upset the normal balance of bacteria in the vagina and put women at increased risk including: ?? Having a new sex partner or multiple sex partners. ?? Douching. ?? Using an intrauterine device (IUD) for contraception. ?? It is not clear what role sexual activity plays in the development of BV. However, women that have never had sexual intercourse are rarely infected with BV. Women do not get BV from toilet seats, bedding, swimming pools or from touching objects around them. SYMPTOMS ?? Ramirez vaginal discharge. ?? A fish-like odor with discharge, especially after sexual intercourse. ?? Itching or burning of the vagina and vulva. ?? Burning or pain with urination. ?? Some women have no signs or symptoms at all. DIAGNOSIS Your caregiver must examine the vagina for signs of BV. Your caregiver will perform lab tests and look at the sample of vaginal fluid through a microscope. They will look for bacteria and abnormal cells (clue cells), a pH test higher than 4.5, and a positive amine test all associated with BV. RISKS AND COMPLICATIONS ?? Pelvic inflammatory disease (PID). ?? Infections following gynecology surgery. ?? Developing HIV. ?? Developing herpes virus. TREATMENT Sometimes BV will clear up without treatment. However, all women with symptoms of BV should be treated to avoid complications, especially if gynecology surgery is planned. Male partners generally do not need to be treated. However, BV may spread between female sex partners so treatment is helpful in preventing a recurrence of BV. ?? BV may be treated with antibiotics. The antibiotics come in either pill or vaginal cream forms. Either can be used with non or women, but the recommended dosages differ. These antibiotics are not harmful to the baby. ?? BV can recur after treatment. If this happens, a second round of antibiotics will often be prescribed. ?? Treatment is important for women. If not treated, BV can cause a premature delivery, especially for a woman who had a premature in the past. All women who have symptoms of BV should be checked and treated. ?? For chronic reoccurrence of BV, treatment with a type of prescribed gel vaginally twice a week is helpful. HOME CARE INSTRUCTIONS ?? Finish all medication as directed by your caregiver. ?? Do not have sex until treatment is completed. ?? Tell your sexual partner that you have a vaginal infection. They should see their caregiver and be treated if they have problems, such as a mild rash or itching. ?? Practice safe sex. Use condoms. Only have 1 sex partner. PREVENTION Basic prevention steps can help reduce the risk of upsetting the natural balance of bacteria in thevagina and developing BV: ?? Do not have sexual intercourse (be abstinent). ?? Do not douche. ?? Use all of the medicine prescribed for treatment of BV, even if the signs and symptoms go away. ?? Tell your sex partner if you have BV. That way, they can be treated, if needed, to prevent reoccurrence. SEEK MEDICAL CARE IF: ?? Your symptoms are not improving after 3 days of treatment. ?? You have increased discharge, pain, or fever. MAKE SURE YOU: ?? Understand these instructions. ?? Will watch your condition. ?? Will get help right away if you are not doing well or get worse. FOR MORE INFORMATION Division of STD Prevention (DSTDP), Centers for Disease Control and Prevention: www.cdc.gov/std [employer] ([employer]): www.ashastd.org Document Released: 09/06/2006 Document Revised: 11/28/2012 Document Reviewed: 02/27/2010 ExitCare?? Patient Information ??2013 [employer]. ERLESS GRINDER SET UP OPERATOR * Discharge Instructions* Document, Scanned - 07/31/2013 7:41 PM CENTERLESS GRINDER SET UP OPERATOR ERLESS GRINDER SET UP OPERATOR documented in this encounter Medications at Time of Discharge Medication Sig Dispensed Refills Start Date End Date metroNIDAZOLE (FLAGYL) 500 MG tablet Take 1 Tab by mouth 2 times daily for 7 days. 14 Tab 0 07/29/2013 08/05/2013 documented as of this encounter Procedure Notes * Document, Scanned - 08/03/2013 3:05 AM CSTAssociated Order(s): LAB RESULTS ORDER ERLESS GRINDER SET UP OPERATOR documented in this encounter ED Notes * Georgina Bonilla RN - 08/01/2013 1:55 PM CST Culture report reviewed with MARGIE Betts. No new orders received. Pt is aware and also aware of the need to follow up. ERLESS GRINDER SET UP OPERATOR * Milla Monique PA-C - 07/29/2013 12:45 PM CST Provider contact with the patient: 07/29/2013 12:45 Marnie Jones [id number] [facility] History Chief Complaint Patient presents with ??? Vaginal Bleeding Pt c/o pelvic cramping 07/22-. States she has had vaginal spotting since yesterday. Pt also reportsvaginal discharge. States she thinks she has a yeast infection. HPI Comments: CC: 17yo female presents with slight cramping last week and some light spotting sinceyesterday. She reports she normally has some significant cramping when she starts her period but this is much independent consultant. Denies hx of similar symptoms. Reports regular sexual partner and denies concernfor STD. Denies fever/chills/abdominal pain, dysuria, unusual vaginal discharge, or other concerns today. Denies smoking, alcohol, or drug use. Female Genitourinary The primary symptoms include vaginal bleeding.The primary symptoms do not include pelvic pain or dysuria.The history is provided by the patient. This is a new problem. The current episode started yesterday. The problem occurs intermittent. The quality of the pain is described as cramping. The pain is mild. She is not . She has not missed her period. LMP: 07/01/13. The patient's menstrual history has been regular. : 0, Para: AB: Vaginal deliveries: sections:. The vaginal discharge was scant. Patient has not been passing clots. The vaginal bleeding is spotting. Patient has not been passing tissue. Trauma history includes none. The past medical history does not include recurrent UTIs or scarring.Urine output has been normal. The last void occurred less than 6 hours ago. Pertinent negatives include no fever, no abdominal swelling, no abdominal pain, no constipation, no diarrhea, no nausea, no vomiting, no frequency, no painful intercourse, no light-headedness, no di zziness, no hematuria, no urgency or no back pain.There has been no fever. She has tried nothing for the symptoms. The sexual encounter was with a regular sexual partner. Sexual activity: sexually active. She uses nothing for contraception. Associated medical issues do not include STD. Past Medical History Diagnosis Date ??? NEGATIVE PAST MEDICAL HISTORY - SEE PROBLEM LIST Past Surgical History Procedure Date ??? Negative surgical history No family history on file. History Social History ??? Marital Status: Single Spouse Name: N/A Number of Children: N/A ??? Years of Education: N/A Occupational History ??? Not on file. Social History Main Topics ??? Smoking status: Never Smoker ??? Smokeless tobacco: Not on file ??? Alcohol Use: No ??? Drug Use: No ??? Sexually Active: Not on file Other Topics Concern ??? Not on file Social History Narrative ??? No narrative on file Review of Systems Review of Systems Constitutional: Negative for fever, chills and malaise/fatigue. HENT: Negative. Eyes: Negative. Respiratory: Negative for cough, shortness of breath and wheezing. Cardiovascular: Negative for chest pain and palpitations. Gastrointestinal: Negative for nausea, vomiting, abdominal pain, diarrhea and constipation. Genitourinary: Positive for vaginal bleeding. Negative for dysuria, urgency, frequency, hematuria and pelvic pain. Skin: Negative. Neurological: Negative for dizziness and light-headedness. Endo/Heme/Allergies: Does not bruise/bleed easily. All other systems reviewed and are negative. Physical Exam BP 137/84 Pulse 94 Temp 97.9 ??F Resp 16 Ht 1.549 m (5' 1 ) Wt 49.896 kg (110 lb) BMI 20.78 kg/m2 SpO2 100% Physical Exam Nursing note and vitals reviewed. Constitutional: She is oriented to person, place, and time and well-developed, well-nourished, and in no distress. No distress. HENT: Head: Normocephalic and atraumatic. Eyes: EOM are normal. Cardiovascular: Normal rate, regular rhythm, normal heart sounds and intact distal pulses. Pulmonary/Chest: Effort normal and breath sounds normal. She has no wheezes. Abdominal: Soft. Bowel sounds are normal. She exhibits no distension and no mass. There is tenderness (mild suprapubic). There is no rebound and no guarding. Genitourinary: Uterus normal, cervix normal, right adnexa normal, left adnexa normal and vulva normal. Cervix exhibits no motion tenderness. Vagina exhibits normal mucosa. Thick, musty, brown and vaginal discharge found. Musculoskeletal: Normal range of motion. She exhibits no edema. Neurological: She is alert and oriented to person, place, and time. Skin: Skin is warm and dry. She is not diaphoretic. No erythema. Medications Current Outpatient Prescriptions Medication Status Sig Dispense Refill ??? metroNIDAZOLE (FLAGYL) 500 MG tablet Active Take 1 Tab by mouth 2 times daily for 7 days. 14 Tab 0 Procedures Procedures EKG Interpretation Lab/SPO2 Interpretation Results for orders placed during the hospital encounter of 07/29/13 HCG URINE QUALITATIVE - POINT OF CARE (IP) Component Value Range HCG Qual Urine Negative Negative QC Verified yes Yes URINALYSIS ROUTINE W/REFLEX TO CULTURE Component Value Range Color UA Yellow Straw, Yellow, Dark Yellow Clarity UA Clear Specific [place] UA 1.008 1.005-1.030 pH UA 7.0 5.0-8.0 pH Protein UA Negative Negative Blood UA Negative Negative Leukocyte UA Negative Negative Nitrite UA Negative Negative Glucose UA Negative Negative Ketone UA Negative Negative Bili UA Negative Negative Urobilinogen UA 1.0 0.1-1.0 EU/dL WBC UA Auto 0-2 0-2, 2-5 #/hpf RBC UA Auto 0-2 0-2, 2-5 #/hpf Epithelial Cell UA Auto 0-2 0-2, 2-5 #/hpf Bacteria UA Auto None seen None seen Hyaline Casts UA Auto 0-2 0-2 #/lpf Reflex Status Culture not indicated TRICHOMONAS RAPID TEST Component Value Range Trichomonas Rapid Test Negative Negative HCG BETA BLOOD QUANTITATIVE Component Value Range HCG Quant Serum <1 Progress Notes ED Course Will treat for BV and cover for gonorrhea and chlamydia as she has not been using condoms. I advised her to start using condoms, avoid intercourse until better and if she doesn't start her menses repeat a test in about a week (negative serum today). Cramping resolved, light spotting likely premenstrual. I discussed common SE's of flagyl with her. Will call if gonorrhea or chlamydia test +. She agrees to return to ER if worsening or new symptoms develop. Medical Decision Making I have reviewed the: Nursing Notes and Vitals. I have interpreted the following results: Labs. Orders Placed This Encounter ??? TRICHOMONAS RAPID TEST ??? CHLAMYDIA + GC AMPLIFIED PROBE ??? URINALYSIS ROUTINE W/REFLEX TO CULTURE ??? HCG BETA BLOOD QUANTITATIVE ??? HCG URINE QUALITATIVE - POINT OF CARE (IP) ??? cefTRIAXone (ROCEPHIN) injection 250 mg ??? azithromycin (ZITHROMAX) tablet 1,000 mg ??? metroNIDAZOLE (FLAGYL) 500 MG tablet Clinical Impression Final diagnoses: Bacterial vaginosis (Primary) ERLESS GRINDER SET UP OPERATOR documented in this encounter Miscellaneous Notes * Miscellaneous Scans - Document, Scanned - 07/31/2013 7:41 PM CST ERLESS GRINDER SET UP OPERATOR documented in this encounter Plan of Treatment Upcoming Encounters Date Type Department Care Team (Late st Contact Info) Description 09/19/2024 8:15 AM CENTERLESS GRINDER SET UP OPERATOR Hospital Encounter [facility] Maternal & Care [address] [place] [id number] documented as of this encounter Procedures Procedure Name Priority Date/Time Associated Diagnosis Comments LAB RESULTS ORDER 08/03/2013 3:0 5 AM CENTERLESS GRINDER SET UP OPERATOR URINALYSIS REFLEX MICROSCOPIC REFLEX CULTURE STAT 07/29/2013 1:46 PM CENTERLESS GRINDER SET UP OPERATOR HCG BETA BLOOD QUANTITATIVE STAT 07/29/2013 1:45 PM CENTERLESS GRINDER SET UP OPERATOR TRICHOMONAS RAPID TEST STAT 07/29/2013 1:34 PM CENTERLESS GRINDER SET UP OPERATOR CHLAMYDIA + GC AMPLIFIED PROBE STAT 07/29/2013 1:34 PM CENTERLESS GRINDER SET UP OPERATOR HCG URINE QUALITATIVE - POINT OF CARE STAT 07/29/2013 12:49 PM CENTERLESS GRINDER SET UP OPERATOR documented in this encounter Results * LAB RESULTS ORDER (08/03/2013 3:05 AM CENTERLESS GRINDER SET UP OPERATOR) Narrative 08/03/2013 3:05 AM CENTERLESS GRINDER SET UP OPERATOR Ordered by an unspecified provider. Transcriptions Document, Scanned - 08/03/2013 3:05 AM CST Scanned Document LAB - THERAPEUTIC DR CARTAGENA MONITORING ORDERABLES * URINALYSIS ROUTINE W/REFLEX TO CULTURE (07/29/2013 1:46 PM CENTERLESS GRINDER SET UP OPERATOR) Color UA Yellow Straw, Yellow, Dark Yellow 07/29/2013 1:59 PM CENTERLESS GRINDER SET UP OPERATOR [facility] Clarity UA Clear 07/29/2013 1:59 PM CENTERLESS GRINDER SET UP OPERATOR [facility] Specific [place] UA 1.008 1.005 - 1.030 07/29/2013 1:59 PM CENTERLESS GRINDER SET UP OPERATOR [facility] pH UA 7.0 5.0 - 8.0 pH 07/29/2013 1:59 PM CENTERLESS GRINDER SET UP OPERATOR [facility] Protein UA Negative Negative 07/29/2013 1:59 PM CENTERLESS GRINDER SET UP OPERATOR [facility] Blood UA Negative Negative 07/29/2013 1:59 PM CENTERLESS GRINDER SET UP OPERATOR [facility] Leukocyte UA Negative Negative 07/29/2013 1:59 PM CENTERLESS GRINDER SET UP OPERATOR [facility] Nitrite UA Negative Negative 07/29/2013 1:59 PM CENTERLESS GRINDER SET UP OPERATOR [facility] Glucose UA Negative Negative 07/29/2013 1:59 PM CENTERLESS GRINDER SET UP OPERATOR [facility] Ketone UA Negative Negative 07/29/2013 1:59 PM CENTERLESS GRINDER SET UP OPERATOR [facility] Bilirubin UA Negative Negative 07/29/2013 1:59 PM CENTERLESS GRINDER SET UP OPERATOR [facility] Urobilinogen UA 1.0 0.1 - 1.0 EU/dL 07/29/2013 1:59 PM CENTERLESS GRINDER SET UP OPERATOR [facility] WBC UA Auto 0-2 0-2, 2-5 #/hpf 07/29/2013 1:59 PM CENTERLESS GRINDER SET UP OPERATOR [facility] RBC UA Auto 0-2 0-2, 2-5 #/hpf 07/29/2013 1:59 PM CENTERLESS GRINDER SET UP OPERATOR [facility] Epithelial Cell UA Auto 0-2 0-2, 2-5 #/hpf 07/29/2013 1:59 PM CENTERLESS GRINDER SET UP OPERATOR [facility] Bacteria UA Auto None seen None seen 07/29/2013 1:59 PM CENTERLESS GRINDER SET UP OPERATOR [facility] Hyaline Casts UA Auto 0-2 0 - 2 #/lpf 07/29/2013 1:59 PM CENTERLESS GRINDER SET UP OPERATOR [facility] Reflex Status Culture not indicated 07/29/2013 1:59 PM CENTERLESS GRINDER SET UP OPERATOR [facility] Urine URINE SPECIMEN OBTAINED BY CLEAN CATCH PROCEDURE / Unknown 07/29/2013 1:46 PM CENTERLESS GRINDER SET UP OPERATOR 07/29/2013 1:50 PM CENTERLESS GRINDER SET UP OPERATOR Milla Monique PA-C LAB - URINALYSIS ORDERABLES [facility] [address] [place] [id number] * HCG BETA BLOOD QUANTITATIVE (07/29/2013 1:45 PM CENTERLESS GRINDER SET UP OPERATOR) hCG Quantitative <1 mIU/mL 07/29/20 13 2:11 PM CENTERLESS GRINDER SET UP OPERATOR [facility] Blood BLOOD SPECIMEN / Unknown 07/29/2013 1:45 PM CENTERLESS GRINDER SET UP OPERATOR 07/29/2013 1:50 PM CENTERLESS GRINDER SET UP OPERATOR Narrative [facility] - 07/29/2013 2:11 PM CENTERLESS GRINDER SET UP OPERATOR ?? Reference Range, mIU/ml: ? Males ? 2.0 ? Non Females ? 0-6.0 ? Perimenopausal Females ages 41-55* ?0-7.7 ? Postmenopausal Females age >55* ? 0-14 ? Females, Weeks after LMP ?0.2-1 week ? 5-50 ?1 - 2 weeks ?50-500 ?2 - 3 weeks ?100-5000 ?3 - 4 weeks ?500-10,000 ?4 - 5 weeks ?1000-50,000 ?5 - 6 weeks ?10,000-100,000 ?6 - 8 weeks ?15,000-200,000 ?2 - 3 months ? 10,000-100,000 ?Trophoblastic Disease ? >100,000 ? *In higher than expected HCG in females > age 40, a serum FSH >20 IU/L makes unlikely. Milla Monique PA-C LAB - CHEMISTRY O RDERABLES [facility] [address] [place] [address] * (ABNORMAL) CHLAMYDIA + GC AMPLIFIED PROBE (07/29/2013 1:34 PM CENTERLESS GRINDER SET UP OPERATOR) Chlamydia Amplified Probe Positive(A) Negative 07/31/2013 12:28 PM CENTERLESS GRINDER SET UP OPERATOR [facility] GC Amplified Probe Negative Negative 07/31/2013 12:28 PM CENTERLESS GRINDER SET UP OPERATOR [facility] Microbiology ENTIRE VAGINA / Unknown 07/29/2013 1:34 PM CENTERLESS GRINDER SET UP OPERATOR 07/29/2013 1:39 PM CENTERLESS GRINDER SET UP OPERATOR Narrative [facility] - 07/31/2013 12:28 PM CENTERLESS GRINDER SET UP OPERATOR Results based on detection/no detection of ribosomal RNA by amplified method. Milla Monique PA-C LAB - MICROBIOLOG Y ORDERABLES Performing Organization Address City/[facility]/ZIP Co de Phone Number [facility] [address] [place] [address], [facility] * TRICHOMONAS RAPID TEST (07/29/2013 1:34 PM CENTERLESS GRINDER SET UP OPERATOR) Trichomonas Rapid Test Negative Negative 07/29/2013 1:58 PM CENTERLESS GRINDER SET UP OPERATOR [facility] Microbiology ENTIRE VAGINA / Unknown 07/29/2013 1:34 PM CENTERLESS GRINDER SET UP OPERATOR 07/29/2013 1:39 PM CENTERLESS GRINDER SET UP OPERATOR Milla CARLOSC LAB - MICROBIOLOG Y ORDERABLES Performing Organization Address [facility] de Phone Number [facility] [address] [place] [address] * HCG URINE QUALITATIVE - POINT OF CARE (IP) (07/29/2013 12:49 PM CENTERLESS GRINDER SET UP OPERATOR) HCG Qual Urine Negative Negative [facility] POCT TESTING QC Verified yes Yes [facility] POC T TESTING Urine specimen (specimen) URINE / Unknown 07/29/2013 12:49 PM CENTERLESS GRINDER SET UP OPERATOR Milla CARLOSC LAB - POINT OF CA RE ORDERABLES Performing Organization Address [facility] de Phone Number [facility] [address] [place] [address] documented in this encounter Visit Diagnoses Diagnosis Bacterial vaginosis- Primary Vaginitis and vulvovaginitis, unspecified Encounter for maternal care for suspected poor growth in roman in third trimester (HCC)- Primary Aversion to food: limiting protein intake Feeding difficulties and mismanagement Abnormal ultrasound: dopplers elevated S/d ratio Abnormal findings on screening High-risk in third trimester (HCC) Previous baby with growth restriction Encounter for screening ([facility]) documented in this encounter Administered Medications Inactive Administered Medications - up to 3 most recent administrations Medication Order MAR Action Action Date Dose Rate Site azithromycin (ZITHROMAX) tablet 1,000 mg 1,000 mg (20 mg/kg), Oral, ONCE, 1 dose, On 07/29/13 at 1445 $ Given 07/29/2013 2:25 PM CENTERLESS GRINDER SET UP OPERATOR 1,000 mg cefTRIAXone (ROCEPHIN) injection 250 mg 250 mg (5.01 mg/kg), Intramuscular, ONCE, 1 dose, On 07/29/13 at 1445 $ Given 07/29/2013 2:25 PM CENTERLESS GRINDER SET UP OPERATOR 250 mg Buttock documented in this encounter Active and Recently Administered Medications Times are shown in CENTERLESS GRINDER SET UP OPERATOR. Scheduled Medication Order 07/27/2013 07/28/2013 07/29/2013 azithromycin (ZITHROMAX) tablet 1,000 mg (COMPLETED) 1,000 mg (20 mg/kg), Oral, ONCE, 1 dose, On 07/29/13 at 1445 1425 ($ Given - Prov ider: Cruzito Higgins RN) cefTRIAXone (ROCEPHIN) injection 250 mg (COMPLETED) 250 mg (5.01 mg/kg), Intramuscular, ONCE, 1 dose, On 07/29/13 at 1445 1425 ($ Given - Prov ider: Cruzito Higgins, CL) documented in this encounter Care Teams Car Seat Coverer Relationship Specialty Start Date End Date None, Pcp [place] [address] PCP - General Nurse Practitioner 12/04/12 documented as of this encounter
--- OUTSIDE RECORDS SUMMARY | 2024-09-18 05:31 | XMS_ITS | Encounter Summary ---
Author Organization [facility] Address [address] [place] [address] Care Team Providers Care Clay Structure Builder And Servicer Name Role Phone Unavailable Primary Care Provider Unavailabl e Reason for Visit * Reason Comments Breathing Problem Pain Pelvic Discharge Vaginal Encounter Details Date Type Department Care Team (Latest Contact Info) Description 01/26/2017 3:25 PM CDT - 01/26/2017 6:35 PM CDT Hospital Encounter [facility] [address] [place] [address] Ann Piña MD [address] [place] [address] [address] [place] [address] Discharge Disposition: Home or Self Care Social [...] Sign Reading Time Taken Comments Blood Pressure 121/56 01/26/2017 6:17 PM CDT Pulse - - Temperature 36.9 ??C (98.4 ??F) 01/26/2017 3:36 PM CD T Respiratory Rate 20 01/26/2017 3:36 PM CDT Oxygen Saturation 100% 01/26/2017 6:17 PM CDT Inhaled Oxygen Concentration - - Weight 64.9 kg (143 lb) 01/26/2017 3:25 PM CDT Height 154.9 cm (5' 1 ) 01/26/2017 3:25 PM CDT Body Mass Index 27.02 01/26/2017 3:25 PM CDT documented in this encounter Discharge Instructions * Discharge Instructions* Erica Rehman RN - 01/26/2017 6:26 PM CDT UNDELIVERED PATIENT DISCHARGE INSTRUCTIONS CALL YOUR DOCTOR (SEE NUMBER BELOW) ?? If you are less than 37 weeks and have move than 5 contractions an hour. ?? Blurring ofvision or spots before your eyes. ?? Ruptured membranes or leakage of vaginal fluid. ?? May be a steady trickle or large gush ?? May be clear, yellow, pink or green ?? Decreased movement--if your baby has stopped movingor is moving less than it normally does. Do Kick Counts as instructed. ?? Vaginal bleeding--bright red bleeding and/or clots needs medical care immediately. ?? Any temperature above 100 degrees. ?? Headache ?? Any burning or painful urination. ?? Increased swelling in your face, hands, or feet. ?? Stomach pains, cramps, nausea,or diarrhea. Important Telephone Number: [facility] [place]: [phone] documented in this encounter Medications at Time of Discharge Medication Sig Dispensed Refills Start Date End Date docusate sodium (COLACE) 100 MG capsule Take 1 Cap by mouth once daily 30 Cap 1 12/23/2016 02/10/2017 famotidine (PEPCID) 20 MG tablet Take 1 Tab by mouth once daily as needed for Heartburn (Indigestion) 30 Tab 2 11/25/2016 11/28/2018 metroNIDAZOLE (FLAGYL) 500 MG tabletIndications:Brandy terial Vaginosis Take 1 Tab by mouth 2 times daily for 7 days Reasons: Vaginosis caused by Bacteria 14 Tab 01/25/2017 02/01/2017 ondansetron (ZOFRAN) 4 MG tablet Take 1 Tab by mouth every 6 hours as needed for Nausea/Vomiting 30 Tab 10/06/2016 02/10/2017 polyethylene glycol 3350 (MIRALAX) powder Take 17 g by mouth once daily as needed for Constipation 1 Bottle 12/23/2016 02/10/2017 Vit-Fe Fumarate-FA ( VITAMINS) 28-0.8 MG TABS Take 1 Tab by mouth once daily 90 Tab 3 10/06/2016 02/10/2017 documented as of this encounter Progress Notes * Ramona Benoit RN - 01/26/2017 4:22 PM CDT Pt to X-ray via stretcher accompanied by member of transport staff * Jesse Reeder MD - 01/26/2017 4:16 PM CDT In to speak with patient about radiation exposure in CXR Given patient's history, Dr Fair was interested in obtaining CXR to rule out acute pulmonary process. Discussed small amount of radiation exposure to baby, below the threshold that has been studied as teratogenic in . Patient voiced understanding, agreeable to procedure Jesse Reeder MD 01/26/2017 4:19 PM * Ramona Benoit RN - 01/26/2017 3:35 PM CDT Lulú from Cardiology at to do EKG documented in this encounter H&P Notes * Jesse Reeder MD - 01/26/2017 4:28 PM CDT R1 Obstetric H&P Note 01/26/2017, 4:28 PM CC: SOB HPI: 21 y.o. at 30w4d gestation Dating: LMP c/w 10 week ultrasound Estimated Date of Delivery: 04/02/17 care: is with Cent[facility] Patient's is complicated by: Patient Active Problem List Diagnosis Date Noted ??? Decreased movement Priority: Not Prioritized ??? Encounter for supervision of normal first [...] Pepcid Rx Patient presents with complaints of SOB for 2 weeks. Notes worsening today at work and subsequent anxiety as she noticed her symptoms. Denies CP, N/V, diarrhea, fevers. History of childhood asthma, has not required inhalers since age of 6, history of GERD as well Notes constant pelvic pressure that has been constant as well as baseline discharge which she was diagnosed with BV on last clinic visit and rxed flagyl negative Ctx. negative LOF. negative VB. positive [...] Anes PTL Lv 1 Current Gynecologic History: History of abnormal pap smear: no History of procedure on cervix: no STI History: remote hx CT, Denies gonorrhea, trichomonas, herpes, HIV, syphilis Medical History: Past Medical History: Diagnosis Date ??? Chlamydia contact, treated 07/29/2013 reports repeat infection 2014 ??? History of asthma as a child ??? History of sexually transmitted disease She denies history of hypertension, diabetes, asthma or bleeding disorders. Psych History: Depression: yes Anxiety: yes Bipolar disorder: No Schizophrenia: No Surgeries: Past Surgical History: Procedure Laterality Date ??? NEGATIVE SURGICAL HISTORY Current Medications: Prior to Admission medications Medication Sig Start Date End Date Taking? Authorizing Provider famotidine (PEPCID) 20 MG tablet Take 1 Tab by mouth once daily as needed for Heartburn (Indigestion) 11/25/16 Yes Chelsea White APRN-CNM ondansetron (ZOFRAN) 4 MG tablet Take 1 Tab by mouth every 6 hours as needed for Nausea/Vomiting 10/06/16 Yes Allie Martinez MD Vit-Fe Fumarate-FA ( VITAMINS) 28-0.8 MG TABS Take 1 Tab by mouth once daily 10/06/16 Yes Allie Martinez MD metroNIDAZOLE (FLAGYL) 500 MG tablet Take 1 Tab by mouth 2 times daily for 7 days Reasons: Vaginosis caused by Bacteria 01/25/17 02/01/17 Dorothy Enrique APRN-CNP docusate sodium (COLACE) 100 MG capsule Take 1 Cap by mouth once daily Patient not taking: Reported on 01/25/2017 12/23/16 Shelley Calloway APRN-CNM polyethylene glycol 3350 (MIRALAX) powder Take 17 g by mouth once daily as needed for Constipation Patient not taking: Reported on 01/25/2017 12/23/16 Shelley Calloway APRN-CNM Allergies: No Known Allergies Social History: [...] of breast, ovarian, or uterine cancer Objective: Patient Vitals for the past 24 hrs: Temp Resp BP 01/26/17 1536 98.4 ??F 20 120/66 Assessment/ Non-Stress Test Baseline: 145 beats/minute moderate variability Reactive Contractions: none Decelerations: none Physical Exam General: no acute distress, alert and oriented x3 HEENT: extra-occular movements intact, moist mucous membranes Heart: regular rate and rhythm Lungs: CTAB, no wheezes or crackles Abdomen: soft, non-tender, non-distended, no appreciable masses or organomegaly Extremities: reports diffuse tenderness to palpation over all areas of leg bilaterally, trace edemabilaterally and symmetrically Neuro: cranial nerves grossly intact, strength and sensation intact and symmetric bilaterally Psych: nervous in appearance Current Lab Review: Hospital Encounter on 01/26/17 URINALYSIS ROUTINE W/REFLEX TO CULTURE Result Value Ref Range Color UA Yellow Straw, Yellow, Dark Yellow Clarity UA Cloudy Specific [place] UA 1.024 1.005 - 1.030 pH UA 6.5 5.0 - 8.0 pH Protein UA Trace (Abnormal) Negative Blood UA Negative Negative Leukocyte UA 2+ (Abnormal) Negative Nitrite UA Negative Negative Glucose UA Negative Negative Ketone UA Negative Negative Bili UA Negative Negative Urobilinogen UA 1.0 0.1 - 1.0 EU/dL WBC UA Auto 10-20 (Abnormal) 0-2, 2-5 # /hpf RBC UA Auto 0-2 0-2, 2-5 # /hpf Epithelial Cell UA Auto 5-10 (Abnormal) 0-2, 2-5 # /hpf Bacteria UA Auto 4+ (Abnormal) None seen Reflex Status Culture to follow Imaging Exam: PA and lateral views of the chest. Findings/Impression: No prior exam is available for comparison. No focal consolidation, pleural effusion, or pneumothorax is identified. The cardiac silhouette and mediastinal contours are normal. labs will request if admit Blood type: A+ Rubella: immune Hep B surface antigen:non-reactive RPR: non-reactive HIV:Negative GCT: 110 Assessment/Plan: 21 y.o. @ 30w4d 1. Shortness of breath 1. AFVSS, O2 sat 100% on room air, RR 20 2. Physical exam: lungs CTAB without wheezes or crackles 3. CXR normal heart and lungs 4. EKG sinus tachycardia 5. Patient reports tenderness to palpation of all aspects of both legs, suspect musculoskeletal pain based on history of walking around all day 1. Bilateral LE dopplers negative per tech 6. Patient reports improvement in symptoms after her workup, states she is relieved everything is okay 1. Suspect combination of anxiety with physiological SOB of as well as exertion from work 2. SGA growth 1. EFW 1320 gm (7%) on 01/25 with normal BPP and dopplers 3. Patient without signs/symptoms of labor 1. Long standing baseline pelvic pressure, without contractions, currently on treatment for BV 4. FWB reassuring 5. Dispo: home Patient seen and discussed with Dr Fair, discussed patient with Dr Adhikari and Dr Krish Reeder MD 01/26/2017 4:28 PM Associated attestation - Andres Rutherford MD - 01/29/2017 12:38 PM CDT OBGYN ATTESTATION Discussed case with Dr Reeder at time of evaluation. at 30w4d. CXR wnl BLE venous Doppler studies wnl. Plan: Agree with assessment and plan. D/C home with respiratory and VTE precautions. Follow up: As scheduled with primary OB provider. I agree with resident documentation. Andres Rutherford MD documented in this encounter Plan of Treatment Upcoming Encounters Date Type Department Care Team (Late st Contact Info) Description 09/19/2024 8:15 AM [employer] Hospital Encounter [facility] [address] [place], [place] [id number] documented as of this encounter Procedures Procedure Name Priority Date/Time Associated Diagnosis Comments VAS BILATERAL VENOUS DUPLEX LE STAT 01/26/2017 6:19 PM CDT SOB (shortness of breath) XR CHEST 2VW STAT 01/26/2017 4:44 PM CDT SOB (shortness of breath) URINALYSIS REFLEX MICROSCOPIC REFLEX CULTURE STAT 01/26/2017 3:42 PM CDT Encounter for supervision of normal first in first trimester (HCC) CULTURE URINE Routine 01/26/2017 3:42 PM CDT Encounter for supervision of normal first in first trimester (HCC) EKG 12-LEAD STAT 01/26/2017 3:37 PM CDT SOB (shortness of breath) documented in this encounter Results * VAS VENOUS DUPLEX LE BILATERAL (01/26/2017 6:19 PM CDT) Anatomical Region Laterality Modality Ultrasound 01/26/2017 5:34 PM CDT Narrative Procedure Note Chung Barrios MD - 01/27/2017 [facility] [address] [place] [address] Lower Extremity Venous Ultrasound Report Pat.Name: MARNIE MURPHY Pat.ID: [id number] .Date: 01/26/2017 Exam Time: 5:34:00 PM Study Type:LE Venous Age: 4 1995,21Y Sex: FEMALE Sonogrphr: [address] St RVT Pat. Stat.:Inpatient ICD - 9: R06.02 CPT - 4: 76742 Reason for Study:Shortness of breath History / Clinical:Smoking - quit <6mo. Procedures:Lower Extremity Venous - Bilateral Visit ID: [id number] SUMMARY: No evidence of deep or superficial [...] Neal DO VASCULAR LAB ORDERAB LES * XR CHEST PA AND LATERAL (01/26/2017 4:44 PM CDT) Anatomical Region Laterality Modality Chest Radiographic Karen ging 01/26/2017 4:48 PM CDT Narrative 01/26/2017 4:48 PM CDT Exam: PA and lateral views of the chest. History: Shortness of breath Findings/Impression: No prior exam is available for comparison. No focal consolidation, pleural effusion, or pneumothorax is identified. The cardiac silhouette and mediastinal contours are normal. Procedure Note Mohamud Luciano MD - 01/26/2017 Exam: PA and lateral views of the chest. History: Shortness of breath Findings/Impression: No prior exam is available for comparison. No focal consolidation, pleural effusion, or pneumothorax is identified. The cardiac silhouette and mediastinal contours are normal. Genevieve Neal DO DIAGNOSTIC IMAGING O RDERABLES * CULTURE URINE (01/26/2017 3:42 PM CDT) Pathologist [facility] [place] Culture >100,000 CFU/mL urogenital anjelica 01/27/2017 2:21 PM CDT [facility] MICROBIOLOGY Urine URINE SPECIMEN OBTAINED BY CLEAN CATCH PROCEDURE / Unknown Collection / Unknown 01/26/2017 3:42 PM CDT 01/26/2017 3:48 PM CDT Genevieve Neal DO LAB - MICROBIOLOGY O RDERABLES [facility] MICROBIOLOGY [address] [place], [place] [address], [facility] [phone] * (ABNORMAL) URINALYSIS ROUTINE W/REFLEX TO CULTURE (01/26/2017 3:42 PM CDT) Color UA Yellow Straw, Yellow, Dark Yellow 01/26/2017 4:02 PM CDT [facility] Clarity UA Cloudy 01/26/2017 4:02 PM CDT [facility] Specific [place] UA 1.024 1.005 - 1.030 01/26/2017 4:02 PM CDT [facility] pH UA 6.5 5.0 - 8.0 pH 01/26/2017 4:02 PM CDT [facility] Protein UA Trace(A) Negative 01/26/2017 4:02 PM CDT [facility] Blood UA Negative Negative 01/26/2017 4:02 PM CDT [facility] Leukocyte UA 2+(A) Negative 01/26/2017 4:02 PM CDT [facility] Nitrite UA Negative Negative 01/26/2017 4:02 PM CDT [facility] Glucose UA Negative Negative 01/26/2017 4:02 PM CDT [facility] Ketone UA Negative Negative 01/26/2017 4:02 PM CDT [facility] Bilirubin UA Negative Negative 01/26/2017 4:02 PM CDT [facility] Urobilinogen UA 1.0 0.1 - 1.0 EU/dL 01/26/2017 4:02 PM CDT [facility] WBC UA Auto 10-20(A) 0-2, 2-5 # /hpf 01/26/2017 4:02 PM CDT [facility] RBC UA Auto 0-2 0-2, 2-5 # /hpf 01/26/2017 4:02 PM CDT [facility] Epithelial Cell UA Auto 5-10(A) 0-2, 2-5 # /hpf 01/26/2017 4:02 PM CDT [facility] Bacteria UA Auto 4+(A) None seen 01/27/20 17 4:02 PM CDT [facility] Reflex Status Culture to follow 01/26/2017 4:02 PM T [facility] Urine URINE SPECIMEN OBTAINED BY CLEAN CATCH PROCEDURE / Unknown Collection / Unknown 01/26/2017 3:42 PM CDT 01/26/2017 3:48 PM CDT Genevieve Neal DO LAB - URINALYSIS ORD ERABLES [facility] [address] [place] [address] * EKG 12-LEAD (01/26/2017 3:37 PM CDT) Ventricular Rate 103 BPM [facility] Atrial Rate 103 BPM [facility] P-R Interval 130 ms [facility] QRS Duration ms 72 ms [facility] Q-T Interval ms 326 ms [facility] QTC Calculation (Bezet) 427 ms [facility] Calculated P [place] 52 degrees [facility] Calculated R [place] 38 degrees [facility] Calculated T [place] 18 degrees [facility] Interpretation EKG SINUS TACHYCARDIA OTHERWISE NORMAL ECG NO PREVIOUS ECGS AVAILABLE Confirmed by MD Sveta, Yeyo ([id number]) on 01/27/2017 8:40:39 AM [facility] 01/26/2017 3:37 PM CDT 01/27/2017 8:40 AM CDT Genevieve Neal ECG ORDERABLES [facility] documented in this encounter Visit Diagnoses Diagnosis SOB (shortness of breath)- Primary Shortness of breath Encounter for supervision of normal first in first trimester ([facility]) Supervision of normal first Encounter for maternal care for suspected poor growth in roman in third trimester ([facility])- Primary Aversion to food: limiting protein intake Feeding difficulties and mismanagement Abnormal ultrasound: dopplers elevated S/d ratio Abnormal findings on screening High-risk in third trimester ([facility]) Previous baby with growth restriction Encounter for screening ([facility]) documented in this encounter Administered Medications Inactive Administered Medications - up to 3 most recent administrations Medication Order MAR Action Action Date Dose Rate Site hydrOXYzine hcl (ATARAX) tablet 50 mg 50 mg, Oral, ONCE, 1 dose, On Wed01/26/17 at 1630 $ Given 01/26/2017 4:52 PM CDT 50 mg documented in this encounter Active and Recently Administered Medications Times are shown in CDT. Scheduled Medication Order 01/24/2017 01/25/2017 01/26/2017 hydrOXYzine hcl (ATARAX) tablet 50 mg (COMPLETED) 50 mg, Oral, ONCE, 1 dose, On Wed01/26/17 at 1630 1652 ($ Given - Prov ider: Erica Rehman RN) documented in this encounter
--- OUTSIDE RECORDS SUMMARY | 2024-09-18 05:31 | XMS_ITS | Encounter Summary ---
Author Organization [facility] Address [facility] [place] [address] Care Team Providers Care System Support Analyst Name Role Phone Unavailable Primary Care Provider Unavailabl e Reason for Visit * Reason Comments Initial Visit Encounter Details Date Type Department Care Team (Late st Contact Info) Description 09/04/2016 9:17 AM FRANCHISE SALES DIRECTOR - 09/04/2016 11:59 PM FRANCHISE SALES DIRECTOR Hospital Encounter [facility] MATERNAL/ EVALUATION UNIT [address] [place] [address] Ignacia Roca MD [address] [facility] [address] [place] [address] Discharge Disposition: Home or Self Care Social History Tobacco Use Types Packs/Day Years Used Date Smoking Tobacco: Former Cigarettes Q uit: 07/24/2016 Tobacco Cessation:Counseling Given: Yes Comments:advised not to resume Alcohol Use Standard Drinks/Week Comments No 0 (1 standard drink = 0.6 oz pur e alcohol) Comments Yes Sex and Gender Information Value Date Recorded Sex Assigned at Not on file Gender Identity Not on file Sexual Orientation Not on file documented as of this encounter Last Filed Vital Signs Vital Sign Reading Time Taken Comments Blood Pressure 120/71 09/04/2016 10:15 AM FRANCHISE SALES DIRECTOR Pulse 77 09/04/2016 10:15 AM FRANCHISE SALES DIRECTOR Temperature - - Respiratory Rate 20 09/04/2016 10:15 AM FRANCHISE SALES DIRECTOR Oxygen Saturation - - Inhaled Oxygen Concentration - - Weight 65.3 kg (144 lb) 09/04/2016 10:15 AM FRANCHISE SALES DIRECTOR Height 154.9 cm (5' 1 ) 09/04/2016 10:15 AM FRANCHISE SALES DIRECTOR Body Mass Index 27.21 09/04/2016 10:15 AM FRANCHISE SALES DIRECTOR documented in this encounter Medications at Time of Discharge Medication Sig Dispensed Refills Start Date End Date famotidine (PEPCID) 20 MG tablet Take 1 Tab by mouth once daily as needed for Heartburn (Indigestion) 30 Tab 08/18/2016 11/25/2016 metoclopramide, disintegrating, (METOZOLV ODT) 5 MG tablet Take 1 Tab by mouth every 6 hours as needed for Nausea/Vomiting 20 Tab 08/18/2016 10/06/2016 Vit-Fe Fumarate-FA ( VITAMIN PO) Take 1 Tab by mouth once daily 11/25/2016 documented as of this encounter Progress Notes * Ignacia Roca MD - 09/04/2016 11:12 AM CST Obstetric History and Physical Exam Chief Complaint Patient presents with ??? Initial Visit HPI: Marnie Jones is a 20 y.o. , at 10w0d gestation by LMP consistent with U/S today. Patient's last menstrual period was 06/26/2016. Estimated Date of Delivery: 04/02/17. Presents todayto establish care. Her is complicated by: Patient Active Problem List Diagnosis Date Noted ??? Encounter for supervision of normal first in first trimester 09/04/2016 Priority: Not Prioritized First PNV 09/04/16 Interested in Centering. PNL/CHL/GC/U Cx today Pap not indicated EPDS = 5 Would like SS and CF Declines FLU Planning breast and condoms. FOB involved ??? Gastroesophageal reflux disease without esophagitis 09/04/2016 Priority: Not Prioritized Has Pepcid Rx No VB, + N/V (has Rx) Obstetrical history: OB History Para Term AB TAB SAB Ectopic Multiple Living 1 Gynelogical history: Pap not indicated Chlamydia as below Medical History: Past Medical History Diagnosis Date ??? Chlamydia contact, treated 07/29/2013 reports repeat infection 2014 ??? NEGATIVE PAST MEDICAL HISTORY - SEE PROBLEM LIST Surgeries: Past Surgical History Procedure Laterality Date ??? Negative surgical history Allergies: No Known Allergies Curent Medications: Current Outpatient Prescriptions: ??? Vit-Fe Fumarate-FA ( VITAMIN PO), Take 1 Tab by mouth once daily, Disp: , Rfl: ??? famotidine (PEPCID) 20 MG tablet, Take 1 Tab by mouth once daily as needed for Heartburn (Indigestion), Disp: 30 Tab, Rfl: 0 ??? metoclopramide, disintegrating, (METOZOLV ODT) 5 MG tablet, Take 1 Tab by mouth every 6 hours as needed for Nausea/Vomiting, Disp: 20 Tab, Rfl: 0 Family History: No family history on file. No history of infants born with defects No history of breast, ovarian, colon or endometrial cancer Social History: Social History Smoking status: Former Smoker Packs/day: 0.00 Years: 0.00 Quit date: 07/24/2016 Smokeless status: Not on file Comment: advised not to resume Alcohol use: No Drug use: No Sexual activity: Not on file Denies abuse and feels safe Psych History: No Depression/ Anxiety Physical Exam: Vitals: 09/04/16 1015 BP: 120/71 Pulse: 77 Resp: 20 Weight: 144 lb (65.3 kg) General: alert, cooperative, no distress Skin: Normal, no rash or abnormalities Thyroid: normal, no masses or nodules Breast: Normal, no masses, lesions or drainage Abdomen: S/NT/ND Extremities: normal, non-tender bilaterally. Pelvis: External Genitalia: NEFG Cervix: Long/closed Uterus: 10 week size, NT Adnexa: No masses/NT Clinical Pelvimetry: Adequate, no abnormalities Assessment/Plan: 20 y.o. @ 10w0d here to establish care 1. Routine labs, CF today 2. SS ordered 3. To follow up in [place]. Ignacia Roca MD 09/04/2016 11:12 AM CHISE SALES DIRECTOR documented in this encounter Plan of Treatment Upcoming Encounters Date Type Department Care Team (Late st Contact Info) Description 09/19/2024 8:15 AM FRANCHISE SALES DIRECTOR Hospital Encounter [facility] Women's Health Maternal & Care [address] [place] [id number] documented as of this encounter Procedures Procedure Name Priority Date/Time Associated Diagnosis Comments CBC W AUTO DIFFERENTIAL Routine 09/04/20 11:44 AM FRANCHISE SALES DIRECTOR Encounter for supervision of normal first in first trimester (HCC) OBSTETRIC PANEL (BEAKER) Routine 09/04/2016 11:20 AM FRANCHISE SALES DIRECTOR Encounter for supervision of normal first in first trimester ([facility]) HIV-1 HIV-2 ANTIBODY + HIV P24 AG PANEL Routine 09/04/2016 11:20 AM FRANCHISE SALES DIRECTOR Encounter for supervision of normal first in first trimester ([facility]) URINALYSIS REFLEX TO MICROSCOPIC NO CULTURE Routine 09/04/2016 11:20 AM FRANCHISE SALES DIRECTOR Encounter for supervision of normal first in first trimester ([facility]) RUBELLA IMMUNE STATUS Routine 09/04/2016 11:20 AM FRANCHISE SALES DIRECTOR Encounter for supervision of normal first in first trimester ([facility]) RPR Routine 09/04/2016 11:20 AM FRANCHISE SALES DIRECTOR Encounter for supervision of normal first in first trimester ([facility]) CHLAMYDIA + GC AMPLIFIED PROBE Routine 09/04/2016 11:20 AM FRANCHISE SALES DIRECTOR Encounter for supervision of normal first in first trimester ([facility]) HEMOGLOBIN ELECTROPHORESIS Routine 09/04/2016 11:20 AM FRANCHISE SALES DIRECTOR Encounter for supervision of normal first in first trimester ([facility]) CULTURE URINE Routine 09/04/2016 11:20 AM FRANCHISE SALES DIRECTOR Encounter for supervision of normal first in first trimester ([facility]) TYPE + SCREEN PANEL Routine 09/04/2016 1 1:20 AM FRANCHISE SALES DIRECTOR Encounter for supervision of normal first in first trimester ([facility]) CYSTIC FIBROSIS MUTATION PANEL Routine 09/04/2016 11:20 AM FRANCHISE SALES DIRECTOR Encounter for supervision of normal first in first trimester ([facility]) HEPATITIS B SURFACE ANTIGEN W RFLX CONFIRMATION Routine 09/04/2016 11:20 AM FRANCHISE SALES DIRECTOR Encounter for supervision of normal first in first trimester ([facility]) GLUCOSE PROTEIN KETONE URINE - POINT OF CAR Routine 09/04/2016 10:23 AM FRANCHISE SALES DIRECTOR documented in this encounter Results * (ABNORMAL) CBC W AUTO DIFFERENTIAL (09/04/2016 11:44 AM [facility]) WBC 9.1 4.4 - 10.7 x10E9/L 09/04/2016 11:49 AM [facility] WBC Corrected x10E9/L 09/04/2016 11:49 AM [facility] RBC 4.58 3.80 - 5.20 x10E12/L 09/04/2016 11:49 AM [facility] Hemoglobin 12.5 12.0 - 15.6 gm/dL 09/04/2016 11:49 AM [facility] Hematocrit 37.8 35.9 - 45.5 % 09/04/2016 11:49 AM [facility] MCV 82.5 80.7 - 98.3 fl 09/04/2016 11:49 AM [facility] MCH 27.3 26.7 - 34.0 pg 09/04/2016 11:49 AM [facility] MCHC 33.1 30.8 - 35.9 gm/dL 09/04/2016 11:49 AM [facility] Platelet Count 329 153 - 416 x10E9/L 09/04/2016 11:49 AM [facility] RDW-CV 15.2(H) 12.1 - 14.9 % 09/04/2016 11:49 AM [facility] MPV 10.7 9.4 - 12.9 fl 09/04/2016 11:49 AM [facility] Neutrophils % 69.5 44.0 - 73.0 % 09/04/2016 11:49 AM [facility] Lymphocytes % 23.2 20.0 - 43.0 % 09/04/2016 11:49 AM [facility] Monocytes % 5.4 5.0 - 13.0 % 09/04/2016 11:49 AM [facility] Eosinophils % 1.4 0.0 - 6.0 % 09/04/2016 11:49 AM [facility] Basophils % 0.2 0.0 - 2.0 % 09/04/2016 11:49 AM [facility] Immature Granulocytes 0.3 0 - 1 % 09/04/2016 11:49 AM [facility] Neutrophil Absolute 6.28 2.01 - 7.14 x10E9/L 09/04/2016 11:49 AM [facility] Lymphocytes Absolute 2.10 1.07 - 3.94 x10E9/L 09/04/2016 11:49 AM [facility] Monocytes Absolute 0.49 0.26 - 1.07 x10E9/L 09/04/2016 11:49 AM [facility] Eosinophils Absolute 0.13 0 - 0.47 x10E9/L 09/04/2016 11:49 AM [facility] Basophils Absolute 0.02 0 - 0.08 x10E9/L 09/04/2016 11:49 AM [facility] Immature Granulocytes Absolute 0.03 0.00 - 0.06 x10E9/L 09/04/2016 11:49 AM [facility] nRBC Auto 0 /100 WBC 09/04/2016 11:49 AM [facility] Blood BLOOD SPECIMEN / Unknown Venipuncture / Unknown 09/04/2016 11:44 AM FRANCHISE SALES DIRECTOR 09/04/2016 11:44 AM FRANCHISE SALES DIRECTOR Ignacia Roca MD LAB - HEMATOLOGY ORDERABLES Performing Organization Address [facility] Co de Phone Number [facility] [address] [place] [address] * TYPE + SCREEN PANEL (09/04/2016 11:20 AM FRANCHISE SALES DIRECTOR) [facility] ABO A 09/04/2016 12:26 PM [facility] Rh Type Positive 09/04/2016 12:26 PM [facility] Comment:No prev hx found Antibody Screen Negative 09/04/2016 12:26 PM [facility] Blood Bank BLOOD SPECIMEN / Unknown Venipuncture / Unknown 09/04/2016 11:20 AM FRANCHISE SALES DIRECTOR 09/04/2016 11:44 AM FRANCHISE SALES DIRECTOR Ignacia Roca MD LAB - BLOOD BANK ORDERABLES Performing Organization Address [facility] Co de Phone Number [facility] [address] * RPR (09/04/2016 11:20 AM FRANCHISE SALES DIRECTOR) [facility] RPR Non Reactive Non Reactive 09/05/2016 9:51 AM FRANCHISE SALES DIRECTOR [facility] Blood BLOOD SPECIMEN / Unknown Venipuncture / Unknown 09/04/2016 11:20 AM FRANCHISE SALES DIRECTOR 09/04/2016 11:43 AM FRANCHISE SALES DIRECTOR Ignacia Roca MD LAB - CHEMISTRY O RDERABLES Performing Organization Address [facility] Co de Phone Number [facility] [address] [place], [place] [id number] * RUBELLA IMMUNE STATUS (09/04/2016 11:20 AM FRANCHISE SALES DIRECTOR) Pathologist [facility] Rubella Antibody IgG Immune Status Positive - Immune 09/04/2016 12:39 PM FRANCHISE SALES DIRECTOR [facility] Blood BLOOD SPECIMEN / Unknown Venipuncture / Unknown 09/04/2016 11:20 AM FRANCHISE SALES DIRECTOR 09/04/2016 11:44 AM FRANCHISE SALES DIRECTOR Ignacia Roca MD LAB - CHEMISTRY O RDERABLES Performing Organization Address [facility] Co de Phone Number [facility] [address] [place] [address] * HEPATITIS B SURFACE ANTIGEN (09/04/2016 11:20 AM FRANCHISE SALES DIRECTOR) Pathologist [facility] HBsAg Non Reactive Non Reactive 09/04/2016 12:40 PM FRANCHISE SALES DIRECTOR [facility] Blood BLOOD SPECIMEN / Unknown Venipuncture / Unknown 09/04/2016 11:20 AM FRANCHISE SALES DIRECTOR 09/04/2016 11:44 AM FRANCHISE SALES DIRECTOR Ignacia Roca MD LAB - CHEMISTRY O RDERASTACIE Performing Organization Address [facility] de Phone Number [facility] [address] [place] [id number] * CYSTIC FIBROSIS MUTATION PNL (09/04/2016 11:20 AM FRANCHISE SALES DIRECTOR) [facility] Cystic Fibrosis Screen Comment: 09/15/2016 1:08 PM FRANCHISE SALES DIRECTOR [facility] ([facility]) Comment: RESULTS: Negative for 32 mutations analyzed [...] a carrier of cystic fibrosis, please contact [employer] at for a revised report. Mutation [...] ? Rate Ashkenazi ? 10/15 to ?97% Latter-Day ? 10/14 to ?90% (non-) -Zambian ? to ?69% ? to ?73% ? to ?55% This interpretation is based on the clinical and family relationship information provided and the current understanding of the molecular genetics of this condition. MUTATIONS ANALYZED: G85E ?V520F ?I2684F ? 2183AA to G R117H ? G542X ?Q6192F ? 2184delA R334W ? S549N ?394delTT ? 2789+5G to A R347H ? S549R ?621+1G to T ?3120+1G to A R347P ? G551D ?711+1G to T ?3659delC A455E ? R553X ?1078delT ? 3849+10kbC to T TmdngN797 ?? R560T ?1717-1G to A ?? 3876delA YhpepB499 ?? F6915E ?? 1898+1G to A ?? 3905insT METHODS/LIMITATIONS: DNA is isolated from the sample and tested for the 32 CF mutations on the [employer] Array Platform ([employer]). Regions of the CFTR gene are amplified enzymatically and subjected to a solution-phase multiplex allele-specific primer extension with subsequent hybridization to a bead array and fluorescence detection. ??Polymorphisms F508C, I506V and I507V are included in this panel to rule out false positive [id number] homozygotes. ??Reflex testing of 5T is included in the panel for R117H interpretation. False positive or negative results may occur for reasons that include genetic variants, blood transfusions, bone marrow transplantation, erroneous representation of family relationships or contamination of a sample with maternal cells. REFERENCES: 1. Updates on Carrier Screening for Cystic Fibrosis. (2011) ?? Am J Ob Gynecol 117(4):7577-2961 2. Norton, et al. (2004) Shanthi Med 6:387-91 3. Chalo et al. (2002) Shanthi Med 4:379-391 4. Preconception and carrier screening for cystic ?? fibrosis: (2001)ACOG.ACMG publication Results Released By: Vasile Pedersen, Ph.D., Manager Hydraulic Released By: Vasile Pedersen, Ph.D., Director Comment Comment 09/15/2016 1:08 PM [facility] ([facility]) Comment: The assay provides information intended to [...] Unknown Venipuncture / Unknown 09/04/2016 11:20 AM FRANCHISE SALES DIRECTOR 09/04/2016 11:43 AM FRANCHISE SALES DIRECTOR Narrative [facility] ([facility]) - 09/15/2016 1:08 PM FRANCHISE SALES DIRECTOR Performed at: ??01 - [facility] [address] ??[id number] Risk Assessment Analyst: Adeola Granados MD, Phone: ??[phone] Ignacia Roca MD LAB - HEMATOLOGY ORDERABLES [facility] ([facility]) [address] [place] [address] * CHLAMYDIA + GC AMPLIFIED PROBE (09/04/2016 11:20 AM FRANCHISE SALES DIRECTOR) Chlamydia Amplified Probe Negative Negative 09/05/2016 11:52 AM FRANCHISE SALES DIRECTOR [facility] GC Amplified Probe Negative Negative 09/05/2016 11:52 AM [facility] Microbiology URINE / Unknown Collection / Unknown 09/04/2016 11:20 AM FRANCHISE SALES DIRECTOR 09/04/2016 11:48 AM FRANCHISE SALES DIRECTOR Narrative [facility] - 09/05/2016 11:52 AM FRANCHISE SALES DIRECTOR This test was developed and its performance characteristics determined by the [facility], [facility]. Female urine specimens tested by the [facility] have not been cleared or approved by the U.S. Food and Drug Administration (FDA). The laboratory is regulated under the Clinical Laboratory Improvement Amendments (CLIA) as qualified to perform high-complexity testing. This test is used for clinical purposes. It should not be regarded as investigational or for research. Results based on detection/no detection of ribosomal RNA by amplified method. Ignacia Roca MD LAB - MICROBIOLOG Y ORDERABLES [facility] [address] [place] [address], [facility] [phone] * (ABNORMAL) CULTURE URINE (09/04/2016 11:20 AM FRANCHISE SALES DIRECTOR) Culture >100,000 CFU/mL Escherichia coli(A) CHELA 09/06/2016 5:36 AM FRANCHISE SALES DIRECTOR [facility] Culture 10,000-50,000 CFU/mL urogenital anjelica CHELA 09/06/2016 5:36 AM [facility] Urine URINE SPECIMEN OBTAINED BY CLEAN CATCH PROCEDURE / Unknown Collection / Unknown 09/04/2016 11:20 AM FRANCHISE SALES DIRECTOR 09/04/2016 11:43 AM FRANCHISE SALES DIRECTOR Narrative Organism Antibiotic Method Susceptibility Escherichia coli Amikacin CHELA 4 ug/mL: Susceptible Escherichia coli Ampicillin CHELA <=2 ug/mL: Susceptible Escherichia coli Ampicillin-sulbactam CHELA <=2 ug/mL: Susceptible Escherichia coli Cefazolin CHELA <=4 ug/mL: Susceptible Escherichia coli Cefepime CHELA <=1 ug/mL: Susceptible Escherichia coli Ceftriaxone CHELA <=1 ug/mL: Susceptible Escherichia coli Ciprofloxacin CHELA >=4 ug/mL: Resistant Escherichia coli Extended-Spectrum Beta-Lactamase CHELA NEG ug/mL: Neg Escherichia coli Gentamicin CHELA <=1 ug/mL: Susceptible Escherichia coli Meropenem CHELA <=0.25 ug/mL: Susceptible Escherichia coli Nitrofurantoin CHELA <=16 ug/mL: Susceptible Escherichia coli Piperacillin-tazobactam CHELA <=4 ug/mL: Susceptible Escherichia coli Tobramycin CHELA <=1 ug/mL: Susceptible Escherichia coli Trimethoprim-sulfamethoxazole CHELA <=20 ug/mL: Susceptible Ignacia Roca MD LAB - MICROBIOLOG Y ORDERABLES [facility] [address] [place] [phone] * URINALYSIS ROUTINE AUTO (09/04/2016 11:20 AM [facility]) Color UA Yellow Straw, Yellow, Dark Yellow 09/04/2016 11:53 AM [facility] Clarity UA Clear 09/04/2016 11:53 AM [facility] Specific [place] UA 1.006 1.005 - 1.030 09/04/2016 11:53 AM [facility] pH UA 7.5 5.0 - 8.0 pH 09/04/2016 11:53 AM [facility] Protein UA Negative Negative 09/04/2016 11:53 AM [facility] Blood UA Negative Negative 09/04/2016 11:53 AM [facility] Leukocyte UA Negative Negative 09/04/2016 11:53 AM [facility] Nitrite UA Negative Negative 09/04/2016 11:53 AM [facility] Glucose UA Negative Negative 09/04/2016 11:53 AM [facility] Ketone UA Negative Negative 09/04/2016 11:53 AM [facility] Bilirubin UA Negative Negative 09/04/2016 11:53 AM [facility] Urobilinogen UA 0.2 0.1 - 1.0 EU/dL 09/04/2016 11:53 AM [facility] Urine URINE SPECIMEN OBTAINED BY CLEAN CATCH PROCEDURE / Unknown Collection / Unknown 09/04/2016 11:20 AM [facility] 09/04/2016 11:43 AM [facility] Ignacia Roca MD LAB - URINALYSIS ORDERABLES [facility] [address] [place] [address] * HEMOGLOBIN ELECTROPHORESIS (09/04/2016 11:20 AM [facility]) Hemoglobin A1 98.0 97.1 - 99.1 % 09/09/2016 11:30 AM [facility] Hemoglobin F 0.0 0.0 - 2.0 % 09/09/2016 11:30 AM [facility] Hemoglobin S 0.0 <=0.0 % 09/09/2016 11:30 AM [facility] Hemoglobin C 0.0 <=0.0 % 09/09/2016 11:30 AM [facility] Hemoglobin A2 2.0 0.9 - 2.9 % 09/09/2016 11:30 AM [facility] Hemoglobin E 0.0 % 09/09/2016 11:30 AM [facility] Interpretation Normal Interpretation 09/09/2016 11:30 AM [facility] Blood BLOOD SPECIMEN / Unknown Venipuncture / Unknown 09/04/2016 11:20 AM FRANCHISE SALES DIRECTOR 09/04/2016 11:44 AM FRANCHISE SALES DIRECTOR Ignacia Roca MD LAB - CHEMISTRY O JEN Performing Organization Address City/[facility]/ZIP Co de Phone Number [facility] [address] [place] [address] * HIV-1 HIV-2 ANTIBODY + HIV P24 AG PANEL (09/04/2016 11:20 AM FRANCHISE SALES DIRECTOR) Pathologist [facility] HIV1/2 Ab + P24 Ag Non Reactive Non Reactive 09/04/2016 4:39 PM FRANCHISE SALES DIRECTOR [facility] Blood BLOOD SPECIMEN / Unknown Venipuncture / Unknown 09/04/2016 11:20 AM FRANCHISE SALES DIRECTOR 09/04/2016 11:44 AM FRANCHISE SALES DIRECTOR Narrative [facility] - 09/04/2016 4:39 PM FRANCHISE SALES DIRECTOR No Laboratory evidence of HIV infection. Ignacia Roca MD LAB - CHEMISTRY O JEN [facility] [place] [address] * GLUCOSE PROTEIN KETONE URINE - POINT OF CAR (09/04/2016 10:23 AM FRANCHISE SALES DIRECTOR) Glucose UA neg Negative [facility] Protein UA neg Negative [facility] Ketone UA neg Negative [facility] QC Verified Yes Yes [facility] POC T TESTING Urine URINE / Unknown 09/04/2016 1 0:23 AM FRANCHISE SALES DIRECTOR Yessenia Gonzales PENSION EXAMINER-DRAWER IN STITCH BONDING MACHINE LAB - POINT OF CARE ORDERABLES [facility] PO[facility] TEST[facility] [address] [phone] documented in this encounter Visit Diagnoses Diagnosis Encounter for supervision of normal first in first trimester ([facility])- Primary Supervision of normal first Encounter for maternal care for suspected poor growth in roman in third trimester ([facility])- Primary Aversion to food: limiting protein intake Feeding difficulties and mismanagement Abnormal ultrasound: dopplers elevated S/d ratio Abnormal findings on screening High-risk in third trimester ([facility]) Previous baby with growth restriction Encounter for screening ([facility]) documented in this encounter
--- OUTSIDE RECORDS SUMMARY | 2024-09-18 05:31 | XMS_ITS | Encounter Summary ---
Author Organization [facility] Address [address] [place] [address] Care Team Providers Care Beef Cattle Farmer Name Role Phone Unavailable Primary Care Provider Unavailabl e Encounter Details Date Type Department Care Team (Latest Contact Info) Description 02/17/2017 9:56 AM CDT Hospital Encounter [facility] MATERNAL/ EVALUATION UNIT [address] [facility] [facility] [address] [place] [address] Tammy Jesus, RADIO DIVISION CAPTAIN-BACK STRIP MACHINE OPERATOR [address] [place] [address] Discharge Disposition: Home or Self Care Social [...] evening meal 60 Tab 2 03/12/2017 11/28/2018 ibuprofen (MOTRIN) 600 MG tablet Take 1 Tab by mouth every 6 hours as needed for Pain 60 Tab 2 03/12/2017 11/28/2018 documented as of this encounter Plan of Treatment Upcoming Encounters Date Type Department Care Team (Late st Contact Info) Description 09/19/2024 8:15 AM CONTENT MANAGER Hospital Encounter [facility] [address] [place] [address] [phone] documented as of this encounter Visit Diagnoses Not on filedocumented in this encounter
--- OUTSIDE RECORDS SUMMARY | 2024-09-18 05:31 | XMS_ITS | Encounter Summary ---
Author Organization [facility] Address [address] [place] [address] Care Team Providers Care Purse Maker Name Role Phone Unavailable Primary Care Provider Unavailabl e Reason for Visit * Reason Comments FAD NST Encounter Details Date Type Department Care Team (Latest Contact Info) Description 02/03/2017 10:10 AM CDT Hospital Encounter [facility] MATERNAL/ EVALUATION UNIT [address] [facility] [address] [facility] [place] [address] Gibran Quiroz MD [address] [place] [address] Discharge Disposition: Home or Self Care Social [...] Sig Dispensed Refills Start Date End Date amoxicillin-clavulana te (AUGMENTIN) 500-125 MG tablet Take 1 Tab by mouth every 8 hours for 5 days 15 Tab 02/04/2017 02/09/2017 docusate sodium (COLACE) 100 MG capsule Take 1 Cap by mouth once daily 30 Cap 1 12/23/2016 02/10/2017 famotidine (PEPCID) 20 MG tablet Take 1 Tab by mouth once daily as needed for Heartburn (Indigestion) 30 Tab 2 11/25/2016 11/28/2018 ondansetron (ZOFRAN) 4 MG tablet Take 1 [...] of this encounter Progress Notes * Marychuy Nj, DIRECTOR TITLE - 02/03/2017 4:02 PM CDT SW was requested to meet with pt as she was finishing her Centering appt. Pt is tearful and admits to being under a great deal of stress. She is currently living with her boyfriend, but plans to end this relationship, and says he has mood swings . She will be moving in with her grandmother, but says this will also be a stressful living environment. Pt has a job she really likes at the [employer], but they have asked her not to work until after her due to potential exposure to unsanitary conditions. Pt says she will be able to resume this job, but at the moment the lack of income is another source of stress. She says she does not have a car, nor does she have friends who can be of support to her. Pt says she is also concerned with both hers and baby's lack of weight gain, but admits that the excessive stress causes a decrease in her appetite, so she has not been eating. Pt would like to enroll in school. She does not have the means at this time, and says this is another stressor for her. SW provided pt with contact numbers for 3 maternity homes ( [facility], [facility], [facility]) and encouraged her to call to establish a stable and safe living environment. Also discussed the option of mood stabilizing meds, but pt says, I'm not a medication person and does not want herbaby exposed to medications, but pt also agrees that her stress level is a negative impact on the baby as well. Pt will be admitted for evaluation today and will likely meet with psychiatry, and SW encouraged her to discuss the risks and benefits of meds during . SW provided pt with SW contact information to call for additional resources or support. Marychuy Nj LCSW [employer] [phone] documented in this encounter Plan of Treatment Upcoming Encounters Date Type Department Care Team (Late st Contact Info) Description 09/19/2024 8:15 AM VOCATIONAL COORDINATOR Hospital Encounter [facility] M[facility] [address] [place] [phone] documented as of this encounter Visit Diagnoses Not on filedocumented in this encounter
--- OUTSIDE RECORDS SUMMARY | 2024-09-18 05:31 | XMS_ITS | Encounter Summary ---
Author Organization [facility], [facility] Address [address] [place] [address] Care Team Providers Care E Learning Coordinator Name Role Phone None, Pcp Primary Care Provider Unavailabl e Reason for Visit * Reason Comments Rash itchy rash to chest, neck and core. states sx for several weeks Encounter Details Date Type Department Care Team (Late st Contact Info) Description 08/21/2013 5:19 PM ENERGY AND CONSERVATION TECHNICIAN - 08/21/2013 7:36 PM ENERGY AND CONSERVATION TECHNICIAN Emergency ER at [address] [address] Efe Mccurdy MD [address] [place] [address] [place] [address] Apolinar Elizabeth MD [address] [place] [address] [phone] Tinea corporis (Primary Dx); Rash And Other Nonspecific Skin Eruption Discharge Disposition: Home or Self Care Social [...] Sign Reading Time Taken Comments Blood Pressure 136/73 08/21/2013 4:18 PM ENERGY AND CONSERVATION TECHNICIAN Pulse 103 08/21/2013 4:18 PM ENERGY AND CONSERVATION TECHNICIAN Temperature 36.4 ??C (97.6 ??F) 08/21/2013 4:18 PM CS T Respiratory Rate 16 08/21/2013 4:18 PM ENERGY AND CONSERVATION TECHNICIAN Oxygen Saturation 100% 08/21/2013 4:18 PM ENERGY AND CONSERVATION TECHNICIAN Inhaled Oxygen Concentration - - Weight 49.9 kg (110 lb) 08/21/2013 4:18 PM ENERGY AND CONSERVATION TECHNICIAN Height 154.9 cm (5' 1 ) 08/21/2013 4:18 PM ENERGY AND CONSERVATION TECHNICIAN Body Mass Index 20.78 08/21/2013 4:18 PM ENERGY AND CONSERVATION TECHNICIAN Body Mass Index Percentile 45.30% 08/21/2013 4:1 8 PM ENERGY AND CONSERVATION TECHNICIAN Growth Chart: [facility] (Girls, 2- 20 Years) documented in this encounter Discharge Instructions * Discharge Instructions* Luisa Pinzon PA - 08/21/2013 7:06 PM ENERGY AND CONSERVATION TECHNICIAN Images from the original note were not included. DISCUSSED, PLEASE USE JUST THE KETOCONAZOLE FOR THE FIRST X 2 WEEKS. IF NO SUCCESS, SWITCH TO TRIAMCINOLINE... RASH WORSENS, DISCONTINUE THE TRIAMCINOLONE. IF NO SUCCESS, TRY THE PERMETHRIN AND FOLLOW CLOSE INSTRUCTIONS FOR SCABIES CLEARANCE IN THE HOUSE Candidiasis, Fungal Infections, Ringworm, Yeast Infections Ringworm infection is a fungal infection which usually infects the skin and mucous membranes (like the membranes that line the mouth). It has nothing to do with worms. A fungus is an organism (life form, kind of like a germ) that lives on cells (the outer layer of skin, hair and nails). It does not go deeper than the surface of the skin. It It can involve the entire body. It can spread from infected humans, soil and pets. The medical term for this fungus is Tinea. Tinea is a group of infections of the skin, nails or hair caused by fungal organisms. They often cause a red, round itchy rash. Types are named by location and include an infection of the skin (Tinea versicolor), ringworm (Tinea corporis), athlete's foot (Tinea pedis), ringworm of the scalp (Tinea capitis) and jock itch (Tinea cruris). Infections usually grow on our bodies where it is warm and moist. This is the reason it is found under the breasts, in skin folds and between the toes, among other places. This organism is normally found on our skin and only causes problems when it starts to overgrow in conditions it favors or likes. SYMPTOMS ?? Itching. ?? Rash. ?? Irritation. ?? Swelling. ?? Blisters. ?? Cracking and peeling of the skin. ?? Thick, dry, ragged and discolored toenails. Intertriginous infections, like those infections under the breast and in skin folds, are the most common type. These also occur under the arms, and in the groin or belly button (umbilicus). The infection usually shows up as a red itchy rash which is often weepy and damp. SOME OF THE CAUSES OF THESE INFECTIONS ARE: ?? Antibiotics taken by mouth, through a shot, or intravenous. These kill the normal germs (bacteria) on the skin, so yeasts can overgrow. ?? Steroid use weakens (depresses) the immune response or the body's ability to fight infection. ?? Being very overweight (obesity). ?? Poor immune state and problems with the immune system. ?? Immunosuppressive therapy such as cancer or organ transplant drugs. ?? . ?? Diabetes mellitus and other glandular problems or serious medical illness. ?? Going barefoot in public locker rooms, saunas and showers. ?? Contact from pets. ?? Contact from other infected humans. ?? Contact with infected soil. ?? AIDS. DIAGNOSIS Your caregiver can usually diagnose this infection on exam. Sometimes, scrapings of the skin are done to look for the cause under a microscope or get cultures of the germ. TREATMENT ?? Cgrb-dpp-orshytb (OTC) medications are available for treating this problem. ?? It is important to keep the areas clean and dry. Just getting rid of the conditions which allowed the fungus to start growing is often a cure or fix. ?? Areas which have lost skin color (pigment) may not get color back (repigment) until the fungus is clear. If this is a hole in your noe (as with Tinea versicolor), you may need more sun exposure. ?? Call your caregiver if your OTC treatment is not working. HOME CARE INSTRUCTIONS ?? Fungal infections may be treated with ukqe-rhc-lgeisjt medications, topical creams, ointments ororal medications. Ask your caregiver or pharmacist. ?? If you are using a cream or ointment, wash infected skin. Dry it completely before applying the cream. ?? If your pet have the same infection, have it treated by your screener and blender operator. ?? Do not wear other people???s cloths or shoes. ?? Keep your feet, areas under your breasts, your belly button and groin areas dry. ?? Wear cotton or wool socks. ?? Do not wear tight clothing. ?? Change your socks often if your feet sweat. ?? Do not wear shoes made of vinyl or rubber. Return of the infection is common because the causative organism is normally found on the skin or the treatment was not strong or long enough. SEEK MEDICAL CARE IF: ?? The ringworm patch (fungus) continues to spread after 7 days of treatment. ?? The rash is not gone in 4 weeks. Fungal infections are slow to respond to treatment. Some redness (erythema) may remain for several weeks after the fungus is gone. ?? The area becomes red, warm, tender and swollen beyond the patch. (This may be a secondary bacterial infection). ?? An oral temperature above 100?? F (37.8?? C) develops. MAKE SURE YOU: ?? Understand these instructions. ?? Will watch your condition. ?? Will get help right away if you are not doing well or get worse. Document Released: 06/17/2005 Document Re-Released: 12/03/2009 [facility]?? Patient Information ??2010 [employer].Rash A rash is a change in the color or texture of your skin. There are many different types of rashes. You may have other problems that accompany your rash. CAUSES ?? Infections. ?? Allergic reactions. This can include allergies to pets or foods. ?? Certain medicines. ?? Exposure to certain chemicals, soaps, or cosmetics. ?? Heat. ?? Exposure to poisonous plants. ?? Tumors, both cancerous and noncancerous. SYMPTOMS ?? Redness. ?? Scaly skin. ?? Itchy skin. ?? Dry or cracked skin. ?? Bumps. ?? Blisters. ?? Pain. DIAGNOSIS Your caregiver may do a physical exam to determine what type of rash you have. A skin sample (biopsy) may be taken and examined under a microscope. TREATMENT Treatment depends on the type of rash you have. Your caregiver may prescribe certain medicines. Forserious conditions, you may need to see a skin doctor (ankle patch molder). HOME CARE INSTRUCTIONS ?? Avoid the substance that caused your rash. ?? Do not scratch your rash. This can cause infection. ?? You may take cool baths to help stop itching. ?? Only take zqez-hos-acualih or prescription medicines as directed by your caregiver. ?? Keep all follow-up appointments as directed by your caregiver. SEEK IMMEDIATE MEDICAL CARE IF: ?? You have increasing pain, swelling, or redness. ?? You have a fever. ?? You have new or severe symptoms. ?? You have body aches, diarrhea, or vomiting. ?? Your rash is not better after 3 days. MAKE SURE YOU: ?? Understand these instructions. ?? Will watch your condition. ?? Will get help right away if you are not doing well or get worse. Document Released: 08/27/2003 Document Revised: 11/28/2012 Document Reviewed: 06/20/2012 [facility] Patient Information ??2013 [employer].Ringworm, Body [Tinea Corporis] Ringworm is a fungal infection of the skin and hair. Another name for this problem is Tinea Corporis. It has nothing to do with worms. A fungus is an organism that lives on cells (the outer layer of skin). It can involve the entire body. It can spread from infected pets. Tinea corporis can be a problem in wrestlers who may get the infection form other players/opponents, equipment and mats. DIAGNOSIS A skin scraping can be obtained from the affected area and by looking for fungus under the microscope. This is called a REINIER examination. HOME CARE INSTRUCTIONS ?? Ringworm may be treated with a topical antifungal cream, ointment, or oral medications. ?? If you are using a cream or ointment, wash infected skin. Dry it completely before application. ?? Scrub the skin with a buff puff or abrasive sponge using a shampoo with ketoconazole to remove skin and help treat the ringworm. ?? Have your pet treated by your screener and blender operator if it has the same infection. SEEK MEDICAL CARE IF: ?? Your ringworm patch (fungus) continues to spread after 7 days of treatment. ?? Your rash is not gone in 4 weeks. Fungal infections are slow to respond to treatment. Some redness (erythema) may remain for several weeks after the fungus is gone. ?? The area becomes red, warm, tender, and swollen beyond the patch. This may be a secondary bacterial (germ) infection. ?? You have a fever. Document Released: 09/03/2001 Document Revised: 03 Scabies Scabies are small bugs (mites) that janae under the skin and cause red bumps and severe itching. These bugs can only be seen with a microscope. Scabies are highly contagious. They can spread easily from person to person by direct contact. They are also spread through sharing clothing or linens that have the scabies mites living in them. It is not unusual for an entire family to become infected through shared towels, clothing, or bedding. HOME CARE INSTRUCTIONS ?? Your caregiver may prescribe a cream or lotion to kill the mites. If cream is prescribed, massage the cream into the entire body from the neck to the bottom of both feet. Also massage the cream into the scalp and face if your child is less than 1 year old. Avoid the eyes and mouth. Do not wash your hands after application. ?? Leave the cream on for 8 to 12 hours. Your child should bathe or shower after the 8 to 12 hour application period. Sometimes it is helpful to apply the cream to your child right before bedtime. ?? One treatment is usually effective and will eliminate approximately 95% of infestations. For severe cases, your caregiver may decide to repeat the treatment in 1 week. Everyone in your household should be treated with one application of the cream. ?? New rashes or burrows should not appear within 24 to 48 hours after successful treatment. However, the itching and rash may last for 2 to 4 weeks after successful treatment. Your caregiver may prescribe a medicine to help with the itching or to help the rash go away more quickly. ?? Scabies can live on clothing or linens for up to 3 days. All of your child's recently used clothing, towels, stuffed toys, and bed linens should be washed in hot water and then dried in a dryer for at least 20 minutes on high heat. Items that cannot be washed should be enclosed in a plastic bag for at least 3 days. ?? To help relieve itching, bathe your child in a cool bath or apply cool washcloths to the affected areas. ?? Your child may return to school after treatment with the prescribed cream. SEEK MEDICAL CARE IF: ?? The itching persists longer than 4 weeks after treatment. ?? The rash spreads or becomes infected. Signs of infection include red blisters or yellow-noe crust. Document Released: 09/06/2006 Document Revised: 11/28/2012 Document Reviewed: 01/15/2010 [facility]?? Patient Information ??2013 [employer]. Eczema Atopic dermatitis, or eczema, is an inherited type of sensitive skin. Often people with eczema havea family history of allergies, asthma, or hay fever. It causes a red itchy rash and dry scaly skin.The itchiness may occur before the skin rash and may be very intense. It is not contagious. Eczema is generally worse during the cooler winter months and often improves with the warmth of summer. Eczema usually starts showing signs in infancy. Some children outgrow eczema, but it may last through adulthood. Flare-ups may be caused by: ?? Eating something or contact with something you are sensitive or allergic to. ?? Stress. DIAGNOSIS The diagnosis of eczema is usually based upon symptoms and medical history. TREATMENT Eczema cannot be cured, but symptoms usually can be controlled with treatment or avoidance of allergens (things to which you are sensitive or allergic to). ?? Controlling the itching and scratching. ?? Use ioxp-gpo-cebrupn antihistamines as directed for itching. It is especially useful at night when the itching tends to be worse. ?? Use bpgr-hnb-ilwuroc steroid creams as directed for itching. ?? Scratching makes the rash and itching worse and may cause impetigo (a skin infection) if fingernails are contaminated (dirty). ?? Keeping the skin well moisturized with creams every day. This will seal in moisture and help prevent dryness. Lotions containing alcohol and water can dry the skin and are not recommended. ?? Limiting exposure to allergens. ?? Recognizing situations that cause stress. ?? Developing a plan to manage stress. HOME CARE INSTRUCTIONS ?? Take prescription and bssl-fla-pazpqtn medicines as directed by your caregiver. ?? Do not use anything on the skin without checking with your caregiver. ?? Keep baths or showers short (5 minutes) in warm (not hot) water. Use mild cleansers for bathing.You may add non-perfumed bath oil to the bath water. It is best to avoid soap and bubble bath. ?? Immediately after a bath or shower, when the skin is still damp, apply a moisturizing ointment to the entire body. This ointment should be a petroleum ointment. This will seal in moisture and helpprevent dryness. The thicker the ointment the better. These should be unscented. ?? Keep fingernails cut short and wash hands often. If your child has eczema, it may be necessary to put soft gloves or mittens on your child at night. ?? Dress in clothes made of cotton or cotton blends. Dress lightly, as heat increases itching. ?? Avoid foods that may cause flare-ups. Common foods include cow's milk, peanut butter, eggs and wheat. ?? Keep a child with eczema away from anyone with fever blisters. The virus that causes fever blisters (herpes simplex) can cause a serious skin infection in children with eczema. SEEK MEDICAL CARE IF: ?? Itching interferes with sleep. ?? The rash gets worse or is not better within one week following treatment. ?? The rash looks infected (pus or soft yellow scabs). ?? You or your child has an oral temperature above 102?? F (38.9?? C). ?? Your baby is older than 3 months with a rectal temperature of 100.5?? F (38.1?? C) or higher formore than 1 day. ?? The rash flares up after contact with someone who has fever blisters. SEEK IMMEDIATE MEDICAL CARE IF: ?? Your baby is older than 3 months with a rectal temperature of 102?? F (38.9?? C) or higher. ?? Your baby is older than 3 months or younger with a rectal temperature of 100.4?? F (38?? C) or higher. Document Released: 09/03/2001 Document Revised: 11/28/2012 Document Reviewed: 07/09/2010 [facility]?? Patient Information ??2012 [employer]. Document Reviewed: 02/14/2010 [facility]?? Patient Information ??2012 [employer].Ringworm, Body [Tinea Corporis] Ringworm is a fungal infection of the skin and hair. Another name for this problem is Tinea Corporis. It has nothing to do with worms. A fungus is an organism that lives on cells (the outer layer of skin). It can involve the entire body. It can spread from infected pets. Tinea corporis can be a problem in wrestlers who may get the infection form other players/opponents, equipment and mats. DIAGNOSIS A skin scraping can be obtained from the affected area and by looking for fungus under the microscope. This is called a REINIER examination. HOME CARE INSTRUCTIONS ?? Ringworm may be treated with a topical antifungal cream, ointment, or oral medications. ?? If you are using a cream or ointment, wash infected skin. Dry it completely before application. ?? Scrub the skin with a buff puff or abrasive sponge using a shampoo with ketoconazole to remove skin and help treat the ringworm. ?? Have your pet treated by your screener and blender operator if it has the same infection. SEEK MEDICAL CARE IF: ?? Your ringworm patch (fungus) continues to spread after 7 days of treatment. ?? Your rash is not gone in 4 weeks. Fungal infections are slow to respond to treatment. Some redness (erythema) may remain for several weeks after the fungus is gone. ?? The area becomes red, warm, tender, and swollen beyond the patch. This may be a secondary bacterial (germ) infection. ?? You have a fever. Document Released: 09/03/2001 Document Revised: 11/28/2012 Document Reviewed: 02/14/2010 [facility]?? Patient Information ??2013 [employer]. GY AND CONSERVATION TECHNICIAN * Discharge Instructions* Document, Scanned - 08/22/2013 10:07 PM ENERGY AND CONSERVATION TECHNICIAN GY AND CONSERVATION TECHNICIAN documented in this encounter Medications at Time of Discharge Medication Sig Dispensed Refills Start Date End Date diphenhydrAMINE (BENADRYL) 25 MG capsule Take 1 Cap by mouth every 4 hours as needed for Itching. 0 08/21/2013 01/18/2015 ketoconazole (NIZORAL) 2 % cream Apply to affected area once daily. 30 g g 08/21/2013 01/18/2015 permethrin (ELIMITE) 5 % cream 60 g 0 08/21/2013 01/18/2015 triamcinolone acetonide (KENALOG) 0.5 % cream Apply to affected area 2 times daily. 15 g 0 08/21/2013 01/18/2015 documented as of this encounter ED Notes * Luisa Pinzon PA - 08/21/2013 6:43 PM CST Provider contact with the patient: 08/21/2013 18:43 Marnie Jones [id number] [facility] EM[facility]Y [facility]PART[facility] History Chief Complaint Patient presents with ??? Rash itchy rash to chest, neck and core. states sx for several weeks Rash The history is provided by the patient. This is a new problem. Episode onset: 1 month ago. The problem has been gradually worsening. The problem is associated with nothing. There has been no fever. The rash is located on the chest, neck, abdomen, left hand, right hand, upper back and lower back.Thepatient is experiencing no pain. The pain has been constant since onset. Rash type: PLAQUES.Associated symptoms include itching and scaling.Pertinent negatives include no blisters, no pain, no weeping, no oral lesions, no facial swelling or no extremity swelling.She has tried nothing for the symptoms. The risk factors do not include recent change in medication, new medication or environmental. Past Medical History Diagnosis Date ??? NEGATIVE PAST MEDICAL HISTORY - SEE PROBLEM LIST ??? Chlamydia contact, treated 07/29/13 Past Surgical History Procedure Date ??? Negative [...] file Review of Systems Review of Systems Skin: Positive for itching and rash. All other systems reviewed and are negative. Physical Exam BP 136/73 Pulse 103 Temp 97.6 ??F Resp 16 Ht 1.549 m (5' 1 ) Wt 49.896 kg (110 lb) BMI 20.78 kg/m2 SpO2 100% Physical Exam Nursing note and vitals reviewed. Constitutional: She is oriented to person, place, and time and well-developed, well-nourished, and in no distress. No distress. HENT: Head: Normocephalic and atraumatic. Right Ear: External ear normal. Left Ear: External ear normal. Nose: Nose normal. Mouth/Throat: Oropharynx is clear and moist. No oropharyngeal exudate. Eyes: Conjunctivae normal and EOM are normal. Pupils are equal, round, and reactive to light. Righteye exhibits no discharge. Left eye exhibits no [...] distension. There is no tenderness. Thereis no rebound and no guarding. Musculoskeletal: Normal range of motion. She exhibits no edema and no tenderness. Neurological: She is alert and oriented to person, place, and time. Gait normal. GCS score is 15. Skin: Skin is warm and dry. She is not diaphoretic. SHARPLY DEMARCATED, SCALING PLAQUES SOME WITH NOTABLE PAPULES AT MARGINS DISCRETELY SCATTERED OVER NECK, CHEST, ABD AND BACK WITH ILL DEFINED DISCOLORATION INTRA DIGITS BILAT HANDS Psychiatric: Mood, memory, affect and judgment normal. Medications Current Outpatient Prescriptions Medication Status Sig Dispense Refill ??? triamcinolone acetonide (KENALOG) 0.5 % cream Active Apply to affected area 2 times daily. 15 g0 ??? permethrin (ELIMITE) 5 % cream Active 60 g 0 ??? diphenhydrAMINE (BENADRYL) 25 MG capsule Active Take 1 Cap by mouth every 4 hours as needed forItching. 0 ??? ketoconazole (NIZORAL) 2 % cream Active Apply to affected area once daily. 30 g g Procedures Procedures EKG Interpretation Lab Interpretation Oxygen Saturation Interpretation The oxygen saturation level is: 100%. The patient was on Room Air for the saturation measurement. Measurement frequency: Spot Check. Oxygen saturation interpretation is Normal. Intervention(s) used: None. Results for orders placed during the hospital encounter of 08/21/13 HCG URINE QUALITATIVE - POINT OF CARE (IP) Component Value Range HCG Qual Urine Negative Negative QC Verified yes Yes HCG URINE QUALITATIVE - POINT OF CARE (IP) Component Value Range HCG Qual Urine Negative Negative QC Verified yes Yes Progress Notes ED Course Medical Decision Making I have reviewed the: Previous Chart, Nursing Notes and Vitals. I have interpreted the following results: Labs and Oxygen Saturation. Orders Placed This Encounter ??? HCG URINE QUALITATIVE - POINT OF CARE (IP) ??? HCG URINE QUALITATIVE - POINT OF CARE (IP) ??? ketoconazole (NIZORAL) 2 % cream ??? triamcinolone acetonide (KENALOG) 0.5 % cream ??? permethrin (ELIMITE) 5 % cream ??? diphenhydrAMINE (BENADRYL) 25 MG capsule Clinical Impression Final diagnoses: Tinea corporis (Primary) Rash and other nonspecific skin eruption GY AND CONSERVATION TECHNICIAN documented in this encounter Miscellaneous Notes * Miscellaneous Scans - Document, Scanned - 08/22/2013 10:07 PM CST GY AND CONSERVATION TECHNICIAN documented in this encounter Plan of Treatment Upcoming Encounters Date Type Department Care Team (Late st Contact Info) Description 09/19/2024 8:15 AM ENERGY AND CONSERVATION TECHNICIAN Hospital Encounter [facility] [address] [place], [place] [id number] documented as of this encounter Procedures Procedure Name Priority Date/Time Associated Diagnosis Comments HCG URINE QUALITATIVE - POINT OF CARE STAT 08/21/2013 7:36 PM ENERGY AND CONSERVATION TECHNICIAN HCG URINE QUALITATIVE - POINT OF CARE STAT 08/21/2013 7:23 PM ENERGY AND CONSERVATION TECHNICIAN documented in this encounter Results * HCG URINE QUALITATIVE - POINT OF CARE (IP) (08/21/2013 7:36 PM ENERGY AND CONSERVATION TECHNICIAN) HCG Qual Urine Negative Negative [facility] QC Verified yes Yes [facility] POC T TESTING Urine specimen (specimen) URINE / Unknown 08/21/2013 7:36 PM ENERGY AND CONSERVATION TECHNICIAN Luisa [facility] - POINT OF CARE ORDERABLES Performing Organization Address City/[facility] Co de Phone Number [facility] [id number] [place] [address] * HCG URINE QUALITATIVE - POINT OF CARE (IP) (08/21/2013 7:23 PM ENERGY AND CONSERVATION TECHNICIAN) HCG Qual Urine Negative Negative [facility] QC Verified yes Yes [facility] POC T TESTING Urine specimen (specimen) URINE / Unknown 08/21/2013 7:23 PM ENERGY AND CONSERVATION TECHNICIAN Luisa [facility] - POINT OF CARE ORDERABLES Performing Organization Address [facility] [facility] de Phone Number [facility] POCT TESTING [id number] [place] [address] documented in this encounter Visit Diagnoses Diagnosis Tinea corporis- Primary Dermatophytosis of the body Rash and other nonspecific skin eruption Encounter for maternal care for suspected poor growth in roman in third trimester (HCC)- Primary Aversion to food: limiting protein intake Feeding difficulties and mismanagement Abnormal ultrasound: dopplers elevated S/d ratio Abnormal findings on screening High-risk in third trimester (HCC) Previous baby with growth restriction Encounter for screening ([facility]) documented in this encounter Care Teams E Learning Coordinator Relationship Specialty Start Date End Date None, Pcp [place] [address] PCP - General Nurse Practitioner 12/04/12 documented as of this encounter
--- OUTSIDE RECORDS SUMMARY | 2024-09-18 05:31 | XMS_ITS | Encounter Summary ---
Author Organization [facility] Address [address] [place] [address] Care Team Providers Care Microbiology Director Name Role Phone Unavailable Primary Care Provider Unavailabl e Encounter Details Date Type Department Care Team (Late st Contact Info) Description 12/13/2016 3:23 PM CDT - 12/13/2016 3:24 PM CDT Emergency ER at [address] [id number] Discharge Disposition: Home or Self Care Social [...] needed for Nausea/Vomiting 30 Tab 10/06/2016 02/10/2017 Vit-Fe Fumarate-FA ( VITAMINS) 28-0.8 MG TABS Take 1 Tab by mouth once daily 90 Tab 3 10/06/2016 02/10/2017 documented as of this encounter ED Notes * Kareem Howard, RN - 12/13/2016 3:24 PM CDT 25 weeks sent to weu. documented in this encounter Plan of Treatment Upcoming Encounters Date Type Department Care Team (Late st Contact Info) Description 09/19/2024 8:15 AM FILL TECHNICIAN Hospital Encounter [facility] [address] [place] [id number] documented as of this encounter Visit Diagnoses Not on filedocumented in this encounter
--- OUTSIDE RECORDS SUMMARY | 2024-09-18 05:31 | XMS_ITS | Encounter Summary ---
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 CDT [facility] Hematocrit 31.8(L) 35.9 - 45.5 % 02/03/2017 4:56 PM CDT [facility] MCV 88.8 80.7 - 98.3 fl 02/03/2017 4:56 PM CDT [facility] MCH 28.8 26.7 - 34.0 pg 02/03/2017 4:56 PM CDT [facility] MCHC 32.4 30.8 - 35.9 gm/dL 02/03/2017 4:56 PM CDT [facility] Platelet Count 306 153 - 416 x10E9/L 02/03/2017 4:56 PM CDT [facility] RDW-CV 13.6 12.1 - 14.9 % 02/03/2017 4:56 PM CDT [facility] MPV 10.6 9.4 - 12.9 fl 02/03/2017 4:56 PM CDT [facility] Neutrophils % 76.1(H) 44.0 - 73.0 % 02/03/2017 4:56 PM CDT [facility] Lymphocytes % 11.1(L) 20.0 - 43.0 % 02/03/2017 4:56 PM CDT [facility] Monocytes % 7.2 5.0 - 13.0 % 02/03/2017 4:56 PM CDT [facility] Eosinophils % 0.5 0.0 - 6.0 % 02/03/2017 4:56 PM CDT [facility] Basophils % 0.3 0.0 - 2.0 % 02/03/2017 4:56 PM CDT [facility] Immature Granulocytes 4.8(H) 0 - 1 % 02/03/2017 4:56 PM CDT [facility] Neutrophil Absolute 12.69(H) 2.01 - 7.14 x10E9/L 02/03/2017 4:56 PM CDT [facility] Lymphocytes Absolute 1.85 1.07 - 3.94 x10E9/L 02/03/2017 4:56 PM CDT [facility] Monocytes Absolute 1.20(H) 0.26 - 1.07 x10E9/L 02/03/2017 4:56 PM CDT [facility] Eosinophils Absolute 0.09 0 - 0.47 x10E9/L 02/03/2017 4:56 PM CDT [facility] Basophils Absolute 0.05 0 - 0.08 x10E9/L 02/03/2017 4:56 PM CDT [facility] Immature Granulocytes Absolute 0.80(H) 0.00 - 0.06 x10E9/L 02/03/2017 4:56 PM CDT [facility] nRBC Auto 0 /100 WBC 02/03/2017 4:56 PM CDT [facility] Blood BLOOD SPECIMEN / Unknown Venipuncture / Unknown 02/03/2017 4:17 PM CDT 02/03/2017 4:40 PM CDT Elma Obrien MD LAB - HEMATOLOGY ORD ERABLES [facility] [address] [place] [address] * (ABNORMAL) COAGULATION PANEL W D-DIMER (02/03/2017 4:17 PM CDT) PT 9.6 9.5 - 11.6 sec 02/03/2017 5:04 PM CDT [facility] INR 0.9 0.9 - 1.1 02/03/2017 5:04 PM CDT [facility] PTT 23.1 21.0 - 32.0 sec 02/03/2017 5:04 PM CDT [facility] Fibrinogen 548(H) 200 - 400 mg/dL 02/03/2017 5:04 PM CDT [facility] D-Dimer 1.32(H) 0.17 - 0.5 mg/L FEU 02/03/2017 5:04 PM CDT [facility] Platelet Count 306 153 - 416 x10E9/L 02/03/2017 5:04 PM CDT [facility] Blood BLOOD SPECIMEN / Unknown Venipuncture / Unknown 02/03/2017 4:17 PM CDT 02/03/2017 4:40 PM CDT [facility] - 02/03/2017 5:04 PM CDT [...] Obrien MD LAB - COAGULATION OR DERABLES [facility] [address] [place] [address] * TYPE + SCREEN PANEL (02/03/2017 4:17 PM CDT) ABO A 02/03/2017 5:47 PM CDT [facility] Rh Type Positive 02/03/2017 5:47 PM CDT [facility] Comment:History check perfor med. No retype required. Antibody Screen Negative 02/03/2017 5:47 PM CDT [facility] Blood Bank BLOOD SPECIMEN / Unknown Venipuncture / Unknown 02/03/2017 4:17 PM CDT 02/03/2017 4:40 PM CDT Elma Obrien MD LAB - BLOOD BANK ORD ERABLES [facility] [address] documented in this encounter Visit Diagnoses Not on filedocumented in this encounter Administered Medications Inactive Administered Medications - up to 3 most recent administrations Medication Order MAR Action Action Date Dose Rate Site 0.9% NaCl injection 10 mL 10 mL, Intracatheter, EVERY 8 HOURS, First dose on Wed02/03/17 at 1615, Until Discontinued $ Given 02/04/2017 12:40 PM CDT 10 mL $ Given 02/04/2017 4:14 AM CDT 10 mL $ Given 02/03/2017 8:30 PM CDT 10 mL 0.9% NaCl injection 10 mL 10 mL, Intracatheter, PRN, Other, peripheral line flush, Starting on Wed02/03/17 at 1537, Until Ruby 02/04/17 at 1743, Flush after each use and blood draws. acetaminophen (TYLENOL) tablet 650 mg 650 mg, Oral, ONCE, 1 dose, On Wed02/03/17 at 1745 $ Given 02/03/2017 5:28 PM CDT 650 mg amoxicillin-clavulanate (AUGMENTIN) tablet 500 mg 500 mg, Oral, EVERY 8 HOURS, First dose on Wed02/03/17 at 1630, Until Discontinued $ Given 02/04/2017 3:52 PM CDT 500 mg $ Given 02/04/2017 7:32 AM CDT 500 mg $ Given 02/04/2017 12:04 AM CDT 500 mg diphenhydrAMINE (BENADRYL) capsule 25 mg 25 mg, Oral, AT BEDTIME PRN, Insomnia, Starting on Wed02/03/17 at 1537, Until Ruby 02/04/17 at 1743 $ Given 02/03/2017 8:30 PM CDT 25 mg diphenhydrAMINE (BENADRYL) capsule 25 mg 25 mg, Oral, ONCE, 1 dose, On Ruby 02/04/17 at 0030 $ Given 02/04/2017 12:09 AM CDT 25 mg docusate sodium (COLACE) capsule 100 mg 100 mg, Oral, 2 TIMES DAILY, First dose on Wed02/03/17 at 2100, Until Discontinued $ Given 02/04/2017 7:32 AM CDT 100 mg vitamin with iron tablet 1 Tab 1 tablet, Oral, DAILY, First dose on Wed02/03/17 at 1615, Until Discontinued $ Given 02/04/2017 7:32 AM CDT 1 tablet documented in this encounter Active and Recently Administered Medications Times are shown in CDT. Scheduled Medication Order 02/02/2017 02/03/2017 02/04/2017 0.9% NaCl injection 10 mL(Linked Group 1) 10 mL, Intracatheter, EVERY 8 HOURS, First dose on Wed02/03/17 at 1615, Until Discontinued 1626 ($ Given - Provider: Janet Miranda RN)2030 ($ Given - Provider: Biju Sofia RN) 0414 ($ Given - Provider: Biju Sofia RN)1240 ($ Given - Provider: Ignacia Valdes RN) acetaminophen (TYLENOL) tablet 650 mg (COMPLETED) 650 mg, Oral, ONCE, 1 dose, On Wed02/03/17 at 1745 1728 ($ Given - Provider: Tami Thompson RN) amoxicillin-clavulanate (AUGMENTIN) tablet 500 mg 500 mg, Oral, EVERY 8 HOURS, First dose on Wed02/03/17 at 1630, Until Discontinued 1625 ($ Given - Provider: Janet Miranda RN) 0004 ($ Given - Provider: Biju Sofia RN)0732 ($ Given - Provider: Ignacia Valdes, CL)1552 ($ Given - Provider: Ignacia Valdes RN) diphenhydrAMINE (BENADRYL) capsule 25 mg (COMPLETED) 25 mg, Oral, ONCE, 1 dose, On Ruby 02/04/17 at 0030 0009 ($ Given - Provider: Biju Sofia RN) docusate sodium (COLACE) capsule 100 mg 100 mg, Oral, 2 TIMES DAILY, First dose on Wed02/03/17 at 2100, Until Discontinued 2100 (Not Administered - Provider: Biju Sofia RN - Reason: Refused-Patient) 0732 ($ Given - Provider: Ignacia Valdes, CL) vitamin with iron tablet 1 Tab 1 tablet, Oral, DAILY, First dose on Wed02/03/17 at 1615, Until Discontinued 1615 (Not Administered - Provider: Janet Miranda RN - Reason: See Comments - Comment: took at home) 0732 ($ Given - Provider: Ignacia Valdes RN) PRN Medication Order 02/02/2017 02/03/2017 02/04/2017 0.9% NaCl injection 10 mL(Linked Group 1) 10 mL, Intracatheter, PRN, Other, peripheral line flush, Starting on Wed02/03/17 at 1537, Until Ruby 02/04/17 at 1743, Flush after each use and blood draws. calcium carbonate (TUMS) chew tablet 2 Tab 2 tablet, Oral, EVERY 4 HOURS PRN, GI Upset, Starting on Wed02/03/17 at 1537, Until Ruby 02/04/17 at 1743 diphenhydrAMINE (BENADRYL) capsule 25 mg 25 mg, Oral, AT BEDTIME PRN, Insomnia, Starting on Wed02/03/17 at 1537, Until Ruby 02/04/17 at 1743 2030 ($ Given - Provider: Biju Sofia, CL) famotidine (PEPCID) tablet 20 mg 20 mg, Oral, DAILY PRN, Heartburn, Indigestion, Starting on Wed02/03/17 at 1537, Until Ruby 02/04/17 at 1743 lidocaine (XYLOCAINE MPF) 1 % injection 0.2 mL 0.2 mL, Intradermal, ONCE PRN, IV Fluid Start, 1 dose, Starting on Wed02/03/17 at 1537, Until Ruby 02/04/17 at 1743, May be used locally to anesthetize prior to IV insertion, if patient has NKA to Lidocaine. lidocaine-prilocaine (EMLA) cream Topical, ONCE PRN, IV Fluid Start, 1 dose, Starting on Wed02/03/17 at 1537, Until Ruby 02/04/17 at 1743, May be applied locally to anesthetize prior to IV insertion. ondansetron (disintegrating) (ZOFRAN ODT) tablet 4 mg 4 mg, Oral, EVERY 6 HOURS PRN, Nausea/Vomiting, Starting on Wed02/03/17 at 1537, Until Ruby 02/04/17 at 1743, Allow tablet to dissolve on the tongue polyethylene glycol 3350 (MIRALAX) packet 17 g 17 g, Oral, DAILY PRN, Constipation, Starting on Wed02/03/17 at 1537, Until Ruby 02/04/17 at 1743, Mix in 8 ounces of water, juice, soda, coffee or tea prior to administration simethicone (MYLICON) chew tablet 160 mg 160 mg, Oral, QID PRN (after meals and at bedtime), Gas Pain, Starting on Wed02/03/17 at 1537, Until Ruby 02/04/17 at 1743 Linked Groups Order Group 1: SALINE LOCK, INSERT AND MAINTAIN (CANCELED) Routine, CONTINUOUS, Starting on Wed02/03/17 at 1545, Until Specified, New collection And 0.9% NaCl injection 10 mLJump to med 10 mL, Intracatheter, EVERY 8 HOURS, First dose on Wed02/03/17 at 1615, Until Discontinued And 0.9% NaCl injection 10 mLJump to med 10 mL, Intracatheter, PRN, Other, peripheral line flush, Starting on Wed02/03/17 at 1537, Until Ruby 02/04/17 at 1743, Flush after each use and blood draws. documented in this encounter
--- OUTSIDE RECORDS SUMMARY | 2024-09-18 05:31 | XMS_ITS | Encounter Summary ---
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 administrations Medication Order MAR Action Action Date Dose Rate Site acetaminophen (TYLENOL) tablet 650 mg 650 mg, Oral, ONCE, 1 dose, On Wed01/18/15 at 2245 $ Given 01/18/2015 10:33 PM CDT 650 mg acetaminophen-codeine (TYLENOL #3) 300-30 MG tablet 1 Tab 1 tablet, Oral, ONCE, 1 dose, On Wed01/18/15 at 2245 $ Given 01/18/2015 10:33 PM CDT 1 tablet naproxen sodium (ANAPROX DS) tablet 550 mg 550 mg, Oral, ONCE, 1 dose, On Wed01/19/15 at 0115 $ Given 01/19/2015 12:57 AM CDT 550 mg documented in this encounter Active and Recently Administered Medications Times are shown in CDT. Scheduled Medication Order 01/17/2015 01/18/2015 01/19/2015 acetaminophen (TYLENOL) tablet 650 mg (COMPLETED) 650 mg, Oral, ONCE, 1 dose, On Wed01/18/15 at 2245 2233 ($ Given - Provider: Kellen Meza RN) acetaminophen-codeine (TYLENOL #3) 300-30 MG tablet 1 Tab (COMPLETED) 1 tablet, Oral, ONCE, 1 dose, On Wed01/18/15 at 7600 3361 ($ Given - Provider: Kellen Meza RN) naproxen sodium (ANAPROX DS) tablet 550 mg (COMPLETED) 550 mg, Oral, ONCE, 1 dose, On Wed01/19/15 at 0115 0053 ($ Given - Provider: Kellen Meza RN) documented in this encounter
--- OUTSIDE RECORDS SUMMARY | 2024-09-18 05:31 | XMS_ITS | Encounter Summary ---
Author Organization [facility] Address [address] [place] [address] Care Team Providers Care Supervisor Product Inspection Name Role Phone Unavailable Primary Care Provider Unavailabl e Reason for Visit * Reason Comments Pain Abdominal Breathing Problem Encounter Details Date Type Department Care Team (Latest Contact Info) Description 01/31/2017 1:36 AM CDT - 01/31/2017 4:13 AM CDT Hospital Encounter [facility] [address] [place] [address] Ann Piña MD [address] [place] [address] [address] [address] Discharge Disposition: Home or Self [...] Sign Reading Time Taken Comments Blood Pressure 113/54 01/31/2017 3:32 AM CDT Pulse - - Temperature 37.2 ??C (98.9 ??F) 01/31/2017 2:11 AM CD T Respiratory Rate 18 01/31/2017 2:11 AM CDT Oxygen Saturation 100% 01/31/2017 2:11 AM CDT Inhaled Oxygen Concentration - - Weight 67.4 kg (148 lb 8 oz) 01/31/2017 2:11 AM CDT Height - - Body Mass Index 28.06 01/26/2017 3:25 PM CDT documented in this encounter Functional Status Functional Status Response Date of Assess ment Is person deaf or have serious hearing difficult y? No 01/31/2017 Is person blind or have serious difficulty seein g? No 01/31/2017 Does person have serious dif ficulty walking/climbing stairs? No 01/31/2017 Does person have difficulty dressing/bathing? No 01/31/2017 Does person have difficulty doing errands alone? No 01/31/2017 Cognitive Status Response Date of Assessm ent Does person have difficulty concentrating/remembering/making decisions? No 01/31/2017 documented as of this encounter Discharge Instructions * Discharge Instructions* Anisha Serrano RN - 01/31/2017 4:14 AM CDT UNDELIVERED PATIENT DISCHARGE INSTRUCTIONS CALL YOUR [...] pains, cramps, nausea,or diarrhea. Important Telephone Number: Doctor's Office: [facility] - [phone] documented in this encounter Medications at Time [...] 10/06/2016 02/10/2017 documented as of this encounter H&P Notes * Alejandra Ma MD - 01/31/2017 2:21 AM CDT R1 Obstetric H&P Note 01/31/2017, 4:08 AM CC: Contractions HPI: 21 y.o. at 31w2d gestation by by Last Menstrual Period and confirmatory scan at 10 weeks with an Estimated Date of Delivery: 04/02/17 care: is with centering Patient's is complicated by: Patient Active Problem [...] Pepcid Rx Patient presents with complaints of contractions. Says she needs to push my baby out . Also complaining that the pain is so intense it is taking her breath away. positive Ctx. negative LOF. negative VB. positive FM. Review of Symptoms: Positive for: see HPI Denies: fevers, chills, headache, chest pain, shortness of breath, nausea, vomiting, diarrhea, constipation, dysuria, urinary frequency, changes in vaginal discharge Obstetrical History: OB History Para Term AB Living 1 SAB TAB Ectopic Multiple Live Births # Outcome Date GA Lbr Gigi/2nd Weight Sex Delivery Anes PTL Lv 1 Current Gynecologic History: Abnormal pap smears: No Cervical procedures no STDs: Remote hx of chlamydia. Denies recent history of gonorrhea, chlamydia, trichomonas, herpes, HIV, syphilis Medical History: Past Medical History: Diagnosis Date ??? Chlamydia contact, treated 07/29/2013 reports repeat infection 2014 ??? History of asthma as a child ??? History of sexually transmitted disease She denies history of hypertension, diabetes, asthma or bleeding disorders. Psych History: Depression: yes Anxiety: yes Bipolar disorder: No Schizophrenia: No Suicide attempts: No Abuse: No Surgeries: Past Surgical History: Procedure Laterality Date ??? NEGATIVE SURGICAL HISTORY Current Medications: Prior to Admission medications Medication Sig Start Date End Date Taking? Authorizing Provider metroNIDAZOLE (FLAGYL) 500 MG tablet Take 1 Tab by mouth 2 times daily for 7 days Reasons: Vaginosis caused by Bacteria 01/25/17 02/01/17 oDrothy Enrique APRN-KULWINDER docusate sodium (COLACE) 100 MG capsule Take 1 Cap by mouth once daily Patient not taking: Reported on 01/25/2017 12/23/16 Shelley Calloway APRN-CNM polyethylene glycol 3350 (MIRALAX) powder Take 17 g by mouth once daily as needed for Constipation Patient not taking: Reported on 01/25/2017 12/23/16 Shelley Calloway APRN-CNM famotidine (PEPCID) 20 MG tablet Take 1 Tab by mouth once daily as needed for Heartburn (Indigestion) 11/25/16 Chelsea White APRN-CNM ondansetron (ZOFRAN) 4 MG tablet Take 1 Tab by mouth every 6 hours as needed for Nausea/Vomiting 10/06/16 Allie Martinez MD Vit-Fe Fumarate-FA ( VITAMINS) 28-0.8 MG TABS Take 1 Tab by mouth once daily 10/06/16 Allie Martinez MD Allergies: No Known Allergies Social History: Social [...] breast, ovarian, or uterine cancer Objective: Vitals: 01/31/17 0150 01/31/17 0155 01/31/17 0211 01/31/17 0332 BP: 110/67 113/54 Resp: 18 Temp: 98.9 ??F SpO2: 100% 100% Weight: 148 lb 8 oz (67.4 kg) non-stress test (roman): baseline rate 130, variability: moderate, 10x10 accelerations present (gestationally appropriate), no decelerations present, reassuring, reactive, areas of broken strip but overall reassuring Jeffers: none Physical Exam: General: alert, cooperative, no distress Lungs: clear to auscultation bilaterally Heart: regular rate and rhythm Back: Negative CVA tenderness Abdomen: gravid, soft, nontender, normal bowel sounds Female Genitalia: external genitalia and intoitus normal; vagina and cervix normal by visualization Extremities: normal, non-tender bilaterally. Edema absent Sterile speculum exam: Wet Prep: negative yeast, negative trichomonas, negative clue cells, WBCs negative Cervix: Cervical Exam Dilation (cm): 0 Effacement: 0 Station: -3 Pelvimetry: Diagonal conjugate reached: No Ischial Spines prominent: No Suprapubic arch, narrow: NoPelvic sidewalls divergent: No Gynecoid pelvis: Yes Bedside ultrasound: Deferred Current Lab Review: Hospital Encounter on 01/31/17 URINALYSIS ROUTINE W/REFLEX TO CULTURE Result Value Ref Range Color UA Yellow Straw, Yellow, Dark Yellow Clarity UA Slt Cloudy Specific [place] UA 1.020 1.005 - 1.030 pH UA 7.5 5.0 - 8.0 pH Protein UA Trace (Abnormal) Negative Blood UA 1+ (Abnormal) Negative Leukocyte UA Negative Negative Nitrite UA Negative Negative Glucose UA Negative Negative Ketone UA Trace (Abnormal) Negative Bili UA Negative Negative Urobilinogen UA 0.2 0.1 - 1.0 EU/dL Reflex Status Culture not indicated URINALYSIS MICROSCOPIC ONLY W/REFLEX CULTURE Result Value Ref Range RBC UA 5-10 (Abnormal) 0-2, 2-5 # /hpf WBC UA 0-2 0-2, 2-5 # /hpf Bacteria UA 3+ (Abnormal) None Seen Epithelial Cell UA 2-5 0-2, 2-5 # /hpf labs Reviewed Blood type: A+ Rubella: immune Hep B surface antigen:non-reactive RPR: non-reactive HIV:Negative Assessment/Plan: 21 y.o. @ 31w2d 1. Rule out PTL 1. Pt presents for painful contractions. [place] like she needed to push 2. Cervix CL/th/high 3. SSE neg for pathogens 4. UA: neg, culture not indicated. Had some blood in UA, but denies hx of kidney stones or recent bleeding, not concerning at this time. 5. Pt's pain alleviated when reported that her cervix was closed as well as with Tylenol 2. SOB 1. Pt sating 100% on RA 2. Lungs CABL 3. Pt no longer feeling SOB after exam found her cervix to be closed 3. IUGR 1. US on 01/25: 1320 gm, <10th%ile with normal fluid and dopplers 2. Cont outpt management 4. Mood issues 1. Plans to see Dr. Roca 2. Mood stable 3. Close monitoring outpt 5. well being: reassuring 6. PNLA+/I/-/-, NR 7. Follow up: Centering 8. Dispo: Home with precuations Discussed with Dr. Rivas. Will discuss with Dr. Ma in the am. Yolette Peters MD 01/31/2017 4:08 AM Findings and plan discussed with resident. documented in this encounter Plan of Treatment Upcoming Encounters Date Type Department Care Team (Late st Contact Info) Description 09/19/2024 8:15 AM LATHE SET UP PERSON Hospital Encounter [facility] [address] [place], [place] [id number] documented as of this encounter Procedures Procedure Name Priority Date/Time Associated Diagnosis Comments URINE MICROSCOPIC ONLY REFLEX TO CULTURE Routine 01/31/2017 2:36 AM CDT Encounter for supervision of normal first in first trimester (HCC) URINALYSIS REFLEX MICROSCOPIC REFLEX CULTURE STAT 01/31/2017 2:36 AM CDT Encounter for supervision of normal first in first trimester (HCC) documented in this encounter Results * (ABNORMAL) URINALYSIS MICROSCOPIC ONLY W/REFLEX CULTURE (01/31/2017 2:36 AM CDT) RBC UA 5-10(A) 0-2, 2-5 # /hpf 01/31/2017 3:11 AM CDT [facility] WBC UA 0-2 0-2, 2-5 # /hpf 01/31/2017 3:11 AM CDT [facility] Bacteria UA 3+(A) None Seen 01/31/2017 3:11 AM CDT [facility] Epithelial Cell UA 2-5 0-2, 2-5 # /hpf 01/31/2017 3:11 AM CDT [facility] Urine URINE SPECIMEN OBTAINED BY CLEAN CATCH PROCEDURE / Unknown Collection / Unknown 01/31/2017 2:36 AM CDT 01/31/2017 2:39 AM CDT Yolette Peters MD LAB - URINALYSIS OR DERABLES [facility] [address] [place] [address] * (ABNORMAL) URINALYSIS ROUTINE W/REFLEX TO CULTURE (01/31/2017 2:36 AM CDT) Color UA Yellow Straw, Yellow, Dark Yellow 01/31/2017 2:46 AM CDT [facility] Clarity UA Slt Cloudy 01/31/2017 2:46 AM CDT [facility] Specific [place] UA 1.020 1.005 - 1.030 01/31/2017 2:46 AM CDT [facility] pH UA 7.5 5.0 - 8.0 pH 01/31/2017 2:46 AM CDT [facility] Protein UA Trace(A) Negative 01/31/2017 2:46 AM CDT [facility] Blood UA 1+(A) Negative 01/31/2017 2:46 AM CDT [facility] Leukocyte UA Negative Negative 01/31/2017 2:46 AM CDT [facility] Nitrite UA Negative Negative 01/31/2017 2:46 AM CDT [facility] Glucose UA Negative Negative 01/31/2017 2:46 AM CDT [facility] Ketone UA Trace(A) Negative 01/31/2017 2:46 AM CDT [facility] Bilirubin UA Negative Negative 01/31/2017 2:46 AM CDT [facility] Urobilinogen UA 0.2 0.1 - 1.0 EU/dL 01/31/2017 2:46 AM CDT [facility] Reflex Status Culture not indicated 01/31/2017 2:46 AM CDT [facility] Urine URINE SPECIMEN OBTAINED BY CLEAN CATCH PROCEDURE / Unknown Collection / Unknown 01/31/2017 2:36 AM CDT 01/31/2017 2:39 AM CDT Yolette Peters MD LAB - URINALYSIS OR DERABLES Performing Organization Address City/State/[facility] Co de Phone Number [facility] [address] [place] [phone] documented in this encounter Visit Diagnoses Diagnosis Encounter for supervision of normal first in first trimester ([facility])- Primary Supervision of normal first Encounter for maternal care for suspected poor growth in roman in third trimester ([facility])- Primary Aversion to food: limiting protein intake Feeding difficulties and mismanagement Abnormal ultrasound: dopplers elevated S/d ratio Abnormal findings on screening High-risk in third trimester ([facility]) Previous baby with growth restriction Encounter for screening ([facility]) documented in this encounter Administered Medications Inactive Administered Medications - up to 3 most recent administrations Medication Order MAR Action Action Date Dose Rate Site acetaminophen (TYLENOL) tablet 1,000 mg 1,000 mg, Oral, EVERY 4 HOURS PRN, Mild Pain, Starting on 01/31/17 at 0202, Until 01/31/17 at 0537 $ Given 01/31/2017 2:07 AM CDT 1,000 mg documented in this encounter Active and Recently Administered Medications Times are shown in CDT. PRN Medication Order 01/29/2017 01/30/2017 01/31/2017 acetaminophen (TYLENOL) tablet 1,000 mg 1,000 mg, Oral, EVERY 4 HOURS PRN, Mild Pain, Starting on 01/31/17 at 0202, Until 01/31/17 at 0537 0207 ($ Given - Prov ider: Shelley Rangel RN) documented in this encounter
--- OUTSIDE RECORDS SUMMARY | 2024-09-18 05:31 | XMS_ITS | Encounter Summary ---
Author Organization [facility] Address [address] [facility] [place] [address] Care Team Providers Care Manager Pathology Name Role Phone Unavailable Primary Care Provider Unavailabl e Reason for Visit * Reason Comments Ultrasound Encounter Details Date Type Department Care Team (Latest Contact Info) Description 02/03/2017 10:11 AM CDT - 02/03/2017 3:18 PM CDT Hospital Encounter [facility] MATERNAL/ EVALUATION UNIT [address] [place] [address] Gibran Quiroz MD [address] [facility] [address] [place] [address] Discharge Disposition: Home or Self Care Social [...] 10/06/2016 02/10/2017 documented as of this encounter Plan of Treatment Upcoming Encounters Date Type Department Care Team (Late st Contact Info) Description 09/19/2024 8:15 AM [facility] Hospital Encounter [facility] Maternal & Care [address] [place], [place] [address] documented as of this encounter Procedures Procedure Name Priority Date/Time Associated Diagnosis Comments BIOPHYSICAL PROFILE W NST Routine 02/03/2017 10:24 AM CDT Uterine size date discrepancy , third trimester (HCC) documented in this encounter Results * [facility] BIOPHYSICAL PROFILE W NST (02/03/2017 10:24 AM CDT) Anatomical Region Laterality Modality Other 02/03/2017 10:2 4 AM CDT Narrative 02/04/2017 9:35 AM CDT ?[facility] ? - [place] ? Maternal & Care Center ?PHONE: ??FAX: Pat. Name: ?MARNIE JONES Pat. No: ?[id number] Study Date: ?? 02/03/2017 ??10:24am , Age: ? 1995, 21 Pregnancies: ?? 1, Para 0 Height: ? 61 in Weight: ? 140 lb LMP: ?06/26/2016 GA by LMP: ?31w5d GA by 1st: ?31w5d GA Selected: ??31w5d (From First S) WILLIE: ?04/02/2017 Referring MD: Eliazar, , [facility] Assistant Customer Service Manager: ??Ortiz Gonzalez, МАРИНА CPT4: ? 67685, 30828, 13480 BMI: ?26.45 Hist/Ind: ? S<D Heart Rate: 153 bpm Amniotic Fluid Index: 12.1cm (08.7-24.1) Q1: 1.6cm ??Q2: 2.1cm ??Q3: 5.3cm ??Q4: 3.2cm ?? Biophysical Profile: 06/29 Breathin ?? Tone: 2 ?? NST: 2 Movement: ??2 ?? AFV: ??2 DOPPLER Umbilical - Mid Cord S/D ??3.17(1.86 - 3.90) ? PI ?? 1.08 (0.67 - 1.26) ? CLINICAL SUMMARY Study Number: 4 A roman fetus is identified in cephalic presentation. ??The placenta is anterior. ??The amniotic fluid volume is within normal limits. DOPPLER STUDIES: ?? The umbilical artery Doppler S/D ratio is 3.17 , which is normal for gestational age. ?? The umbilical PI ratio is 1.08, which is normal for gestational age. TESTING The Biophysical profile score is 10. IMPRESSION: ?? Single, live vertex IUP at 31w5d Normal amniotic fluid volume. Placental location: ??Anterior Reassuring testing RECOMMEND: ?? Follow up ultrasound weekly for BPP/Dopplers and NST's. Repeat growth in 1-2 weeks. Thank you for allowing us the opportunity to care for your patient. Omar Nina MD <Electronic Signature> ??02/04/2017 09:31am Dorothy Enrique APRN-KULWINDER [facility] ORDERABLES documented in this encounter Visit Diagnoses Diagnosis Uterine size date discrepancy , third trimester (HCC) IUGR (intrauterine growth restriction) affecting care of mother, third trimester, not applicable or unspecified fetus (HCC) Encounter for maternal care for suspected poor growth in roman in third trimester (HCC)- Primary Aversion to food: limiting protein intake Feeding difficulties and mismanagement Abnormal ultrasound: dopplers elevated S/d ratio Abnormal findings on screening High-risk in third trimester (HCC) Previous baby with growth restriction Encounter for screening ([facility]) documented in this encounter
--- OUTSIDE RECORDS SUMMARY | 2024-09-18 05:31 | XMS_ITS | Encounter Summary ---
Author Organization [facility] Address [facility] [facility] [place] [address] Care Team Providers Care Whizzer Operator Name Role Phone Unavailable Primary Care Provider Unavailabl e Reason for Visit * Reason Comments Routine Visit Encounter Details Date Type Department Care Team (Latest Contact Info) Description 12/23/2016 9:00 AM CDT - 12/23/2016 11:59 PM CDT Hospital Encounter [facility] MATERNAL/ EVALUATION UNIT [address] [place] [address] Chelsea [facility] [address] [place] [address] Discharge Disposition: Home or Self Care Social [...] Sign Reading Time Taken Comments Blood Pressure 123/75 12/23/2016 9:53 AM CDT Pulse 106 12/23/2016 9:53 AM CDT Temperature - - Respiratory Rate - - Oxygen Saturation - - Inhaled Oxygen Concentration - - Weight 66 kg (145 lb 9.6 oz) 12/23/2016 9:53 AM CDT Height - - Body Mass Index 27.51 12/13/2016 3:41 PM CDT documented in this encounter Medications [...] of this encounter Progress Notes * Marychuy Nj LCSW - 12/23/2016 3:20 PM CDT ENRIKE spoke with pt, who is asking for independent living facilities for women. ENRIKE providedpt with contact numbers for the following maternity homes: [facility], [facility], [facility]. Explained that SW is not aware of any independent living facilities. Pt is also asking about employment resources, and SW suggests that it is very likely that the maternity home will offer various supportive services, including social work and/or case management, who can assistwith employment resources. Pt denies additional questions or concerns at this time. Marychuy Nj LCSW [employer] [phone] * Dorothy Randall RN - 12/23/2016 1:38 PM CDT Patient and partner Mary participated in Centering session 2 today with discussion around: -Body changes in -Common discomforts of -Taking care of your back -Healthy teeth and gums -Goals, review Centering * Shelley Calloway APRN-CNM - 12/23/2016 11:23 AM CDT [facility]AG[facility] Centering: Elli 12/23/2016 Subjective: Marnie Jones 20 y.o. 25w5d here today for routine follow up appointment in Centering. Upset that she did not get 3D print out of ultrasound and wants another US for a picture. Denies contx, VB, LOF, and reports good FM. Denies SALINAS, vision changes, RUQ pain. Having some constipation. Here with her partner John. Her is complicated by: Patient Active Problem List Diagnosis Date Noted ??? Decreased movement Priority: Not Prioritized ??? Encounter for supervision of normal first in first trimester 09/04/2016 First PNV 09/04/16 Interested in Centering. PNL/CHL/GC/U Cx today EPDS = 5 Would like SS and CF FOB involved Anatomy: isolated EIF PNL collection date and results: 09/04/16 A+/RI/ND/-/- GCT: 24-28 weeks (4/5) Tdap: offer at 28 wks HIV: NR [...] for the past 6 hrs: Pulse BP 12/23/16 0953 106 123/75 No results found for this visit on 12/23/16. Overall: Alert and oriented x3, in no apparent signs of distress FH: 25 FHR: 150s Extremities: WNL, no edema, normal size and shape bilaterally, no calf tenderness Assessment & Plan: 1. Centering Session 2 2. Supervision of 1. Dating by LMP c/w 10 wk US 2. A+/RI/NR/ND/HIV- 3. GC/CT neg 4. +E Coli UTI, s/p neg CHARANJIT 5. Declined flu vaccine 6. US: EIF on anatomy, all other WNL, pt aware. Declined genetics. Discussed no indication for US at this time. 7. GCT next visit 3. Constipation 1. Increase fiber, hydration 2. Colace daily and Miralax PRN 4. Depression/Anxiety 1. EPDS 5 2. Will have interval visit with Dr. Roca 3. Mood stable today, talked about healthy coping mechanisms 4. Close monitoring 5. Nurses for Newborns consult next visit Return to clinic as scheduled for Centering visit. movement/kick counts reviewed, as well as s/s of pre-eclampsia OBIE Almeida 12/23/2016 11:23 AM documented in this encounter Plan of Treatment Upcoming Encounters Date Type Department Care Team (Late st Contact Info) Description 09/19/2024 8:15 AM STE[employer]ER T[employer]ER Hospital Encounter [facility] Maternal & Care [address] [place], [place] [phone] documented as of this encounter Visit Diagnoses Diagnosis Encounter for supervision of normal first in first trimester (HCC)- Primary Supervision of normal first Encounter for supervision of normal first in second trimester (HCC) Supervision of normal first Encounter for maternal care for suspected poor growth in roman in third trimester (HCC)- Primary Aversion to food: limiting protein intake Feeding difficulties and mismanagement Abnormal ultrasound: dopplers elevated S/d ratio Abnormal findings on screening High-risk in third trimester (HCC) Previous baby with growth restriction Encounter for screening ([facility]) documented in this encounter
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
--- OUTSIDE RECORDS SUMMARY | 2024-09-18 05:31 | XMS_ITS | Encounter Summary ---
Author Organization [facility] Address [facility] [place] [address] Care Team Providers Care Coding Quality Analyst Name Role Phone Unavailable Primary Care Provider Unavailabl e Reason for Visit * Reason Comments Routine Visit * Evaluate & Treat (Routine) - Closed Specialty Diagnoses / Procedures Referred By Christina diana Referred To Contact Maternal Medicine Diagnoses Gastro-esophageal reflux disease without esophagitis Supervision of other high risk pregnancies, unspecified trimester (HCC) Procedures NV FULL ROUT OBSTE CARE,VAGINAL Abram Martin MD [address] [place] [address] [facility] [address] [place] [address] Referral ID Status Reason Start Date Expiration Date Visits Re quested Visits Authorized [id number] Closed 01/18/2017 07/17/2017 18 18 Encounter Details Date Type Department Care Team (Latest Contact Info) Description 01/25/2017 10:07 AM CDT - 01/25/2017 10:44 AM CDT Hospital Encounter [facility] MATERNAL/ EVALUATION UNIT [address] [place] [address] Reyna Santo, ESTIMATING MANAGER-LADLE BUILDER [address] [place] [address] Discharge Disposition: Home or Self Care Social [...] Sign Reading Time Taken Comments Blood Pressure 112/73 01/25/2017 10:20 AM CDT Pulse 96 01/25/2017 10:20 AM CDT Temperature - - Respiratory Rate 20 01/25/2017 10:20 AM CDT Oxygen Saturation - - Inhaled Oxygen Concentration - - Weight 65.8 kg (145 lb) 01/25/2017 10:20 AM CDT Height 154.9 cm (5' 1 ) 01/25/2017 10:20 AM CDT Body Mass Index 27.4 01/25/2017 10:20 AM CDT documented in this encounter Medications at [...] this encounter Progress Notes * Dorothy Enrique, ESTIMATING MANAGER-LADLE BUILDER - 01/25/2017 10:56 AM CDT OPTICAL DISPENSER Low Risk Return OB 01/25/2017 Subjective: Marnie Jones 21 y.o. 30w3d here today for routine follow up appointment. Today she notes no complaints. Denies contx, VB, LOF, and reports good FM. She complains today of whitevaginal discharge that has been going on for 4-5 weeks. She states the discharge has gotten worse and complains of an odor now. Denies SALINAS, vision changes, RUQ pain. She states she is still having constipation but she was unaware of Colace and Miralax at the pharmacy. She will pick them up today. She declines Tdap today. Her is complicated by: Patient Active Problem [...] the past 6 hrs: Pulse Resp BP 01/25/17 1020 96 20 112/73 Hospital Encounter on 01/25/17 GLUCOSE PROTEIN KETONE URINE - POINT OF CAR Result Value Ref Range Glucose UA neg Negative Protein UA trace Negative Ketone UA neg Negative QC Verified Yes Yes Overall: Alert and oriented x3, in no apparent signs of distress Abdomen: soft, NT FH: 25 FHR: 150 Extremities: WNL, no edema, normal size and shape bilaterally, no calf tenderness Wet mount: +clue, neg hyphae, neg trich Assessment & Plan: 21 y.o. @ 30w3d 1. Supervision of 1. Dating by LMP c/w 10 wk US 2. A+/RI/NR/ND/HIV- 3. GC/CT neg 4. +E Coli UTI, s/p neg CHARANJIT 5. Declined flu vaccine 6. US: EIF on anatomy, all other WNL 7. GCT/CBC/RPR today 8. Declines Tdap 9. GBS at 36 weeks 10. S<D: FH 25 today, Growth U/S added on-preliminary AC<5%, dopplers WNL 11. CC: vaginal discharge and odor-Wet mount: +clue, neg hyphae, neg trich. Flagyl 500 mg BID x 7 days sent to pharmacy on file 2. S<D 1. Growth today-preliminary AC <5%, dopplers WNL 2. Weekly NST/BPP/dopplers-ordered today, pt aware 3. Constipation 1. Increase fiber, hydration 2. 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 Depression/Anxiety 1. EPDS 5 2. Will have interval visit with Dr. Roca 3. Mood stable today 4. Close monitoring 5. Nurses for Newborns referral placed today Reviewed kick counts (BID), as well as PTL and preeclampsia warnings. RTC weekly for testing, 2 weeks in centering D/W Dr[facility] Hall-[facility] KARLY Llanos 01/25/2017 10:56 AM documented in this encounter Plan of Treatment Upcoming Encounters Date Type Department Care Team (Late st Contact Info) Description 09/19/2024 8:15 AM BARREL DRUM CUTTER Hospital Encounter [facility] Maternal & Care [address] [place], [place] [phone] documented as of this encounter Procedures Procedure Name Priority Date/Time Associated Diagnosis Comments SONOGRAM - COMPLETE Routine 01/25/2017 1 1:31 AM CDT GLUCOSE PROTEIN KETONE URINE - POINT OF CAR Routine 01/25/2017 10:29 AM CDT Encounter for supervision of normal first in first trimester (HCC) RPR Routine 01/25/2017 10:11 AM CDT Encounter for supervision of normal first in first trimester (HCC) CBC W AUTO DIFFERENTIAL Routine 01/25/2017 10:11 AM CDT Encounter for supervision of normal first in first trimester (HCC) GLUCOSE CHALLENGE Routine 01/25/2017 10: 11 AM CDT Encounter for supervision of normal first in first trimester (HCC) documented in this encounter Results * SONOGRAM - COMPLETE (01/25/2017 11:31 AM CDT) Anatomical Region Laterality Modality Other 01/25/2017 11:3 1 AM CDT Narrative 01/25/2017 12:18 PM CDT ? [facility] ? Maternal & Care Center ?PHONE: ??FAX: Pat. Name: ?MARNIE JONES Pat. No: ?[id number] Study Date: ?? 01/25/2017 ??11:31am , Age: ? 1995, 21 Pregnancies: ?? 1 Height: ? 61 in Weight: ? 140 lb LMP: ?06/26/2016 GA by LMP: ?30w3d GA by 1st: ?30w3d GA by US: ? 29w2d GA Selected: ??30w3d (LMP) WILLIE: ?04/02/2017 Referring MD: Eliazar, , [facility] Supervisor Real Estate Office: ??Jacki Ruiz RDMS CPT4: ? 70480, 64[address], [address] Hist/Ind: ? S<D ?Growth MEASUREMENTS & AGE ? GROWTH EVALUATION Measurement ??GA ? Range ? Srce %for GA Ratios ----- ---- ------- BPD ??7.5 cm 30w0d (47x7k-85x8c) Hadl BPD 41% FL/BPD 0.77 (0.71 - 0.87) HC ??26.8 cm 29w1d (69s9p-82r5f) Hadl HC ??23% FL/AC ??0.24 (0.20 - 0.24* AC ??23.8 cm 28w1d (72y7h-33r3u) Hadl AC ??<05 HC/AC ??1.12 (0.97 - 1.16) FL ?? 5.8 cm 30w1d (44z5t-58i7w) Hadl FL ??46% CI ? 0.78 (0.70 - 0.86) HL ?? 5.2 cm 30w3d (42l3j-25a4i) Marbin HL ??50% GA for sonogram 29w2d (28e5u-18o0t) ?? Weight Estimate: based on (BPD,HC,AC,FL) Avg ?Weight: 1320 gm (4948-2647) Hadlo ? : 2lbs, 14oz ? Normal: 1636 gm (1358- 1914) Hadlo ? Wt% ? <10 for 30w3d Heart Rate: 145 bpm Amniotic Fluid Index: 11.7cm (08.9-23.6) Q1: 2.7cm ??Q2: 3.9cm ??Q3: 2.6cm ??Q4: 2.5cm ?? Biophysical Profile: 04/27 Breathin ?? Tone: 2 ?? Movement: ??2 ?? AFV: ??2 DOPPLER Umbilical - Mid Cord S/D ??3.23(1.94 - 4.05) ? PI ?? 1.09 (0.69 - 1.28) ? CLINICAL SUMMARY Study Number: ??3 A roman fetus is identified in cephalic presentation. ??The measurements today are consistent with SGA. ??The WILLIE selected is based on her LMP and prior ultrasound examination. ??The amniotic fluid volume is normal. ??The placenta is anterior. ??No major malformations are seen. ??The patient was advised that ultrasound does not allow detection of all structural or chromosomal abnormalities. ?? TESTING: The biophysical profile score is 8/8 DOPPLER STUDIES: ?? The umbilical artery Doppler S/D ratio is 3.23, which is normal for gestational age The umbilical artery PI is 1.09, which is normal for gestational age IMPRESSION: ?? Single, live IUP at 30w3d SGA growth Normal AFV Reassuring BPP and Dopplers No malformations seen within the limits of ultrasound RECOMMEND: ?? Follow up ultrasound weekly for BPP/Dopplers Follow up for growth in 2-3 weeks Thank you for allowing us the opportunity to care for your patient Abram Hall MD <Electronic Signature> ??01/25/2017 12:17pm Dorothy Enrique APRN-LADLE BUILDER MFM ORDERABLES * GLUCOSE PROTEIN KETONE URINE - POINT OF CAR (01/25/2017 10:29 AM CDT) Pathologist [facility] Glucose UA neg Negative [facility] POCT TESTING Protein UA trace Negative [facility] POCT TESTING Ketone UA neg Negative [facility] POCT TESTING QC Verified Yes Yes [facility] POC T TESTING Urine URINE / Unknown 01/25/2017 1 0:29 AM CDT Dorothy Enrique APRN-LADLE BUILDER LAB - POINT OF CARE ORDERABLES Performing Organization Address City/[facility]/ZIP Co de Phone Number HC POCT TESTING [address] [place] [address] * RPR (01/25/2017 10:11 AM CDT) [facility] RPR Non Reactive Non Reactive 01/26/2017 12:[address] [facility] Blood BLOOD SPECIMEN / Unknown Venipuncture / Unknown 01/25/2017 10:11 AM CDT 01/25/2017 11:28 AM CDT Shelley Calloway APRN-CNM LAB - CHEMISTRY OR DERABLES Performing Organization Address City/[facility]/ZIP Co de Phone Number [facility] [address] [place] [address] * (ABNORMAL) CBC W AUTO DIFFERENTIAL (01/25/2017 10:11 AM CDT) Pathologist [facility] WBC 12.8(H) 4.4 - 10.7 x10E9/L 01/25/2017 11:[address] [facility] WBC Corrected x10E9/L 01/25/2017 11:33 AM [facility] RBC 3.43(L) 3.80 - 5.20 x10E12/L 01/25/2017 11:33 AM [facility] Hemoglobin 10.2(L) 12.0 - 15.6 gm/dL 01/25/2017 11:33 AM [facility] Hematocrit 30.0(L) 35.9 - 45.5 % 01/25/2017 11:33 AM [facility] MCV 87.5 80.7 - 98.3 fl 01/25/2017 11:33 AM [facility] MCH 29.7 26.7 - 34.0 pg 01/25/2017 11:33 AM [facility] MCHC 34.0 30.8 - 35.9 gm/dL 01/25/2017 11:33 AM [facility] Platelet Count 262 153 - 416 x10E9/L 01/25/2017 11:33 AM [facility] RDW-CV 13.1 12.1 - 14.9 % 01/25/2017 11:33 AM [facility] MPV 10.3 9.4 - 12.9 fl 01/25/2017 11:33 AM [facility] Neutrophils % 77.1(H) 44.0 - 73.0 % 01/25/2017 11:33 AM [facility] Lymphocytes % 13.5(L) 20.0 - 43.0 % 01/25/2017 11:33 AM [facility] Monocytes % 5.6 5.0 - 13.0 % 01/25/2017 11:33 AM [facility] Eosinophils % 1.2 0.0 - 6.0 % 01/25/2017 11:33 AM [facility] Basophils % 0.2 0.0 - 2.0 % 01/25/2017 11:33 AM [facility] Immature Granulocytes 2.4(H) 0 - 1 % 01/25/2017 11:33 AM [facility] Neutrophil Absolute 9.85(H) 2.01 - 7.14 x10E9/L 01/25/2017 11:33 AM [facility] Lymphocytes Absolute 1.72 1.07 - 3.94 x10E9/L 01/25/2017 11:[address] [facility] Monocytes Absolute 0.71 0.26 - 1.07 x10E9/L 01/25/2017 11:[address] [facility] Eosinophils Absolute 0.15 0 - 0.47 x10E9/L 01/25/2017 11:[address] [facility] Basophils Absolute 0.03 0 - 0.08 x10E9/L 01/25/2017 11:[address] [facility] Immature Granulocytes Absolute 0.31(H) 0.00 - 0.06 x10E9/L 01/25/2017 11:[address] [facility] nRBC Auto 0 /100 WBC 01/25/2017 11:[address] [facility] Blood BLOOD SPECIMEN / Unknown Venipuncture / Unknown 01/25/2017 10:11 AM CDT 01/25/2017 11:28 AM CDT [facility]ley [facility] - HEMATOLOGY O RDERABLES Performing Organization Address [facility] Co de Phone Number [place] [phone] * GLUCOSE CHALLENGE (01/25/2017 10:11 AM CDT) [facility] Glucose Challenge 110 64 - 140 mg/dL 01/25/2017 11:[address] [facility] Glucose Challenge Time 1 hr 01/25/2017 11:[address] [facility] Blood BLOOD SPECIMEN / Unknown Venipuncture / Unknown 01/25/2017 10:11 AM CDT 01/25/2017 11:28 AM CDT Shelley WHITING LAB - CHEMISTRY OR DERABLES Performing Organization Address [facility] [place] [address] documented in this encounter Visit Diagnoses Diagnosis Encounter for supervision of normal first in first trimester ([facility])- Primary Supervision of normal first Gastroesophageal reflux disease without esophagitis Esophageal reflux Uterine size date discrepancy , third trimester ([facility]) Vaginal discharge in , third trimester ([facility]) Constipation in , third trimester ([facility]) Encounter for maternal care for suspected poor growth in roman in third trimester ([facility])- Primary Aversion to food: limiting protein intake Feeding difficulties and mismanagement Abnormal ultrasound: dopplers elevated S/d ratio Abnormal findings on screening High-risk in third trimester ([facility]) Previous baby with growth restriction Encounter for screening ([facility]) documented in this encounter
--- OUTSIDE RECORDS SUMMARY | 2024-09-18 05:31 | XMS_ITS | Encounter Summary ---
Author Organization [facility] Address [address] [facility] [place] [address] Care Team Providers Care Physical Therapy Manager Name Role Phone None, Pcp Primary Care Provider Unavailabl e Reason for Visit * Reason Comments Female Genitourinary Encounter Details Date Type Department Care Team ([facility] Contact Info) Description 11/10/2013 3:08 AM CORRECTION OFFICER REFORMATORY - 11/10/2013 3:15 AM [facility] Emergency ER at [address] [address] Discharge Disposition: ED Dismiss - Never Arrived Social History Tobacco Use Types Packs/Day Years [...] 08/21/2013 01/18/2015 documented as of this encounter Plan of Treatment Upcoming Encounters Date Type Department Care Team ([facility] Contact Info) Description 09/19/2024 8:15 AM CORRECTION OFFICER REFORMATORY Hospital Encounter [facility] Maternal & Care [address] [place] [address] documented as of this encounter Visit Diagnoses Not on filedocumented in this encounter Care Teams Physical Therapy Manager Relationship Specialty Start Date End Date None, Pcp [place] [address] PCP - General Nurse Practitioner 12/04/12 documented as of this encounter
--- OUTSIDE RECORDS SUMMARY | 2024-09-18 05:31 | XMS_ITS | Encounter Summary ---
Author Organization [facility] Address [facility] [place] [address] Care Team Providers Care Staff Climate Scientist Name Role Phone Unavailable Primary Care Provider Unavailabl e Reason for Visit * Reason Comments Routine Visit Encounter Details Date Type Department Care Team (Latest Contact Info) Description 11/25/2016 1:00 PM PELT SHEARER - 11/25/2016 11:59 PM PELT SHEARER Hospital Encounter [facility] MATERNAL/ EVALUATION UNIT [address] [facility] [address] [place] [address] Chelsea White [facility] [address] [place] [address] Discharge Disposition: Home or Self Care Social [...] Sign Reading Time Taken Comments Blood Pressure 124/78 11/25/2016 1:09 PM PELT SHEARER Pulse 100 11/25/2016 1:09 PM PELT SHEARER Temperature - - Respiratory Rate 18 11/25/2016 1:08 PM PELT SHEARER Oxygen Saturation - - Inhaled Oxygen Concentration - - Weight 65.1 kg (143 lb 8 oz) 11/25/2016 1:09 PM PELT SHEARER Height - - Body Mass Index 27.11 10/06/2016 12:15 PM PELT SHEARER documented in this encounter Medications at Time [...] of this encounter Progress Notes * Dorothy Randall, RN - 11/25/2016 4:54 PM CST Pt participated in CenteringPregnancy session 1 today with discussion around -Centering group expectations, guidelines, and confidentiality - testing -Nutrition -Size your servings -Food diary -Health lifestyle choices -Goals SHEARER * Chelsea White APRN-RUBIO - 11/25/2016 4:35 PM CST RUBIO Centering: Yoselin White CNM 11/25/2016 Subjective: Marnie Jones 20 y.o. 21w5d here today for routine follow up appointment in Centering, Group Z, Session 1. Today she notes that she is having trouble with GERD since she has runout of pepcid. Occ N/V, still helped with zofran. Denies contx, VB, LOF, and reports good FM. Denies SALINAS, vision changes, RUQ pain. Her is complicated by: Patient Active Problem List Diagnosis Date Noted ??? Encounter for supervision of normal first in first trimester 09/04/2016 First PNV 09/04/16 Dating by LMP c/w 10 wk US Interested in Centering. PNL/CHL/GC/U Cx today Pap not indicated EPDS = 5 Would like SS and CF Declines FLU Planning breast and condoms. FOB involved Anatomy: isolated EIF ??? Gastroesophageal reflux disease without esophagitis 09/04/2016 Has Pepcid Rx Objective: Patient Vitals for the past 6 hrs: Pulse Resp BP 11/25/16 1309 100 - 124/78 11/25/16 1308 (!) 128 18 124/78 No results found for this visit on 11/25/16. Overall: Alert and oriented x3, in no apparent signs of distress FH: 1 cm above U FHR: 140's per doppler Extremities: WNL, no edema, normal size and shape bilaterally, no calf tenderness Assessment & Plan: 1. Centering, Group Z, Session 1. Oriented to Centering and group process. Discussed healthy lifestyle goals during including nutrition, exercise, dental care (letter given). 2. Supervision of PNL reviewed, see above. GCT: 24-28 weeks Tdap: offer at 28 wks HIV: neg GBS: 35 wga Dating: L=10 wk US H/H/Plt: 12/329 Hgb Elec: wnl UDS: ??na Genetic screening or testing: declined Pap: na Gc/Chl:neg/neg UCx: treated initially, CHARANJIT neg Breast/Formula: Family Plannin. GERD: refilled Rx for pepcid. Instructions given to minimize symptoms. 4. Plan f/u in 4 wks. Return to clinic as scheduled for Centering visit. movement/kick counts reviewed, as well as s/s of OBIE Kulkarni 11/25/2016 4:35 PM SHEARER documented in this encounter Plan of Treatment Upcoming Encounters Date Type Department Care Team (Late st Contact Info) Description 09/19/2024 8:15 AM PELT SHEARER Hospital Encounter [facility] Maternal & Care [address] [place] [id number] documented as of this encounter Visit Diagnoses Diagnosis Encounter for supervision of normal first in first trimester ([facility]) Supervision of normal first Encounter for maternal care for suspected poor growth in roman in third trimester ([facility])- Primary Aversion to food: limiting protein intake Feeding difficulties and mismanagement Abnormal ultrasound: dopplers elevated S/d ratio Abnormal findings on screening High-risk in third trimester (HCC) Previous baby with growth restriction Encounter for screening ([facility]) documented in this encounter
--- OUTSIDE RECORDS SUMMARY | 2024-09-18 05:31 | XMS_ITS | Encounter Summary ---
Author Organization [facility] Address [facility] [address] Care Team Providers Care Radio Interference Trouble Shooter Name Role Phone Unavailable Primary Care Provider Unavailabl e Reason for Visit * Reason Comments Routine Visit * Evaluate & Treat (Routine) - Closed Specialty Diagnoses / Procedures Referred By Christina diana Referred To Contact Maternal Medicine Diagnoses Encounter for screening of mother Procedures AK FULL ROUT OBSTE CARE,VAGINAL DELAbram Thomson MD [address] [place] [phone] [facility] Med [address] [place] [address] Referral ID Status Reason Start Date Expiration Date Visits Re quested Visits Authorized [id number] Closed 09/11/2016 06/03/2017 20 20 Encounter Details Date Type Department Care Team (Latest Contact Info) Description 10/06/2016 11:49 AM MARKETING SALES CONSULTANT - 10/06/2016 11:59 PM [facility] Hospital Encounter [facility] MATERNAL/ EVALUATION UNIT [address] [place] [address] Gibran Quiroz MD [address] [facility] [address] [place] [address] Discharge Disposition: Home or Self Care Social [...] Reading Time Taken Comments Blood Pressure 110/71 10/06/2016 12:15 PM MARKETING SALES CONSULTANT Pulse 94 10/06/2016 12:15 PM MARKETING SALES CONSULTANT Temperature - - Respiratory Rate 18 10/06/2016 12:15 PM MARKETING SALES CONSULTANT Oxygen Saturation - - Inhaled Oxygen Concentration - - Weight 64.4 kg (142 lb) 10/06/2016 12:15 PM MARKETING SALES CONSULTANT Height 154.9 cm (5' 1 ) 10/06/2016 12:15 PM MARKETING SALES CONSULTANT Body Mass Index 26.83 10/06/2016 12:15 PM MARKETING SALES CONSULTANT documented in this encounter Medications at Time of Discharge Medication Sig Dispensed Refills Start Date End Date famotidine (PEPCID) 20 MG tablet Take 1 Tab by mouth once daily as needed for Heartburn (Indigestion) 30 Tab 08/18/2016 11/25/2016 ondansetron (ZOFRAN) 4 MG tablet Take 1 Tab by mouth every 6 hours as needed for Nausea/Vomiting 30 Tab 10/06/2016 02/10/2017 Vit-Fe Fumarate-FA ( VITAMIN PO) Take 1 Tab by mouth once daily 11/25/2016 Vit-Fe Fumarate-FA ( VITAMINS) 28-0.8 MG TABS Take 1 Tab by mouth once daily 90 Tab 3 10/06/2016 02/10/2017 sulfamethoxazole-trimet hoprim (BACTRIM DS; SEPTRA DS) 800-160 MG tablet Take 1 Tab by mouth 2 times daily for 7 days 14 Tab 10/06/2016 10/13/2016 documented as of this encounter Progress Notes * Gibran Quiroz MD - 10/06/2016 12:39 PM CST [facility] Return Visit 10/06/2016 S: Marnie Jones is a 20 y.o. @ 14w4d Today she notes that she has a poor appetite. She was unable to take Macrobid prescribed for her UTI due to nausea. Denies CTX, LOF, VB; +FM Her is c/b: Patient Active Problem List Diagnosis Date Noted ??? Encounter for supervision of normal first in first trimester 09/04/2016 First PNV 09/04/16 Interested in Centering. PNL/CHL/GC/U Cx today Pap not indicated EPDS = 5 Would like SS and CF Declines FLU Planning breast and condoms. FOB involved ??? Gastroesophageal reflux disease without esophagitis 09/04/2016 Has Pepcid Rx O: Vitals: 10/06/16 1215 BP: 110/71 Pulse: 94 Resp: 18 Weight: 142 lb (64.4 kg) FHT 162 Recent Labs Component Name 10/06/16 1214 PROTEINUA neg GLUCOSEUA neg KETONEUA neg A/P: Marnie Jones is a 20 y.o. at 14w4d 1. Supervision normal 1. Dating by L/10 week 2. PNLs A+/I/-/-, HIV NR 3. Hgb electrophoresis: nl 4. Anatomy scan 18-20 weeks 5. Wants to follow with Centering 2. UTI 1. Couldn't tolerate Macrobid 2. Called in Zofran and Bactrim; check urine culture next visit 3. Dispo: Follow up with Centering in 4 weeks; anatomy scan 18-20 weeks. Counseled on bleeding, SABprecautions. D/W Dr. Quiroz. Allie Morton MD 10/06/2016 12:42 PM Attending Note I reviewed the history and physical exam findings with Dr. Martinez at the time of the visit. Patient presents with a diagnosis of iup at 14wks Exam and assessment show: wnl Follow up: four weeks I agree with the diagnosis and documented plan of care as documented in the resident note. Gibran Quiroz MD 10/06/20161:56 PM ETING SALES CONSULTANT documented in this encounter Plan of Treatment Upcoming Encounters Date Type Department Care Team (Late st Contact Info) Description 09/19/2024 8:15 AM MARKETING SALES CONSULTANT Hospital Encounter [facility] Maternal & Care [address] [place] [id number] documented as of this encounter Procedures Procedure Name Priority Date/Time Associated Diagnosis Comments GLUCOSE PROTEIN KETONE URINE - POINT OF CAR Routine 10/06/2016 12:14 PM MARKETING SALES CONSULTANT Encounter for supervision of normal first in first trimester (HCC) documented in this encounter Results * MFM US SONOGRAM - COMPLETE (11/03/2016 12:32 PM MARKETING SALES CONSULTANT) Anatomical Region Laterality Modality Other 11/03/2016 12:3 2 PM MARKETING SALES CONSULTANT Narrative 11/03/2016 5:45 PM MARKETING SALES CONSULTANT ? [facility] ? Maternal & Care Center ?PHONE: ??FAX: Pat. Name: ?MARNIE JONES Pat. No: ?[id number] Study Date: ?? 11/03/2016 ??12:32pm , Age: ? 1995, 20 Pregnancies: ?? 1 Height: ? 61 in Weight: ? 140 lb LMP: ?06/26/2016 GA by LMP: ?18w4d GA by 1st: ?18w4d GA by US: ? 18w1d GA Selected: ??18w4d (LMP) WILLIE: ?04/02/2017 Referring MD: MD Eliazar, [facility] Slag Mixer: ??Reyna Lazcano RDMS CPT4: ? 90506 Hist/Ind: ? Anatomic Survey MEASUREMENTS & AGE ? GROWTH EVALUATION Measurement ??GA ? Range ? Srce %for GA Ratios ----- ---- ------- BPD ??4.1 cm 18w3d (10w0h-33z2p) Hadl BPD 47% FL/BPD 0.67 HC ??14.7 cm 17w6d (71d7o-48s0w) Hadl HC ??22% FL/AC ??0.23 AC ??12.1 cm 17w5d (26h4f-78d1y) Hadl AC ??28% HC/AC ??1.22 (1.07 - 1.26) FL ?? 2.8 cm 18w3d (12n2n-45c3f) Hadl FL ??46% CI ? 0.81 (0.70 - 0.86) HL ?? 2.7 cm 18w4d (07n4w-03d8b) Marbin HL ??49% GA for sonogram 18w1d (78z4v-39p9m) ?? Weight Estimate: based on (BPD,HC,AC,FL) Avg ?Weight: 223 gm (190-255) Hadlock ? : 0lbs, 7oz ? Normal: 253 gm (210-296) Hadlock ? Wt% ? 22% for 18w4d Cervical Length: ??4.0 cm Heart Rate: 144 bpm Amniotic Fluid Index: 04.0cm (Deepest Pocket) CLINICAL SUMMARY Study Number: 1 A single fetus is identified in cephalic presentation. ??The measurements today are consistent with appropriate growth compared to previous study. ??The WILLIE selected is based on her LMP. ?? The amniotic fluid volume is within normal limits. ??The placenta is anterior. ??No major malformations are seen. ??The patient was advised that ultrasound does not allow detection of all structural or chromosomal abnormalities. An intracardiac echogenic focus was seen in the left ventricle. ?? In the absence of other risk factors for aneuploidy, this isolated finding is not considered clinically significant. TRANSVAGINAL ULTRASOUND: ?? The transvaginal cervical length measures 4.0cm with no funneling identified. ??No change is seen with fundal pressure. ?? IMPRESSION: Single, live, IUP 18w4d No anomalies identified with completion of the anatomical survey Normal fluid assessment Appropriate interval growth RECOMMEND: ?? Follow up ultrasound as clinically indicated Thank you for allowing us the opportunity to care for your patient. Omar Nina MD <Electronic Signature> ??11/03/2016 05:45pm Allie Martinez MD [facility] ORDERABLES * GLUCOSE PROTEIN KETONE URINE - POINT OF CAR (10/06/2016 12:14 PM MARKETING SALES CONSULTANT) Glucose UA neg Negative [facility] POCT TESTING Protein UA neg Negative [facility] POCT TESTING Ketone UA neg Negative [facility] POCT TESTING QC Verified Yes Yes [facility] POC T TESTING Urine URINE / Unknown 10/06/2016 1 2:14 PM MARKETING SALES CONSULTANT Elma Obrien MD LAB - POINT OF CARE ORDERABLES [facility] POCT TESTING [address] [place] [address], [facility] [phone] documented in this encounter Visit Diagnoses Diagnosis Encounter for supervision of normal first in first trimester ([facility])- Primary Supervision of normal first Gastroesophageal reflux disease without esophagitis Esophageal reflux 14 weeks gestation of ([facility]) state, incidental Encounter for supervision of normal first in first trimester ([facility]) Supervision of normal first Gastroesophageal reflux disease without esophagitis Esophageal reflux Encounter for anatomic survey ([facility]) Encounter for anatomic survey Encounter for maternal care for suspected poor growth in roman in third trimester ([facility])- Primary Aversion to food: limiting protein intake Feeding difficulties and mismanagement Abnormal ultrasound: dopplers elevated S/d ratio Abnormal findings on screening High-risk in third trimester ([facility]) Previous baby with growth restriction Encounter for screening ([facility]) documented in this encounter
--- OUTSIDE RECORDS SUMMARY | 2024-09-18 05:31 | XMS_ITS | Encounter Summary ---
Author Organization [facility] Address [facility] [place] [address] Care Team Providers Care Doula Name Role Phone Unavailable Primary Care Provider Unavailabl e Reason for Visit * Reason Comments FAD NST Encounter Details Date Type Department Care Team (Latest Contact Info) Description 02/10/2017 10:12 AM CDT Hospital Encounter [facility] MATERNAL/ EVALUATION UNIT [address] [facility] [place] [address] Tammy Jesus, ASSISTANT GROCERY STORE MANAGER-[facility] [address] [place] [address] Discharge Disposition: Home or Self Care Social [...] st Contact Info) Description 09/19/2024 8:15 AM [facility] Hospital Encounter [facility] Maternal & Care [address] [place], [place] [phone] documented as of this encounter Visit Diagnoses Diagnosis Encounter for supervision of normal first in first trimester ([facility]) Supervision of normal first Gastroesophageal reflux disease without esophagitis Esophageal reflux Encounter for maternal care for suspected poor growth in roman in third trimester ([facility])- Primary Aversion to food: limiting protein intake Feeding difficulties and mismanagement Abnormal ultrasound: dopplers elevated S/d ratio Abnormal findings on screening High-risk in third trimester ([facility]) Previous baby with growth restriction Encounter for screening ([facility]) documented in this encounter
--- OUTSIDE RECORDS SUMMARY | 2024-09-18 05:31 | XMS_ITS | Encounter Summary ---
Author Organization [facility] Address [address] [place] [address] Care Team Providers Care Shipmaster Name Role Phone Unavailable Primary Care Provider Unavailabl e Reason for Visit * Reason Comments Ultrasound Encounter Details Date Type Department Care Team (Latest Contact Info) Description 01/25/2017 10:45 AM CDT - 01/25/2017 11:59 PM CDT Hospital Encounter [facility] MATERNAL/ EVALUATION UNIT [address] [place] [phone] Abram Hall MD [address] [facility] [address] [place] [address] Discharge Disposition: Home or Self Care Social [...] 8:15 AM [facility] Hospital Encounter [facility] Maternal & Care [address] [place], [place] [phone] Scheduled Orders Name Type Priority Associated Diagnoses Orde r Schedule SONOGRAM - COMPLETE MATRNL MED Routine ONCE for 1 Occurrences starting 01/25/2017 until 01/25/2017 documented as of this encounter Visit Diagnoses Diagnosis Encounter for supervision of normal first in first trimester ([facility]) Supervision of normal first SGA (small for gestational age) ([facility]) Mxueo-izd-pwgon without mention of malnutrition, unspecified (weight) Encounter for maternal care for suspected poor growth in roman in third trimester ([facility])- Primary Aversion to food: limiting protein intake Feeding difficulties and mismanagement Abnormal ultrasound: dopplers elevated S/d ratio Abnormal findings on screening High-risk in third trimester ([facility]) Previous baby with growth restriction Encounter for screening ([facility]) documented in this encounter
--- OUTSIDE RECORDS SUMMARY | 2024-09-18 05:31 | XMS_ITS | Encounter Summary ---
Author Organization [facility] Address [facility] [place] [address] Care Team Providers Care Field Handyman Name Role Phone Unavailable Primary Care Provider Unavailabl e Reason for Visit * Evaluate & Treat (Routine) - Closed Specialty Diagnoses / Procedures Referred By Christina diana Referred To Contact Maternal Medicine Diagnoses Encounter for screening of mother Procedures MA FULL ROUT OBSTE CARE,VAGINAL Abram Martin MD [address] [facility] [address] [place] [address] [facility] [address] [place] [address] Referral ID Status Reason Start Date Expiration Date Visits Re quested Visits Authorized [id number] Closed 09/11/2016 06/03/2017 20 20 Encounter Details Date Type Department Care Team (Latest Contact Info) Description 11/03/2016 12:14 PM [facility] Hospital Encounter [facility] MATERNAL/ EVALUATION UNIT [address] [place] [address] Gibran Quiroz MD [address] [facility] [address] [place] [address] Discharge Disposition: Home or Self [...] this encounter Progress Notes * Tammy Jesus, XI[employer]-SPECIALTY FOOD PRODUCTS SUPERVISOR - 11/03/2016 2:11 PM CST [facility] Clinic Return Visit 11/03/2016 S: Marnie Jones is a 20 y.o. @ 18w4d today she has complaints of contractions at night. Denies any now. Reports constipation but has stool softners. Denies VB, LOF, and reports +FM since 16 weeks. Had ultrasound today. States nausea and vomiting have resolved. She is no longer taking nausea medication. She completed her antibiotic for UTI. Her is c/b: Patient Active Problem List Diagnosis Date Noted ??? Encounter for supervision of normal first in first trimester 09/04/2016 First PNV 09/04/16 Interested in Centering. PNL/CHL/GC/U Cx today Pap not indicated EPDS = 5 Would like SS and CF Declines FLU Planning breast and condoms. FOB involved ??? Gastroesophageal reflux disease without esophagitis 09/04/2016 Has Pepcid Rx O: Vitals: 11/03/16 1340 BP: 122/58 Pulse: 80 Resp: 20 Weight: 143 lb (64.9 kg) FHR: 144 CL: 4.0 Anatomy scan today with EIF on left side Extremities: WNL, normal size and shape bilaterally Recent Labs Component Name 11/03/16 1344 PROTEINUA trace GLUCOSEUA neg KETONEUA neg A/P: Marnie Jones is a 20 y.o. at 18w4d 1. Supervision normal 1. Dating by L/10 week 2. PNLs A+/I/-/-, HIV NR 3. Hgb electrophoresis: nl 4. Anatomy scan complete 5. Wants to follow with Centering 6. CL: 4.0 2. UTI 1. Couldn't tolerate Macrobid but completed Bactrim; urine culture today 3. Dispo: Follow up with Centering in 4 weeks. Counseled on bleeding, SAB precautions. KARLY Dorantes 11/03/2016 2:11 PM MIC RESEARCH ENGINEER documented in this encounter Plan of Treatment Upcoming Encounters Date Type Department Care Team (Late st Contact Info) Description 09/19/2024 8:15 AM CERAMIC RESEARCH ENGINEER Hospital Encounter [facility] Maternal & Care [address] [place] [address] documented as of this encounter Procedures Procedure Name Priority Date/Time Associated Diagnosis Comments CULTURE URINE Routine 11/03/2016 2:11 PM CERAMIC RESEARCH ENGINEER Encounter for supervision of normal first in first trimester (HCC) GLUCOSE PROTEIN KETONE URINE - POINT OF CAR Routine 11/03/2016 1:44 PM CERAMIC RESEARCH ENGINEER Encounter for supervision of normal first in first trimester (HCC) documented in this encounter Results * CULTURE URINE (11/03/2016 2:11 PM CERAMIC RESEARCH ENGINEER) Culture 10,000-50,000 CFU/mL urogenital anjelica CHELA 11/04/2016 2:06 PM CERAMIC RESEARCH ENGINEER [facility] MICROBIOLOGY Urine URINE SPECIMEN OBTAINED BY CLEAN CATCH PROCEDURE / Unknown Collection / Unknown 11/03/2016 2:11 PM CERAMIC RESEARCH ENGINEER 11/03/2016 2:17 PM CERAMIC RESEARCH ENGINEER Tammy BRANDT LAB - MICROBI OLOGY ORDERABLES [facility] MICROBIOLOGY [address] [place], [place] [address], [facility] [phone] * GLUCOSE PROTEIN KETONE URINE - POINT OF CAR (11/03/2016 1:44 PM CERAMIC RESEARCH ENGINEER) Glucose UA neg Negative [facility] POCT TESTING Protein UA trace Negative [facility] POCT TESTING Ketone UA neg Negative [facility] POCT TESTING QC Verified Yes Yes [facility] POC T TESTING Urine URINE / Unknown 11/03/2016 1 :44 PM CERAMIC RESEARCH ENGINEER Ivette Duncan MD LAB - POINT OF CARE ORDERABLES [facility] POCT TESTING [address] [phone] documented in this encounter Visit Diagnoses Diagnosis Encounter for supervision of normal first in first trimester ([facility])- Primary Supervision of normal first Gastroesophageal reflux disease without esophagitis Esophageal reflux UTI in , second trimester ([facility]) Encounter for maternal care for suspected poor growth in roman in third trimester ([facility])- Primary Aversion to food: limiting protein intake Feeding difficulties and mismanagement Abnormal ultrasound: dopplers elevated S/d ratio Abnormal findings on screening High-risk in third trimester ([facility]) Previous baby with growth restriction Encounter for screening ([facility]) documented in this encounter
--- OUTSIDE RECORDS SUMMARY | 2024-09-18 05:31 | XMS_ITS | Encounter Summary ---
Author Organization [facility] Address [address] [place] [address] Care Team Providers Care Shift Stacker Name Role Phone Unavailable Primary Care Provider Unavailabl e Reason for Visit * Reason Comments Decreased Movement I'm not feelin g right and my baby isn't moving. * Auth/Cert Specialty Diagnoses / Procedures Referred By Christina diana Referred To Contact Referral ID Status Reason Start Date Expiration Date Visits Re quested Visits Authorized [id number] 1 1 Encounter Details Date Type Department Care Team (Latest Contact Info) Description 12/13/2016 3:30 PM CDT - 12/13/2016 4:44 PM CDT Hospital Encounter [facility] 5 [address] [place], [place] [id number] Osorio Hall MD [address] [place] [address] Obstetrics Discharge Disposition: Home or Self Care [...] Sign Reading Time Taken Comments Blood Pressure 128/72 12/13/2016 4:19 PM CDT Pulse - - Temperature 36.8 ??C (98.2 ??F) 12/13/2016 3:41 PM CD T Respiratory Rate 20 12/13/2016 3:41 PM CDT Oxygen Saturation - - Inhaled Oxygen Concentration - - Weight 64.9 kg (143 lb) 12/13/2016 3:41 PM CDT Height 154.9 cm (5' 1 ) 12/13/2016 3:41 PM CDT Body Mass Index 27.02 12/13/2016 3:41 PM CDT documented in this encounter Discharge Instructions * Discharge Instructions* Milla Zimmerman RN - 12/13/2016 4:35 PM CDT SYMPTOMS/PROBLEMS TO REPORT TO DOCTOR: 1. Contractions--more than 5/ hr., including backache, pelvic/ rectal pressure, cramping. (Contractions should be timed from the beginning of one contraction to beginning of the next contraction.) 2. Ruptured membranes or leakage of vaginal fluid-- a. may be a steady trickle or large gush b. may be clear, yellow, pink, or green in color 3. Vaginal bleeding--bright red bleeding and/or clots needs medical attention immediately. 4. Decreased activity--if your baby has stopped moving or is moving less than it normally does, do Kick Counts as instructed. (Normal is 8 movements in 2 hours.) 5. Other symptoms to report: persistent headache; upper abdominal pain; swelling of hands, face, legs and feet; visual disturbances; persistent nausea and vomiting; decreased urinary output; significant increase or decrease in weight; constipation or diarrhea; temperature 100.5 degrees or above. * Discharge Instr - Patient Instructions* Milla Zimmerman RN - 12/13/2016 4:34 PM CDT No discharge procedures on file. Instructions: { :[id number]} Medications: Discharge Medication List Unreviewed Medications Instructions Authorizing Provider famotidine 20 MG tablet Commonly known as: PEPCID Take 1 Tab by mouth once daily as needed for Heartburn (Indigestion) Chelsea White ondansetron 4 MG tablet Commonly known as: ZOFRAN Take 1 Tab by mouth every 6 hours as needed for Nausea/Vomiting Allie Martinez V Vitamins 28-0.8 MG Tabs Take 1 Tab by mouth once daily Allie Martinez V Discharge to home. documented in this encounter Medications at Time [...] H&P Notes * Yolette Peters MD - 12/13/2016 3:40 PM CDT R1 Obstetric H&P Note 12/13/2016, 4:36 PM CC: I can't feel my baby move HPI: 20 y.o. at 24w2d gestation by by Last Menstrual Period and confirmatory scan at 10 weeks, documented. Estimated Date of Delivery: 04/02/17 care: is [...] Pepcid Rx Patient presents with complaints of not feeling her baby move. negative Ctx. negative LOF. negative VB. negative FM. Review of Symptoms: Positive for: see HPI Denies: fevers, chills, headache, chest pain, shortness of breath, nausea, vomiting, diarrhea, constipation, dysuria, urinary frequency, changes in vaginal discharge Obstetrical History: OB History Para Term AB SAB TAB Ectopic Multiple Living 1 # Outcome Date GA Lbr Gigi/2nd Weight Sex Delivery Anes PTL Lv 1 Current Gynecologic History: Abnormal pap smears: No Cervical procedures no STDs: Remote history og chlamydia. Denies recent history of gonorrhea, chlamydia, trichomonas, herpes, HIV, syphilis Medical History: Past Medical History Diagnosis Date ??? Chlamydia contact, treated 07/29/2013 reports repeat infection 2014 ??? History of sexually transmitted disease ??? NEGATIVE PAST MEDICAL HISTORY - SEE PROBLEM LIST She denies history of hypertension, diabetes, asthma or bleeding disorders. Psych History: Depression: yes Anxiety: yes Bipolar disorder: No Schizophrenia: No Suicide attempts: No Abuse: No Surgeries: Past Surgical History Procedure Laterality Date ??? Negative surgical history Current Medications: Prior to Admission medications Medication [...] activity: Not on file Family History: No history of infants born with defects No history of family members with bleeding disorders or history of blood clots. No history of breast, ovarian, or uterine cancer Objective: Vitals: 12/13/16 1539 12/13/16 1541 12/13/16 1619 BP: 125/65 128/72 Resp: 20 Temp: 98.2 ??F Weight: 143 lb (64.9 kg) non-stress test (roman): baseline rate 150, variability: moderate, 10x10 accelerations present (gestationally appropriate), no decelerations present, reassuring, cat I [place]: none Physical Exam: General: alert, cooperative, no distress Lungs: clear to auscultation bilaterally Heart: regular rate and rhythm Abdomen: gravid, soft, nontender, normal bowel sounds Extremities: normal, non-tender bilaterally. Edema absent Sterile speculum exam: Deferred Cervix: Cervical Exam Pelvimetry: Deferred Bedside ultrasound: Presentation: vertex Placenta: anterior Amniotic fluid index 10.36 Biophysical profile 06/29 Current Lab Review: No results found for this visit on 12/13/16. labs will request if admit Assessment/Plan: 20 y.o. @ 24w2d 1. Decreased movement 1. 06/29 BPP 2. Anterior placenta 3. Showed pt baby moving on ultrasound, pt reassured 4. Discussed with pt that with anterior placenta it can be more difficult to feel baby move and that the important thing for her is that she recognize what normal movement is for her and recognizer any deviations from the norm. Discussed kick counts and methods to wake baby up. Also discussed how movements change throughout the course of 2. Mood issues 1. Pt reported depression and anxiety and feeling overwhelmed. Tearful with nursing staff but reports mood si stable and no thought of hurting herself or others. Would like to see someone outpt. Willroute note to fishing reel assembler to see if she can get a centering appointment this week for additional support or transfer to mood clinic. Pt amenable to those ideas 3. Remote history of STIs 1. Denies current symptoms 4. well being: reassuring 5. Follow up: centering, possibly mood clinic 6. Dispo: home with precautions Discussed with Dr. Salas and Dr. Ayana Peters MD 12/13/2016 4:36 PM Associated attestation - Ann Piña MD - 12/13/2016 8:00 PM CDT I have personally seen and evaluated this patient and I agree with the resident note as written above. documented in this encounter Procedure Notes * Yolette Peters MD - 12/13/2016 4:37 PM CDT Non-Stress Test Indications: Patient Active Problem List Diagnosis ??? Encounter for supervision of normal first in first trimester ??? Gastroesophageal reflux disease without esophagitis 150 beats/minute Moderate variability 10x10 accels present, gestationally appropriate No decelerations No contractions FWB reassuring, continue monitoring as scheduled. Yolette Peters MD 12/13/2016 4:37 PM R1 BPP Biophysical Profile (see Ultrasound Report) Fetus F. Breathing F. Movement F. Tone AVF 2 2 2 2 Total 04/27 Plus NST 06/29 ROSITA: 10.36 Position: vertex Placenta: anterior Yolette Peters MD 12/13/2016 4:38 PM Associated attestation - Ann Piña MD - 12/13/2016 8:05 PM CDT I personally reviewed the NST and I agree with the interpretation as written by the resident. documented in this encounter Plan of Treatment Upcoming Encounters Date Type Department Care Team (Late st Contact Info) Description 09/19/2024 8:15 AM [facility] Hospital Encounter [facility]aternal & Care [address] [place] [address] documented as of this encounter Procedures Procedure Name Priority Date/Time Associated Diagnosis Comments IMAGING/RADIOLOGY/X RAY RESULTS ORDER 12/25/2016 10:42 PM CDT documented in this encounter Results * IMAGING/RADIOLOGY/XRAY RESULTS ORDER (12/25/2016 10:42 PM CDT) Anatomical Region Laterality Modality Other Narrative 12/25/2016 10:42 PM CDT Ordered by an unspecified provider. Scanned Document IMAGING documented in this encounter Visit Diagnoses Not on filedocumented in this encounter
--- OUTSIDE RECORDS SUMMARY | 2024-09-18 05:31 | XMS_ITS | Encounter Summary ---
Author Organization [facility] Address [facility] [place] [address] Care Team Providers Care Tactical Air Control Party Manager Name Role Phone Unavailable Primary Care Provider Unavailabl e Reason for Visit * Reason Comments Ultrasound Encounter Details Date Type Department Care Team (Late Contact Info) Description 09/04/2016 9:00 AM FEATHER MAKER - 09/04/2016 9:16 AM [facility] Hospital Encounter [facility] MATERNAL/ EVALUATION UNIT [address] [place] [address] Ignacia Roca MD [address] [facility] [place] [address] Discharge Disposition: Home or Self Care Social [...] needed for Nausea/Vomiting 20 Tab 08/18/2016 10/06/2016 documented as of this encounter Plan of Treatment Upcoming Encounters Date Type Department Care Team (Late Contact Info) Description 09/19/2024 8:15 AM FEATHER MAKER Hospital Encounter [facility] Maternal & Care [address] [place] [address] documented as of this encounter Procedures Procedure Name Priority Date/Time Associated Diagnosis Comments SONOGRAM - COMPLETE Routine 09/04/2016 9 :29 AM FEATHER MAKER documented in this encounter Results * SONOGRAM - COMPLETE (09/04/2016 9:29 AM FEATHER MAKER) Anatomical Region Laterality Modality Other 09/04/2016 9:29 AM FEATHER MAKER Narrative 09/04/2016 10:33 AM FEATHER MAKER ? [facility] ? Maternal & Care Center ?PHONE: ??FAX: Pat. Name: ?MARNIE JONES Pat. No: ?[id number] Study Date: ?? 09/04/2016 ??9:29am , Age: ? 1995, 21 Pregnancies: ?? 1 Height: ? 61 in Weight: ? 140 lb LMP: ?06/26/2016 GA by LMP: ?10w0d GA by US: ? 09w5d GA Selected: ??10w0d (LMP) WILLIE: ?04/02/2017 Referring MD: MD Eliazar, [facility] Lodging Facilities Manager: ??Reyna Lazcano RDMS CPT4: ? 54172 BMI: ?26.45 Hist/Ind: ? Dating MEASUREMENTS & AGE ? GROWTH EVALUATION Measurement ??GA ? Range ? Srce %for GA Ratios ----- ---- ------- CRL ??2.9 cm 09w5d (65z4o-52d5w) Hadl CRL 38% GA for sonogram 09w5d (23g1h-26f5v) based on (CRL) Avg ? Heart Rate: 165 bpm CLINICAL SUMMARY Study Number: ??1 A single intrauterine gestational sac is seen. ??The gestational sac contains a fetus and yolk sac. ??There is normal heart motion. ??The right ovary was seen and appears normal. ??The left ovary was contains a cyst consistent with a corpus luteum. ??There is no free fluid in the cul de sac. IMPRESSION: Single, live IUP at 10w0d consistent with WILLIE of ?? 04/02/2017 based on LMP RECOMMEND: ?? Follow up ultrasound at 11-13 weeks if desires NT testing Follow up ultrasound at 18-20 weeks for anatomy survey Thank you for allowing us the opportunity to care for your patient. Ruth Ann Tipton MD <Electronic Signature> ??09/04/2016 10:32am Ignacia Roca MD [facility] ORDERABLES documented in this encounter Visit Diagnoses Diagnosis Examination to determine viability of , not applicable or unspecified fetus (HCC) Encounter [...]
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
--- OUTSIDE RECORDS SUMMARY | 2024-09-18 05:31 | XMS_ITS | Encounter Summary ---
Author Organization [facility] Address [address] [facility] [place] [address] Care Team Providers Care Video Production Engineer Name Role Phone Unavailable Primary Care Provider Unavailabl e Encounter Details Date Type Department Care Team (Latest Contact Info) Description 02/10/2017 10:13 AM CDT - 02/10/2017 11:59 PM CDT Hospital Encounter [facility] MATERNAL/ EVALUATION UNIT [address] [place] [address] Tammy Jesus, MEDICAID ELIGIBILITY SPECIALIST-[facility] [address] [place] [address] Discharge Disposition: Home or Self Care Social [...] 03/12/2017 11/28/2018 documented as of this encounter Progress Notes * Arianna Quick - 02/10/2017 12:26 PM CDT This did not stay for her doctor appointment. * Lindy Wakefield LCSW - 02/10/2017 12:23 PM CDT lay out worker met very briefly with patient during her outpatient appointment due to the father of baby present. Patient stated she is doing well. lay out worker is available to meet with patient as needed. Lindy Wakefield LCSW [phone] * Luz Burns RN - 02/10/2017 12:09 PM CDT Patient wieghed and placed in room. After handing chart to PERIODICALS CLERK walked by room and it was empty. Attempted to catch up to patient in waiting room. Patient left without being seen. documented in this encounter Plan of Treatment Upcoming Encounters Date Type Department Care Team (Late st Contact Info) Description 09/19/2024 8:15 AM ACCOUNT EXECUTIVE SALES REPRESENTATIVE Hospital Encounter [facility] Maternal & Care [address] [place] [id number] documented as of this encounter Visit Diagnoses Not on filedocumented in this encounter
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
--- OUTSIDE RECORDS SUMMARY | 2024-09-18 05:31 | XMS_ITS | Encounter Summary ---
Author Organization [facility] Address [address] [facility] [place] [address] Care Team Providers Care Tree Shear Operator Name Role Phone Unavailable Primary Care Provider Unavailabl e Reason for Visit * Reason Comments Ultrasound Encounter Details Date Type Department Care Team (Latest Contact Info) Description 02/17/2017 9:57 AM CDT Hospital Encounter [facility] MATERNAL/ EVALUATION UNIT [address] [facility] [place] [address] Gibran Quiroz MD [address] [place] [address] Tammy Jesus, [facility] [address] [place] [address] Discharge Disposition: Home or Self Care Social [...] Contact Info) Description 09/19/2024 8:15 AM [facility] Hospital Encounter [facility] Maternal & Care [address] [place] [address] documented as of this encounter Procedures Procedure Name Priority Date/Time Associated Diagnosis Comments BIOPHYSICAL PROFILE W NST Routine 02/17/2017 12:21 PM CDT Uterine size date discrepancy , third trimester (HCC) documented in this encounter Results * [facility] BIOPHYSICAL PROFILE W NST (02/17/2017 12:21 PM CDT) Anatomical Region Laterality Modality Other 02/17/2017 12:2 1 PM CDT Narrative 02/17/2017 1:23 PM CDT ?[facility] ? Maternal & Care Center ?PHONE: ??FAX: Pat. Name: ?MARNIE JONES Pat. No: ?[id number] Study Date: ?? 02/17/2017 ??12:21pm , Age: ? 1995, 21 Pregnancies: ?? 1, Para 0 Height: ? 61 in Weight: ? 140 lb LMP: ?06/26/2016 GA by LMP: ?33w5d GA by 1st: ?33w5d GA Selected: ??33w5d (From First S) WILLIE: ?04/02/2017 Referring MD: MD Eliazar, [facility] Process Control Programmer: ??Paige Bowman RDMS CPT4: ? 15322, 07405, 96213, 47763 BMI: ?26.45 Hist/Ind: ? Size <Dates ?S/P trauma/RUQ pain Heart Rate: 142 bpm Amniotic Fluid Index: 15.4cm (08.2-24.7) Q1: 4.4cm ??Q2: 3.6cm ??Q3: 3.7cm ??Q4: 3.8cm ?? Biophysical Profile: 06/29 Breathin ?? Tone: 2 ?? NST: 2 Movement: ??2 ?? AFV: ??2 DOPPLER Umbilical - Mid Cord S/D ??3.69(1.75 - 3.71) ? PI ?? 1.26 (0.63 - 1.21) * ?? Middle Cerebral Artery PSV ?? PI ?? 2.21 (1.54 - 2.76) ? Med PSV 48.2cm/s MoM 1.25(<1.5) CLINICAL SUMMARY Study Number: 7 A roman fetus is identified in cephalic presentation. ??The placenta is anterior. ??There is no sonographic evidence of placental abruption. ??The amniotic fluid volume is within normal limits. ?? DOPPLER STUDIES: The umbilical artery Doppler S/D ratio is 3.69, which is within upper limits of normal for gestational age The umbilical PI is 1.26, which is increased for gestational age The MCA PI is 2.21, which is within normal limits for gestational age ?? TESTING: The biophysical profile score is 10/10 IMPRESSION: ?? Single, live IUP at 33w5d Normal AFV Reassuring BPP and Dopplers RECOMMEND: ?? Follow up BPP and Dopplers in one week Thank you for allowing us the opportunity to care for your patient Abram Hall MD <Electronic Signature> ??02/17/2017 01:22pm Dorothy Enrique APRN-FEEDLOT MANAGER M ORDERABLES documented in this encounter Visit [...]
--- OUTSIDE RECORDS SUMMARY | 2024-09-18 05:31 | XMS_ITS | Encounter Summary ---
Author Organization [facility] Address [facility] [facility] [place] [address] Care Team Providers Care Clay Maker Name Role Phone Unavailable Primary Care Provider Unavailabl e Reason for Visit * Reason Comments Ultrasound * Evaluate & Treat (Routine) - Closed Specialty Diagnoses / Procedures Referred By Christina diana Referred To Contact Maternal Medicine Diagnoses Gastro-esophageal reflux disease without esophagitis Encounter for screening of mother Procedures UT US, UTERUS,TRANSVAGINAL PCHG US,PREG UTER, & MAT, 2-3 TRIMEST Abram Hall MD [address] [facility] [address] [place] [address] [facility] [address] [place] [address] Referral ID Status Reason Start Date Expiration Date Visits Re quested Visits Authorized [id number] Closed 11/03/2016 05/02/2017 1 1 Encounter Details Date Type Department Care Team (Latest Contact Info) Description 11/03/2016 12:15 PM PHOTOENGRAVING RETOUCHER - 11/03/2016 11:59 PM PHOTOENGRAVING RETOUCHER Hospital Encounter [facility] MATERNAL/ EVALUATION UNIT [address] [place] [address] Gibran Quiroz MD [address] [employer] [facility] [address] [place], [place] [id number] Discharge Disposition: Home or Self Care Social [...] st Contact Info) Description 09/19/2024 8:15 AM PHOTOENGRAVING RETOUCHER Hospital Encounter [facility] Maternal & Care [address] [place] [address] documented as of this encounter Procedures Procedure Name Priority Date/Time Associated Diagnosis Comments SONOGRAM - COMPLETE Routine 11/03/2016 1 2:32 PM PHOTOENGRAVING RETOUCHER Encounter for supervision of normal first in first trimester (HCC) Gastroesophageal reflux disease without esophagitis documented in this encounter Results * [facility] US SONOGRAM - COMPLETE (11/03/2016 12:32 PM PHOTOENGRAVING RETOUCHER) Anatomical Region Laterality Modality Other 11/03/2016 12:3 2 PM PHOTOENGRAVING RETOUCHER Narrative 11/03/2016 5:45 PM PHOTOENGRAVING RETOUCHER ? [facility] ? Maternal & Care Center ?PHONE: ??FAX: Pat. Name: ?MARNIE JONES Freddie Moffett. No: ?[id number] Study Date: ?? 11/03/2016 ??12:32pm , Age: ? 1995, 20 Pregnancies: ?? 1 Height: ? 61 in Weight: ? 140 lb LMP: ?06/26/2016 GA by LMP: ?18w4d GA by 1st: ?18w4d GA by US: ? 18w1d GA Selected: ??18w4d (LMP) WILLIE: ?04/02/2017 Referring MD: MD Eliazar, [facility] Identification Technician: ??Reyna Lazcano RDMS CPT4: ? 80033 Hist/Ind: ? Anatomic Survey MEASUREMENTS & AGE ? GROWTH EVALUATION Measurement ??GA ? Range ? Srce %for GA Ratios ----- ---- ------- BPD ??4.1 cm 18w3d (96q7w-90p3j) Hadl BPD 47% FL/BPD 0.67 HC ??14.7 cm 17w6d (09k2x-71e7c) Hadl HC ??22% FL/AC ??0.23 AC ??12.1 cm 17w5d (69m6g-72c5k) Hadl AC ??28% HC/AC ??1.22 (1.07 - 1.26) FL ?? 2.8 cm 18w3d (38r7d-45k0c) Hadl FL ??46% CI ? 0.81 (0.70 - 0.86) HL ?? 2.7 cm 18w4d (59s0q-44w7d) Marbin HL ??49% GA for sonogram 18w1d (16u0t-71j4q) ?? Weight Estimate: based on (BPD,HC,AC,FL) Avg [...] <Electronic Signature> ??11/03/2016 05:45pm Allie Martinez MD [facility] ORDERABLES documented in this encounter Visit Diagnoses Diagnosis Encounter for supervision of normal first in first trimester ([facility]) Supervision of normal first Gastroesophageal reflux disease without esophagitis Esophageal reflux Encounter for anatomic survey ([facility]) Encounter for anatomic survey Encounter for maternal care for suspected poor growth in roman in third trimester ([facility])- Primary Aversion to food: limiting protein intake Feeding difficulties and mismanagement Abnormal ultrasound: dopplers elevated S/d ratio Abnormal findings on screening High-risk in third trimester ([facility]) Previous baby with growth restriction Encounter for screening ([facility]) documented in this encounter
--- OUTSIDE RECORDS SUMMARY | 2024-09-18 05:31 | XMS_ITS | Encounter Summary ---
Author Organization [facility] Address [facility] [facility] [place] [address] Care Team Providers Care Developmental Therapist Name Role Phone Unavailable Primary Care Provider Unavailabl e Reason for Visit * Reason Comments Routine Visit Encounter Details Date Type Department Care Team (Latest Contact Info) Description 12/01/2016 11:28 AM CDT - 12/01/2016 11:59 PM CDT Hospital Encounter [facility] MATERNAL/ EVALUATION UNIT [address] [address] [place] [address] Eileen Cardoza MD [address] [address] [place] [address] Discharge Disposition: Home or Self [...] Sign Reading Time Taken Comments Blood Pressure 119/68 12/01/2016 12:23 PM CDT Pulse 85 12/01/2016 12:23 PM CDT Temperature - - Respiratory Rate - - Oxygen Saturation - - Inhaled Oxygen Concentration - - Weight 65.8 kg (145 lb) 12/01/2016 12:23 PM CDT Height 154.9 cm (5' 1 ) 12/01/2016 12:23 PM CDT Body Mass Index 27.4 12/01/2016 12:23 PM CDT documented in this encounter Medications [...] as of this encounter Progress Notes * Eileen Cardoza MD - 12/01/2016 12:33 PM CDT Clinic Return OB Subjective: Marnie Jones is a 20 y.o. at 22w4d. Pt reports no concerns today. FOB with her. Plans tocontinue centering. Nausea is getting better but still taking zofran/pepcid. negative Ctx negative VB negative LOF positive FM is complicated by: Patient Active Problem List Diagnosis ??? Encounter for supervision of normal first in first trimester ??? Gastroesophageal reflux disease without esophagitis Patient Vitals for the past 6 hrs: Pulse BP 12/01/16 1223 85 119/68 FH: 22cm FHTs: 150s Recent Labs Component Name 12/01/16 1222 PROTEINUA trace GLUCOSEUA neg KETONEUA neg A/P: 20 y.o. at 22w4d 1. Supervision of normal first 1. PNL wnl 2. Anatomy scan wnl with isolated IEF, genetic screening was not performed FWB reassuring RTC 3 weeks with Centering appointment only D/w Dr. Sony Nagel MD 12/01/2016 12:34 PM Attending Note I reviewed the history and physical exam findings with resident/nurse practitioner at the time of the visit. I have reviewed the chart. Please see resident documentation for further details. I agree with the assessment and plan. Eileen Cardoza MD 12/01/2016 1:23 PM documented in this encounter Plan of Treatment Upcoming Encounters Date Type Department Care Team (Late st Contact Info) Description 09/19/2024 8:15 AM SPRAY CEMENTER Hospital Encounter [facility] Maternal & Care [address] [place], [place] [id number] documented as of this encounter Procedures Procedure Name Priority Date/Time Associated Diagnosis Comments GLUCOSE PROTEIN KETONE URINE - POINT OF CAR Routine 12/01/2016 12:22 PM CDT Encounter for supervision of normal first in first trimester ([facility]) documented in this encounter Results * GLUCOSE PROTEIN KETONE URINE - POINT OF CAR (12/01/2016 12:22 PM CDT) Glucose UA neg Negative [facility] POCT TESTING Protein UA trace Negative [facility] POCT TESTING Ketone UA neg Negative [facility] POCT TESTING QC Verified Yes Yes [facility] POC T TESTING Urine URINE / Unknown 12/01/2016 1 2:22 PM CDT Sayra Cerda MD LAB - POINT OF CARE ORDERABLES [facility] POCT TESTING [address] [phone] documented in this encounter Visit Diagnoses Diagnosis Encounter for supervision of normal first in first trimester ([facility]) Supervision of normal first Gastroesophageal reflux disease without esophagitis Esophageal reflux Encounter for maternal care for suspected poor growth in roman in third trimester ([facility])- Primary Aversion to food: limiting protein intake Feeding difficulties and mismanagement Abnormal ultrasound: dopplers elevated S/d ratio Abnormal findings on screening High-risk in third trimester ([facility]) Previous baby with growth restriction Encounter for screening ([facility]) documented in this encounter
--- OUTSIDE RECORDS SUMMARY | 2024-09-18 05:31 | XMS_ITS | Encounter Summary ---
Author Organization [facility] Address [address] [place] [address] Care Team Providers Care Working Foreman Name Role Phone Unavailable Primary Care Provider Unavailabl e Reason for Visit * Reason Comments Ultrasound Encounter Details Date Type Department Care Team (Latest Contact Info) Description 02/10/2017 10:13 AM CDT - 02/10/2017 11:59 PM CDT Hospital Encounter [facility] MATERNAL/ EVALUATION UNIT [address] [place] [address] Gibran Quiroz MD [address] [place] [address] Tammy Jesus, [facility] [address] [place] [address] Discharge Disposition: Home or Self Care Social [...] st Contact Info) Description 09/19/2024 8:15 AM METAL ENGRAVER Hospital Encounter [facility] Maternal & Care [address] [place] [address] documented as of this encounter Procedures Procedure Name Priority Date/Time Associated Diagnosis Comments BIOPHYSICAL PROFILE W NST Routine 02/10/2017 11:19 AM CDT Uterine size date discrepancy , third trimester (HCC) documented in this encounter Results * [facility] BIOPHYSICAL PROFILE W NST (02/10/2017 11:19 AM CDT) Anatomical Region Laterality Modality Other 02/10/2017 11:1 9 AM CDT Narrative 02/10/2017 12:19 PM CDT ? [facility] ? Maternal & Care Center ?PHONE: ??FAX: Pat. Name: ?MARNIE JOENS. No: ?[id number] Study Date: ?? 02/10/2017 ??11:19am , Age: ? 1995, 21 Pregnancies: ?? 1, Para 0 Height: ? 61 in Weight: ? 140 lb LMP: ?06/26/2016 GA by LMP: ?32w5d GA by [facility]: ?32w5d GA by US: ? 32w1d GA Selected: ??32w5d (LMP) WILLIE: ?04/02/2017 Referring MD: Eliazar, , [facility] Lip Cutter And Scorer: ??Mita Bah RN, RDMS CPT4: ? 07399, 76829, 92514 Hist/Ind: ? Size <Dates MEASUREMENTS & AGE ? GROWTH EVALUATION Measurement ??GA ? Range ? Srce %for GA Ratios ----- ---- ------- BPD ??8.0 cm 32w2d (71m6m-15m2i) Hadl BPD 44% FL/BPD 0.78 (0.71 - 0.87) HC ??28.6 cm 31w3d (03y7l-95a5v) Hadl HC ??30% FL/AC ??0.23 (0.20 - 0.24) AC ??27.0 cm 31w1d (48s0e-61e4h) Hadl AC ??26% HC/AC ??1.06 (0.95 - 1.14) FL ?? 6.2 cm 32w2d (86x1p-32h9i) Hadl FL ??44% CI ? 0.80 (0.70 - 0.86) HL ?? 5.8 cm 33w4d (04l3i-86p0v) Marbin HL ??65% GA for sonogram 32w1d (54s1h-62r4v) ?? Weight Estimate: based on (HL,BPD,HC,AC,FL) Avg ? Weight: 1798 gm (0407-9838) Hadlo ? : 3lbs, 15oz ? Normal: 2099 gm (1742- 2457) Hadlo ? Wt% ? 16% for 32w5d Heart Rate: 137 bpm Amniotic Fluid Index: 12.8cm (08.4-24.4) Q1: 4.9cm ??Q2: 0.8cm ??Q3: 4.7cm ??Q4: 2.4cm ?? Biophysical Profile: 04/29 Breathin ?? Tone: 2 ?? NST: 0 Movement: ??2 ?? AFV: ??2 DOPPLER Umbilical - Mid Cord S/D ??2.80(1.81 - 3.80) ? RI ?? 0.63 PI ?? 0.98 (0.65 - 1.23) ? CLINICAL SUMMARY Study 6 The roman fetus is identified in cephalic presentation. ??The amniotic fluid volume is within normal limits. ??The placenta is anterior. ??The FHR baseline was 130 bpm on today's non reactive NST. No decelerations were seen and contraction were not detected. DOPPLER STUDIES: ?? The umbilical artery Doppler S/D ratio is 2.8, which is within normal limits for gestational age. ?? The umbilical artery PI ratio is 0.98, which is within normal limits for gestational age. IMPRESSION: 1) Roman gestation, 32w5d 2) Biometry is consistent with the appropriate interval growth: 16% - The last 16 days have seen increased growth of the abdomen 3) The amniotic fluid volume is within normal limits. 4) Reasssuring biophysical profile RECOMMEND: 1) Continue weekly testing. 2) Repeat growth assessment in 2 - 3 weeks. Thank you for allowing us the opportunity to care for your patient. Omar Nina MD <Electronic Signature> ??02/10/2017 12:19pm Dorothy Enrique APRN-KULWINDER M ORDERABLES documented in this encounter Visit Diagnoses Diagnosis Uterine size date discrepancy , third trimester ([facility]) IUGR (intrauterine growth restriction) affecting care of mother, third trimester, not applicable or unspecified fetus ([facility]) Encounter for maternal care for suspected poor growth in roman in third trimester (HCC)- Primary Aversion to food: limiting protein intake Feeding difficulties and mismanagement Abnormal ultrasound: dopplers elevated S/d ratio Abnormal findings on screening High-risk in third trimester (HCC) Previous baby with growth restriction Encounter for screening (HCC) documented in this encounter
--- OUTSIDE RECORDS SUMMARY | 2024-09-18 05:31 | XMS_ITS | Encounter Summary ---
Author Organization [facility] Address [address] [facility] [place] [address] Care Team Providers Care Associate Director Data & Analytics Name Role Phone Unavailable Primary Care Provider Unavailabl e Reason for Visit * Reason Onset Date Comments MEDICATION REFILL 10/23/2016 PNV Encounter Details Date Type Department Care Team (Late st Contact Info) Description 10/23/2016 Refill [facility] MATERNAL/ EVALUATION UNIT [facility] [facility] [address] [place] [address] Lucretia Lopez TALKBACK HOST REFILL (PNV) Social History Tobacco Use Types Packs/Day Years [...] encounter Miscellaneous Notes * Telephone Encounter - Lucretia Lopez RN - 10/23/2016 2:24 PM WELT INSOLE CHANNELER Pt called requesting gummy INSOLE CHANNELER documented in this encounter Plan of Treatment Upcoming Encounters Date Type Department Care Team (Late st Contact Info) Description 09/19/2024 8:15 AM WELT INSOLE CHANNELER Hospital Encounter [facility] Maternal & Care [id number] [place], [place] [id number] documented as of this encounter Visit Diagnoses Not on filedocumented in this encounter
--- OUTSIDE RECORDS SUMMARY | 2024-09-18 05:33 | XMS_ITS | Continuity of Care Document ---
Author Organization [facility] Address [address] [place] [address] Phone Care Team Providers Care Regrind Mill Operator Name Role Phone Aminta PT, DPT, DEBIT, Brittany Unavailable Unavailable Procedures Procedure Date Ulnar nerve palsy - figure 8 Safe Position Gutter Hand based 021 Therapeutic Exercise Long Arm Splint wrist included 20 Orthotic Mgmt and Training Therapeutic Activities Orthotic Mgmt and Training MP Advice Clerk-based Advance Directives Directive Yes / No Effective Date File Name No Information Encounters Encounter Description Practice Location Reason(s) For Visit Diagnoses Date Provider Providers Copied on Encounter [facility] [facility] [place], [place], [address], tel:[phone] Katie Alvarenga No Information Aminta Soto . . Referring Provider: [facility], [place], [address]. tel:[phone] [place] [address] [address] [facility] [address], [place], [place], [address], tel:[phone] Katie Alvarenga No Information Aminta Soto . . Referring Provider: Hailey VivasMary [facility] [id number], [place], [address]. tel:[phone] [facility], [place], [place], [address], tel:[phone] Katie Alvarenga No Information Olaf Anderson . Referring Provider: Mookie Frank, [facility] [facility] [address], [place], [address]. tel:[phone] Family History Family Member Type Diagnosis Age At Onset No Information Payers Payer name Insurance type Covered green party ID Authoriza tion(s) Self Pay Full Charges Social History Type Description Quantity Date Captured Comments Sex Female Smoking Status No Information Chief Complaint And Reason For Visit No Information Reason For Referral Reason For Referral No Information History Of Present Illness Encounter Date Complaint History Of Prese nt Illness No Information Functional Status Date Functional Assessmen t No Information Instructions Date Instruction Additional Infor mation No Information Assessments Type Assessment Date No Information Patient Care Teams Name Effective Dates (start - stop) Status Members No Information
--- OUTSIDE RECORDS SUMMARY | 2024-09-18 05:33 | XMS_ITS | Encounter Summary ---
Author Organization [facility] Address [address] [place] [address] Care Team Providers Care Field Services Manager Name Role Phone Unavailable Primary Care Provider Unavailabl e Reason for Referral * Radiology Services (Routine) - Pending Review Specialty Diagnoses / Procedures Referred By Christina t Referred To Contact Diagnoses Poor growth affecting management of mother in second trimester, fetus 1 of multiple gestation Procedures US OB LTD+UMB ART DOPPLER CHG DOPPLER VELOCIMETRY UMBILICAL ARTERY CHG US UTERUS LIMITED FETUSES Sheila Mir MD [address] [place] [address] [facility] [address] [place] [address] Referral ID Status Reason Start Date Expiration Date V isits Requested Visits Authorized [id number] Pending Review 08/16/2024 09/16/2025 1 1 CCO DRIER OPERATOR Reason for Visit * Radiology Services (Routine) - Pending Review Specialty Diagnoses / Procedures Referred By Contac t Referred To Contact Diagnoses Poor growth affecting management of mother in second trimester, fetus 1 of multiple gestation Procedures US OB LTD+UMB ART DOPPLER CHG DOPPLER VELOCIMETRY UMBILICAL ARTERY CHG US UTERUS LIMITED 1/> FETUSES Sheila Mir MD [address] [place] [address] [facility] [address] [place] [address] Referral ID Status Reason Start Date Expiration Date V isits Requested Visits Authorized [id number] Pending Review 08/16/2024 09/16/2025 1 1 Encounter Details Date Type Department Care Team (Latest Contact Info) Description 08/23/2024 10:00 AM TOBACCO DRIER OPERATOR - 08/23/2024 11:59 PM TOBACCO DRIER OPERATOR Hospital Encounter [facility] [address] [place] [address] [place] [address] Sheila Chang MD [address] [facility] [address] [place] [address] Discharge Disposition: Home or Self Care Social History Tobacco Use Types Packs/Day Years Used Date Smoking Tobacco: Never Assessed Sex and Gender Information Value Date Recorded Sex Assigned at Not on file Gender Identity Not on file Sexual Orientation Not on file documented as of this encounter Plan of Treatment Not on file documented as of this encounter Procedures Procedure Name Priority Date/Time Associated Diagnosis Comments US OB LTD+UMB ART DOPPLER Routine 08/23/2024 10:31 AM TOBACCO DRIER OPERATOR Poor growth affecting management of mother in second trimester, fetus 1 of multiple gestation documented in this encounter Results * US OB LTD+UMB ART DOPPLER (08/23/2024 10:31 AM TOBACCO DRIER OPERATOR) Anatomical Region Laterality Modality Pelvis Ultrasound 08/23/2024 11:1 5 AM TOBACCO DRIER OPERATOR Narrative 08/23/2024 10:40 AM TOBACCO DRIER OPERATOR STL LIMITED ----- Pat. Name: MARNIE MURPHY Study Date: 08/23/2024 11:15am Pat. NO: [id number] Referring ??: MARY CAMPBELL MD Site: [facility] Skate Maker: Latanya ButlerMiriam PARISH : 1995 Age: 28 ----- INDICATION ----- Intrauterine Growth Restriction (IUGR) Circumvallate Placenta History of PTL/PTD in Previous , Currently CODING ----- Diagnoses ? Z3A.27: Weeks of gestation ?O09.212: Supervision of with history of pre-term labor ?O43.112: Circumvallate placenta ?O36.5920: Maternal care for other known or suspected poor growth Procedures ?72426: Ultrasound, uterus, real time with image documentation, limited one or more fetuses ?52250: Doppler velocimetry, ; umbilical artery ?22902: Doppler velocimetry, ; middle cerebral artery METHOD ----- Transabdominal ultrasound examination ----- Vora . Number of fetuses: 1 DATING ----- GA by prior assessment 27 w + 0 d WILLIE by prior assessment: 11/22/2024 Method of dating: Restore dating from previous exam Assigned: based on stated WILLIE, selected on 08/16/2024 Assigned GA 27 w + 0 d Assigned WILLIE: 11/22/2024 GENERAL EVALUATION ----- Cardiac activity present. FHR 148 bpm. movements: present. Presentation: breech Placenta: Placental site: posterior Umbilical cord: Cord vessels: 3 vessel cord Amniotic fluid: Amount of AF: normal amount. MVP 4.5 cm. ROSITA 13.2 cm. Q1 4.5 cm, Q2 2.6 cm, Q3 4.1 cm, Q4 2.0 cm ANATOMY ----- The following structures appear normal: Heart / Thorax ?Cardiac rhythm. Abdomen ? Stomach. Bladder. DOPPLER ----- Umbilical Artery: abnormal. Sampling site: midcord PI ? 1.51 ? 99% ?Regi RI ? 0.82 ? 98% ?Regi PS ? 52.48 ?cm/s ED ? 10.49 ?cm/s TAmax ?29.34 ?cm/s MD ? 10.22 ?cm/s S / D ?5.41 ? >99% ?Regi Mid Cerebral Artery: normal PI ? 1.91 ? 47% ?Bahlmann RI ? 0.83 ? 67% ?[facility] PS ? 40.41 ? cm/s PS ? 1.15 ?MoM ED ? 6.82 ?cm/s S / D ?5.93 CPR PI ? 1.26 ? 2% ?Ebbing GROWTH OVERVIEW ----- Exam date ? GA ?BPD (mm) ? HC (mm) ?AC (mm) ?FL (mm) ?HL (mm) ?EFW (g) 08/16/2024 ?26w 0d ?65.1 ?50% ?233.7 ? 11% ?197.9 ?7% ?49.5 ?57% ?44.8 ?63% ?813 ?20% COMMENT ----- Patient's name and date of were verified by the reporting coordinator prior to the exam. IMPRESSION ----- Viable at 27 weeks gestation complicated by early onset growth restriction with abnormal umbilical artery Dopplers. Patient had low risk NIPT. Normal amniotic fluid volume Umbilical artery Doppler studies are abnormal. There is increased resistance in umbilical artery with sustained diastolic flow. This is a stable finding. Ultrasound findings were reviewed with patient. We reviewed the presence of growth restriction and discussed the management of growth restriction. The abnormal umbilical artery Doppler suggest that a placental abnormality may be at least partially responsible for the growth restriction. Abnormal Dopplers increase the risk of adverse outcome. There is also increased risk of gestational hypertension/preeclampsia. Early delivery is typically recommended with growth restriction particular with abnormal umbilical Doppler studies. Exact timing of delivery cannot be determined at this time. Questions were addressed. Recommendations: -Follow-up growth ultrasound scheduled in 1 week -Weekly umbilical artery Doppler studies scheduled -Twice-weekly modified biophysical profiles will be scheduled starting at 28 weeks gestation Patient can do her follow-up testing and ultrasounds in the center at [place] if she chooses. Procedure Note Chandler Salas MD - 08/23/2024 STL LIMITED ----- Pat. Name:Pedrito MURPHY Date:08/23/2024 11:15am Pat. NO: [id number] MD:MARY CAMPBELL MD [facility]:Latanya Boss RDMS :1995Age:28 ----- INDICATION ----- Intrauterine Growth Restriction (IUGR) Circumvallate Placenta History of PTL/PTD in Previous , Currently CODING ----- Diagnoses Z3A.27: Weeks of gestation O09.212: Supervision of with history ofpre-term labor O43.112: Circumvallate placenta O36.5920: Maternal care for other known orsuspected poor growth Procedures 38450: Ultrasound, uterus, real time withimage documentation, limited one or more fetuses 59024: Doppler velocimetry, ; umbilicalartery 87389: Doppler velocimetry, ; middle cerebralartery METHOD ----- Transabdominal ultrasound examination ----- Vora . Number of fetuses: 1 DATING ----- GA by prior [id number] w + 0 d WILLIE by prior assessment:11/22/2024 Method of dating:Restore dating from previous exam Assigned:based on stated WILLIE, selected on 08/16/2024 Assigned GA27 w + 0 d Assigned WILLIE:11/22/2024 GENERAL EVALUATION ----- Cardiac activity present. FHR 148 bpm. movements: present.Presentation: breech Placenta: Placental site: posterior Umbilical cord: Cord vessels: 3 vessel cord Amniotic fluid: Amount of AF: normal amount. MVP 4.5 cm. ROSITA 13.2 cm. Q14.5 cm, Q2 2.6 cm, Q3 4.1 cm, Q4 2.0 cm ANATOMY ----- The following structures appear normal: Heart / Thorax Cardiac rhythm. Abdomen Stomach. Bladder. DOPPLER ----- Umbilical Artery: abnormal. Sampling site: midcord PI 1.51 99%Regi RI 0.82 98%Regi PS 52.48 cm/s ED 10.49 cm/s TAmax 29.34 cm/s MD 10.22 cm/s S / D 5.41 >99%Regi Mid Cerebral Artery: normal PI 1.91 47%Bahlmann RI 0.83 67%Bahlmann PS 40.41 cm/s PS 1.15 MoM ED 6.82 cm/s S / D 5.93 CPR PI 1.26 2%Ebbing GROWTH OVERVIEW ----- Exam date GA BPD (mm) HC (mm) AC (mm) FL(mm) HL (mm) EFW (g) 08/16/2024 26w 0d 65.1 50% 233.7 11% 197.9 7%49.5 57% 44.8 63% 813 20% COMMENT ----- Patient's name and date of were verified by the reporting coordinator prior tothe exam. IMPRESSION ----- Viable at 27 weeks gestation complicated by early onset fetalgrowth restriction with abnormal umbilical artery Dopplers. Patient had low risk NIPT. Normal amniotic fluid volume Umbilical artery Doppler studies are abnormal. There is increasedresistance in umbilical artery with sustained diastolic flow. This is a stable finding. Ultrasound findings were reviewed with patient. We reviewed the presenceof growth restriction and discussed the management of growth restriction. The abnormal umbilical artery Doppler suggestthat a placental abnormality may be at least partially responsible for the growth restriction. Abnormal Dopplers increasethe risk of adverse outcome. There is also increased risk of gestational hypertension/preeclampsia. Early delivery istypically recommended with growth restriction particular with abnormal umbilical Doppler studies. Exact timing ofdelivery cannot be determined at this time. Questions were addressed. Recommendations: -Follow-up growth ultrasound scheduled in 1 week -Weekly umbilical artery Doppler studies scheduled -Twice-weekly modified biophysical profiles will be scheduled starting at28 weeks gestation Patient can do her follow-up testing and ultrasounds in the perinatalcenter at [place] if she chooses. Sheila Chang MD US ORDERABLES documented in this encounter Visit Diagnoses Diagnosis Poor growth affecting management of mother in second trimester, fetus 1 of multiple gestation documented in this encounter
--- OUTSIDE RECORDS SUMMARY | 2024-09-18 05:33 | XMS_ITS | Continuity of Care Document ---
Author Organization [facility] Address [address] [place] [address] Phone Care Team Providers Care Pressing Machine Operator Name Role Phone Unavailable Unavailable Unavailable Medications Medication Instructions Dosage Effective Dates (start - stop) Status Comments ibuprofen 800 mg tablet take 1 tablet by oral route 3 times every day with food 800 MG - Active Procedures Procedure Date Limit Oral Evaluation- problem focused N Dental Panoramic Radiographic Image Surgical extr erupted tooth Limit Oral Evaluation- problem focused J Periapical Radiographic, first Image Feb Extraction erupted tooth or exposed root Periapical Radiographic, first Image Nov Dental Bitewings Radiographic, Four Imag es Dental Panoramic Radiographic Image Comprehensive Oral Evaluation 7 Medical Record Payment Advance Directives Directive Yes / No Effective Date File Name No Information Encounters Encounter Description Practice Location Reason(s) For Visit Diagnoses Date Provider Providers Copied on Encounter [facility] , [address], [place], [place], [id number], [place] tel:[phone] [facility] Encounter for dental exam and cleaning w abnormal findings No Information Referring Provider: Farooq Win, [address], [place], [address] . tel:[phone] [facility] , [address], [place], [place], [id number], [place] tel:[phone] [facility] Dental caries on smooth surface penetrating into pulp No Information Referring Provider: Farooq Win, [address] [facility], [place], [address] . tel:[phone] [facility] , [address], [place], [place], [id number], tel:[phone] [facility] Encounter for dental exam and cleaning w abnormal findings No Information [facility] , [address], [place], [place], [id number], tel:[phone] [facility] Encounter for dental exam and cleaning w abnormal findings No Information Referring Provider: Yoseph Ramon, [address] [facility], [place], [address] . tel:[phone] [facility] , [address] [address], [place], [place], [id number], tel:[phone] [facility] [place] Encounter for dental exam and cleaning w abnormal findings Antonio Yuen. [address] [place] [address], [id number]. tel:[phone] Referring Provider: Wilfrid Alvarez, [address] [address], [place], [address] . tel:[phone] [facility] , [address] [address], [place], [place], [id number], tel:[phone] [facility] No Information Lawrence Roberson. [address], [id number], . tel:[phone] Family History Family Member Type Diagnosis Age At Onset No Information Payers Payer name Insurance type Covered libertarian ID Yu dennison(s) [facility] Community Plan MCAID [id number] Social History Type Description Quantity Date Captured [...]
--- OUTSIDE RECORDS SUMMARY | 2024-09-18 05:33 | XMS_ITS | Encounter Summary ---
Author Organization [facility] Address [address] [place] [address] Care Team Providers Care Coal Chute Worker Name Role Phone Unavailable Primary Care Provider Unavailabl e Reason for Referral * Eval and Treat (Emergency) - Closed Specialty Diagnoses / Procedures Referred By Christina diana Referred To Contact Perinatology Diagnoses Poor growth affecting management of mother in second trimester, single or unspecified fetus Procedures AR OFFICE/OUTPATIENT ESTABLISHED MOD MDM 30 MIN AR OFFICE/OUTPATIENT NEW MODERATE MDM 45 MINUTES Cleveland Bass MD [address] [place] [address] [facility] [place] [address] [facility] [address] [place] [address] Referral ID Status Reason Start Date Expiration Date Visits Requested Visits Authorized [id number] Closed Performing Department to Schedule 08/10/2024 08/10/2025 1 1 ARCH MICROBIOLOGIST Encounter Details Date Type Department Care Team (Late st Contact Info) Description 08/10/2024 Orders Only [facility] Ground Floor [address] [place] [address] Cleveland Bass MD [address] [place] [address] Poor growth affecting management of mother in second trimester, single or unspecified fetus (Primary Dx) Social History Tobacco Use Types Packs/Day Years Used Date Smoking Tobacco: Never Assessed Sex and Gender Information Value Date Recorded Sex Assigned at Not on file Gender Identity Not on file Sexual Orientation Not on file documented as of this encounter Plan of Treatment Scheduled Referrals Name Type Priority Associated Diagnoses Orde r Schedule AMB REFERRAL TO PERINATOLOGY Outpatient Referral Routine Poor growth affecting management of mother in second trimester, single or unspecified fetus Ordered: 08/10/2024 documented as of this encounter Visit Diagnoses Diagnosis Poor growth affecting management of mother in second trimester, single or unspecified fetus- Primary documented in this encounter
--- OUTSIDE RECORDS SUMMARY | 2024-09-18 05:33 | XMS_ITS | Encounter Summary ---
Author Organization [facility] Address [address] [place] [address] Care Team Providers Care Family Law Mediator Name Role Phone Unavailable Primary Care Provider Unavailabl e Reason for Visit * Reason Comments Ultrasound * Eval and Treat (Emergency) - Closed Specialty Diagnoses / Procedures Referred By Christina t Referred To Contact Perinatology Diagnoses Poor growth affecting management of mother in second trimester, single or unspecified fetus Procedures PA OFFICE/OUTPATIENT ESTABLISHED MOD MDM 30 MIN PA OFFICE/OUTPATIENT NEW MODERATE MDM 45 MINUTES Cleveland Bass MD [address] [place] [address] [facility] Medicine [place] [email or web address] [place] [address] Referral ID Status Reason Start Date Expiration Date Visits Requested Visits Authorized [id number] Closed Performing Department to Schedule 08/10/2024 08/10/2025 1 1 Encounter Details Date Type Department Care Team (Latest Contact Info) Description 08/16/2024 2:45 PM MIXED LIVESTOCK FARMER Initial [facility] Maternal and Medicine ? [place] [address] [place] [address] Sheila Chang MD [address] [place] [address] Poor growth affecting management of mother in second trimester, single or unspecified fetus (Primary Dx); 26 weeks gestation of Social History Tobacco Use Types Packs/Day Years Used Date Smoking Tobacco: Never Assessed Sex and Gender Information Value Date Recorded Sex Assigned at Not on file Gender Identity Not on file Sexual Orientation Not on file documented as of this encounter Last Filed Vital Signs Vital Sign Reading Time Taken Comments Blood Pressure 113/66 08/16/2024 3:27 PM MIXED LIVESTOCK FARMER Pulse 90 08/16/2024 3:27 PM MIXED LIVESTOCK FARMER Temperature - - Respiratory Rate - - Oxygen Saturation - - Inhaled Oxygen Concentration - - Weight 79.4 kg (175 lb) 08/16/2024 3:27 PM MIXED LIVESTOCK FARMER Height 154.9 cm (5' 1 ) 08/16/2024 3:27 PM MIXED LIVESTOCK FARMER Body Mass Index 33.07 08/16/2024 3:27 PM MIXED LIVESTOCK FARMER documented in this encounter Progress Notes * Sheila Chang MD - 08/16/2024 4:45 PM CST Marnie Jones [id number] 28 y.o. [facility] Consultation Finding: growth restriction, 20th%ile, abdominal circumference 7th%ile. Elevated UAD Consult requested by: Cleveland Bass MD HPI: Marnie Jones is a 28 y.o. No obstetric history on file. at Unknown who underwent ultrasound at the [facility]. During the visit, growth restriction was identified and the patient was offered and accepted M consultation about thesefindings. The patient reports the following history relevant to the ultrasound findings: her first child was born small, but was with a different partner. She was born early. Her current partner and father of the baby doesn't know how much he weighed but is of normal stature and size. The following conditions in the patient's medical history were not addressed during this consultation: none Obstetric review of systems: She denies vaginal bleeding, contractions and leakage of fluid. She denies headache, blurry vision, RUQ/epigastric pain, NV She reports movement. OB History No obstetric history on file. Physical Exam BP 113/66 Pulse 90 Ht 5' 1 (1.549 m) Wt 79.4 kg (175 lb) BMI 33.07 kg/m?? General: appearance: alert, in no distress Abdomen: non-distended. Gravid The remainder of the exam was deferred due to the focused nature of the visit. Imaging Results for orders placed during the hospital encounter of 11/27/24 US OB DETAIL SINGLE GEST Impression Vora @ 26w 0d complicated by suspected FGR. - The biometry is now LAGGING dates with the EFW at the 20% percentile, but the AC at the 7th percentile. - Amniotic fluid indices are within normal limits. - THe placenta is posterior with a normal cord insertion and no evidence of low lying or placenta previa. - Limited anatomy is unremarkable. - The umbilical artery Doppler velocimetry is elevated but without evidence of AEDF/REDF. The patient had a care consultation following the ultrasound. Repeat umbilical artery Doppler velocimetry in 1 week and growth every 2 weeks. Thank you for allowing us to participate in the care of this patient. Counseling: Today???s ultrasound was notable for an estimated weight suggestive of growth restriction. growth restriction (FGR) is defined as estimated weight or abdominal circumference less than the 10th percentile for gestational age or by a fetus failing to achieve its true growth potential. There are several reasons why a fetus may measure less than the 10th percentile, including constitutional small size, uteroplacental insufficienciy, infection and/or aneuploidy. I explained that the majority of fetuses diagnosed with FGR towards the end of the third trimester will either beconstitutionally small or have growth restriction due to placental insufficiency. Conditions that are more likely to be present in early onset growth restriction (before 32 weeks) include aneuploidy or other genetic disorders, malformations, and infection. Parental characteristics and ethnicity can influence size, and that a majority of fetuses between the 5th and the 10th percentile are constitutionally small (a diagnosis made after delivery). Signs of placental insufficiency, such as preeclampsia, oligohydramnios, and abnormal biophysical profile or nonstress testing would indicate that a small fetus is more likely to be growth restricted. Finally, the two most valuable tests in differentiating constitutionally small fetuses from growth restricted small fetuses are interval growth over time and umbilical artery velocitometry. Doppler velocimetry is a valuable tool in assessing small fetuses, and has been associated with a decreased mortality in small fetuses. Normal umbilical artery doppler findings are very reassuring and imply a normally functioning placenta, making growth restriction from placental insufficiency less likely. Inthe setting of reassuring growth over time, normal fluid and normal umbilical artery Doppler studies, the overall risk of complications is low. Estimated weight less than the 3rd percentile is independently associated with an increased risk of adverse outcomes, with 4 to 7-fold risk of stillbirth in comparison with fetuses between 5-10%ile. Amniocentesis with chromosomal microarray should be considered when any unexplained FGR is identified before 32 weeks gestation, or when malformations and/or polyhydramnios are present regardless of gestational age. For patients who undergo amniocentesis, CMV PCR should also be ordered. Hypertensive disorders of are more frequent in FGR of all gestational ages and patients should be monitored closely for preeclampsia and related conditions. Timing of delivery is dependent on estimated weight, doppler studies, testing, and maternal status. TOBACCO COUNSELING She is not a tobacco/nicotine user. Impression: 28 y.o. No obstetric history on file. at Unknown with complicated by growth restriction with elevated UAD Plan: - Genetic testing and amniocentesis declined today. - Follow up ultrasound : repeat Dopplers in 1 week. Check growth in 2 weeks. - testing twice weekly at 28 weeks - All routine care and delivery with Dr. Bass - Delivery planning to be determined at a future growth ultrasound - [facility] will continue to provide consultative assistance for this condition through the [facility]. Thank you for the opportunity to participate in the care of this patient. Complexity of medical decision making: Moderate due to with the additional complications mentioned above. On the day of the visit, I spent 30 minutes providing care to this patient including Preparing to see the patient, Obtaining and/or reviewing separately obtained history, Performing a medically appropriate examination and/or evaluation, Counseling and educating the patient/family/caregiver, Ordering medications, tests or procedures, Documenting clinical information in the medical record, and Carecoordination (not separately reported). Sheila Chang MD [facility] Maternal Medicine D LIVESTOCK FARMER documented in this encounter Plan of Treatment Scheduled Referrals Name Type Priority Associated Diagnoses Orde r Schedule AMB REFERRAL TO PERINATOLOGY Outpatient Referral Routine Poor growth affecting management of mother in second trimester, single or unspecified fetus Ordered: 08/10/2024 documented as of this encounter Visit Diagnoses Diagnosis Poor growth affecting management of mother in second trimester, single or unspecified fetus- Primary 26 weeks gestation of state, incidental documented in this encounter
--- OUTSIDE RECORDS SUMMARY | 2024-09-18 05:33 | XMS_ITS | Encounter Summary ---
Author Organization [facility] Address [address] [place] [address] Care Team Providers Care Transition Advisor Name Role Phone Unavailable Primary Care Provider Unavailabl e Encounter Details Date Type Department Care Team (Late st Contact Info) Description 08/22/2024 External Device Data STL ABSTRACTION Provider, Abstract NO ADDRESS ON FILE Social History Tobacco Use Types Packs/Day Years Used Date Smoking Tobacco: Never Assessed Sex and Gender Information Value Date Recorded Sex Assigned at Not on file Gender Identity Not on file Sexual Orientation Not on file documented as of this encounter Plan of Treatment Not on file documented as of this encounter Visit Diagnoses Not on filedocumented in this encounter
--- OUTSIDE RECORDS SUMMARY | 2024-09-18 05:33 | XMS_ITS | Encounter Summary ---
Author Organization [facility] Address [address] [place] [address] Care Team Providers Care Certified Health Education Specialist Name Role Phone Unavailable Primary Care Provider Unavailabl e Reason for Referral * Radiology Services (Routine) - Closed Specialty Diagnoses / Procedures Referred By Contac t Referred To Contact Diagnoses Abnormal head circumference in relation to growth and age standard Procedures US OB DETAIL SINGLE GEST US OB 14+ WKS SINGLE GEST K.O. to schedule - MV patient? Cleveland Bass MD [address] [place] [address] [facility] H[facility] Ground Fl [address] [place] [address] Referral ID Status Reason Start Date Expiration Date Visits Re quested Visits Authorized [id number] Closed 08/09/2024 09/19/2024 1 1 OR BACKUP ADMINISTRATOR Reason for Visit * Radiology Services (Routine) - Closed Specialty Diagnoses / Procedures Referred By Contac t Referred To Contact Diagnoses Abnormal head circumference in relation to growth and age standard Procedures US OB DETAIL SINGLE GEST US OB 14+ WKS SINGLE GEST K.O. to schedule - MV patient? Cleveland Bass MD [address] [place] [address] [facility] And Hc [facility] Fl [address] [place] [address] Referral ID Status Reason Start Date Expiration Date Visits Re quested Visits Authorized [id number] Closed 08/09/2024 09/19/2024 1 1 Encounter Details Date Type Department Care Team (Late st Contact Info) Description 08/16/2024 1:30 PM SENIOR BACKUP ADMINISTRATOR - 08/16/2024 11:59 PM SENIOR BACKUP ADMINISTRATOR Hospital Encounter [facility] Ground [facility] [address] [place] [address] [place] [address] Cleveland Bass MD [address] [facility] [place] [address] Discharge Disposition: Home or Self Care Social [...] Priority Date/Time Associated Diagnosis Comments US OB DETAIL SINGLE GEST Routine 08/16/2024 2:58 PM SENIOR BACKUP ADMINISTRATOR Abnormal head circumference in relation to growth and age standard documented in this encounter Results * US OB DETAIL SINGLE GEST (08/16/2024 2:58 PM SENIOR BACKUP ADMINISTRATOR) Anatomical Region Laterality Modality Pelvis Ultrasound 08/16/2024 1:58 PM SENIOR BACKUP ADMINISTRATOR Narrative 08/16/2024 2:56 PM SENIOR BACKUP ADMINISTRATOR STL COMP ----- Pat. Name: MARNIE JONES Study Date: 08/16/2024 1:58pm Pat. NO: [id number] Referring ??MD: Site: [facility] Soda Dialyzer: Clair Hicks RDMS : 1995 Age: 28 ----- INDICATION ----- Anatomy Survey ? low risk NIPT Intrauterine Growth Restriction (IUGR) Circumvallate Placenta History of PTL/PTD in Previous , ?36 weeks PPROM Currently CODING ----- Diagnoses ? Z3A.26: Weeks of gestation ?O09.212: Supervision of with history of pre-term labor ?O43.112: Circumvallate placenta ?O36.5920: Maternal care for other known or suspected poor growth ?Z36.3: Encounter for screening for malformations Procedures ?72917: Ultrasound, uterus, real time with image documentation, and maternal evaluation ?plus detailed anatomic examination, transabdominal approach ?10193: Doppler velocimetry, ; umbilical artery ?84197: Doppler velocimetry, ; middle cerebral artery METHOD ----- Transabdominal ultrasound examination ----- Vora . Number of fetuses: 1 DATING ----- Method of dating: based on stated WILLIE GA by prior assessment 26 w + 0 d WILLIE by prior assessment: 11/22/2024 Ultrasound examination on: 08/16/2024 GA by U/S based upon: AC, BPD, EFW, Femur, HC GA by U/S 25 w + 4 d WILLIE by U/S: 11/25/2024 Assigned: based on stated WILLIE, selected on 08/16/2024 Assigned GA 26 w + 0 d Assigned WILLIE: 11/22/2024 BIOMETRY ----- BPD ?65.1 ? mm ? 26w 2d ? 50% ?Hadlock OFD ?81.0 ? mm ? 26w 2d ? 59% ?Ksenia HC ? 233.7 ?mm ? 25w 3d ? 11% ?Hadlock Cerebellum tr ?29.5 ? mm ? 27w 1d ? 58% ?Justin AC ? 197.9 ?mm ? 24w 3d ? 7% ?Hadlock Femur ?49.5 ? mm ? 26w 5d ? 57% ?Hadlock Humerus ?44.8 ? mm ? 26w 4d ? 63% ?Ksenia HC / AC ?1.18 ?83% ? Nicolaides Weight Calculation: EFW ?813 ? g ?25w 2d ?20% ?Hadlock EFW (lb,oz) ?1 lb 13 ? oz EFW by ?Hadlock ([id number]) Head / Face / Neck Biometry: Emergency Doctor ? 3.6 ? mm CM ? 5.0 ? mm ? 14% ?Nicolaides Inner IOD ?16.5 ?mm Nasal ?8.2 ?mm bone Extremities / Bony Struc Biometry: FL / BPD ?0.76 FL / HC ? 0.21 FL / AC ? 0.25 GENERAL EVALUATION ----- Cardiac activity present. FHR 137 bpm. movements: present. Presentation: cephalic Placenta: Placental site: posterior, circumvallate Umbilical cord: Cord vessels: 3 vessel cord. Insertion site: placental insertion: normal Amniotic fluid: Amount of AF: normal amount. MVP 4.5 cm. ROSITA 12.7 cm. Q1 3.1 cm, Q2 3.1 cm, Q3 4.5 cm, Q4 2.1 cm ANATOMY ----- The following structures appear normal: Head / Neck ? Cranium. Lateral ventricles. Choroid plexus. Midline falx. Cavum septi pellucidi. Cerebellum. Cisterna ?magna. Face ?Lips. Profile. Nose. Palate. Orbits. Heart / Thorax ?4-chamber view. RVOT view. LVOT view. 3-vessel view. 9-enztkv-qjhghth view. Situs. Aortic arch view. ?Ductal arch view. Superior vena cava. Inferior vena cava. High short axis view. Cardiac rhythm. ?Diaphragm. Abdomen ? Stomach. Kidneys. Bladder. Spine ? Cervical spine. Thoracic spine. Lumbar spine. Sacral spine. Extremities / ? Arms. Right hand. Left hand. Legs. Right foot. Left foot. Skeleton DOPPLER ----- Umbilical Artery: PI ? 1.47 ?97% ?Regi RI ? 0.81 ?96% ?Regi PS ? 54.00 ?cm/s ED ? 12.58 ?cm/s TAmax ?30.53 ?cm/s MD ? 11.56 ?cm/s S / D ?5.24 ?99% ?Regi HR ? 146 ?bpm Mid Cerebral Artery: PI ? 2.28 ? 87% ?Bahlmann RI ? 0.88 ? 90% ?Bahlmann PS ? 36.20 ? cm/s PS ? 1.08 ?MoM ED ? 4.46 ?cm/s TAmax ?13.90 ? cm/s MD ? 4.32 ?cm/s S / D ?8.12 CPR PI ? 1.55 ? 15% ?Ebbing MATERNAL STRUCTURES ----- Right Ovary ? Suboptimal Left Ovary ?Suboptimal GROWTH OVERVIEW ----- Exam date ? GA ?BPD (mm) ? HC (mm) ?AC (mm) ?FL (mm) ?HL (mm) ?EFW (g) 08/16/2024 ?26w 0d ?65.1 ?50% ?233.7 ? 11% ?197.9 ?7% ?49.5 ?57% ?44.8 ?63% ?813 ?20% COMMENT ----- Patient's name and date of were verified by the glass driller before the exam IMPRESSION ----- Vora @ 26w 0d complicated by suspected [...] participate in the care of this patient. Procedure Note Sheila Chang MD - 08/16/2024 STL COMP ----- Pat. Name:Pedrito JONES Date:08/16/2024 1:58pm Pat. NO: [id number] MD: [facility]Clair Hicks RDMS :1995Age:28 ----- INDICATION ----- Anatomy Survey low risk NIPT Intrauterine Growth Restriction (IUGR) Circumvallate Placenta History of PTL/PTD in Previous , 36 weeks PPROM Currently CODING ----- Diagnoses Z3A.26: Weeks of gestation O09.212: Supervision of with history ofpre-term labor O43.112: Circumvallate placenta O36.5920: Maternal care for other known orsuspected poor growth Z36.3: Encounter for screening formalformations Procedures 54068: Ultrasound, uterus, real time withimage documentation, and maternal evaluation plus detailed anatomic examination,transabdominal approach 02746: Doppler velocimetry, ; umbilicalartery 68645: Doppler velocimetry, ; middle cerebralartery METHOD ----- Transabdominal ultrasound examination ----- Vora . Number of fetuses: 1 DATING ----- Method of dating:based on stated WILLIE GA by prior [id number] w + 0 d WILLIE by prior assessment:11/22/2024 Ultrasound examination on:08/16/2024 GA by U/S based upon:AC, BPD, EFW, Femur, HC GA by U/S25 w + 4 d WILLIE by U/S:11/25/2024 Assigned:based on stated WILLIE, selected on 08/16/2024 Assigned GA26 w + 0 d Assigned WILLIE:11/22/2024 BIOMETRY ----- BPD 65.1 mm 26w 2d50% Hadlock OFD 81.0 mm 26w 2d59% Ksenia HC 233.7 mm 25w 3d11% Hadlock Cerebellum tr 29.5 mm 27w 1d58% Justin AC 197.9 mm 24w 3d7% Hadlock Femur 49.5 mm 26w 5d57% Hadlock Humerus 44.8 mm 26w 4d63% Ksenia HC / AC 1.18 83%Nicolaides Weight Calculation: EFW 813 g 25w 2d 20%Hadlock EFW (lb,oz) 1 lb 13 oz EFW by Hadlock ([id number]) Head / Face / Neck Biometry: Emergency Doctor 3.6 mm CM 5.0 mm 14%Nicolaides Inner IOD 16.5 mm Nasal 8.2 mm bone Extremities / Bony Struc Biometry: FL / BPD 0.76 FL / HC 0.21 FL / AC 0.25 GENERAL EVALUATION ----- Cardiac activity present. FHR 137 bpm. movements: present.Presentation: cephalic Placenta: Placental site: posterior, circumvallate Umbilical cord: Cord vessels: 3 vessel cord. Insertion site: placentalinsertion: normal Amniotic fluid: Amount of AF: normal amount. MVP 4.5 cm. ROSITA 12.7 cm. Q13.1 cm, Q2 3.1 cm, Q3 4.5 cm, Q4 2.1 cm ANATOMY ----- The following structures appear normal: Head / Neck Cranium. Lateral ventricles. Choroid plexus.Midline falx. Cavum septi pellucidi. Cerebellum. Cisterna magna. Face Lips. Profile. Nose. Palate. Orbits. Heart / Thorax 4-chamber view. RVOT view. LVOT view. 3-vesselview. 9-nvijos-yjvpzkl view. Situs. Aortic arch view. Ductal arch view. Superior vena cava. Inferiorvena cava. High short axis view. Cardiac rhythm. Diaphragm. Abdomen Stomach. Kidneys. Bladder. Spine Cervical spine. Thoracic spine. Lumbar spine.Sacral spine. Extremities / Arms. Right hand. Left hand. Legs. Right foot.Left foot. Skeleton DOPPLER ----- Umbilical Artery: PI 1.47 97%Regi RI 0.81 96%Regi PS 54.00 cm/s ED 12.58 cm/s TAmax 30.53 cm/s MD 11.56 cm/s S / D 5.24 99%Regi HR 146 bpm Mid Cerebral Artery: PI 2.28 87%Bahlmann RI 0.88 90%Bahlmann PS 36.20 cm/s PS 1.08 MoM ED 4.46 cm/s TAmax 13.90 cm/s MD 4.32 cm/s S / D 8.12 CPR PI 1.55 15%Ebbing MATERNAL STRUCTURES ----- Right Ovary Suboptimal Left Ovary Suboptimal GROWTH OVERVIEW ----- Exam date GA BPD (mm) HC (mm) AC (mm) FL(mm) HL (mm) EFW (g) 08/16/2024 26w 0d 65.1 50% 233.7 11% 197.9 7%49.5 57% 44.8 63% 813 20% COMMENT ----- Patient's name and date of were verified by the glass driller beforethe exam IMPRESSION ----- Vora @ 26w 0d complicated by suspected FGR. - The biometry is now LAGGING dates with the EFW at the 20%percentile, but the AC at the 7th percentile. - Amniotic fluid indices are within normal limits. - THe placenta is posterior with a normal cord insertion and no evidenceof low lying or placenta previa. - Limited anatomy is unremarkable. - The umbilical artery Doppler velocimetry is elevated but withoutevidence of AEDF/REDF. The patient had a care consultation following the ultrasound. Repeat umbilical artery Doppler velocimetry in 1 week and growth every 2weeks. Thank you for allowing us to participate in the care of this patient. Cleveland Bass MD US ORDERABLES documented in this encounter Visit Diagnoses Diagnosis Abnormal head circumference in relation to growth and age standard documented in this encounter
--- OUTSIDE RECORDS SUMMARY | 2024-09-18 05:33 | XMS_ITS | Clinical Summary ---
Author Organization [facility] Address [address] [place] [address] Phone Care Team Providers Care Warp Clamper Name Role Phone Unavailable Primary Care Provider Unavailabl e Active Problems Problem Noted Date Diagnosed Date Poor growth affecting management of mother in second trimester 08/16/2024 Encounters Date Type Department Care Team Description 08/23/2024 10:00 AM UTILIZATION SPECIALIST - 08/23/2024 11:59 PM UTILIZATION SPECIALIST Hospital Encounter [facility] Maternal and Ground Floor [facility] [address] [place] [address] Sheila Chang MD Discharge Disposition: Home or Self Care 08/22/2024 External Device Data STL ABSTRACTION Provider, Abstract 08/16/2024 2:45 PM UTILIZATION SPECIALIST Initial [facility] Maternal and Medicine ? [place] [address] [facility] [address] [place] [address] Sheila Chang MD Poor growth affecting management of mother in second trimester, single or unspecified fetus (Primary Dx); 26 weeks gestation of 08/16/2024 1:30 PM UTILIZATION SPECIALIST - 08/16/2024 11:59 PM UTILIZATION SPECIALIST Hospital Encounter [facility] Maternal and Ground Floor [address] [place] [address] [place] [phone] Mary Campbell MD Discharge Disposition: Home or Self Care 08/10/2024 Orders Only [facility] and Ground Floor [address] [place] [address] [place] [address] Mary Campbell MD Poor growth affecting management of mother in second trimester, single or unspecified fetus (Primary Dx) from Last 3 Months Social History Tobacco Use Types Packs/Day Years Used Date Smoking Tobacco: Never Assessed Sex and Gender Information Value Date Recorded Sex Assigned at Not on file Gender Identity Not on file Sexual Orientation Not on file Last Filed Vital Signs Vital Sign Reading Time Taken Comments Blood Pressure 113/66 08/16/2024 3:27 PM UTILIZATION SPECIALIST Pulse 90 08/16/2024 3:27 PM UTILIZATION SPECIALIST Temperature - - Respiratory Rate - - Oxygen Saturation - - Inhaled Oxygen Concentration - - Weight 79.4 kg (175 lb) 08/16/2024 3:27 PM UTILIZATION SPECIALIST Height 154.9 cm (5' 1 ) 08/16/2024 3:27 PM UTILIZATION SPECIALIST Body Mass Index 33.07 08/16/2024 3:27 PM UTILIZATION SPECIALIST Plan of Treatment Health Maintenance Due Date Last Done Comments HEPATITIS B VACCINES (1 of 3 - 19+ 3-dose series) 12/30/2014 CERVICAL CANCER SCREENING 08/06/2020 08/06/2017 INFLUENZA VACCINE (#1) 2024 DTAP/TDAP/TD VACCINES (3 - T d or Tdap) 06/25/2030 06/25/2020, 02/18/2017 HPV VACCINES Aged Out No longer eligi ble based on patient's age to complete this topic PNEUMOCOCCAL VACCINE 0-64 YEARS Aged Out No longer eligible b ased on patient's age to complete this topic Procedures Procedure Name Priority Date/Time Associated Diagnosis Comments US OB LTD+UMB ART DOPPLER Routine 08/23/2024 10:31 AM UTILIZATION SPECIALIST Poor growth affecting management of mother in second trimester, fetus 1 of multiple gestation US OB DETAIL SINGLE GEST Routine 08/16/2024 2:58 PM UTILIZATION SPECIALIST Abnormal head circumference in relation to growth and age standard from Last 3 Months Results * US OB LTD+UMB ART DOPPLER (08/23/2024 10:31 AM UTILIZATION SPECIALIST) Anatomical Region Laterality Modality Pelvis Ultrasound 08/23/2024 11:1 5 AM UTILIZATION SPECIALIST Narrative 08/23/2024 10:40 AM UTILIZATION SPECIALIST STL LIMITED ----- Pat. Name: MARNIE JONES Study Date: 08/23/2024 11:15am Pat. NO: [id number] Referring ??MD: MARY CAMPBELL MD Site: [facility] Spoilage Worker: Latanya Boss RDMS : 1995 Age: 28 ----- INDICATION ----- Intrauterine Growth Restriction (IUGR) Circumvallate Placenta History of PTL/PTD in Previous , Currently CODING ----- Diagnoses ? Z3A.27: Weeks of gestation ?O09.212: Supervision of with history of pre-term labor ?O43.112: Circumvallate placenta ?O36.5920: Maternal care for other known or suspected poor growth Procedures ?85578: Ultrasound, uterus, real time with image documentation, limited one or more fetuses ?57960: Doppler velocimetry, ; umbilical artery ?12915: Doppler velocimetry, ; middle cerebral artery METHOD [...] Artery: normal PI ? 1.91 ? 47% ?Sloancourt RI ? 0.83 ? 67% ?Bahlmann PS ? 40.41 ? cm/s PS ? [...] and date of were verified by the supervisor bindery prior to the exam. IMPRESSION ----- Viable [...] testing and ultrasounds in the center at [facility] if she chooses. Procedure Note Chandler Salas MD - 08/23/2024 STL LIMITED ----- Pat. Name:Pedrito JONES Date:08/23/2024 11:15am Pat. NO: [id number] MD:MARY CAMPBELL MD [facility]Latanya Boss RDMS :1995Age:28 ----- INDICATION ----- Intrauterine Growth Restriction (IUGR) Circumvallate Placenta History of PTL/PTD in Previous , Currently CODING ----- Diagnoses Z3A.27: Weeks of gestation O09.212: Supervision of with history ofpre-term labor O43.112: Circumvallate placenta O36.5959: Maternal care for other known orsuspected poor growth Procedures 14082: Ultrasound, uterus, real time withimage documentation, limited one or more fetuses 70064: Doppler velocimetry, ; umbilicalartery 33282: Doppler velocimetry, ; middle cerebralartery METHOD ----- Transabdominal ultrasound examination ----- Vora . Number of fetuses: 1 DATING ----- GA by prior [id number] w + 0 d WILLIE by prior [...] and date of were verified by the supervisor bindery prior tothe exam. IMPRESSION ----- Viable at [...] testing and ultrasounds in the perinatalcenter at [facility] if she chooses. Sheila Chang MD US ORDERABLES * US OB DETAIL SINGLE GEST (08/16/2024 2:58 PM UTILIZATION SPECIALIST) Anatomical Region Laterality Modality Pelvis Ultrasound 08/16/2024 1:58 PM UTILIZATION SPECIALIST Narrative 08/16/2024 2:56 PM UTILIZATION SPECIALIST STL COMP ----- Pat. Name: MARNIE JONES Study Date: 08/16/2024 1:58pm Pat. NO: [id number] Referring ??MD: Site: [facility] Spoilage Worker: Clair Hicks RDMS : 1995 Age: 28 [...] ?Z36.3: Encounter for screening for malformations Procedures ?56021: Ultrasound, uterus, real time with image documentation, and maternal evaluation ?plus detailed anatomic examination, transabdominal approach ?79255: Doppler velocimetry, ; umbilical artery ?92142: Doppler velocimetry, ; middle cerebral artery METHOD [...] lb 13 ? oz EFW by ?Hadlock ([id number]) Head / Face / Neck Biometry: Cambering Machine Operator ? 3.6 ? mm CM ? 5.0 [...] view. RVOT view. LVOT view. 3-vessel view. 9-hjvxbc-pddeksk view. Situs. Aortic arch view. ?Ductal arch [...] 87% ?Bahlmann RI ? 0.88 ? 90% ?Bahann PS ? 36.20 ? cm/s PS ? [...] and date of were verified by the supervisor bindery before the exam IMPRESSION ----- Vora @ [...] Pat. Name:Pedrito JONES Date:08/16/2024 1:58pm Pat. NO: [id number] MD: [facility]Clair Hicks RDMS :1995Age:28 ----- INDICATION ----- Anatomy Survey low risk NIPT Intrauterine Growth Restriction (IUGR) Circumvallate Placenta History of PTL/PTD in Previous , 36 weeks PPROM Currently CODING ----- Diagnoses Z3A.26: Weeks of gestation O09.212: Supervision of with history ofpre-term labor O43.112: Circumvallate placenta O36.5920: Maternal care for other known orsuspected poor growth Z36.3: Encounter for screening formalformations Procedures 37598: Ultrasound, uterus, real time withimage documentation, and maternal evaluation plus detailed anatomic examination,transabdominal approach 09734: Doppler velocimetry, ; umbilicalartery 21658: Doppler velocimetry, ; middle cerebralartery METHOD ----- Transabdominal ultrasound examination ----- Vora . Number of fetuses: 1 DATING ----- Method of dating:based on stated WILLIE GA by prior w + 0 d WILLEI by prior assessment:11/22/2024 Ultrasound examination on:08/16/2024 GA [...] 1 lb 13 oz EFW by Hadlock ([id number]) Head / Face / Neck Biometry: Cambering Machine Operator 3.6 mm CM 5.0 mm 14%Nicolaides Inner [...] 4-chamber view. RVOT view. LVOT view. 3-vesselview. 4-nabqld-qjcgxbw view. Situs. Aortic arch view. Ductal arch [...] and date of were verified by the supervisor bindery beforethe exam IMPRESSION ----- Vora @ 26w [...] participate in the care of this patient. Mary Campbell MD US ORDERABLES from Last 3 Months
== END 2024-09-11 04:44 | disposition home or self-care (01) ==
PROVIDERS: Emergency Provider Emergency Medicine
DX: I47.10 Supraventricular tachycardia, unspecified (principal); E87.6 Hypokalemia; E83.42 Hypomagnesemia; F17.210 Nicotine dependence, cigarettes, uncomplicated
CPT/HCPCS: 36415; 80053; 83690; 83735; 85025; 85610; 85730; 93005; 96361; 96365; 99284; A9270; J3475; J7030

== ENCOUNTER 2024-10-25 18:02 | Observation (INO) | payer OTHER, SELFPAY ==
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
--- OUTSIDE RECORDS SUMMARY | 2024-10-25 17:57 | XMS_ITS | Data Portability ---
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 Plan of Treatment Reminders Order Date Submit Date Provider Last Modified By Organization Details Last Modified Time Details Appointments OB ROUTINE 2024 04:00P Lorena CAMPBELL MD Not available Not available Not available INDUCTION 2024 12:00A Lorena CAMPBELL MD Not available Not available Not available OB ROUTINE 2024 04:00P Lorena CAMPBELL MD Not available Not available Not available OB ROUTINE 2024 04:00P Lorena CAMPBELL MD Not available Not available Not available OB ROUTINE 2024 04:00P Lorena CAMPBELL MD Not available Not available Not available Lab iron + TIBC + ferritin, serum 2023 024 [facility] (Lab), [address], [place], [address], 08/31/2024 11:33:26 Referral None recorded. Procedures None recorded. Surgeries None recorded. Imaging US, obstetric , follow-up 2023 [email or web address], [address], [place], [address], 08/09/2024 21:16:39 US, doppler, umbilical artery velocimet ry 2023 024 [email or web address] [facility], [address], [place], [address], 08/09/2024 21:16:39 Medication Orders valacyclo vir 500 mg tablet 2024 025 [email or web address] [id number], [address], [place], [place], [id number], 10/11/2024 23:07:24 Patient TargetsNo targets recorded. Patient InstructionsNo instructions recorded. Reason for Referral None Reported. Results Created Date Observation Date Name Description Value Unit Range Abnormal Flag Note LastModifiedBy Organization Detail LastModifiedTime 08/30/20 24 08/30/2024 HEMOG LOBIN (HGB) HGB 10.0 g/dL (based on docume nted legal sex) 11.6-1 5.4 low Not Available [facility] (Lab) [address], [place], [address], 08/31/2024 11:33:25 08/30/20 24 08/30/2024 HEMAT OCRIT (HCT) HCT 31.7 % (based on docume nted legal sex) 34.0-4 5.0 low Not Available [facility] (Lab) [address], [place], [address], 08/31/2024 11:33:25 08/30/20 24 08/30/2024 GTT - GESTA AUGUSTINE Linh DOMINGO N, ACOG OB glucose, 1 hour screen 90 mg/dL 70-135 Not Available [facility] (Lab) [address], [place], [address], 08/31/2024 11:33:25 08/30/20 24 08/30/2024 LIBIA TIN / IRON / TRANS LIBIA N / TIBC iron 45 ug/dL 40-170 Not Available [facility] (Lab) [address] [place], [address], 08/31/2024 11:33:26 08/30/20 24 08/30/2024 LIBIA TIN / IRON / TRANS LIBIA N / TIBC transferrin 394 mg/dL 200-36 0 high Not Available [facility] (Lab) [address], [place], [address], 08/31/2024 11:33:26 08/30/20 24 08/30/2024 LIBIA TIN / IRON / TRANS LIBIA N / TIBC ferritin 7.9 NG/mL 8.0-25 2.0 low Not Available [facility] (Lab) [address], [place], [address], 08/31/2024 11:33:26 08/30/20 24 08/30/2024 LIBIA TIN / IRON / TRANS LIBIA N / TIBC TIBC 552 ug/dL 250-45 0 high Not Available [facility] (Lab) [address], [place], [address], 08/31/2024 11:33:26 08/30/20 24 08/30/2024 LIBIA TIN / IRON / TRANS LIBIA N / TIBC iron saturation 8 % 20-55 low Not Available [facility] (Lab) [address], [place], [address], 08/31/2024 11:33:26 08/30/20 24 08/30/2024 HIV 1/2 ANTIG EN/AN TIBOD Y, REFLE X CONFI RMATI ON HIV antigen/anti body Nonrea ctive nonrea ctive HIV-1 antig en and HIV-1 /HIV- 2 antib odies were not detec roxane. No labor atory evide nce of HIV infec tion. Not Available [facility] (Lab) [address], [place], [address], 08/31/2024 11:33:26 08/30/20 24 08/30/2024 RPR SCREE N, REFLE X TITER /CONF IRMAT ION RPR screen Nonrea ctive nonrea ctive Not Available [facility] (Lab) [address], [place], [address], 08/31/2024 11:33:27 07/10/20 24 07/10/2024 US, obste tric, 2nd or 3rd trime ster No observ ation record ed. [email or web address] [facility] [address], [place], [address], 07/10/2024 18:08:14 07/10/20 24 07/10/2024 US, obste tric, follo w-up No observ ation record ed. [email or web address] [address], [place], [address], 07/10/2024 14:30:51 08/09/20 24 08/09/2024 US, obste tric, follo w-up No observ ation record ed. [email or web address] [facility] [address], [place], [address], 08/09/2024 18:07:39 08/09/20 24 08/09/2024 US, doppl er, umbil ical arter y veloc imetr y No observ ation record ed. [email or web address] [facility] [address], [place], [address], 08/09/2024 18:07:49 08/09/20 24 08/09/2024 US, obste tric, follo w-up No observ ation record ed. [email or web address] [address] [facility], [place], [address], 08/10/2024 09:26:35 08/16/20 24 08/16/2024 US, obste tric, follo w-up No observ ation record ed. [address] [place], [address], 08/21/2024 14:35:01 08/16/20 24 08/16/2024 US, obste tric, follo w-up No observ ation record ed. [email or web address] [address], [address], 08/21/2024 18:44:08 08/16/20 24 08/16/2024 US, obste tric, follo w-up No observ ation record ed. [address] [facility], [place], [address], 08/21/2024 14:35:41 08/23/20 24 08/23/2024 US, obste tric, follo w-up No observ ation record ed. [address] [facility] [address] [facility], [place], [address], 08/24/2024 12:17:03 08/30/20 24 08/30/2024 US, obste tric, follo w-up No observ ation record ed. [email or web address] [address], [place], [address], 09/07/2024 15:05:47 08/30/20 24 08/30/2024 US, obste tric, follo w-up No observ ation record ed. [address] [facility] [address] [place] [address], [address], 09/07/2024 14:59:51 09/19/20 24 09/19/2024 US, salin e infus ed uteru s No observ ation record ed. [email or web address] [facility] [address] [place] [address], [address], 09/21/2024 17:09:16 09/19/20 24 09/19/2024 US, obste tric, follo w-up No observ ation record ed. [email or web address] [address], [place], [address], 09/21/2024 17:07:07 10/03/19 25 10/03/2024 US, obste tric, follo w-up No observ ation record ed. [facility] [address] [place] [address], [address], 10/04/2024 11:09:59 10/03/19 25 10/03/2024 US, obste tric, follo w-up No observ ation record ed. [email or web address] [address], [place], [address], 10/04/2024 11:17:58 10/10/19 25 10/10/2024 US, obste tric, follo w-up No observ ation record ed. [email or web address] [facility] [address] [place] [address], [address], 10/11/2024 09:24:29 10/11/19 25 10/10/2024 US, obste tric, follo w-up No observ ation record ed. [facility] [address] [place] [address], [address], 10/11/2024 11:16:37 10/17/19 25 10/17/2024 US, salin e infus ed uteru s No observ ation record ed. [email or web address] [facility] [address] [place] [address], [address], 10/18/2024 22:07:34 10/18/19 25 10/17/2024 US, obste tric, follo w-up No observ ation record ed. [email or web address] [address], [place], [address], 10/22/2024 22:44:55 10/24/19 25 10/24/2024 US, obste tric, follo w-up No observ ation record ed. [email or web address] [facility] [address] [place] [address], [address], 10/24/2024 16:25:09 10/24/19 25 10/24/2024 US, obste tric, bioph ysica l profi le + non-s tress test No observ ation record ed. [facility] [address], [place], [address], 10/25/2024 10:40:06 10/25/19 25 10/24/2024 imagi ng/di agnos tic resul t No observ ation record ed. [email or web address] [facility] [address] [place], [address], 10/25/2024 09:32:13 Result Notes None recorded. Problems Name Problem SNOMED Code Status Onset Date Resolution Date Notes Provider Name and Address Organization Details Recorded Time Prediabet es 488803097 Active 2023 MARY CAMPBELL MD [address], [place], [address], [place] [facility] 4 17:19:44 61618122 Active 2023 Cyndee Coleman [facility], [facility] 4 19:05:42 Herpes simplex 44319916 Active valtrex at 36wks Lul[facility], [facility] 4 14:38:56 Herpes simplex 93010299 Active valtrex at 36wks Lulú Ram lizbeth, [facility] 4 14:38:56 Past history of premature delivery 338646864 Active 36wks 3# Lulú Ram lizbeth, [facility] 4 14:41:25 Past history of premature delivery 361388769 Active 36wks 3# Lulú Ram lizbeth, [facility] 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 4 14:30:07 Placenta circumval gricel 7259216 Active 32 week growth us Lulú Ram null, [facility] 14:30:07 growth restricti on Active EFW 9% antental testing [facility] weekly on Tuesdays [facility] recommend 37wk delivery Lulú Ram null, [facility] 18:41:13 growth restricti on Active EFW 9% antental testing [facility] weekly on Tues[facility] recommend 37wk delivery Lulú Ram null, [facility] 18:41:13 Problem Notes None recorded. Procedures Surgical History Date Name Laterality Status Provider Name and Address Organization Details Recorded Time 02/22/20 24 SIS completed MARY CAMPBELL MD [address], [place], [address], [facility] 02/22/2024 14:59:37 10/22/19 24 Dilation and Curettage completed Mary Anne Foley [facility] 04/11/2024 16:28:40 06/04/20 23 Date of Last Pap Smear completed Jennifer Gaspar [facility] 01/26/2024 09:35:03 06/20/20 20 arm destructive procedure completed Mary Anne Foley [facility] 04/11/2024 16:29:31 Imaging Results Imaging Date Name Status LastModified by Organiz ation Details LastModified Time 07/10/2024 US, obstetric, 2nd or 3rd trimester completed [email or web address] [place] [address], [place], [address], 07/10/2024 18:08:14 07/10/2024 US, obstetric, follow-up completed [email or web address] [address], [place], [address], 07/10/2024 14:30:51 08/09/2024 US, obstetric, follow-up completed [email or web address] [facility] [address], [place], [address], 08/09/2024 18:07:39 08/09/2024 US, doppler, umbilical artery velocimetry completed [email or web address] [facility] [address], [place], [address], 08/09/2024 18:07:49 08/09/2024 US, obstetric, follow-up completed [email or web address] [address], [place], [address], 08/10/2024 09:26:35 08/16/2024 US, obstetric, follow-up completed [address], [address], 08/21/2024 14:35:01 08/16/2024 US, obstetric, follow-up completed [email or web address], [address], 08/21/2024 18:44:08 08/16/2024 US, obstetric, follow-up completed [address], [address], 08/21/2024 14:35:41 08/23/2024 US, obstetric, follow-up completed [address] [facility] [address] [place], [address], 08/24/2024 12:17:03 08/30/2024 US, obstetric, follow-up completed [email or web address] [facility] [address], [place], [address], 09/07/2024 15:05:47 08/30/2024 US, obstetric, follow-up completed [email or web address] [facility] [address], [place], [address], 09/07/2024 14:59:51 09/19/2024 US, saline infused uterus completed [email or web address] [facility] [address] [place] [address], [address], 09/21/2024 17:09:16 09/19/2024 US, obstetric, follow-up completed [email or web address] [address], [place], [address], 09/21/2024 17:07:07 10/03/2024 US, obstetric, follow-up completed [facility] [address], [address], 10/04/2024 11:09:59 10/03/2024 US, obstetric, follow-up completed [email or web address] [address], [place], [address], 10/04/2024 11:17:58 10/10/2024 US, obstetric, follow-up completed [email or web address] [facility] [address] [place], [address], 10/11/2024 09:24:29 10/10/2024 US, obstetric, follow-up completed [email or web address] [facility] [address], [address], 10/11/2024 11:16:37 10/17/2024 US, saline infused uterus completed [email or web address] [facility] [address] [place] [address], [address], 10/18/2024 22:07:34 10/17/2024 US, obstetric, follow-up completed [email or web address] [place], [place], [address], 10/22/2024 22:44:55 10/24/2024 US, obstetric, follow-up completed [facility] [address] [place], [address], 10/24/2024 16:25:09 10/24/2024 US, obstetric, biophysical profile + non-stress test completed [email or web address] [facility] [address], [place], [address], 10/25/2024 10:40:06 10/24/2024 imaging/diagnos tic result active [email or web address] [facility] [address] [place], [address], 10/25/2024 09:32:13 Procedure Notes None recorded. Medical Equipment None [...] completed Not Available Not Available Not Available valacyclovi r 500 mg tablet TAKE 1 TABLET BY MOUTH EVERY DAY active Not Available Not Available No t Available acetaminoph en 500 mg tablet TAKE 2 TABLETS BY MOUTH EVERY 6 HOURS 08/31 completed Not Available Not Available Not Available famotidine 20 mg tablet Take 1 tablet twice a day by oral route for 30 days. 09/27 completed Not Available Not Available Not Available benzonatate 100 mg capsule TAKE 1 [...] TAKE 1 TABLET BY MOUTH EVERY DAY 09/27 completed Not Available Not Available Not Available metoclopram bao 10 mg tablet TAKE [...] Updated DateTime 08/09/2024 156.21 cm 32.3 kg/m2 14990.07 238 g 116 mm[Hg] 77 mm[Hg] Jennifer [facility] 4 14:50:01 Date Recorded Body height Body mass index (BMI) Body weight Systolic blood pressure Diastolic blood pressure Provider Name and Address Organization Details Last Updated DateTime 08/30/2024 156.21 cm 32.5 kg/m2 52308.66 475 g 119 mm[Hg] 82 mm[Hg] [facility] 4 14:10:09 Date Recorded Body height Body mass index (BMI) Body weight Systolic blood pressure Diastolic blood pressure Provider Name and Address Organization Details Last Updated DateTime 09/27/2024 156.21 cm 33.5 kg/m2 66699.34 5074 g 103 mm[Hg] 71 mm[Hg] [facility] 5 09:54:28 Date Recorded Body height Body mass index (BMI) Body weight Systolic blood pressure Diastolic blood pressure Provider Name and Address Organization Details Last Updated DateTime 10/11/2024 156.21 cm 33.3 kg/m2 16041.03 g 115 mm[Hg] 76 mm[Hg] [facility] 5 14:13:39 Social History Question Answer Notes LastModified by Organizat ion Details LastModified Time Tobacco Smoking Status Current Every Day Smoker Mary Anne nieves [facility] 04/11/2024 16:28:24 Do You Have An Advance Directive? No Information not available 07/24/2022 What Is Your Level Of Alcohol Consumption? None [email or web address] Information not available 04/11/2024 If You Are , What Was Your Level Of Alcohol Consumption Prior To ? Occasional [email or web address] Information not available 04/11/2024 How Many Years [...] Or The Highest Degree You Have Received? [id number] Information not available 07/24/2022 Are There Any [...] Anxious, Or Unable To Sleep At Night)? [id number] Information not available 07/24/2022 Do You Use [...] have difficulty walking or climbing stairs? No [email or web address] Information not available 10/05/2023 Are you able to walk? [email or web address] Information not available 07/24/2022 Are you able to care for yourself? Yes [email or web address] Information not available 10/05/2023 Do you have difficulty dressing or bathing? No [email or web address] Information not available 10/05/2023 What is your [...] Diagnosis/Indication Diagnosis SNOMED-CT Code Diagnosis ICD10 Code Diagnosis Note [id number] Karen Queen [facility] [address],[place] [address] 07/24/2022 14:19:51 07/24/2022 14:55:54 Sexually transmitted infectious disease 9829900 A64 STD screen updated. Vaginitis 45408034 N76.0 Suspect BV/YeastRx sentSTD screen sent per request Counseled on medication R/B's, Most common side effects, & use. All questions were answered to patient satisfacti on. Hx reviewed & updated Time spent in visit is a total of 30 mins with at least 50% of visit consisting of counseling and review of plan of care. 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 All questions were answered to patient satisfacti on. Time spent in visit is a total of 15 mins with at least 50% of visit consisting of counseling and review of plan of care. [id number] MARY CAMPBELL MD [facility] [address],[place] [address] 06/04/2023 15:59:50 06/07/2023 16:18:19 Gynecologic examination 98181050 Z01.419 [facility]- Cervical cancer screening: Pap smear obtained today, will follow up on the results with the patient as they become available- HPV immunizati on: has not received, discussed and recommende d today- STD testing: received- hereditary cancer screening: does not qualify for testing [facility] 168566620 Z30.9 - patient desires BCPs, will give sample of Slynd today- discussed smoking cessation prior to starting estrogen containing pills [id number] MARY CAMPBELL MD [facility] [address],[place] [address] 07/05/2023 16:24:45 07/06/2023 08:55:12 Pain in pelvis 09420750 R10.2 - pain started 06/24 with ovulation- patient concerned as pain and other symptoms are similar to ectopic - UPT negative in office- low suspicion for ectopic - likely / mittelschm ertz vs MSK vs GI illness- pelvic US to r/o ovarian cysts [id number] [facility] [address],[place] [address] 09/10/2023 16:26:51 09/12/2023 09:20:20 Past history of ectopic 017823184 Z87.59 Z3A.01 [id number] [facility] [address],[place] [address] 09/21/2023 16:58:04 09/22/2023 09:47:42 Past history of ectopic 145678623 Z87.59 Z3A.01 [id number] MARY CAMPBELL MD [facility] [address],[place] [address] 10/05/2023 15:35:25 10/12/2023 08:56:05 Missed miscarriage 01463958 O02.1 Z3A.01 - US demonstrat es enlarged YS with GS, no embryo, no cardiac activity- c/w missed miscarriag e- discussed expectant vs medical vs surgical management with patient, who is undecided- returns home on 10/10, will discuss with him and decide at that time- warning signs and return precaution s discussed [id number] Emily Tran [facility] [address],[place] [address] 10/05/2023 15:36:12 10/05/2023 16:16:08 Missed miscarriage 77286843 O02.1 Z3A.01 [id number] MARY CAMPBELL MD [facility] [address],[place] [address] 01/26/2024 09:28:55 01/27/2024 03:54:53 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 - s/p 2 consecutiv e miscarriag es- hx of q in 2017- POC from suction D&C shows 92 XXXX- discussed potential causes of recurrent miscarriag es including APLS, thyroid disease, diabetes, structural (polyps, fibroids, mullerian anomalies, scar tissue), abnormal parental karyotypes .- recommend APLS workup, TSH, HgbA1c, parental karyotypes and SIS to evaluate for causes of recurrent miscarriag es- patient would like to pursue all of the above workup at this time [id number] MARY CAMPBELL MD [facility] [address],[place] [address] 02/22/2024 13:56:25 02/22/2024 15:09:28 Recurrent miscarriage 565332621 N96 - s/p 2 consecutiv e miscarriag es- hx of 1 in 2017- POC from suction D&C shows 92 XXXX- discussed potential causes of recurrent miscarriag es including APLS, thyroid disease, diabetes, structural (polyps, fibroids, mullerian anomalies, scar tissue), abnormal parental karyotypes .- labwork unremarkab le aside from prediabeti c A1c- SIS performed today, will follow up with results as available [id number] [facility] [address],[place] [address] 02/22/2024 13:56:49 02/22/2024 14:57:12 Recurrent miscarriage 551492482 N96 [id number] [facility] [address],[place] [address] 03/24/2024 12:26:47 03/24/2024 13:32:00 History of poor outcome 0452040987 18151 Z87.59 Z3A.01 [facility] [address],[place] [address] 04/11/2024 15:24:38 04/11/2024 16:03:18 MARY CAMPBELL MD [facility] [address],[place] [address] 04/11/2024 15:25:02 04/11/2024 17:19:15 Amenorrhea 72765323 N91.2 Z32.01 1. Exam today within normal limits.2. Ultrasound today confirms GA and viability. EDC . GC/Clamydi a testing done: will f/u as indicated. 4. ACOG guidelines and plan of care for reviewed with patient. All questions answered.5 . Return to office at 12 weeks for new OB visit6. Will need new OB labs with NIPT.7. Genetic screening: desires at 10 weeks, orders given today Venereal d isease screening 616019984 Z11.3 screening 2437 87943 Z36.0 Genetic in vestigation procedure 17020259 Z31.430 [id number] Emily Tran [facility] [address],[place] [address] 05/09/2024 14:29:23 05/09/2024 15:19:46 screening 044949126 Z36.82 Z3A.11 [id number] MARY CAMPBELL MD [facility] [address],[place] [address] 05/09/2024 14:29:45 05/10/2024 09:35:04 Routine care 522295295 Z34.90 Prediabetes 750160010 R7 3.03 - metformin 500mg dialy Gestation period, 11 weeks 56242547 Z3A.[id number] 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 - growth wnl at anatomy 36%, repeat at 32 weeks Gestation period, 20 weeks 02073392 Z3A.20 - continue PNV [id number] Emily Tran [facility] [address],[place] [address] 08/09/2024 14:03:15 08/09/2024 14:50:15 screening 300838477 Z36.2 O43.112 Z3A.25 [id number] MARY CAMPBELL MD [facility] [address],[place] [address] 08/09/2024 14:03:37 08/09/2024 15:28:03 growth restriction 79110964 O36.5999 Past pregn karan history of premature delivery 053299882 Z87.51 Placenta circumvallata 4620078 O43.119 - growth wnl at anatomy 36%, repeat at 32 weeks Gestation period, 25 weeks 92434440 Z3A.25 [id number] MARY CAMPBELL MD [facility] [address],[place] [address] 08/30/2024 14:01:59 08/30/2024 14:38:08 Gestation period, 28 weeks 72910638 Z3A.28 - GCT and labs today- discussed Tdap Past pregn karan history of premature delivery 322738153 Z87.51 Placenta circumvallata 8752559 O43.119 - growth wnl at anatomy 36%, normal at [facility] today (16%) [id number] MARY CAMPBELL MD [facility] [address],[place] [address] 09/27/2024 09:49:01 10/04/2024 03:15:31 growth restriction 38329966 O36.5999 - following with [facility] Gestation period, 32 weeks [id number] Z3A.32 - continue PNV [id number] MARY CAMPBELL MD [place] [address],[facility] [address] 10/11/2024 14:09:37 10/12/2024 05:26:59 Herpes simplex 78246085 B00.9 - will start valtrex for suppressio n until delivery grow th restriction 58881386 O36.5999 - following with MFM, testing scheduled- recommend 38 week delivery, will schedule for 11/08 Gestation period, 34 weeks [id number] Z3A.34 Health Concerns Section Related Observation LastModified by Organization Detai ls LastModified Time None Recorded Concern Status LastModified by Organization Details LastModified Time None Recorded Advance Directives Directive N: Payers Encounter Date Sequence Insurance Name Policy Number Policy Barba Covered Member ID Barba Member ID Guarantor Name 08/09/2024 1 [facility] ON OR AFTER 03/20/21 (MEDICAID REPLACEMENT - HMO) Marnie Jones [id number] Marnie Jones 08/09/2024 1 [facility] ON OR AFTER 03/20/21 (MEDICAID REPLACEMENT - HMO) Marnie Jones [id number] Marnie Jones 08/30/2024 1 [facility] ON OR AFTER 03/20/21 (MEDICAID REPLACEMENT - HMO) Marnie Jones [id number] Marnie Jones 09/27/2024 1 [facility] ON OR AFTER 03/20/21 (MEDICAID REPLACEMENT - HMO) Marnie Jones [id number] Marnie Jones 10/11/2024 1 [facility] ON OR AFTER 03/20/21 (MEDICAID REPLACEMENT - HMO) Marnie Jones [id number] Marnie Jones OBGyn Episode Ob Episode Information Episode Created Date Number of Fetuses Patient Bloodtype Patient rh Status Prepregnancy Weight lbs Domestic Partner Domestic Partner Phone Father Name Dinkey Operator Slate Status 07/24/20 22 1 CLOSED Fetus Data First Name Last Name Admitted to NICU Weight (g) Sex Living Outcome Pediatric Complications Fetus ID Race Codes Race Delivery Type 1360.77 6 F Prematur e 00248 Vaginal Delivery Karri Calculation Initial Karri Date Initial Exam Date Initial Exam Provider Initial Ultrasound Date Last Menstrual Period Date Ultra Sound Weeks Gestation 0 Eighteen To Twenty Week Karri Update Ultra Sound Date Fundal Height At Umbil Quickening Date Ultra Sound Latest Weeks Gestation Final Karri Confirmed By Final Karri Confirmed Date Final Karri Date Ultra Sound Latest Days Gestation 0 [...] Domestic Partner Domestic Partner Phone Father Name Dinkey Operator Slate Status 01/26/20 24 1 CLOSED Fetus Data First Name Last Name Admitted to NICU Weight (g) Sex Living Outcome Pediatric Complications Fetus ID Race Codes Race Delivery Type , Spontane ous 02673 Karri Calculation Initial Karri Date Initial Exam Date Initial Exam Provider Initial Ultrasound Date Last Menstrual Period Date Ultra Sound Weeks Gestation 0 Eighteen To Twenty Week Karri Update Ultra Sound Date Fundal Height At Umbil Quickening Date Ultra Sound Latest Weeks Gestation Final Karri Confirmed By Final Karri Confirmed Date Final Karri Date Ultra Sound Latest Days Gestation 0 [...] Domestic Partner Domestic Partner Phone Father Name Dinkey Operator Slate Status 05/09/20 24 1 A Positive OPEN Fetus Data First Name Last Name Admitted to NICU Weight (g) Sex Living Outcome Pediatric Complications Fetus ID Race Codes Race Delivery Type [id number] Problems Problem Notes -EFW 3% AC <1% S/D Ratio mid ly elevated for GA - MFM referral faxed to Marlene 08/09 - pt request to see [facility] STL referral sent 08/23 & 08/30 US & OV 1030 09/19 0815 NST & [facility] 10/02 US & NST 10/24 [facility] recommend 37 week delivery , 2wkly testing , scheduled 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 valtr ex at 36wks Karri Calculation Initial Karri Date Initial Exam Date Initial Exam Provider Initial Ultrasound Date Last Menstrual Period Date Ultra Sound Weeks Gestation 11/22/2024 05/09/2024 04/11/2024 02/16/2024 7 Eighteen To Twenty Week Karri Update Ultra Sound Date Fundal Height At Umbil Quickening Date Ultra Sound Latest Weeks Gestation Final Karri Confirmed By Final Karri Confirmed Date Final Karri Date Ultra Sound Latest Days Gestation 0 dswayne 05/09/2024 11/23/19 25 0 Pre-rosa Flowsheet Flowsheet Date 05/09/2024 Zamora Score Blood Edema Fundus Height Fundus Units Glucose Ketones Leukocytes Nitrite Labor Signs Protein Cervic Dilation Cervic Effacement Cervic Station Type Weight in lbs Pre/Post Dialysis Refused Weight 174.291122215037 BP Diastolic BP Location Tested BP Systolic BP Type 80 127 Fetus Heart Rate Present A 160 Fetus Movement A Yes Comments Patient presents to [facility] care. Doing well, nausea minimal. No cramping [...] Type Weight in lbs Pre/Post Dialysis Refused 168.368998037187 BP Diastolic BP Location Tested BP Systolic [...] Type Weight in lbs Pre/Post Dialysis Refused 171.128615854982 BP Diastolic BP Location Tested BP Systolic [...] Type Weight in lbs Pre/Post Dialysis Refused 174.15622536005 BP Diastolic BP Location Tested BP Systolic [...] Type Weight in lbs Pre/Post Dialysis Refused 175.660083624771 BP Diastolic BP Location Tested BP Systolic BP Type 82 L arm 119 sitting Fetus Heart Rate Present A Present Fetus Movement A Yes Comments Doing well, good movem ent. No cramping or bleeding. US wnl at [facility] today, AC and EFW 16%. UADs slightly elevated, repeat scan scheduled for 2 weeks. GCT and labs today, added ferritin and Fe panel as well. Discussed tdap vaccine. RTC 2 weeks. Flowsheet Date 09/27/2024 Zamora Score Blood Edema Fundus Height Fundus Units Glucose Ketones Leukocytes Nitrite Labor Signs Protein Cervic Dilation Cervic Effacement Cervic Station neg none Type Weight in lbs Pre/Post Dialysis Refused 180.910560313861 BP Diastolic BP Location Tested BP Systolic BP Type 71 L arm 103 sitting Fetus Heart Rate Present A 145 Fetus Movement A Yes Comments Good movement. M oskar ointment 10/02. Anemia on labs, discussed Fe supplement. Passed GCT. RTC 2 weeks. Flowsheet Date 10/11/2024 Zamora Score Blood Edema Fundus Height Fundus Units Glucose Ketones Leukocytes Nitrite Labor Signs Protein Cervic Dilation Cervic Effacement Cervic Station neg none Type Weight in lbs Pre/Post Dialysis Refused Weight 179.019365510974 BP Diastolic BP Location Tested BP Systolic BP Type 76 L arm 115 sitting Fetus Heart Rate Present A 145 Fetus Movement A Yes Comments Patient c/o of slight nausea , along with Cochise Dillard, cramping the past 3 days. Good movement. Was seen by MFM, FGR at 9%. UADs wnl. Monitoring at [facility]. Recommend 38 week delivery due to FGR. Patient voices understanding, plan for [facility] 11/08. Discussed GBS swab for next visit. RTC 2 weeks. Menstrual History Last Menstrual [...] Domestic Partner Domestic Partner Phone Father Name Dinkey Operator Slate Status 01/26/20 24 1 CLOSED Fetus Data First Name Last Name Admitted to NICU Weight (g) Sex Living Outcome Pediatric Complications Fetus ID Race Codes Race Delivery Type , Spontane ous 69284 Karri Calculation Initial Karri Date Initial Exam Date Initial Exam Provider Initial Ultrasound Date Last Menstrual Period Date Ultra Sound Weeks Gestation 0 Eighteen To Twenty Week Karri Update Ultra Sound Date Fundal Height At Umbil Quickening Date Ultra Sound Latest Weeks Gestation Final Karri Confirmed By Final Karri Confirmed Date Final Karri Date Ultra Sound Latest Days Gestation 0 [...] Domestic Partner Domestic Partner Phone Father Name Dinkey Operator Slate Status 10/05/19 24 1 CLOSED Fetus Data First Name Last Name Admitted to NICU Weight (g) Sex Living Outcome Pediatric Complications Fetus ID Race Codes Race Delivery Type Ectopic 92203 Karri Calculation Initial Karri Date Initial Exam Date Initial Exam Provider Initial Ultrasound Date Last Menstrual Period Date Ultra Sound Weeks Gestation 0 Eighteen To Twenty Week Karri Update Ultra Sound Date Fundal Height At Umbil Quickening Date Ultra Sound Latest Weeks Gestation Final Karri Confirmed By Final Karri Confirmed Date Final Karri Date Ultra Sound Latest Days Gestation 0 [...] Domestic Partner Domestic Partner Phone Father Name Dinkey Operator Slate Status 10/05/19 24 1 CLOSED Fetus Data First Name Last Name Admitted to NICU Weight (g) Sex Living Outcome Pediatric Complications Fetus ID Race Codes Race Delivery Type Ectopic 30789 Karri Calculation Initial Karri Date Initial Exam Date Initial Exam Provider Initial Ultrasound Date Last Menstrual Period Date Ultra Sound Weeks Gestation 0 Eighteen To Twenty Week Karri Update Ultra Sound Date Fundal Height At Umbil Quickening Date Ultra Sound Latest Weeks Gestation Final Karri Confirmed By Final Karri Confirmed Date Final Karri Date Ultra Sound Latest Days Gestation 0 [...]
--- OUTSIDE RECORDS SUMMARY | 2024-10-25 17:57 | XMS_ITS | Clinical Summary ---
Author Organization [facility] Address [address] [place] [address] Phone Care Team Providers Care Court Interpreter Name Role Phone Unavailable Primary Care Provider Unavailabl e Active Problems Problem Noted Date Diagnosed Date Poor growth affecting management of mother in second trimester 08/16/2024 Encounters Date Type Department Care Team Description 10/17/2024 External Device Data STL ABSTRACTION Provider, Abstract 10/11/2024 External Device Data [facility] ABSTRACTION Provider, Abstract 10/11/2024 External Device Data [facility] ABSTRACTION Provider, Abstract 08/23/2024 10:00 AM CHURCH ORGANIST - 08/23/2024 11:59 PM CHURCH ORGANIST Hospital Encounter [facility] Maternal and Ground [place] [address] [place] [address] [place] [phone] Sheila Chang MD Discharge Disposition: Home or Self Care 08/22/2024 External Device Data STL ABSTRACTION Provider, Abstract 08/16/2024 2:45 PM CHURCH ORGANIST Initial [facility] Maternal and Medicine [place] [address] [place] [address] Sheila Chang MD Poor growth affecting management of mother in second trimester, single or unspecified fetus (Primary Dx); 26 weeks gestation of 08/16/2024 1:30 PM CHURCH ORGANIST - 08/16/2024 11:59 PM CHURCH ORGANIST Hospital [facility] Maternal and Ground Floor [address] [place] [address] [place] [phone] Mary Campbell MD Discharge Disposition: Home or Self Care 08/10/2024 Orders Only [facility] Maternal and Ground Floor [address] [place] [address] [place] [address] Mary Campbell MD Poor growth affecting management of mother in second trimester, single or unspecified fetus (Primary Dx) from Last 3 Months Social History Tobacco Use Types Packs/Day Years Used Date Smoking Tobacco: Never Assessed Comments Unknown Sex and Gender Information Value Date Recorded Sex Assigned at Not on file Legal Sex Female 12:21 PM CDT Gender Identity Not on file Sexual Orientation Not on file Last Filed Vital Signs Vital Sign Reading Time Taken Comments Blood Pressure 113/66 08/16/2024 3:27 PM CHURCH ORGANIST Pulse 90 08/16/2024 3:27 PM CHURCH ORGANIST Temperature - - Respiratory Rate - - Oxygen Saturation - - Inhaled Oxygen Concentration - - Weight 79.4 kg (175 lb) 08/16/2024 3:27 PM CHURCH ORGANIST Height 154.9 cm (5' 1 ) 08/16/2024 3:27 PM CHURCH ORGANIST Body Mass Index 33.07 08/16/2024 3:27 PM CHURCH ORGANIST Plan of Treatment Health Maintenance Due Date Last Done Comments HEPATITIS B VACCINES (1 of 3 - 19+ 3-dose series) 12/30/2014 CERVICAL CANCER SCREENING 08/06/2020 08/06/2017 INFLUENZA VACCINE (#1) 2024 DTAP/TDAP/TD VACCINES (3 - Td or Tdap) 06/25/2030 06/25/2020, 02/18/2017 HPV VACCINES Aged Out No longer eligi ble based on patient's age to complete this topic Procedures Procedure Name Priority Date/Time Associated Diagnosis Comments US OB LTD+UMB ART DOPPLER Routine 08/23/2024 10:31 AM CHURCH ORGANIST Poor growth affecting management of mother in second trimester, fetus 1 of multiple gestation US OB DETAIL SINGLE GEST Routine 08/16/2024 2:58 PM CHURCH ORGANIST Abnormal head circumference in relation to growth and age standard from Last 3 Months Results * US OB LTD+UMB ART DOPPLER (08/23/2024 10:31 AM CHURCH ORGANIST) Anatomical Region Laterality Modality Pelvis Ultrasound 08/23/2024 11:1 5 AM CHURCH ORGANIST Narrative 08/23/2024 10:40 AM CHURCH ORGANIST STL LIMITED ----- Pat. Name: MARNIE JONES Study Date: 08/23/2024 11:15am Pat. NO: [id number] Referring MD: MARY CAMPBELL MD Site: [facility] Compressor Technician: Latanya Boss RDMS : 1995 Age: 28 ----- INDICATION ----- Intrauterine Growth Restriction (IUGR) Circumvallate Placenta History of PTL/PTD in Previous , Currently CODING ----- Diagnoses Z3A.27: Weeks of gestation O09.212: Supervision of with history of pre-term labor O43.112: Circumvallate placenta O36.5920: Maternal care for other known or suspected poor growth Procedures 14988: Ultrasound, uterus, real time with image documentation, limited one or more fetuses 68836: Doppler velocimetry, ; umbilical artery 60704: Doppler velocimetry, ; middle cerebral artery METHOD [...] Artery: abnormal. Sampling site: midcord PI 1.51 99% Regi RI 0.82 98% Regi PS 52.48 cm/s ED 10.49 cm/s TAmax 29.34 cm/s MD 10.22 cm/s S / D 5.41 >99% Regi Mid Cerebral Artery: normal PI 1.91 47% Bahlmann RI 0.83 67% [facility] 40.41 cm/s PS 1.15 MoM ED 6.82 cm/s S / D 5.93 CPR PI 1.26 2% Ebbing GROWTH OVERVIEW ----- Exam date GA BPD (mm) HC (mm) AC (mm) FL (mm) HL (mm) EFW (g) 08/16/2024 26w 0d 65.1 50% 233.7 11% 197.9 7% 49.5 57% 44.8 63% 813 20% COMMENT ----- Patient's name and date of were verified by the district administrative assistant prior to the exam. IMPRESSION ----- Viable [...] testing and ultrasounds in the center at [place] if she chooses. Procedure Note Chandler Salas MD - 08/23/2024 ST LIMITED ----- Pat. Name:Pedrito JONES Date:08/23/2024 11:15am Pat. NO: [id number] MD:MARY CAMPBELL [facility] Boss RDMS :1995Age:28 ----- INDICATION ----- Intrauterine Growth Restriction (IUGR) Circumvallate Placenta History of PTL/PTD in Previous , Currently CODING ----- Diagnoses Z3A.27: Weeks of gestation O09.212: Supervision of with history ofpre-term labor O43.112: Circumvallate placenta O36.5920: Maternal care for other known orsuspected poor growth Procedures 97631: Ultrasound, uterus, real time withimage documentation, limited one or more fetuses 28750: Doppler velocimetry, ; umbilicalartery 67533: Doppler velocimetry, ; middle cerebralartery METHOD ----- Transabdominal ultrasound examination ----- Vora . Number of fetuses: 1 DATING ----- GA by prior [id number] w + 0 d WILLIE by prior [...] and date of were verified by the district administrative assistant prior tothe exam. IMPRESSION ----- Viable at [...] testing and ultrasounds in the [facility] [place] if she chooses. us Sheila Chang MD US ORDERABLES Final Result * US OB DETAIL SINGLE GEST (08/16/2024 2:58 PM CHURCH ORGANIST) Anatomical Region Laterality Modality Pelvis Ultrasound 08/16/2024 1:58 PM CHURCH ORGANIST Narrative 08/16/2024 2:56 PM CHURCH ORGANIST STL COMP ----- Pat. Name: MARNIE JONES Study Date: 08/16/2024 1:58pm Pat. NO: [id number] Referring MD: Site: [facility] Compressor Technician: Clair Hicks RDMS : 1995 Age: 28 ----- INDICATION ----- Anatomy Survey low risk NIPT Intrauterine Growth Restriction (IUGR) Circumvallate Placenta History of PTL/PTD in Previous , 36 weeks PPROM Currently CODING ----- Diagnoses Z3A.26: Weeks of gestation O09.212: Supervision of with history of pre-term labor O43.112: Circumvallate placenta O36.5920: Maternal care for other known or suspected poor growth Z36.3: Encounter for screening for malformations Procedures 63036: Ultrasound, uterus, real time with image documentation, and maternal evaluation plus detailed anatomic examination, transabdominal approach 80494: Doppler velocimetry, ; umbilical artery 55100: Doppler velocimetry, ; middle cerebral artery METHOD [...] d Assigned WILLIE: 11/22/2024 BIOMETRY ----- BPD 65.1 mm 26w 2d 50% Hadlock OFD 81.0 mm 26w 2d 59% Ksenia HC 233.7 mm 25w 3d 11% Hadlock Cerebellum tr 29.5 mm 27w 1d 58% Justin AC 197.9 mm 24w 3d 7% Hadlock Femur 49.5 mm 26w 5d 57% Hadlock Humerus 44.8 mm 26w 4d 63% Ksenia HC / AC 1.18 83% Nicolaides Weight Calculation: EFW 813 g 25w 2d 20% Hadlock EFW (lb,oz) 1 lb 13 oz EFW by Hadlock ([id number]) Head / Face / Neck Biometry: Nutrition Internship 3.6 mm CM 5.0 mm 14% Nicolaides Inner IOD 16.5 mm Nasal 8.2 mm [...] Thorax 4-chamber view. RVOT view. LVOT view. 3-vessel view. 7-lpycvj-dzqrytd view. Situs. Aortic arch view. Ductal arch view. Superior vena cava. Inferior vena cava. High short axis view. Cardiac rhythm. Diaphragm. Abdomen Stomach. Kidneys. Bladder. Spine Cervical spine. Thoracic spine. Lumbar spine. Sacral spine. Extremities / Arms. Right hand. Left hand. Legs. Right foot. Left foot. Skeleton DOPPLER ----- Umbilical Artery: PI 1.47 97% Regi RI 0.81 96% Regi PS 54.00 cm/s ED 12.58 cm/s TAmax 30.53 cm/s MD 11.56 cm/s S / D 5.24 99% Regi HR 146 bpm Mid Cerebral Artery: PI 2.28 87% Bahlmann RI 0.88 90% Bahlmann PS 36.20 cm/s PS 1.08 MoM ED 4.46 cm/s TAmax 13.90 cm/s MD 4.32 cm/s S / D 8.12 CPR PI 1.55 15% Ebbing MATERNAL STRUCTURES ----- Right Ovary Suboptimal Left Ovary Suboptimal GROWTH OVERVIEW ----- Exam date GA BPD (mm) HC (mm) AC (mm) FL (mm) HL (mm) EFW (g) 08/16/2024 26w 0d 65.1 50% 233.7 11% 197.9 7% 49.5 57% 44.8 63% 813 20% COMMENT ----- Patient's name and date of were verified by the district administrative assistant before the exam IMPRESSION ----- Vora @ [...] Pat. Name:Pedrito JONES Date:08/16/2024 1:58pm Pat. NO: [id number] MD: [facility]Clair Hicks RDMS :1995Age:28 ----- INDICATION ----- Anatomy Survey low risk NIPT Intrauterine Growth Restriction (IUGR) Circumvallate Placenta History of PTL/PTD in Previous , 36 weeks PPROM Currently CODING ----- Diagnoses Z3A.26: Weeks of gestation O09.212: Supervision of with history ofpre-term labor O43.112: Circumvallate placenta O36.5920: Maternal care for other known orsuspected poor growth Z36.3: Encounter for screening formalformations Procedures 64975: Ultrasound, uterus, real time withimage documentation, and maternal evaluation plus detailed anatomic examination,transabdominal approach 58535: Doppler velocimetry, ; umbilicalartery 06031: Doppler velocimetry, ; middle cerebralartery METHOD ----- Transabdominal ultrasound examination ----- Vora . Number of fetuses: 1 DATING ----- Method of dating:based on stated WILLIE GA by prior [id number] w + 0 d WILLIE by prior [...] Hadlock Cerebellum tr 29.5 mm 27w 1d58% Nhan AC 197.9 mm 24w 3d7% Hadlock Femur 49.5 mm 26w 5d57% Hadlock Humerus 44.8 mm 26w 4d63% Ksenia HC / AC 1.18 83%Nicolaides Weight Calculation: EFW 813 g 25w 2d 20%Hadlock EFW (lb,oz) 1 lb 13 oz EFW by Hadlock ([id number]) Head / Face / Neck Biometry: Nutrition Internship 3.6 mm CM 5.0 mm 14%Nicolaides Inner [...] 4-chamber view. RVOT view. LVOT view. 3-vesselview. 0-dvffer-sopgdmo view. Situs. Aortic arch view. Ductal arch [...] and date of were verified by the district administrative assistant beforethe exam IMPRESSION ----- Vora @ 26w [...] participate in the care of this patient. us Mary Campbell MD ORDERABLES Edited Result - Final from Last 3 Months Insurance [employer]
--- OUTSIDE RECORDS SUMMARY | 2024-10-25 17:57 | XMS_ITS | Encounter Summary ---
Author Organization [facility] Address [address] [facility] [address] [place] [address] Phone Care Team Providers Care Heat Treater Helper Name Role Phone Brian Velarde DO Primary Care Provider + Encounter Details Date Type Department Care Team (Late st Contact Info) Description 03/03/2021 Orders Only [facility] [phone] Scanning, Provider Social History Tobacco Use Types Packs/Day Years Used Date Smoking Tobacco: Every Day Cigarettes 0.2 17.1 Started: 2007 Smokeless Tobacco: Never Alcohol Use Standard Drinks/Week Comments Yes 3 (1 standard drink = 0.6 oz pur e alcohol) occasional PHQ-2 Answer Date Recorded PHQ-2 Score 2 05/12/2019 Comments Unknown Sex and Gender Information Value Date Recorded Sex Assigned at Not on file Legal Sex Female 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 [address] Gender Identity Not on file Sexual Orientation Not on file 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 Not on file Not on file Not on file documented as of this encounter Plan of Treatment Upcoming Encounters Date Type Department Care Team (Late st Contact Info) Description 11/19/2024 Hospital Encounter [address] [address] Gal Bass MD [address] [facility] [phone] [place] [address] documented as of this encounter Procedures Procedure Name Priority Date/Time Associated Diagnosis Comments SCAN - RADIOLOGY/IMAGING 03/03/2021 documented in this encounter Results * SCAN - RADIOLOGY/IMAGING (03/03/2021) Anatomical Region Laterality Modality Other us Provider Scanning Final Result documented in this encounter Visit Diagnoses Not on filedocumented in this encounter Care Teams Heat Treater Helper Relationship Specialty Start Date End Date Brian Velarde DO [address] [place] [address] PCP - General Family Practice 07/25/20 documented as of this encounter
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
--- OUTSIDE RECORDS SUMMARY | 2024-10-25 17:58 | XMS_ITS | Patient Health Summary ---
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 Ingestion: Critical value > 50 g/mL For acute ingestion, please refer to Acetaminophen nomogram to determine the risk of toxicity based on time since ingestion and acetaminophen level (see link provided). Note the nomogram disclaimer. WARNING: Assessing the potential toxicity of an acetaminophen level on a standard risk nomogram must take into consideration many factors including any uncertainty of the time since ingestion or the possibility of other medications that may alter the peak level. Contact the [facility] at or reserved for healthcare professionals to assist you in evaluating potentially toxic acetaminophen levels. Reed Eng MD LAB - CHEMISTRY SANGITA ARAIZA Performing Organization Address City/[facility] Co de Phone Number [facility] [address] [place] [address] * PTT (08/07/2019 6:08 PM WOODWORKER HELPER) PTT 29.3 23.0 - 38.4 sec 08/07/2019 6:29 PM [facility] Blood BLOOD SPECIMEN / Unknown Venipuncture / Unknown 08/07/2019 6:08 PM WOODWORKER HELPER 08/07/2019 6:11 PM WOODWORKER HELPER Narrative [facility] - 08/07/2019 6:29 PM WOODWORKER HELPER Heparin Therapeutic Range for PTT: 71.0 - 109.0 seconds. Diego BRANDT LAB - COAGULATIO N ORDERABLES Performing Organization Address [facility] Co de Phone Number [facility] [address] [place] [address] * (ABNORMAL) PT-INR (08/07/2019 6:08 PM WOODWORKER HELPER) PT 14.3 12.1 - 14.8 sec 08/07/2019 6:29 PM WOODWORKER HELPER [facility] INR 1.2(H) 0.9 - 1.1 08/07/2019 6:29 PM WOODWORKER HELPER [facility] Blood BLOOD SPECIMEN / Unknown Venipuncture / Unknown 08/07/2019 6:08 PM WOODWORKER HELPER 08/07/2019 6:11 PM WOODWORKER HELPER Narrative [facility] - 08/07/2019 6:29 PM WOODWORKER HELPER Conventional Warfarin Anticoagulant Therapy: INR Reference Range: 2.0-3.0 Intensive Warfarin Anticoagulant Therapy: INR Reference Range: 2.5-3.5 Diego BRANDT LAB - COAGULATIO N ORDERABLES Performing Organization Address City/[facility]/ZIP Co de Phone Number [facility] [address] [place] [address] * LIPASE BLOOD (08/07/2019 6:08 PM WOODWORKER HELPER) Only the most recent of3 resultswithin the time period is included. Lipase 26 8 - 78 U/L 08/07/2019 6:32 PM WOODWORKER HELPER [facility] Blood BLOOD SPECIMEN / Unknown Venipuncture / Unknown 08/07/2019 6:08 PM WOODWORKER HELPER 08/07/2019 6:11 PM WOODWORKER HELPER Diego BRANDT LAB - CHEMISTRY ORDERABLES Performing Organization Address [facility] Co de Phone Number [facility] [address] [place] [address] * XR CERVICAL SPINE 2 OR 3 VWS (08/07/2019 1:24 PM WOODWORKER HELPER) Anatomical Region Laterality Modality Spine Radiographic Karen ging 08/07/2019 1:30 PM WOODWORKER HELPER Narrative 08/07/2019 1:30 PM WOODWORKER HELPER Cervical spine Indication for examination: Trauma with [...] SPINE 2 OR 3VW (08/07/2019 1:23 PM WOODWORKER HELPER) Anatomical Region Laterality Modality Spine Radiographic Karen ging 08/07/2019 1:30 PM WOODWORKER HELPER Narrative 08/07/2019 1:31 PM WOODWORKER HELPER Lumbar spine Indication for examination: Trauma with [...] * HCG URINE QUALITATIVE (08/07/2019 11:56 AM WOODWORKER HELPER) Pathologist [facility] hCG Qualitative Urine Negative Negative 08/07/2019 12:09 PM WOODWORKER HELPER [facility] Urine URINE / Unknown Collection / Unknown 08/07/2019 11:56 AM WOODWORKER HELPER 08/07/2019 12:02 PM WOODWORKER HELPER Reed Eng MD LAB - URINALYSIS ORD ERABLES [facility] [address] [place] [address] * (ABNORMAL) DRUG SCREEN TOX URINE PANEL (08/07/2019 11:56 AM WOODWORKER HELPER) Only the most recent of4 resultswithin the time period is included. Amphetamines Screen Urine Not detected Not detected 08/07/2019 7:22 PM [facility] Barbiturates Screen Urine Not detected Not detected 08/07/2019 7:22 PM [facility] Benzodiazepines Screen Urine Not detected Not detected 08/07/2019 7:22 PM [facility] Cannabinoids Screen Urine Detected(A) Not detected 08/07/2019 7:22 PM [facility] Cocaine Screen Urine Not detected Not detected 08/07/2019 7:22 PM [facility] Fentanyl Urine Not detected Not detected 08/07/2019 7:22 PM [facility] Methadone Screen Urine Not detected Not detected 08/07/2019 7:22 PM [facility] Opiate Screen Urine Not detected Not detected 08/07/2019 7:22 PM [facility] Phencyclidine Screen Urine Not detected Not detected 08/07/2019 7:22 PM [facility] Urine URINE / Unknown Collection / Unknown 08/07/2019 11:56 AM WOODWORKER HELPER 08/07/2019 12:02 PM [facility] - 08/07/2019 7:22 PM [facility] This drug screen is designed for MEDICAL purposes only. It is not to be used for legal purposes, including but not limited to worker's comp, police investigations, occupational issues, child custody, etc. Any positive result is only presumptive and must be confirmed with a separate confirmatory test ordered by the physician. Drug Screening Test Cutoff Values: AMPHETAMINES 1000 ng/mL BARBITURATES 200 ng/mL BENZODIAZEPINES 200 ng/mL CANNABINOIDS(THC) 50 ng/mL COCAINE 300 ng/mL FENTANYL 1 ng/mL METHADONE 300 ng/mL OPIATES 300 ng/mL PHENCYCLIDINE(PCP) 25 ng/mL Reed Eng MD LAB - URINE CHEMISTR Y ORDERABLES [facility] [address] [place] [address] * HCG URINE QUALITATIVE - [...] pH units Blood UA neg Negative Specific [place] UA POCT 1.025 1.002 - 1.030 Ketone UA neg Negative Bilirubin UA POCT neg Negative Glucose UA neg Negative Urine URINE / Unknown 05/10/2019 Brian Serranodeejay DO LAB - POINT OF CARE ORDERABLES * CARDIAC RHYTHM STRIP ORDER (03/10/2019 12:16 PM CDT) Narrative 03/10/2019 12:16 PM CDT Ordered by an unspecified provider. Scanned Document CARDIAC SERVICES ORD ERABLES * ECHOCARDIOGRAM 2D WITH DOPPLER (03/09/2019 11:44 AM CDT) 03/09/2019 11:4 4 AM CDT Narrative [facility] - 03/09/2019 5:[address] [address] Transthoracic Echocardiogram 2D, M-mode, Doppler, and Color Doppler Patient: HANNY MURPHY MR number: [id number] Height: 61 in Weight: 184.6 lb BSA: 1.83 m Study date: 09-Mar-2019 : 1995 Age: 23 years Gender: Female Race: Black Director Of Midwifery/Staff Midwife: Veronika Valladares RDCS Referring Physician: Nate Nelson [...] Procedure Note Dontrell Clifford MD - 03/16/2019 [facility] [address] [place] [address] Transthoracic Echocardiogram 2D, M-mode, Doppler, and Color Doppler Patient: HANNY MURPHY MR number: [id number] Height: 61 in Weight: 184.6 lb BSA: 1.83 m Study date: 09-Mar-2019 : 1995 Age: 23 years Gender: Female Race: Black Director Of Midwifery/Staff Midwife: Veronika Valladares RDCS Referring Physician: Nate Nelson [...] 09-Mar-2019 17:13:56 Nate Nelson MD ECHO ORDERABLES Performing Organization Address City/State/[facility] Co de Phone Number [facility] [address] [place] [address] * (ABNORMAL) TROPONIN I (03/09/2019 3:42 AM CDT) Only the most recent of4 resultswithin the time period is included. Troponin I 0.068(HH) <0.038 ng/mL 03/09/2019 4:25 AM CDT [facility] Blood BLOOD SPECIMEN / Unknown Lab Venipuncture / Unknown 03/09/2019 3:42 AM CDT 03/09/2019 3:46 AM CDT Narrative [facility] - 03/09/2019 4:25 AM CDT Note: [...] - CHEMISTRY OR DERABLES Performing Organization Address [facility]/ZIP Co de Phone Number [facility] [address] [place] [address] * MAGNESIUM BLOOD (03/09/2019 3:42 AM CDT) Only the most recent of2 resultswithin the time period is included. Magnesium 2.2 1.6 - 2.6 mg/dL 03/09/2019 4:14 AM CDT [facility] Blood BLOOD SPECIMEN / Unknown Lab Venipuncture / Unknown 03/09/2019 3:42 AM CDT 03/09/2019 3:46 AM CDT Nate Nelson MD LAB - CHEMISTRY SANGITA ARAIZA Performing Organization Address [facility] Co de Phone Number [facility] [address] [place] [address] * ED CRITICAL CARE (03/09/2019 1:46 AM CDT) Narrative Danish Sullivan DO - 03/09/2019 1:46 AM CDT Danish Sullivan DO 03/09/2019 1:46 AM Critical Care Performed by: DANISH SULLIVAN [...] me on the following activities: Development of treatment plan with patient or surrogate, [...] See Separate Report 03/09/2019 2:00 AM CDT [facility] Urine URINE / Unknown 03/09/2019 1 2:36 AM CDT 03/09/2019 12:36 AM CDT Danish Desouzaadalgisa DO LAB - URINALYSIS O RDERABLES [facility] [address] [place] [address] * RENAL FUNCTION PANEL (03/09/2019 12:09 AM CDT) [facility] Glucose 98 74 - 106 mg/dL 03/09/2019 12:46 AM CDT [facility] Sodium 138 136 - 145 mmol/L 03/09/2019 12:46 AM CDT [facility] Potassium 4.1 3.5 - 5.1 mmol/L 03/09/2019 12:46 AM CDT [facility] Chloride 105 98 - 107 mmol/L 03/09/2019 12:46 AM CDT [facility] CO2 25 23 - 31 mmol/L 03/09/2019 12:46 AM CDT [facility] Calcium 9.5 8.4 - 10.2 mg/dL 03/09/2019 12:46 AM CDT [facility] Anion Gap 8 8 - 16 mmol/L 03/09/2019 12:46 AM CDT [facility] BUN 7 7 - 18.7 mg/dL 03/09/2019 12:46 AM CDT [facility] Creatinine 0.68 0.55 - 1.02 mg/dL 03/09/2019 12:46 AM CDT [facility] Albumin 3.9 3.5 - 5.2 gm/dL 03/09/2019 12:46 AM CDT [facility] Phosphorus 3.3 2.3 - 4.7 mg/dL 03/09/2019 12:46 AM CDT [facility] eGFR by MDRD >60 >60 mL/min/1.7 3m2 03/09/2019 12:46 AM CDT [facility] eGFR by MDRD >60 >60 mL/min/1.7 3m2 03/09/2019 12:46 AM CDT [facility] Blood BLOOD SPECIMEN / Unknown Lab Venipuncture / Unknown 03/09/2019 12:09 AM CDT 03/09/2019 12:12 AM CDT Narrative [facility] - 03/09/2019 12:46 AM CDT Attention clinician: BUN Reference Range has changed. Nate Nelson MD LAB - CHEMISTRY ASNGITA ARAIZA Performing Organization Address [facility] Co de Phone Number [facility] [address] [place] [address] * TSH (03/09/2019 12:09 AM CDT) Only the most recent of2 resultswithin the time period is included. TSH 0.6880 0.358 - 3.74 uIU/mL 03/09/2019 1:01 AM CDT [facility] Blood BLOOD SPECIMEN / Unknown Lab Venipuncture / Unknown 03/09/2019 12:09 AM CDT 03/09/2019 12:12 AM CDT Nate Nelson MD LAB - CHEMISTRY SANGITA ARAIZA Performing Organization Address [facility] Co de Phone Number [facility] [address] [place] [address] * XR CHEST PA AND LATERAL (03/08/2019 [...] thorax are normal. No change since 03/24/2018. Procedure Note Adal Darnell [...] urogenital anjelica CHELA 03/25/2018 3:29 PM CDT [facility] Urine URINE SPECIMEN OBTAINED BY CLEAN CATCH PROCEDURE / Unknown Collection / Unknown 03/24/2018 1:01 PM CDT 03/24/2018 1:11 PM CDT Venice Hernández MD LAB - MICROBIOLOGY O RDERABLES [facility] [address] [place] [address] [phone] * XR CHEST 1VW PORTABLE (03/24/2018 11:58 [...] HCG BLOOD QUALITATIVE (03/24/2018 11:38 AM CDT) Pathologist [facility] HCG Qual Serum Negative Negative 03/24/2018 11:59 AM CDT [facility] Blood BLOOD SPECIMEN / Unknown Venipuncture / Unknown 03/24/2018 11:38 AM CDT 03/24/2018 11:38 AM CDT Venice Hernández MD LAB - CHEMISTRY SANGITA ARAIZA Performing Organization Address [facility] Co de Phone Number [facility] [address] [place] [address] * TSH REFLEX FREE T4 (03/24/2018 11:35 AM CDT) Pathologist [facility] TSH 2.75 0.358 - 3.740 ulU/mL 03/24/2018 12:08 PM CDT [facility] Blood BLOOD SPECIMEN / Unknown Venipuncture / Unknown 03/24/2018 11:35 AM CDT 03/24/2018 11:37 AM CDT Venice Hernández MD LAB - CHEMISTRY SANGITA ARAIZA Performing Organization Address [facility] Co de Phone Number [facility] [address] [place] [address] * HIV-1 HIV-2 ANTIBODY + HIV P24 AG PANEL (08/06/2017 4:02 PM WOODWORKER HELPER) Only the most recent of2 resultswithin the time period is included. Pathologist [facility] HIV1/2 Ab + P24 Ag Non Reactive Non Reactive 08/06/2017 11:20 PM WOODWORKER HELPER [facility] Blood BLOOD SPECIMEN / Unknown Venipuncture / Unknown 08/06/2017 4:02 PM WOODWORKER HELPER 08/06/2017 4:26 PM WOODWORKER HELPER Narrative [facility] - 08/06/2017 11:20 PM WOODWORKER HELPER No Laboratory evidence of HIV infection. Yolette Peters MD LAB - CHEMISTRY ELIZABETH CRUZ [facility] [address] [place] [address] * RPR (08/06/2017 4:02 PM WOODWORKER HELPER) Only the most recent of3 resultswithin the time period is included. RPR Non Reactive Non Reactive 08/07/2017 7:47 AM WOODWORKER HELPER [facility] Blood BLOOD SPECIMEN / Unknown Venipuncture / Unknown 08/06/2017 4:02 PM WOODWORKER HELPER 08/06/2017 4:26 PM WOODWORKER HELPER Yolette Peters MD LAB - CHEMISTRY ORD ERABLES Performing Organization Address City/[facility]/ZIP Co de Phone Number [facility] [address] [place], [place] [id number] * HEPATITIS B SURFACE ANTIGEN W RFLX CONFIRMATION (08/06/2017 4:02 PM WOODWORKER HELPER) Only the most recent of2 resultswithin the time period is included. Pathologist [facility] HBsAg Non Reactive Non Reactive 08/06/2017 5:17 PM WOODWORKER HELPER [facility] Blood BLOOD SPECIMEN / Unknown Venipuncture / Unknown 08/06/2017 4:02 PM WOODWORKER HELPER 08/06/2017 4:26 PM WOODWORKER HELPER Yolette Peters MD LAB - CHEMISTRY ORD ERABLES Performing Organization Address City/[facility] Co de Phone Number [facility] [address] [place] [address] * TRICHOMONAS RAPID TEST (08/06/2017 4:01 PM WOODWORKER HELPER) Only the most recent of2 resultswithin the time period is included. Pathologist [facility] Trichomonas Rapid Test Negative Negative 08/06/2017 4:42 PM WOODWORKER HELPER [facility] Microbiology ENTIRE VAGINA / Unknown Collection / Unknown 08/06/2017 4:01 PM WOODWORKER HELPER 08/06/2017 4:09 PM WOODWORKER HELPER Yolette Peters MD LAB - MICROBIOLOGY ORDERABLES Performing Organization Address City/[facility]/ZIP Co de Phone Number [facility] [address] [place] [address] * PAP LB RFLX HPV ASCU (08/06/2017 4:01 PM WOODWORKER HELPER) Diagnosis Comment 08/16/2017 12:09 PM WOODWORKER HELPER [facility] Comment: NEGATIVE FOR INTRAEPITHELIAL LESION AND MALIGNANCY. FUNGAL ORGANISMS MORPHOLOGICALLY CONSISTENT WITH CORDELIA SPECIES ARE PRESENT. CELLULAR CHANGES ASSOCIATED WITH INFLAMMATION ARE PRESENT. THIS SPECIMEN WAS RESCREENED PART OF OUR BARBER OR BEAUTY SHOP MANAGER PROGRAM. Specimen Adequacy Comment 12:09 PM WOODWORKER HELPER [facility] Comment: Satisfactory for evaluation. Endocervical and/or squamous metaplastic cells (endocervical component) are present. Performed by Comment 08/16/2017 12:09 PM WOODWORKER HELPER [facility] Comment:Marjan Chapman, Named Account Executive ([facility]) QC Reviewed by Comment 08/16/2017 12:09 PM WOODWORKER HELPER [facility] Comment:Makayla Alonso Named Account Executive ([facility]) Comment . 08/16/2017 12:09 PM WOODWORKER HELPER [facility] Pathologist Provided ICD10 Comment 08/16/2017 12:09 PM WOODWORKER HELPER [facility] Comment:R87.5 Note Comment 08/16/2017 12:09 PM WOODWORKER HELPER [facility] Comment: The Pap smear is a screening test designed to aid in the detection of premalignant and malignant conditions of the uterine cervix. It is not a diagnostic procedure and should not be used as the sole means of detecting cervical cancer. Both false-positive and false-negative reports do occur. Note Comment 08/16/2017 12:09 PM WOODWORKER HELPER [facility] Comment: The HPV DNA reflex criteria were not met with this specimen result therefore, no HPV testing was performed. Pathology/Cytolo gy ENTIRE ENDOCERVIX / Unknown Collection / Unknown 08/06/2017 4:01 PM WOODWORKER HELPER 08/06/2017 4:21 PM WOODWORKER HELPER Narrative [facility] - 08/16/2017 12:09 PM WOODWORKER HELPER Performed at: [address] [place], [place] [address]Lamont flores W [id number] Tobacco Checkout Clerk: Cele Ren MD, Phone: [phone] Specimen Comment: Source.............Endocervix Specimen Comment: LMP / Prev Treat...None Specimen Comment: No. of containers..01 ThinPrep Vial Yolette Peters MD LAB - PATHOLOGY/CYT OLOGY ORDERABLES Performing Organization Address City/[facility]/ZIP Co de Phone Number [facility] [address] [address] * CHLAMYDIA + GC AMPLIFIED PROBE (08/06/2017 4:01 PM WOODWORKER HELPER) Only the most recent of5 resultswithin the time period is included. Pathologist [facility] Chlamydia Amplified Probe Negative Negative 08/09/2017 8:18 AM WOODWORKER HELPER [facility] GC Amplified Probe Negative Negative 08/09/2017 8:18 AM WOODWORKER HELPER [facility] Microbiology ENTIRE ENDOCERVIX / Unknown Collection / Unknown 08/06/2017 4:01 PM WOODWORKER HELPER 08/06/2017 4:21 PM WOODWORKER HELPER Narrative [facility] - 08/09/2017 8:18 AM WOODWORKER HELPER Results based on detection/no detection of ribosomal RNA by amplified method. Yolette Peters MD LAB - MICROBIOLOGY ORDERABLES Performing Organization Address [facility] Co de Phone Number [facility] [address] [phone] * HCG URINE QUALITATIVE - POINT OF CARE (IP) (08/06/2017 3:00 PM WOODWORKER HELPER) Only the most recent of6 resultswithin the time period is included. Pathologist [facility] HCG Qual Urine Negative Negative [facility] QC Verified Yes Yes [facility] POC T TESTING Urine URINE / Unknown 08/06/2017 3 :00 PM WOODWORKER HELPER Yolette Peters MD LAB - POINT OF CARE ORDERABLES Performing Organization Address City/[facility]/ZIP Co de Phone Number [facility] [address] [place] [address], [facility] [phone] * IMAGING/RADIOLOGY/XRAY RESULTS ORDER (04/04/2017 10:06 PM CDT) Only the most recent of2 resultswithin the time period is included. Anatomical Region Laterality Modality Other Narrative 04/04/2017 10:06 PM CDT Ordered by an unspecified provider. Scanned Document IMAGING * (ABNORMAL) BLOOD GASES CORD LYDIA (ISTAT) (03/10/2017 9:37 AM CDT) pH Cord Venous POCT 7.27(L) 7.28 - 7.40 pH 03/10/2017 9:57 AM CDT [facility] pCO2 Cord Venous POCT 49(H) 35 - 45 mmHg 03/10/2017 9:57 AM CDT [facility] pO2 Cord Venous POCT 17(L) 22 - 33 mmHg 03/10/2017 9:57 AM CDT [facility] HCO3 Cord Arterial POCT 23 22 - 24 mmol/L 03/10/2017 9:57 AM CDT [facility] BE Cord Venous POCT Calc -5 -6.4 - 1.6 mmol/L 03/10/2017 9:57 AM CDT [facility] TCO2 Cord Venous POCT 24 22 - 30 mmol/L 03/10/2017 9:57 AM CDT [facility] O2 Saturation % Cord Venous Calc POCT 20 % 03/10/2017 9:57 AM CDT [facility] Site CORD LYDIA 03/10/2017 9:57 AM CDT [facility] Sample iSTAT CORD V 03/10/2017 9:57 AM CDT [facility] Blood CORD BLOOD SPECIMEN / Unknown 03/10/2017 9:37 AM CDT 03/10/2017 9:57 AM CDT Osorio Hall MD LAB - POINT OF CARE ORDERABLES [facility] [address] [place], [place] [phone] * GROSS + MICRO EXAM (STL) (03/10/2017 9:35 AM CDT) Case Report Surgical Pathology Report Case: [id number] Authorizing Provider: Meenakshi Willett MD Collected: 03/10/2017 09:35 AM Ordering Location: [facility] LDR Received: 03/11/2017 07:29 AM Pathologist: Mc Roa MD Specimen: Placenta 03/12/2017 1:37 PM [facility] Final Diagnosis 1. Placenta: -- Third trimester placenta, 550 grams -- Three-vessel umbilical cord with no pathologic changes -- Chorioamniotic membranes with no pathologic diagnosis FLORENTIN/REYNA/lisbet 03/12/2017 1:37 PM [facility] Gross Description The specimen is [...] parenchyma with no thrombi, necrosis or infarction. Rice Drier sections are submitted as follows: A1 - umbilical cord and membranes A2/A3 - placental parenchyma /bijan 03/12/2017 1:37 PM [facility] Microscopic Description Microscopic examination reveals a three-vessel umbilical cord showing no evidence of funisitis or thrombosis. The chorioamniotic membranes show no evidence of inflammation and meconium is not identified. The chorionic villi are small, mature, and well vascularized with no evidence of villitis or infarction. The decidua basalis and chorionic plate show no pathologic changes. FLORENTIN/Andrei 03/12/2017 1:37 PM [facility] Disclaimer All histochemical and/or immunohistochemical results are interpreted with controls that demonstrate appropriate staining reactions before reporting results. Note on use of immunocytochemistry reagents: This test was developed and its performance characteristic determined by [facility], Department of Laboratory Medicine. It has not been cleared or approved by the U.S. Food and Drug Administration (FDA). The FDA has determined that such clearance or approval is not necessary. The test is used for clinical purpose. It should not be regarded as investigational or for research. This laboratory is certified to perform high complexity testing. 03/12/2017 1:37 PM CDT [facility] Embedded Images 03/12/2017 1:37 PM CDT [facility] Pathology/Cytolo gy ENTIRE PLACENTA / Unknown 03/10/2017 9:35 AM CDT 03/11/2017 7:29 AM CDT Meenakshi Willett MD LAB - PATHOLOGY/CYTO LOGY ORDERABLES Performing Organization Address City/[facility]/ZIP Co de Phone Number [facility] [address] [place], [place] [phone] * (ABNORMAL) BLOOD GASES CORD ART (ISTAT) (03/10/2017 9:33 AM CDT) pH Cord Arterial POCT 7.25 7.20 - 7.34 pH 03/10/2017 9:57 AM T [facility] pCO2 Cord Arterial POCT 53.3 45 - 55 mmHg 03/10/2017 9:57 AM T [facility] pO2 Cord Arterial POCT 19 12 - 25 mmHg 03/10/2017 9:57 AM CDT [facility] HCO3 Cord Arterial POCT 23.6 22 - 24 mmol/L 03/10/2017 9:57 AM T [facility] BE Cord Arterial POCT -4(L) -2.9 - 8.3 mmol/L 03/10/2017 9:57 AM T [facility] TCO2 Cord Arterial POCT 25 mmol/L 03/10/2017 9:57 AM T [facility] O2 Saturation Cord Art % Calc POCT 23 % 03/10/2017 9:57 AM CDT [facility] Site CORD ART 03/10/2017 9:57 AM CDT [facility] Sample iSTAT CORD A 03/10/2017 9:57 AM T [facility] Blood CORD BLOOD SPECIMEN / Unknown 03/10/2017 9:33 AM CDT 03/10/2017 9:57 AM CDT Osorio Hall MD LAB - POINT OF CARE ORDERABLES Performing Organization Address City/[facility]/ZIP Co de Phone Number [facility] [address] [place] [phone] * (ABNORMAL) URINALYSIS ROUTINE AUTO (03/07/2017 5:33 PM CDT) Only the most recent of3 resultswithin the time period is included. Color UA Yellow Straw, Yellow, Dark Yellow 03/07/2017 5:51 PM CDT [facility] Clarity UA Clear 03/07/2017 5:51 PM CDT [facility] Specific [place] UA 1.010 1.005 - 1.030 03/07/2017 5:51 PM CDT [facility] pH UA 7.0 5.0 - 8.0 pH 03/07/2017 5:51 PM CDT [facility] Protein UA Negative Negative 03/07/2017 5:51 PM CDT [facility] Blood UA Negative Negative 03/07/2017 5:51 PM CDT [facility] Leukocyte UA 2+(A) Negative 03/07/2017 5:51 PM CDT [facility] Nitrite UA Negative Negative 03/07/2017 5:51 PM CDT [facility] Glucose UA Negative Negative 03/07/2017 5:51 PM CDT [facility] Ketone UA Negative Negative 03/07/2017 5:51 PM CDT [facility] Bilirubin UA Negative Negative 03/07/2017 5:51 PM CDT [facility] Urobilinogen UA 0.2 0.1 - 1.0 EU/dL 03/07/2017 5:51 PM CDT [facility] WBC UA Auto 2-5 0-2, 2-5 # /hpf 03/07/2017 5:51 PM CDT [facility] RBC UA Auto 2-5 0-2, 2-5 # /hpf 03/07/2017 5:51 PM CDT [facility] Epithelial Cell UA Auto 5-10(A) 0-2, 2-5 # /hpf 03/07/2017 5:51 PM CDT [facility] Bacteria UA Auto 1+(A) None seen 03/07/20 17 5:51 PM CDT [facility] Urine URINE SPECIMEN OBTAINED BY CLEAN CATCH PROCEDURE / Unknown Collection / Unknown 03/07/2017 5:33 PM CDT 03/07/2017 5:38 PM CDT Yolette Peters MD LAB - URINALYSIS OR DERABLES Performing Organization Address [facility] Co de Phone Number [facility] [address] [place], [place] [phone] * PT PTT PANEL (03/07/2017 5:33 PM CDT) Pathologist [facility] PT 9.6 9.5 - 11.6 sec 03/07/2017 5:57 PM CDT [facility] INR 0.9 0.9 - 1.1 03/07/2017 5:57 PM CDT [facility] PTT 22.4 21.0 - 32.0 sec 03/07/2017 5:57 PM CDT [facility] Blood BLOOD SPECIMEN / Unknown Venipuncture / Unknown 03/07/2017 5:33 PM CDT 03/07/2017 5:38 PM CDT Narrative [facility] - 03/07/2017 5:57 PM CDT Conventional Warfarin Anticoagulant Therapy: INR Reference Range: 2.0-3.0 Intensive Warfarin Anticoagulant Therapy: INR Reference Range: 2.5-3.5 Heparin Therapeutic Range for PTT: 47.7 - 68.6 seconds. Yolette Peters MD LAB - COAGULATION O JEN Performing Organization Address [facility] Co de Phone Number [facility] [address] [place] [phone] * (ABNORMAL) FIBRINOGEN ACTIVITY (03/07/2017 5:33 PM CDT) Pathologist [facility] Fibrinogen 500(H) 200 - 400 mg/dL 03/07/2017 5:57 PM CDT [facility] Blood BLOOD SPECIMEN / Unknown Venipuncture / Unknown 03/07/2017 5:33 PM CDT 03/07/2017 5:38 PM CDT Yolette Peters MD LAB - COAGULATION O RDERASTACIE Performing Organization Address [facility] Co de Phone Number [facility] [address] [place] [phone] * (ABNORMAL) CULTURE STREP B (03/03/2017 12:11 PM CDT) Culture Streptococcus agalactiae (Group B)(AA) CHELA 03/04/2017 3:27 PM CDT [facility]CRO[facility] Microbiology MISCELLANEOUS SAMPLES / Unknown Collection / Unknown 03/03/2017 12:11 PM CDT 03/03/2017 1:00 PM CDT Narrative [facility] MICRO[facility] - 03/04/2017 3:27 PM CDT Susceptibility testing of penicillin, other beta-lactam antibiotics, and vancomycin is not necessary for beta-hemolytic streptococci groups A,B,C and G because resistant strains have not been recognized. Yessenia Gonzales [employer]-PERFORMANCE IMPROVEMENT COORDINATOR LAB - MICROBIO LOGY ORDERABLES Performing Organization Address

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
--- OUTSIDE RECORDS SUMMARY | 2024-10-25 17:58 | XMS_ITS | Encounter Summary ---
Author Organization [facility] Address [address] [place] [address] Care Team Providers Care Senior Software Development Manager Name Role Phone Andres Angela MD Unavailable [phone] Andres Angela MD Unavailable [phone] Pcp, Carolina Eid Primary Care Provider Unav ailable Reason for Referral * (Routine) - Open Specialty Diagnoses / Procedures Referred By Contlance diana Referred To Contact Diagnoses Aversion to food Abnormal ultrasound High-risk in third trimester (HCC) Previous baby with growth restriction 37 weeks gestation of ([facility]) Procedures BIOPHYSICAL PROFILE W Yoeslin Hidalgo MD [address] [place] [address] Referral ID Status Reason Start Date Expiration Date Visits Re quested Visits Authorized [id number] Open 10/24/2024 10/24/2025 2 2 CTOR SPECIALTY Reason for Visit * Reason Comments Biophysical Profile Ultrasound Non-stress Test * (Routine) - Open Specialty Diagnoses / Procedures Referred By Contlance diana Referred To Contact Diagnoses Aversion to food Abnormal ultrasound High-risk in third trimester (HCC) Previous baby with growth restriction 37 weeks gestation of ([facility]) Procedures BIOPHYSICAL PROFILE W Yoselin Hidalgo MD [address] [place] [address] Referral ID Status Reason Start Date Expiration Date Visits Re quested Visits Authorized [id number] Open 10/24/2024 10/24/2025 2 2 Encounter Details Date Type Department Care Team (Latest Contact Info) Description 10/24/2024 1:45 PM DIRECTOR SPECIALTY - 10/24/2024 11:59 PM DIRECTOR SPECIALTY Hospital Encounter [facility] Maternal & [facility] [address] [place], [place] [id number] Vinicius Panchal MD [address] [facility] [address] [place] [address] Discharge Disposition: Home or Self Care [...] Comments Blood Pressure 115/71 10/24/2024 2:25 PM DIRECTOR SPECIALTY Pulse 76 10/24/2024 2:25 PM DIRECTOR SPECIALTY Temperature - - Respiratory Rate - - [...] Progress Notes * Shweta Valerio RN - 10/24/2024 2:27 PM CST Patient here today for NST/BPP performed at GA 35w6d for SGA. Patient reports positive movement. Denies cramping, bleeding, and leakage of fluid. Patient reports feeling contractions last nightfor about 1.5 hours 4 mins apart spacing to 6 mins apart and then she fell asleep. Patient marked 2contractions on NST today at 1404 and 1415. One contraction at 1404 seen on NST lasting 60 secs. Reviewed labor precautions with patient. Patient denies headache, epigastric pain and visual changes. VS per flowsheet. NST reviewed with Dr. Panchal in office today as reactive. Shweta Valerio RN 10/24/2024 2:29 PM CTOR SPECIALTY documented in this encounter Plan of Treatment Upcoming Encounters Date Type Department Care Team (Late st Contact Info) Description 10/31/2024 1:45 PM DIRECTOR SPECIALTY Hospital Encounter [facility] [address] [place] [phone] 11/07/2024 1:45 PM DIRECTOR SPECIALTY Hospital Encounter [facility] [address] [place] [phone] 11/14/2024 1:45 PM DIRECTOR SPECIALTY Appointment [facility] [address] [place] [phone] 11/21/2024 1:45 PM DIRECTOR SPECIALTY Appointment [facility] [address] [place] [phone] documented as of this encounter Procedures Procedure Name Priority Date/Time Associated Diagnosis Comments BIOPHYSICAL PROFILE W NST Routine 10/24/2024 1:59 PM DIRECTOR SPECIALTY Aversion to food: limiting protein intake Abnormal ultrasound: dopplers elevated S/d ratio High-risk in third trimester (HCC) Previous baby with growth restriction 37 weeks gestation of (HCC) documented in this encounter Results * BIOPHYSICAL PROFILE W NST (10/24/2024 1:59 PM DIRECTOR SPECIALTY) Linked Results Indication ======== SGA and mildly reduced UA EDBF Incomplete Anatomy Screen Ectopic x2 History ====== OB History 6. Para 1 [id number] 1. live 2016. Gest. age 36 w [...] 4 lb 10 oz EFW by Hadlock ([id number]) IUGR Growth Overview = Exam date GA [...] at 37 weeks gestation. Coding ====== Procedures 60696: [place] [address]: Biophysical Profile W NST 68546: Umbilical Doppler 35376: MCA Doppler [facility] [place] PACS Anatomical Region Laterality Modality Other 10/24/2024 1:59 PM DIRECTOR SPECIALTY R Reed Leslie MD [facility] ORDERABLES documented in this encounter Visit Diagnoses Diagnosis Encounter for maternal care for suspected poor growth in roman in third trimester ([facility])- Primary Aversion to food: limiting protein intake Feeding difficulties and mismanagement Abnormal ultrasound: dopplers elevated S/d ratio Abnormal findings on screening High-risk in third trimester ([facility]) Previous baby with growth restriction 36 weeks gestation of ([facility]) state, incidental 37 weeks gestation of ([facility]) state, incidental Encounter for maternal care for suspected poor growth in roman in third trimester ([facility])- Primary Aversion to food: limiting protein intake Feeding difficulties and mismanagement Abnormal ultrasound: dopplers elevated S/d ratio Abnormal findings on screening High-risk in third trimester ([facility]) Previous baby with growth restriction 36 weeks gestation of ([facility]) state, incidental Encounter for maternal care for suspected poor growth in roman in third trimester ([facility])- Primary Aversion to food: limiting protein intake Feeding difficulties and mismanagement Abnormal ultrasound: dopplers elevated S/d ratio Abnormal findings on screening High-risk in third trimester ([facility]) Previous baby with growth restriction 37 weeks gestation of ([facility]) state, incidental documented in this encounter Care Teams Senior Software Development Manager Relationship Specialty Start Date End Date Pcp, Carolina Eid PCP - General 04/16/23 Andres Angela MD Psychiatry 12/16/18 Andres Angela MD Psychiatry 11/16/19 documented as of this encounter
[2024-10-25 18:00] VITALS: BP 122/69; PULSE 76
--- NOTE | 2024-10-25 18:14 | OBADM ---
This patient, Marnie Jones, admitted to the OB room Labor/Delivery/Recovery 108 for observation. Patient/family oriented to hospital policies and general routines including ID bracelet, bed and alarms, visiting hours, pain management, procedures, bathroom and other care routines, personal items, smoking policy, room service/diet, and visiting hours. Patient/Family are encouraged to report perceived risks to care and to ask questions if they do not understand what they are told or what they should do.
--- NOTE | 2024-10-26 10:48 | PM.OBTRLD ---
OB - Triage/Final Diagnosis Visit Information Comments/Additional reasons for admission: I have assessed the risk for this patient, Marnie Jones, and determined that she would benefit from observation care. Evaluation Vital signs: Vital Signs - 24 hr 10/25/24 18:00 10/25/24 18:13 Pulse Rate 76 Blood Pressure 122/69 Oxygen Delivery Room Air Final Diagnosis (1) Vaginal discharge during : Code(s): O26.899 - Other specified related conditions, unspecified trimester; N89.8 - Other specified noninflammatory disorders of vagina Status: Acute
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
--- OUTSIDE RECORDS SUMMARY | 2024-10-27 06:47 | XMS_ITS | Data Portability ---
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 Plan of Treatment [...] + TIBC + ferritin, serum 2023 024 [facility] (Lab), [address], [place], [address], 08/31/2024 11:33:26 Referral None recorded. Procedures None recorded. Surgeries None recorded. Imaging US, obstetric , follow-up [address]23 [email or web address], [address], [place], [address], 08/09/2024 21:16:39 US, doppler, umbilical artery velocimet ry 2023 024 [email or web address] [address], [address], [place], [address], 08/09/2024 21:16:39 Medication Orders valacyclo vir 500 mg tablet 2024 025 [email or web address] [id number], [address], [place], [place], [id number], 10/11/2024 23:07:24 Patient TargetsNo targets recorded. Patient InstructionsNo instructions recorded. Reason for Referral None Reported. Results Created Date Observation Date Name Description Value Unit Range Abnormal Flag Note LastModifiedBy Organization Detail LastModifiedTime 08/30/20 24 08/30/2024 HEMOG LOBIN (HGB) HGB 10.0 g/dL (based on docume nted legal sex) 11.6-1 5.4 low Not Available [facility] (Lab) [address], [place], [address], 08/31/2024 11:33:25 08/30/20 24 08/30/2024 HEMAT OCRIT (HCT) HCT 31.7 % (based on docume nted legal sex) 34.0-4 5.0 low Not Available [facility] (Lab) [address], [place], [address], 08/31/2024 11:33:25 08/30/20 24 08/30/2024 GTT - GESTA AUGUSTINE Linh DOMINGO N, ACOG OB glucose, 1 hour screen 90 mg/dL 70-135 Not Available [facility] (Lab) [address], [place], [address], 08/31/2024 11:33:25 08/30/20 24 08/30/2024 LIBIA TIN / IRON / TRANS LIBIA N / TIBC iron 45 ug/dL 40-170 Not Available [facility] (Lab) [address] [place], [address], 08/31/2024 11:33:26 08/30/20 24 08/30/2024 LIBIA TIN / IRON / TRANS LIBIA N / TIBC transferrin 394 mg/dL 200-36 0 high Not Available [facility] (Lab) [address], [place], [address], 08/31/2024 11:33:26 08/30/20 24 08/30/2024 LIBIA TIN / IRON / TRANS LIBIA N / TIBC ferritin 7.9 NG/mL 8.0-25 2.0 low Not Available [facility] (Lab) [address], [place], [address], 08/31/2024 11:33:26 08/30/20 24 08/30/2024 LIBIA TIN / IRON / TRANS LIBIA N / TIBC TIBC 552 ug/dL 250-45 0 high Not Available [facility] (Lab) [address], [place], [address], 08/31/2024 11:33:26 08/30/20 24 08/30/2024 LIBIA TIN / IRON / TRANS LIBIA N / TIBC iron saturation 8 % 20-55 low Not Available [facility] (Lab) [address], [place], [address], 08/31/2024 11:33:26 08/30/20 24 08/30/2024 HIV 1/2 ANTIG EN/AN TIBOD Y, REFLE X CONFI RMATI ON HIV antigen/anti body Nonrea ctive nonrea ctive HIV-1 antig en and HIV-1 /HIV- 2 antib odies were not detec roxane. No labor atory evide nce of HIV infec tion. Not Available [facility] (Lab) [address], [place], [address], 08/31/2024 11:33:26 08/30/20 24 08/30/2024 RPR SCREE N, REFLE X TITER /CONF IRMAT ION RPR screen Nonrea ctive nonrea ctive Not Available [facility] (Lab) [address], [place], [address], 08/31/2024 11:33:27 07/10/20 24 07/10/2024 US, obste tric, 2nd or 3rd trime ster No observ ation record ed. [email or web address] On[facility] [address], [place], [address], 07/10/2024 18:08:14 07/10/20 24 07/10/2024 US, obste tric, follo w-up No observ ation record ed. [email or web address] [address], [place], [address], 07/10/2024 14:30:51 08/09/20 24 08/09/2024 US, obste tric, follo w-up No observ ation record ed. [email or web address] [address] [address], [place], [address], 08/09/2024 18:07:39 08/09/20 24 08/09/2024 US, doppl er, umbil ical arter y veloc imetr y No observ ation record ed. [email or web address] [address] [address], [place], [address], 08/09/2024 18:07:49 08/09/20 24 08/09/2024 US, obste tric, follo w-up No observ ation record ed. [email or web address] [address] [facility], [place], [address], 08/10/2024 09:26:35 08/16/20 24 08/16/2024 US, obste tric, follo w-up No observ ation record ed. [email or web address] [address] [place], [address], 08/21/2024 14:35:01 08/16/20 24 08/16/2024 US, obste tric, follo w-up No observ ation record ed. [email or web address] [address], [address], 08/21/2024 18:44:08 08/16/20 24 08/16/2024 US, obste tric, follo w-up No observ ation record ed. [address] [facility], [place], [address], 08/21/2024 14:35:41 08/23/20 24 08/23/2024 US, obste tric, follo w-up No observ ation record ed. [address] [facility] [address] [facility], [place], [address], 08/24/2024 12:17:03 08/30/20 24 08/30/2024 US, obste tric, follo w-up No observ ation record ed. [place] [address], [place], [address], 09/07/2024 15:05:47 08/30/20 24 08/30/2024 US, obste tric, follo w-up No observ ation record ed. [address] [facility] [address] [place] [address], [address], 09/07/2024 14:59:51 09/19/20 24 09/19/2024 US, salin e infus ed uteru s No observ ation record ed. [facility] [address] [place] [address], [address], 09/21/2024 17:09:16 09/19/20 24 09/19/2024 US, obste tric, follo w-up No observ ation record ed. [email or web address] [place] [address], [place], [address], 09/21/2024 17:07:07 10/03/19 25 10/03/2024 US, obste tric, follo w-up No observ ation record ed. [email or web address] [facility] [address] [place] [address], [address], 10/04/2024 11:09:59 10/03/19 25 10/03/2024 US, obste tric, follo w-up No observ ation record ed. [email or web address] [address], [place], [address], 10/04/2024 11:17:58 10/10/19 25 10/10/2024 US, obste tric, follo w-up No observ ation record ed. [email or web address] [facility] [address] [place] [address], [address], 10/11/2024 09:24:29 10/11/19 25 10/10/2024 US, obste tric, follo w-up No observ ation record ed. [facility] [address] [place] [address], [address], 10/11/2024 11:16:37 10/17/19 25 10/17/2024 US, salin e infus ed uteru s No observ ation record ed. [email or web address] [facility] [address] [place] [address], [address], 10/18/2024 22:07:34 10/18/19 25 10/17/2024 US, obste tric, follo w-up No observ ation record ed. [email or web address] [address], [place], [address], 10/22/2024 22:44:55 10/24/19 25 10/24/2024 US, obste tric, follo w-up No observ ation record ed. [facility] [address] [place] [address], [address], 10/24/2024 16:25:09 10/24/19 25 10/24/2024 US, obste tric, bioph ysica l profi le + non-s tress test No observ ation record ed. [email or web address] [facility] [address], [place], [address], 10/25/2024 10:40:06 10/25/19 25 10/24/2024 US, obste tric, follo w-up No observ ation record ed. [email or web address] [facility] [address] [place], [address], 10/27/2024 07:39:43 Result Notes None recorded. Problems Name Problem SNOMED Code Status Onset Date Resolution Date Notes Provider Name and Address Organization Details Recorded Time Prediabet es 304454597 Active 2023 MARY CAMPBELL MD [address], [place], [address], [place] [facility] 4 17:19:44 25177386 Active 2023 Cyndeesheng Perezfestus [facility], [facility] 4 19:05:42 Herpes simplex 83191938 Active valtrex at 36wks Lulú Ram lizbeth, [facility] 4 14:38:56 Herpes simplex 19338127 Active valtrex at 36wks Lulú Ram lizbeth, [facility] 4 14:38:56 Past history of premature delivery 372259690 Active 36wks 3Katelin Ram lizbeth, [facility] 4 14:41:25 Past history of premature delivery 400882756 Active 36wks 3Katelin nieves, [facility] 4 14:41:25 Placenta circumval rgicel 4403738 Active 32 week growth Lulú Ram lizbeth [facility] 4 14:30:07 Placenta circumval gricel 9377220 Active 32 week growth us Lulú nieves, [facility] 4 14:30:07 growth restricti on Active EFW 9% antental testing [facility] weekly on Tuesdays [facility] recommend 37wk delivery Lulú nieves, [facility] 5 18:41:13 growth restricti on Active EFW 9% antental testing [facility] weekly on Tues[facility] recommend 37wk delivery Lulú nieves, [facility] 5 18:41:13 Problem Notes None recorded. Procedures Surgical History Date Name Laterality Status Provider Name and Address Organization Details Recorded Time 02/22/20 24 SIS completed MARY CAMPBELL MD [address], [place], [address], [facility] 02/22/2024 14:59:37 10/22/19 24 Dilation and Curettage completed Mary Anne Foley [facility] 04/11/2024 16:28:40 06/04/20 23 Date of Last Pap Smear completed Jennifer Gaspar [facility] 01/26/2024 09:35:03 06/20/20 20 arm destructive procedure completed Mary Anne Foley [facility] 04/11/2024 16:29:31 Imaging Results Imaging Date Name Status LastModified by Organiz ation Details LastModified Time 07/10/2024 US, obstetric, 2nd or 3rd trimester completed [email or web address] [address], [place], [address], 07/10/2024 18:08:14 07/10/2024 US, obstetric, follow-up completed [email or web address] [address], [place], [address], 07/10/2024 14:30:51 08/09/2024 US, obstetric, follow-up completed [email or web address] [address] [address], [place], [address], 08/09/2024 18:07:39 08/09/2024 US, doppler, umbilical artery velocimetry completed [email or web address] [address], [place], [address], 08/09/2024 18:07:49 08/09/2024 US, obstetric, follow-up completed [address], [place], [address], 08/10/2024 09:26:35 08/16/2024 US, obstetric, follow-up completed [address], [address], 08/21/2024 14:35:01 08/16/2024 US, obstetric, follow-up completed [address], [address], 08/21/2024 18:44:08 08/16/2024 US, obstetric, follow-up completed [address], [address], 08/21/2024 14:35:41 08/23/2024 US, obstetric, follow-up completed [address] [facility] [address] [place], [address], 08/24/2024 12:17:03 08/30/2024 US, obstetric, follow-up completed [facility] [address], [place], [address], 09/07/2024 15:05:47 08/30/2024 US, obstetric, follow-up completed [email or web address] [facility] [address], [place], [address], 09/07/2024 14:59:51 09/19/2024 US, saline infused uterus completed [email or web address] [facility] [address], [address], 09/21/2024 17:09:16 09/19/2024 US, obstetric, follow-up completed [email or web address] [address] [place], [place], [address], 09/21/2024 17:07:07 10/03/2024 US, obstetric, follow-up completed [email or web address] [facility] [address], [address], 10/04/2024 11:09:59 10/03/2024 US, obstetric, follow-up completed [email or web address] [place] [address], [place], [address], 10/04/2024 11:17:58 10/10/2024 US, obstetric, follow-up completed [email or web address] [facility] [address] [place], [address], 10/11/2024 09:24:29 10/10/2024 US, obstetric, follow-up completed [email or web address] [facility] [address], [address], 10/11/2024 11:16:37 10/17/2024 US, saline infused uterus completed [email or web address] [facility] [address], [address], 10/18/2024 22:07:34 10/17/2024 US, obstetric, follow-up completed [email or web address] [place] [address], [place], [address], 10/22/2024 22:44:55 10/24/2024 US, obstetric, follow-up completed [facility] [address] [place], [address], 10/24/2024 16:25:09 10/24/2024 US, obstetric, biophysical profile + non-stress test completed [email or web address] [facility] [address], [place], [address], 10/25/2024 10:40:06 10/24/2024 US, obstetric, follow-up completed [facility] [address] [place], [address], 10/27/2024 07:39:43 Procedure Notes None recorded. Medical Equipment None [...] Updated DateTime 08/09/2024 156.21 cm 32.3 kg/m2 60578.07 238 g 116 mm[Hg] 77 mm[Hg] [facility] 4 14:50:01 Date Recorded Body height Body mass index (BMI) Body weight Systolic blood pressure Diastolic blood pressure Provider Name and Address Organization Details Last Updated DateTime 08/30/2024 156.21 cm 32.5 kg/m2 96196.66 475 g 119 mm[Hg] 82 mm[Hg] [facility] 4 14:10:09 Date Recorded Body height Body mass index (BMI) Body weight Systolic blood pressure Diastolic blood pressure Provider Name and Address Organization Details Last Updated DateTime 09/27/2024 156.21 cm 33.5 kg/m2 75984.34 5074 g 103 mm[Hg] 71 mm[Hg] [facility] 5 09:54:28 Date Recorded Body height Body mass index (BMI) Body weight Systolic blood pressure Diastolic blood pressure Provider Name and Address Organization Details Last Updated DateTime 10/11/2024 156.21 cm 33.3 kg/m2 20719.03 g 115 mm[Hg] 76 mm[Hg] [facility] 5 14:13:39 Social History Question Answer Notes LastModified by Organizat ion Details LastModified Time Tobacco Smoking Status Current Every Day Smoker Mary Anne nieves, [facility] 04/11/2024 16:28:24 Do You Have An Advance Directive? No Information not available 07/24/2022 What Is Your Level Of Alcohol Consumption? None [email or web address] Information not available 04/11/2024 If You Are , What Was Your Level Of Alcohol Consumption Prior To ? Occasional [email or web address] Information not available 04/11/2024 How Many Years [...] Or The Highest Degree You Have Received? [id number] Information not available 07/24/2022 Are There Any [...] Anxious, Or Unable To Sleep At Night)? [id number] Information not available 07/24/2022 Do You Use [...] have difficulty walking or climbing stairs? No [email or web address] Information not available 10/05/2023 Are you able to walk? [email or web address] Information not available 07/24/2022 Are you able to care for yourself? Yes [email or web address] Information not available 10/05/2023 Do you have difficulty dressing or bathing? No [email or web address] Information not available 10/05/2023 What is your [...] SNOMED-CT Code Diagnosis ICD10 Code Diagnosis Note [id number] Karen Queen [facility] [address] [address] 07/24/2022 14:19:51 07/24/2022 14:55:54 Sexually transmitted infectious disease 6148524 A64 STD screen updated. Vaginitis 48511381 N76.0 Suspect BV/YeastRx sentSTD screen sent per request Counseled on medication R/B's, Most common side effects, & use. All questions were answered to patient satisfacti on. Hx reviewed & updated Time spent in visit is a total of 30 mins with at least 50% of visit consisting of counseling and review of plan of care. [id number] Karen Queen [facility] [address],[place] [address] 08/31/2022 12:26:39 08/31/2022 13:01:57 Labial cyst 001911946 N90.7 Today we reviewed HSV vs Folliculit [...] counseling and review of plan of care. [id number] MARY CAMPBELL MD [facility] [address] [address] 06/04/2023 15:59:50 06/07/2023 16:18:19 Gynecologic examination 13800450 Z01.419 Well woman care- Cervical cancer screening: Pap smear obtained today, will follow up on the results with the patient as they become available- HPV immunizati on: has not received, discussed and recommende d today- STD testing: received- hereditary cancer screening: does not qualify for testing [facility] 762095989 Z30.9 - patient desires BCPs, will give sample of Slynd today- discussed smoking cessation prior to starting estrogen containing pills [id number] MARY CAMPBELL MD [facility] [address],[place] [address] 07/05/2023 16:24:45 07/06/2023 08:55:12 Pain in pelvis 82657790 R10.2 - pain started 06/24 with ovulation- patient concerned as pain and other symptoms are similar to ectopic - UPT negative in office- low suspicion for ectopic - likely 10/22 mittelschm ertz vs MSK vs GI illness- pelvic US to r/o ovarian cysts [id number] [facility] [address],[place] [address] 09/10/2023 16:26:51 09/12/2023 09:20:20 Past history of ectopic 739255316 Z87.59 Z3A.01 [id number] [facility] [address],[place] [address] 09/21/2023 16:58:04 09/22/2023 09:47:42 Past history of ectopic 366428325 Z87.59 Z3A.01 [id number] MARY CAMPBELL MD [place] [address] [address] 10/05/2023 15:35:25 10/12/2023 08:56:05 Missed miscarriage 53886278 O02.1 Z3A.01 - US demonstrat es enlarged YS with GS, no embryo, no cardiac activity- c/w missed miscarriag e- discussed expectant vs medical vs surgical management with patient, who is undecided- returns home on 10/10, will discuss with him and decide at that time- warning signs and return precaution s discussed [id number] Emily [facility] [address],[place] [address] 10/05/2023 15:36:12 10/05/2023 16:16:08 Missed miscarriage 84732396 O02.1 Z3A.01 [id number] MARY CAMPBELL MD [place] [address],[place] [address] 01/26/2024 09:28:55 01/27/2024 03:54:53 Recurrent miscarriage 858624968 N96 - s/p 2 consecutiv e miscarriag [...] at this time [id number] MARY CAMPBELL MD [facility] [address],[place] [address] 02/22/2024 13:56:25 02/22/2024 15:09:28 Recurrent miscarriage 325480850 N96 - s/p 2 consecutiv e miscarriag es- hx of 1 in 2017- POC from suction D&C shows 92 XXXX- discussed potential causes of recurrent miscarriag es including APLS, thyroid disease, diabetes, structural (polyps, fibroids, mullerian anomalies, scar tissue), abnormal parental karyotypes .- labwork unremarkab le aside from prediabeti c A1c- SIS performed today, will follow up with results as available [id number] [facility] [address],[place] [address] 02/22/2024 13:56:49 02/22/2024 14:57:12 Recurrent miscarriage 172624934 N96 [id number] [facility] [address],[place] [address] 03/24/2024 12:26:47 03/24/2024 13:32:00 History of poor outcome 5666382652 56380 Z87.59 Z3A.01 [facility] [address],[place] [address] 04/11/2024 15:24:38 04/11/2024 16:03:18 MARY CAMPBELL MD [facility] [address],[place] [address] 04/11/2024 15:25:02 04/11/2024 17:19:15 Amenorrhea 44496584 N91.2 Z32.01 1. Exam today within normal [...] orders given today Venereal d isease screening 509543617 Z11.3 screening 2437 54153 Z36.0 Genetic in vestigation procedure 93053972 Z31.430 [id number] Emily Tran [facility] [address],[place] [address] 05/09/2024 14:29:23 05/09/2024 15:19:46 screening 364625570 Z36.82 Z3A.11 [id number] MARY CAMPBELL MD [facility] [address],[place] [address] 05/09/2024 14:29:45 05/10/2024 09:35:04 Routine care 372919863 Z34.90 Prediabetes 459506489 R7 3.03 - metformin 500mg dialy Gestation period, 11 weeks 08704443 Z3A.11 [id number] Shakila Maria [facility] [address],[place] [address] 05/17/2024 15:33:20 05/18/2024 09:03:43 48273746 Z33.1 [id number] MARY CAMPBELL MD [facility] [address],[place] [address] 06/07/2024 16:27:21 06/07/2024 17:09:26 Routine care 132773786 Z34.90 - continue PNV [id number] Shavonne Downey [facility] [address],[place] [address] 07/10/2024 10:34:36 07/10/2024 11:41:39 screening for malformation 907403193 Z36.3 Z3A.20 [id number] MARY CAMPBELL MD [facility] [address],[place] [address] 07/10/2024 10:34:58 07/10/2024 12:34:00 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 - growth wnl at anatomy 36%, repeat at 32 weeks Gestation period, 20 weeks 24009957 Z3A.20 - continue PNV [id number] Emily Tran [facility] [address],[place] [address] 08/09/2024 14:03:15 08/09/2024 14:50:15 screening 996114476 Z36.2 O43.112 Z3A.25 [id number] MARY CAMPBELL MD [facility] [address],[place] [address] 08/09/2024 14:03:37 08/09/2024 15:28:03 growth restriction 68422470 O36.5999 Past pregn karan history of premature delivery 480497438 Z87.51 Placenta circumvallata 7487525 O43.119 - growth wnl at anatomy 36%, repeat at 32 weeks Gestation period, 25 weeks 65823678 Z3A.25 [id number] MARY CAMPBELL MD [facility] [address],[place] [address] 08/30/2024 14:01:59 08/30/2024 14:38:08 Gestation period, 28 weeks 09211927 Z3A.28 - GCT and labs today- discussed Tdap Past pregn karan history of premature delivery 212347656 Z87.51 Placenta circumvallata 6573270 O43.119 - growth wnl at anatomy 36%, normal at [facility] today (16%) [id number] MARY CAMPBELL MD [facility] [address],[place] [address] 09/27/2024 09:49:01 10/04/2024 03:15:31 growth restriction 55996542 O36.5999 - following with [facility] Gestation period, 32 weeks 8507700 Z3A.32 - continue PNV [id number] MARY CAMPBELL MD [facility] [address] [address] 10/11/2024 14:09:37 10/12/2024 05:26:59 Herpes simplex 74894382 B00.9 - will start valtrex for suppressio n until delivery grow th restriction 68457513 O36.5999 - following with MFM, testing scheduled- recommend 38 week delivery, will schedule for 11/08 Gestation period, 34 weeks 06568078 Z3A.34 Health Concerns Section Related Observation LastModified by Organization Detai ls LastModified Time None Recorded Concern Status LastModified by Organization Details LastModified Time None Recorded Advance Directives Directive N: Payers Encounter Date Sequence Insurance Name Policy Number Policy Barba Covered Member ID Barba Member ID Guarantor Name 08/09/2024 1 [employer] ON OR AFTER 03/20/21 (MEDICAID REPLACEMENT - HMO) Marnie Jones [id number] Marnie Jones 08/09/2024 1 [employer] ON OR AFTER 03/20/21 (MEDICAID REPLACEMENT - HMO) Marnie Jones [id number] Marnie Jones 08/30/2024 1 [employer] ON OR AFTER 03/20/21 (MEDICAID REPLACEMENT - HMO) Marnie Jones [id number] Marnie Jones 09/27/2024 1 [employer] ON OR AFTER 03/20/21 (MEDICAID REPLACEMENT - HMO) Marnie Jones [id number] Marnie Jones 10/11/2024 1 [employer] ON OR AFTER 03/20/21 (MEDICAID REPLACEMENT - HMO) Marnie Jones [id number] Marnie Jones OBGyn Episode Ob Episode Information Episode Created Date Number of Fetuses Patient Bloodtype Patient rh Status Prepregnancy Weight lbs Domestic Partner Domestic Partner Phone Father Name [employer] Architect Status 07/24/20 22 1 CLOSED Fetus Data First Name Last Name Admitted to NICU Weight (g) Sex Living Outcome Pediatric Complications Fetus ID Race Codes Race Delivery Type 1360.77 6 F Prematur e 28546 Vaginal Delivery Karri Calculation Initial Karri Date [...] Domestic Partner Domestic Partner Phone Father Name [employer] Architect Status 01/26/20 24 1 CLOSED Fetus Data First Name Last Name Admitted to NICU Weight (g) Sex Living Outcome Pediatric Complications Fetus ID Race Codes Race Delivery Type , Spontane ous [id number] Karri Calculation Initial Karri Date Initial Exam [...] Domestic Partner Domestic Partner Phone Father Name [employer] Architect Status 05/09/20 24 1 A Positive OPEN Fetus Data First Name Last Name Admitted to NICU Weight (g) Sex Living Outcome Pediatric Complications Fetus ID Race Codes Race Delivery Type [id number] Problems Problem Notes -EFW 3% AC <1% S/D Ratio mid ly elevated for GA - MFM referral faxed to [facility] 08/09 - pt request to see [facility] referral sent 08/23 & 08/30 US & OV 1030 09/19 0815 NST & US [facility] 10/02 US & NST 10/24 [facility] recommend 37 week delivery , 2wkly testing , [facility] on Wednesday or MF due to abnormal doppler and ac <3% 2/4 report Problem Name Start Date End Date Resolution Snomed Code Not e Placenta circumvallata [id number] 32 week growth us growth restriction [id number] EFW 9% antental testing [facility] weekly on MFM recommend 37wk delivery Past history of premature delivery [id number] 36wks 3# Herpes simplex [id number] valtr ex at 36wks Karri Calculation Initial [...] Weight in lbs Pre/Post Dialysis Refused Weight 174.252645846294 BP Diastolic BP Location Tested BP Systolic BP Type 80 127 Fetus Heart Rate Present A 160 Fetus Movement A Yes Comments Patient presents to [facility] care. Doing well, nausea minimal. No [...] U/S and movement noted. Pt reassured. Shakila Heck, RN Flowsheet Date 06/07/2024 Zamora Score Blood Edema Fundus Height Fundus Units Glucose Ketones Leukocytes Nitrite Labor Signs Protein Cervic Dilation Cervic Effacement Cervic Station neg 16 cm none trace Type Weight in lbs Pre/Post Dialysis Refused 168.853966207959 BP Diastolic BP Location Tested BP Systolic [...] Type Weight in lbs Pre/Post Dialysis Refused 171.895710090365 BP Diastolic BP Location Tested BP Systolic [...] Type Weight in lbs Pre/Post Dialysis Refused 174.82513517719 BP Diastolic BP Location Tested BP Systolic [...] Type Weight in lbs Pre/Post Dialysis Refused 175.312915998202 BP Diastolic BP Location Tested BP Systolic BP Type 82 L arm 119 sitting Fetus Heart Rate Present A Present Fetus Movement A Yes Comments Doing well, good movem ent. No cramping or bleeding. US wnl at [facility] today, AC and EFW 16%. UADs slightly [...] Type Weight in lbs Pre/Post Dialysis Refused 180.569924312845 BP Diastolic BP Location Tested BP Systolic [...] Weight in lbs Pre/Post Dialysis Refused Weight 179.215768103937 BP Diastolic BP Location Tested BP Systolic BP Type 76 L arm 115 sitting Fetus Heart Rate Present A 145 Fetus Movement A Yes Comments Patient c/o of slight nausea , along with [place], cramping the past 3 days. Good movement. Was seen by MFM, FGR at 9%. UADs wnl. Monitoring at [facility]. Recommend 38 week delivery due to FGR. Patient voices understanding, plan for MIL 11/08. Discussed GBS swab for next visit. [...] Domestic Partner Domestic Partner Phone Father Name [employer] Architect Status 01/26/20 24 1 CLOSED Fetus Data First Name Last Name Admitted to NICU Weight (g) Sex Living Outcome Pediatric Complications Fetus ID Race Codes Race Delivery Type , Spontane ous [id number] Karri Calculation Initial Karri Date Initial Exam [...] Domestic Partner Domestic Partner Phone Father Name [employer] Architect Status 10/05/19 24 1 CLOSED Fetus Data First Name Last Name Admitted to NICU Weight (g) Sex Living Outcome Pediatric Complications Fetus ID Race Codes Race Delivery Type Ectopic [id number] Karri Calculation Initial Karri Date Initial Exam [...] Domestic Partner Domestic Partner Phone Father Name [employer] Middle[employer] 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
--- OUTSIDE RECORDS SUMMARY | 2024-10-27 06:47 | XMS_ITS | Encounter Summary ---
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 Not on file Not on file Not on file documented as of this encounter Plan of Treatment Upcoming Encounters Date Type Department Care Team (Late st Contact Info) Description 11/19/2024 Hospital Encounter [address] [address] Gal Bass MD [address] [facility] [phone] [place] [address] documented as of this encounter Procedures Procedure Name Priority Date/Time Associated Diagnosis Comments SCAN - RADIOLOGY/IMAGING 03/03/2021 documented in this encounter Results * SCAN - RADIOLOGY/IMAGING (03/03/2021) Anatomical Region Laterality Modality Other us Provider Scanning Final Result documented in this encounter Visit Diagnoses Not on filedocumented in this encounter Care Teams Senior Engineering Team Leader Relationship Specialty Start Date End Date Brian Velarde DO [address] [place] [address] PCP - General Family Practice 07/25/20 documented as of this encounter
--- OUTSIDE RECORDS SUMMARY | 2024-10-27 06:47 | XMS_ITS | Clinical Summary ---
Author Organization [facility] Address [address] [place] [address] Phone Care Team Providers Care System Analyst Name Role Phone Unavailable Primary Care Provider Unavailabl e Active Problems Problem Noted Date Diagnosed Date Poor growth affecting management of mother in second trimester 08/16/2024 Encounters Date Type Department Care Team Description 10/17/2024 External Device Data [facility] ABSTRACTION Provider, Abstract 10/11/2024 External Device Data [facility] ABSTRACTION Provider, Abstract 10/11/2024 External Device Data [facility] ABSTRACTION Provider, Abstract 08/23/2024 10:00 AM TIMBER RIDER - 08/23/2024 11:59 PM TIMBER RIDER Hospital Encounter [facility] Maternal and Ground [facility] [address] [place] [phone] Sheila Chang MD Discharge Disposition: Home or Self Care 08/22/2024 External Device Data [facility] ABSTRACTION Provider, Abstract 08/16/2024 2:45 PM TIMBER RIDER Initial [facility] [place] [address] [place] [address] Sheila Chang MD Poor growth affecting management of mother in second trimester, single or unspecified fetus (Primary Dx); 26 weeks gestation of 08/16/2024 1:30 PM TIMBER RIDER - 08/16/2024 11:59 PM TIMBER RIDER Hospital Encounter [facility] Maternal and Ground Floor [address] [place] [phone] Mary Campbell MD Discharge Disposition: Home or Self Care 08/10/2024 Orders Only [facility] Maternal and Ground Floor [address] [place] [address] Mary Campbell MD Poor growth affecting management [...] Comments Blood Pressure 113/66 08/16/2024 3:27 PM TIMBER RIDER Pulse 90 08/16/2024 3:27 PM TIMBER RIDER Temperature - - Respiratory Rate - - Oxygen Saturation - - Inhaled Oxygen Concentration - - Weight 79.4 kg (175 lb) 08/16/2024 3:27 PM TIMBER RIDER Height 154.9 cm (5' 1 ) 08/16/2024 3:27 PM TIMBER RIDER Body Mass Index 33.07 08/16/2024 3:27 PM TIMBER RIDER Plan of Treatment Health Maintenance Due Date [...] LTD+UMB ART DOPPLER Routine 08/23/2024 10:31 AM TIMBER RIDER Poor growth affecting management of mother in second trimester, fetus 1 of multiple gestation US OB DETAIL SINGLE GEST Routine 08/16/2024 2:58 PM TIMBER RIDER Abnormal head circumference in relation to growth and age standard from Last 3 Months Results * US OB LTD+UMB ART DOPPLER (08/23/2024 10:31 AM TIMBER RIDER) Anatomical Region Laterality Modality Pelvis Ultrasound 08/23/2024 11:1 5 AM TIMBER RIDER Narrative 08/23/2024 10:40 AM TIMBER RIDER STL LIMITED ----- Pat. Name: MARNIE JONES Study Date: 08/23/2024 11:15am Pat. NO: [id number] Referring MD: MARY CAMPBELL MD Site: [facility] Dean: Latanya Boss RDMS : 1995 Age: 28 ----- INDICATION ----- Intrauterine Growth Restriction (IUGR) Circumvallate Placenta History of PTL/PTD in Previous , Currently CODING ----- Diagnoses Z3A.27: Weeks of gestation O09.212: Supervision of with history of pre-term labor O43.112: Circumvallate placenta O36.5920: Maternal care for other known or suspected poor growth Procedures 19101: Ultrasound, uterus, real time with image documentation, limited one or more fetuses 77242: Doppler velocimetry, ; umbilical artery 98485: Doppler velocimetry, ; middle cerebral artery METHOD [...] PI 1.91 47% [place] RI 0.83 67% [facility]court PS 40.41 cm/s PS 1.15 MoM ED 6.82 cm/s S / D 5.93 CPR PI 1.26 2% Ebbing GROWTH OVERVIEW ----- Exam date GA BPD (mm) HC (mm) AC (mm) FL (mm) HL (mm) EFW (g) 08/16/2024 26w 0d 65.1 50% 233.7 11% 197.9 7% 49.5 57% 44.8 63% 813 20% COMMENT ----- Patient's name and date of were verified by the tunnel heading inspector prior to the exam. IMPRESSION ----- Viable [...] testing and ultrasounds in the center at [place] if she chooses. Procedure Note Chandler Salas MD - 08/23/2024 ST LIMITED ----- Pat. Name:Pedrito JONES Date:08/23/2024 11:15am Pat. NO: [id number] MD:MARY CAMPBELL [facility] RDMS :1995Age:28 ----- INDICATION ----- Intrauterine Growth Restriction (IUGR) Circumvallate Placenta History of PTL/PTD in Previous , Currently CODING ----- Diagnoses Z3A.27: Weeks of gestation O09.212: Supervision of with history ofpre-term labor O43.112: Circumvallate placenta O36.5920: Maternal care for other known orsuspected poor growth Procedures 61845: Ultrasound, uterus, real time withimage documentation, limited one or more fetuses 52458: Doppler velocimetry, ; umbilicalartery 59973: Doppler velocimetry, ; middle cerebralartery METHOD ----- Transabdominal ultrasound examination ----- Vora . Number of fetuses: 1 DATING ----- GA by prior [id number] w + 0 d WILLIE by prior [...] and date of were verified by the tunnel heading inspector prior tothe exam. IMPRESSION ----- Viable at [...] testing and ultrasounds in the [facility] at [place] if she chooses. us Sheila Chang MD US ORDERABLES Final Result * US OB DETAIL SINGLE GEST (08/16/2024 2:58 PM TIMBER RIDER) Anatomical Region Laterality Modality Pelvis Ultrasound 08/16/2024 1:58 PM TIMBER RIDER Narrative 08/16/2024 2:56 PM TIMBER RIDER STL COMP ----- Pat. Name: MARNIE JONES Study Date: 08/16/2024 1:58pm Pat. NO: [id number] Referring MD: Site: [facility] Dean: Clair Hicks RDMS : 1995 Age: 28 [...] Z36.3: Encounter for screening for malformations Procedures 58838: Ultrasound, uterus, real time with image documentation, and maternal evaluation plus detailed anatomic examination, transabdominal approach 35757: Doppler velocimetry, ; umbilical artery 57569: Doppler velocimetry, ; middle cerebral artery METHOD [...] 1 lb 13 oz EFW by Hadlock ([id number]) Head / Face / Neck Biometry: Prosthetist 3.6 mm CM 5.0 mm 14% Nicolaides [...] view. RVOT view. LVOT view. 3-vessel view. 8-foipss-aykbrld view. Situs. Aortic arch view. Ductal arch [...] and date of were verified by the tunnel heading inspector before the exam IMPRESSION ----- Vora @ [...] Pat. Name:Pedrito JONES Date:08/16/2024 1:58pm Pat. NO: [id number] MD: [facility] RDMS :1995Age:28 ----- INDICATION ----- Anatomy Survey low risk NIPT Intrauterine Growth Restriction (IUGR) Circumvallate Placenta History of PTL/PTD in Previous , 36 weeks PPROM Currently CODING ----- Diagnoses Z3A.26: Weeks of gestation O09.212: Supervision of with history ofpre-term labor O43.112: Circumvallate placenta O36.5920: Maternal care for other known orsuspected poor growth Z36.3: Encounter for screening formalformations Procedures 39112: Ultrasound, uterus, real time withimage documentation, and maternal evaluation plus detailed anatomic examination,transabdominal approach 55577: Doppler velocimetry, ; umbilicalartery 52416: Doppler velocimetry, ; middle cerebralartery METHOD ----- Transabdominal ultrasound examination ----- Vora . Number of fetuses: 1 DATING ----- Method of dating:based on stated WILLIE GA by prior w + 0 d WILLIE by prior [...] 1 lb 13 oz EFW by Hadlock ([id number]) Head / Face / Neck Biometry: Prosthetist 3.6 mm CM 5.0 mm 14%Nicolaides Inner [...] 4-chamber view. RVOT view. LVOT view. 3-vesselview. 3-jcsxqe-usrrijp view. Situs. Aortic arch view. Ductal arch [...] and date of were verified by the tunnel heading inspector beforethe exam IMPRESSION ----- Vora @ 26w [...]
--- OUTSIDE RECORDS SUMMARY | 2024-10-27 06:48 | XMS_ITS | Patient Health Summary ---
Author Organization [facility] Address [address] [place] [address] Care Team Providers Care Container Washer Name Role Phone Andres Angela MD Unavailable [phone] Andres Angela MD Unavailable [phone] Pcp, Carolina Eid Primary Care Provider Unav ailable Note from [facility],non-owned Affiliates and Associated Physician Practices is amultiple site organization consisting of ambulatory clinics and hospital sitesin [place], [place]. This disclosure is being madepursuant to the Care Everywhere program and may not contain all information available regarding this patient. Last updated 18.[facility] Allergies No known active allergies Medications * [...] Comments Blood Pressure 115/71 10/24/2024 2:25 PM DEVELOPMENT ADMINISTRATOR Pulse 76 10/24/2024 2:25 PM DEVELOPMENT ADMINISTRATOR Temperature 37 C (98.6 F) 12/04/2020 10:16 AM CDT Respiratory Rate 18 12/04/2020 10:16 AM CDT Oxygen Saturation 100% 10/03/2024 9:11 AM DEVELOPMENT ADMINISTRATOR Inhaled Oxygen Concentration - - Weight 79.2 kg (174 lb 9.6 oz) 08/30/2024 11:33 AM DEVELOPMENT ADMINISTRATOR Height 154.9 cm (5' 1 ) 12/04/2020 10:16 AM CDT Body Mass Index 32.99 12/04/2020 10:16 AM CDT Procedures * BIOPHYSICAL PROFILE W NST(Performed 10/24/2024) Performed for Aversion to food: limiting protein intake, Abnormal ultrasound: dopplers elevated S/d ratio, High-risk in third trimester ([facility]), Previous baby with growth restriction, 37 weeks gestation of ([facility]) * BIOPHYSICAL PROFILE W NST(Performed 10/17/2024) Performed for Encounter for maternal care for suspected poor growth in roman inthird trimester ([facility]), Aversion to food: limiting protein intake, Abnormal ultrasound: dopplers elevated S/d ratio, High-risk in third trimester ([facility]), Encounter for screening ([facility]) * BIOPHYSICAL PROFILE W NST(Performed 10/10/2024) Performed for Encounter for maternal care for suspected poor growth in roman inthird trimester ([facility]), Aversion to food: limiting protein intake, Abnormal ultrasound: dopplers elevated S/d ratio, High-risk in third trimester ([facility]), Encounter for screening ([facility]) * BIOPHYSICAL PROFILE W NST(Performed 10/03/2024) Performed for Encounter for maternal care for suspected poor growth in roman inthird trimester ([facility]), Aversion to food: limiting protein intake, Abnormal ultrasound: dopplers elevated S/d ratio, High-risk in third trimester ([facility]), Encounter for screening ([facility]) * BIOPHYSICAL PROFILE W NST(Performed 09/19/2024) Performed for Encounter for maternal care for suspected poor growth in roman inthird trimester ([facility]), Aversion to food: limiting protein intake, Abnormal ultrasound: dopplers elevated S/d ratio, High-risk in third trimester ([facility]), Encounter for screening ([facility]) * SONOGRAM - COMPLETE(Performed 08/30/2024) Performed for SGA (small for gestational age) ([facility]), Encounter for anatomic survey ([facility]) * US OB LESS 14 WKS W TRANSV W DOPP(Performed 12/04/2020) Performed for Threatened miscarriage ([facility]), Vaginal bleeding in , first trimester ([facility]) [...] supervision of normal first in first trimester ([facility]) * BLOOD GASES CORD ART (ISTAT)(Performed 03/10/2017) [...] mother, third trimester, notapplicable or unspecified fetus ([facility]) * CULTURE URINE(Performed 03/07/2017) Performed for IUGR (intrauterine growth restriction) affecting care of mother, third trimester, notapplicable or unspecified fetus ([facility]) * EKG 12-LEAD(Performed 03/05/2017) Performed for Tachycardia * TSH(Performed 03/05/2017) Performed for IUGR (intrauterine growth restriction) affecting care of mother, third trimester, notapplicable or unspecified fetus ([facility]) * COMPREHENSIVE METABOLIC PANEL(Performed 03/05/2017) Performed for IUGR (intrauterine growth restriction) affecting care of mother, third trimester, notapplicable or unspecified fetus ([facility]) * CBC W AUTO DIFFERENTIAL(Performed 03/05/2017) Performed for IUGR (intrauterine growth restriction) affecting care of mother, third trimester, notapplicable or unspecified fetus ([facility]) * CULTURE STREP B(Performed 03/03/2017) Performed for Encounter for supervision of normal first in first trimester ([facility]) * GLUCOSE PROTEIN KETONE URINE - POINT OF CAR(Performed 03/03/2017) Performed for Encounter for supervision of normal first in first trimester ([facility]) * BIOPHYSICAL PROFILE W NST(Performed 02/26/2017) Performed for Uterine size date discrepancy , third trimester ([facility]) * BIOPHYSICAL PROFILE W NST(Performed 02/24/2017) Performed for Uterine size date discrepancy , third trimester ([facility]) * CHLAMYDIA + GC AMPLIFIED PROBE(Performed 02/24/2017) Performed for Vaginal discharge * GLUCOSE PROTEIN KETONE URINE - POINT OF CAR(Performed 02/24/2017) Performed for Encounter for supervision of normal first in first trimester ([facility]) * BIOPHYSICAL PROFILE W NST(Performed 02/17/2017) Performed for Uterine size date discrepancy , third trimester ([facility]) * GLUCOSE PROTEIN KETONE URINE - POINT OF CAR(Performed 02/17/2017) Performed for Encounter for supervision of normal first in first trimester ([facility]) * BIOPHYSICAL PROFILE W NST(Performed 02/10/2017) Performed for Uterine size date discrepancy , third trimester ([facility]) * SONOGRAM - LIMITED(Performed 02/04/2017) * TYPE + SCREEN PANEL(Performed 02/03/2017) * CBC W AUTO DIFFERENTIAL(Performed 02/03/2017) * COAGULATION PANEL W D-DIMER(Performed 02/03/2017) * BIOPHYSICAL PROFILE W NST(Performed 02/03/2017) Performed for Uterine size date discrepancy , third trimester ([facility]) * URINE MICROSCOPIC ONLY REFLEX TO CULTURE(Performed 01/31/2017) Performed for Encounter for supervision of normal first in first trimester ([facility]) * URINALYSIS REFLEX MICROSCOPIC REFLEX CULTURE(Performed 01/31/2017) Performed for Encounter for supervision of normal first in first trimester ([facility]) * VAS BILATERAL VENOUS DUPLEX LE(Performed 01/26/2017) Performed for SOB (shortness of breath) * XR CHEST 2VW(Performed 01/26/2017) Performed for SOB (shortness of breath) * URINALYSIS REFLEX MICROSCOPIC REFLEX CULTURE(Performed 01/26/2017) Performed for Encounter for supervision of normal first in first trimester ([facility]) * CULTURE URINE(Performed 01/26/2017) Performed for Encounter for supervision of normal first in first trimester ([facility]) * EKG 12-LEAD(Performed 01/26/2017) Performed for SOB (shortness of breath) * SONOGRAM - COMPLETE(Performed 01/25/2017) * GLUCOSE PROTEIN KETONE URINE - POINT OF CAR(Performed 01/25/2017) Performed for Encounter for supervision of normal first in first trimester ([facility]) * RPR(Performed 01/25/2017) Performed for Encounter for supervision of normal first in first trimester ([facility]) * CBC W AUTO DIFFERENTIAL(Performed 01/25/2017) Performed for Encounter for supervision of normal first in first trimester ([facility]) * GLUCOSE CHALLENGE(Performed 01/25/2017) Performed for Encounter for supervision of normal first in first trimester ([facility]) * IMAGING/RADIOLOGY/XRAY RESULTS ORDER(Performed 12/25/2016) * GLUCOSE PROTEIN KETONE URINE - POINT OF CAR(Performed 12/01/2016) Performed for Encounter for supervision of normal first in first trimester ([facility]) * CULTURE URINE(Performed 11/03/2016) Performed for Encounter for supervision of normal first in first trimester ([facility]) * GLUCOSE PROTEIN KETONE URINE - POINT OF CAR(Performed 11/03/2016) Performed for Encounter for supervision of normal first in first trimester ([facility]) * SONOGRAM - COMPLETE(Performed 11/03/2016) Performed for Encounter for supervision of normal first in first trimester ([facility]), Gastroesophageal reflux disease without esophagitis * GLUCOSE PROTEIN KETONE URINE - POINT OF CAR(Performed 10/06/2016) Performed for Encounter for supervision of normal first in first trimester ([facility]) * CBC W AUTO DIFFERENTIAL(Performed 09/04/2016) Performed for Encounter for supervision of normal first in first trimester ([facility]) * TYPE + SCREEN PANEL(Performed 09/04/2016) Performed for Encounter for supervision of normal first in first trimester ([facility]) * RPR(Performed 09/04/2016) Performed for Encounter for supervision of normal first in first trimester ([facility]) * RUBELLA IMMUNE STATUS(Performed 09/04/2016) Performed for Encounter for supervision of normal first in first trimester ([facility]) * HEPATITIS B SURFACE ANTIGEN W RFLX CONFIRMATION(Performed 09/04/2016) Performed for Encounter for supervision of normal first in first trimester ([facility]) * CYSTIC FIBROSIS MUTATION PANEL(Performed 09/04/2016) Performed for Encounter for supervision of normal first in first trimester ([facility]) * URINALYSIS REFLEX TO MICROSCOPIC NO CULTURE(Performed 09/04/2016) Performed for Encounter for supervision of normal first in first trimester ([facility]) * HEMOGLOBIN ELECTROPHORESIS(Performed 09/04/2016) Performed for Encounter for supervision of normal first in first trimester ([facility]) * HIV-1 HIV-2 ANTIBODY + HIV P24 AG PANEL(Performed 09/04/2016) Performed for Encounter for supervision of normal first in first trimester ([facility]) * OBSTETRIC PANEL (BEAKER)(Performed 09/04/2016) Performed for Encounter for supervision of normal first in first trimester ([facility]) * CHLAMYDIA + GC AMPLIFIED PROBE(Performed 09/04/2016) Performed for Encounter for supervision of normal first in first trimester ([facility]) * CULTURE URINE(Performed 09/04/2016) Performed for Encounter for supervision of normal first in first trimester ([facility]) * GLUCOSE PROTEIN KETONE URINE - POINT [...] BIOPHYSICAL PROFILE W NST (10/24/2024 1:59 PM DEVELOPMENT ADMINISTRATOR) Only the most recent of10 resultswithin the time period is included. Linked Results Indication ======== SGA and mildly reduced UA EDBF Incomplete Anatomy Screen Ectopic x2 History ====== OB History 6. Para 1 [id number] 1. live 2017. Gest. age 36 w [...] 4 lb 10 oz EFW by Hadlock ([id number]) IUGR Growth Overview = Exam date GA [...] at 37 weeks gestation. Coding ====== Procedures 34437: [place] [address]: Biophysical Profile W NST 61021: Umbilical Doppler 01022: MCA Doppler [employer] PACS Anatomical Region Laterality Modality Other 10/24/2024 1:59 PM DEVELOPMENT ADMINISTRATOR R Reed Leslie MD [facility] ORDERABLES * SONOGRAM - COMPLETE (08/30/2024 10:39 AM DEVELOPMENT ADMINISTRATOR) Only the most recent of5 resultswithin the time period is included. Linked Results Indication ======== SGA and Mildly Elevated UA Doppler on Outside Scan Ectopic x2 History ====== OB History 6. Para 1 [id number] Lab Tests Test Date Result NIPT Low [...] 2 lb 5 oz EFW by Hadlock ([id number]) Head / Face / Neck Biometry: Cephalic [...] adequately visualized: Heart / Thorax RVOT view. [id number] view. Aortic arch view. Ductal arch view. [...] separate MFM visit note. Coding ====== Procedures 51957: US Preg Uterus Detailed 12955: [facility]mbilical [facility] PACS Anatomical Region Laterality Modality Other 08/30/2024 10:3 9 AM DEVELOPMENT ADMINISTRATOR R Reed Leslie MD [facility] ORDERABLES * US OB LESS14 WK [...] on 12/04/2020 at 1:41 PM Madison Charles APRN-SPIKE MACHINE HEATER US ORDERABLES * (ABNORMAL) URINE MICROSCOPIC ONLY REFLEX TO CULTURE (12/04/2020 11:00 AM CDT) Only the most recent of5 resultswithin the time period is included. Reflex Status Culture not indicated 12/04/2020 11:30 AM CDT [facility] RBC UA 3-5 None Seen, 0-2, 3-5 # /hpf 12/04/2020 11:30 AM CDT [facility] WBC UA 0-5 None Seen, 0-5 # /hpf 12/04/2020 11:30 AM CDT [facility] Bacteria UA Trace(A) None Seen 12/04/2020 11:30 AM CDT [facility] Squamous Epithelial Cells 3-5 None Seen, 0-2, 3-5 /hpf 12/04/2020 11:30 AM CDT [facility] Mucus UA 1+ /LPF 12/04/2020 11:30 AM CDT [facility] Urine URINE SPECIMEN OBTAINED BY CLEAN CATCH PROCEDURE / Unknown Collection / Unknown 12/04/2020 11:00 AM CDT 12/04/2020 11:13 AM CDT Narrative [facility] - 12/04/2020 11:30 AM CDT Madison REYNOLDSSPIKE MACHINE HEATER LAB - URINALYSIS ORDERABLES [facility] [address] [place] [address] * (ABNORMAL) URINALYSIS REFLEX MICROSCOPIC REFLEX CULTURE (12/04/2020 11:00 AM CDT) Only the most recent of9 resultswithin the time period is included. Color UA Yellow Straw, Yellow 12/04/2020 11:22 AM CDT [facility] Clarity UA Cloudy(A) Clear 12/04/2020 11:22 AM CDT [facility] Glucose UA Negative Negative 12/04/2020 11:22 AM CDT [facility] Bilirubin UA Negative Negative 12/04/2020 11:22 AM CDT [facility] Ketone UA Negative Negative 12/04/2020 11:22 AM CDT [facility] Specific [place] UA 1.012 1.005 - 1.030 12/04/2020 11:22 AM CDT [facility] Blood UA 3+(A) Negative 12/04/2020 11:22 AM CDT [facility] pH UA 7.0 5.0 - 8.0 pH 12/04/2020 11:22 AM CDT [facility] Protein UA Negative Negative 12/04/2020 11:22 AM CDT [facility] Urobilinogen UA Negative Negative mg/dL 12/04/2020 11:22 AM CDT [facility] Nitrite UA Negative Negative 12/04/2020 11:22 AM CDT [facility] Leukocyte UA Negative Negative 12/04/2020 11:22 AM CDT [facility] Urine Microscopy Urine microscopy to follow 12/04/2020 11:22 AM CDT [facility] Reflex Status Culture not indicated 12/04/2020 11:22 AM CDT [facility] Urine URINE SPECIMEN OBTAINED BY CLEAN CATCH PROCEDURE / Unknown Collection / Unknown 12/04/2020 11:00 AM CDT 12/04/2020 11:13 AM CDT Narrative [facility] - 12/04/2020 11:22 AM CDT Madison BRANDT LAB - URINALYSIS ORDERABLES [facility] [address] [place] [address] * TYPE + SCREEN PANEL (12/04/2020 11:00 AM CDT) Only the most recent of4 resultswithin the time period is included. ABO Rh A POS 12/04/2020 11:55 AM CDT [facility] Comment:History checked. Antibody Screen NEG 11:55 AM CDT [facility] Blood Bank BLOOD SPECIMEN / Unknown Venipuncture / Unknown 12/04/2020 11:00 AM CDT 12/04/2020 11:14 AM CDT Madison BRANDT LAB - BLOOD BANK ORDERABLES [facility] [address] [phone] * (ABNORMAL) CBC W AUTO DIFFERENTIAL (12/04/2020 11:00 AM CDT) Only the most recent of11 resultswithin the time period is included. WBC 7.6 4.4 - 10.7 x10E9/L 12/04/2020 11:24 AM CDT [facility] WBC Corrected 12/04/2020 11:24 AM CDT [facility] RBC 4.58 3.80 - 5.20 x10E12/L 12/04/2020 11:24 AM CDT [facility] Hemoglobin 10.0(L) 12.0 - 15.6 gm/dL 12/04/2020 11:24 AM CDT [facility] Hematocrit 33.3(L) 35.9 - 45.5 % 12/04/2020 11:24 AM CDT [facility] MCV 72.7(L) 80.7 - 98.3 fl 12/04/2020 11:24 AM CDT [facility] MCH 21.8(L) 26.7 - 34.0 pg 12/04/2020 11:24 AM CDT [facility] MCHC 30.0(L) 30.8 - 35.9 gm/dL 12/04/2020 11:24 AM CDT [facility] Platelet Count 431(H) 153 - 416 x10E9/L 12/04/2020 11:24 AM CDT [facility] RDW-CV 18.9(H) 12.1 - 14.9 % 12/04/2020 11:24 AM CDT [facility] MPV 10.3 9.4 - 12.9 fl 12/04/2020 11:24 AM CDT [facility] Neutrophils % 54.7 44.0 - 73.0 % 12/04/2020 11:24 AM CDT [facility] Lymphocytes % 36.8 20.0 - 43.0 % 12/04/2020 11:24 AM CDT [facility] Monocytes % 6.1 5.0 - 13.0 % 12/04/2020 11:24 AM CDT [facility] Eosinophils % 1.7 0.0 - 6.0 % 12/04/2020 11:24 AM CDT [facility] Basophils % 0.4 0.0 - 2.0 % 12/04/2020 11:24 AM CDT [facility] Immature Granulocytes 0.3 0 - 1 % 12/04/2020 11:24 AM CDT [facility] Neutrophil Absolute 4.14 2.01 - 7.14 x10E9/L 12/04/2020 11:24 AM CDT [facility] Lymphocytes Absolute 2.78 1.07 - 3.94 x10E9/L 12/04/2020 11:24 AM CDT [facility] Monocytes Absolute 0.46 0.26 - 1.07 x10E9/L 12/04/2020 11:24 AM CDT [facility] Eosinophils Absolute 0.13 0 - 0.47 x10E9/L 12/04/2020 11:24 AM CDT [facility] Basophils Absolute 0.03 0 - 0.08 x10E9/L 12/04/2020 11:24 AM CDT [facility] Immature Granulocytes Absolute 0.02 0.00 - 0.06 x10E9/L 12/04/2020 11:24 AM CDT [facility] nRBC Auto 0 /100 WBC 12/04/2020 11:24 AM CDT [facility] Blood BLOOD SPECIMEN / Unknown Venipuncture / Unknown 12/04/2020 11:00 AM CDT 12/04/2020 11:14 AM CDT Madison Charles APRN-SPIKE MACHINE HEATER LAB - HEMATOLOGY ORDERABLES Performing Organization Address City/State/[facility] Co de Phone Number [facility] [address] [place] [address] * (ABNORMAL) COMPREHENSIVE METABOLIC PANEL (12/04/2020 11:00 AM CDT) Only the most recent of7 resultswithin the time period is included. [facility] Glucose 91 70 - 105 mg/dL 12/04/2020 11:34 AM CDT [facility] Sodium 138 136 - 145 mmol/L 12/04/2020 11:34 AM CDT [facility] Potassium 4.0 3.5 - 5.1 [...] CDT 12/04/2020 11:14 AM CDT Madison Charles GEOTECHNICAL FIELD TECHNICIAN-SPIKE MACHINE HEATER LAB - CHEMISTRY O RDERABLES [facility] [address] [place] [address] * HCG BETA BLOOD QUANTITATIVE (12/04/2020 11:00 AM CDT) Only the most recent of2 resultswithin the time period is included. hCG Quantitative 6.56 mIU/mL 12/05/19 11:41 AM CDT [facility] Blood BLOOD SPECIMEN / Unknown Venipuncture / Unknown 12/04/2020 11:00 AM CDT 12/04/2020 11:14 AM CDT Narrative [facility] - 12/04/2020 11:41 AM CDT [...] FSH >20 IU/L makes unlikely. Madison Charles APRN-SPIKE MACHINE HEATER LAB - CHEMISTRY O RDERABLES Performing Organization Address [facility] Co de Phone Number [facility] [address] [place] [address] * CARDIAC EKG ORDER (08/09/2019 8:11 PM DEVELOPMENT ADMINISTRATOR) Only the most recent of2 resultswithin the time period is included. Narrative 08/09/2019 8:11 PM DEVELOPMENT ADMINISTRATOR Ordered by an unspecified provider. Scanned Document CARDIAC SERVICES ORD ERABLES * CT THORAX ABDOMEN PELVIS W CONT (08/07/2019 8:18 PM DEVELOPMENT ADMINISTRATOR) Anatomical Region Laterality Modality Chest, Abdomen, Pelvis Computed Tomography 08/07/2019 8:30 PM DEVELOPMENT ADMINISTRATOR Impressions 08/07/2019 8:37 PM DEVELOPMENT ADMINISTRATOR No acute findings in the chest and abdomen. A trace of free fluid is visible in the pelvis in association with a 1.2 cm left adnexal cyst. Please see above for other findings. Reading Radiologist: Vincent Brooks MD on 08/07/2019 at 8:37 PM Narrative 08/07/2019 8:[address] CHEST, ABDOMEN AND PELVIS INDICATION: Back [...] 08/07/2019 at 8:37 PM Cortez Thuc Hang GEOTECHNICAL FIELD TECHNICIAN-SPIKE MACHINE HEATER CT ORDERABLES * CT CERVICAL SPINE NON CONTRAST (08/07/2019 7:54 PM DEVELOPMENT ADMINISTRATOR) Anatomical Region Laterality Modality Spine Computed Tomogra phy 08/07/2019 8:42 PM DEVELOPMENT ADMINISTRATOR Impressions 08/07/2019 8:43 PM DEVELOPMENT ADMINISTRATOR No fracture can be identified. Please see above. Reading Radiologist: Vincent Brooks MD on 08/07/2019 at 8:43 PM Narrative 08/07/2019 8:43 PM DEVELOPMENT ADMINISTRATOR Examination: CT Cervical Spine, without contrast. Information [...] or syntax problems by a trained medical sales associate. For questions about the report, please contact [...] or syntax problems by a trained medical sales associate. For questions about the report, please contact the Radiology Department. IMPRESSION No fracture can be identified. Please see above. Reading Radiologist: Vincent Brooks MD on 08/07/2019 at 8:43 PM Cortez Thuc Hang GEOTECHNICAL FIELD TECHNICIAN-SPIKE MACHINE HEATER CT ORDERABLES * CT HEAD NON CONTRAST (08/07/2019 7:53 PM DEVELOPMENT ADMINISTRATOR) Only the most recent of2 resultswithin the time period is included. Anatomical Region Laterality Modality Head Computed Tomogra phy 08/07/2019 8:23 PM DEVELOPMENT ADMINISTRATOR Impressions 08/07/2019 8:24 PM DEVELOPMENT ADMINISTRATOR No acute findings in the brain. Noncontrast brain CT. Please see above. Reading Radiologist: Vincent Brooks MD on 08/07/2019 at 8:24 PM Narrative 08/07/2019 8:24 PM DEVELOPMENT ADMINISTRATOR EXAMINATION: CT BRAIN WITHOUT CONTRAST. Information from [...] or syntax problems by a trained medical sales associate. Findings: There is no intracranial mass-effect or [...] or syntax problems by a trained medical sales associate. Findings: There is no intracranial mass-effect or [...] 08/07/2019 at 8:24 PM Cortez Thuc Hang GEOTECHNICAL FIELD TECHNICIAN-SPIKE MACHINE HEATER CT ORDERABLES * EKG 12-LEAD (08/07/2019 6:37 PM DEVELOPMENT ADMINISTRATOR) Only the most recent of6 resultswithin the time period is included. Ventricular Rate 83 BPM [facility] Atrial Rate 83 BPM [facility] P-R Interval 150 ms [facility] QRS Duration ms 82 ms [facility] Q-T Interval ms 366 ms [facility] QTC Calculation (Bezet) 430 ms [facility] Calculated P [place] 58 degrees [facility] Calculated R [place] 14 degrees [facility] Calculated T [place] 3 degrees [facility] Interpretation EKG Sinus rhythm with Premature atrial complexes with Aberrant conduction Otherwise normal ECG No previous ECGs available Confirmed by RADHA SAAVEDRA MD ([id number]) on 08/10/2019 9:02:54 AM [facility] 08/07/2019 6:37 PM DEVELOPMENT ADMINISTRATOR 08/10/2019 9:02 AM [facility] Reed Eng MD ECG ORDERABLES [facility] * (ABNORMAL) DRUG SCREEN TOX LIMITED BLD PNL 3 INHOUSE (08/07/2019 6:08 PM DEVELOPMENT ADMINISTRATOR) Only the most recent of2 resultswithin the time period is included. Pathologist [facility] Acetaminophen <3.0(L) 10.0 - 30.0 ug/mL 08/07/2019 7:21 PM DEVELOPMENT ADMINISTRATOR [facility] Ethanol <10.0 <10 mg/dL 08/07/2019 7:21 PM [facility] Salicylate <5.0(L) 15.0-<30.0 mg/dL 08/07/2019 7:21 PM [facility] Blood BLOOD SPECIMEN / Unknown Venipuncture / Unknown 08/07/2019 6:08 PM DEVELOPMENT ADMINISTRATOR 08/07/2019 6:11 PM DEVELOPMENT ADMINISTRATOR Narrative [facility] - 08/07/2019 7:21 PM [facility] ACETAMINOPHEN COMMENT Critical values: 4 Hours [...] may alter the peak level. Contact the [facility] at or reserved for healthcare professionals to assist you in evaluating potentially toxic acetaminophen levels. Reed Eng MD LAB - CHEMISTRY SANGITA ARAIZA Performing Organization Address City/[facility] Co de Phone Number [facility] [address] [place] [address] * PTT (08/07/2019 6:08 PM DEVELOPMENT ADMINISTRATOR) PTT 29.3 23.0 - 38.4 sec 08/07/2019 6:29 PM [facility] Blood BLOOD SPECIMEN / Unknown Venipuncture / Unknown 08/07/2019 6:08 PM DEVELOPMENT ADMINISTRATOR 08/07/2019 6:11 PM DEVELOPMENT ADMINISTRATOR Narrative [facility] - 08/07/2019 6:29 PM DEVELOPMENT ADMINISTRATOR Heparin Therapeutic Range for PTT: 71.0 - 109.0 seconds. Diego BRANDT [facility] - COAGULATIO N ORDERABLES Performing Organization Address [facility] Co de Phone Number [facility] [address] [place] [address] * (ABNORMAL) PT-INR (08/07/2019 6:08 PM DEVELOPMENT ADMINISTRATOR) PT 14.3 12.1 - 14.8 sec 08/07/2019 6:29 PM DEVELOPMENT ADMINISTRATOR [facility] INR 1.2(H) 0.9 - 1.1 08/07/2019 6:29 PM DEVELOPMENT ADMINISTRATOR [facility] Blood BLOOD SPECIMEN / Unknown Venipuncture / Unknown 08/07/2019 6:08 PM DEVELOPMENT ADMINISTRATOR 08/07/2019 6:11 PM DEVELOPMENT ADMINISTRATOR Narrative [facility] - 08/07/2019 6:29 PM DEVELOPMENT ADMINISTRATOR Conventional Warfarin Anticoagulant Therapy: INR Reference Range: 2.0-3.0 Intensive Warfarin Anticoagulant Therapy: INR Reference Range: 2.5-3.5 Diego BRANDT [facility] - COAGULATIO N ORDERABLES Performing Organization Address City/[facility]/ZIP Co de Phone Number [facility] [address] [place] [address] * LIPASE BLOOD (08/07/2019 6:08 PM DEVELOPMENT ADMINISTRATOR) Only the most recent of3 resultswithin the time period is included. Lipase 26 8 - 78 U/L 08/07/2019 6:32 PM DEVELOPMENT ADMINISTRATOR [facility] Blood BLOOD SPECIMEN / Unknown Venipuncture / Unknown 08/07/2019 6:08 PM DEVELOPMENT ADMINISTRATOR 08/07/2019 6:11 PM DEVELOPMENT ADMINISTRATOR Diego [facility] - CHEMISTRY ORDERABLES Performing Organization Address [facility] Co de Phone Number [facility] [id number] [place] [phone] * XR CERVICAL SPINE 2 OR 3 VWS (08/07/2019 1:24 PM DEVELOPMENT ADMINISTRATOR) Anatomical Region Laterality Modality Spine Radiographic Karen ging 08/07/2019 1:30 PM DEVELOPMENT ADMINISTRATOR Narrative 08/07/2019 1:30 PM DEVELOPMENT ADMINISTRATOR Cervical spine Indication for examination: Trauma with [...] SPINE 2 OR 3VW (08/07/2019 1:23 PM DEVELOPMENT ADMINISTRATOR) Anatomical Region Laterality Modality Spine Radiographic Karen ging 08/07/2019 1:30 PM DEVELOPMENT ADMINISTRATOR Narrative 08/07/2019 1:31 PM DEVELOPMENT ADMINISTRATOR Lumbar spine Indication for examination: Trauma with low back pain 3 views of the lumbar spine show no acute fracture. There is rotoscoliosis lumbar spine convex to the left. There is spina bifida occulta at S1. Disc space height is uniform. Articulations are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 ([facility]) Comment: RESULTS: Negative for 32 mutations [...] a carrier of cystic fibrosis, please contact [facility] at for a revised report. [...] Detection Ethnicity Rate Ashkenazi 10/15 to 97% Orthodoxy 10/14 to 90% (non-) -Moldovan to 69% 46 to 73% to 55% This interpretation is based on the clinical and family relationship information provided and the current understanding of the molecular genetics of this condition. MUTATIONS ANALYZED: G85E V520F S8352Y 2183AA to G R117H G542X R4963I 2184delA R334W S549N 394delTT 2789+5G to A R347H S549R 621+1G to T 3120+1G to A R347P G551D 711+1G to T 3659delC A455E R553X 1078delT 3849+10kbC to T HbnodS271 R560T 1717-1G to A 3876delA LrcwzO749 M2575E 1898+1G to A 3905insT METHODS/LIMITATIONS: DNA is isolated from the sample and tested for the 32 CF mutations on the [employer] Array Platform ([employer]). Regions of the CFTR gene are amplified enzymatically and subjected to a solution-phase multiplex allele-specific primer extension with subsequent hybridization to a bead array and fluorescence detection. Polymorphisms F508C, I506V and I507V are included in this panel to rule out false positive wwizbH132 homozygotes. Reflex testing of 5T is included in the panel for R117H interpretation. False positive or negative results may occur for reasons that include genetic variants, blood transfusions, bone marrow transplantation, erroneous representation of family relationships or contamination of a sample with maternal cells. REFERENCES: 1. Updates on Carrier Screening for Cystic Fibrosis. (2011) Am J Ob Gynecol 117(4):1706-6192 2. Errol et al. (2004) Shanthi Med 6:387-91 3. Chalo et al. (2002) Shanthi Med 4:379-391 4. Preconception and carrier screening for cystic fibrosis: (2001)ACOG.ACMG publication Results Released By: Vasile Pedersen, Ph.D., Baggage Inspector Released By: Vasile Pedersen, Ph.D., Director Comment Comment 09/15/2016 1:08 PM DEVELOPMENT ADMINISTRATOR [facility] ([facility]) Comment: The assay provides information intended [...] Unknown Venipuncture / Unknown 09/04/2016 11:20 AM DEVELOPMENT ADMINISTRATOR 09/04/2016 11:43 AM DEVELOPMENT ADMINISTRATOR Narrative [facility] ([facility]) - 09/15/2016 1:08 PM DEVELOPMENT ADMINISTRATOR Performed at: [address] [place] [id number] Airplane Cabin Attendant: Adeola Granados MD, Phone: [phone] Ignacia Roca MD LAB - HEMATOLOGY ORDERABLES [facility] [address] [place] [address] * LAB RESULTS ORDER (08/03/2013 3:05 AM DEVELOPMENT ADMINISTRATOR) Narrative 08/03/2013 3:05 AM DEVELOPMENT ADMINISTRATOR Ordered by an unspecified provider. Transcriptions Document, Scanned - 08/03/2013 3:05 AM CST Scanned Document LAB - THERAPEUTIC DR CARTAGENA MONITORING ORDERABLES * HCG URINE QUALITATIVE - POCT (IP) TANIA (12/04/2012 4:24 PM CDT) HCG Qual Urine Negative Negative [facility] POCT TESTING QC Verified Yes Yes [facility] PO CT TESTING Urine specimen (specimen) URINE / Unknown 12/04/2012 4:24 PM CDT Emmy Mccoy APRN-SPIKE MACHINE HEATER LAB - POINT OF CAR E ORDERABLES Performing Organization Address [facility] Co de Phone Number [facility] [address] [place] [address] * (ABNORMAL) URINALYSIS MICROSCOPIC ONLY (12/04/2012 4:19 PM CDT) RBC UA >100(A) 0-2, 2-5 # /hpf 12/04/2012 4:51 PM CDT [facility] WBC UA 5-10(A) 0-2, 2-5 # /hpf 12/04/2012 4:51 PM CDT [facility] Bacteria UA Trace None Seen, Trace 12/04/2012 4:51 PM CDT [facility] Epithelial Cell UA 2-5 0-2, 2-5 12/04/2012 4:51 PM CDT [facility] Mucus UA 1+ (none) 12/04/2012 4:51 PM CDT [facility] Urine specimen (specimen) URINE SPECIMEN OBTAINED BY CLEAN CATCH PROCEDURE / Unknown 12/04/2012 4:19 PM CDT 12/04/2012 4:28 PM CDT Emmy Darius STAUFFER-SPIKE MACHINE HEATER LAB - URINALYSIS O RDERABLES Performing Organization Address [facility] Co de Phone Number [facility] [address] [place] [address] Care Teams Container Washer Relationship Specialty Start Date End Date PcpCarolina PCP - General 04/16/23 Andres Angela MD Psychiatry 12/16/18 Andres Angela MD Psychiatry 11/16/19
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
--- NOTE | 2024-10-30 14:56 | PM.OBTRLD ---
OB - Triage/Final Diagnosis Visit Information Comments/Additional reasons for admission: I have assessed the risk for this patient, Marnie Jones, and determined that she would benefit from observation care. Final Diagnosis (1) Vaginal discharge during : Code(s): O26.899 - Other specified related conditions, unspecified trimester; N89.8 - Other specified noninflammatory disorders of vagina Status: Acute (2) Irregular contractions: Code(s): O47.9 - False labor, unspecified Status: Acute
== END 2024-10-25 18:16 | disposition home or self-care (01) ==
PROVIDERS: Admitting Provider Obstetrics & Gynecology; Visit Provider Obstetrics & Gynecology
DX: O26.899 Other specified pregnancy related conditions, unspecified trimester (principal); N89.8 Other specified noninflammatory disorders of vagina; Z3A.00 Weeks of gestation of pregnancy not specified
CPT/HCPCS: 99199

== ENCOUNTER 2024-11-01 00:09 | Inpatient (IN) | payer OTHER, SELFPAY ==
[2024-11-01] VITALS (146 sets, daily range): BP systolic 78–127; BP diastolic 38–80; PULSE 45–101; RESP 16–20; TEMP 36.2–36.9; O2SAT 81–100; BMI 34.9
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
--- OUTSIDE RECORDS SUMMARY | 2024-11-01 00:16 | XMS_ITS | Encounter Summary ---
Author Organization [facility] Address [address] 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 Not on file Not on file Not on file documented as of this encounter Plan of Treatment Upcoming Encounters Date Type Department Care Team (Late st Contact Info) Description 11/19/2024 Hospital Encounter [address] [address] Gal Bass MD [address] [facility] [phone] [place] [address] documented as of this encounter Procedures Procedure Name Priority Date/Time Associated Diagnosis Comments SCAN - RADIOLOGY/IMAGING 03/03/2021 documented in this encounter Results * SCAN - RADIOLOGY/IMAGING (03/03/2021) Anatomical Region Laterality Modality Other us Provider Scanning Final Result documented in this encounter Visit Diagnoses Not on filedocumented in this encounter Care Teams Tool Setter Relationship Specialty Start Date End Date Brian Velarde DO [address] [place] [address] PCP - General Family Practice 07/25/20 documented as of this encounter
--- OUTSIDE RECORDS SUMMARY | 2024-11-01 00:16 | XMS_ITS | Data Portability ---
Author Organization [facility] Address [address] [place] [address] [place] [address] Care Team Providers Care Web Pressman Name Role Phone DWIGHT WILKINS Primary Care Provider Assessment No assessment recorded. Plan of Treatment Reminders Order Date Submit Date Provider Last Modified By Organization Details Last Modified Time Details Appointments INDUCTION 2024 12:00A Lorena CAMPBELL MD Not available Not available Not available OB ROUTINE 2024 04:00P Lorena CAMPBELL MD Not available Not available Not available OB ROUTINE 2024 04:00P Lorena CAMPBELL MD Not available Not available Not available OB ROUTINE 2024 04:00P Lorena CAMPBELL MD Not available Not available Not available Lab iron + TIBC + ferritin, serum 2023 024 [facility] (Lab), [address], [place], [address], 08/31/2024 11:33:26 Referral None recorded. Procedures None recorded. Surgeries None recorded. Imaging non-stres s test 2024 025 [email or web address] [place], [place], [address], 10/30/2024 11:41:44 Medication Orders valacyclo vir 500 mg tablet 2024 025 [email or web address] [id number], [address], [place], [place], [id number], 10/11/2024 23:07:24 Patient TargetsNo targets recorded. Patient InstructionsNo instructions recorded. Reason for Referral None Reported. Results Created Date Observation Date Name Description Value Unit Range Abnormal Flag Note LastModifiedBy Organization Detail LastModifiedTime 08/30/20 24 08/30/2024 HEMOG LOBIN (HGB) HGB 10.0 g/dL (based on docume nted legal sex) 11.6-1 5.4 low Not Available [facility] (Lab) [address], [place], [address], 08/31/2024 11:33:25 08/30/20 24 08/30/2024 HEMAT OCRIT (HCT) HCT 31.7 % (based on docume nted legal sex) 34.0-4 5.0 low Not Available [facility] (Lab) [address], [place], [address], 08/31/2024 11:33:25 08/30/20 24 08/30/2024 GTT - GESTA AUGUSTINE Linh Matthews, ACOG OB glucose, 1 hour screen 90 mg/dL 70-135 Not Available [facility] (Lab) [address], [place], [address], 08/31/2024 11:33:25 08/30/20 24 08/30/2024 LIBIA TIN / IRON / TRANS LIBIA N / TIBC iron 45 ug/dL 40-170 Not Available [facility] (Lab) [address] [place], [address], 08/31/2024 11:33:26 08/30/20 24 08/30/2024 LIBIA TIN / IRON / TRANS LIBAI N / TIBC transferrin 394 mg/dL 200-36 0 high Not Available [facility] (Lab) [address] [facility], [place], [address], 08/31/2024 11:33:26 08/30/20 24 08/30/2024 LIBIA TIN / IRON / TRANS LIBIA N / TIBC ferritin 7.9 NG/mL 8.0-25 2.0 low Not Available [facility] (Lab) [address] [facility] [address], [place], [address], 08/31/2024 11:33:26 08/30/20 24 08/30/2024 LIBIA TIN / IRON / TRANS LIBIA N / TIBC TIBC 552 ug/dL 250-45 0 high Not Available [facility] (Lab) [address], [place], [address], 08/31/2024 11:33:26 08/30/20 24 08/30/2024 LIBIA TIN / IRON / TRANS LIBIA N / TIBC iron saturation 8 % 20-55 low Not Available [facility] (Lab) [address], [place], [address], 08/31/2024 11:33:26 08/30/20 24 08/30/2024 HIV 1/2 ANTIG EN/AN TIBOD Y, REFLE X CONFI RMATI ON HIV antigen/anti body Nonrea ctive nonrea ctive HIV-1 antig en and HIV-1 /HIV- 2 antib odies were not detec roxane. No labor atory evide nce of HIV infec tion. Not Available [facility] (Lab) [address], [place], [address], 08/31/2024 11:33:26 08/30/20 24 08/30/2024 RPR SCREE N, REFLE X TITER /CONF IRMAT ION RPR screen Nonrea ctive nonrea ctive Not Available [facility] (Lab) [address], [place], [address], 08/31/2024 11:33:27 08/09/20 24 08/09/2024 US, obste tric, follo w-up No observ ation record ed. [email or web address] [place] [address], [place], [address], 08/09/2024 18:07:39 08/09/20 24 08/09/2024 US, doppl er, umbil ical arter y veloc imetr y No observ ation record ed. [email or web address] [place] [address], [place], [address], 08/09/2024 18:07:49 08/09/20 24 08/09/2024 US, obste tric, follo w-up No observ ation record ed. [email or web address] [address] [address], [place], [address], 08/10/2024 09:26:35 08/16/20 24 08/16/2024 US, obste tric, follo w-up No observ ation record ed. [address], [place], [address], 08/21/2024 14:35:01 08/16/20 24 08/16/2024 US, obste tric, follo w-up No observ ation record ed. [email or web address] [address], [place], [address], 08/21/2024 18:44:08 08/16/20 24 08/16/2024 US, obste tric, follo w-up No observ ation record ed. [address], [place], [address], 08/21/2024 14:35:41 08/23/20 24 08/23/2024 US, obste tric, follo w-up No observ ation record ed. [address] [facility] [address] [facility], [place], [address], 08/24/2024 12:17:03 08/30/20 24 08/30/2024 US, obste tric, follo w-up No observ ation record ed. [email or web address] [facility] [address], [place], [address], 09/07/2024 15:05:47 12/11/20 24 08/30/2024 US, obste tric, follo w-up No observ ation record ed. [email or web address] [facility] [address] [place] [address], [address], 09/07/2024 14:59:51 09/19/20 24 09/19/2024 US, salin e infus ed uteru s No observ ation record ed. [email or web address] [facility] [address] [place] [address], [address], 09/21/2024 17:09:16 09/19/20 24 09/19/2024 US, obste tric, follo w-up No observ ation record ed. [place] [address], [place], [address], 09/21/2024 17:07:07 10/03/19 25 10/03/2024 US, obste tric, follo w-up No observ ation record ed. [email or web address] [facility] [address], [address], 10/04/2024 11:09:59 10/03/19 25 10/03/2024 US, obste tric, follo w-up No observ ation record ed. [email or web address] [place] [address], [place], [address], 10/04/2024 11:17:58 10/10/19 25 10/10/2024 US, obste tric, follo w-up No observ ation record ed. [email or web address] [facility] [address], [address], 10/11/2024 09:24:29 10/11/19 25 10/10/2024 US, obste tric, follo w-up No observ ation record ed. [email or web address] [facility] [address], [address], 10/11/2024 11:16:37 10/17/19 25 10/17/2024 US, salin e infus ed uteru s No observ ation record ed. [email or web address] [facility] [address], [address], 10/18/2024 22:07:34 10/18/19 25 10/17/2024 US, obste tric, follo w-up No observ ation record ed. [email or web address] [facility] [address], [place], [address], 10/22/2024 22:44:55 10/24/19 25 10/24/2024 US, obste tric, follo w-up No observ ation record ed. [email or web address] [facility] [address], [address], 10/24/2024 16:25:09 10/24/19 25 10/24/2024 US, obste tric, bioph ysica l profi le + non-s tress test No observ ation record ed. [email or web address] [facility] [address] [facility], [place], [address], 10/25/2024 10:40:06 10/25/19 25 10/24/2024 US, obste tric, follo w-up No observ ation record ed. [email or web address] [facility] [address] [place] [address], [address], 10/27/2024 07:39:43 10/27/19 25 10/27/2024 non-s tress test No observ ation record ed. [email or web address] [place] [address], [place], [address], 10/27/2024 16:25:17 Result Notes None recorded. Problems Name Problem SNOMED Code Status Onset Date Resolution Date Notes Provider Name and Address Organization Details Recorded Time Prediabet es 343421407 Active 2023 MARY CAMPBELL MD [address], [place], [address], [facility] 4 17:19:44 82283035 Active 2023 Cyndee Coleman [facility], [facility] 4 19:05:42 Herpes simplex 09456877 Active valtrex at 36wks Lulú nieves, [facility] 4 14:38:56 Herpes simplex 21929428 Active valtrex at 36wks Lulú nieves, [facility] 4 14:38:56 Past history of premature delivery 323047219 Active 36wks 3# Lulú nieves, [facility] 4 14:41:25 Past history of premature delivery 861359057 Active 36wks 3# Lulú nieves, [facility] 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 4 14:30:07 Placenta circumval gricel 2756003 Active 32 week growth Lulú nieves, [facility] 4 14:30:07 growth restricti on Active EFW 9% antental testing [facility] weekly on Tuesdays [facility] recommend 37wk delivery Lulú nieves, [facility] 5 18:41:13 growth restricti on Active EFW 9% antental testing [facility] weekly on Tues[facility] recommend 37wk delivery Lulú nieves, [facility] 5 18:41:13 Problem Notes None recorded. Procedures Surgical History Date Name Laterality Status Provider Name and Address Organization Details Recorded Time 02/22/20 24 SIS completed MARY CAMPBELL MD [address], [place], [address], [place] [facility] 02/22/2024 14:59:37 10/22/19 24 Dilation and Curettage completed Mary Anne Foley [facility] 04/11/2024 16:28:40 06/04/20 23 Date of Last Pap Smear completed Jennifer Gaspar [facility] 01/26/2024 09:35:03 06/20/20 20 arm destructive procedure completed Mary Anne Foley [facility] 04/11/2024 16:29:31 Imaging Results Imaging Date Name Status LastModified by Organiz ation Details LastModified Time 08/09/2024 US, obstetric, follow-up completed [address], [place], [address], 08/09/2024 18:07:39 08/09/2024 US, doppler, umbilical artery velocimetry completed [address], [place], [address], 08/09/2024 18:07:49 08/09/2024 US, obstetric, follow-up completed [address] [facility], [place], [address], 08/10/2024 09:26:35 08/16/2024 US, obstetric, follow-up completed [email or web address] [address], [address], 08/21/2024 14:35:01 08/16/2024 US, obstetric, follow-up completed [email or web address] [address], [address], 08/21/2024 18:44:08 08/16/2024 US, obstetric, follow-up completed [address] [facility], [place], [address], 08/21/2024 14:35:41 08/23/2024 US, obstetric, follow-up completed [address] [facility] [address] [facility], [place], [address], 08/24/2024 12:17:03 08/30/2024 US, obstetric, follow-up completed [email or web address] [place] [address], [place], [address], 09/07/2024 15:05:47 08/30/2024 US, obstetric, follow-up completed [address] [facility] [address], [address], 09/07/2024 14:59:51 09/19/2024 US, saline infused uterus completed [email or web address] [facility] [place], [address], 09/21/2024 17:09:16 09/19/2024 US, obstetric, follow-up completed [place] [address], [place], [address], 09/21/2024 17:07:07 10/03/2024 US, obstetric, follow-up completed [address] [facility] [address] [place] [address], [address], 10/04/2024 11:09:59 10/03/2024 US, obstetric, follow-up completed [place] [address], [place], [address], 10/04/2024 11:17:58 10/10/2024 US, obstetric, follow-up completed [email or web address] [facility] [place] [address] [place], [address], 10/11/2024 09:24:29 10/10/2024 US, obstetric, follow-up completed [email or web address] [facility] [address], [address], 10/11/2024 11:16:37 10/17/2024 US, saline infused uterus completed [email or web address] [facility] [address], [address], 10/18/2024 22:07:34 10/17/2024 US, obstetric, follow-up completed [email or web address] [place] [address], [place], [address], 10/22/2024 22:44:55 10/24/2024 US, obstetric, follow-up completed [email or web address] [facility] [address], [address], 10/24/2024 16:25:09 10/24/2024 US, obstetric, biophysical profile + non-stress test completed [email or web address] [facility] [address] [facility], [place], [address], 10/25/2024 10:40:06 10/24/2024 US, obstetric, follow-up completed [email or web address] [facility] [address], [address], 10/27/2024 07:39:43 10/27/2024 non-stress test completed [email or web address] [place] [address], [place], [address], 10/27/2024 16:25:17 Procedure Notes None recorded. Medical Equipment None [...] Updated DateTime 08/30/2024 156.21 cm 32.5 kg/m2 84090.66 475 g 119 mm[Hg] 82 mm[Hg] [facility] 4 14:10:09 Date Recorded Body height Body mass index (BMI) Body weight Systolic blood pressure Diastolic blood pressure Provider Name and Address Organization Details Last Updated DateTime 09/27/2024 156.21 cm 33.5 kg/m2 40857.34 5074 g 103 mm[Hg] 71 mm[Hg] [facility] 5 09:54:28 Date Recorded Body height Body mass index (BMI) Body weight Systolic blood pressure Diastolic blood pressure Provider Name and Address Organization Details Last Updated DateTime 10/11/2024 156.21 cm 33.3 kg/m2 27181.03 g 115 mm[Hg] 76 mm[Hg] [facility] 5 14:13:39 Date Recorded Body height Body mass index (BMI) Body weight Systolic blood pressure Diastolic blood pressure Provider Name and Address Organization Details Last Updated DateTime 10/27/2024 156.21 cm 34.4 kg/m2 29660.59 g 127 mm[Hg] 81 mm[Hg] Jenniferwagner Gaspar [facility] 15:17:42 Social History Question Answer Notes LastModified by Organizat ion Details LastModified Time Tobacco Smoking Status Current Every Day Smoker Mary Anne nieves, [facility] 04/11/2024 16:28:24 Do You Have An Advance Directive? No Information not available 07/24/2022 What Is Your Level Of Alcohol Consumption? None [email or web address] Information not available 04/11/2024 If You Are [...] Or The Highest Degree You Have Received? [id number] Information not available 07/24/2022 Are There Any [...] Anxious, Or Unable To Sleep At Night)? [id number] Information not available 07/24/2022 Do You Use [...] have difficulty walking or climbing stairs? No [email or web address] Information not available 10/05/2023 Are you able to walk? [email or web address] Information not available 07/24/2022 Are you able to care for yourself? Yes [email or web address] Information not available 10/05/2023 Do you have difficulty dressing or bathing? No [email or web address] Information not available 10/05/2023 What is your [...] N Drug/Latex Allergies/Reactions N Blood Transfusion N Lung Disease N [...] Y Kidney Disease N Heart Problems N Kidney [...] SNOMED-CT Code Diagnosis ICD10 Code Diagnosis Note [id number] Karen Queen [facility] [address],[facility] [address] 07/24/2022 14:19:51 07/24/2022 14:55:54 Sexually transmitted infectious disease 9946990 A64 STD screen updated. Vaginitis 44992514 N76.0 Suspect BV/YeastRx sentSTD screen sent per request Counseled on medication R/B's, Most common side effects, & use. All questions were answered to patient satisfacti on. Hx reviewed & updated Time spent in visit is a total of 30 mins with at least 50% of visit consisting of counseling and review of plan of care. [id number] Karen Queen [facility] [address] [address] 08/31/2022 12:26:39 08/31/2022 13:01:57 Labial cyst 342228250 N90.7 Today we reviewed HSV vs Folliculit [...] counseling and review of plan of care. [id number] MARY CAMPBELL MD [place] [address] [address] 06/04/2023 15:59:50 06/07/2023 16:18:19 Gynecologic examination 11292048 Z01.419 [facility]- Cervical cancer screening: Pap smear obtained today, will follow up on the results with the patient as they become available- HPV immunizati on: has not received, discussed and recommende d today- STD testing: received- hereditary cancer screening: does not qualify for testing Contracept ion care management 267599140 Z30.9 - patient desires BCPs, will give sample of Slynd today- discussed smoking cessation prior to starting estrogen containing pills [id number] MARY CAMPBELL MD [place] [address] [address] 07/05/2023 16:24:45 07/06/2023 08:55:12 Pain in pelvis 63133141 R10.2 - pain started 06/24 with ovulation- patient concerned as pain and other symptoms are similar to ectopic - UPT negative in office- low suspicion for ectopic - likely 2/2 mittelschm ertz vs MSK vs GI illness- pelvic US to r/o ovarian cysts [id number] [facility] [address] [address] 09/10/2023 16:26:51 09/12/2023 09:20:20 Past history of ectopic 930755336 Z87.59 Z3A.01 [id number] [facility] [address],[place] [address] 09/21/2023 16:58:04 09/22/2023 09:47:42 Past history of ectopic 400007149 Z87.59 Z3A.01 [id number] MARY CAMPBELL MD [place] [address],[place] [address] 10/05/2023 15:35:25 10/12/2023 08:56:05 Missed miscarriage 10346103 O02.1 Z3A.01 - US demonstrat es enlarged YS with GS, no embryo, no cardiac activity- c/w missed miscarriag e- discussed expectant vs medical vs surgical management with patient, who is undecided- returns home on 10/10, will discuss with him and decide at that time- warning signs and return precaution s discussed [id number] Emily Tran [place] [address],[place] [address] 10/05/2023 15:36:12 10/05/2023 16:16:08 Missed miscarriage 95178713 O02.1 Z3A.01 [id number] MARY CAMPBELL MD [place] [address],[place] [address] 01/26/2024 09:28:55 01/27/2024 03:54:53 Recurrent miscarriage 332928531 N96 - s/p 2 consecutiv e miscarriag [...] of the above workup at this time [id number] MARY CAMPBELL MD [place] [address],[place] [address] 02/22/2024 13:56:25 02/22/2024 15:09:28 Recurrent miscarriage 127507686 N96 - s/p 2 consecutiv e miscarriag es- hx of 1 in 2017- POC from suction D&C shows 92 XXXX- discussed potential causes of recurrent miscarriag es including APLS, thyroid disease, diabetes, structural (polyps, fibroids, mullerian anomalies, scar tissue), abnormal parental karyotypes .- labwork unremarkab le aside from prediabeti c A1c- SIS performed today, will follow up with results as available [id number] [facility] [address],[place] [address] 02/22/2024 13:56:49 02/22/2024 14:57:12 Recurrent miscarriage 275414611 N96 [id number] [facility] [address],[place] [address] 03/24/2024 12:26:47 03/24/2024 13:32:00 History of poor outcome 8381943456 81794 Z87.59 Z3A.01 [facility] [address],[place] [address] 04/11/2024 15:24:38 04/11/2024 16:03:18 MARY CAMPBELL MD [place] [address],[place] [address] 04/11/2024 15:25:02 04/11/2024 17:19:15 Amenorrhea 35121619 N91.2 Z32.01 1. Exam today within normal [...] orders given today Venereal d isease screening 849981525 Z11.3 screening 2437 86927 Z36.0 Genetic in vestigation procedure 71989348 Z31.430 [id number] [facility] [address],[place] [address] 05/09/2024 14:29:23 05/09/2024 15:19:46 screening 259395561 Z36.82 Z3A.11 [id number] MARY CAMPBELL MD [place] [address],[place] [address] 05/09/2024 14:29:45 05/10/2024 09:35:04 Routine care 686774802 Z34.90 Prediabetes 502609485 R7 3.03 - metformin 500mg dialy Gestation period, 11 weeks 92330944 Z3A.11 [id number] Shakila Maria [facility] [address],[place] [address] 05/17/2024 15:33:20 05/18/2024 09:03:43 02352941 Z33.1 [id number] MARY CAMPBELL MD [place] [address],[place] [address] 06/07/2024 16:27:21 06/07/2024 17:09:26 Routine care 378583458 Z34.90 - continue PNV [id number] [facility] [address],[place] [address] 07/10/2024 10:34:36 07/10/2024 11:41:39 screening for malformation 846601200 Z36.3 Z3A.20 [id number] MARY CAMPBELL MD [place] [address],[place] [address] 07/10/2024 10:34:58 07/10/2024 12:34:00 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 - growth wnl at anatomy 36%, repeat at 32 weeks Gestation period, 20 weeks 64332734 Z3A.20 - continue PNV [id number] Emily Tran [place] [address],[place] [address] 08/09/2024 14:03:15 08/09/2024 14:50:15 screening 628115933 Z36.2 O43.112 Z3A.25 [id number] MARY CAMPBELL MD [place] [address],[place] [address] 08/09/2024 14:03:37 08/09/2024 15:28:03 growth restriction 70820529 O36.5999 Past pregn karan history of premature delivery 372164831 Z87.51 Placenta circumvallata 5709747 O43.119 - growth wnl at anatomy 36%, repeat at 32 weeks Gestation period, 25 weeks 64842207 Z3A.25 [id number] MARY CAMPBELL MD [place] [address],[place] [address] 08/30/2024 14:01:59 08/30/2024 14:38:08 Gestation period, 28 weeks 85185115 Z3A.28 - GCT and labs today- discussed Tdap Past pregn karan history of premature delivery 871357624 Z87.51 Placenta circumvallata 0420076 O43.119 - growth wnl at anatomy 36%, normal at MFM today (16%) [id number] MARY CAMPBELL MD [place] [address],[place] [address] 09/27/2024 09:49:01 10/04/2024 03:15:31 growth restriction 67104967 O36.5999 - following with MFM Gestation period, 32 weeks 2914472 Z3A.32 - continue PNV [id number] MARY CAMPBELL MD [place] [address],[place] [address] 10/11/2024 14:09:37 10/12/2024 05:26:59 Herpes simplex 68858830 B00.9 - will start valtrex for suppressio n until delivery grow th restriction 57024972 O36.5999 - following with [facility], testing scheduled- recommend 38 week delivery, will schedule for 11/08 Gestation period, 34 weeks 78076462 Z3A.34 [id number] Jennifer Gaspar [place] [address],[place] [address] 10/27/2024 14:37:44 10/30/2024 11:41:44 Reduced movement 538790997 O36.8199 [id number] MARY CAMPBELL MD [place] [address],[place] [address] 10/27/2024 14:38:17 10/27/2024 15:59:32 growth restriction 47877357 O36.5999 - following with [facility], testing scheduled- recommend 37 week delivery, will schedule for 11/01 Herpes simplex 58711238 B00.9 - will start valtrex for suppressio n until delivery Placenta circumvallata 1230781 O43.119 - growth wnl at anatomy 36%, normal at MFM today (16%) Gestation period, 36 weeks 19291325 Z3A.36 - continue PNV- GBS collected Health Concerns Section Related Observation LastModified by Organization Detai ls LastModified Time None Recorded Concern Status LastModified by Organization Details LastModified Time None Recorded Advance Directives Directive N: Payers Encounter Date Sequence Insurance Name Policy Number Policy Barba Covered Member ID Barba Member ID Guarantor Name 08/30/2024 1 [employer] ON OR AFTER 03/20/21 (MEDICAID REPLACEMENT - HMO) Marnie Jones [id number] Marnie Jones 09/27/2024 1 [employer] ON OR AFTER 03/20/21 (MEDICAID REPLACEMENT - HMO) Marnie Jones [id number] Marnie Jones 10/11/2024 1 [employer] ON OR AFTER 03/20/21 (MEDICAID REPLACEMENT - HMO) Marnie Jones [id number] Marnie Jones 10/27/2024 1 [employer] ON OR AFTER 03/20/21 (MEDICAID REPLACEMENT - HMO) Marnie Jones [id number] Marnie Jones 10/27/2024 1 [facility] ON OR AFTER 03/20/21 (MEDICAID REPLACEMENT - HMO) Marnie Jones [id number] Marnie Jones OBGyn Episode Ob Episode Information Episode Created Date Number of Fetuses Patient Bloodtype Patient rh Status Prepregnancy Weight lbs Domestic Partner Domestic Partner Phone Father Name Pilot Instructor Status 07/24/20 22 1 CLOSED Fetus Data First Name Last Name Admitted to NICU Weight (g) Sex Living Outcome Pediatric Complications Fetus ID Race Codes Race Delivery Type 1360.77 6 F Prematur e 77887 Vaginal Delivery Karri Calculation Initial Karri Date [...] Domestic Partner Domestic Partner Phone Father Name Pilot Instructor Status 01/26/20 24 1 CLOSED Fetus Data First Name Last Name Admitted to NICU Weight (g) Sex Living Outcome Pediatric Complications Fetus ID Race Codes Race Delivery Type , Spontane ous 19132 Karri Calculation Initial Karri Date Initial Exam [...] Domestic Partner Domestic Partner Phone Father Name Pilot Instructor Status 05/09/20 24 1 A Positive OPEN Fetus Data First Name Last Name Admitted to NICU Weight (g) Sex Living Outcome Pediatric Complications Fetus ID Race Codes Race Delivery Type [id number] Problems Problem Notes -EFW 3% AC <1% S/D Ratio mid ly elevated for GA - MF referral faxed to Marlene 08/09 - pt request to see [facility] STL referral sent 08/23 & 08/30 US & OV 1030 09/19 0815 NST & US [facility] MF 10/02 US & NST 10/24 [facility] recommend 37 week delivery , 2wkly testing , scheduled [facility] can schedule NST here on Wednesday or [facility] due to abnormal doppler and ac <3% 2/4 report Problem Name Start Date End Date Resolution Snomed Code Not e Placenta circumvallata [id number] 32 week growth us growth restriction [id number] EFW 9% antental testing [facility] weekly on MFM recommend 37wk delivery Past history of premature delivery [id number] 36wks 3# Herpes simplex [id number] valtr ex at 36wks Karri Calculation Initial [...] Weight in lbs Pre/Post Dialysis Refused Weight 174.124812108276 BP Diastolic BP Location Tested BP Systolic BP Type 80 127 Fetus Heart Rate Present A 160 Fetus Movement A Yes Comments Patient presents to [facility] care. Doing well, nausea minimal. No cramping [...] Type Weight in lbs Pre/Post Dialysis Refused 168.574471450590 BP Diastolic BP Location Tested BP Systolic [...] Type Weight in lbs Pre/Post Dialysis Refused 171.330820824224 BP Diastolic BP Location Tested BP Systolic [...] Type Weight in lbs Pre/Post Dialysis Refused 174.78191433993 BP Diastolic BP Location Tested BP Systolic BP Type 77 L arm 116 sitting Fetus Heart Rate Present A Present Fetus Movement A Yes Comments Patient c/o heartburn, will try tums and pepcid. Anatomy complete and normal today, however AC 9% with mildly elevated SD ratio on UADs. Will send [facility] referral for further evaluation. Otherwise, doing well. RTC 3 weeks for GCT and labs. Flowsheet Date 08/30/2024 Zamora Score Blood Edema Fundus Height Fundus Units Glucose Ketones Leukocytes Nitrite Labor Signs Protein Cervic Dilation Cervic Effacement Cervic Station neg none Type Weight in lbs Pre/Post Dialysis Refused 175.314422886817 BP Diastolic BP Location Tested BP Systolic BP Type 82 L arm 119 sitting Fetus Heart Rate Present A Present Fetus Movement A Yes Comments Doing well, good movem ent. No cramping or bleeding. US wnl at [facility] today, AC and EFW 16%. UADs [...] Type Weight in lbs Pre/Post Dialysis Refused 180.208475145124 BP Diastolic BP Location Tested BP Systolic BP Type 71 L arm 103 sitting Fetus Heart Rate Present A 145 Fetus Movement A Yes Comments Good movement. [facility] oskar ointment 10/02. Anemia on labs, discussed Fe supplement. Passed GCT. RTC 2 weeks. Flowsheet Date 10/11/2024 Zamora Score Blood Edema Fundus Height Fundus Units Glucose Ketones Leukocytes Nitrite Labor Signs Protein Cervic Dilation Cervic Effacement Cervic Station neg none Type Weight in lbs Pre/Post Dialysis Refused Weight 179.196214391663 BP Diastolic BP Location Tested BP Systolic BP Type 76 L arm 115 sitting Fetus Heart Rate Present A 145 Fetus Movement A Yes Comments Patient c/o of slight nausea , along with Lincoln Dillard, cramping the past 3 days. Good movement. Was seen by MFM, FGR at 9%. UADs wnl. Monitoring at [facility]. Recommend 38 week delivery due to FGR. Patient voices understanding, plan for [facility] 11/08. Discussed GBS swab for next visit. RTC 2 weeks. Flowsheet Date 10/27/2024 Zamora Score Blood Edema Fundus Height Fundus Units Glucose Ketones Leukocytes Nitrite Labor Signs Protein Cervic Dilation Cervic Effacement Cervic Station Type Weight in lbs Pre/Post Dialysis Refused BP Diastolic BP Location Tested BP Systolic BP Type Fetus Heart Rate Present Fetus Movement Comments Flowsheet Date 10/27/2024 Zamora Score Blood Edema Fundus Height Fundus Units Glucose Ketones Leukocytes Nitrite Labor Signs Protein Cervic Dilation Cervic Effacement Cervic Station neg trace Type Weight in lbs Pre/Post Dialysis Refused Weight 185.813947899565 BP Diastolic BP Location Tested BP Systolic BP Type 81 L arm 127 sitting Fetus Heart Rate Present A 145 Fetus Movement A Yes Comments Patient c/o of slight nausea , Lincoln Dillard. Swelling in feet. Good movement. No bleeding or LOF. Intermittent contractions. MFM recommends 37 week delivery due to abnormal MCA dopplers and AC <3%. Induction orders sent. GBS collected. NST reactive. Labor precautions reviewed. Menstrual History Last Menstrual Date Menses Monthly [...] Domestic Partner Domestic Partner Phone Father Name Pilot Instructor Status 01/26/20 24 1 CLOSED Fetus Data First Name Last Name Admitted to NICU Weight (g) Sex Living Outcome Pediatric Complications Fetus ID Race Codes Race Delivery Type , Spontane ous 74523 Karri Calculation Initial Karri Date Initial Exam [...] Domestic Partner Domestic Partner Phone Father Name Pilot Instructor Status 10/05/19 24 1 CLOSED Fetus Data First Name Last Name Admitted to NICU Weight (g) Sex Living Outcome Pediatric Complications Fetus ID Race Codes Race Delivery Type Ectopic 40778 Karri Calculation Initial Karri Date Initial Exam Date Initial Exam Provider Initial Ultrasound Date Last Menstrual Period Date Ultra Sound Weeks Gestation 0 Eighteen To Twenty Week Karri Update Ultra Sound Date Fundal Height At Umbil Quickening Date Ultra Sound Latest Weeks Gestation Final Akrri Confirmed By Final Karri Confirmed Date Final [...] Domestic Partner Domestic Partner Phone Father Name Pilot Instructor Status 10/05/19 24 1 CLOSED Fetus Data First Name Last Name Admitted to NICU Weight (g) Sex Living Outcome Pediatric Complications Fetus ID Race Codes Race Delivery Type Ectopic 77106 Karri Calculation Initial Karri Date Initial Exam [...]
--- OUTSIDE RECORDS SUMMARY | 2024-11-01 00:16 | XMS_ITS | Clinical Summary ---
Author Organization [facility] Address [address] [place] [address] Phone Care Team Providers Care Presentation Designer Name Role Phone Unavailable Primary Care Provider Unavailabl e Active Problems Problem Noted Date Diagnosed Date Poor growth affecting management of mother in second trimester 08/16/2024 Encounters Date Type Department Care Team Description 10/17/2024 External Device Data STL ABSTRACTION Provider, Abstract 10/11/2024 External Device Data [facility] ABSTRACTION Provider, Abstract 10/11/2024 External Device Data [facility] ABSTRACTION Provider, Abstract 08/23/2024 10:00 AM AGRICULTURAL ECONOMICS PROFESSOR - 08/23/2024 11:59 PM AGRICULTURAL ECONOMICS PROFESSOR Hospital Encounter [facility] Maternal and Ground [place] [address] [place] [phone] Sheila Chang MD Discharge Disposition: Home or Self Care 08/22/2024 External Device Data ST[facility] ABSTRACTION Provider, Abstract 08/16/2024 2:45 PM AGRICULTURAL ECONOMICS PROFESSOR Initial [facility] Maternal and Medicine [place] [address] [place] [address] Sheila Chang MD Poor growth affecting management of mother in second trimester, single or unspecified fetus (Primary Dx); 26 weeks gestation of 08/16/2024 1:30 PM AGRICULTURAL ECONOMICS PROFESSOR - 08/16/2024 11:59 PM AGRICULTURAL ECONOMICS PROFESSOR Hospital Encounter [facility] Maternal and Ground Floor [address] [place] [phone] Mary Campbell MD Discharge Disposition: Home or Self Care 08/10/2024 Orders Only [facility] Maternal and Ground Floor [address] [place] [address] Mary Campbell MD Poor growth affecting management [...] Comments Blood Pressure 113/66 08/16/2024 3:27 PM AGRICULTURAL ECONOMICS PROFESSOR Pulse 90 08/16/2024 3:27 PM AGRICULTURAL ECONOMICS PROFESSOR Temperature - - Respiratory Rate - - Oxygen Saturation - - Inhaled Oxygen Concentration - - Weight 79.4 kg (175 lb) 08/16/2024 3:27 PM AGRICULTURAL ECONOMICS PROFESSOR Height 154.9 cm (5' 1 ) 08/16/2024 3:27 PM AGRICULTURAL ECONOMICS PROFESSOR Body Mass Index 33.07 08/16/2024 3:27 PM AGRICULTURAL ECONOMICS PROFESSOR Plan of Treatment Health Maintenance Due Date [...] LTD+UMB ART DOPPLER Routine 08/23/2024 10:31 AM AGRICULTURAL ECONOMICS PROFESSOR Poor growth affecting management of mother in second trimester, fetus 1 of multiple gestation US OB DETAIL SINGLE GEST Routine 08/16/2024 2:58 PM AGRICULTURAL ECONOMICS PROFESSOR Abnormal head circumference in relation to growth and age standard from Last 3 Months Results * US OB LTD+UMB ART DOPPLER (08/23/2024 10:31 AM AGRICULTURAL ECONOMICS PROFESSOR) Anatomical Region Laterality Modality Pelvis Ultrasound 08/23/2024 11:1 5 AM AGRICULTURAL ECONOMICS PROFESSOR Narrative 08/23/2024 10:40 AM AGRICULTURAL ECONOMICS PROFESSOR STL LIMITED ----- Pat. Name: MARNIE JONES Study Date: 08/23/2024 11:15am Pat. NO: [id number] Referring MD: MARY CAMPBELL MD Site: [facility] Sweatband Separator: Latanya Boss RDMS : 1995 Age: 28 ----- INDICATION ----- Intrauterine Growth Restriction (IUGR) Circumvallate Placenta History of PTL/PTD in Previous , Currently CODING ----- Diagnoses Z3A.27: Weeks of gestation O09.212: Supervision of with history of pre-term labor O43.112: Circumvallate placenta O36.5920: Maternal care for other known or suspected poor growth Procedures 05424: Ultrasound, uterus, real time with image documentation, limited one or more fetuses 65709: Doppler velocimetry, ; umbilical artery 54017: Doppler velocimetry, ; middle cerebral artery METHOD [...] PI 1.91 47% [place] RI 0.83 67% [facility] 40.41 cm/s PS 1.15 [...] and date of were verified by the technical services representative prior to the exam. IMPRESSION ----- Viable [...] testing and ultrasounds in the center at [place] if she chooses. Procedure Note Chandler Salas MD - 08/23/2024 ST LIMITED ----- Pat. Name:Pedrito JONES Date:08/23/2024 11:15am Pat. NO: [id number] MD:MARY CAMPBELL [facility]Lat[facility] Boss RDMS :1995Age:28 ----- INDICATION ----- Intrauterine Growth Restriction (IUGR) Circumvallate Placenta History of PTL/PTD in Previous , Currently CODING ----- Diagnoses Z3A.27: Weeks of gestation O09.212: Supervision of with history ofpre-term labor O43.112: Circumvallate placenta O36.5920: Maternal care for other known orsuspected poor growth Procedures 87941: Ultrasound, uterus, real time withimage documentation, limited one or more fetuses 47104: Doppler velocimetry, ; umbilicalartery 47210: Doppler velocimetry, ; middle cerebralartery METHOD ----- Transabdominal ultrasound examination ----- Vora . Number of fetuses: 1 DATING ----- GA by prior [id number] w + 0 d WILLIE by prior [...] and date of were verified by the technical services representative prior tothe exam. IMPRESSION ----- Viable at [...] testing and ultrasounds in the [facility]atal[facility] at [place] if she chooses. us Sheila Chang MD US ORDERABLES Final Result * US OB DETAIL SINGLE GEST (08/16/2024 2:58 PM AGRICULTURAL ECONOMICS PROFESSOR) Anatomical Region Laterality Modality Pelvis Ultrasound 08/16/2024 1:58 PM AGRICULTURAL ECONOMICS PROFESSOR Narrative 08/16/2024 2:56 PM AGRICULTURAL ECONOMICS PROFESSOR STL COMP ----- Pat. Name: MARNIE JONES Study Date: 08/16/2024 1:58pm Pat. NO: [id number] Referring MD: Site: [facility] Sweatband Separator: Clair Hicks RDMS : 1995 Age: 28 [...] Z36.3: Encounter for screening for malformations Procedures 81831: Ultrasound, uterus, real time with image documentation, and maternal evaluation plus detailed anatomic examination, transabdominal approach 77681: Doppler velocimetry, ; umbilical artery 79108: Doppler velocimetry, ; middle cerebral artery METHOD [...] Hadlock OFD 81.0 mm 26w 2d 59% Kseina HC 233.7 mm 25w 3d 11% Hadlock Cerebellum tr 29.5 mm 27w 1d 58% Justin AC 197.9 mm 24w 3d 7% Hadlock Femur 49.5 mm 26w 5d 57% Hadlock Humerus 44.8 mm 26w 4d 63% Ksenia HC / AC 1.18 83% Nicolaides Weight Calculation: EFW 813 g 25w 2d 20% Hadlock EFW (lb,oz) 1 lb 13 oz EFW by Hadlock ([id number]) Head / Face / Neck Biometry: Manufacturers Agent 3.6 mm CM 5.0 mm 14% Nicolaides [...] view. RVOT view. LVOT view. 3-vessel view. 8-cixlnb-rkdwmee view. Situs. Aortic arch view. Ductal arch [...] and date of were verified by the technical services representative before the exam IMPRESSION ----- Vora @ [...] Pat. Name:Pedrito JONES Date:08/16/2024 1:58pm Pat. NO: [id number] MD: [facility]air Hicks RDMS :1995Age:28 ----- INDICATION ----- Anatomy Survey low risk NIPT Intrauterine Growth Restriction (IUGR) Circumvallate Placenta History of PTL/PTD in Previous , 36 weeks PPROM Currently CODING ----- Diagnoses Z3A.26: Weeks of gestation O09.212: Supervision of with history ofpre-term labor O43.112: Circumvallate placenta O36.5920: Maternal care for other known orsuspected poor growth Z36.3: Encounter for screening formalformations Procedures 66630: Ultrasound, uterus, real time withimage documentation, and maternal evaluation plus detailed anatomic examination,transabdominal approach 67460: Doppler velocimetry, ; umbilicalartery 77238: Doppler velocimetry, ; middle cerebralartery METHOD ----- Transabdominal ultrasound examination ----- Vora . Number of fetuses: 1 DATING ----- Method of dating:based on stated WILLIE GA by prior [id number] w + 0 d WILLIE by prior [...] 1 lb 13 oz EFW by Hadlock ([id number]) Head / Face / Neck Biometry: Manufacturers Agent 3.6 mm CM 5.0 mm 14%Nicolaides Inner [...] 4-chamber view. RVOT view. LVOT view. 3-vesselview. 7-cphvnd-uhhhzfh view. Situs. Aortic arch view. Ductal arch [...] and date of were verified by the technical services representative beforethe exam IMPRESSION ----- Vora @ 26w [...]
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
--- OUTSIDE RECORDS SUMMARY | 2024-11-01 00:17 | XMS_ITS | Patient Health Summary ---
Author Organization [facility] Address [address] [address] Care Team Providers Care Sap Bw Developer Name Role Phone Andres Angela MD Unavailable [phone] Andres Angela MD Unavailable [phone] Pcp, Carolina Eid Primary Care Provider Unav ailable Note from [facility],non-owned Affiliates and Associated Physician Practices is amultiple site organization consisting of ambulatory clinics and hospital sitesin [place], [place], [place] and [place]. This disclosure is being madepursuant to the Care Everywhere program and may not contain all information available regarding this patient. Last updated 18.[facility] Allergies No known active allergies Medications [...] Comments Blood Pressure 115/71 10/24/2024 2:25 PM [employer] Pulse 76 10/24/2024 2:25 PM [employer] Temperature 37 C (98.6 F) 12/04/2020 10:16 AM CDT Respiratory Rate 18 12/04/2020 10:16 AM CDT Oxygen Saturation 100% 10/03/2024 9:11 AM [employer] Inhaled Oxygen Concentration - - Weight 79.2 kg (174 lb 9.6 oz) 08/30/2024 11:33 AM [employer] Height 154.9 cm (5' 1 ) 12/04/2020 10:16 AM CDT Body Mass Index 32.99 12/04/2020 10:16 AM CDT Procedures * BIOPHYSICAL PROFILE W NST(Performed 10/24/2024) Performed for Aversion to food: limiting protein intake, Abnormal ultrasound: dopplers elevated S/d ratio, High-risk in third trimester ([facility]), Previous baby with growth restriction, 37 weeks gestation of ([facility]) * BIOPHYSICAL PROFILE W NST(Performed 10/17/2024) Performed for Encounter for maternal care for suspected poor growth in roman inthird trimester ([facility]), Aversion to food: limiting protein intake, Abnormal ultrasound: dopplers elevated S/d ratio, High-risk in third trimester ([facility]), Encounter for screening ([facility]) * BIOPHYSICAL PROFILE W NST(Performed 10/10/2024) Performed for Encounter for maternal care for suspected poor growth in roman inthird trimester ([facility]), Aversion to food: limiting protein intake, Abnormal ultrasound: dopplers elevated S/d ratio, High-risk in third trimester ([facility]), Encounter for screening ([facility]) * BIOPHYSICAL PROFILE W NST(Performed 10/03/2024) Performed for Encounter for maternal care for suspected poor growth in roman inthird trimester ([facility]), Aversion to food: limiting protein intake, Abnormal ultrasound: dopplers elevated S/d ratio, High-risk in third trimester ([facility]), Encounter for screening ([facility]) * BIOPHYSICAL PROFILE W NST(Performed 09/19/2024) Performed for Encounter for maternal care for suspected poor growth in roman inthird trimester ([facility]), Aversion to food: limiting protein intake, Abnormal ultrasound: dopplers elevated S/d ratio, High-risk in third trimester ([facility]), Encounter for screening ([facility]) * SONOGRAM - COMPLETE(Performed 08/30/2024) Performed for SGA (small for gestational age) ([facility]), Encounter for anatomic survey ([facility]) * US OB LESS 14 WKS W TRANSV W DOPP(Performed 12/04/2020) Performed for Threatened miscarriage ([facility]), Vaginal bleeding in , first [...] supervision of normal first in first trimester ([facility]) * BLOOD GASES CORD ART [...] mother, third trimester, notapplicable or unspecified fetus ([facility]) * CULTURE URINE(Performed 03/07/2017) Performed for IUGR (intrauterine growth restriction) affecting care of mother, third trimester, notapplicable or unspecified fetus ([facility]) * EKG 12-LEAD(Performed 03/05/2017) Performed for Tachycardia * TSH(Performed 03/05/2017) Performed for IUGR (intrauterine growth restriction) affecting care of mother, third trimester, notapplicable or unspecified fetus ([facility]) * COMPREHENSIVE METABOLIC PANEL(Performed 03/05/2017) Performed for IUGR (intrauterine growth restriction) affecting care of mother, third trimester, notapplicable or unspecified fetus ([facility]) * CBC W AUTO DIFFERENTIAL(Performed 03/05/2017) Performed for IUGR (intrauterine growth restriction) affecting care of mother, third trimester, notapplicable or unspecified fetus ([facility]) * CULTURE STREP B(Performed 03/03/2017) Performed for Encounter for supervision of normal first in first trimester ([facility]) * GLUCOSE PROTEIN KETONE URINE - POINT OF CAR(Performed 03/03/2017) Performed for Encounter for supervision of normal first in first trimester ([facility]) * BIOPHYSICAL PROFILE W NST(Performed 02/26/2017) Performed for Uterine size date discrepancy , third trimester ([facility]) * BIOPHYSICAL PROFILE W NST(Performed 02/24/2017) Performed for Uterine size date discrepancy , third trimester ([facility]) * CHLAMYDIA + GC AMPLIFIED PROBE(Performed 02/24/2017) Performed for Vaginal discharge * GLUCOSE PROTEIN KETONE URINE - POINT OF CAR(Performed 02/24/2017) Performed for Encounter for supervision of normal first in first trimester ([facility]) * BIOPHYSICAL PROFILE W NST(Performed 02/17/2017) Performed for Uterine size date discrepancy , third trimester ([facility]) * GLUCOSE PROTEIN KETONE URINE - POINT OF CAR(Performed 02/17/2017) Performed for Encounter for supervision of normal first in first trimester ([facility]) * BIOPHYSICAL PROFILE W NST(Performed 02/10/2017) Performed for Uterine size date discrepancy , third trimester ([facility]) * SONOGRAM - LIMITED(Performed 02/04/2017) * TYPE + SCREEN PANEL(Performed 02/03/2017) * CBC W AUTO DIFFERENTIAL(Performed 02/03/2017) * COAGULATION PANEL W D-DIMER(Performed 02/03/2017) * BIOPHYSICAL PROFILE W NST(Performed 02/03/2017) Performed for Uterine size date discrepancy , third trimester ([facility]) * URINE MICROSCOPIC ONLY REFLEX TO CULTURE(Performed 01/31/2017) Performed for Encounter for supervision of normal first in first trimester ([facility]) * URINALYSIS REFLEX MICROSCOPIC REFLEX CULTURE(Performed 01/31/2017) Performed for Encounter for supervision of normal first in first trimester ([facility]) * VAS BILATERAL VENOUS DUPLEX LE(Performed 01/26/2017) Performed for SOB (shortness of breath) * XR CHEST 2VW(Performed 01/26/2017) Performed for SOB (shortness of breath) * URINALYSIS REFLEX MICROSCOPIC REFLEX CULTURE(Performed 01/26/2017) Performed for Encounter for supervision of normal first in first trimester ([facility]) * CULTURE URINE(Performed 01/26/2017) Performed for Encounter for supervision of normal first in first trimester ([facility]) * EKG 12-LEAD(Performed 01/26/2017) Performed for SOB (shortness of breath) * SONOGRAM - COMPLETE(Performed 01/25/2017) * GLUCOSE PROTEIN KETONE URINE - POINT OF CAR(Performed 01/25/2017) Performed for Encounter for supervision of normal first in first trimester ([facility]) * RPR(Performed 01/25/2017) Performed for Encounter for supervision of normal first in first trimester ([facility]) * CBC W AUTO DIFFERENTIAL(Performed 01/25/2017) Performed for Encounter for supervision of normal first in first trimester ([facility]) * GLUCOSE CHALLENGE(Performed 01/25/2017) Performed for Encounter for supervision of normal first in first trimester ([facility]) * IMAGING/RADIOLOGY/XRAY RESULTS ORDER(Performed 12/25/2016) * GLUCOSE PROTEIN KETONE URINE - POINT OF CAR(Performed 12/01/2016) Performed for Encounter for supervision of normal first in first trimester ([facility]) * CULTURE URINE(Performed 11/03/2016) Performed for Encounter for supervision of normal first in first trimester ([facility]) * GLUCOSE PROTEIN KETONE URINE - POINT OF CAR(Performed 11/03/2016) Performed for Encounter for supervision of normal first in first trimester ([facility]) * SONOGRAM - COMPLETE(Performed 11/03/2016) Performed for Encounter for supervision of normal first in first trimester ([facility]), Gastroesophageal reflux disease without esophagitis * GLUCOSE PROTEIN KETONE URINE - POINT OF CAR(Performed 10/06/2016) Performed for Encounter for supervision of normal first in first trimester ([facility]) * CBC W AUTO DIFFERENTIAL(Performed 09/04/2016) Performed for Encounter for supervision of normal first in first trimester ([facility]) * TYPE + SCREEN PANEL(Performed 09/04/2016) Performed for Encounter for supervision of normal first in first trimester ([facility]) * RPR(Performed 09/04/2016) Performed for Encounter for supervision of normal first in first trimester ([facility]) * RUBELLA IMMUNE STATUS(Performed 09/04/2016) Performed for Encounter for supervision of normal first in first trimester ([facility]) * HEPATITIS B SURFACE ANTIGEN W RFLX CONFIRMATION(Performed 09/04/2016) Performed for Encounter for supervision of normal first in first trimester ([facility]) * CYSTIC FIBROSIS MUTATION PANEL(Performed 09/04/2016) Performed for Encounter for supervision of normal first in first trimester ([facility]) * URINALYSIS REFLEX TO MICROSCOPIC NO CULTURE(Performed 09/04/2016) Performed for Encounter for supervision of normal first in first trimester ([facility]) * HEMOGLOBIN ELECTROPHORESIS(Performed 09/04/2016) Performed for Encounter for supervision of normal first in first trimester ([facility]) * HIV-1 HIV-2 ANTIBODY + HIV P24 AG PANEL(Performed 09/04/2016) Performed for Encounter for supervision of normal first in first trimester ([facility]) * OBSTETRIC PANEL (BEAKER)(Performed 09/04/2016) Performed for Encounter for supervision of normal first in first trimester ([facility]) * CHLAMYDIA + GC AMPLIFIED PROBE(Performed 09/04/2016) Performed for Encounter for supervision of normal first in first trimester ([facility]) * CULTURE URINE(Performed 09/04/2016) Performed for Encounter for supervision of normal first in first trimester ([facility]) * GLUCOSE PROTEIN KETONE URINE [...] BIOPHYSICAL PROFILE W NST (10/24/2024 1:59 PM [employer]) Only the most recent of10 resultswithin the time period is included. Linked Results Indication ======== SGA and mildly reduced UA EDBF Incomplete Anatomy Screen Ectopic x2 History ====== OB History 6. Para 1 [id number] 1. live 2017. Gest. age 36 w [...] 4 lb 10 oz EFW by Hadlock ([id number]) IUGR Growth Overview = Exam date GA [...] at 37 weeks gestation. Coding ====== Procedures 17620: [place] [address]: Biophysical Profile W NST 80119: Umbilical Doppler 53047: MCA Doppler Comic Reply PACS Anatomical Region Laterality Modality Other 10/24/2024 1:59 PM [employer] R Reed Leslie MD [facility] ORDERABLES * SONOGRAM - COMPLETE (08/30/2024 10:39 AM [employer]) Only the most recent of5 resultswithin the time period is included. Linked Results Indication ======== SGA and Mildly Elevated UA Doppler on Outside Scan Ectopic x2 History ====== OB History 6. Para 1 [id number] Lab Tests Test Date Result NIPT Low [...] 2 lb 5 oz EFW by Hadlock ([id number]) Head / Face / Neck Biometry: Cephalic [...] adequately visualized: Heart / Thorax RVOT view. [id number] view. Aortic arch view. Ductal arch view. [...] separate MFM visit note. Coding ====== Procedures 98588: US Preg Uterus Detailed 53045: Umbilical Doppler [facility] [employer] PACS Anatomical Region Laterality Modality Other 08/30/2024 10:3 9 AM [employer] R Reed Leslie MD [facility] ORDERABLES * US OB LESS14 WK [...] on 12/04/2020 at 1:41 PM Madison Charles APRN-CHOCOLATE FINISHER OPERATOR US ORDERABLES * (ABNORMAL) URINE MICROSCOPIC ONLY REFLEX TO CULTURE (12/04/2020 11:00 AM CDT) Only the most recent of5 resultswithin the time period is included. Reflex Status Culture not indicated 12/04/2020 11:30 AM CDT [facility] RBC UA 3-5 None Seen, 0-2, 3-5 # /hpf 12/04/2020 11:30 AM CDT [facility] WBC UA 0-5 None Seen, 0-5 # /hpf 12/04/2020 11:30 AM CDT [facility] Bacteria UA Trace(A) None Seen 12/04/2020 11:30 AM CDT [facility] Squamous Epithelial Cells 3-5 None Seen, 0-2, 3-5 /hpf 12/04/2020 11:30 AM CDT [facility] Mucus UA 1+ /LPF 12/04/2020 11:30 AM CDT [facility] Urine URINE SPECIMEN OBTAINED BY CLEAN CATCH PROCEDURE / Unknown Collection / Unknown 12/04/2020 11:00 AM CDT 12/04/2020 11:13 AM CDT Narrative [facility] - 12/04/2020 11:30 AM CDT Madison REYNOLDSCHOCOLATE FINISHER OPERATOR LAB - URINALYSIS ORDERABLES [facility] [address] [place] [address] * (ABNORMAL) URINALYSIS REFLEX MICROSCOPIC REFLEX CULTURE (12/04/2020 11:00 AM CDT) Only the most recent of9 resultswithin the time period is included. Color UA Yellow Straw, Yellow 12/04/2020 11:22 AM CDT [facility] Clarity UA Cloudy(A) Clear 12/04/2020 11:22 AM CDT [facility] Glucose UA Negative Negative 12/04/2020 11:22 AM CDT [facility] Bilirubin UA Negative Negative 12/04/2020 11:22 AM CDT [facility] Ketone UA Negative Negative 12/04/2020 11:22 AM CDT [facility] Specific [place] UA 1.012 1.005 - 1.030 12/04/2020 11:22 AM CDT [facility] Blood UA 3+(A) Negative 12/04/2020 11:22 AM CDT [facility] pH UA 7.0 5.0 - 8.0 pH 12/04/2020 11:22 AM CDT [facility] Protein UA Negative Negative 12/04/2020 11:22 AM CDT [facility] Urobilinogen UA Negative Negative mg/dL 12/04/2020 11:22 AM CDT [facility] Nitrite UA Negative Negative 12/04/2020 11:22 AM CDT [facility] Leukocyte UA Negative Negative 12/04/2020 11:22 AM CDT [facility] Urine Microscopy Urine microscopy to follow 12/04/2020 11:22 AM CDT [facility] Reflex Status Culture not indicated 12/04/2020 11:22 AM CDT [facility] Urine URINE SPECIMEN OBTAINED BY CLEAN CATCH PROCEDURE / Unknown Collection / Unknown 12/04/2020 11:00 AM CDT 12/04/2020 11:13 AM CDT Narrative [facility] - 12/04/2020 11:22 AM CDT Madison BRANDT LAB - URINALYSIS ORDERABLES [facility] [address] [place] [address] * TYPE + SCREEN PANEL (12/04/2020 11:00 AM CDT) Only the most recent of4 resultswithin the time period is included. ABO Rh A POS 12/04/2020 11:55 AM CDT [facility] Comment:History checked. Antibody Screen NEG 11:55 AM CDT [facility] Blood Bank BLOOD SPECIMEN / Unknown Venipuncture / Unknown 12/04/2020 11:00 AM CDT 12/04/2020 11:14 AM CDT Madison BRANDT LAB - BLOOD BANK ORDERABLES [facility] [address] [phone] * (ABNORMAL) CBC W AUTO DIFFERENTIAL (12/04/2020 11:00 AM CDT) Only the most recent of11 resultswithin the time period is included. WBC 7.6 4.4 - 10.7 x10E9/L 12/04/2020 11:24 AM CDT [facility] WBC Corrected 12/04/2020 11:24 AM CDT [facility] RBC 4.58 3.80 - 5.20 x10E12/L 12/04/2020 11:24 AM CDT [facility] Hemoglobin 10.0(L) 12.0 - 15.6 gm/dL 12/04/2020 11:24 AM CDT [facility] Hematocrit 33.3(L) 35.9 - 45.5 % 12/04/2020 11:24 AM CDT [facility] MCV 72.7(L) 80.7 - 98.3 fl 12/04/2020 11:24 AM CDT [facility] MCH 21.8(L) 26.7 - 34.0 pg 12/04/2020 11:24 AM CDT [facility] MCHC 30.0(L) 30.8 - 35.9 gm/dL 12/04/2020 11:24 AM CDT [facility] Platelet Count 431(H) 153 - 416 x10E9/L 12/04/2020 11:24 AM CDT [facility] RDW-CV 18.9(H) 12.1 - 14.9 % 12/04/2020 11:24 AM CDT [facility] MPV 10.3 9.4 - 12.9 fl 12/04/2020 11:24 AM CDT [facility] Neutrophils % 54.7 44.0 - 73.0 % 12/04/2020 11:24 AM CDT [facility] Lymphocytes % 36.8 20.0 - 43.0 % 12/04/2020 11:24 AM CDT [facility] Monocytes % 6.1 5.0 - 13.0 % 12/04/2020 11:24 AM CDT [facility] Eosinophils % 1.7 0.0 - 6.0 % 12/04/2020 11:24 AM CDT [facility] Basophils % 0.4 0.0 - 2.0 % 12/04/2020 11:24 AM CDT [facility] Immature Granulocytes 0.3 0 - 1 % 12/04/2020 11:24 AM CDT [facility] Neutrophil Absolute 4.14 2.01 - 7.14 x10E9/L 12/04/2020 11:24 AM CDT [facility] Lymphocytes Absolute 2.78 1.07 - 3.94 x10E9/L 12/04/2020 11:24 AM CDT [facility] Monocytes Absolute 0.46 0.26 - 1.07 x10E9/L 12/04/2020 11:24 AM CDT [facility] Eosinophils Absolute 0.13 0 - 0.47 x10E9/L 12/04/2020 11:24 AM CDT [facility] Basophils Absolute 0.03 0 - 0.08 x10E9/L 12/04/2020 11:24 AM CDT [facility] Immature Granulocytes Absolute 0.02 0.00 - 0.06 x10E9/L 12/04/2020 11:24 AM CDT [facility] nRBC Auto 0 /100 WBC 12/04/2020 11:24 AM CDT [facility] Blood BLOOD SPECIMEN / Unknown Venipuncture / Unknown 12/04/2020 11:00 AM CDT 12/04/2020 11:14 AM CDT Madison Charles APRN-CHOCOLATE FINISHER OPERATOR LAB - HEMATOLOGY ORDERABLES Performing Organization Address City/State/[facility] Co de Phone Number [facility] [address] [place] [address] * (ABNORMAL) COMPREHENSIVE METABOLIC PANEL (12/04/2020 11:00 AM CDT) Only the most recent of7 resultswithin the time period is included. [facility] Glucose 91 70 - 105 mg/dL 12/04/2020 11:34 AM CDT [facility] Sodium 138 136 - 145 mmol/L 12/04/2020 11:34 AM CDT [facility] Potassium 4.0 3.5 - 5.1 mmol/L [...] CDT 12/04/2020 11:14 AM CDT Madison Charles DIRECTOR CORPORATE COMMUNICATIONS-CHOCOLATE FINISHER OPERATOR LAB - CHEMISTRY O RDERABLES [facility] [address] [place] [address] * HCG BETA BLOOD QUANTITATIVE (12/04/2020 11:00 AM CDT) Only the most recent of2 resultswithin the time period is included. hCG Quantitative 6.56 mIU/mL 12/05/19 11:41 AM CDT [facility] Blood BLOOD SPECIMEN / Unknown Venipuncture / Unknown 12/04/2020 11:00 AM CDT 12/04/2020 11:14 AM CDT Narrative [facility] - 12/04/2020 11:41 AM CDT hCG [...] FSH >20 IU/L makes unlikely. Madison Charles APRN-CHOCOLATE FINISHER OPERATOR LAB - CHEMISTRY O RDERABLES Performing Organization Address [facility] Co de Phone Number [facility] [address] [place] [address] * CARDIAC EKG ORDER (08/09/2019 8:11 PM [employer]) Only the most recent of2 resultswithin the time period is included. Narrative 08/09/2019 8:11 PM [employer] Ordered by an unspecified provider. Scanned Document CARDIAC SERVICES ORD ERABLES * CT THORAX ABDOMEN PELVIS W CONT (08/07/2019 8:18 PM L[employer]) Anatomical Region Laterality Modality Chest, Abdomen, Pelvis Computed Tomography 08/07/2019 8:30 PM [employer] Impressions 08/07/2019 8:37 PM [employer] No acute findings in the chest and abdomen. A trace of free fluid is visible in the pelvis in association with a 1.2 cm left adnexal cyst. Please see above for other findings. Reading Radiologist: Vincent Brooks MD on 08/07/2019 at 8:37 PM Narrative 08/07/2019 8:37 PM [employer] CT CHEST, ABDOMEN AND PELVIS INDICATION: Back [...] 08/07/2019 at 8:37 PM Cortez Thuc Hang DIRECTOR CORPORATE COMMUNICATIONS-CHOCOLATE FINISHER OPERATOR CT ORDERABLES * CT CERVICAL SPINE NON CONTRAST (08/07/2019 7:54 PM [employer]) Anatomical Region Laterality Modality Spine Computed Tomogra phy 08/07/2019 8:42 PM [employer] Impressions 08/07/2019 8:43 PM [employer] No fracture can be identified. Please see above. Reading Radiologist: Vincent Brooks MD on 08/07/2019 at 8:43 PM Narrative 08/07/2019 8:43 PM [employer] Examination: CT Cervical Spine, without contrast. Information [...] or syntax problems by a trained medical imaging specialist. For questions about the report, please [...] or syntax problems by a trained medical imaging specialist. For questions about the report, please contact the Radiology Department. IMPRESSION No fracture can be identified. Please see above. Reading Radiologist: Vincent Brooks MD on 08/07/2019 at 8:43 PM Cortez Thuc Hang DIRECTOR CORPORATE COMMUNICATIONS-CHOCOLATE FINISHER OPERATOR CT ORDERABLES * CT HEAD NON CONTRAST (08/07/2019 7:53 PM L[employer]) Only the most recent of2 resultswithin the time period is included. Anatomical Region Laterality Modality Head Computed Tomogra phy 08/07/2019 8:23 PM [employer] Impressions 08/07/2019 8:24 PM [employer] No acute findings in the brain. Noncontrast brain CT. Please see above. Reading Radiologist: Vincent Brooks MD on 08/07/2019 at 8:24 PM Narrative 08/07/2019 8:24 PM [employer] EXAMINATION: CT BRAIN WITHOUT CONTRAST. Information from [...] or syntax problems by a trained medical imaging specialist. Findings: There is no intracranial mass-effect [...] or syntax problems by a trained medical imaging specialist. Findings: There is no intracranial mass-effect [...] 08/07/2019 at 8:24 PM Cortez Thuc Hang DIRECTOR CORPORATE COMMUNICATIONS-CHOCOLATE FINISHER OPERATOR CT ORDERABLES * EKG 12-LEAD (08/07/2019 6:37 PM L[employer]) Only the most recent of6 resultswithin the time period is included. Ventricular Rate 83 BPM [facility] Atrial Rate 83 BPM [facility] P-R Interval 150 ms [facility] QRS Duration ms 82 ms [facility] Q-T Interval ms 366 ms [facility] QTC Calculation (Bezet) 430 ms [facility] Calculated P [place] 58 degrees [facility] Calculated R [place] 14 degrees [facility] Calculated T [place] 3 degrees [facility] Interpretation EKG Sinus rhythm with Premature atrial complexes with Aberrant conduction Otherwise normal ECG No previous ECGs available Confirmed by RADHA SAAVEDRA MD ([id number]) on 08/10/2019 9:02:54 AM [facility] 08/07/2019 6:37 PM [employer] 08/10/2019 9:02 AM [facility] Reed Eng MD ECG ORDERABLES [facility] * (ABNORMAL) DRUG SCREEN TOX LIMITED BLD PNL 3 INHOUSE (08/07/2019 6:08 PM L[employer]) Only the most recent of2 resultswithin the time period is included. Pathologist [facility] Acetaminophen <3.0(L) 10.0 - 30.0 ug/mL 08/07/2019 7:21 PM [employer] [facility] Ethanol <10.0 <10 mg/dL 08/07/2019 7:21 PM [facility] Salicylate <5.0(L) 15.0-<30.0 mg/dL 08/07/2019 7:21 PM [facility] Blood BLOOD SPECIMEN / Unknown Venipuncture / Unknown 08/07/2019 6:08 PM [employer] 08/07/2019 6:11 PM [employer]ITCH [employer] MAKER Narrative [facility] - 08/07/2019 7:21 PM [facility] ACETAMINOPHEN COMMENT Critical values: 4 Hours [...] may alter the peak level. Contact the [facility] at or reserved for healthcare professionals to assist you in evaluating potentially toxic acetaminophen levels. Reed Eng MD LAB - CHEMISTRY SANGITA ARAIZA Performing Organization Address City/[facility] Co de Phone Number [facility] [address] [place] [address] * PTT (08/07/2019 6:08 PM L[employer]ITCH FRONT MAKER) PTT 29.3 23.0 - 38.4 sec 08/07/2019 6:29 PM [facility] Blood BLOOD SPECIMEN / Unknown Venipuncture / Unknown 08/07/2019 6:08 PM [employer]ITCH [employer]KER 08/07/2019 6:11 PM [employer] Narrative [facility] - 08/07/2019 6:29 PM [employer] Heparin Therapeutic Range for PTT: 71.0 - 109.0 seconds. Diego BRANDT [facility] - COAGULATIO N ORDERABLES Performing Organization Address [facility] Co de Phone Number [facility] [address] [place] [address] * (ABNORMAL) PT-INR (08/07/2019 6:08 PM [employer]) PT 14.3 12.1 - 14.8 sec 08/07/2019 6:29 PM [employer] [facility] INR 1.2(H) 0.9 - 1.1 08/07/2019 6:29 PM [employer] [facility] Blood BLOOD SPECIMEN / Unknown Venipuncture / Unknown 08/07/2019 6:08 PM [employer] 08/07/2019 6:11 PM [employer] Narrative [facility] - 08/07/2019 6:29 PM [employer] Conventional Warfarin Anticoagulant Therapy: INR Reference Range: 2.0-3.0 Intensive Warfarin Anticoagulant Therapy: INR Reference Range: 2.5-3.5 Diego BRANDT [facility] - COAGULATIO N ORDERABLES Performing Organization Address City/[facility]/ZIP Co de Phone Number [facility] [address] [place] [address] * LIPASE BLOOD (08/07/2019 6:08 PM [employer]) Only the most recent of3 resultswithin the time period is included. Lipase 26 8 - 78 U/L 08/07/2019 6:32 PM [employer] [facility] Blood BLOOD SPECIMEN / Unknown Venipuncture / Unknown 08/07/2019 6:08 PM [employer] 08/07/2019 6:11 PM [employer] Diego BRANDT [facility] - CHEMISTRY ORDERABLES Performing Organization Address [facility] Co de Phone Number [facility] [id number] [place] [phone] * XR CERVICAL SPINE 2 OR 3 VWS (08/07/2019 1:24 PM [employer]) Anatomical Region Laterality Modality Spine Radiographic Karen ging 08/07/2019 1:30 PM [employer] Narrative 08/07/2019 1:30 PM [employer] Cervical spine Indication for examination: Trauma with [...] SPINE 2 OR 3VW (08/07/2019 1:23 PM [employer]) Anatomical Region Laterality Modality Spine Radiographic Karen ging 08/07/2019 1:30 PM [employer] Narrative 08/07/2019 1:31 PM [employer] Lumbar spine Indication for examination: Trauma with [...] * HCG URINE QUALITATIVE (08/07/2019 11:56 AM [employer]) Pathologist [facility] hCG Qualitative Urine Negative Negative 08/07/2019 12:09 PM [employer] [facility] Urine URINE / Unknown Collection / Unknown 08/07/2019 11:56 AM [employer] 08/07/2019 12:02 PM [employer] Reed Eng MD LAB - URINALYSIS ORD ERABLES [facility] [address] [place] [address] * (ABNORMAL) DRUG SCREEN TOX URINE PANEL (08/07/2019 11:56 AM [employer]) Only the most recent of4 resultswithin the time period is included. Amphetamines Screen Urine Not detected Not detected 08/07/2019 7:22 PM [facility] Barbiturates Screen Urine Not detected Not detected 08/07/2019 7:22 PM [facility] Benzodiazepines Screen Urine Not detected Not detected 08/07/2019 7:22 PM [facility] Cannabinoids Screen Urine Detected(A) Not detected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 and subjected to a solution-phase multiplex allele-specific primer extension with subsequent hybridization to a bead array and fluorescence detection. Polymorphisms F508C, I506V and I507V are included in this panel to rule out false positive [id number] homozygotes. Reflex testing of 5T is included in the panel for R117H interpretation. False positive or negative results may occur for reasons that include genetic variants, blood transfusions, bone marrow transplantation, erroneous representation of family relationships or contamination of a sample with maternal cells. REFERENCES: 1. Updates on Carrier Screening for Cystic Fibrosis. (2011) Am J Ob Gynecol 117(4):8041-1223 2. Errol et al. (2004) Shanthi Med 6:387-91 3. Chalo et al. (2002) Shanthi Med 4:379-391 4. Preconception and carrier screening for cystic fibrosis: (2001)ACOG.ACMG publication Results Released By: Vasile Pedersen, Ph.D., Book Sorter Released By: Vasile Pedersen, Ph.D., Director Comment Comment 09/15/2016 1:08 PM [employer] [facility] ([facility]) Comment: The assay provides information intended [...] Unknown Venipuncture / Unknown 09/04/2016 11:20 AM [employer] 09/04/2016 11:43 AM [employer] Narrative [facility] ([facility]) - 09/15/2016 1:08 PM [employer] Performed at: [address] [place] [phone] Sales Agent Food Vending Service: Adeola Granados MD, Phone: [phone] Ignacia Roca MD LAB - HEMATOLOGY ORDERABLES [facility] [address] [place] [address] * LAB RESULTS ORDER (08/03/2013 3:05 AM [employer]) Narrative 08/03/2013 3:05 AM [employer] Ordered by an unspecified provider. Transcriptions Document, Scanned - 08/03/2013 3:05 AM CST Scanned Document LAB - THERAPEUTIC DR CARTAGENA MONITORING ORDERABLES * HCG URINE QUALITATIVE - POCT (IP) TANIA (12/04/2012 4:24 PM CDT) HCG Qual Urine Negative Negative [facility] PO[facility] TEST[facility] QC Verified Yes Yes [facility] PO CT TESTING Urine specimen (specimen) URINE / Unknown 12/04/2012 4:24 PM CDT Emmy Mccoy APRN-CHOCOLATE FINISHER OPERATOR LAB - POINT OF CAR E ORDERABLES Performing Organization Address [facility] Co de Phone Number [facility] [address] [place] [address] * (ABNORMAL) URINALYSIS MICROSCOPIC ONLY (12/04/2012 4:19 PM CDT) RBC UA >100(A) 0-2, 2-5 # /hpf 12/04/2012 4:51 PM CDT [facility] WBC UA 5-10(A) 0-2, 2-5 # /hpf 12/04/2012 4:51 PM CDT [facility] Bacteria UA Trace None Seen, Trace 12/04/2012 4:51 PM CDT [facility] Epithelial Cell UA 2-5 0-2, 2-5 12/04/2012 4:51 PM CDT [facility] Mucus UA 1+ (none) 12/04/2012 4:51 PM CDT [facility] Urine specimen (specimen) URINE SPECIMEN OBTAINED BY CLEAN CATCH PROCEDURE / Unknown 12/04/2012 4:19 PM CDT 12/04/2012 4:28 PM CDT Emmy Darius STAUFFER-CHOCOLATE FINISHER OPERATOR LAB - URINALYSIS O RDERABLES Performing Organization Address [facility] Co de Phone Number [facility] [address] [place] [address] Care Teams Sap Bw Developer Relationship Specialty Start Date End Date PcpCarolina PCP - General 04/16/23 Andres Angela MD Psychiatry 12/16/18 Andres Angela MD Psychiatry 11/16/19
[2024-11-01] MEDS: AMPICILLIN 2 GM/NS 100 ML 2 GM/100 ML BAG IVPB (00:50)
[2024-11-01] MEDS: LACTATED RINGERS 1,000 ML 125 ML IV CONT ×3 (00:51→11:40)
[2024-11-01 00:52] LABS: Basophils Percent Auto 0.2 % (0.2-1.2); Eosinophils Absolute Auto 0.1 K/mm3 (0-0.3); Eosinophils Percent Auto 0.4 % (0-4.4); Hematocrit 30.6 % (37.0-47.0); Hemoglobin 9.8 g/dL (12.0-15.0); Immature Granulocyte Absolute 0.11 K/mm3 (0.00-0.031); Immature Granulocyte Percent A 0.8 % (0-0.5); Lymphocytes Absolute Auto 2.43 K/mm3 (0.9-3.2); Lymphocytes Percent Auto 17.3 % (18.3-44.2); Mean Corpuscular Hemoglobin 26.3 pg (26-34); Mean Corpuscular Volume 82.3 fl (80-100); Monocytes Absolute Auto 0.6 K/mm3 (0.1-0.6); Monocytes Percent Auto 4.2 % (2.6-8.5); Neutrophils Absolute Auto 10.8 K/mm3 (1.3-6.7); Neutrophils Percent Auto 77.1 % (45.5-73.1); Nucleated Red Blood Cells Perc 0.1 % (0.0-0.2); Platelet Count Result 313 k/mm3 (150-375); Red Blood Count 3.72 M/mm3 (4.2-5.4); Red Cell Distribution Width 14.1 % (11.5-14.5)
[2024-11-01 01:20] LABS: Rapid Plasma Reagin Non-Reactive (NonReactive)
[2024-11-01] MEDS: hydrOXYzine HCL 25 MG TABLET PO (01:45)
[2024-11-01 01:46] LABS: HIV 1/2 Ab P24 Ag Result Negative (Negative)
[2024-11-01] MEDS: OXYTOCIN 30 UNITS/NS 500 ML 30 UNITS/500 ML BAG IV CONT (01:46)
--- NOTE | 2024-11-01 03:28 | P.HP_ITS ---
H&P: HPI History of Present Illness Date/Time: 11/01/24 03:28 Chief Complaint: growth restriction Narrative: Patient is a 28 year old at 37 weeks who presents for medical induction of labor indicated for growth restriction (AC <1% with elevated MCA). She has been monitoring with [facility] and testing has been overall reactive until most recent testing showed elevated MCA dopplers. 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 Denies strong contractions, leakage of fluid or vaginal bleeding. Good movement. Review of Systems Review of Systems: All systems reviewed & are unremarkable except as noted in HPI and below PMFSH Past Medical History Medical History Ectopic Surgical History Surgical History History of surgery on upper extremity History of dilation and curettage Family History Family History Other Family history non-contributory Social History Social History Years smoked: 15 Smoking status: Never smoker Tobacco type: cigarettes Second hand tobacco smoke exposure: No Alcohol intake: current Drinks per week: 1 Substance use: never Do You Feel Safe in your Home?: Yes Lack of Transportation: No Lack of Food: Never True Current Housing: I Have Housing Concerned About Future Housing: No Difficulty Paying Gas/Electric Bills: No Difficulty Paying for Meds: No Currently Unemployed: No Education: High School Diploma/GED Difficulty w/ Childcare or Family Care: No Spiritual care concerns: No Meds Home Medications and Allergies Home Medications ?Medication ?Instructions ?Recorded ?Confirmed ?Type ferrous sulfate 325 mg (65 mg 325 mg PO DAILY #30 tabs 10/29/23 11/01/24 Rx iron) tablet sumatriptan succinate 50 mg tablet 50 mg PO BID 10/29/23 11/01/24 History valacyclovir 500 mg tablet 500 mg PO Q12H 11/01/24 11/01/24 History Allergies Allergy/AdvReac Type Severity Reaction Status Date / Time No Known Allergies Allergy Verified 11/13/21 10:33 Vital Signs Vital Signs - 24 hr 11/01/24 01:03 11/01/24 01:31 11/01/24 01:49 Temperature 97.6 F Pulse Rate 83 Blood Pressure 122/76 Oxygen Delivery Room Air 11/01/24 02:01 11/01/24 02:31 11/01/24 03:01 Temperature Pulse Rate 97 74 82 Blood Pressure 110/75 121/64 118/71 Oxygen Delivery Exam Const: General: comfortable and no acute distress HENMT: Mouth: Yes moist mucous membranes Eyes: General: appearance normal, both eyes and all related structures Resp: Effort & Inspection: normal respiratory effort Cardio: Rate: regular rate Skin: General skin exam: normal color Extrem: General: normal to inspection Psych: Mental Status: mental status grossly normal H&P: Results Labs Labs: Short CBC 11/01/24 Range/Units 00:21 WBC 14.0 H (4.5-10.0) K/mm3 Hgb 9.8 L (12.0-15.0) g/dL Hct 30.6 L (37.0-47.0) % Plt Count 313 (150-375) k/mm3 Assessment and Plan Assessment and plan (1) growth restriction antepartum: Code(s): O36.5990 - Maternal care for other known or suspected poor growth, unspecified trimester, not applicable or unspecified Status: Acute Assessment and Plan: - EFW 3%, AC<1% with elevated MCA dopplers - [facility] recommends induction at 37 weeks due to AC and MCA dopplers - pitocin per protocol - GBS positive, ampicillin per protocol - anticipate
[2024-11-01] MEDS: AMPICILLIN 1 GM/NS 50 ML 1 GM/50 ML BAG IVPB ×2 (04:39→08:42)
--- NOTE | 2024-11-01 06:38 | WPDANESEPP ---
Anes - Eval Pre Procedure Procedure: labor epidural Date/Time: 11/01/24 06:38 Surgeon: ad Preop Diagnosis: pain during labor Pre Op Diagnosis: IOL Patient Data Age: 28 Gender: F Height: 1.55 m Weight: 84 kg Last Vital Signs Temp 36.6 C 11/01/24 05:00 Pulse 61 11/01/24 06:31 BP 117/72 11/01/24 06:31 O2 Del Method Room Air 11/01/24 01:03 Allergies Allergy/AdvReac Type Severity Reaction Status Date / Time No Known Allergies Allergy Verified 11/13/21 10:33 Home Medications ?Medication ?Instructions ?Recorded ?Confirmed ?Type ferrous sulfate 325 mg (65 mg 325 mg PO DAILY #30 tabs 10/29/23 11/01/24 Rx iron) tablet sumatriptan succinate 50 mg tablet 50 mg PO BID 10/29/23 11/01/24 History valacyclovir 500 mg tablet 500 mg PO Q12H 11/01/24 11/01/24 History Laboratory Tests 11/01/24 11/01/24 00:20 00:21 WBC 14.0 H K/mm3 (4.5-10.0) RBC 3.72 L M/mm3 (4.2-5.4) Hgb 9.8 L g/dL (12.0-15.0) Hct 30.6 L % (37.0-47.0) MCV 82.3 fl (80-100) MCH 26.3 pg (26-34) MCHC 32.0 g/dl (32-36) RDW 14.1 % (11.5-14.5) Plt Count 313 k/mm3 (150-375) MPV 11.0 H fl (7.4-10.4) Immature Gran % (Auto) 0.8 H % (0-0.5) Neut % (Auto) 77.1 H % (45.5-73.1) Lymph % (Auto) 17.3 L % (18.3-44.2) [place] % (Auto) 4.2 % (2.6-8.5) Eos % (Auto) 0.4 % (0-4.4) Baso % (Auto) 0.2 % (0.2-1.2) Lymph # (Auto) 2.43 K/mm3 (0.9-3.2) [place] # (Auto) 0.6 K/mm3 (0.1-0.6) Eos # (Auto) 0.1 K/mm3 (0-0.3) Baso # (Auto) 0.0 K/mm3 (0.0-0.1) Abs Immat Gran (auto) 0.11 H K/mm3 (0.00-0.031) Absolute Neuts (auto) 10.8 H K/mm3 (1.3-6.7) Absolute Nucleated RBC 0.020 H K/mm3 (0.0-0.012) Nucleated RBC % 0.1 % (0.0-0.2) RPR Non-reactive (NonReactive) HIV 1&2 Ab/P24 Ag 4thGn Negative (Negative) Blood Type A Positive Antibody Screen Negative Patient hx anesthesia problems: none Family hx anesthesia problems: none Results Review: All pre-operative results and documents have been reviewed as part of the pre-operative evaluation. [facility] Past Medical History Medical History (Updated 11/01/24 @ 06:39 by Yaneth Zhang CRNA) Migraines, neuralgic IUP (intrauterine ), incidental Anxiety GERD (gastroesophageal reflux disease) Asthma Ectopic Surgical History Surgical History History of surgery on upper extremity History of dilation and curettage Family History Family History Other Family history non-contributory Social History Social History Years smoked: 15 Smoking status: Never smoker Tobacco type: cigarettes Second hand tobacco smoke exposure: No Alcohol intake: current Drinks per week: 1 Substance use: never Do You Feel Safe in your Home?: Yes Lack of Transportation: No Lack of Food: Never True Current Housing: I Have Housing Concerned About Future Housing: No Difficulty Paying Gas/Electric Bills: No Difficulty Paying for Meds: No Currently Unemployed: No Education: High School Diploma/GED Difficulty w/ Childcare or Family Care: No Spiritual care concerns: No Exam Day of Procedure 11/01/24 06:38
[2024-11-01] MEDS: SIMETHICONE 80 MG TAB.CHEW PO (07:12)
--- NOTE | 2024-11-01 09:38 | PM.OBPNLAB ---
Pain Control Date/time seen: 11/01/24 09:38 Pain control: tolerating well Pelvic Exam Dilation (cm): 4 Effacement (%): 60 station: -2 Amniotic membrane status: Ruptured (clear fluid) Status status: Category l Assessment and Plan Pitocin rate (mU/min): 14 Assessment: induction ongoing Plan: continuous present management
[2024-11-01] MEDS: SODIUM CHLORIDE 0.9% IV 300 ML 600 ML I-UTERINE (10:42)
[2024-11-01] MEDS: OXYTOCIN 30 UNITS/NS 500 ML 30 UNITS/500 ML BAG 125 UNITS IV CONT (12:38)
--- NOTE | 2024-11-01 14:56 | PM.OBPRVD ---
OB - Vaginal Delivery Note Procedure Delivery date: 11/02/24 Events: Intrauterine Growth Restriction (IUGR) and Positive Group B Strep (GBS) Induction method: Per Pitocin Protocol Delivery augmentation: Rupture of Membranes Delivery monitor: External FHT and Internal Uterine Route of delivery: Episiotomy description: None Laceration Description: None Delivery repair: vicryl Specimen: No Quantitative Blood Loss (ml): 50 Anesthesia type: Epidural Disposition: Floor Complications: No immediate complications Narrative: See H&P and notes for details on patient's admission and labor. She progressed to complete cervical dilation and at the appropriate time began pushing. With adequate expulsive efforts by the mother, the baby's head was delivered without difficulty. Nuchal cord was present x1 and was delivered through. The baby's left shoulder was anterior and delivered under the pubic symphysis without difficulty. The posterior shoulder and the rest of the baby delivered without difficulty. The umbilical cord was doubly clamped and cut after 60 seconds of delayed cord clamping. Care of the was then assumed by the nursing staff. [place] Baby Date of : 11/01/24 Gestational Age by Date: 37 gender: Female presentation: vertex position: Left Occiput Anterior Placenta delivery description: Expressed Cord Vessel Description: 3 Vessels, Nuchal Cord, Loose and Delayed Cord Clamping
[2024-11-01] MEDS: BENZOCAINE 20% AER SPR (*SP) 56 GM CAN 1 SPRAY TOPICAL (15:24)
[2024-11-01] MEDS: WITCH HAZEL 40 PADS 1 PAD TOPICAL (15:24)
--- NOTE | 2024-11-01 15:55 | PC.NURSE ---
Patient recently admitted to unit. Baby had a blood sugar WNL and mom is attempting to breastfeed. She has baby unswaddled but in a sleeper. Encouraged skin to skin to assist with waking. Mom acknowledges the suggestion. Baby opened her mouth and attempted to latch twice without success. Baby did hold the nipple in her mouth but did not suckle. Mom handles baby and her breast well and is talking to baby and changing her position to assist with waking. Encouraged her to try for 5-10 minutes and if baby is unable to wake, mom should try again in 30 minutes. Mom verbalizes understanding of this plan. Name/number on communication board. Reported to primary RN.
[2024-11-01] MEDS: IBUPROFEN 600 MG TABLET PO ×2 (17:05→22:58)
[2024-11-02 04:21] VITALS: BP 113/70; PULSE 61; RESP 16; TEMP 36.3; O2SAT 100
[2024-11-02] MEDS: HYDROcodone/acetaminophen (*CRX) 10-325 MG TABLET 1 TAB PO (05:09)
[2024-11-02 05:31] LABS: Hematocrit 28.1 % (37.0-47.0); Hemoglobin 8.8 g/dL (12.0-15.0)
--- NOTE | 2024-11-02 08:28 | P.PNOB_ITS ---
OB - PN: Subj Subjective Date/time seen: 11/02/24 08:28 Patient comments: no complaints, pain well controlled, incisional pain, tolerating diet and flatus present OB - PN: Obj Data Labs 11/02/24 04:33 Labs: Laboratory Results - last 24 hr 11/02/24 04:33 Hgb 8.8 L Hct 28.1 L OB - PN A/P Plan day: 1 Plan: routine care Comments: No problems, routine care Time Spent With Patient Time: Total time spent is greater than 50% in coordination of care (as documented) at patient's floor/unit and/or counseling patient: Exam 2 Const: General: comfortable, no acute distress and alert Resp: Effort & Inspection: normal respiratory effort Auscultation: no crackles, no rales and no rhonchi Cardio: Rate: regular rate Heart sounds: no click, no murmurs and no rubs GI: Inspection: non-distended GI Palp: No Tenderness to palpation present (GI) Auscultation: normal bowel sounds Other: Incision - CDI Extrem: General: normal to inspection, no pedal edema and no calf tenderness
--- NOTE | 2024-11-02 08:29 | PM.OBDSVD ---
DS: Admitting Diagnosis Discharge Date November 02, 2024 Admitting Diagnosis term DS: Discharge Diagnosis Discharge Diagnosis (1) Term delivered: Code(s): O80 - Encounter for full-term uncomplicated delivery Status: Acute OB - DS: Summary OB Procedures : None OB Procedures Intrapartum: Spontaneous Vag Delivery OB Procedures: : None Peripartum Data Laceration Description: None Episiotomy description: None Time Spent with Patient Time attestation: Total time spent providing and/or coordinating discharge services: DS: Data Data Completed and Pending Labs on day of discharge: Labs from last 24 hours 11/02/24 04:33 Hgb 8.8 L Hct 28.1 L Discharge Plan Discharge Discharging Clinician: Jonathan Leslie Patient Disposition: Home, Self-Care Activity: pelvic rest Diet: regular Patient Instructions: Antibiotic Form Patient Language: Icelandic Stand Alone Forms: General Discharge Information Follow-up/Referrals: Jonathan Leslie MD [Physician] - Discharge Medications: Continued valacyclovir 500 mg tablet 500 mg PO Q12H sumatriptan succinate 50 mg tablet 50 mg PO BID ferrous sulfate 325 mg (65 mg iron) tablet 325 mg PO DAILY Qty: 30 0RF Date of admission: 11/01/24 00:09 Primary Care Provider: UNKNOWN,DOCTOR Admitting Provider: Cleveland Bass Attending physician on admission: Cleveland Bass Condition: Stable
[2024-11-02 08:30] VITALS: BP 104/54; PULSE 57; RESP 18; TEMP 36.4; O2SAT 99
[2024-11-02] MEDS: DOCUSATE SODIUM 100 MG CAPSULE PO ×2 (09:19→16:02)
[2024-11-02] MEDS: POLYSACCHARIDE IRON COMPLEX 150 MG CAPSULE PO ×2 (09:19→16:02)
[2024-11-02] MEDS: MULTIVIT/MIN/PREN/FOL AC/IRON TABLET 1 TAB PO (09:19)
--- NOTE | 2024-11-02 10:18 | PC.NURSE ---
Introductions were made, then consulted with patient to assess needs related to . Mother led the conversation with her?plans to feed?her and the?experience so far. Mother plans on but is open to supplementing with formula as needed, baby is SGA and on glucose checks for first 24 hours of life, so far she has received glucose gel and supplement one time. Encouraged understanding of the benefits of skin to skin (demonstrating unwrapping infant and placing upright on her chest), stimulating with massage touch, changing positions to encourage wakefulness, how to watch for early feeding cues, responsive feeding, feeding on demand (aiming for 8-12 times in 24 hours, about every 2-3 hours), milk production, building/maintaining a milk supply, duration of feeding, signs of adequate intake/output and how to record on the feeding sheet. Mother works well with her infant with encouragement and education. Reviewed positioning and ear, shoulder, hip alignment, supporting the breast to facilitate a deep latch, asymmetrical latch (off-center), leading with the chin with a big, open, wide gape and body close to mother. latched optimally to the [left] breast in [cradle] position. RN advised mother if she feels any pain with the latch that she may want to try the cross cradle or football position to get a deeper latch. Education given to the mother of how to visualize the suckling (with good rocking jaw motion), swallows (dropping of the lower jaw) and how to listen for drinking at the breast (the ka sound). Infant was [able] to maintain latch without pain to mother protecting the nipple with optimal positioning and latching. Reviewed comfort measures of healing with a warm, wet washcloth to rinse breast, then leave open to air-dry, good handwashing when or touching the breast/nipples to prevent infection. Mother voiced understanding of skin to skin, stimulating with massage touch, responsive feedings, hand expressed colostrum, talking to infant to encourage if it has been 2 -2.5 hours since the start of the last , to call if does not latch, or if there is discomfort with . Resources used for education were facilitated with the [visual educational handouts/ tool/mom and baby guide], Inpatient/outpatient resources provided with business card, feeding sheet, name written on the communication board, and the mom/baby guide. Parents voiced understanding of information, demonstrated learning and will call if there is a request for assistance. Reported to the Primary RN.
--- NOTE | 2024-11-02 11:11 | WPDANLDPN2 ---
Anes-Prog Note L&D Date/Time: 11/02/24 11:11 Comfortable throughout: labor and delivery Neuraxial method: epidural Epidural/Spinal procedure site: clean & non-tender Neuro status: Neuro function grossly intact. Cardiovascular status: normal Respiratory status: normal Airway patency: baseline Mental status: baseline Post-Op hydration status: normal Vital Signs: Last Vital Signs Temp 97.3 F L 11/02/24 04:21 Pulse 61 11/02/24 04:21 Resp 16 11/02/24 04:21 BP 113/70 11/02/24 04:21 Pulse Ox 100 11/02/24 04:21 O2 Del Method Room Air 11/01/24 19:50 Pain score (VAS): 0/10 I/O: Intake & Output 11/01/24 11/02/24 11/02/24 23:59 07:59 15:59 Intake Total 100 Balance 100 Post-procedural complaints: none Patient feedback: Patient satisfied with anesthetic care.
[2024-11-02] MEDS: HYDROcodone/acetaminophen (*CRX) 5-325 MG TABLET 1 TAB PO (16:02)
[2024-11-02 20:11] VITALS: BP 120/58; PULSE 75; RESP 15; TEMP 36.7; O2SAT 99
[2024-11-03] MEDS: HYDROcodone/acetaminophen (*CRX) 5-325 MG TABLET 1 TAB PO (01:45)
[2024-11-03 08:00] VITALS: BP 104/77; PULSE 61; RESP 16; TEMP 36.8; O2SAT 100
--- NOTE | 2024-11-03 10:06 | P.PNOB_ITS ---
OB - PN: Subj Subjective Date/time seen: 11/03/24 10:06 Interval history: PPD#2 Doing well, pain controlled tolerating general diet voiding without issue ready for discharge home OB - PN: Obj Data Labs 11/02/24 04:33 OB - PN A/P Assessment and Plan (1) Term delivered: Code(s): O80 - Encounter for full-term uncomplicated delivery Status: Acute Plan day: 2 Plan: discharge home Time Spent With Patient Time: Total time spent is greater than 50% in coordination of care (as documented) at patient's floor/unit and/or counseling patient: Review of Systems 2 Review of Systems: All systems reviewed & are unremarkable except as noted in HPI and below Exam 2 Const: General: comfortable and no acute distress O rientation/consciousness: patient oriented x3 Resp: Effort & Inspection: normal respiratory effort
[2024-11-03] MEDS: DOCUSATE SODIUM 100 MG CAPSULE PO (12:14)
[2024-11-03] MEDS: POLYSACCHARIDE IRON COMPLEX 150 MG CAPSULE PO (12:14)
[2024-11-03] MEDS: MULTIVIT/MIN/PREN/FOL AC/IRON TABLET 1 TAB PO (12:15)
--- NOTE | 2024-11-03 13:15 | PC.NURSE ---
Primary RN discharged patient prior to the feeding plan being entered on baby's discharge plan. Primary RN states that patient was and supplementing sometimes with formula per her choice. Patient has the phone number if she needs further assistance.
== END 2024-11-03 12:52 | disposition home or self-care (01) | DRG 560 ==
LOC: ANHOB2 11-02 08:31 → ANHLDR 11-06 09:01
PROVIDERS: Admitting Provider Obstetrics & Gynecology; Visit Provider Obstetrics & Gynecology
DX: O36.5930 Maternal care for other known or suspected poor fetal growth, third trimester, not applicable or unspecified (principal); O99.824 Streptococcus B carrier state complicating childbirth; O69.81X0 Labor and delivery complicated by cord around neck, without compression, not applicable or unspecified; Z3A.37 37 weeks gestation of pregnancy; Z37.0 Single live birth
CPT/HCPCS: 36415; 85014; 85018; 85025; 86592; 86703; 86850; 86900; 86901; A9270; G0432; J0290; J2590; J2795; J7030; J7120

== ENCOUNTER 2024-11-10 18:34 | Observation (INO) | payer OTHER, SELFPAY ==
--- NOTE | ~2024-11-10 | US_ITS ---
EXAMINATION: US pelvic complete w TV DATE: 11/11/2024 13:41 INDICATION: pelvic pain and bleeding TECHNIQUE: Multiple transabdominal and endovaginal sonographic images of the pelvis were obtained. COMPARISON: None. FINDINGS: The uterus measures 10.8 x 7.1 x 8.8 cm. The endometrial complex measures 9 mm in thickness) of very hypoechoic material, potentially blood or avascular products of conception without evident vascular flow on color Doppler. This measures up to 5 mm thickness within the endometrial canal. 1.4 cm hypoec hoic subserosal fibroid along the posterior wall of the uterus. The right ovary measures 2.9 x 2.4 x 2.6 cm. The left ovary measures 4.7 x 3.1 x 2.6 cm. Larry of flow identified in both ovaries on color Doppler. There is trace amount of anechoic free fluid in the pelv is. IMPRESSION: 1. Very hypoechoic material within the endometrial canal measuring up to 5 mm in thickness without in ternal vascular flow on color Doppler which could represent blood or avascular retained products of c onception. 2. 1.4 cm subserosal fibroid. Reviewed, dictated and finalized at location A. 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 Very hypoechoic material within the endometrial canal measuring up to 5 mm i n thickness without internal vascular flow on color Doppler which could represe nt blood or avascular retained products of conception. 2. 1.4 cm subserosal fibroid.
--- NOTE | ~2024-11-10 | CT_ITS ---
EXAMINATION: CT abdomen pelvis w con DATE: 11/10/2024 21:33 INDICATION: Abdominal pain. Constipation. TECHNIQUE: Computed tomography (CT) of the abdomen and pelvis was performed with 100 mL Omnipaque 350 intravenous contrast. Automated exposure control and iterative reconstruction technique were employe d. The dose-length product was 563.00 mGy-cm. COMPARISON: None. FINDINGS: The visualized portions of lung bases are clear without pneumonia or pleural effusion. The heart size is normal. No pericardial effusion. The liver, gallbladder, spleen, pancreas, adrenal glan ds, and kidneys are normal. The uterus is enlarged, consistent with recent . The endometrial complex measures 12 mm in thickness. Stool distends the rectum. The appendix is normal. There are no pathologically enlarged lymph nodes. There is no free intraperitoneal fluid. There is mild lumbar sp ondylosis. IMPRESSION: 1. Stool distends the rectum. 2. Mildly thickened endometrial complex suspicious for retained products of conception. Reviewed, dictated and finalized at location A. [employer] IMPRESSION: 1. Stool distends the rectum. 2. Mildly thickened endometrial complex suspicious for retained products of con ception.
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
--- OUTSIDE RECORDS SUMMARY | 2024-11-10 18:37 | XMS_ITS | Clinical Summary ---
Author Organization [facility] Address [address] [place] [address] Phone Care Team Providers Care Boat Ride Operator Name Role Phone Unavailable Primary Care Provider Unavailabl e Active Problems Problem Noted Date Diagnosed Date Poor growth affecting management of mother in second trimester 08/16/2024 Encounters Date Type Department Care Team Description 11/08/2024 External Device Data STL ABSTRACTION Provider, Abstract 10/17/2024 External Device Data STL ABSTRACTION Provider, Abstract 10/11/2024 External Device Data STL ABSTRACTION Provider, Abstract 10/11/2024 External Device Data STL ABSTRACTION Provider, Abstract 08/23/2024 10:00 AM ATHLETIC TRAINER - 08/23/2024 11:59 PM ATHLETIC TRAINER Hospital Encounter [facility] Maternal and Ground Floor S [facility] [address] [place] [address] Sheila Chang MD Discharge Disposition: Home or Self Care 08/22/2024 External Device Data STL ABSTRACTION Provider, Abstract 08/16/2024 2:45 PM ATHLETIC TRAINER Initial [facility] Maternal and Medicine [place] [address] [facility] [address] [place] [address] Sheila Chang MD Poor growth affecting management of mother in second trimester, single or unspecified fetus (Primary Dx); 26 weeks gestation of 08/16/2024 1:30 PM ATHLETIC TRAINER - 08/16/2024 11:59 PM ATHLETIC TRAINER Hospital Encounter [facility] Maternal and Ground Floor S [facility] [address] [place] [phone] Mary Campbell MD Discharge Disposition: Home or Self Care 08/10/2024 Orders Only [facility] Maternal and Ground Floor S [facility] [address] [facility] [address] Mary Campbell MD Poor growth affecting management [...] Comments Blood Pressure 113/66 08/16/2024 3:27 PM ATHLETIC TRAINER Pulse 90 08/16/2024 3:27 PM ATHLETIC TRAINER Temperature - - Respiratory Rate - - Oxygen Saturation - - Inhaled Oxygen Concentration - - Weight 79.4 kg (175 lb) 08/16/2024 3:27 PM ATHLETIC TRAINER Height 154.9 cm (5' 1 ) 08/16/2024 3:27 PM ATHLETIC TRAINER Body Mass Index 33.07 08/16/2024 3:27 PM ATHLETIC TRAINER Plan of Treatment Health Maintenance Due Date [...] LTD+UMB ART DOPPLER Routine 08/23/2024 10:31 AM ATHLETIC TRAINER Poor growth affecting management of mother in second trimester, fetus 1 of multiple gestation US OB DETAIL SINGLE GEST Routine 08/16/2024 2:58 PM ATHLETIC TRAINER Abnormal head circumference in relation to growth and age standard from Last 3 Months Results * US OB LTD+UMB ART DOPPLER (08/23/2024 10:31 AM ATHLETIC TRAINER) Anatomical Region Laterality Modality Pelvis Ultrasound 08/23/2024 11:1 5 AM ATHLETIC TRAINER Narrative 08/23/2024 10:40 AM ATHLETIC TRAINER STL LIMITED ----- Pat. Name: MARNIE JONES Study Date: 08/23/2024 11:15am Pat. NO: [id number] Referring MD: MARY CAMPBELL MD Site: [facility] Boiler Helper: Latanya Boss RDMS : 1995 Age: 28 ----- INDICATION ----- Intrauterine Growth Restriction (IUGR) Circumvallate Placenta History of PTL/PTD in Previous , Currently CODING ----- Diagnoses Z3A.27: Weeks of gestation O09.212: Supervision of with history of pre-term labor O43.112: Circumvallate placenta O36.5920: Maternal care for other known or suspected poor growth Procedures 64775: Ultrasound, uterus, real time with image documentation, limited one or more fetuses 05463: Doppler velocimetry, ; umbilical artery 29519: Doppler velocimetry, ; middle cerebral artery METHOD [...] Mid Cerebral Artery: normal PI 1.91 47% Graciela RI 0.83 67% [facility] PS 40.41 cm/s PS 1.15 MoM ED 6.82 cm/s S / D 5.93 CPR PI 1.26 2% Ebbing GROWTH OVERVIEW ----- Exam date GA BPD (mm) HC (mm) AC (mm) FL (mm) HL (mm) EFW (g) 08/16/2024 26w 0d 65.1 50% 233.7 11% 197.9 7% 49.5 57% 44.8 63% 813 20% COMMENT ----- Patient's name and date of were verified by the evaporator prior to the exam. IMPRESSION ----- Viable [...] testing and ultrasounds in the center at [place] if she chooses. Procedure Note Chandler Salas MD - 08/23/2024 ST LIMITED ----- Pat. Name:Pedrito JONES Date:08/23/2024 11:15am Pat. NO: [id number] MD:MARY CAMPBELL MD [facility] [place]Latanya Boss RDMS :1995Age:28 ----- INDICATION ----- Intrauterine Growth Restriction (IUGR) Circumvallate Placenta History of PTL/PTD in Previous , Currently CODING ----- Diagnoses Z3A.27: Weeks of gestation O09.212: Supervision of with history ofpre-term labor O43.112: Circumvallate placenta O36.5920: Maternal care for other known orsuspected poor growth Procedures 23995: Ultrasound, uterus, real time withimage documentation, limited one or more fetuses 38028: Doppler velocimetry, ; umbilicalartery 19974: Doppler velocimetry, ; middle cerebralartery METHOD ----- Transabdominal ultrasound examination ----- Vora . Number of fetuses: 1 DATING ----- GA by prior w + 0 d [...] and date of were verified by the evaporator prior tothe exam. IMPRESSION ----- Viable at [...] testing and ultrasounds in the perinatalcenter at [place] if she chooses. us Sheila Chang MD US ORDERABLES Final Result * US OB DETAIL SINGLE GEST (08/16/2024 2:58 PM ATHLETIC TRAINER) Anatomical Region Laterality Modality Pelvis Ultrasound 08/16/2024 1:58 PM ATHLETIC TRAINER Narrative 08/16/2024 2:56 PM ATHLETIC TRAINER STL COMP ----- Pat. Name: MARNIE JONES Study Date: 08/16/2024 1:58pm Pat. NO: [id number] Referring MD: Site: [facility] Boiler Helper: Clair Hicks RDMS : 1995 Age: 28 [...] Z36.3: Encounter for screening for malformations Procedures 95258: Ultrasound, uterus, real time with image documentation, and maternal evaluation plus detailed anatomic examination, transabdominal approach 93132: Doppler velocimetry, ; umbilical artery 35192: Doppler velocimetry, ; middle cerebral artery METHOD [...] 1 lb 13 oz EFW by Hadlock ([id number]) Head / Face / Neck Biometry: Dealer Relationship Manager 3.6 mm CM 5.0 mm 14% Nicolaides [...] view. RVOT view. LVOT view. 3-vessel view. 5-sxiady-fhlzovu view. Situs. Aortic arch view. Ductal arch [...] bpm Mid Cerebral Artery: PI 2.28 87% Graciela RI 0.88 90% Graciela PS 36.20 cm/s PS 1.08 MoM ED [...] and date of were verified by the evaporator before the exam IMPRESSION ----- Vora @ [...] Pat. Name:Pedrito JONES Date:08/16/2024 1:58pm Pat. NO: [id number] MD: [facility] Hicks RDMS :1995Age:28 ----- INDICATION ----- Anatomy Survey low risk NIPT Intrauterine Growth Restriction (IUGR) Circumvallate Placenta History of PTL/PTD in Previous , 36 weeks PPROM Currently CODING ----- Diagnoses Z3A.26: Weeks of gestation O09.212: Supervision of with history ofpre-term labor O43.112: Circumvallate placenta O36.5920: Maternal care for other known orsuspected poor growth Z36.3: Encounter for screening formalformations Procedures 41374: Ultrasound, uterus, real time withimage documentation, and maternal evaluation plus detailed anatomic examination,transabdominal approach 93555: Doppler velocimetry, ; umbilicalartery 34261: Doppler velocimetry, ; middle cerebralartery METHOD ----- Transabdominal ultrasound examination ----- Vora . Number of fetuses: 1 DATING ----- Method of dating:based on stated WILLIE GA by prior [id number] w + 0 d WILLIE by prior [...] 1 lb 13 oz EFW by Hadlock ([id number]) Head / Face / Neck Biometry: Dealer Relationship Manager 3.6 mm CM 5.0 mm 14%Nicolaides Inner [...] 4-chamber view. RVOT view. LVOT view. 3-vesselview. 9-viupmi-ktetpzs view. Situs. Aortic arch view. Ductal arch [...] and date of were verified by the evaporator beforethe exam IMPRESSION ----- Vora @ 26w [...] of this patient. us Mary Campbell MD US ORDERABLES Edited Result - Final from Last 3 Months Insurance [employer] MEDICAID
--- OUTSIDE RECORDS SUMMARY | 2024-11-10 18:37 | XMS_ITS | Continuity of Care Document ---
Author Organization [facility] Address [address] [place] [address] Phone Care Team Providers Care Translator Deaf Name Role Phone Unavailable Unavailable Unavailable Medications [...] Diagnoses Date Provider Providers Copied on Encounter [facility] , [address], [place], [place], [id number], [place] tel:[phone] [facility] [place] Encounter for dental exam and cleaning w abnormal findings No Information Referring Provider: Farooq Win, [address], [place], [address] . tel:[phone] [facility] , [address], [place], [place], [id number], [place] tel:[phone] [facility] [place] Dental caries on smooth surface penetrating into pulp No Information Referring Provider: Farooq Win, [address], [place], [address] . tel:[phone] [facility] , [address], [place], [place], [id number], tel:[phone] [facility] [place] Encounter for dental exam and cleaning w abnormal findings No Information [facility] , [facility] [address], [place], [place], [id number], tel:[phone] [facility] [place] Encounter for dental exam and cleaning w abnormal findings No Information Referring Provider: Yoseph Ramon, [address], [place], [address] . tel:[phone] [facility] , [address], [place], [place], [address], tel:[phone] [facility] [place] Encounter for dental exam and cleaning w abnormal findings Antonio Yuen. [address], [place], [place], [address]. tel:[phone] Referring Provider: Wilfrid Alvarez, [address] [address], [place], [address] . tel:[phone] [facility] , [address] [address], [place], [place], [address], tel:[phone] [facility] [place] No Information Lawrence Roberson. [address], [id number], . tel:[phone] Family History Family Member Type Diagnosis Age At Onset No Information Payers Payer name Insurance type Covered alliance party ID john dennison(s) [facility] Community Plan MCAID [id number] Social History Type Description Quantity Date Captured [...]
--- OUTSIDE RECORDS SUMMARY | 2024-11-10 18:37 | XMS_ITS | Encounter Summary ---
Author Organization [facility] Address [address] [place] [address] Care Team Providers Care Critical Care Cns Name Role Phone Unavailable Primary Care Provider Unavailabl e Encounter Details Date Type Department Care Team (Late st Contact Info) Description 11/08/2024 External Device Data [facility] ABSTRACTION [...]
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
--- OUTSIDE RECORDS SUMMARY | 2024-11-10 18:37 | XMS_ITS | Encounter Summary ---
Author Organization 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 Not on file Not on file Not on file documented as of this encounter Plan of Treatment Upcoming Encounters Date Type Department Care Team (Late st Contact Info) Description 11/19/2024 Hospital Encounter [address] [address] Gal Bass MD [address] [facility] [phone] [place] [address] documented as of this encounter Procedures Procedure Name Priority Date/Time Associated Diagnosis Comments SCAN - RADIOLOGY/IMAGING 03/03/2021 documented in this encounter Results * SCAN - RADIOLOGY/IMAGING (03/03/2021) Anatomical Region Laterality Modality Other us Provider Scanning Final Result documented in this encounter Visit Diagnoses Not on filedocumented in this encounter Care Teams Town Planner Relationship Specialty Start Date End Date Brian Velarde DO [address] [place] [address] PCP - General Family Practice 07/25/20 documented as of this encounter
--- OUTSIDE RECORDS SUMMARY | 2024-11-10 18:38 | XMS_ITS | Data Portability ---
Author Organization [facility] Address [address] [place] [address] Care Team Providers Care Parts Specialist Name Role Phone DWIGHT WILKINS Primary Care Provider Assessment No assessment recorded. Plan of Treatment Reminders Order Date Submit Date Provider Last Modified By Organization Details Last Modified Time Details Appointments None recorded. Lab None recorded. Referral None recorded. Procedures None recorded. Surgeries None recorded. Imaging non-stress test 2024 025 [email or web address] [facility] [address], [place], [address], 11:41:44 Medication Orders valacyclovi r 500 mg tablet 2024 025 [email or web address] 6 [id number], [address], [place], [place], [id number], 23:07:24 Patient TargetsNo targets recorded. Patient InstructionsNo instructions recorded. Reason for Referral None Reported. Results Created Date Observation Date Name Description Value Unit Range Abnormal Flag Note LastModifiedBy Organization Detail LastModifiedTime 08/30/2008/30/2024 HEMOG LOBIN (HGB) HGB 10.0 g/dL (based on docume nted legal sex) 11.6-1 5.4 low Not Available [facility] (Lab) [address], [place], [address], 08/31/2024 11:33:25 08/30/20 24 08/30/2024 HEMAT OCRIT (HCT) HCT 31.7 % (based on docume nted legal sex) 34.0-4 5.0 low Not Available [facility] (Lab) [address], [place], [address], 08/31/2024 11:33:25 08/30/20 24 08/30/2024 GTT - GESTA AUGUSTINE Linh DOMINGO N, ACOG OB glucose, 1 hour screen 90 mg/dL 70-135 Not Available [facility] (Lab) [address], [place], [address], 08/31/2024 11:33:25 08/30/20 24 08/30/2024 LIBIA TIN / IRON / TRANS LIBIA N / TIBC iron 45 ug/dL 40-170 Not Available [facility] (Lab) [address], [place], [address], 08/31/2024 11:33:26 08/30/20 24 08/30/2024 LIBIA TIN / IRON / TRANS LIBIA N / TIBC transferrin 394 mg/dL 200-36 0 high Not Available [facility] (Lab) [address], [place], [address], 08/31/2024 11:33:26 08/30/20 24 08/30/2024 LIBIA TIN / IRON / TRANS LIBIA N / TIBC ferritin 7.9 NG/mL 8.0-25 2.0 low Not Available [facility] (Lab) [address] [place], [address], 08/31/2024 11:33:26 08/30/20 24 08/30/2024 LIBIA TIN / IRON / TRANS LIBIA N / TIBC TIBC 552 ug/dL 250-45 0 high Not Available [facility] (Lab) [address], [place], [address], 08/31/2024 11:33:26 08/30/20 24 08/30/2024 LIBIA TIN / IRON / TRANS LIBIA N / TIBC iron saturation 8 % 20-55 low Not Available [facility] (Lab) [address], [place], [address], 08/31/2024 11:33:26 08/30/20 24 08/30/2024 HIV 1/2 ANTIG EN/AN TIBOD Y, REFLE X CONFI RMATI ON HIV antigen/anti body Nonrea ctive nonrea ctive HIV-1 antig en and HIV-1 /HIV- 2 antib odies were not detec roxane. No labor atory evide nce of HIV infec tion. Not Available [facility] (Lab) [address], [place], [address], 08/31/2024 11:33:26 08/30/20 24 08/30/2024 RPR SCREE N, REFLE X TITER /CONF IRMAT ION RPR screen Nonrea ctive nonrea ctive Not Available [facility] (Lab) [address], [place], [address], 08/31/2024 11:33:27 10/27/19 25 10/27/2024 CULTU RE: GROUP B STREP SCREE N, REFLE X SUSCE PTIBI LITY result report SEE RESULT S BELOW abnormal Test: Cultu re: Group B Strep , Refle x Susce ptibi lity (CDH/ D[facility]/K H/VWH ) Speci men Sourc e: Vagin a/Rec ramona Speci men Type: Vagin al/Re ctal Speci men Date: 025 1519 Resul t Date: 2024 1544 Resul t Statu s: Final resul t Abnor mal: Yes Resul ting Lab: [facility] [address] [facility] [address] Tel: [phone] CULTU RE ----- ----- ----- --- Posit carlos for Strep tococ cus agala ctiae (Grou p B) (Abno rmal) Clind amyci n susce ptibl e, eryth romyc in resis tant. The clind amyci n induc tion test ( D-t est ) is negat carlos, there fore clind amychristina n shoul d be clini valdez effec tive again st this isola te. Not Available [facility] (Lab) [address], [place], [address], 10/31/2024 16:46:44 08/30/20 24 08/30/2024 US, obste tric, follo w-up No observ ation record ed. [place] [address], [place], [address], 09/07/2024 15:05:47 08/30/20 24 08/30/2024 US, obste tric, follo w-up No observ ation record ed. [address] [facility] [address], [address], 09/07/2024 14:59:51 09/19/20 24 09/19/2024 US, salin e infus ed uteru s No observ ation record ed. [address] [facility] [address] [place], [place] [address], [place], [address], 09/21/2024 17:09:16 09/19/20 24 09/19/2024 US, obste tric, follo w-up No observ ation record ed. [place] [address], [place], [address], 09/21/2024 17:07:07 10/03/19 25 10/03/2024 US, obste tric, follo w-up No observ ation record ed. [address] [facility] [address], [address], 10/04/2024 11:09:59 10/03/19 25 10/03/2024 US, obste tric, follo w-up No observ ation record ed. [place] [address], [place], [address], 10/04/2024 11:17:58 10/10/19 25 10/10/2024 US, obste tric, follo w-up No observ ation record ed. [email or web address] [facility] [address] [place] [address], [address], 10/11/2024 09:24:29 10/11/19 25 10/10/2024 US, obste tric, follo w-up No observ ation record ed. [email or web address] [facility] [address] [place] [address], [address], 10/11/2024 11:16:37 10/17/19 25 10/17/2024 US, salin e infus ed uteru s No observ ation record ed. [email or web address] [facility] [address] [place] [address], [address], 10/18/2024 22:07:34 10/18/19 25 10/17/2024 US, obste tric, follo w-up No observ ation record ed. [email or web address] [place] [address], [place], [address], 10/22/2024 22:44:55 10/24/19 25 10/24/2024 US, obste tric, follo w-up No observ ation record ed. [email or web address] [facility] [address] [place] [address], [address], 10/24/2024 16:25:09 10/24/19 25 10/24/2024 US, obste tric, bioph ysica l profi le + non-s tress test No observ ation record ed. [email or web address] [facility] [address] , [place], [address], 10/25/2024 10:40:06 10/25/19 25 10/24/2024 US, obste tric, follo w-up No observ ation record ed. [facility] [address], [place], [address], 10/27/2024 07:39:43 10/27/19 25 10/27/2024 non-s tress test No observ ation record ed. [email or web address] [facility] [address], [place], [address], 10/27/2024 16:25:17 Result Notes None recorded. Problems Name Problem SNOMED Code Status Onset Date Resolution Date Notes Provider Name and Address Organization Details Recorded Time Prediabet es 976698999 Active 2023 MARY CAMPBELL MD [address], [place], [address], [facility] 4 17:19:44 54272588 Active 2023 Cyndee Coleman [facility], [facility] 4 19:05:42 Herpes simplex 83978899 Active valtrex at 36wks Lulú Ram [facility] 4 14:38:56 Herpes simplex 62269832 Active valtrex at 36wks Lulú Ram [facility] 4 14:38:56 Past history of premature delivery 871431917 Active 36wks 3Katelin nieves, [facility] 4 14:41:25 Past history of premature delivery 026392750 Active 36wks 3Katelin nieves, [facility] 4 14:41:25 Placenta circumval gricel 1147268 Active 32 week growth Lulú nieves [facility] 4 14:30:07 Placenta circumval gricel 4128220 Active 32 week growth Lulú Ram null, [facility] 14:30:07 growth restricti on Active EFW 9% antental testing [facility] on Tues[facility] recommend 37wk delivery Lulú Ram null, [facility] 18:41:13 growth restricti on Active EFW 9% antental testing [facility] weekly on Tuesdays [facility] recommend 37wk delivery Lulú Ram null, [facility] 18:41:13 Problem Notes None recorded. Procedures Surgical History Date Name Laterality Status Provider Name and Address Organization Details Recorded Time 02/22/20 24 SIS completed MARY CAMPBELL MD [address], [place], [address], [facility] 02/22/2024 14:59:37 10/22/19 24 Dilation and Curettage completed Mary Anne Foley [facility] 04/11/2024 16:28:40 06/04/20 23 Date of Last Pap Smear completed Jennifer Gaspar [facility] 01/26/2024 09:35:03 06/20/20 20 arm destructive procedure completed Mary Anne Foley [facility] 04/11/2024 16:29:31 Imaging Results Imaging Date Name Status LastModified by Organiz ation Details LastModified Time 08/30/2024 US, obstetric, follow-up completed [facility] [address], [place], [address], 09/07/2024 15:05:47 08/30/2024 US, obstetric, follow-up completed [facility] [address], [place], [address], 09/07/2024 14:59:51 09/19/2024 US, saline infused uterus completed [email or web address] [facility] [address] [place] [address], [address], 09/21/2024 17:09:16 09/19/2024 US, obstetric, follow-up completed [email or web address] [place] [address], [place], [address], 09/21/2024 17:07:07 10/03/2024 US, obstetric, follow-up completed [email or web address] [facility] [address], [address], 10/04/2024 11:09:59 10/03/2024 US, obstetric, follow-up completed [email or web address] [place] [address], [place], [address], 10/04/2024 11:17:58 10/10/2024 US, obstetric, follow-up completed [email or web address] [facility] [address], [address], 10/11/2024 09:24:29 10/10/2024 US, obstetric, follow-up completed [email or web address] [facility] [address], [address], 10/11/2024 11:16:37 10/17/2024 US, saline infused uterus completed [email or web address] [facility] [address], [address], 10/18/2024 22:07:34 10/17/2024 US, obstetric, follow-up completed [email or web address] [place] [address], [place], [address], 10/22/2024 22:44:55 10/24/2024 US, obstetric, follow-up completed [email or web address] [facility] [address], [address], 10/24/2024 16:25:09 10/24/2024 US, obstetric, biophysical profile + non-stress test completed [email or web address] [facility] [address], [place], [address], 10/25/2024 10:40:06 10/24/2024 US, obstetric, follow-up completed [email or web address] [facility] [address] [place], [address], 10/27/2024 07:39:43 10/27/2024 non-stress test completed [email or web address] [facility] [address] [facility] [address], [place], [address], 10/27/2024 16:25:17 Procedure Notes None recorded. Medical [...] Updated DateTime 09/27/2024 156.21 cm 33.5 kg/m2 43901.34 5074 g 103 mm[Hg] 71 mm[Hg] [facility] 5 09:54:28 Date Recorded Body height Body mass index (BMI) Body weight Systolic blood pressure Diastolic blood pressure Provider Name and Address Organization Details Last Updated DateTime 10/11/2024 156.21 cm 33.3 kg/m2 71399.03 g 115 mm[Hg] 76 mm[Hg] [facility] 5 14:13:39 Date Recorded Body height Body mass index (BMI) Body weight Systolic blood pressure Diastolic blood pressure Provider Name and Address Organization Details Last Updated DateTime 10/27/2024 156.21 cm 34.4 kg/m2 60831.59 g 127 mm[Hg] 81 mm[Hg] [facility] 5 15:17:42 Social History Question Answer Notes LastModified by Organizat ion Details LastModified Time Tobacco Smoking Status Current Every Day Smoker Mary Anne nieves, [facility] 04/11/2024 16:28:24 Do You Have An Advance Directive? No Information not available 07/24/2022 What Is Your Level Of Alcohol Consumption? None [email or web address] Information not available 04/11/2024 If You Are [...] Or The Highest Degree You Have Received? [id number] Information not available 07/24/2022 Are There Any [...] Anxious, Or Unable To Sleep At Night)? [id number] Information not available 07/24/2022 Do You Use [...] have difficulty walking or climbing stairs? No [email or web address] Information not available 10/05/2023 Are you able to walk? [email or web address] Information not available 07/24/2022 Are you able to care for yourself? Yes [email or web address] Information not available 10/05/2023 Do you have difficulty dressing or bathing? No [email or web address] Information not available 10/05/2023 What is your [...] SNOMED-CT Code Diagnosis ICD10 Code Diagnosis Note [id number] Karen Queen , [facility] [address] [address] 07/24/2022 14:19:51 07/24/2022 14:55:54 Sexually transmitted infectious disease 8906910 A64 STD screen updated. Vaginitis 88877982 N76.0 Suspect BV/YeastRx sentSTD screen sent per request Counseled on medication R/B's, Most common side effects, & use. All questions were answered to patient satisfacti on. Hx reviewed & updated Time spent in visit is a total of 30 mins with at least 50% of visit consisting of counseling and review of plan of care. [id number] [facility] [address],[place] [address] 08/31/2022 12:26:39 08/31/2022 13:01:57 Labial cyst 497755692 N90.7 Today we reviewed HSV vs Folliculit [...] counseling and review of plan of care. [id number] MARY CAMPBELL MD [facility] [address],[place] [address] 06/04/2023 15:59:50 06/07/2023 16:18:19 Gynecologic examination 39625430 Z01.419 [facility] woman care- Cervical cancer screening: Pap smear obtained today, will follow up on the results with the patient as they become available- HPV immunizati on: has not received, discussed and recommende d today- STD testing: received- hereditary cancer screening: does not qualify for testing [facility] ion care management 117239730 Z30.9 - patient desires BCPs, will give sample of Slynd today- discussed smoking cessation prior to starting estrogen containing pills [id number] MARY CAMPBELL MD [facility] [address],[place] [address] 07/05/2023 16:24:45 07/06/2023 08:55:12 Pain in pelvis 17893500 R10.2 - pain started 06/24 with ovulation- patient concerned as pain and other symptoms are similar to ectopic - UPT negative in office- low suspicion for ectopic - likely / mittelschm ertz vs MSK vs GI illness- pelvic US to r/o ovarian cysts [id number] [facility] [address],[place] [address] 09/10/2023 16:26:51 09/12/2023 09:20:20 Past history of ectopic 631141681 Z87.59 Z3A.01 [id number] [facility] [address],[place] [address] 09/21/2023 16:58:04 09/22/2023 09:47:42 Past history of ectopic 058275455 Z87.59 Z3A.01 [id number] MARY CAMPBELL MD [facility] [address],[place] [address] 10/05/2023 15:35:25 10/12/2023 08:56:05 Missed miscarriage 29657690 O02.1 Z3A.01 - US demonstrat es enlarged YS with GS, no embryo, no cardiac activity- c/w missed miscarriag e- discussed expectant vs medical vs surgical management with patient, who is undecided- returns home on 10/10, will discuss with him and decide at that time- warning signs and return precaution s discussed [id number] Emily Ne[facility] [address],[place] [address] 10/05/2023 15:36:12 10/05/2023 16:16:08 Missed miscarriage 13355607 O02.1 Z3A.01 [id number] MARY CAMPBELL MD [facility] [address],[place] [address] 01/26/2024 09:28:55 01/27/2024 03:54:53 Recurrent miscarriage 634058244 N96 - s/p 2 consecutiv e miscarriag [...] at this time [id number] MARY CAMPBELL MD [facility] [address],[place] [address] 02/22/2024 13:56:25 02/22/2024 15:09:28 Recurrent miscarriage 561303750 N96 - s/p 2 consecutiv e miscarriag es- hx of 1 in 2017- POC from suction D&C shows 92 XXXX- discussed potential causes of recurrent miscarriag es including APLS, thyroid disease, diabetes, structural (polyps, fibroids, mullerian anomalies, scar tissue), abnormal parental karyotypes .- labwork unremarkab le aside from prediabeti c A1c- SIS performed today, will follow up with results as available [id number] [facility] [address],[place] [address] 02/22/2024 13:56:49 02/22/2024 14:57:12 Recurrent miscarriage 259886567 N96 [id number] [facility] [address],[place] [address] 03/24/2024 12:26:47 03/24/2024 13:32:00 History of poor outcome 9325078659 68158 Z87.59 Z3A.01 [facility] [address],[place] [address] 04/11/2024 15:24:38 04/11/2024 16:03:18 MARY CAMPBELL MD [facility] [address],[place] [address] 04/11/2024 15:25:02 04/11/2024 17:19:15 Amenorrhea 69517320 N91.2 Z32.01 1. Exam today within normal limits.2. Ultrasound today confirms GA and viability. EDC 3/5/243. GC/Clamydi a testing done: will f/u as indicated. 4. ACOG guidelines and plan of care for reviewed with patient. All questions answered.5 . Return to office at 12 weeks for new OB visit6. Will need new OB labs with NIPT.7. Genetic screening: desires at 10 weeks, orders given today Venereal d isease screening 277776961 Z11.3 screening 2437 65534 Z36.0 Genetic in vestigation procedure 72436830 Z31.430 [id number] Emily Tran [facility] [address],[place] [address] 05/09/2024 14:29:23 05/09/2024 15:19:46 screening 615416599 Z36.82 Z3A.11 [id number] MARY CAMPBELL MD [facility] [address],[place] [address] 05/09/2024 14:29:45 05/10/2024 09:35:04 Routine care 781231415 Z34.90 Prediabetes 667883508 R7 3.03 - metformin 500mg dialy Gestation period, 11 weeks 24577754 Z3A.11 [id number] Shakila Maria [facility] [address],[place] [address] 05/17/2024 15:33:20 05/18/2024 09:03:43 [id number] Z33.1 [id number] MARY CAMPBELL MD [facility] [address],[place] [address] 06/07/2024 16:27:21 06/07/2024 17:09:26 Routine care 897185582 Z34.90 - continue PNV [id number] [facility] [address],[place] [address] 07/10/2024 10:34:36 07/10/2024 11:41:39 screening for malformation 082986599 Z36.3 Z3A.20 [id number] MARY CAMPBELL MD [facility] [address],[place] [address] 07/10/2024 10:34:58 07/10/2024 12:34:00 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 - growth wnl at anatomy 36%, repeat at 32 weeks Gestation period, 20 weeks 26138362 Z3A.20 - continue PNV [id number] Emily Tran [facility] [address],[place] [address] 08/09/2024 14:03:15 08/09/2024 14:50:15 screening 350986093 Z36.2 O43.112 Z3A.25 [id number] MARY CAMPBELL MD [facility] [address],[place] [address] 08/09/2024 14:03:37 08/09/2024 15:28:03 growth restriction 88027659 O36.5999 Past pregn karan history of premature delivery 003669833 Z87.51 Placenta circumvallata 6876674 O43.119 - growth wnl at anatomy 36%, repeat at 32 weeks Gestation period, 25 weeks 35962195 Z3A.25 [id number] MARY CAMPBELL MD [facility] [address],[place] [address] 08/30/2024 14:01:59 08/30/2024 14:38:08 Gestation period, 28 weeks 48740238 Z3A.28 - GCT and labs today- discussed Tdap Past pregn karan history of premature delivery 132241561 Z87.51 Placenta circumvallata 8391490 O43.119 - growth wnl at anatomy 36%, normal at [facility] today (16%) [id number] MARY CAMPBELL MD [facility] [address],[place] [address] 09/27/2024 09:49:01 10/04/2024 03:15:31 growth restriction 03274400 O36.5999 - following with [facility] Gestation period, 32 weeks 3168978 Z3A.32 - continue PNV [id number] MARY CAMPBELL MD [facility] [address],[place] [address] 10/11/2024 14:09:37 10/12/2024 05:26:59 Herpes simplex 07912518 B00.9 - will start valtrex for suppressio n until delivery grow th restriction 82188186 O36.5999 - following with MFM, testing scheduled- recommend 38 week delivery, will schedule for 11/08 Gestation period, 34 weeks 52920608 Z3A.34 [id number] Jennifer Gaspar [facility] [address] [address] 10/27/2024 14:37:44 10/30/2024 11:41:44 Reduced movement 553744508 O36.8199 [id number] MARY CAMPBELL MD [facility] [address] [address] 10/27/2024 14:38:17 10/27/2024 15:59:32 growth restriction 08489662 O36.5999 - following with MFM, testing scheduled- recommend 37 week delivery, will schedule for 11/01 Herpes simplex 61091969 B00.9 - will start valtrex for suppressio n until delivery Placenta circumvallata 8009376 O43.119 - growth wnl at anatomy 36%, normal at MFM today (16%) Gestation period, 36 weeks 07464138 Z3A.36 - continue PNV- GBS collected [id number] MARY CAMPBELL MD [facility] [address] [address] 11/01/2024 09:15:56 11/01/2024 09:53:18 Health Concerns Section Related Observation LastModified by Organization Detai ls LastModified Time None Recorded Concern Status LastModified by Organization Details LastModified Time None Recorded Advance Directives Directive N: Payers Encounter Date Sequence Insurance Name Policy Number Policy Barba Covered Member ID Barba Member ID Guarantor Name 09/27/2024 1 [facility] ON OR AFTER 03/20/21 (MEDICAID REPLACEMENT - HMO) Marnie Jones [id number] Marnie Jones 10/11/2024 1 [facility] - DOS ON OR AFTER 21 (MEDICAID REPLACEMENT - HMO) Marnie Jones [id number] Marnie Jones 10/27/2024 1 [facility] - DOS ON OR AFTER 21 (MEDICAID REPLACEMENT - HMO) Marnie Jones [id number] Marnie Jones 10/27/2024 1 [facility] ON OR AFTER 03/20/21 (MEDICAID REPLACEMENT - HMO) Marnie Jones [id number] Marnie Jones 11/01/2024 1 [facility] ON OR AFTER 03/20/21 (MEDICAID REPLACEMENT - HMO) Marnie Jones [id number] Marnie Jones OBGyn Episode Ob Episode Information Episode Created Date Number of Fetuses Patient Bloodtype Patient rh Status Prepregnancy Weight lbs Domestic Partner Domestic Partner Phone Father Name Account Solutions Analyst Status 07/24/20 22 1 CLOSED Fetus Data First Name Last Name Admitted to NICU Weight (g) Sex Living Outcome Pediatric Complications Fetus ID Race Codes Race Delivery Type 1360.77 6 F Prematur e 31980 Vaginal Delivery Karri Calculation Initial Karri Date [...] Domestic Partner Domestic Partner Phone Father Name Account Solutions Analyst Status 01/26/20 24 1 CLOSED Fetus Data First Name Last Name Admitted to NICU Weight (g) Sex Living Outcome Pediatric Complications Fetus ID Race Codes Race Delivery Type , Spontane ous 58465 Karri Calculation Initial Karri Date Initial Exam [...] Domestic Partner Domestic Partner Phone Father Name Account Solutions Analyst Status 05/09/20 24 1 A Positive OPEN Fetus Data First Name Last Name Admitted to NICU Weight (g) Sex Living Outcome Pediatric Complications Fetus ID Race Codes Race Delivery Type 96975 Problems Problem Notes -EFW 3% AC <1% S/D Ratio mid ly elevated for GA - MFM referral faxed to Marlene 08/09 - pt request to see [facility] referral sent 08/23 & 08/30 US & OV 1030 09/19 0815 NST & US [facility] 10/02 US & NST 10/24 [facility] recommend 37 week delivery , 2wkly testing , scheduled [facility] schedule NST here on Wednesday or MFM due to abnormal doppler and ac <3% 10/24 report Problem Name Start Date End Date Resolution Snomed Code Not e Placenta circumvallata 8927878 32 week growth us growth restriction 06272664 EFW 9% antental testing [facility] weekly on Tuesdays MFM recommend 37wk delivery Past history of premature delivery 150130401 36wks 3# Herpes simplex 24513426 valtr ex at 36wks Karri Calculation Initial [...] Weight in lbs Pre/Post Dialysis Refused Weight 174.878946467554 BP Diastolic BP Location Tested BP Systolic BP Type 80 127 Fetus Heart Rate Present A 160 Fetus Movement A Yes Comments Patient presents to [facility] care. Doing well, nausea minimal. No [...] Type Weight in lbs Pre/Post Dialysis Refused 168.078545752649 BP Diastolic BP Location Tested BP Systolic [...] Type Weight in lbs Pre/Post Dialysis Refused 171.967379622323 BP Diastolic BP Location Tested BP Systolic [...] Type Weight in lbs Pre/Post Dialysis Refused 174.17636235771 BP Diastolic BP Location Tested BP Systolic BP Type 77 L arm 116 sitting Fetus Heart Rate Present A Present Fetus Movement A Yes Comments Patient c/o heartburn, will try tums and pepcid. Anatomy complete and normal today, however AC 9% with mildly elevated SD ratio on UADs. Will send [facility] referral for further evaluation. Otherwise, doing well. RTC 3 weeks for GCT and labs. Flowsheet Date 08/30/2024 Zamora Score Blood Edema Fundus Height Fundus Units Glucose Ketones Leukocytes Nitrite Labor Signs Protein Cervic Dilation Cervic Effacement Cervic Station neg none Type Weight in lbs Pre/Post Dialysis Refused 175.633993570489 BP Diastolic BP Location Tested BP Systolic BP Type 82 L arm 119 sitting Fetus Heart Rate Present A Present Fetus Movement A Yes Comments Doing well, good movem ent. No cramping or bleeding. US wnl at [facility] today, AC and EFW 16%. UADs [...] Type Weight in lbs Pre/Post Dialysis Refused 180.398293532144 BP Diastolic BP Location Tested BP Systolic BP Type 71 L arm 103 sitting Fetus Heart Rate Present A 145 Fetus Movement A Yes Comments Good movement. [facility] oskar ointment 1/13. Anemia on labs, discussed Fe supplement. Passed GCT. RTC 2 weeks. Flowsheet Date 10/11/2024 Zamora Score Blood Edema Fundus Height Fundus Units Glucose Ketones Leukocytes Nitrite Labor Signs Protein Cervic Dilation Cervic Effacement Cervic Station neg none Type Weight in lbs Pre/Post Dialysis Refused Weight 179.016305464337 BP Diastolic BP Location Tested BP Systolic BP Type 76 L arm 115 sitting Fetus Heart Rate Present A 145 Fetus Movement A Yes Comments Patient c/o of slight nausea , along with Waqas Dillard, cramping the past 3 days. Good movement. Was seen by MFM, FGR at 9%. UADs wnl. Monitoring at [facility]. Recommend 38 week delivery due to [...] Weight in lbs Pre/Post Dialysis Refused Weight 185.201827990862 BP Diastolic BP Location Tested BP Systolic BP Type 81 L arm 127 sitting Fetus Heart Rate Present A 145 Fetus Movement A Yes Comments Patient c/o of slight nausea , Lawrence Dillard. Swelling in feet. Good movement. No bleeding or LOF. Intermittent contractions. [facility] recommends 37 week delivery due to abnormal MCA dopplers and AC <3%. Induction orders sent. GBS collected. NST reactive. Labor precautions reviewed. Flowsheet Date 11/01/2024 Zamora Score Blood Edema Fundus Height Fundus Units Glucose Ketones Leukocytes Nitrite Labor Signs Protein Cervic Dilation Cervic Effacement Cervic Station Type Weight in lbs Pre/Post Dialysis Refused BP Diastolic BP Location Tested BP Systolic BP Type Fetus Heart Rate Present Fetus Movement Comments Menstrual History Last Menstrual Date Menses Monthly [...] Domestic Partner Domestic Partner Phone Father Name Account Solutions Analyst Status 01/26/20 24 1 CLOSED Fetus Data First Name Last Name Admitted to NICU Weight (g) Sex Living Outcome Pediatric Complications Fetus ID Race Codes Race Delivery Type , Spontane ous [id number] Karri Calculation Initial Karri Date Initial Exam [...] Domestic Partner Domestic Partner Phone Father Name Account Solutions Analyst Status 10/05/19 24 1 CLOSED Fetus Data First Name Last Name Admitted to NICU Weight (g) Sex Living Outcome Pediatric Complications Fetus ID Race Codes Race Delivery Type Ectopic [id number] Karri Calculation Initial Karri Date Initial Exam [...] Domestic Partner Domestic Partner Phone Father Name Account Solutions Analyst Status 10/05/19 24 1 CLOSED Fetus Data First Name Last Name Admitted to NICU Weight (g) Sex Living Outcome Pediatric Complications Fetus ID Race Codes Race Delivery Type Ectopic [id number] Karri Calculation Initial Karri Date Initial Exam [...]
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
--- OUTSIDE RECORDS SUMMARY | 2024-11-10 18:38 | XMS_ITS | Patient Health Summary ---
Author Organization [facility] Address [address] [place] [address] Care Team Providers Care Perioperative Nurse Name Role Phone Andres Angela MD Unavailable [phone] nAdres Angela MD Unavailable [phone] Pcp, Carolina Eid Primary Care Provider Unav ailable Note from [facility],non-owned Affiliates and Associated Physician Practices is amultiple site organization consisting of ambulatory clinics and hospital sitesin [place], [place], [place] and [place]. This disclosure is being madepursuant to the Care Everywhere program and may not contain all information available regarding this patient. Last updated 18.[facility] Allergies No known active allergies Medications * [...] Comments Blood Pressure 115/71 10/24/2024 2:25 PM BATCHING OPERATOR Pulse 76 10/24/2024 2:25 PM BATCHING OPERATOR Temperature 37 C (98.6 F) 12/04/2020 10:16 AM CDT Respiratory Rate 18 12/04/2020 10:16 AM CDT Oxygen Saturation 100% 10/03/2024 9:11 AM BATCHING OPERATOR Inhaled Oxygen Concentration - - Weight 79.2 kg (174 lb 9.6 oz) 08/30/2024 11:33 AM BATCHING OPERATOR Height 154.9 cm (5' 1 ) 12/04/2020 10:16 AM CDT Body Mass Index 32.99 12/04/2020 10:16 AM CDT Procedures * BIOPHYSICAL PROFILE W NST(Performed 10/24/2024) Performed for Aversion to food: limiting protein intake, Abnormal ultrasound: dopplers elevated S/d ratio, High-risk in third trimester ([facility]), Previous baby with growth restriction, 37 weeks gestation of ([facility]) * BIOPHYSICAL PROFILE W NST(Performed 10/17/2024) Performed for Encounter for maternal care for suspected poor growth in roman inthird trimester ([facility]), Aversion to food: limiting protein intake, Abnormal ultrasound: dopplers elevated S/d ratio, High-risk in third trimester ([facility]), Encounter for screening ([facility]) * BIOPHYSICAL PROFILE W NST(Performed 10/10/2024) Performed for Encounter for maternal care for suspected poor growth in roman inthird trimester ([facility]), Aversion to food: limiting protein intake, Abnormal ultrasound: dopplers elevated S/d ratio, High-risk in third trimester ([facility]), Encounter for screening ([facility]) * BIOPHYSICAL PROFILE W NST(Performed 10/03/2024) Performed for Encounter for maternal care for suspected poor growth in roman inthird trimester ([facility]), Aversion to food: limiting protein intake, Abnormal ultrasound: dopplers elevated S/d ratio, High-risk in third trimester ([facility]), Encounter for screening ([facility]) * BIOPHYSICAL PROFILE W NST(Performed 09/19/2024) Performed for Encounter for maternal care for suspected poor growth in roman inthird trimester ([facility]), Aversion to food: limiting protein intake, Abnormal ultrasound: dopplers elevated S/d ratio, High-risk in third trimester ([facility]), Encounter for screening ([facility]) * SONOGRAM - COMPLETE(Performed 08/30/2024) Performed for SGA (small for gestational age) ([facility]), Encounter for anatomic survey ([facility]) * US OB LESS 14 WKS W TRANSV W DOPP(Performed 12/04/2020) Performed for Threatened miscarriage ([facility]), Vaginal bleeding in , first trimester ([facility]) [...] supervision of normal first in first trimester ([facility]) * BLOOD GASES CORD ART (ISTAT)(Performed 03/10/2017) [...] mother, third trimester, notapplicable or unspecified fetus ([facility]) * CULTURE URINE(Performed 03/07/2017) Performed for IUGR (intrauterine growth restriction) affecting care of mother, third trimester, notapplicable or unspecified fetus ([facility]) * EKG 12-LEAD(Performed 03/05/2017) Performed for Tachycardia * TSH(Performed 03/05/2017) Performed for IUGR (intrauterine growth restriction) affecting care of mother, third trimester, notapplicable or unspecified fetus ([facility]) * COMPREHENSIVE METABOLIC PANEL(Performed 03/05/2017) Performed for IUGR (intrauterine growth restriction) affecting care of mother, third trimester, notapplicable or unspecified fetus ([facility]) * CBC W AUTO DIFFERENTIAL(Performed 03/05/2017) Performed for IUGR (intrauterine growth restriction) affecting care of mother, third trimester, notapplicable or unspecified fetus ([facility]) * CULTURE STREP B(Performed 03/03/2017) Performed for Encounter for supervision of normal first in first trimester ([facility]) * GLUCOSE PROTEIN KETONE URINE - POINT OF CAR(Performed 03/03/2017) Performed for Encounter for supervision of normal first in first trimester ([facility]) * BIOPHYSICAL PROFILE W NST(Performed 02/26/2017) Performed for Uterine size date discrepancy , third trimester ([facility]) * BIOPHYSICAL PROFILE W NST(Performed 02/24/2017) Performed for Uterine size date discrepancy , third trimester ([facility]) * CHLAMYDIA + GC AMPLIFIED PROBE(Performed 02/24/2017) Performed for Vaginal discharge * GLUCOSE PROTEIN KETONE URINE - POINT OF CAR(Performed 02/24/2017) Performed for Encounter for supervision of normal first in first trimester ([facility]) * BIOPHYSICAL PROFILE W NST(Performed 02/17/2017) Performed for Uterine size date discrepancy , third trimester ([facility]) * GLUCOSE PROTEIN KETONE URINE - POINT OF CAR(Performed 02/17/2017) Performed for Encounter for supervision of normal first in first trimester ([facility]) * BIOPHYSICAL PROFILE W NST(Performed 02/10/2017) Performed for Uterine size date discrepancy , third trimester ([facility]) * SONOGRAM - LIMITED(Performed 02/04/2017) * TYPE + SCREEN PANEL(Performed 02/03/2017) * CBC W AUTO DIFFERENTIAL(Performed 02/03/2017) * COAGULATION PANEL W D-DIMER(Performed 02/03/2017) * BIOPHYSICAL PROFILE W NST(Performed 02/03/2017) Performed for Uterine size date discrepancy , third trimester ([facility]) * URINE MICROSCOPIC ONLY REFLEX TO CULTURE(Performed 01/31/2017) Performed for Encounter for supervision of normal first in first trimester ([facility]) * URINALYSIS REFLEX MICROSCOPIC REFLEX CULTURE(Performed 01/31/2017) Performed for Encounter for supervision of normal first in first trimester ([facility]) * VAS BILATERAL VENOUS DUPLEX LE(Performed 01/26/2017) Performed for SOB (shortness of breath) * XR CHEST 2VW(Performed 01/26/2017) Performed for SOB (shortness of breath) * URINALYSIS REFLEX MICROSCOPIC REFLEX CULTURE(Performed 01/26/2017) Performed for Encounter for supervision of normal first in first trimester ([facility]) * CULTURE URINE(Performed 01/26/2017) Performed for Encounter for supervision of normal first in first trimester ([facility]) * EKG 12-LEAD(Performed 01/26/2017) Performed for SOB (shortness of breath) * SONOGRAM - COMPLETE(Performed 01/25/2017) * GLUCOSE PROTEIN KETONE URINE - POINT OF CAR(Performed 01/25/2017) Performed for Encounter for supervision of normal first in first trimester ([facility]) * RPR(Performed 01/25/2017) Performed for Encounter for supervision of normal first in first trimester ([facility]) * CBC W AUTO DIFFERENTIAL(Performed 01/25/2017) Performed for Encounter for supervision of normal first in first trimester ([facility]) * GLUCOSE CHALLENGE(Performed 01/25/2017) Performed for Encounter for supervision of normal first in first trimester ([facility]) * IMAGING/RADIOLOGY/XRAY RESULTS ORDER(Performed 12/25/2016) * GLUCOSE PROTEIN KETONE URINE - POINT OF CAR(Performed 12/01/2016) Performed for Encounter for supervision of normal first in first trimester ([facility]) * CULTURE URINE(Performed 11/03/2016) Performed for Encounter for supervision of normal first in first trimester ([facility]) * GLUCOSE PROTEIN KETONE URINE - POINT OF CAR(Performed 11/03/2016) Performed for Encounter for supervision of normal first in first trimester ([facility]) * SONOGRAM - COMPLETE(Performed 11/03/2016) Performed for Encounter for supervision of normal first in first trimester ([facility]), Gastroesophageal reflux disease without esophagitis * GLUCOSE PROTEIN KETONE URINE - POINT OF CAR(Performed 10/06/2016) Performed for Encounter for supervision of normal first in first trimester ([facility]) * CBC W AUTO DIFFERENTIAL(Performed 09/04/2016) Performed for Encounter for supervision of normal first in first trimester ([facility]) * TYPE + SCREEN PANEL(Performed 09/04/2016) Performed for Encounter for supervision of normal first in first trimester ([facility]) * RPR(Performed 09/04/2016) Performed for Encounter for supervision of normal first in first trimester ([facility]) * RUBELLA IMMUNE STATUS(Performed 09/04/2016) Performed for Encounter for supervision of normal first in first trimester ([facility]) * HEPATITIS B SURFACE ANTIGEN W RFLX CONFIRMATION(Performed 09/04/2016) Performed for Encounter for supervision of normal first in first trimester ([facility]) * CYSTIC FIBROSIS MUTATION PANEL(Performed 09/04/2016) Performed for Encounter for supervision of normal first in first trimester ([facility]) * URINALYSIS REFLEX TO MICROSCOPIC NO CULTURE(Performed 09/04/2016) Performed for Encounter for supervision of normal first in first trimester ([facility]) * HEMOGLOBIN ELECTROPHORESIS(Performed 09/04/2016) Performed for Encounter for supervision of normal first in first trimester ([facility]) * HIV-1 HIV-2 ANTIBODY + HIV P24 AG PANEL(Performed 09/04/2016) Performed for Encounter for supervision of normal first in first trimester ([facility]) * OBSTETRIC PANEL (BEAKER)(Performed 09/04/2016) Performed for Encounter for supervision of normal first in first trimester ([facility]) * CHLAMYDIA + GC AMPLIFIED PROBE(Performed 09/04/2016) Performed for Encounter for supervision of normal first in first trimester ([facility]) * CULTURE URINE(Performed 09/04/2016) Performed for Encounter for supervision of normal first in first trimester ([facility]) * GLUCOSE PROTEIN KETONE URINE - [...] BIOPHYSICAL PROFILE W NST (10/24/2024 1:59 PM BATCHING OPERATOR) Only the most recent of10 resultswithin the time period is included. Linked Results Indication ======== SGA and mildly reduced UA EDBF Incomplete Anatomy Screen Ectopic x2 History ====== OB History 6. Para 1 [id number] 1. live 2017. Gest. age 36 w [...] 4 lb 10 oz EFW by Hadlock ([id number]) IUGR Growth Overview = Exam date GA [...] at 37 weeks gestation. Coding ====== Procedures 66013: [place] [address]: Biophysical Profile W NST 51294: Umbilical Doppler 26922: MCA Doppler Stackops PACS Anatomical Region Laterality Modality Other 10/24/2024 1:59 PM BATCHING OPERATOR R Reed Leslie MD [facility] ORDERABLES * SONOGRAM - COMPLETE (08/30/2024 10:39 AM BATCHING OPERATOR) Only the most recent of5 resultswithin the time period is included. Linked Results Indication ======== SGA and Mildly Elevated UA Doppler on Outside Scan Ectopic x2 History ====== OB History 6. Para 1 [id number] Lab Tests Test Date Result NIPT Low [...] 2 lb 5 oz EFW by Hadlock ([id number]) Head / Face / Neck Biometry: Cephalic [...] adequately visualized: Heart / Thorax RVOT view. [id number] view. Aortic arch view. Ductal arch view. [...] separate MFM visit note. Coding ====== Procedures 09811: US Preg Uterus Detailed 80971: [facility]mbilical Doppler [facility]Anthem PACS Anatomical Region Laterality Modality Other 08/30/2024 10:3 9 AM BATCHING OPERATOR R Reed Leslie MD [facility] ORDERABLES * US OB LESS14 WK TRANS/TRNSAB/DOP [...] on 12/04/2020 at 1:41 PM Madison Charles APRN-BOX SHOOK PATCHER US ORDERABLES * (ABNORMAL) URINE MICROSCOPIC ONLY REFLEX TO CULTURE (12/04/2020 11:00 AM CDT) Only the most recent of5 resultswithin the time period is included. Reflex Status Culture not indicated 12/04/2020 11:30 AM CDT [facility] RBC UA 3-5 None Seen, 0-2, 3-5 # /hpf 12/04/2020 11:30 AM CDT [facility] WBC UA 0-5 None Seen, 0-5 # /hpf 12/04/2020 11:30 AM CDT [facility] Bacteria UA Trace(A) None Seen 12/04/2020 11:30 AM CDT [facility] Squamous Epithelial Cells 3-5 None Seen, 0-2, 3-5 /hpf 12/04/2020 11:30 AM CDT [facility] Mucus UA 1+ /LPF 12/04/2020 11:30 AM CDT [facility] Urine URINE SPECIMEN OBTAINED BY CLEAN CATCH PROCEDURE / Unknown Collection / Unknown 12/04/2020 11:00 AM CDT 12/04/2020 11:13 AM CDT Narrative [facility] - 12/04/2020 11:30 AM CDT Madison REYNOLDSBOX SHOOK PATCHER LAB - URINALYSIS ORDERABLES [facility] [address] [place] [address] * (ABNORMAL) URINALYSIS REFLEX MICROSCOPIC REFLEX CULTURE (12/04/2020 11:00 AM CDT) Only the most recent of9 resultswithin the time period is included. Color UA Yellow Straw, Yellow 12/04/2020 11:22 AM CDT [facility] Clarity UA Cloudy(A) Clear 12/04/2020 11:22 AM CDT [facility] Glucose UA Negative Negative 12/04/2020 11:22 AM CDT [facility] Bilirubin UA Negative Negative 12/04/2020 11:22 AM CDT [facility] Ketone UA Negative Negative 12/04/2020 11:22 AM CDT [facility] Specific [place] UA 1.012 1.005 - 1.030 12/04/2020 11:22 AM CDT [facility] Blood UA 3+(A) Negative 12/04/2020 11:22 AM CDT [facility] pH UA 7.0 5.0 - 8.0 pH 12/04/2020 11:22 AM CDT [facility] Protein UA Negative Negative 12/04/2020 11:22 AM CDT [facility] Urobilinogen UA Negative Negative mg/dL 12/04/2020 11:22 AM CDT [facility] Nitrite UA Negative Negative 12/04/2020 11:22 AM CDT [facility] Leukocyte UA Negative Negative 12/04/2020 11:22 AM CDT [facility] Urine Microscopy Urine microscopy to follow 12/04/2020 11:22 AM CDT [facility] Reflex Status Culture not indicated 12/04/2020 11:22 AM CDT [facility] Urine URINE SPECIMEN OBTAINED BY CLEAN CATCH PROCEDURE / Unknown Collection / Unknown 12/04/2020 11:00 AM CDT 12/04/2020 11:13 AM CDT Narrative [facility] - 12/04/2020 11:22 AM CDT Madison BRANDT LAB - URINALYSIS ORDERABLES [facility] [address] [place] [address] * TYPE + SCREEN PANEL (12/04/2020 11:00 AM CDT) Only the most recent of4 resultswithin the time period is included. ABO Rh A POS 12/04/2020 11:55 AM CDT [facility] Comment:History checked. Antibody Screen NEG 11:55 AM CDT [facility] Blood Bank BLOOD SPECIMEN / Unknown Venipuncture / Unknown 12/04/2020 11:00 AM CDT 12/04/2020 11:14 AM CDT Madison BRANDT LAB - BLOOD BANK ORDERABLES [facility] [address] [phone] * (ABNORMAL) CBC W AUTO DIFFERENTIAL (12/04/2020 11:00 AM CDT) Only the most recent of11 resultswithin the time period is included. WBC 7.6 4.4 - 10.7 x10E9/L 12/04/2020 11:24 AM CDT [facility] WBC Corrected 12/04/2020 11:24 AM CDT [facility] RBC 4.58 3.80 - 5.20 x10E12/L 12/04/2020 11:24 AM CDT [facility] Hemoglobin 10.0(L) 12.0 - 15.6 gm/dL 12/04/2020 11:24 AM CDT [facility] Hematocrit 33.3(L) 35.9 - 45.5 % 12/04/2020 11:24 AM CDT [facility] MCV 72.7(L) 80.7 - 98.3 fl 12/04/2020 11:24 AM CDT [facility] MCH 21.8(L) 26.7 - 34.0 pg 12/04/2020 11:24 AM CDT [facility] MCHC 30.0(L) 30.8 - 35.9 gm/dL 12/04/2020 11:24 AM CDT [facility] Platelet Count 431(H) 153 - 416 x10E9/L 12/04/2020 11:24 AM CDT [facility] RDW-CV 18.9(H) 12.1 - 14.9 % 12/04/2020 11:24 AM CDT [facility] MPV 10.3 9.4 - 12.9 fl 12/04/2020 11:24 AM CDT [facility] Neutrophils % 54.7 44.0 - 73.0 % 12/04/2020 11:24 AM CDT [facility] Lymphocytes % 36.8 20.0 - 43.0 % 12/04/2020 11:24 AM CDT [facility] Monocytes % 6.1 5.0 - 13.0 % 12/04/2020 11:24 AM CDT [facility] Eosinophils % 1.7 0.0 - 6.0 % 12/04/2020 11:24 AM CDT [facility] Basophils % 0.4 0.0 - 2.0 % 12/04/2020 11:24 AM CDT [facility] Immature Granulocytes 0.3 0 - 1 % 12/04/2020 11:24 AM CDT [facility] Neutrophil Absolute 4.14 2.01 - 7.14 x10E9/L 12/04/2020 11:24 AM CDT [facility] Lymphocytes Absolute 2.78 1.07 - 3.94 x10E9/L 12/04/2020 11:24 AM CDT [facility] Monocytes Absolute 0.46 0.26 - 1.07 x10E9/L 12/04/2020 11:24 AM CDT [facility] Eosinophils Absolute 0.13 0 - 0.47 x10E9/L 12/04/2020 11:24 AM CDT [facility] Basophils Absolute 0.03 0 - 0.08 x10E9/L 12/04/2020 11:24 AM CDT [facility] Immature Granulocytes Absolute 0.02 0.00 - 0.06 x10E9/L 12/04/2020 11:24 AM CDT [facility] nRBC Auto 0 /100 WBC 12/04/2020 11:24 AM CDT [facility] Blood BLOOD SPECIMEN / Unknown Venipuncture / Unknown 12/04/2020 11:00 AM CDT 12/04/2020 11:14 AM CDT Madison Charles APRN-BOX SHOOK PATCHER LAB - HEMATOLOGY ORDERABLES Performing Organization Address City/State/[facility] Co de Phone Number [facility] [address] [place] [address] * (ABNORMAL) COMPREHENSIVE METABOLIC PANEL (12/04/2020 11:00 AM CDT) Only the most recent of7 resultswithin the time period is included. [facility] Glucose 91 70 - 105 mg/dL 12/04/2020 11:34 AM CDT [facility] Sodium 138 136 - 145 mmol/L 12/04/2020 11:34 AM CDT [facility] Potassium 4.0 3.5 - [...] CDT 12/04/2020 11:14 AM CDT Madison Charles CYLINDER DYER-BOX SHOOK PATCHER LAB - CHEMISTRY O RDERABLES [facility] [address] [place] [address] * HCG BETA BLOOD QUANTITATIVE (12/04/2020 11:00 AM CDT) Only the most recent of2 resultswithin the time period is included. hCG Quantitative 6.56 mIU/mL 12/05/19 11:41 AM CDT [facility] Blood BLOOD SPECIMEN / Unknown Venipuncture / Unknown 12/04/2020 11:00 AM CDT 12/04/2020 11:14 AM CDT Narrative [facility] - 12/04/2020 11:41 AM [...] FSH >20 IU/L makes unlikely. Madison Charles APRN-BOX SHOOK PATCHER LAB - CHEMISTRY O RDERABLES Performing Organization Address [facility] Co de Phone Number [facility] [address] [place] [address] * CARDIAC EKG ORDER (08/09/2019 8:11 PM BATCHING OPERATOR) Only the most recent of2 resultswithin the time period is included. Narrative 08/09/2019 8:11 PM BATCHING OPERATOR Ordered by an unspecified provider. Scanned Document CARDIAC SERVICES ORD ERABLES * CT THORAX ABDOMEN PELVIS W CONT (08/07/2019 8:18 PM BATCHING OPERATOR) Anatomical Region Laterality Modality Chest, Abdomen, Pelvis Computed Tomography 08/07/2019 8:30 PM BATCHING OPERATOR Impressions 08/07/2019 8:37 PM BATCHING OPERATOR No acute findings in the chest and abdomen. A trace of free fluid is visible in the pelvis in association with a 1.2 cm left adnexal cyst. Please see above for other findings. Reading Radiologist: Vincent Brooks MD on 08/07/2019 at 8:37 PM Narrative 08/07/2019 8:[address] CHEST, ABDOMEN AND PELVIS INDICATION: Back [...] 08/07/2019 at 8:37 PM Cortez Thuc Hang CYLINDER DYER-BOX SHOOK PATCHER CT ORDERABLES * CT CERVICAL SPINE NON CONTRAST (08/07/2019 7:54 PM BATCHING OPERATOR) Anatomical Region Laterality Modality Spine Computed Tomogra phy 08/07/2019 8:42 PM BATCHING OPERATOR Impressions 08/07/2019 8:43 PM BATCHING OPERATOR No fracture can be identified. Please see above. Reading Radiologist: Vincent Brooks MD on 08/07/2019 at 8:43 PM Narrative 08/07/2019 8:43 PM BATCHING OPERATOR Examination: CT Cervical Spine, without contrast. Information [...] grammatical or syntax problems by a trained certified medical dosimetrist. For questions about the report, please contact [...] grammatical or syntax problems by a trained certified medical dosimetrist. For questions about the report, please contact the Radiology Department. IMPRESSION No fracture can be identified. Please see above. Reading Radiologist: Vincent Brooks MD on 08/07/2019 at 8:43 PM Cortez Thuc Hang CYLINDER DYER-BOX SHOOK PATCHER CT ORDERABLES * CT HEAD NON CONTRAST (08/07/2019 7:53 PM BATCHING OPERATOR) Only the most recent of2 resultswithin the time period is included. Anatomical Region Laterality Modality Head Computed Tomogra phy 08/07/2019 8:23 PM BATCHING OPERATOR Impressions 08/07/2019 8:24 PM BATCHING OPERATOR No acute findings in the brain. Noncontrast brain CT. Please see above. Reading Radiologist: Vincent Brooks MD on 08/07/2019 at 8:24 PM Narrative 08/07/2019 8:24 PM BATCHING OPERATOR EXAMINATION: CT BRAIN WITHOUT CONTRAST. Information from [...] grammatical or syntax problems by a trained certified medical dosimetrist. Findings: There is no intracranial mass-effect or [...] grammatical or syntax problems by a trained certified medical dosimetrist. Findings: There is no intracranial mass-effect or [...] brain CT. Please see above. Reading Radiologist: Vicnent Brooks MD on 08/07/2019 at 8:24 PM Cortez Thuc Hang CYLINDER DYER-BOX SHOOK PATCHER CT ORDERABLES * EKG 12-LEAD (08/07/2019 6:37 PM BATCHING OPERATOR) Only the most recent of6 resultswithin the time period is included. Ventricular Rate 83 BPM [facility] Atrial Rate 83 BPM [facility] P-R Interval 150 ms [facility] QRS Duration ms 82 ms [facility] Q-T Interval ms 366 ms [facility] QTC Calculation (Bezet) 430 ms [facility]USE Calculated P [place] 58 degrees [facility] Calculated R [place] 14 degrees [facility] Calculated T [place] 3 degrees [facility] Interpretation EKG Sinus rhythm with Premature atrial complexes with Aberrant conduction Otherwise normal ECG No previous ECGs available Confirmed by RADHA SAAVEDRA MD ([id number]) on 08/10/2019 9:02:54 AM [facility] MUSE 08/07/2019 6:37 PM BATCHING OPERATOR 08/10/2019 9:02 AM [facility] Reed Eng MD ECG ORDERABLES [facility] MUSE * (ABNORMAL) DRUG SCREEN TOX LIMITED BLD PNL 3 INHOUSE (08/07/2019 6:08 PM BATCHING OPERATOR) Only the most recent of2 resultswithin the time period is included. Pathologist [facility] Acetaminophen <3.0(L) 10.0 - 30.0 ug/mL 08/07/2019 7:21 PM BATCHING OPERATOR [facility] Ethanol <10.0 <10 mg/dL 08/07/2019 7:21 PM [facility] Salicylate <5.0(L) 15.0-<30.0 mg/dL 08/07/2019 7:21 PM [facility] Blood BLOOD SPECIMEN / Unknown Venipuncture / Unknown 08/07/2019 6:08 PM BATCHING OPERATOR 08/07/2019 6:11 PM BATCHING OPERATOR Narrative [facility] - 08/07/2019 7:21 PM [...] may alter the peak level. Contact the [facility] at or reserved for healthcare professionals to assist you in evaluating potentially toxic acetaminophen levels. Reed Eng MD LAB - CHEMISTRY SANGITA ARAIZA Performing Organization Address City/[facility] Co de Phone Number [facility] [address] [place] [address] * PTT (08/07/2019 6:08 PM BATCHING OPERATOR) PTT 29.3 23.0 - 38.4 sec 08/07/2019 6:29 PM [facility] Blood BLOOD SPECIMEN / Unknown Venipuncture / Unknown 08/07/2019 6:08 PM BATCHING OPERATOR 08/07/2019 6:11 PM BATCHING OPERATOR Narrative [facility] - 08/07/2019 6:29 PM BATCHING OPERATOR Heparin Therapeutic Range for PTT: 71.0 - 109.0 seconds. Diego BRANDT LAB - COAGULATIO N ORDERABLES Performing Organization Address [facility] Co de Phone Number [facility] [address] [place] [address] * (ABNORMAL) PT-INR (08/07/2019 6:08 PM BATCHING OPERATOR) PT 14.3 12.1 - 14.8 sec 08/07/2019 6:29 PM BATCHING OPERATOR [facility] INR 1.2(H) 0.9 - 1.1 08/07/2019 6:29 PM BATCHING OPERATOR [facility] Blood BLOOD SPECIMEN / Unknown Venipuncture / Unknown 08/07/2019 6:08 PM BATCHING OPERATOR 08/07/2019 6:11 PM BATCHING OPERATOR Narrative [facility] - 08/07/2019 6:29 PM BATCHING OPERATOR Conventional Warfarin Anticoagulant Therapy: INR Reference Range: 2.0-3.0 Intensive Warfarin Anticoagulant Therapy: INR Reference Range: 2.5-3.5 Diego BRANDT LAB - COAGULATIO N ORDERABLES Performing Organization Address City/[facility]/ZIP Co de Phone Number [facility] [address] [place] [address] * LIPASE BLOOD (08/07/2019 6:08 PM BATCHING OPERATOR) Only the most recent of3 resultswithin the time period is included. Lipase 26 8 - 78 U/L 08/07/2019 6:32 PM BATCHING OPERATOR [facility] Blood BLOOD SPECIMEN / Unknown Venipuncture / Unknown 08/07/2019 6:08 PM BATCHING OPERATOR 08/07/2019 6:11 PM BATCHING OPERATOR Diego BRANDT LAB - CHEMISTRY ORDERABLES Performing Organization Address [facility] Co de Phone Number [facility] [id number] [place] [address] * XR CERVICAL SPINE 2 OR 3 VWS (08/07/2019 1:24 PM BATCHING OPERATOR) Anatomical Region Laterality Modality Spine Radiographic Karen ging 08/07/2019 1:30 PM BATCHING OPERATOR Narrative 08/07/2019 1:30 PM BATCHING OPERATOR Cervical spine Indication for examination: Trauma with [...] SPINE 2 OR 3VW (08/07/2019 1:23 PM BATCHING OPERATOR) Anatomical Region Laterality Modality Spine Radiographic Karen ging 08/07/2019 1:30 PM BATCHING OPERATOR Narrative 08/07/2019 1:31 PM BATCHING OPERATOR Lumbar spine Indication for examination: Trauma with [...] * HCG URINE QUALITATIVE (08/07/2019 11:56 AM BATCHING OPERATOR) Pathologist [facility] hCG Qualitative Urine Negative Negative 08/07/2019 12:09 PM BATCHING OPERATOR [facility] Urine URINE / Unknown Collection / Unknown 08/07/2019 11:56 AM BATCHING OPERATOR 08/07/2019 12:02 PM BATCHING OPERATOR Reed Eng MD LAB - URINALYSIS ORD ERABLES [facility] [address] [place] [address] * (ABNORMAL) DRUG SCREEN TOX URINE PANEL (08/07/2019 11:56 AM BATCHING OPERATOR) Only the most recent of4 resultswithin the time period is included. Amphetamines Screen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 A455E R553X 1078delT 3849+10kbC to T OnwgyI508 R560T 1717-1G to A 3876delA GewzbN747 S4051M 1898+1G to A 3905insT METHODS/LIMITATIONS: DNA is isolated from the sample and tested for the 32 CF mutations on the [place] Array Platform ([employer]). Regions of the CFTR gene are amplified enzymatically and subjected to a solution-phase multiplex allele-specific primer extension with subsequent hybridization to a bead array and fluorescence detection. Polymorphisms F508C, I506V and I507V are included in this panel to rule out false positive [id number] homozygotes. Reflex testing of 5T is included in the panel for R117H interpretation. False positive or negative results may occur for reasons that include genetic variants, blood transfusions, bone marrow transplantation, erroneous representation of family relationships or contamination of a sample with maternal cells. REFERENCES: 1. Updates on Carrier Screening for Cystic Fibrosis. (2011) Am J Ob Gynecol 117(4):3708-0161 2. Errol et al. (2004) Shanthi Med 6:387-91 3. Chalo et al. (2002) Shanthi Med 4:379-391 4. Preconception and carrier screening for cystic fibrosis: (2001)ACOG.ACMG publication Results Released By: Vasile Pedersen, Ph.D., Retort Cooler Released By: Vasile Pedersen, Ph.D., Director Comment Comment 09/15/2016 1:08 PM BATCHING OPERATOR [facility] ([facility]) Comment: The assay provides information intended [...] Unknown Venipuncture / Unknown 09/04/2016 11:20 AM BATCHING OPERATOR 09/04/2016 11:43 AM BATCHING OPERATOR Narrative [facility] ([facility]) - 09/15/2016 1:08 PM BATCHING OPERATOR Performed at: [address] [place] [address] [id number] Grading Supervisor: Adeola Granados MD, Phone: [phone] Ignacia Roca MD LAB - HEMATOLOGY ORDERABLES [facility] ([facility]) [address] [place] [address] * LAB RESULTS ORDER (08/03/2013 3:05 AM BATCHING OPERATOR) Narrative 08/03/2013 3:05 AM BATCHING OPERATOR Ordered by an unspecified provider. Transcriptions Document, Scanned - 08/03/2013 3:05 AM CST Scanned Document LAB - THERAPEUTIC DR CARTAGENA MONITORING ORDERABLES * HCG URINE QUALITATIVE - POCT (IP) TANIA (12/04/2012 4:24 PM CDT) HCG Qual Urine Negative Negative [facility] QC Verified Yes Yes [facility] PO CT TESTING Urine specimen (specimen) URINE / Unknown 12/04/2012 4:24 PM CDT Emmy Mccoy APRN-BOX SHOOK PATCHER LAB - POINT OF CAR E ORDERABLES Performing Organization Address [facility] Co de Phone Number [facility] [address] [place] [address] * (ABNORMAL) URINALYSIS MICROSCOPIC ONLY (12/04/2012 4:19 PM CDT) RBC UA >100(A) 0-2, 2-5 # /hpf 12/04/2012 4:51 PM CDT [facility] WBC UA 5-10(A) 0-2, 2-5 # /hpf 12/04/2012 4:51 PM CDT [facility] Bacteria UA Trace None Seen, Trace 12/04/2012 4:51 PM CDT [facility] Epithelial Cell UA 2-5 0-2, 2-5 12/04/2012 4:51 PM CDT [facility] Mucus UA 1+ (none) 12/04/2012 4:51 PM CDT [facility] Urine specimen (specimen) URINE SPECIMEN OBTAINED BY CLEAN CATCH PROCEDURE / Unknown 12/04/2012 4:19 PM CDT 12/04/2012 4:28 PM CDT Emmy Darius STAUFFER-BOX SHOOK PATCHER LAB - URINALYSIS O RDERABLES Performing Organization Address [facility] Co de Phone Number [facility] [address] [place] [address] Care Teams Perioperative Nurse Relationship Specialty Start Date End Date PcpCarolina PCP - General 04/16/23 Andres Angela MD Psychiatry 12/16/18 Andres Angela MD Psychiatry 11/16/19
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
[2024-11-10 18:41] VITALS: BP 122/84; PULSE 112; RESP 16; TEMP 36.6; O2SAT 100
[2024-11-10 20:25] LABS: BEDSIDEPREGUCG Negative (Negative)
--- NOTE | 2024-11-10 20:30 | PC.NURSE ---
Per ERP patient may show positive on test due to recent vaginal delivery, no not needed to perform one. Patient did state she is .
--- OUTSIDE RECORDS SUMMARY | 2024-11-10 20:33 | XMS_ITS | Encounter Summary ---
Author Organization [facility] Address [address] [place] [address] Care Team Providers Care Cage Fighter Name Role Phone Unavailable Primary Care Provider [...]
--- OUTSIDE RECORDS SUMMARY | 2024-11-10 20:33 | XMS_ITS | Clinical Summary ---
Author Organization [facility] Address [address] [place] [address] Phone Care Team Providers Care Dairy Frozen Manager Name Role Phone Unavailable Primary Care [...] STL ABSTRACTION Provider, Abstract 08/23/2024 10:00 AM MOLDER FITTING - 08/23/2024 11:59 PM MOLDER FITTING Hospital Encounter [facility] Maternal and Ground Floor S [facility] [address] [place] [address] Sheila Chang MD Discharge Disposition: Home or Self Care 08/22/2024 External Device Data STL ABSTRACTION Provider, Abstract 08/16/2024 2:45 PM MOLDER FITTING Initial [facility] Maternal and Medicine [place] [address] [facility] [address] [place] [address] Sheila Chang MD Poor growth affecting management of mother in second trimester, single or unspecified fetus (Primary Dx); 26 weeks gestation of 08/16/2024 1:30 PM MOLDER FITTING - 08/16/2024 11:59 PM MOLDER FITTING Hospital Encounter [facility] Maternal and Ground Floor S [facility] [address] [place] [phone] Mary Campbell MD Discharge Disposition: Home or Self Care 08/10/2024 Orders Only [facility] Maternal and Ground Floor S [facility] [address] [facility] [place] [address] Mary Campbell MD Poor growth [...] Comments Blood Pressure 113/66 08/16/2024 3:27 PM MOLDER FITTING Pulse 90 08/16/2024 3:27 PM MOLDER FITTING Temperature - - Respiratory Rate - - Oxygen Saturation - - Inhaled Oxygen Concentration - - Weight 79.4 kg (175 lb) 08/16/2024 3:27 PM MOLDER FITTING Height 154.9 cm (5' 1 ) 08/16/2024 3:27 PM MOLDER FITTING Body Mass Index 33.07 08/16/2024 3:27 PM MOLDER FITTING Plan of Treatment Health Maintenance Due Date [...] LTD+UMB ART DOPPLER Routine 08/23/2024 10:31 AM MOLDER FITTING Poor growth affecting management of mother in second trimester, fetus 1 of multiple gestation US OB DETAIL SINGLE GEST Routine 08/16/2024 2:58 PM MOLDER FITTING Abnormal head circumference in relation to growth and age standard from Last 3 Months Results * US OB LTD+UMB ART DOPPLER (08/23/2024 10:31 AM MOLDER FITTING) Anatomical Region Laterality Modality Pelvis Ultrasound 08/23/2024 11:1 5 AM MOLDER FITTING Narrative 08/23/2024 10:40 AM MOLDER FITTING STL LIMITED ----- Pat. Name: MARNIE JONES Study Date: 08/23/2024 11:15am Pat. NO: [id number] Referring MD: MARY CAMPBELL MD Site: [facility] Roll Operator: Latanya Boss RDMS : 1995 Age: 28 ----- INDICATION ----- Intrauterine Growth Restriction (IUGR) Circumvallate Placenta History of PTL/PTD in Previous , Currently CODING ----- Diagnoses Z3A.27: Weeks of gestation O09.212: Supervision of with history of pre-term labor O43.112: Circumvallate placenta O36.5920: Maternal care for other known or suspected poor growth Procedures 01206: Ultrasound, uterus, real time with image documentation, limited one or more fetuses 70298: Doppler velocimetry, ; umbilical artery 84092: Doppler velocimetry, ; middle cerebral artery METHOD [...] PI 1.91 47% Graciela RI 0.83 67% [facility] PS 40.41 cm/s PS 1.15 MoM ED 6.82 cm/s S / D 5.93 CPR PI 1.26 2% Ebbing GROWTH OVERVIEW ----- Exam date GA BPD (mm) HC (mm) AC (mm) FL (mm) HL (mm) EFW (g) 08/16/2024 26w 0d 65.1 50% 233.7 11% 197.9 7% 49.5 57% 44.8 63% 813 20% COMMENT ----- Patient's name and date of were verified by the outside rigger prior to the exam. IMPRESSION ----- Viable [...] testing and ultrasounds in the center at [facility] if she chooses. Procedure Note Chandler Salas MD - 08/23/2024 ST LIMITED ----- Pat. Name:Pedrito JONES Date:08/23/2024 11:15am Pat. NO: [id number] MD:MARY CAMPBELL [facility]Latanya Boss RDMS :1995Age:28 ----- INDICATION ----- Intrauterine Growth Restriction (IUGR) Circumvallate Placenta History of PTL/PTD in Previous , Currently CODING ----- Diagnoses Z3A.27: Weeks of gestation O09.212: Supervision of with history ofpre-term labor O43.112: Circumvallate placenta O36.5920: Maternal care for other known orsuspected poor growth Procedures 58573: Ultrasound, uterus, real time withimage documentation, limited one or more fetuses 38672: Doppler velocimetry, ; umbilicalartery 66583: Doppler velocimetry, ; middle cerebralartery METHOD ----- Transabdominal ultrasound examination ----- Vora . Number of fetuses: 1 DATING ----- GA by prior [id number] w + 0 d WILLIE by prior [...] and date of were verified by the outside rigger prior tothe exam. IMPRESSION ----- Viable at [...] testing and ultrasounds in the perinatalcenter at [facility] if she chooses. us Sheila Chang MD US ORDERABLES Final Result * US OB DETAIL SINGLE GEST (08/16/2024 2:58 PM MOLDER FITTING) Anatomical Region Laterality Modality Pelvis Ultrasound 08/16/2024 1:58 PM MOLDER FITTING Narrative 08/16/2024 2:56 PM MOLDER FITTING STL COMP ----- Pat. Name: MARNIE JONES Study Date: 08/16/2024 1:58pm Pat. NO: [id number] Referring MD: Site: [facility] Roll Operator: Clair Hicks RDMS : 1995 Age: 28 [...] Z36.3: Encounter for screening for malformations Procedures 00514: Ultrasound, uterus, real time with image documentation, and maternal evaluation plus detailed anatomic examination, transabdominal approach 96312: Doppler velocimetry, ; umbilical artery 65147: Doppler velocimetry, ; middle cerebral artery METHOD [...] 1 lb 13 oz EFW by Hadlock ([id number]) Head / Face / Neck Biometry: Optical Instrument Assembly Supervisor 3.6 mm CM 5.0 mm 14% Nicolaides [...] view. RVOT view. LVOT view. 3-vessel view. 6-fyovcw-vrrcbbi view. Situs. Aortic arch view. Ductal arch view. Superior vena cava. Inferior vena cava. High short axis view. Cardiac rhythm. Diaphragm. Abdomen Stomach. Kidneys. Bladder. Spine Cervical spine. Thoracic spine. Lumbar spine. Sacral spine. Extremities / Arms. Right hand. Left hand. Legs. Right foot. Left foot. Skeleton DOPPLER ----- Umbilical Artery: PI 1.47 97% Reig RI 0.81 96% Regi PS 54.00 cm/s [...] and date of were verified by the outside rigger before the exam IMPRESSION ----- Vora @ [...] Pat. Name:Pedrito JONES Date:08/16/2024 1:58pm Pat. NO: [id number] MD: [facility] Hicks RDMS :1995Age:28 ----- INDICATION ----- Anatomy Survey low risk NIPT Intrauterine Growth Restriction (IUGR) Circumvallate Placenta History of PTL/PTD in Previous , 36 weeks PPROM Currently CODING ----- Diagnoses Z3A.26: Weeks of gestation O09.212: Supervision of with history ofpre-term labor O43.112: Circumvallate placenta O36.5920: Maternal care for other known orsuspected poor growth Z36.3: Encounter for screening formalformations Procedures 54336: Ultrasound, uterus, real time withimage documentation, and maternal evaluation plus detailed anatomic examination,transabdominal approach 39974: Doppler velocimetry, ; umbilicalartery 25395: Doppler velocimetry, ; middle cerebralartery METHOD ----- Transabdominal ultrasound examination ----- Vora . Number of fetuses: 1 DATING ----- Method of dating:based on stated WILLIE GA by prior [id number] w + 0 d WILLIE by prior [...] 1 lb 13 oz EFW by Hadlock ([id number]) Head / Face / Neck Biometry: Optical Instrument Assembly Supervisor 3.6 mm CM 5.0 mm 14%Nicolaides Inner [...] 4-chamber view. RVOT view. LVOT view. 3-vesselview. 4-witpmr-docyfzd view. Situs. Aortic arch view. Ductal arch [...] and date of were verified by the outside rigger beforethe exam IMPRESSION ----- Vora @ 26w [...]
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
--- OUTSIDE RECORDS SUMMARY | 2024-11-10 20:33 | XMS_ITS | Encounter Summary ---
Author Organization [facility] Address [address] [facility] [address] [place] [address] Phone Care Team Providers Care Hydroelectric Station Operator Name Role Phone Brian Velarde DO Primary Care Provider + Encounter Details Date Type Department Care Team (Late st Contact Info) Description 03/03/2021 Orders Only [facility] [phone] Scanning, Provider Social History Tobacco Use Types [...] on file Legal Sex Female 11:21 AM OFFICE MANAGER Gender Identity Not on file Sexual Orientation Not on file 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 Not on file Not on file Not on file documented as of this encounter Plan of Treatment Upcoming Encounters Date Type Department Care Team (Late st Contact Info) Description 11/19/2024 Hospital Encounter [address] [address] Gal Bass MD [address] [facility] [phone] [place] [address] documented as of this encounter Procedures Procedure Name Priority Date/Time Associated Diagnosis Comments SCAN - RADIOLOGY/IMAGING 03/03/2021 documented in this encounter Results * SCAN - RADIOLOGY/IMAGING (03/03/2021) Anatomical Region Laterality Modality Other us Provider Scanning Final Result documented in this encounter Visit Diagnoses Not on filedocumented in this encounter Care Teams Hydroelectric Station Operator Relationship Specialty Start Date End Date Brian Velarde DO [address] [place] [address] PCP - General Family Practice 07/25/20 documented as of this encounter
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
--- OUTSIDE RECORDS SUMMARY | 2024-11-10 20:33 | XMS_ITS | Continuity of Care Document ---
Author Organization [facility] Address [address] [place] [address] Phone Care Team Providers Care Soccer Player Name Role Phone Unavailable Unavailable Unavailable Medications [...] Diagnoses Date Provider Providers Copied on Encounter [facility] , [address], [place], [place], [id number], [place] tel:[phone] [facility] [place] Encounter for dental exam and cleaning w abnormal findings No Information Referring Provider: Farooq Win, [address], [place], [address] . tel:[phone] [facility] , [address], [place], [place], [address], [place] tel:[phone] [facility] [place] Dental caries on smooth surface penetrating into pulp No Information Referring Provider: Farooq Win, [address], [place], [address] . tel:[phone] [facility] , [address], [place], [place], [address], tel:[phone] [facility] [place] Encounter for dental exam and cleaning w abnormal findings No Information [facility] , [facility] [address], [place], [place], [id number], tel:[phone] [facility] [place] Encounter for dental exam and cleaning w abnormal findings No Information Referring Provider: Yoseph Ramon, [address], [place], [address] . tel:[phone] [facility] , [address], [place], [place], [address], tel:[phone] [facility] [place] Encounter for dental exam and cleaning w abnormal findings Antonio Yuen. [address], [place], [place], [address]. tel:[phone] Referring Provider: Wilfrid Alvarez, [address] [address], [place], [address] . tel:[phone] [facility] , [address] [address], [place], [place], [address], tel:[phone] [place] No Information Lawrence Roberson. [address], [id number], . tel:[phone] Family History Family Member Type Diagnosis Age At Onset No Information Payers Payer name Insurance type Covered libertarian ID john dennison(s) D [facility] Community Plan MCAID [id number] Social History Type Description Quantity Date Captured [...]
[2024-11-10 20:34] LABS: Basophils Percent Auto 0.2 % (0.2-1.2); Eosinophils Percent Auto 0.1 % (0-4.4); Hematocrit 39.2 % (37.0-47.0); Hemoglobin 12.3 g/dL (12.0-15.0); Immature Granulocyte Absolute 0.03 K/mm3 (0.00-0.031); Immature Granulocyte Percent A 0.3 % (0-0.5); Lymphocytes Percent Auto 13.6 % (18.3-44.2); Mean Corpuscular HGB Conc 31.4 g/dl (32-36); Mean Corpuscular Hemoglobin 26.1 pg (26-34); Mean Corpuscular Volume 83.1 fl (80-100); Mean Platelet Volume 10.3 fl (7.4-10.4); Monocytes Absolute Auto 0.4 K/mm3 (0.1-0.6); Monocytes Percent Auto 3.5 % (2.6-8.5); Neutrophils Percent Auto 82.3 % (45.5-73.1); Platelet Count Result 419 k/mm3 (150-375); Red Blood Count 4.72 M/mm3 (4.2-5.4); Red Cell Distribution Width 14.8 % (11.5-14.5)
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
--- OUTSIDE RECORDS SUMMARY | 2024-11-10 20:34 | XMS_ITS | Patient Health Summary ---
Author Organization [facility] Address [address] [place] [address] Care Team Providers Care Paint Mixer Hand Name Role Phone Andres Angela MD Unavailable [phone] Andres Angela MD Unavailable [phone] Pcp, Carolina Eid Primary Care Provider Unav ailable Note from [facility],non-owned Affiliates and Associated Physician Practices is amultiple site organization consisting of ambulatory clinics and hospital sitesin [place], [place] and [place]. This disclosure is being madepursuant to the Care Everywhere program and may not contain all information available regarding this patient. Last updated 18.[facility] Allergies No known active allergies Medications * [...] Comments Blood Pressure 115/71 10/24/2024 2:25 PM ELEPHANT KEEPER Pulse 76 10/24/2024 2:25 PM ELEPHANT KEEPER Temperature 37 C (98.6 F) 12/04/2020 10:16 AM CDT Respiratory Rate 18 12/04/2020 10:16 AM CDT Oxygen Saturation 100% 10/03/2024 9:11 AM ELEPHANT KEEPER Inhaled Oxygen Concentration - - Weight 79.2 kg (174 lb 9.6 oz) 08/30/2024 11:33 AM ELEPHANT KEEPER Height 154.9 cm (5' 1 ) 12/04/2020 10:16 AM CDT Body Mass Index 32.99 12/04/2020 10:16 AM CDT Procedures * BIOPHYSICAL PROFILE W NST(Performed 10/24/2024) Performed for Aversion to food: limiting protein intake, Abnormal ultrasound: dopplers elevated S/d ratio, High-risk in third trimester ([facility]), Previous baby with growth restriction, 37 weeks gestation of ([facility]) * BIOPHYSICAL PROFILE W NST(Performed 10/17/2024) Performed for Encounter for maternal care for suspected poor growth in roman inthird trimester ([facility]), Aversion to food: limiting protein intake, Abnormal ultrasound: dopplers elevated S/d ratio, High-risk in third trimester ([facility]), Encounter for screening ([facility]) * BIOPHYSICAL PROFILE W NST(Performed 10/10/2024) Performed for Encounter for maternal care for suspected poor growth in roman inthird trimester ([facility]), Aversion to food: limiting protein intake, Abnormal ultrasound: dopplers elevated S/d ratio, High-risk in third trimester ([facility]), Encounter for screening ([facility]) * BIOPHYSICAL PROFILE W NST(Performed 10/03/2024) Performed for Encounter for maternal care for suspected poor growth in roman inthird trimester ([facility]), Aversion to food: limiting protein intake, Abnormal ultrasound: dopplers elevated S/d ratio, High-risk in third trimester ([facility]), Encounter for screening ([facility]) * BIOPHYSICAL PROFILE W NST(Performed 09/19/2024) Performed for Encounter for maternal care for suspected poor growth in roman inthird trimester ([facility]), Aversion to food: limiting protein intake, Abnormal ultrasound: dopplers elevated S/d ratio, High-risk in third trimester ([facility]), Encounter for screening ([facility]) * SONOGRAM - COMPLETE(Performed 08/30/2024) Performed for SGA (small for gestational age) ([facility]), Encounter for anatomic survey ([facility]) * US OB LESS 14 WKS W TRANSV W DOPP(Performed 12/04/2020) Performed for Threatened miscarriage ([facility]), Vaginal bleeding in , first [...] supervision of normal first in first trimester ([facility]) * BLOOD GASES CORD ART [...] mother, third trimester, notapplicable or unspecified fetus ([facility]) * CULTURE URINE(Performed 03/07/2017) Performed for IUGR (intrauterine growth restriction) affecting care of mother, third trimester, notapplicable or unspecified fetus ([facility]) * EKG 12-LEAD(Performed 03/05/2017) Performed for Tachycardia * TSH(Performed 03/05/2017) Performed for IUGR (intrauterine growth restriction) affecting care of mother, third trimester, notapplicable or unspecified fetus ([facility]) * COMPREHENSIVE METABOLIC PANEL(Performed 03/05/2017) Performed for IUGR (intrauterine growth restriction) affecting care of mother, third trimester, notapplicable or unspecified fetus ([facility]) * CBC W AUTO DIFFERENTIAL(Performed 03/05/2017) Performed for IUGR (intrauterine growth restriction) affecting care of mother, third trimester, notapplicable or unspecified fetus ([facility]) * CULTURE STREP B(Performed 03/03/2017) Performed for Encounter for supervision of normal first in first trimester ([facility]) * GLUCOSE PROTEIN KETONE URINE - POINT OF CAR(Performed 03/03/2017) Performed for Encounter for supervision of normal first in first trimester ([facility]) * BIOPHYSICAL PROFILE W NST(Performed 02/26/2017) Performed for Uterine size date discrepancy , third trimester ([facility]) * BIOPHYSICAL PROFILE W NST(Performed 02/24/2017) Performed for Uterine size date discrepancy , third trimester ([facility]) * CHLAMYDIA + GC AMPLIFIED PROBE(Performed 02/24/2017) Performed for Vaginal discharge * GLUCOSE PROTEIN KETONE URINE - POINT OF CAR(Performed 02/24/2017) Performed for Encounter for supervision of normal first in first trimester ([facility]) * BIOPHYSICAL PROFILE W NST(Performed 02/17/2017) Performed for Uterine size date discrepancy , third trimester ([facility]) * GLUCOSE PROTEIN KETONE URINE - POINT OF CAR(Performed 02/17/2017) Performed for Encounter for supervision of normal first in first trimester ([facility]) * BIOPHYSICAL PROFILE W NST(Performed 02/10/2017) Performed for Uterine size date discrepancy , third trimester ([facility]) * SONOGRAM - LIMITED(Performed 02/04/2017) * TYPE + SCREEN PANEL(Performed 02/03/2017) * CBC W AUTO DIFFERENTIAL(Performed 02/03/2017) * COAGULATION PANEL W D-DIMER(Performed 02/03/2017) * BIOPHYSICAL PROFILE W NST(Performed 02/03/2017) Performed for Uterine size date discrepancy , third trimester ([facility]) * URINE MICROSCOPIC ONLY REFLEX TO CULTURE(Performed 01/31/2017) Performed for Encounter for supervision of normal first in first trimester ([facility]) * URINALYSIS REFLEX MICROSCOPIC REFLEX CULTURE(Performed 01/31/2017) Performed for Encounter for supervision of normal first in first trimester ([facility]) * VAS BILATERAL VENOUS DUPLEX LE(Performed 01/26/2017) Performed for SOB (shortness of breath) * XR CHEST 2VW(Performed 01/26/2017) Performed for SOB (shortness of breath) * URINALYSIS REFLEX MICROSCOPIC REFLEX CULTURE(Performed 01/26/2017) Performed for Encounter for supervision of normal first in first trimester ([facility]) * CULTURE URINE(Performed 01/26/2017) Performed for Encounter for supervision of normal first in first trimester ([facility]) * EKG 12-LEAD(Performed 01/26/2017) Performed for SOB (shortness of breath) * SONOGRAM - COMPLETE(Performed 01/25/2017) * GLUCOSE PROTEIN KETONE URINE - POINT OF CAR(Performed 01/25/2017) Performed for Encounter for supervision of normal first in first trimester ([facility]) * RPR(Performed 01/25/2017) Performed for Encounter for supervision of normal first in first trimester ([facility]) * CBC W AUTO DIFFERENTIAL(Performed 01/25/2017) Performed for Encounter for supervision of normal first in first trimester ([facility]) * GLUCOSE CHALLENGE(Performed 01/25/2017) Performed for Encounter for supervision of normal first in first trimester ([facility]) * IMAGING/RADIOLOGY/XRAY RESULTS ORDER(Performed 12/25/2016) * GLUCOSE PROTEIN KETONE URINE - POINT OF CAR(Performed 12/01/2016) Performed for Encounter for supervision of normal first in first trimester ([facility]) * CULTURE URINE(Performed 11/03/2016) Performed for Encounter for supervision of normal first in first trimester ([facility]) * GLUCOSE PROTEIN KETONE URINE - POINT OF CAR(Performed 11/03/2016) Performed for Encounter for supervision of normal first in first trimester ([facility]) * SONOGRAM - COMPLETE(Performed 11/03/2016) Performed for Encounter for supervision of normal first in first trimester ([facility]), Gastroesophageal reflux disease without esophagitis * GLUCOSE PROTEIN KETONE URINE - POINT OF CAR(Performed 10/06/2016) Performed for Encounter for supervision of normal first in first trimester ([facility]) * CBC W AUTO DIFFERENTIAL(Performed 09/04/2016) Performed for Encounter for supervision of normal first in first trimester ([facility]) * TYPE + SCREEN PANEL(Performed 09/04/2016) Performed for Encounter for supervision of normal first in first trimester ([facility]) * RPR(Performed 09/04/2016) Performed for Encounter for supervision of normal first in first trimester ([facility]) * RUBELLA IMMUNE STATUS(Performed 09/04/2016) Performed for Encounter for supervision of normal first in first trimester ([facility]) * HEPATITIS B SURFACE ANTIGEN W RFLX CONFIRMATION(Performed 09/04/2016) Performed for Encounter for supervision of normal first in first trimester ([facility]) * CYSTIC FIBROSIS MUTATION PANEL(Performed 09/04/2016) Performed for Encounter for supervision of normal first in first trimester ([facility]) * URINALYSIS REFLEX TO MICROSCOPIC NO CULTURE(Performed 09/04/2016) Performed for Encounter for supervision of normal first in first trimester ([facility]) * HEMOGLOBIN ELECTROPHORESIS(Performed 09/04/2016) Performed for Encounter for supervision of normal first in first trimester ([facility]) * HIV-1 HIV-2 ANTIBODY + HIV P24 AG PANEL(Performed 09/04/2016) Performed for Encounter for supervision of normal first in first trimester ([facility]) * OBSTETRIC PANEL (BEAKER)(Performed 09/04/2016) Performed for Encounter for supervision of normal first in first trimester ([facility]) * CHLAMYDIA + GC AMPLIFIED PROBE(Performed 09/04/2016) Performed for Encounter for supervision of normal first in first trimester ([facility]) * CULTURE URINE(Performed 09/04/2016) Performed for Encounter for supervision of normal first in first trimester ([facility]) * GLUCOSE PROTEIN KETONE URINE [...] BIOPHYSICAL PROFILE W NST (10/24/2024 1:59 PM ELEPHANT KEEPER) Only the most recent of10 resultswithin the time period is included. Linked Results Indication ======== SGA and mildly reduced UA EDBF Incomplete Anatomy Screen Ectopic x2 History ====== OB History 6. Para 1 [id number] 1. live 2017. Gest. age 36 w [...] 4 lb 10 oz EFW by Hadlock ([id number]) IUGR Growth Overview = Exam date GA [...] at 37 weeks gestation. Coding ====== Procedures [id number]: [place] [address]: Biophysical Profile W NST 63582: Umbilical Doppler 49833: MCA Doppler [employer] PACS Anatomical Region Laterality Modality Other 10/24/2024 1:59 PM ELEPHANT KEEPER R Reed Leslie MD [facility] ORDERABLES * SONOGRAM - COMPLETE (08/30/2024 10:39 AM ELEPHANT KEEPER) Only the most recent of5 resultswithin the time period is included. Linked Results Indication ======== SGA and Mildly Elevated UA Doppler on Outside Scan Ectopic x2 History ====== OB History 6. Para 1 [id number] Lab Tests Test Date Result NIPT Low [...] 2 lb 5 oz EFW by Hadlock ([id number]) Head / Face / Neck Biometry: Cephalic [...] adequately visualized: Heart / Thorax RVOT view. [id number] view. Aortic arch view. Ductal arch view. [...] separate MFM visit note. Coding ====== Procedures [id number]: US Preg Uterus Detailed 54831: Umbilical Doppler [facility] [employer] PACS Anatomical Region Laterality Modality Other 08/30/2024 10:3 9 AM ELEPHANT KEEPER R Reed Leslie MD [facility] ORDERABLES * US OB LESS14 WK [...] on 12/04/2020 at 1:41 PM Madison Charles APRN-[facility] RESEARCHER US ORDERABLES * (ABNORMAL) URINE MICROSCOPIC ONLY [...] LABORATORY - 12/04/2020 11:30 AM CDT Madison [address] RESEARCHER LAB - URINALYSIS ORDERABLES [facility] [address] [place] [address] * (ABNORMAL) URINALYSIS REFLEX MICROSCOPIC [...] AM CDT [facility] Specific Bud UA 1.012 1.005 - 1.030 12/04/2020 11:22 [...] - URINALYSIS ORDERABLES [facility] [address] [place] [address] * TYPE + SCREEN PANEL [...] BANK ORDERABLES [facility] [address] [phone] * (ABNORMAL) CBC W AUTO DIFFERENTIAL (12/04/2020 [...] CDT 12/04/2020 11:14 AM CDT Madison Charles APRN-[address] RESEARCHER LAB - HEMATOLOGY ORDERABLES Performing Organization Address City/State/[facility] Co de Phone Number [facility] [address] [place] [address] * (ABNORMAL) COMPREHENSIVE METABOLIC PANEL (12/04/2020 11:00 AM CDT) Only the most recent of7 resultswithin the time period is included. [facility] Glucose 91 70 - 105 mg/dL 12/04/2020 [...] CDT 12/04/2020 11:14 AM CDT Madison Charles CELLOPHANE WORKER-[facility] RESEARCHER LAB - CHEMISTRY O RDERABLES [facility] [address] [place] [address] * HCG BETA BLOOD QUANTITATIVE (12/04/2020 11:00 [...] FSH >20 IU/L makes unlikely. Madison Charles APRN-[facility] RESEARCHER LAB - CHEMISTRY O RDERABLES Performing Organization Address [facility] Co de Phone Number [facility] [address] [place] [address] * CARDIAC EKG ORDER (08/09/2019 8:11 PM ELEPHANT KEEPER) Only the most recent of2 resultswithin the time period is included. Narrative 08/09/2019 8:11 PM ELEPHANT KEEPER Ordered by an unspecified provider. Scanned Document CARDIAC SERVICES ORD ERABLES * CT THORAX ABDOMEN PELVIS W CONT (08/07/2019 8:18 PM ELEPHANT KEEPER) Anatomical Region Laterality Modality Chest, Abdomen, Pelvis Computed Tomography 08/07/2019 8:30 PM ELEPHANT KEEPER Impressions 08/07/2019 8:37 PM ELEPHANT KEEPER No acute findings in the chest and abdomen. A trace of free fluid is visible in the pelvis in association with a 1.2 cm left adnexal cyst. Please see above for other findings. Reading Radiologist: Vincent Brooks MD on 08/07/2019 at 8:37 PM Narrative 08/07/2019 8:[address] CHEST, ABDOMEN AND PELVIS INDICATION: Back [...] 08/07/2019 at 8:37 PM Cortez Thuc Hang CELLOPHANE WORKER-FIELD [facility] RESEARCHER CT ORDERABLES * CT CERVICAL SPINE NON CONTRAST (08/07/2019 7:54 PM ELEPHANT KEEPER) Anatomical Region Laterality Modality Spine Computed Tomogra phy 08/07/2019 8:42 PM ELEPHANT KEEPER Impressions 08/07/2019 8:43 PM ELEPHANT KEEPER No fracture can be identified. Please see above. Reading Radiologist: Vincent Brooks MD on 08/07/2019 at 8:43 PM Narrative 08/07/2019 8:43 PM ELEPHANT KEEPER Examination: CT Cervical Spine, without contrast. Information [...] or syntax problems by a trained medical scientist. For questions about the report, please contact [...] or syntax problems by a trained medical scientist. For questions about the report, please contact the Radiology Department. IMPRESSION No fracture can be identified. Please see above. Reading Radiologist: Vincent Brooks MD on 08/07/2019 at 8:43 PM Cortez Thuc Hang CELLOPHANE WORKER-[employer] [facility] RESEARCHER CT ORDERABLES * CT HEAD NON CONTRAST (08/07/2019 7:53 PM ELEPHANT KEEPER) Only the most recent of2 resultswithin the time period is included. Anatomical Region Laterality Modality Head Computed Tomogra phy 08/07/2019 8:23 PM ELEPHANT KEEPER Impressions 08/07/2019 8:24 PM ELEPHANT KEEPER No acute findings in the brain. Noncontrast brain CT. Please see above. Reading Radiologist: Vincent Brooks MD on 08/07/2019 at 8:24 PM Narrative 08/07/2019 8:24 PM ELEPHANT KEEPER EXAMINATION: CT BRAIN WITHOUT CONTRAST. Information from [...] or syntax problems by a trained medical scientist. Findings: There is no intracranial mass-effect or [...] or syntax problems by a trained medical scientist. Findings: There is no intracranial mass-effect or [...] 08/07/2019 at 8:24 PM Cortez Thuc Hang CELLOPHANE WORKER-[facility] RESE[address]ER CT ORDERABLES * EKG 12-LEAD (08/07/2019 6:37 PM ELEPHANT KEEPER) Only the most recent of6 resultswithin the time period is included. Ventricular Rate 83 BPM [facility] Atrial Rate 83 BPM [facility] P-R Interval 150 ms [facility] QRS Duration ms 82 ms [facility] Q-T Interval ms 366 ms [facility] QTC Calculation (Bezet) 430 ms [facility] Calculated P [place] 58 degrees [facility] Calculated R [place] 14 degrees [facility] Calculated T [place] 3 degrees [facility] Interpretation EKG Sinus rhythm with Premature atrial complexes with Aberrant conduction Otherwise normal ECG No previous ECGs available Confirmed by RADHA SAAVEDRA MD ([id number]) on 08/10/2019 9:02:54 AM [facility] 08/07/2019 6:37 PM ELEPHANT KEEPER 08/10/2019 9:02 AM [facility] Reed Eng MD ECG ORDERABLES [facility] * (ABNORMAL) DRUG SCREEN TOX LIMITED BLD PNL 3 INHOUSE (08/07/2019 6:08 PM ELEPHANT KEEPER) Only the most recent of2 resultswithin the time period is included. Pathologist [facility] Acetaminophen <3.0(L) 10.0 - 30.0 ug/mL 08/07/2019 7:21 PM ELEPHANT KEEPER [facility] Ethanol <10.0 <10 mg/dL 08/07/2019 7:21 PM [facility] Salicylate <5.0(L) 15.0-<30.0 mg/dL 08/07/2019 7:21 PM [facility] Blood BLOOD SPECIMEN / Unknown Venipuncture / Unknown 08/07/2019 6:08 PM ELEPHANT KEEPER 08/07/2019 6:11 PM ELEPHANT KEEPER Narrative [facility] - 08/07/2019 7:21 PM [facility] ACETAMINOPHEN COMMENT Critical [...] may alter the peak level. Contact the [place] [facility] at or reserved for healthcare professionals to assist you in evaluating potentially toxic acetaminophen levels. Reed Eng MD LAB - CHEMISTRY SANGITA ARAIZA Performing Organization Address City/[facility] Co de Phone Number [facility] [address] [place] [address] * PTT (08/07/2019 6:08 PM ELEPHANT KEEPER) PTT 29.3 23.0 - 38.4 sec 08/07/2019 6:29 PM [facility] Blood BLOOD SPECIMEN / Unknown Venipuncture / Unknown 08/07/2019 6:08 PM ELEPHANT KEEPER 08/07/2019 6:11 PM ELEPHANT KEEPER Narrative [facility] - 08/07/2019 6:29 PM ELEPHANT KEEPER Heparin Therapeutic Range for PTT: 71.0 - 109.0 seconds. Diego BRANDT LAB - COAGULATIO N ORDERABLES Performing Organization Address [facility] Co de Phone Number [facility] [address] [place] [address] * (ABNORMAL) PT-INR (08/07/2019 6:08 PM ELEPHANT KEEPER) PT 14.3 12.1 - 14.8 sec 08/07/2019 6:29 PM ELEPHANT KEEPER [facility] INR 1.2(H) 0.9 - 1.1 08/07/2019 6:29 PM ELEPHANT KEEPER [facility] Blood BLOOD SPECIMEN / Unknown Venipuncture / Unknown 08/07/2019 6:08 PM ELEPHANT KEEPER 08/07/2019 6:11 PM ELEPHANT KEEPER Narrative [facility] - 08/07/2019 6:29 PM ELEPHANT KEEPER Conventional Warfarin Anticoagulant Therapy: INR Reference Range: 2.0-3.0 Intensive Warfarin Anticoagulant Therapy: INR Reference Range: 2.5-3.5 Diego BRANDT LAB - COAGULATIO N ORDERABLES Performing Organization Address City/[facility]/ZIP Co de Phone Number [facility] [address] [place] [address] * LIPASE BLOOD (08/07/2019 6:08 PM ELEPHANT KEEPER) Only the most recent of3 resultswithin the time period is included. Lipase 26 8 - 78 U/L 08/07/2019 6:32 PM ELEPHANT KEEPER [facility] Blood BLOOD SPECIMEN / Unknown Venipuncture / Unknown 08/07/2019 6:08 PM ELEPHANT KEEPER 08/07/2019 6:11 PM ELEPHANT KEEPER Diego BRANDT LAB - CHEMISTRY ORDERABLES Performing Organization Address [facility] Co de Phone Number [facility] [id number] [place] [phone] * XR CERVICAL SPINE 2 OR 3 VWS (08/07/2019 1:24 PM ELEPHANT KEEPER) Anatomical Region Laterality Modality Spine Radiographic Karen ging 08/07/2019 1:30 PM ELEPHANT KEEPER Narrative 08/07/2019 1:30 PM ELEPHANT KEEPER Cervical spine Indication for examination: Trauma with [...] SPINE 2 OR 3VW (08/07/2019 1:23 PM ELEPHANT KEEPER) Anatomical Region Laterality Modality Spine Radiographic Karen ging 08/07/2019 1:30 PM ELEPHANT KEEPER Narrative 08/07/2019 1:31 PM ELEPHANT KEEPER Lumbar spine Indication for examination: Trauma with [...] * HCG URINE QUALITATIVE (08/07/2019 11:56 AM ELEPHANT KEEPER) Pathologist [facility] hCG Qualitative Urine Negative Negative 08/07/2019 12:09 PM ELEPHANT KEEPER [facility] Urine URINE / Unknown Collection / Unknown 08/07/2019 11:56 AM ELEPHANT KEEPER 08/07/2019 12:02 PM ELEPHANT KEEPER eRed Eng MD LAB - URINALYSIS ORD ERABLES [facility] [address] [place] [address] * (ABNORMAL) DRUG SCREEN TOX URINE PANEL (08/07/2019 11:56 AM ELEPHANT KEEPER) Only the most recent of4 resultswithin the time period is included. Amphetamines Screen Urine Not detected Not detected 08/07/2019 7:22 PM [facility] Barbiturates Screen Urine Not detected Not detected 08/07/2019 7:22 PM [facility] Benzodiazepines Screen Urine Not detected Not detected 08/07/2019 7:22 PM [facility] Cannabinoids Screen Urine Detected(A) Not detected 08/07/2019 7:22 PM [facility] Cocaine Screen Urine Not detected Not detected 08/07/2019 7:22 PM [facility] Fentanyl Urine Not detected Not detected 08/07/2019 7:22 PM [facility] Methadone Screen Urine Not detected Not detected 08/07/2019 7:22 PM [facility] Opiate Screen Urine Not detected Not detected 08/07/2019 7:22 PM [facility] Phencyclidine Screen Urine Not detected Not detected 08/07/2019 7:22 PM [facility] Urine URINE / Unknown Collection / Unknown 08/07/2019 11:56 AM ELEPHANT KEEPER 08/07/2019 12:[address] [facility]ORATORY - 08/07/2019 7:22 PM [facility] This drug screen is [...] CHEMISTR Y ORDERABLES [facility] [address] [place] [address] * HCG URINE QUALITATIVE - [...] pH units Blood UA neg Negative Specific Bud UA POCT 1.025 1.002 - 1.030 Ketone [...] CDT) 03/09/2019 11:4 4 AM CDT Narrative [facility] CARDIOLOGY - 03/09/2019 5:14 PM CDT [address] [address] Transthoracic Echocardiogram 2D, M-mode, Doppler, and Color Doppler Patient: HANNY MURPHY MR number: [id number] Height: 61 in Weight: 184.6 lb BSA: 1.83 m Study date: 09-Mar-2019 : 1995 Age: 23 years Gender: Female Race: Black Marble Setter Helper: Veronika Valladares RDCS Referring Physician: Nate Nelson [...] Procedure Note Dontrell Clifford MD - 03/16/2019 [facility] [address] [place] [address] Transthoracic Echocardiogram 2D, M-mode, Doppler, and Color Doppler Patient: HANNY MURPHY MR number: [id number] Height: 61 in Weight: 184.6 lb BSA: 1.83 m Study date: 09-Mar-2019 : 1995 Age: 23 years Gender: Female Race: Black Marble Setter Helper: Veronika Valladares RDCS Referring Physician: Nate Nelson [...] City/State/[facility] Co de Phone Number [facility] CARDIOLOGY [address] [place] [phone] * (ABNORMAL) TROPONIN I (03/09/2019 3:42 AM CDT) Only the most recent of4 resultswithin the time period is included. Troponin I 0.068(HH) <0.038 ng/mL 03/09/2019 4:25 AM CDT [facility] Blood BLOOD SPECIMEN / Unknown Lab Venipuncture / Unknown 03/09/2019 3:42 AM CDT 03/09/2019 3:46 AM CDT Narrative [facility] - 03/09/2019 4:25 AM CDT [...] - CHEMISTRY OR DERABLES Performing Organization Address [facility]/ZIP Co de Phone Number [facility] [address] [place] [address] * MAGNESIUM BLOOD (03/09/2019 3:42 AM CDT) Only the most recent of2 resultswithin the time period is included. Magnesium 2.2 1.6 - 2.6 mg/dL 03/09/2019 4:14 AM CDT [facility] Blood BLOOD SPECIMEN / Unknown Lab Venipuncture / Unknown 03/09/2019 3:42 AM CDT 03/09/2019 3:46 AM CDT Nate Nelson MD LAB - CHEMISTRY SANGITA ARAIZA Performing Organization Address [facility] Co de Phone Number [facility] [address] [place] [phone] * ED CRITICAL CARE (03/09/2019 1:46 AM [...] See Separate Report 03/09/2019 2:00 AM CDT [facility] Urine URINE / Unknown 03/09/2019 1 2:36 AM CDT 03/09/2019 12:36 AM CDT Danish Desouzaadalgisa DO LAB - URINALYSIS O RDERABLES [facility] [address] [place] [address] * RENAL FUNCTION PANEL (03/09/2019 12:09 AM CDT) [facility] Glucose 98 74 - 106 mg/dL 03/09/2019 12:46 AM CDT [facility] Sodium 138 136 - 145 mmol/L 03/09/2019 12:46 AM CDT [facility] Potassium 4.1 3.5 - 5.1 mmol/L 03/09/2019 12:46 AM CDT [facility] Chloride 105 98 - 107 mmol/L 03/09/2019 12:46 AM CDT [facility] CO2 25 23 - 31 mmol/L 03/09/2019 12:46 AM CDT [facility] Calcium 9.5 8.4 - 10.2 mg/dL 03/09/2019 12:46 AM CDT [facility] Anion Gap 8 8 - 16 mmol/L 03/09/2019 12:46 AM CDT [facility] BUN 7 7 - 18.7 mg/dL 03/09/2019 12:46 AM CDT [facility] Creatinine 0.68 0.55 - 1.02 mg/dL 03/09/2019 12:46 AM CDT [facility] Albumin 3.9 3.5 - 5.2 gm/dL 03/09/2019 12:46 AM CDT [facility] Phosphorus 3.3 2.3 - 4.7 mg/dL 03/09/2019 12:46 AM CDT [facility] eGFR by MDRD >60 >60 mL/min/1.7 3m2 03/09/2019 12:46 AM CDT [facility] eGFR by MDRD >60 >60 mL/min/1.7 3m2 03/09/2019 12:46 AM CDT [facility] Blood BLOOD SPECIMEN / Unknown Lab Venipuncture / Unknown 03/09/2019 12:09 AM CDT 03/09/2019 12:12 AM CDT Narrative [facility] - 03/09/2019 12:46 AM CDT Attention clinician: BUN Reference Range has changed. Nate Nelson MD LAB - CHEMISTRY SANGITA ARAIZA Performing Organization Address [facility] Co de Phone Number [facility] [address] [place] [phone] * TSH (03/09/2019 12:09 AM CDT) Only the most recent of2 resultswithin the time period is included. TSH 0.6880 0.358 - 3.74 uIU/mL 03/09/2019 1:01 AM CDT [facility] Blood BLOOD SPECIMEN / Unknown Lab Venipuncture / Unknown 03/09/2019 12:09

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
[2024-11-10 20:46] LABS: Add Urine Microscopic? YES; Appearance Urine Cloudy (Clear); Bacteria Urine 3+ /hpf; Bilirubin Urine Negative (Negative); Blood Urine 3+ (Negative); Color Urine Yellow (Yellow); Glucose Urine UA Negative (Negative); Ketones Urine Trace mg/dL (Negative); Leukocyte Esterase Ur 3+ LEU/UL (Negative); Need Manual Microscopic Reviewed; Nitrate Urine Negative (Negative); Non Pathogenic Casts 0-2; Protein Urine 1+ mg/dL (Negative); Specific Grav Ur 1.011 (1.001-1.035); Squamous Epithelial Cell Urine Many /hpf (Few); Urobilinogen Urine 0.2 mg/dL (<2.0); WBC Urine 51-100 /hpf (0-3)
[2024-11-10 20:53] LABS: Alanine Aminotransferase 30 U/L (6-35); Albumin Level 3.7 g/dL (3.5-5.1); Alkaline Phosphatase 95 U/L (38-126); Anion Gap 12 mmol/L (4-12); Aspartate Amino Transferase 24 U/L (14-36); Bilirubin,Total 0.5 mg/dL (0.2-1.3); Blood Urea Nitrogen 7 mg/dL (7-17); Carbon Dioxide 21 mmol/L (22-30); Chloride 107 mmol/L (98-107); Estimated CRCL calculation 102 ml/min; Estimated Glomerular Filt Rate > 60; Glucose 89 mg/dL (65-110); Lipase 34 U/L (23-300); Magnesium 1.8 mg/dL (1.6-2.3); Potassium 4.1 mmol/L (3.4-5.0); Sodium 140 mmol/L (137-145)
[2024-11-10] MEDS: SODIUM CHLORIDE 0.9% IV 1,000 ML 999 ML IV CONT (20:55)
--- NOTE | 2024-11-10 21:17 | ED.ABDPAIN ---
HPI - Abdominal Pain General Chief Complaint: Abdominal Pain Stated Complaint: constipation Time Seen by Provider: 11/10/24 20:18 History of Present Illness HPI narrative: Patient is a 28-year-old female who presents to the emergency department this evening complaining of constipation. Patient recently gave on 11/01 and states that she has not had a bowel movement since then which is unusual for her. Patient states that she has tried 1 fleets enema and prune juice with no improvement of her symptoms. She is also complaining of some rectal pain due to straining. She states that she has also taken a stool softener. Denies any nausea or vomiting. Denies any additional symptoms or concerns at this time. Related Data Home Medications ?Medication ?Instructions ?Recorded ?Confirmed ?Last Taken ?Type sumatriptan succinate 50 mg tablet 50 mg PO BID 10/29/23 11/01/24 11/01/24 History valacyclovir 500 mg tablet 500 mg PO Q12H 11/01/24 11/01/24 11/01/24 History Allergies Allergy/AdvReac Type Severity Reaction Status Date / Time No Known Allergies Allergy Verified 11/10/24 20:19 Review of Systems Review of Systems: All systems are reviewed and are negative unless stated otherwise in the HPI. [facility] Past Medical History Medical History Migraines, neuralgic IUP (intrauterine ), incidental Anxiety GERD (gastroesophageal reflux disease) Asthma Ectopic Surgical History Surgical History History of surgery on upper extremity History of dilation and curettage Family History Family History Other Family history non-contributory Social History Social History Years smoked: 15 Smoking status: Never smoker Tobacco type: cigarettes Second hand tobacco smoke exposure: No Alcohol intake: current Drinks per week: 1 Substance use: never Do You Feel Safe in your Home?: Yes Lack of Transportation: No Lack of Food: Never True Current Housing: I Have Housing Concerned About Future Housing: No Difficulty Paying Gas/Electric Bills: No Difficulty Paying for Meds: No Currently Unemployed: No Education: High School Diploma/GED Difficulty w/ Childcare or Family Care: No Spiritual care concerns: No Exam Narrative: General: Alert, awake, afebrile, in no acute distress. HEENT: PERRL, no rhinorrhea, no post nasal drip, oropharynx clear. Neck: Trachea midline, no JVD, no lymphadenopathy. Cardiovascular: Regular rate and rhythm, no murmurs, rubs or gallops, no peripheral edema. Respiratory: Clear to auscultation bilaterally, no tachypnea, no wheezing, no rhonchi, no rubs, no respiratory distress. Abdomen: Soft, mild tenderness in the suprapubic region, nondistended, no rebound, no guarding, no peritoneal signs. Musculoskeletal: No joint swelling or deformity, normal muscle tone. Skin: No rashes or petechia, no signs of infection. Psychiatric: Alert and oriented, normal behavior and judgment for situation. Neurological: Alert and oriented to person, place, and time. Follows all commands. No focal deficits, speech is clear and fluent. Course Vital Signs Vital signs: Vital Signs Temperature 97.8 F 11/10/24 18:41 Pulse Rate 112 H 11/10/24 18:41 Respiratory Rate 16 11/10/24 18:41 Blood Pressure 122/84 11/10/24 18:41 Pulse Oximetry 100 11/10/24 18:41 Oxygen Delivery Room Air 11/10/24 18:41 Temperature 97.8 F 11/10/24 18:41 Pulse Rate 112 H 11/10/24 18:41 Respiratory Rate 16 11/10/24 18:41 Blood Pressure 122/84 11/10/24 18:41 Pulse Oximetry 100 11/10/24 18:41 Oxygen Delivery Room Air 11/10/24 18:41 MDM - Abdominal Pain MDM Narrative Medical decision making narrative: The patient was evaluated by myself in the emergency department. History is obtained from patient who is an independent historian and physical exam was performed. External medical records were reviewed at this time. IV was established and pertinent tests were ordered. Patient was administered 1 L IV fluid bolus with normal saline. Laboratory results obtained revealing white blood cell count of 11, otherwise unremarkable. Urinalysis did reveal urinary tract infection with trace ketones, 3+ blood, 3+ leuk esterases, 51-100 white blood cells and 3+ bacteria. At this time patient was administered 1 g of IV Rocephin. Imaging studies obtained included CT abdomen and pelvis with IV contrast which was independently interpreted by me revealing: IMPRESSION: 1. Stool distends the rectum. 2. Mildly thickened endometrial complex suspicious for retained products of conception. Patient was informed of these findings at bedside. At this time, case was discussed with the on-call OB for Dr. Bass's group, Dr. Leslie at [phone] and he recommended admitting the patient and starting her on IV antibiotics along with magnesium citrate. At this time, patient was administered 300 mg of p.o. Mag citrate, and started on IV antibiotics with doxycycline, Flagyl and Cefotan for her retained products of conception. Differential diagnosis considerations include constipation, bowel obstruction, dehydration, UTI. Comorbidities impacting this visit include none. I have evaluated and discussed social determinants of health with the patient that could potentially impact subsequent diagnosis and treatment plans. On repeat assessment of the patient, reevaluation revealed that the patient is doing well and is in no acute distress. Patient symptoms have improved since she arrived to our emergency department. Repeat vital signs were all reviewed and noted to be stable. Differential diagnosis and treatment plan were discussed with the patient at bedside. Patient agrees with discussion and after shared medical decision making agrees with admission. All questions were answered to the patient's satisfaction. Lab Data 11/10/24 20:22 11/10/24 20:22 Labs: Lab Results 11/10/24 11/10/24 Range/Units 20:22 20:23 WBC 11.0 H (4.5-10.0) K/mm3 RBC 4.72 (4.2-5.4) M/mm3 Hgb 12.3 D (12.0-15.0) g/dL Hct 39.2 (37.0-47.0) % MCV 83.1 (80-100) fl MCH 26.1 (26-34) pg MCHC 31.4 L (32-36) g/dl RDW 14.8 H (11.5-14.5) % Plt Count 419 H (150-375) k/mm3 MPV 10.3 (7.4-10.4) fl Immature Gran % (Auto) 0.3 (0-0.5) % Neut % (Auto) 82.3 H (45.5-73.1) % Lymph % (Auto) 13.6 L (18.3-44.2) % [place] % (Auto) 3.5 (2.6-8.5) % Eos % (Auto) 0.1 (0-4.4) % Baso % (Auto) 0.2 (0.2-1.2) % Lymph # (Auto) 1.50 (0.9-3.2) K/mm3 [place] # (Auto) 0.4 (0.1-0.6) K/mm3 Eos # (Auto) 0.0 (0-0.3) K/mm3 Baso # (Auto) 0.0 (0.0-0.1) K/mm3 Abs Immat Gran (auto) 0.03 (0.00-0.031) K/mm3 Absolute Neuts (auto) 9.0 H (1.3-6.7) K/mm3 Absolute Nucleated RBC 0.000 (0.0-0.012) K/mm3 Nucleated RBC % 0.0 (0.0-0.2) % Sodium 140 (137-145) mmol/L Potassium 4.1 (3.4-5.0) mmol/L Chloride 107 (98-107) mmol/L Carbon Dioxide 21 L (22-30) mmol/L Anion Gap 12 (4-12) mmol/L BUN 7 (7-17) mg/dL Creatinine 0.67 L (0.7-1.0) mg/dL Estim Creat Clear Calc 102 ml/min Estimated GFR > 60 (59 - ) Glucose 89 (65-110) mg/dL Calcium 9.0 (8.4-10.2) mg/dL Magnesium 1.8 (1.6-2.3) mg/dL Total Bilirubin 0.5 (0.2-1.3) mg/dL AST 24 (14-36) U/L ALT 30 (6-35) U/L Alkaline Phosphatase 95 (38-126) U/L Total Protein 8.0 (6.3-8.2) g/dL Albumin 3.7 (3.5-5.1) g/dL Lipase 34 (23-300) U/L Urine Color Yellow (Yellow) Urine Appearance Cloudy H (Clear) Urine pH 6.0 (5.0-9.0) Ur Specific [place] 1.011 (1.001-1.035) Urine Protein 1+ H (Negative) mg/dL Urine Glucose (UA) Negative (Negative) mg/dL Urine Ketones Trace H (Negative) mg/dL Ur Blood (Man) 3+ H (Negative) Urine Nitrate Negative (Negative) Urine Bilirubin Negative (Negative) Urine Urobilinogen 0.2 (<2.0) mg/dL Add Ur Microanalysis Reviewed Leukocyte Esterase Rfl 3+ H (Negative) KAYLEEN/UL Urine RBC 6-10 H (0-2) /hpf Urine WBC 51-100 H (0-3) /hpf Ur Squamous Epith Cells Many H (Few) /hpf Urine Bacteria 3+ H /hpf Urine Casts 0-2 POC Urine HCG, Qual Negative (Negative) Imaging Data Radiologist's impression: ITS Impressions Abdomen/Pelvis CT 11/10/24 21:37 IMPRESSION: 1. Stool distends the rectum. 2. Mildly thickened endometrial complex suspicious for retained products of conception. Discharge Plan Discharge Clinical Impression: Urinary tract infection, Constipation, Retained products of conception Patient Disposition: Still a Patient Condition: Improved Instructions: Urinary Tract Infection in Women (DC) Patient Language: Chinese Prescriptions: New cephalexin 500 mg capsule 500 mg PO Q12H 5 Days Qty: 10 0RF No Action valacyclovir 500 mg tablet 500 mg PO Q12H docusate sodium 100 mg Capsule 100 mg PO BID PRN (Reason: Constipation) Qty: 60 0RF ibuprofen 600 mg Tablet 600 mg PO Q6H PRN (Reason: Cramping) Qty: 30 0RF sumatriptan succinate 50 mg tablet 50 mg PO BID ferrous sulfate 325 mg (65 mg iron) tablet 325 mg PO DAILY Qty: 30 0RF
--- NOTE | 2024-11-10 21:27 | PC.NURSE ---
Patient taken to CT via w/c at this time.
[2024-11-10 22:00] VITALS: BP 138/81; PULSE 93; RESP 18; TEMP 36.6; O2SAT 100
[2024-11-10 22:11] VITALS: BP 124/90; PULSE 67; RESP 20; O2SAT 100
--- NOTE | 2024-11-10 22:13 | PC.NURSE ---
Patient given breast pump upon request.
[2024-11-10] MEDS: metroNIDAZOLE 500 MG/ISO 100ML 500 MG/100 ML BAG 100 MG IVPB (22:19)
[2024-11-10] MEDS: MAGNESIUM CITRATE 300 ML BTL PO (22:19)
[2024-11-10 23:11] VITALS: BMI 33.0
--- NOTE | 2024-11-10 23:16 | ADMGEN ---
This patient, Marnie Jones, was admitted to Medical Room 245-. Patient/family oriented to hospital policies and general routines including ID bracelet, bed and alarms, visiting hours, pain management, procedures, bathroom and other care routines, personal items, smoking policy, room service/diet, and visiting hours. Information on how to activate the Rapid Response Team has been discussed. Patient/Family are encouraged to report perceived risks to care and to ask questions if they do not understand what they are told or what they should do.
[2024-11-10] MEDS: DOXYCYCLINE 100 MG/NS 100 ML 100 MG/100 ML BAG IVPB (23:44)
[2024-11-11] MEDS: cefoTEtan DISODIUM INJ 2 GM in DEXTROSE 5% IN WATER 50 ML IVPB ×3 (01:13→23:12)
[2024-11-11] MEDS: traMADol HCL (*CRX) 50 MG TABLET PO ×4 (02:14→22:28)
[2024-11-11] MEDS: metroNIDAZOLE 500 MG/ISO 100ML 500 MG/100 ML BAG 100 MG IVPB ×3 (05:29→22:01)
[2024-11-11 06:00] VITALS: BP 138/73; PULSE 56; RESP 18; TEMP 36.6; O2SAT 100
[2024-11-11 08:00] VITALS: PULSE 56; RESP 18; O2SAT 100
--- NOTE | 2024-11-11 08:11 | P.HP_ITS ---
H&P: HPI History of Present Illness Date/Time: 11/11/24 08:11 Chief Complaint: Constipation Narrative: This patient is a 28-year-old female with severe constipation vaginal bleeding. She presented to the emergency department in some distress. On CT the abdomen pelvis was performed. There is question of retained products. Pelvic ultrasound be performed this morning. We will continue to work on constipation. She received Mag citrate last night. She had a bowel movement. Will try a fleets enema and Mag citrate again today. With milk of magnesium to follow. Labs are normal. Review of Systems Review of Systems: All systems reviewed & are unremarkable except as noted in HPI and below Constitutional: Constitutional: Denies chills, Denies fatigue, Denies fever(s) and Denies weakness Eyes: Eyes: Denies blurry vision, Denies change in vision, Denies loss of peripheral vision, Denies loss of vision, Denies other visual disturbances and Denies eye pain ENT: Denies vertigo, Denies dizziness, Denies hearing loss, Denies mouth pain, Denies nasal obstruction, Denies neck mass and Denies neck pain Cardiovascular: Cardiovascular: Denies chest pain, Denies diaphoresis, Denies syncope, Denies leg edema and Denies dyspnea Respiratory: Respiratory: Denies chest congestion, Denies cough, Denies hemoptysis, Denies dyspnea and Denies wheezing Gastrointestinal: Gastrointestinal: Denies abdominal pain, Denies constipation, Denies diarrhea, Denies nausea and Denies vomiting Genitourinary: Genitourinary: Denies hematuria, Denies change in libido, Denies nocturia, Denies genital lesions, Denies flank pain and Denies urinary urgency Musculoskeletal: Musculoskeletal: Denies abnormal gait, Denies back pain, Denies myalgias, Denies arthralgias, Denies joint swelling, Denies muscle weakness and Denies neck pain Integumentary/Breasts: Skin/Breast: Denies swelling, Denies breast pain, Denies breast mass, Denies dry skin, Denies nipple discharge, Denies unusual bruising and Denies jaundice Neurologic: Denies Neuro-related abnormal movements, Denies Abnormal speech present, Denies abnormal gait, Denies behavioral changes, Denies confusion, Denies vertigo, Denies dizziness, Denies syncope, Denies loss of vision, Denies memory loss, Denies convulsions and Denies weakness Psychiatric: Psychiatric: Denies abnormal sleep pattern, Denies behavioral changes, Denies change in libido, Denies confusion, Denies depression, Denies anhedonia and Denies memory loss Endocrine: Endocrine: Reports no additional endocrine complaints, Denies change in libido and Denies fatigue Hematologic/Lymphatic: Hematologic/Lymphatic: Reports no additional hematologic/lymphatic complaints Allergic/Immunologic: Allergic/Immunologic: Reports no additional allergic/immunologic complaints and Denies wheezing PMFSH Past Medical History Medical History Migraines, neuralgic IUP (intrauterine ), incidental Anxiety GERD (gastroesophageal reflux disease) Asthma Ectopic Surgical History Surgical History History of surgery on upper extremity History of dilation and curettage Family History Family History Other Family history non-contributory Social History Social History Years smoked: 15 Smoking status: Never smoker Second hand tobacco smoke exposure: No Alcohol intake: current Drinks per week: 1 Substance use: never Substance use type: does not use Do You Feel Safe in your Home?: Yes Lack of Transportation: No Lack of Food: Never True Current Housing: I Have Housing Concerned About Future Housing: No Difficulty Paying Gas/Electric Bills: No Difficulty Paying for Meds: No Currently Unemployed: No Education: High School Diploma/GED Difficulty w/ Childcare or Family Care: No Spiritual care concerns: No Meds Home Medications and Allergies Home Medications ?Medication ?Instructions ?Recorded ?Confirmed ?Type sumatriptan succinate 50 mg tablet 50 mg PO BID 10/29/23 11/10/24 History docusate sodium 100 mg capsule 100 mg PO BID PRN Constipation #60 11/03/24 11/10/24 Rx caps ibuprofen 600 mg tablet 600 mg PO Q6H PRN Cramping #30 tabs 11/03/24 11/10/24 Rx cephalexin 500 mg capsule 500 mg PO Q12H 5 days #10 caps 11/10/24 Rx Allergies Allergy/AdvReac Type Severity Reaction Status Date / Time No Known Allergies Allergy Verified 02/21/25 20:19 Vital Signs Vital Signs - 24 hr 11/10/24 18:41 11/10/24 22:00 11/10/24 22:11 Temperature 97.8 F 98 F Pulse Rate 112 H 93 67 Respiratory Rate 16 18 20 Blood Pressure 122/84 138/81 124/90 Pulse Oximetry 100 100 100 Oxygen Delivery Room Air 11/10/24 23:27 11/11/24 06:00 Temperature 98 F Pulse Rate 56 L Respiratory Rate 18 Blood Pressure 138/73 Pulse Oximetry 100 Oxygen Delivery Room Air Exam Const: General: cooperative, healthy appearing, comfortable and no acute distress Orientation/consciousness: oriented to person, oriented to place and oriented to time HENMT: Head: normal to inspection Ears: external ears normal Face/Nose/Sinus: Normal external nose present and normal facial exam Face and sinus: normal facial exam Eyes: General: appearance normal, both eyes and all related structures Neck: Neck: normal visual inspection, trachea midline and supple Resp: Auscultation: clear to auscultation bilaterally, no crackles, no rales, no rhonchi and no wheezes Cardio: Rate: regular rate Rhythm: regular rhythm Heart sounds: no click, no murmurs and no rubs GI: GI Palp: No abdominal tenderness, No Soft to palpation, No Tenderness to palpation present (GI) and No Palpable mass present Auscultation: normal bowel sounds Skin: General skin exam: normal color and no rashes or lesions noted Neuro: General: oriented to person, oriented to place and oriented to time Extrem: General: normal to inspection, no joint enlargement, no clubbing, cyanosis or edema, no pedal edema and no calf tenderness Psych: Appearance: grossly normal Mental Status: mental status grossly normal Speech and movement: Normal speech and movement present H&P: Results Labs Labs: Short CBC 11/10/24 Range/Units 20:22 WBC 11.0 H (4.5-10.0) K/mm3 Hgb 12.3 D (12.0-15.0) g/dL Hct 39.2 (37.0-47.0) % Plt Count 419 H (150-375) k/mm3 BMP 11/10/24 20:22 Sodium 140 Potassium 4.1 Chloride 107 Carbon Dioxide 21 L BUN 7 Creatinine 0.67 L Glucose 89 Calcium 9.0 Liver Function 11/10/24 Range/Units 20:22 Total Bilirubin 0.5 (0.2-1.3) mg/dL AST 24 (14-36) U/L ALT 30 (6-35) U/L Alkaline Phosphatase 95 (38-126) U/L Albumin 3.7 (3.5-5.1) g/dL Urine 11/10/24 Range/Units 20:22 Urine Color Yellow (Yellow) Urine Appearance Cloudy H (Clear) Urine pH 6.0 (5.0-9.0) Ur Specific [place] 1.011 (1.001-1.035) Urine Protein 1+ H (Negative) mg/dL Urine Glucose (UA) Negative (Negative) mg/dL Assessment and Plan Assessment and plan (1) Constipation: Code(s): K59.00 - Constipation, unspecified Status: Acute Plan This patient is a 28-year-old female with severe constipation vaginal bleeding. She presented to the emergency department in some distress. On CT the abdomen pelvis was performed. There is question of retained products. Pelvic ultrasound be performed this morning. We will continue to work on constipation. She received Mag citrate last night. She had a bowel movement. Will try a fleets enema and Mag citrate again today. With milk of magnesium to follow. Labs are normal.
[2024-11-11] MEDS: DOXYCYCLINE 100 MG/NS 100 ML 100 MG/100 ML BAG IVPB ×2 (10:40→19:58)
[2024-11-11 14:00] VITALS: BP 116/83; PULSE 58; RESP 16; TEMP 36.5; O2SAT 100
[2024-11-11] MEDS: BISACODYL 10 MG SUPPOSITORY RECTAL (14:57)
--- OUTSIDE RECORDS SUMMARY | 2024-11-11 15:40 | XMS_ITS | Continuity of Care Document ---
Author Organization [facility] Address [address] [place] [address] Phone Care Team Providers Care Vice President Talent Management Name Role Phone Unavailable Unavailable Unavailable Medications [...] Diagnoses Date Provider Providers Copied on Encounter [facility] , [address], [place], [place], [address], [place] tel:[phone] [facility] Encounter for dental exam and cleaning w abnormal findings No Information Referring Provider: Farooq Win, [address], [place], [address] . tel:[phone] [facility] , [address], [place], [place], [id number], [place] tel:[phone] [facility] Dental caries on smooth surface penetrating into pulp No Information Referring Provider: Farooq Win, [address], [place], [address] . tel:[phone] [facility] , [address], [place], [place], [address], tel:[phone] [facility] Encounter for dental exam and cleaning w abnormal findings No Information [facility] , [facility] [address], [place], [place], [id number], tel:[phone] [facility] [place] Encounter for dental exam and cleaning w abnormal findings No Information Referring Provider: Yoseph Ramon, [address], [place], [address] . tel:[phone] [facility] , [address], [place], [place], [address], tel:[phone] [facility] [place] Encounter for dental exam and cleaning w abnormal findings Antonio Yuen. [address], [place], [place], [address]. tel:[phone] Referring Provider: Wilfrid Alvarez, [address] [address], [place], [address] . tel:[phone] [facility] , [address] [address], [place], [place], [address], tel:[phone] [facility] No Information Lawrence Roberson. [address], [id number], . tel:[phone] Family History Family Member Type Diagnosis Age At Onset No Information Payers Payer name Insurance type Covered democrat ID john dennison(s) D [facility] Community Plan [id number] Social History Type Description Quantity Date Captured [...]
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
--- OUTSIDE RECORDS SUMMARY | 2024-11-11 15:40 | XMS_ITS | Continuity of Care Document ---
Author Organization [facility] Address [address] [place] [address] Phone Care Team Providers Care Machine Maintenance Repairer Name Role Phone Aminta PT, DPT, DEBIT, Brittany Unavailable Unavailable Procedures Procedure Date Ulnar nerve palsy - figure 8 Safe Position Gutter Hand based 021 Therapeutic Exercise Orthotic Mgmt and Training Long Arm Splint wrist included 20 Therapeutic Activities MP Supervisor Packing-based Orthotic Mgmt and Training Advance Directives Directive Yes / No Effective Date File Name No Information Encounters Encounter Description Practice Location Reason(s) For Visit Diagnoses Date Provider Providers Copied on Encounter [facility] [facility], [place], [place], [id number], tel:[phone] Katie Alvarenga No Information Aminta Soto . . [facility] [place], [address]. tel:[phone] [place] [address] [address] [facility], [place], [place], [id number], tel:[phone] Katie Alvarenga No Information Aminta Soto . . Ref[facility] Provider: [id number], [place], [address]. tel:[phone] [facility], [place], [place], [id number], tel:[phone] Katie Alvarenga No Information Olaf Anderson . Referring Provider: Mookie Frank, [facility] [address], [place], [address]. tel:[phone] Family History Family Member Type Diagnosis Age At Onset No Information Payers Payer name Insurance type Covered republican ID Authoriza tion(s) Self Pay Full Charges [...]
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
--- OUTSIDE RECORDS SUMMARY | 2024-11-11 15:40 | XMS_ITS | Clinical Summary ---
Author Organization [facility] Address [address] [place] [address] Phone Care Team Providers Care Casing Sewer Name Role Phone Unavailable Primary Care Provider [...] STL ABSTRACTION Provider, Abstract 08/23/2024 10:00 AM WATER PIPE INSTALLER - 08/23/2024 11:59 PM WATER PIPE INSTALLER Hospital Encounter [facility] Maternal and Ground Floor [facility] [address] [place] [phone] Sheila Chang MD Discharge Disposition: Home or Self Care 08/22/2024 External Device Data STL ABSTRACTION Provider, Abstract 08/16/2024 2:45 PM WATER PIPE INSTALLER Initial [facility] Maternal and Medicine [place] [address] [facility] [address] [place] [address] Sheila Chang MD Poor growth affecting management of mother in second trimester, single or unspecified fetus (Primary Dx); 26 weeks gestation of 08/16/2024 1:30 PM WATER PIPE INSTALLER - 08/16/2024 11:59 PM WATER PIPE INSTALLER Hospital Encounter [facility] Maternal and Ground Floor S [facility] [address] [place] [phone] Mary Campbell MD Discharge Disposition: Home or Self Care from Last 3 Months Social History Tobacco [...] Comments Blood Pressure 113/66 08/16/2024 3:27 PM WATER PIPE INSTALLER Pulse 90 08/16/2024 3:27 PM WATER PIPE INSTALLER Temperature - - Respiratory Rate - - Oxygen Saturation - - Inhaled Oxygen Concentration - - Weight 79.4 kg (175 lb) 08/16/2024 3:27 PM WATER PIPE INSTALLER Height 154.9 cm (5' 1 ) 08/16/2024 3:27 PM WATER PIPE INSTALLER Body Mass Index 33.07 08/16/2024 3:27 PM WATER PIPE INSTALLER Plan of Treatment Health Maintenance Due Date [...] LTD+UMB ART DOPPLER Routine 08/23/2024 10:31 AM WATER PIPE INSTALLER Poor growth affecting management of mother in second trimester, fetus 1 of multiple gestation US OB DETAIL SINGLE GEST Routine 08/16/2024 2:58 PM WATER PIPE INSTALLER Abnormal head circumference in relation to growth and age standard from Last 3 Months Results * US OB LTD+UMB ART DOPPLER (08/23/2024 10:31 AM WATER PIPE INSTALLER) Anatomical Region Laterality Modality Pelvis Ultrasound 08/23/2024 11:1 5 AM WATER PIPE INSTALLER Narrative 08/23/2024 10:40 AM WATER PIPE INSTALLER STL LIMITED ----- Pat. Name: MARNIE JONES Study Date: 08/23/2024 11:15am Pat. NO: [id number] Referring MD: MARY CAMPBELL MD Site: [facility] Store Coordinator: Latanya Boss RDMS : 1995 Age: 28 ----- INDICATION ----- Intrauterine Growth Restriction (IUGR) Circumvallate Placenta History of PTL/PTD in Previous , Currently CODING ----- Diagnoses Z3A.27: Weeks of gestation O09.212: Supervision of with history of pre-term labor O43.112: Circumvallate placenta O36.5920: Maternal care for other known or suspected poor growth Procedures 59581: Ultrasound, uterus, real time with image documentation, limited one or more fetuses 97638: Doppler velocimetry, ; umbilical artery 13405: Doppler velocimetry, ; middle cerebral artery METHOD [...] PI 1.91 47% Bahlmann RI 0.83 67% Bahlmann PS 40.41 cm/s PS 1.15 MoM ED 6.82 cm/s S / D 5.93 CPR PI 1.26 2% Ebbing GROWTH OVERVIEW ----- Exam date GA BPD (mm) HC (mm) AC (mm) FL (mm) HL (mm) EFW (g) 08/16/2024 26w 0d 65.1 50% 233.7 11% 197.9 7% 49.5 57% 44.8 63% 813 20% COMMENT ----- Patient's name and date of were verified by the self pay collector prior to the exam. IMPRESSION ----- Viable [...] testing and ultrasounds in the center at [place] if she chooses. Procedure Note Chandler Salas MD - 08/23/2024 STL LIMITED ----- Pat. Name:Pedrito JONES Date:08/23/2024 11:15am Pat. NO: [id number] MD:MARY CAMPBELL [facility]Latanya Boss RDMS :1995Age:28 ----- INDICATION ----- Intrauterine Growth Restriction (IUGR) Circumvallate Placenta History of PTL/PTD in Previous , Currently CODING ----- Diagnoses Z3A.27: Weeks of gestation O09.212: Supervision of with history ofpre-term labor O43.112: Circumvallate placenta O36.5920: Maternal care for other known orsuspected poor growth Procedures 83789: Ultrasound, uterus, real time withimage documentation, limited one or more fetuses 01694: Doppler velocimetry, ; umbilicalartery 17674: Doppler velocimetry, ; middle cerebralartery METHOD ----- Transabdominal ultrasound examination ----- Vora . Number of fetuses: 1 DATING ----- GA by prior [id number] w + 0 d WILLIE by prior [...] and date of were verified by the self pay collector prior tothe exam. IMPRESSION ----- Viable at [...] testing and ultrasounds in the perinatalcenter at [place] if she chooses. us Sheila Chang MD US ORDERABLES Final Result * US OB DETAIL SINGLE GEST (08/16/2024 2:58 PM WATER PIPE INSTALLER) Anatomical Region Laterality Modality Pelvis Ultrasound 08/16/2024 1:58 PM WATER PIPE INSTALLER Narrative 08/16/2024 2:56 PM WATER PIPE INSTALLER STL COMP ----- Pat. Name: MARNIE JONES Study Date: 08/16/2024 1:58pm Pat. NO: [id number] Referring MD: Site: [facility] Store Coordinator: Clair Hicks RDMS : 1995 Age: 28 [...] Z36.3: Encounter for screening for malformations Procedures 71036: Ultrasound, uterus, real time with image documentation, and maternal evaluation plus detailed anatomic examination, transabdominal approach 48310: Doppler velocimetry, ; umbilical artery 37379: Doppler velocimetry, ; middle cerebral artery METHOD [...] 1 lb 13 oz EFW by Hadlock ([id number]) Head / Face / Neck Biometry: Fuel Cell Repairer 3.6 mm CM 5.0 mm 14% Nicolaides [...] view. RVOT view. LVOT view. 3-vessel view. 4-txmezu-yvfdjmf view. Situs. Aortic arch view. Ductal arch [...] and date of were verified by the self pay collector before the exam IMPRESSION ----- Vora @ [...] Pat. Name:Pedrito JONES Date:08/16/2024 1:58pm Pat. NO: [id number] MD: [facility]Clair Hicks RDMS :1995Age:28 ----- INDICATION ----- Anatomy Survey low risk NIPT Intrauterine Growth Restriction (IUGR) Circumvallate Placenta History of PTL/PTD in Previous , 36 weeks PPROM Currently CODING ----- Diagnoses Z3A.26: Weeks of gestation O09.212: Supervision of with history ofpre-term labor O43.112: Circumvallate placenta O36.5920: Maternal care for other known orsuspected poor growth Z36.3: Encounter for screening formalformations Procedures 99894: Ultrasound, uterus, real time withimage documentation, and maternal evaluation plus detailed anatomic examination,transabdominal approach 39249: Doppler velocimetry, ; umbilicalartery 28953: Doppler velocimetry, ; middle cerebralartery METHOD ----- Transabdominal ultrasound examination ----- Vora . Number of fetuses: 1 DATING ----- Method of dating:based on stated WILLIE GA by prior [id number] w + 0 d WILLIE by prior [...] 1 lb 13 oz EFW by Hadlock ([id number]) Head / Face / Neck Biometry: Fuel Cell Repairer 3.6 mm CM 5.0 mm 14%Nicolaides Inner [...] 4-chamber view. RVOT view. LVOT view. 3-vesselview. 2-uzpvmw-zmpvueg view. Situs. Aortic arch view. Ductal arch [...] and date of were verified by the self pay collector beforethe exam IMPRESSION ----- Vora @ 26w [...]
--- OUTSIDE RECORDS SUMMARY | 2024-11-11 15:40 | XMS_ITS | Patient Health Summary ---
Author Organization [facility] Address [address] [place] [address] Care Team Providers Care Teller Vault Name Role Phone Andres Angela MD Unavailable [phone] Andres Angela MD Unavailable [phone] Pcp, Carolina Eid Primary Care Provider Unav ailable Note from [facility],non-owned Affiliates and Associated Physician Practices is amultiple site organization consisting of ambulatory clinics and hospital sitesin [place], [place], [place] and [place]. This disclosure is being madepursuant to the Care Everywhere program and may not contain all information available regarding this patient. Last updated 18.[facility] Allergies No known active allergies Medications * [...] Comments Blood Pressure 115/71 10/24/2024 2:25 PM SILVER RECOVERY OPERATOR Pulse 76 10/24/2024 2:25 PM SILVER RECOVERY OPERATOR Temperature 37 C (98.6 F) 12/04/2020 10:16 AM CDT Respiratory Rate 18 12/04/2020 10:16 AM CDT Oxygen Saturation 100% 10/03/2024 9:11 AM SILVER RECOVERY OPERATOR Inhaled Oxygen Concentration - - Weight 79.2 kg (174 lb 9.6 oz) 08/30/2024 11:33 AM SILVER RECOVERY OPERATOR Height 154.9 cm (5' 1 ) 12/04/2020 10:16 AM CDT Body Mass Index 32.99 12/04/2020 10:16 AM CDT Procedures * BIOPHYSICAL PROFILE W NST(Performed 10/24/2024) Performed for Aversion to food: limiting protein intake, Abnormal ultrasound: dopplers elevated S/d ratio, High-risk in third trimester ([facility]), Previous baby with growth restriction, 37 weeks gestation of ([facility]) * BIOPHYSICAL PROFILE W NST(Performed 10/17/2024) Performed for Encounter for maternal care for suspected poor growth in roman inthird trimester ([facility]), Aversion to food: limiting protein intake, Abnormal ultrasound: dopplers elevated S/d ratio, High-risk in third trimester ([facility]), Encounter for screening ([facility]) * BIOPHYSICAL PROFILE W NST(Performed 10/10/2024) Performed for Encounter for maternal care for suspected poor growth in roman inthird trimester ([facility]), Aversion to food: limiting protein intake, Abnormal ultrasound: dopplers elevated S/d ratio, High-risk in third trimester ([facility]), Encounter for screening ([facility]) * BIOPHYSICAL PROFILE W NST(Performed 10/03/2024) Performed for Encounter for maternal care for suspected poor growth in roman inthird trimester ([facility]), Aversion to food: limiting protein intake, Abnormal ultrasound: dopplers elevated S/d ratio, High-risk in third trimester ([facility]), Encounter for screening ([facility]) * BIOPHYSICAL PROFILE W NST(Performed 09/19/2024) Performed for Encounter for maternal care for suspected poor growth in roman inthird trimester ([facility]), Aversion to food: limiting protein intake, Abnormal ultrasound: dopplers elevated S/d ratio, High-risk in third trimester ([facility]), Encounter for screening ([facility]) * SONOGRAM - COMPLETE(Performed 08/30/2024) Performed for SGA (small for gestational age) ([facility]), Encounter for anatomic survey ([facility]) * US OB LESS 14 WKS W TRANSV W DOPP(Performed 12/04/2020) Performed for Threatened miscarriage ([facility]), Vaginal bleeding in , first trimester [...] normal first in first trimester ([facility]) * BLOOD GASES CORD ART (ISTAT)(Performed [...] mother, third trimester, notapplicable or unspecified fetus ([facility]) * CULTURE URINE(Performed 03/07/2017) Performed for IUGR (intrauterine growth restriction) affecting care of mother, third trimester, notapplicable or unspecified fetus ([facility]) * EKG 12-LEAD(Performed 03/05/2017) Performed for Tachycardia * TSH(Performed 03/05/2017) Performed for IUGR (intrauterine growth restriction) affecting care of mother, third trimester, notapplicable or unspecified fetus ([facility]) * COMPREHENSIVE METABOLIC PANEL(Performed 03/05/2017) Performed for IUGR (intrauterine growth restriction) affecting care of mother, third trimester, notapplicable or unspecified fetus ([facility]) * CBC W AUTO DIFFERENTIAL(Performed 03/05/2017) Performed for IUGR (intrauterine growth restriction) affecting care of mother, third trimester, notapplicable or unspecified fetus ([facility]) * CULTURE STREP B(Performed 03/03/2017) Performed for Encounter for supervision of normal first in first trimester ([facility]) * GLUCOSE PROTEIN KETONE URINE - POINT OF CAR(Performed 03/03/2017) Performed for Encounter for supervision of normal first in first trimester ([facility]) * BIOPHYSICAL PROFILE W NST(Performed 02/26/2017) Performed for Uterine size date discrepancy , third trimester ([facility]) * BIOPHYSICAL PROFILE W NST(Performed 02/24/2017) Performed for Uterine size date discrepancy , third trimester ([facility]) * CHLAMYDIA + GC AMPLIFIED PROBE(Performed 02/24/2017) Performed for Vaginal discharge * GLUCOSE PROTEIN KETONE URINE - POINT OF CAR(Performed 02/24/2017) Performed for Encounter for supervision of normal first in first trimester ([facility]) * BIOPHYSICAL PROFILE W NST(Performed 02/17/2017) Performed for Uterine size date discrepancy , third trimester ([facility]) * GLUCOSE PROTEIN KETONE URINE - POINT OF CAR(Performed 02/17/2017) Performed for Encounter for supervision of normal first in first trimester ([facility]) * BIOPHYSICAL PROFILE W NST(Performed 02/10/2017) Performed for Uterine size date discrepancy , third trimester ([facility]) * SONOGRAM - LIMITED(Performed 02/04/2017) * TYPE + SCREEN PANEL(Performed 02/03/2017) * CBC W AUTO DIFFERENTIAL(Performed 02/03/2017) * COAGULATION PANEL W D-DIMER(Performed 02/03/2017) * BIOPHYSICAL PROFILE W NST(Performed 02/03/2017) Performed for Uterine size date discrepancy , third trimester ([facility]) * URINE MICROSCOPIC ONLY REFLEX TO CULTURE(Performed 01/31/2017) Performed for Encounter for supervision of normal first in first trimester ([facility]) * URINALYSIS REFLEX MICROSCOPIC REFLEX CULTURE(Performed 01/31/2017) Performed for Encounter for supervision of normal first in first trimester ([facility]) * VAS BILATERAL VENOUS DUPLEX LE(Performed 01/26/2017) Performed for SOB (shortness of breath) * XR CHEST 2VW(Performed 01/26/2017) Performed for SOB (shortness of breath) * URINALYSIS REFLEX MICROSCOPIC REFLEX CULTURE(Performed 01/26/2017) Performed for Encounter for supervision of normal first in first trimester ([facility]) * CULTURE URINE(Performed 01/26/2017) Performed for Encounter for supervision of normal first in first trimester ([facility]) * EKG 12-LEAD(Performed 01/26/2017) Performed for SOB (shortness of breath) * SONOGRAM - COMPLETE(Performed 01/25/2017) * GLUCOSE PROTEIN KETONE URINE - POINT OF CAR(Performed 01/25/2017) Performed for Encounter for supervision of normal first in first trimester ([facility]) * RPR(Performed 01/25/2017) Performed for Encounter for supervision of normal first in first trimester ([facility]) * CBC W AUTO DIFFERENTIAL(Performed 01/25/2017) Performed for Encounter for supervision of normal first in first trimester ([facility]) * GLUCOSE CHALLENGE(Performed 01/25/2017) Performed for Encounter for supervision of normal first in first trimester ([facility]) * IMAGING/RADIOLOGY/XRAY RESULTS ORDER(Performed 12/25/2016) * GLUCOSE PROTEIN KETONE URINE - POINT OF CAR(Performed 12/01/2016) Performed for Encounter for supervision of normal first in first trimester ([facility]) * CULTURE URINE(Performed 11/03/2016) Performed for Encounter for supervision of normal first in first trimester ([facility]) * GLUCOSE PROTEIN KETONE URINE - POINT OF CAR(Performed 11/03/2016) Performed for Encounter for supervision of normal first in first trimester ([facility]) * SONOGRAM - COMPLETE(Performed 11/03/2016) Performed for Encounter for supervision of normal first in first trimester ([facility]), Gastroesophageal reflux disease without esophagitis * GLUCOSE PROTEIN KETONE URINE - POINT OF CAR(Performed 10/06/2016) Performed for Encounter for supervision of normal first in first trimester ([facility]) * CBC W AUTO DIFFERENTIAL(Performed 09/04/2016) Performed for Encounter for supervision of normal first in first trimester ([facility]) * TYPE + SCREEN PANEL(Performed 09/04/2016) Performed for Encounter for supervision of normal first in first trimester ([facility]) * RPR(Performed 09/04/2016) Performed for Encounter for supervision of normal first in first trimester ([facility]) * RUBELLA IMMUNE STATUS(Performed 09/04/2016) Performed for Encounter for supervision of normal first in first trimester ([facility]) * HEPATITIS B SURFACE ANTIGEN W RFLX CONFIRMATION(Performed 09/04/2016) Performed for Encounter for supervision of normal first in first trimester ([facility]) * CYSTIC FIBROSIS MUTATION PANEL(Performed 09/04/2016) Performed for Encounter for supervision of normal first in first trimester ([facility]) * URINALYSIS REFLEX TO MICROSCOPIC NO CULTURE(Performed 09/04/2016) Performed for Encounter for supervision of normal first in first trimester ([facility]) * HEMOGLOBIN ELECTROPHORESIS(Performed 09/04/2016) Performed for Encounter for supervision of normal first in first trimester ([facility]) * HIV-1 HIV-2 ANTIBODY + HIV P24 AG PANEL(Performed 09/04/2016) Performed for Encounter for supervision of normal first in first trimester ([facility]) * OBSTETRIC PANEL (BEAKER)(Performed 09/04/2016) Performed for Encounter for supervision of normal first in first trimester ([facility]) * CHLAMYDIA + GC AMPLIFIED PROBE(Performed 09/04/2016) Performed for Encounter for supervision of normal first in first trimester ([facility]) * CULTURE URINE(Performed 09/04/2016) Performed for Encounter for supervision of normal first in first trimester ([facility]) * GLUCOSE PROTEIN KETONE URINE - [...] BIOPHYSICAL PROFILE W NST (10/24/2024 1:59 PM SILVER RECOVERY OPERATOR) Only the most recent of10 resultswithin the time period is included. Linked Results Indication ======== SGA and mildly reduced UA EDBF Incomplete Anatomy Screen Ectopic x2 History ====== OB History 6. Para 1 [id number] 1. live 2017. Gest. age 36 w [...] 4 lb 10 oz EFW by Hadlock ([id number]) IUGR Growth Overview = Exam date GA [...] at 37 weeks gestation. Coding ====== Procedures 99240: [place] [address]: Biophysical Profile W NST 63470: Umbilical Doppler 00126: MCA Doppler [facility] PACS Anatomical Region Laterality Modality Other 10/24/2024 1:59 PM SILVER RECOVERY OPERATOR R Reed Leslie MD [facility] ORDERABLES * SONOGRAM - COMPLETE (08/30/2024 10:39 AM SILVER RECOVERY OPERATOR) Only the most recent of5 resultswithin the time period is included. Linked Results Indication ======== SGA and Mildly Elevated UA Doppler on Outside Scan Ectopic x2 History ====== OB History 6. Para 1 [id number] Lab Tests Test Date Result NIPT Low [...] 2 lb 5 oz EFW by Hadlock ([id number]) Head / Face / Neck Biometry: Cephalic [...] adequately visualized: Heart / Thorax RVOT view. 5-pahsor-ovwvfrk view. Aortic arch view. Ductal arch view. [...] separate MFM visit note. Coding ====== Procedures [id number]: US Preg Uterus Detailed 17990: [facility]ilical [facility] RF nano PACS Anatomical Region Laterality Modality Other 08/30/2024 10:3 9 AM SILVER RECOVERY OPERATOR R Reed Leslie MD [facility] ORDERABLES * US OB LESS14 WK [...] on 12/04/2020 at 1:41 PM Madison Charles APRN-RN POOL US ORDERABLES * (ABNORMAL) URINE MICROSCOPIC ONLY REFLEX TO CULTURE (12/04/2020 11:00 AM CDT) Only the most recent of5 resultswithin the time period is included. Reflex Status Culture not indicated 12/04/2020 11:30 AM CDT [facility] RBC UA 3-5 None Seen, 0-2, 3-5 # /hpf 12/04/2020 11:30 AM CDT [facility] WBC UA 0-5 None Seen, 0-5 # /hpf 12/04/2020 11:30 AM CDT [facility] Bacteria UA Trace(A) None Seen 12/04/2020 11:30 AM CDT [facility] Squamous Epithelial Cells 3-5 None Seen, 0-2, 3-5 /hpf 12/04/2020 11:30 AM CDT [facility] Mucus UA 1+ /LPF 12/04/2020 11:30 AM CDT [facility] Urine URINE SPECIMEN OBTAINED BY CLEAN CATCH PROCEDURE / Unknown Collection / Unknown 12/04/2020 11:00 AM CDT 12/04/2020 11:13 AM CDT Narrative [facility] - 12/04/2020 11:30 AM CDT Madison REYNOLDSRN POOL LAB - URINALYSIS ORDERABLES [facility] [address] [place] [address] * (ABNORMAL) URINALYSIS REFLEX MICROSCOPIC REFLEX CULTURE (12/04/2020 11:00 AM CDT) Only the most recent of9 resultswithin the time period is included. Color UA Yellow Straw, Yellow 12/04/2020 11:22 AM CDT [facility] Clarity UA Cloudy(A) Clear 12/04/2020 11:22 AM CDT [facility] Glucose UA Negative Negative 12/04/2020 11:22 AM CDT [facility] Bilirubin UA Negative Negative 12/04/2020 11:22 AM CDT [facility] Ketone UA Negative Negative 12/04/2020 11:22 AM CDT [facility] Specific [place] UA 1.012 1.005 - 1.030 12/04/2020 11:22 AM CDT [facility] Blood UA 3+(A) Negative 12/04/2020 11:22 AM CDT [facility] pH UA 7.0 5.0 - 8.0 pH 12/04/2020 11:22 AM CDT [facility] Protein UA Negative Negative 12/04/2020 11:22 AM CDT [facility] Urobilinogen UA Negative Negative mg/dL 12/04/2020 11:22 AM CDT [facility] Nitrite UA Negative Negative 12/04/2020 11:22 AM CDT [facility] Leukocyte UA Negative Negative 12/04/2020 11:22 AM CDT [facility] Urine Microscopy Urine microscopy to follow 12/04/2020 11:22 AM CDT [facility] Reflex Status Culture not indicated 12/04/2020 11:22 AM CDT [facility] Urine URINE SPECIMEN OBTAINED BY CLEAN CATCH PROCEDURE / Unknown Collection / Unknown 12/04/2020 11:00 AM CDT 12/04/2020 11:13 AM CDT Narrative [facility] - 12/04/2020 11:22 AM CDT Madison BRANDT LAB - URINALYSIS ORDERABLES [facility] [address] [place] [address] * TYPE + SCREEN PANEL (12/04/2020 11:00 AM CDT) Only the most recent of4 resultswithin the time period is included. ABO Rh A POS 12/04/2020 11:55 AM CDT [facility] Comment:History checked. Antibody Screen NEG 11:55 AM CDT [facility] Blood Bank BLOOD SPECIMEN / Unknown Venipuncture / Unknown 12/04/2020 11:00 AM CDT 12/04/2020 11:14 AM CDT Madison BRANDT LAB - BLOOD BANK ORDERABLES [facility] [address] [phone] * (ABNORMAL) CBC W AUTO DIFFERENTIAL (12/04/2020 11:00 AM CDT) Only the most recent of11 resultswithin the time period is included. WBC 7.6 4.4 - 10.7 x10E9/L 12/04/2020 11:24 AM CDT [facility] WBC Corrected 12/04/2020 11:24 AM CDT [facility] RBC 4.58 3.80 - 5.20 x10E12/L 12/04/2020 11:24 AM CDT [facility] Hemoglobin 10.0(L) 12.0 - 15.6 gm/dL 12/04/2020 11:24 AM CDT [facility] Hematocrit 33.3(L) 35.9 - 45.5 % 12/04/2020 11:24 AM CDT [facility] MCV 72.7(L) 80.7 - 98.3 fl 12/04/2020 11:24 AM CDT [facility] MCH 21.8(L) 26.7 - 34.0 pg 12/04/2020 11:24 AM CDT [facility] MCHC 30.0(L) 30.8 - 35.9 gm/dL 12/04/2020 11:24 AM CDT [facility] Platelet Count 431(H) 153 - 416 x10E9/L 12/04/2020 11:24 AM CDT [facility] RDW-CV 18.9(H) 12.1 - 14.9 % 12/04/2020 11:24 AM CDT [facility] MPV 10.3 9.4 - 12.9 fl 12/04/2020 11:24 AM CDT [facility] Neutrophils % 54.7 44.0 - 73.0 % 12/04/2020 11:24 AM CDT [facility] Lymphocytes % 36.8 20.0 - 43.0 % 12/04/2020 11:24 AM CDT [facility] Monocytes % 6.1 5.0 - 13.0 % 12/04/2020 11:24 AM CDT [facility] Eosinophils % 1.7 0.0 - 6.0 % 12/04/2020 11:24 AM CDT [facility] Basophils % 0.4 0.0 - 2.0 % 12/04/2020 11:24 AM CDT [facility] Immature Granulocytes 0.3 0 - 1 % 12/04/2020 11:24 AM CDT [facility] Neutrophil Absolute 4.14 2.01 - 7.14 x10E9/L 12/04/2020 11:24 AM CDT [facility] Lymphocytes Absolute 2.78 1.07 - 3.94 x10E9/L 12/04/2020 11:24 AM CDT [facility] Monocytes Absolute 0.46 0.26 - 1.07 x10E9/L 12/04/2020 11:24 AM CDT [facility] Eosinophils Absolute 0.13 0 - 0.47 x10E9/L 12/04/2020 11:24 AM CDT [facility] Basophils Absolute 0.03 0 - 0.08 x10E9/L 12/04/2020 11:24 AM CDT [facility] Immature Granulocytes Absolute 0.02 0.00 - 0.06 x10E9/L 12/04/2020 11:24 AM CDT [facility] nRBC Auto 0 /100 WBC 12/04/2020 11:24 AM CDT [facility] Blood BLOOD SPECIMEN / Unknown Venipuncture / Unknown 12/04/2020 11:00 AM CDT 12/04/2020 11:14 AM CDT Madison Charles APRN-RN POOL LAB - HEMATOLOGY ORDERABLES Performing Organization Address City/State/[facility] Co de Phone Number [facility] [address] [place] [address] * (ABNORMAL) COMPREHENSIVE METABOLIC PANEL (12/04/2020 11:00 AM CDT) Only the most recent of7 resultswithin the time period is included. [facility] Glucose 91 70 - 105 mg/dL 12/04/2020 11:34 AM CDT [facility] Sodium 138 136 - 145 mmol/L 12/04/2020 11:34 AM CDT [facility] Potassium 4.0 3.5 - 5.1 [...] CDT 12/04/2020 11:14 AM CDT Madison Charles WORKFORCE INVESTMENT ACT CAREER MANAGER-RN POOL LAB - CHEMISTRY O RDERABLES [facility] [address] [place] [address] * HCG BETA BLOOD QUANTITATIVE (12/04/2020 11:00 AM CDT) Only the most recent of2 resultswithin the time period is included. hCG Quantitative 6.56 mIU/mL 12/05/19 11:41 AM CDT [facility] Blood BLOOD SPECIMEN / Unknown Venipuncture / Unknown 12/04/2020 11:00 AM CDT 12/04/2020 11:14 AM CDT Narrative [facility] - 12/04/2020 11:41 AM CDT [...] FSH >20 IU/L makes unlikely. Madison Charles APRN-RN POOL LAB - CHEMISTRY O RDERABLES Performing Organization Address [facility] Co de Phone Number [facility] [address] [place] [address] * CARDIAC EKG ORDER (08/09/2019 8:11 PM SILVER RECOVERY OPERATOR) Only the most recent of2 resultswithin the time period is included. Narrative 08/09/2019 8:11 PM SILVER RECOVERY OPERATOR Ordered by an unspecified provider. Scanned Document CARDIAC SERVICES ORD ERABLES * CT THORAX ABDOMEN PELVIS W CONT (08/07/2019 8:18 PM SILVER RECOVERY OPERATOR) Anatomical Region Laterality Modality Chest, Abdomen, Pelvis Computed Tomography 08/07/2019 8:30 PM SILVER RECOVERY OPERATOR Impressions 08/07/2019 8:37 PM SILVER RECOVERY OPERATOR No acute findings in the chest and abdomen. A trace of free fluid is visible in the pelvis in association with a 1.2 cm left adnexal cyst. Please see above for other findings. Reading Radiologist: Vincent Brooks MD on 08/07/2019 at 8:37 PM Narrative 08/07/2019 8:37 PM SILVER RECOVERY OPERATOR CT CHEST, ABDOMEN AND PELVIS INDICATION: [...] 08/07/2019 at 8:37 PM Cortez Thuc Hang WORKFORCE INVESTMENT ACT CAREER MANAGER-RN POOL CT ORDERABLES * CT CERVICAL SPINE NON CONTRAST (08/07/2019 7:54 PM SILVER RECOVERY OPERATOR) Anatomical Region Laterality Modality Spine Computed Tomogra phy 08/07/2019 8:42 PM SILVER RECOVERY OPERATOR Impressions 08/07/2019 8:43 PM SILVER RECOVERY OPERATOR No fracture can be identified. Please see above. Reading Radiologist: Vincent Brooks MD on 08/07/2019 at 8:43 PM Narrative 08/07/2019 8:43 PM SILVER RECOVERY OPERATOR Examination: CT Cervical Spine, without contrast. [...] grammatical or syntax problems by a trained biomedical specialist. For questions about the report, please [...] grammatical or syntax problems by a trained biomedical specialist. For questions about the report, please contact the Radiology Department. IMPRESSION No fracture can be identified. Please see above. Reading Radiologist: Vincent Brooks MD on 08/07/2019 at 8:43 PM Cortez Thuc Hang WORKFORCE INVESTMENT ACT CAREER MANAGER-RN POOL CT ORDERABLES * CT HEAD NON CONTRAST (08/07/2019 7:53 PM SILVER RECOVERY OPERATOR) Only the most recent of2 resultswithin the time period is included. Anatomical Region Laterality Modality Head Computed Tomogra phy 08/07/2019 8:23 PM SILVER RECOVERY OPERATOR Impressions 08/07/2019 8:24 PM SILVER RECOVERY OPERATOR No acute findings in the brain. Noncontrast brain CT. Please see above. Reading Radiologist: Vincent Brooks MD on 08/07/2019 at 8:24 PM Narrative 08/07/2019 8:24 PM SILVER RECOVERY OPERATOR EXAMINATION: CT BRAIN WITHOUT CONTRAST. Information [...] grammatical or syntax problems by a trained biomedical specialist. Findings: There is no intracranial mass-effect [...] grammatical or syntax problems by a trained biomedical specialist. Findings: There is no intracranial mass-effect [...] 08/07/2019 at 8:24 PM Cortez Thuc Hang WORKFORCE INVESTMENT ACT CAREER MANAGER-RN POOL CT ORDERABLES * EKG 12-LEAD (08/07/2019 6:37 PM SILVER RECOVERY OPERATOR) Only the most recent of6 resultswithin the time period is included. Ventricular Rate 83 BPM [facility] Atrial Rate 83 BPM [facility] P-R Interval 150 ms [facility] QRS Duration ms 82 ms [facility] Q-T Interval ms 366 ms [facility] QTC Calculation (Bezet) 430 ms [facility] Calculated P Ethan 58 degrees [facility] Calculated R Ethan 14 degrees [facility] Calculated T Ethan 3 degrees [facility] Interpretation EKG Sinus rhythm with Premature atrial complexes with Aberrant conduction Otherwise normal ECG No previous ECGs available Confirmed by RADHA SAAVEDRA MD ([id number]) on 08/10/2019 9:02:54 AM [facility] 08/07/2019 6:37 PM SILVER RECOVERY OPERATOR 08/10/2019 9:02 AM [facility] Reed Eng MD ECG ORDERABLES [facility] * (ABNORMAL) DRUG SCREEN TOX LIMITED BLD PNL 3 INHOUSE (08/07/2019 6:08 PM SILVER RECOVERY OPERATOR) Only the most recent of2 resultswithin the time period is included. Pathologist [facility] Acetaminophen <3.0(L) 10.0 - 30.0 ug/mL 08/07/2019 7:21 PM SILVER RECOVERY OPERATOR [facility] Ethanol <10.0 <10 mg/dL 08/07/2019 7:21 PM [facility] Salicylate <5.0(L) 15.0-<30.0 mg/dL 08/07/2019 7:21 PM [facility] Blood BLOOD SPECIMEN / Unknown Venipuncture / Unknown 08/07/2019 6:08 PM SILVER RECOVERY OPERATOR 08/07/2019 6:11 PM SILVER RECOVERY OPERATOR Narrative [facility] - 08/07/2019 7:21 PM [facility] ACETAMINOPHEN COMMENT Critical values: 4 [...] - CHEMISTRY SANGITA ARAIZA Performing Organization Address City/[facility] Co de Phone Number [facility] [address] [place] [address] * PTT (08/07/2019 6:08 PM SILVER RECOVERY OPERATOR) PTT 29.3 23.0 - 38.4 sec 08/07/2019 6:29 PM [facility] Blood BLOOD SPECIMEN / Unknown Venipuncture / Unknown 08/07/2019 6:08 PM SILVER RECOVERY OPERATOR 08/07/2019 6:11 PM SILVER RECOVERY OPERATOR Narrative [facility] - 08/07/2019 6:29 PM SILVER RECOVERY OPERATOR Heparin Therapeutic Range for PTT: 71.0 - 109.0 seconds. [place] BRANDT LAB - COAGULATIO N ORDERABLES Performing Organization Address [facility] Co de Phone Number [facility] [address] [place], [place] [id number] * (ABNORMAL) PT-INR (08/07/2019 6:08 PM SILVER RECOVERY OPERATOR) PT 14.3 12.1 - 14.8 sec 08/07/2019 6:29 PM SILVER RECOVERY OPERATOR [facility] INR 1.2(H) 0.9 - 1.1 08/07/2019 6:29 PM SILVER RECOVERY OPERATOR [facility] Blood BLOOD SPECIMEN / Unknown Venipuncture / Unknown 08/07/2019 6:08 PM SILVER RECOVERY OPERATOR 08/07/2019 6:11 PM SILVER RECOVERY OPERATOR Narrative [facility] - 08/07/2019 6:29 PM SILVER RECOVERY OPERATOR Conventional Warfarin Anticoagulant Therapy: INR Reference Range: 2.0-3.0 Intensive Warfarin Anticoagulant Therapy: INR Reference Range: 2.5-3.5 Diego BRANDT LAB - COAGULATIO N ORDERABLES Performing Organization Address City/[facility]/ZIP Co de Phone Number [facility] [address] [place] [address] * LIPASE BLOOD (08/07/2019 6:08 PM SILVER RECOVERY OPERATOR) Only the most recent of3 resultswithin the time period is included. Lipase 26 8 - 78 U/L 08/07/2019 6:32 PM SILVER RECOVERY OPERATOR [facility] Blood BLOOD SPECIMEN / Unknown Venipuncture / Unknown 08/07/2019 6:08 PM SILVER RECOVERY OPERATOR 08/07/2019 6:11 PM SILVER RECOVERY OPERATOR Diego BRANDT LAB - CHEMISTRY ORDERABLES Performing Organization Address [facility] Co de Phone Number [facility] [phone] [place] [phone] * XR CERVICAL SPINE 2 OR 3 VWS (08/07/2019 1:24 PM SILVER RECOVERY OPERATOR) Anatomical Region Laterality Modality Spine Radiographic Karen ging 08/07/2019 1:30 PM SILVER RECOVERY OPERATOR Narrative 08/07/2019 1:30 PM SILVER RECOVERY OPERATOR Cervical spine Indication for examination: Trauma [...] SPINE 2 OR 3VW (08/07/2019 1:23 PM SILVER RECOVERY OPERATOR) Anatomical Region Laterality Modality Spine Radiographic Karen ging 08/07/2019 1:30 PM SILVER RECOVERY OPERATOR Narrative 08/07/2019 1:31 PM SILVER RECOVERY OPERATOR Lumbar spine Indication for examination: Trauma [...] * HCG URINE QUALITATIVE (08/07/2019 11:56 AM SILVER RECOVERY OPERATOR) Pathologist [facility] hCG Qualitative Urine Negative Negative 08/07/2019 12:09 PM SILVER RECOVERY OPERATOR [facility] Urine URINE / Unknown Collection / Unknown 08/07/2019 11:56 AM SILVER RECOVERY OPERATOR 08/07/2019 12:02 PM SILVER RECOVERY OPERATOR Reed Eng MD LAB - URINALYSIS ORD ERABLES [facility] [address] [place] [address] * (ABNORMAL) DRUG SCREEN TOX URINE PANEL (08/07/2019 11:56 AM SILVER RECOVERY OPERATOR) Only the most recent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 Ashkenazi 10/15 to 97% Jew 10/14 to 90% (non-) -Marshallese to 69% 46 to 73% to 55% This interpretation is based on the clinical and family relationship information provided and the current understanding of the molecular genetics of this condition. MUTATIONS ANALYZED: G85E V520F F6070I 2183AA to G R117H G542X S7639K 2184delA R334W S549N 394delTT 2789+5G to A R347H S549R 621+1G to T 3120+1G to A R347P G551D 711+1G to T 3659delC A455E R553X 1078delT 3849+10kbC to T PfqfnE303 R560T 1717-1G to A 3876delA EautrN331 N2356F 1898+1G to A 3905insT METHODS/LIMITATIONS: DNA is isolated from the sample and tested for the 32 CF mutations on the Sanderson Array Platform (zkipster). Regions of the CFTR gene are amplified enzymatically and subjected to a solution-phase multiplex allele-specific primer extension with subsequent hybridization to a bead array and fluorescence detection. Polymorphisms F508C, I506V and I507V are included in this panel to rule out false positive [id number] homozygotes. Reflex testing of 5T is included in the panel for R117H interpretation. False positive or negative results may occur for reasons that include genetic variants, blood transfusions, bone marrow transplantation, erroneous representation of family relationships or contamination of a sample with maternal cells. REFERENCES: 1. Updates on Carrier Screening for Cystic Fibrosis. (2011) Am J Ob Gynecol 117(4):9050-3167 2. Errol et al. (2004) Shanthi Med 6:387-91 3. Chalo et al. (2002) Shanthi Med 4:379-391 4. Preconception and carrier screening for cystic fibrosis: (2001)ACOG.ACMG publication Results Released By: Vasile Pedersen, Ph.D., Energy Infrastructure Engineer Released By: Vasile Pedersen, Ph.D., Director Comment Comment 09/15/2016 1:08 PM SILVER RECOVERY OPERATOR [facility] ([facility]) Comment: The assay provides information intended [...] Unknown Venipuncture / Unknown 09/04/2016 11:20 AM SILVER RECOVERY OPERATOR 09/04/2016 11:43 AM SILVER RECOVERY OPERATOR Narrative [facility] ([facility]) - 09/15/2016 1:08 PM SILVER RECOVERY OPERATOR Performed at: [address] [place] [phone] [employer]: Adeola Granados MD, Phone: [phone] Ignacia Roca MD LAB - HEMATOLOGY ORDERABLES [facility]) [address] [place] [address] * LAB RESULTS ORDER (08/03/2013 3:05 AM SILVER RECOVERY OPERATOR) Narrative 08/03/2013 3:05 AM SILVER RECOVERY OPERATOR Ordered by an unspecified provider. Transcriptions Document, Scanned - 08/03/2013 3:05 AM CST Scanned Document LAB - THERAPEUTIC DR CARTAGENA MONITORING ORDERABLES * HCG URINE QUALITATIVE - POCT (IP) TANIA (12/04/2012 4:24 PM CDT) HCG Qual Urine Negative Negative [facility] POCT TESTING QC Verified Yes Yes [facility] PO CT TESTING Urine specimen (specimen) URINE / Unknown 12/04/2012 4:24 PM CDT Emmy Mccoy APRN-RN POOL LAB - POINT OF CAR E ORDERABLES Performing Organization Address [facility] Co de Phone Number [facility] POCT TESTING [address] [place] [address] * (ABNORMAL) URINALYSIS MICROSCOPIC ONLY (12/04/2012 4:19 PM CDT) RBC UA >100(A) 0-2, 2-5 # /hpf 12/04/2012 4:51 PM CDT [facility] WBC UA 5-10(A) 0-2, 2-5 # /hpf 12/04/2012 4:51 PM CDT [facility] Bacteria UA Trace None Seen, Trace 12/04/2012 4:51 PM CDT [facility] Epithelial Cell UA 2-5 0-2, 2-5 12/04/2012 4:51 PM CDT [facility] Mucus UA 1+ (none) 12/04/2012 4:51 PM CDT [facility] Urine specimen (specimen) URINE SPECIMEN OBTAINED BY CLEAN CATCH PROCEDURE / Unknown 12/04/2012 4:19 PM CDT 12/04/2012 4:28 PM CDT Emmy Darius STAUFFER-RN POOL LAB - URINALYSIS O RDERABLES Performing Organization Address [facility] Co de Phone Number [facility] [address] [place] [address] Care Teams Teller Vault Relationship Specialty Start Date End Date PcpCarolina PCP - General 04/16/23 Andres Angela MD Psychiatry 12/16/18 Andres Angela MD Psychiatry 11/16/19
--- OUTSIDE RECORDS SUMMARY | 2024-11-11 15:40 | XMS_ITS | Encounter Summary ---
Author Organization 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 Not on file Not on file Not on file documented as of this encounter Plan of Treatment Upcoming Encounters Date Type Department Care Team (Late st Contact Info) Description 11/19/2024 Hospital Encounter [address] [address] Gal Bass MD [address] [facility] [phone] [place] [address] documented as of this encounter Procedures Procedure Name Priority Date/Time Associated Diagnosis Comments SCAN - RADIOLOGY/IMAGING 03/03/2021 documented in this encounter Results * SCAN - RADIOLOGY/IMAGING (03/03/2021) Anatomical Region Laterality Modality Other us Provider Scanning Final Result documented in this encounter Visit Diagnoses Not on filedocumented in this encounter Care Teams Travel Rn Relationship Specialty Start Date End Date Brian Velarde DO [address] [place] [address] PCP - General Family Practice 07/25/20 documented as of this encounter
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
--- OUTSIDE RECORDS SUMMARY | 2024-11-11 15:42 | XMS_ITS | Continuity of Care Document ---
Author Organization [facility] Address [address] [place] [address] Phone Care Team Providers Care Assembler Show Motor Name Role Phone Aminta PT, DPT, DEBIT, Brittany Unavailable Unavailable Procedures Procedure Date Ulnar nerve palsy - figure 8 Safe Position Gutter Hand based 021 Therapeutic Exercise Orthotic Mgmt and Training Long Arm Splint wrist included 20 Therapeutic Activities MP Buffer Automatic-based Orthotic Mgmt and Training Advance Directives Directive Yes / No Effective Date File Name No Information Encounters Encounter Description Practice Location Reason(s) For Visit Diagnoses Date Provider Providers Copied on Encounter [facility] [facility] [address] [facility], [place], [place], [id number], tel:[phone] Katie Alvarenga No Information Aminta Soto . . [facility], [place], [address]. tel:[phone] [place] [address] [address], [place], [place], [address], tel:[phone] Katie Alvarenga No Information Aminta Soto . . Ref[facility]: [facility], [place], [address]. tel:[phone] [facility], [place], [place], [address], tel:[phone] Katie Alvarenga No Information Olaf Anderson . Referring Provider: Mookie Frank, [facility] [address], [place], [address]. tel:[phone] Family History Family Member Type Diagnosis Age [...]
--- OUTSIDE RECORDS SUMMARY | 2024-11-11 15:42 | XMS_ITS | Continuity of Care Document ---
Author Organization [facility] Address [address] [place] [address] Phone Care Team Providers Care Volcanologist Name Role Phone Unavailable Unavailable Unavailable Medications [...] Diagnoses Date Provider Providers Copied on Encounter [facility] , [address], [place], [place], [id number], [place] tel:[phone] [facility] Encounter for dental exam and cleaning w abnormal findings No Information Referring Provider: Farooq Win, [address], [place], [address] . tel:[phone] [facility] , [address], [place], [place], [address], [place] tel:[phone] [facility] Dental caries on smooth surface penetrating into pulp No Information Referring Provider: Farooq Win, [address], [place], [address] . tel:[phone] [facility] , [address], [place], [place], [address], tel:[phone] [facility] Encounter for dental exam and cleaning w abnormal findings No Information [facility] , [facility] [address], [place], [place], [id number], tel:[phone] [facility] Encounter for dental exam and cleaning w abnormal findings No Information Referring Provider: Yoseph Ramon, [address], [place], [address] . tel:[phone] [facility] , [address], [place], [place], [address], tel:[phone] [facility] Encounter for dental exam and cleaning w abnormal findings Antonio Yuen. [address], [place], [place], [address]. tel:[phone] Referring Provider: Wilfrid Alvarez, [address] [address], [place], [address] . tel:[phone] [facility] , [address] [address], [place], [place], [address], tel:[phone] [facility] No Information Lawrence Roberson. [address], [id number], . tel:[phone] Family History Family Member Type Diagnosis Age At Onset No Information Payers Payer name Insurance type Covered constitution party ID john dennison(s) D [facility] Community Plan MCAID [id number] Social History Type Description Quantity Date Captured [...]
[2024-11-11] MEDS: HYDROCORTISONE ACETATE 25 MG SUPPOSITORY RECTAL (17:17)
[2024-11-11 21:42] VITALS: BP 124/72; PULSE 69; RESP 18; TEMP 36.8; O2SAT 100
[2024-11-12 04:30] VITALS: BP 118/52; PULSE 43; RESP 17; TEMP 36.8; O2SAT 100
[2024-11-12] MEDS: metroNIDAZOLE 500 MG/ISO 100ML 500 MG/100 ML BAG 100 MG IVPB (06:00)
[2024-11-12] MEDS: traMADol HCL (*CRX) 50 MG TABLET PO (08:38)
[2024-11-12] MEDS: HYDROCORTISONE ACETATE 25 MG SUPPOSITORY RECTAL (10:29)
--- NOTE | 2024-11-12 10:33 | PM.GYNPNOP ---
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 Denies any abdominal pain. Denies any heavy vaginal bleeding. There was concern about retained products conception. It may also be clot. She is going to follow up in the office for greater evaluation. 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 Denies any abdominal pain. Denies any heavy vaginal bleeding. There was concern about retained products conception. It may also be clot. She is going to follow up in the office for greater evaluation. 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 - PN: Obj Data Vital Signs Vital Signs: Vital Signs - 24 hr 11/11/24 14:00 11/11/24 20:00 11/11/24 21:42 Temperature 97.7 F 98.2 F Pulse Rate 58 L 69 Respiratory Rate 16 18 Blood Pressure 116/83 124/72 Pulse Oximetry 100 100 Oxygen Delivery Room Air 11/12/24 04:30 Temperature 98.3 F Pulse Rate 43 L Respiratory Rate 17 Blood Pressure 118/52 L Pulse Oximetry 100 Oxygen Delivery Intake/Output Intake/Output: Intake & Output 11/09/24 11/10/24 11/11/24 11/12/24 23:59 23:59 23:59 23:59 Intake Total 150 1281 550 Balance 150 1281 550 Meds/Results Medications: Active Medications Generic Name Dose Route Start Last Admin Trade Name Freq PRN Reason Stop Dose Admin Hydrocortisone Acetate 25 mg 11/11/24 21:00 11/12/24 10:29 Hydrocortisone Acetate 25 Mg Suppository RECTAL 25 mg Q12HR FREDRICK Administration Cefotetan Disodium 2 gm/ 50 mls @ 100 mls/hr 11/10/24 23:00 11/11/24 23:54 Dextrose IVPB Infused Q12H FREDRICK Infusion Doxycycline Hyclate 100 mg in 100 mls @ 100 mls/hr 11/10/24 22:00 11/11/24 20:58 Vibramycin 100 Mg/Ns 100 Ml IVPB Infused Q12H FREDRICK Infusion Metronidazole 500 mg in 100 mls @ 100 mls/hr 11/10/24 22:00 11/12/24 06:00 Flagyl 500 Mg/Iso Soln 100 Ml IVPB 100 mls/hr Q8H FREDRICK Administration Tramadol HCl 50 mg 11/11/24 01:57 11/12/24 08:38 Tramadol Hcl (*Crx) 50 Mg Tablet PO 50 mg Q6H PRN Administration Pain Rated 4-6 Radiology Results: ITS Impressions Abdomen/Pelvis CT 11/10/24 21:37 IMPRESSION: 1. Stool distends the rectum. 2. Mildly thickened endometrial complex suspicious for retained products of conception. Pelvic/Transvag US 11/11/24 13:46 IMPRESSION: 1. Very hypoechoic material within the endometrial canal measuring up to 5 mm in thickness without internal vascular flow on color Doppler which could represent blood or avascular retained products of conception. 2. 1.4 cm subserosal fibroid. Labs 11/10/24 20:22 11/10/24 20:22
--- NOTE | 2024-11-12 10:35 | PM.DS ---
DS: Admitting Diagnosis Discharge Date 2024 Admitting Diagnosis Constipation, retained products conception DS: Discharge Diagnosis Discharge Diagnosis (1) Retained products of conception: Status: Acute (2) Constipation: Code(s): K59.00 - Constipation, unspecified Status: Acute DS: Summary Hospital Course Hospital Course: 28-year-old female who is approximately 9 days with 9 days of constipation. Treatment of constipation over a 36 hour with resolution. Evaluate for tearing products conception. Will continue to observe and evaluate in the office. She was discharged after less than 48 hours. Time Spent with Patient Time attestation: Total time spent providing and/or coordinating discharge services: Discharge Plan Discharge Consulting providers: Corie Hernandez Discharging Clinician: Jonathan Leslie Patient Disposition: Home, Self-Care Activity: pelvic rest Diet: regular Patient Instructions: Antibiotic Form Patient Language: [place] Stand Alone Forms: General Discharge Information Follow-up/Referrals: Jonathan Leslie MD [Physician] - Discharge Medications: New cephalexin 500 mg capsule 500 mg PO Q12H 5 Days Qty: 10 0RF Continued docusate sodium 100 mg Capsule 100 mg PO BID PRN (Reason: Constipation) Qty: 60 0RF ibuprofen 600 mg Tablet 600 mg PO Q6H PRN (Reason: Cramping) Qty: 30 0RF sumatriptan succinate 50 mg tablet 50 mg PO BID Date of admission: 11/11/24 12:43 Primary Care Provider: UNKNOWN,DOCTOR Admitting Provider: Jonathan Leslie Attending physician on admission: Jonathan Leslie Condition: Improved
--- NOTE | 2024-11-12 10:52 | P.CONGS_ITS ---
Assessment and Plan Assessment and plan (1) Constipation: Code(s): K59.00 - Constipation, unspecified Status: Acute Assessment and Plan: Continue bowel regimen, tolerating diet and having bowel function at this point, exam is completely benign, no acute surgical intervention required (2) Retained products of conception: Status: Acute Assessment and Plan: follow-up per OB History of Present Illness Consult details Consult date: 11/12/24 Reason for consult: abdominal pain Requesting physician: Jonathan Leslie MD Narrative: The patient is a 28-year-old female that presented with severe abdominal pain, distension, nausea and vomiting. The patient is 9 days and imaging significant for severe constipation, possibly retained products of conception. The patient was admitted to the OB service and has been treated with a bowel regimen for her severe constipation. We are asked to evaluate the patient for this severe constipation. The patient denies any previous similar episodes. The patient has had multiple bowel movements since starting the bowel regimen. She is now tolerating a regular diet. Review of Systems 2 Review of Systems: All systems reviewed & are unremarkable except as noted in HPI and below PMFSH Past Medical History Medical History Migraines, neuralgic IUP (intrauterine ), incidental Anxiety GERD (gastroesophageal reflux disease) Asthma Ectopic Surgical History Surgical History History of surgery on upper extremity History of dilation and curettage Family History Family History Other Family history non-contributory Social History Social History Years smoked: 15 Smoking status: Never smoker Second hand tobacco smoke exposure: No Alcohol intake: current Drinks per week: 1 Substance use: never Substance use type: does not use Do You Feel Safe in your Home?: Yes Lack of Transportation: No Lack of Food: Never True Current Housing: I Have Housing Concerned About Future Housing: No Difficulty Paying Gas/Electric Bills: No Difficulty Paying for Meds: No Currently Unemployed: No Education: High School Diploma/GED Difficulty w/ Childcare or Family Care: No Spiritual care concerns: No Meds Home Medications and Allergies Home Medications ?Medication ?Instructions ?Recorded ?Confirmed ?Type sumatriptan succinate 50 mg tablet 50 mg PO BID 10/29/23 11/10/24 History docusate sodium 100 mg capsule 100 mg PO BID PRN Constipation #60 11/03/24 11/10/24 Rx caps ibuprofen 600 mg tablet 600 mg PO Q6H PRN Cramping #30 tabs 11/03/24 11/10/24 Rx cephalexin 500 mg capsule 500 mg PO Q12H 5 days #10 caps 11/10/24 Rx Allergies Allergy/AdvReac Type Severity Reaction Status Date / Time No Known Allergies Allergy Verified 11/10/24 20:19 Vital Signs Vital Signs - 24 hr 11/11/24 14:00 11/11/24 20:00 11/11/24 21:42 Temperature 36.5 C 36.8 C Pulse Rate 58 L 69 Respiratory Rate 16 18 Blood Pressure 116/83 124/72 Pulse Oximetry 100 100 Oxygen Delivery Room Air 11/12/24 04:30 Temperature 36.8 C Pulse Rate 43 L Respiratory Rate 17 Blood Pressure 118/52 L Pulse Oximetry 100 Oxygen Delivery Exam 2 Const: General: cooperative, comfortable and no acute distress HENMT: Head: normal to inspection and normocephalic Eyes: General: appearance normal, both eyes and all related structures Neck: Neck: normal visual inspection, full ROM and no lymphadenopathy Resp: Auscultation: clear to auscultation bilaterally Cardio: Rate: regular rate Rhythm: regular rhythm GI: Inspection: normal to inspection and non-distended GI Palp: No abdominal tenderness and Yes Soft to palpation Skin: General skin exam: normal color and no rashes or lesions noted Neuro: General: patient oriented x3 and CN's II-XI intact bilaterally Extrem: General: normal to inspection and full ROM Results Labs 11/10/24 20:22 11/10/24 20:22 Labs: All other labs normal. Imaging Abdomen CT scan report/results: report reviewed and image reviewed
== END 2024-11-12 11:35 | disposition home or self-care (01) ==
LOC: ANHED 22:08 → ANH2MED 11-11 15:38
PROVIDERS: Admitting Provider Obstetrics & Gynecology; Emergency Provider Emergency Medicine; Visit Provider Obstetrics & Gynecology
DX: O99.63 Diseases of the digestive system complicating the puerperium (principal); K92.89 Other specified diseases of the digestive system; K59.00 Constipation, unspecified; O72.0 Third-stage hemorrhage; Z37.9 Outcome of delivery, unspecified; O86.20 Urinary tract infection following delivery, unspecified; N39.0 Urinary tract infection, site not specified; O99.53 Diseases of the respiratory system complicating the puerperium; J45.909 Unspecified asthma, uncomplicated; O99.345 Other mental disorders complicating the puerperium; F41.9 Anxiety disorder, unspecified; Z11.4 Encounter for screening for human immunodeficiency virus [HIV]; Z79.899 Other long term (current) drug therapy; Z79.1 Long term (current) use of non-steroidal anti-inflammatories (NSAID)
CPT/HCPCS: 36415; 74177; 76830; 76856; 80053; 81001; 83690; 83735; 85025; 96365; 96366; 96367; 96376; 99285; A9270; G0378; J0696; J1836; J7030; Q9967